=== PATIENT | male | born 1945 | race Caucasian/White ===

== ENCOUNTER → 2019-11-20 | Outpatient (CLI) | payer MEDICARE | END | disposition home or self-care (01) | LOC: LABWHC1 11:16 | PROVIDERS: ATTEND Urology | DX: C61 Malignant neoplasm of prostate (principal) | CPT/HCPCS: 36415; 84153 ==

== ENCOUNTER 2020-06-11 08:57 | Inpatient (IN) | payer MEDICARE ==
[2020-06-11] MEDS ORDERED: DILTIAZEM DRIP BOLUS FROM BAG 1 MG SOLN IV ONE (09:14)
[2020-06-11] MEDS ORDERED: SODIUM CHLORIDE 0.9% 500 ML 500 ML IV STA (09:14)
[2020-06-11] MEDS ORDERED: DILTIAZEM 125 MG in SODIUM CHLORIDE 0.9% 100 ML IV SCH (09:15)
[2020-06-11 09:21] LABS: Glucose,Whole Blood 112 mg/dL (75-99)
--- NOTE | 2020-06-11 09:37 | ED ---
General Adult HPI - General Source: patient, EMS, RN notes reviewed Mode of arrival: EMS Limitations: no limitations <Lauro Cabezas - Last Filed: 06/11/20 11:52> <Trena Trores - Last Filed: 06/12/20 23:03> - General Chief complaint: Syncope Stated complaint: syncope Time Seen by Provider: 06/11/20 09:01 - History of Present Illness Initial comments: This is a 75-year-old male presents emergency Department with chief complaint of a syncopal episode. Patient is brought in by [facility]. Patient states th at he started feeling lightheaded or dizzy he states she's had this happen the past states that he woke up and down he has no current headache or neck pain. Patient has a chest pain palpitations no nausea vomiting. Patient states that he does take multiple medications not exactly sure why he takes his medications. He is noted on metoprolol, Lasix, abduction, meclizine. Patient offers no other significant complaints. Patient states he had lab work yesterday. (Lauro Cabezas) - Related Data Home Medications Medication Instructions Recorded Confirmed Amitriptyline HCl [Elavil] 150 mg PO HS 06/11/20 06/11/20 Atorvastatin [Lipitor] 80 mg PO HS 06/11/20 06/11/20 Digoxin [Lanoxin] 125 mcg PO DAILY 06/11/20 06/11/20 Furosemide [Lasix] 20 mg PO DAILY 06/11/20 06/11/20 Levothyroxine Sodium [Synthroid] 50 mcg PO DAILY 06/11/20 06/11/20 Losartan Potassium 100 mg PO DAILY 06/11/20 06/11/20 Meclizine [Antivert] 12.5 mg PO DAILY 06/11/20 06/11/20 Metoprolol Tartrate [Lopressor] 50 mg PO BID 06/11/20 06/11/20 Potassium Chloride ER [K-Dur 10] 10 meq PO DAILY 06/11/20 06/11/20 Previous Rx's Medication Instructions Recorded Apixaban [Eliquis] 5 mg PO BID #60 tab 06/12/20 Allergies Allergy/AdvReac Type Severity Reaction Status Date / Time No Known Allergies Allergy Verified 06/11/20 11:41 Review of Systems ROS Other: All systems not noted in ROS Statement are negative. <Lauro Cabezas - Last Filed: 06/11/20 11:52> ROS Other: All systems not noted in ROS Statement are negative. <Trena Torres Carter - Last Filed: 06/12/20 23:03> ROS Statement: Those systems with pertinent positive or pertinent negative responses have been documented in the HPI. Past Medical History Past Medical History: Atrial Fibrillation, Coronary Artery Disease (CAD), Hypertension, Thyroid Disorder Additional Past Medical History / Comment(s): vertigo History of Any Multi-Drug Resistant Organisms: None Reported Past Surgical History: Hernia Repair Additional Past Surgical History / Comment(s): Left lung removed Past Psychological History: No Psychological Hx Reported Smoking Status: Former smoker Past Alcohol Use History: None Reported Past Drug Use History: None Reported <Lauro Cabezas - Last Filed: 06/11/20 11:52> General Exam Limitations: no limitations General appearance: alert, in no apparent distress Head exam: Present: atraumatic, normocephalic, normal inspection Eye exam: Present: normal appearance, PERRL, EOMI. Absent: scleral icterus, conjunctival injection, periorbital swelling ENT exam: Present: normal oropharynx, mucous membranes moist, TM's normal bilaterally, normal external ear exam. Absent: normal exam (Swelling inferiorly to the lobe patient reports is chronic) Neck exam: Present: normal inspection, full ROM. Absent: tenderness, meningismus, lymphadenopathy Respiratory exam: Present: normal lung sounds bilaterally. Absent: respiratory distress, wheezes, rales, rhonchi, stridor Cardiovascular Exam: Present: tachycardia, irregular rhythm, normal heart sounds. Absent: normal rhythm, systolic murmur, diastolic murmur, rubs, gallop, clicks GI/Abdominal exam: Present: soft, normal bowel sounds. Absent: distended, tenderness, guarding, rebound, rigid Neurological exam: Present: alert, oriented X3, CN II-XII intact, reflexes normal, other (Finger to nose intact bilaterally). Absent: motor sensory deficit Skin exam: Present: warm, dry, intact, normal color. Absent: rash <Lauro Cabezas - Last Filed: 06/11/20 11:52> Course Vital Signs 06/11/20 06/11/20 06/11/20 08:58 09:19 10:25 Temperature 98.3 F Pulse Rate 131 H 124 H Pulse Rate [ 136 H Apical] Respiratory 18 18 Rate Blood Pressure 138/90 141/87 O2 Sat by Pulse 97 96 Oximetry 06/11/20 06/11/20 06/11/20 12:01 12:40 14:19 Temperature 98.4 F 98.3 F Pulse Rate 120 H 115 H 92 Pulse Rate [ Apical] Respiratory 18 18 18 Rate Blood Pressure 112/84 120/76 148/77 O2 Sat by Pulse 96 97 95 Oximetry Medical Decision Making - Lab Data Result diagrams: 06/11/20 09:17 06/11/20 09:17 <Lauro Cabezas - Last Filed: 06/11/20 11:52> - Lab Data Result diagrams: 06/11/20 09:17 06/11/20 09:17 <Trena Torres - Last Filed: 06/12/20 23:03> - Medical Decision Making Patient presented for syncopal episode. Patient be in A. fib RVR patient is unsure about his history though is on digoxin, metoprolol most likely has underlying A. fib. EKG shows A. fib RVR. Patient will be admitted for rate control. Patient will be admitted with cardiology consult. Patient did have CT of the brain and C-spine secondary syncopal fall no acute abnormality. Patient's d-dimer was elevated to the chest is negative for PE. Patient's had prior surgical changes. (Lauro Cabezas) I was available for consultation in the emergency department. The history and physical exam were done by the midlevel provider. I was consulted for this patients care. I reviewed the case with the midlevel provider and based on their presentation of the patient, I agree with the assessment, medical decision making and plan of care as documented. Chart was dictated using [employer] dictation software. Attempts were made to correct any dictation errors however some typographical errors may persist. Patient was seen during a national state of emergency due to the Covid-19 pandemic. (Trena Torres) - Lab Data Lab Results 06/11/20 06/11/20 06/11/20 Range/Units 09:14 09:17 09:17 WBC 13.5 H (3.8-10.6) k/uL RBC 5.15 (4.30-5.90) m/uL Hgb 14.6 (13.0-17.5) gm/dL Hct 46.8 (39.0-53.0) % MCV 91.0 (80.0-100.0) fL MCH 28.4 (25.0-35.0) pg MCHC 31.2 (31.0-37.0) g/dL RDW 14.4 (11.5-15.5) % Plt Count 101 L (150-450) k/uL MPV 10.7 Neutrophils % 61 % Lymphocytes % 16 % Monocytes % 19 % Eosinophils % 1 % Basophils % 0 % Neutrophils # 8.2 H (1.3-7.7) k/uL Lymphocytes # 2.2 (1.0-4.8) k/uL Monocytes # 2.5 H (0-1.0) k/uL Eosinophils # 0.1 (0-0.7) k/uL Basophils # 0.1 (0-0.2) k/uL PT 10.4 (9.0-12.0) sec INR 1.0 (<1.2) APTT 23.3 (22.0-30.0) sec D-Dimer 1.64 H (<0.60) mg/L FEU Sodium (137-145) mmol/L Potassium (3.5-5.1) mmol/L Chloride (98-107) mmol/L Carbon Dioxide (22-30) mmol/L Anion Gap mmol/L BUN (9-20) mg/dL Creatinine (0.66-1.25) mg/dL Est GFR (CKD-EPI)AfAm (>60 ml/min/1.73 sqM) Est GFR (CKD-EPI)NonAf (>60 ml/min/1.73 sqM) Glucose (74-99) mg/dL POC Glucose (mg/dL) 112 H (75-99) mg/dL POC Glu Development Intern ID Peacock, Anu Calcium (8.4-10.2) mg/dL Magnesium (1.6-2.3) mg/dL Total Bilirubin (0.2-1.3) mg/dL AST (17-59) U/L ALT (4-49) U/L Alkaline Phosphatase (38-126) U/L Troponin I (0.000-0.034) ng/mL Total Protein (6.3-8.2) g/dL Albumin (3.5-5.0) g/dL TSH (0.465-4.680) mIU/L Free T4 (0.78-2.19) ng/dL Urine Color Urine Appearance (Clear) Urine pH (5.0-8.0) Ur Specific [place] (1.001-1.035) Urine Protein (Negative) Urine Glucose (UA) (Negative) Urine Ketones (Negative) Urine Blood (Negative) Urine Nitrite (Negative) Urine Bilirubin (Negative) Urine Urobilinogen (<2.0) mg/dL Ur Leukocyte Esterase (Negative) Digoxin ng/mL 06/11/20 06/11/20 06/11/20 Range/Units 09:17 09:17 09:17 WBC (3.8-10.6) k/uL RBC (4.30-5.90) m/uL Hgb (13.0-17.5) gm/dL Hct (39.0-53.0) % MCV (80.0-100.0) fL MCH (25.0-35.0) pg MCHC (31.0-37.0) g/dL RDW (11.5-15.5) % Plt Count (150-450) k/uL MPV Neutrophils % % Lymphocytes % % Monocytes % % Eosinophils % % Basophils % % Neutrophils # (1.3-7.7) k/uL Lymphocytes # (1.0-4.8) k/uL Monocytes # (0-1.0) k/uL Eosinophils # (0-0.7) k/uL Basophils # (0-0.2) k/uL PT (9.0-12.0) sec INR (<1.2) APTT (22.0-30.0) sec D-Dimer (<0.60) mg/L FEU Sodium 139 (137-145) mmol/L Potassium 4.6 (3.5-5.1) mmol/L Chloride 107 (98-107) mmol/L Carbon Dioxide 24 (22-30) mmol/L Anion Gap 8 mmol/L BUN 21 H (9-20) mg/dL Creatinine 0.97 (0.66-1.25) mg/dL Est GFR (CKD-EPI)AfAm 88 (>60 ml/min/1.73 sqM) Est GFR (CKD-EPI)NonAf 76 (>60 ml/min/1.73 sqM) Glucose 123 H (74-99) mg/dL POC Glucose (mg/dL) (75-99) mg/dL POC Glu Development Intern ID Calcium 8.4 (8.4-10.2) mg/dL Magnesium 1.6 (1.6-2.3) mg/dL Total Bilirubin 0.9 (0.2-1.3) mg/dL AST 32 (17-59) U/L ALT 24 (4-49) U/L Alkaline Phosphatase 103 (38-126) U/L Troponin I 0.019 (0.000-0.034) ng/mL Total Protein 7.2 (6.3-8.2) g/dL Albumin 4.2 (3.5-5.0) g/dL TSH 7.330 H (0.465-4.680) mIU/L Free T4 1.02 (0.78-2.19) ng/dL Urine Color Urine Appearance (Clear) Urine pH (5.0-8.0) Ur Specific [place] (1.001-1.035) Urine Protein (Negative) Urine Glucose (UA) (Negative) Urine Ketones (Negative) Urine Blood (Negative) Urine Nitrite (Negative) Urine Bilirubin (Negative) Urine Urobilinogen (<2.0) mg/dL Ur Leukocyte Esterase (Negative) Digoxin 0.6 ng/mL 06/11/20 Range/Units 10:37 WBC (3.8-10.6) k/uL RBC (4.30-5.90) m/uL Hgb (13.0-17.5) gm/dL Hct (39.0-53.0) % MCV (80.0-100.0) fL MCH (25.0-35.0) pg MCHC (31.0-37.0) g/dL RDW (11.5-15.5) % Plt Count (150-450) k/uL MPV Neutrophils % % Lymphocytes % % Monocytes % % Eosinophils % % Basophils % % Neutrophils # (1.3-7.7) k/uL Lymphocytes # (1.0-4.8) k/uL Monocytes # (0-1.0) k/uL Eosinophils # (0-0.7) k/uL Basophils # (0-0.2) k/uL PT (9.0-12.0) sec INR (<1.2) APTT (22.0-30.0) sec D-Dimer (<0.60) mg/L FEU Sodium (137-145) mmol/L Potassium (3.5-5.1) mmol/L Chloride (98-107) mmol/L Carbon Dioxide (22-30) mmol/L Anion Gap mmol/L BUN (9-20) mg/dL Creatinine (0.66-1.25) mg/dL Est GFR (CKD-EPI)AfAm (>60 ml/min/1.73 sqM) Est GFR (CKD-EPI)NonAf (>60 ml/min/1.73 sqM) Glucose (74-99) mg/dL POC Glucose (mg/dL) (75-99) mg/dL POC Glu Development Intern ID Calcium (8.4-10.2) mg/dL Magnesium (1.6-2.3) mg/dL Total Bilirubin (0.2-1.3) mg/dL AST (17-59) U/L ALT (4-49) U/L Alkaline Phosphatase (38-126) U/L Troponin I (0.000-0.034) ng/mL Total Protein (6.3-8.2) g/dL Albumin (3.5-5.0) g/dL TSH (0.465-4.680) mIU/L Free T4 (0.78-2.19) ng/dL Urine Color Light Yellow Urine Appearance Clear (Clear) Urine pH 6.5 (5.0-8.0) Ur Specific [place] 1.023 (1.001-1.035) Urine Protein Negative (Negative) Urine Glucose (UA) Negative (Negative) Urine Ketones Negative (Negative) Urine Blood Negative (Negative) Urine Nitrite Negative (Negative) Urine Bilirubin Negative (Negative) Urine Urobilinogen <2.0 (<2.0) mg/dL Ur Leukocyte Esterase Negative (Negative) Digoxin ng/mL Critical Care Time Critical Care Time: Yes Total Critical Care Time: 35 <Lauro Cabezas - Last Filed: 06/11/20 11:52> Critical Care Time: 35 minutes of critical care time were used to initiate evaluated the patient, ordering labs EKG chest x-ray and CT patient found to be in A. fib RVR patient was started on Cardizem given 2 boluses of 10 mg. Patient will be admitted for A. fib RVR was given his dose obstruction as a subtherapeutic. Patient did have multiple imaging which was negative for acute abnormality. (Lauro Cabezas) Disposition <Lauro Cabezas - Last Filed: 06/11/20 11:52> <Trena Torres - Last Filed: 06/12/20 23:03> Clinical Impression: Syncope, Atrial fibrillation with RVR Disposition: ADMITTED IP TO THIS HOSP Condition: Fair
[2020-06-11 09:40] LABS: Albumin 4.2 g/dL (3.5-5.0); Calcium 8.4 mg/dL (8.4-10.2); Total Bilirubin 0.9 mg/dL (0.2-1.3); Total Protein 7.2 g/dL (6.3-8.2)
[2020-06-11 09:42] LABS: Digoxin 0.6 ng/mL; Magnesium 1.6 mg/dL (1.6-2.3); Potassium 4.6 mmol/L (3.5-5.1)
[2020-06-11 09:49] LABS: Basophils # (A) 0.1 k/uL (0-0.2); Basophils % (A) 0 %; Eosinophils # (A) 0.1 k/uL (0-0.7); Eosinophils % (A) 1 %; HCT 46.8 % (39.0-53.0); HGB 14.6 gm/dL (13.0-17.5); Lymphocytes # (A) 2.2 k/uL (1.0-4.8); Lymphocytes % (A) 16 %; MCH 28.4 pg (25.0-35.0); MCHC 31.2 g/dL (31.0-37.0); Mean Platelet Volume 10.7; Monocytes # (A) 2.5 k/uL (0-1.0); Monocytes % (A) 19 %; Neutrophils # (A) 8.2 k/uL (1.3-7.7); Neutrophils % (A) 61 %; Partial Thromboplastin Time 23.3 sec (22.0-30.0); Platelet Count 101 k/uL (150-450); Prothrombin Time 10.4 sec (9.0-12.0); RBC 5.15 m/uL (4.30-5.90); RDW 14.4 % (11.5-15.5); WBC 13.5 k/uL (3.8-10.6)
--- NOTE | 2020-06-11 10:20 | XR ---
EXAMINATION TYPE: XR chest 2V DATE OF EXAM: 06/11/2020 COMPARISON: 09/21/2013 INDICATION: Pneumonectomy TECHNIQUE: Frontal and lateral views of the chest are obtained. FINDINGS: Heart and mediastinum are shifted into the left thorax. Surgical clips are at the left hilar region. There is opacification to the left hemithorax. Hyperinflation of the right lung is present. No suspic ious infiltrate.. 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 IMPRESSION: 1. Post left pneumonectomy changes.
--- NOTE | 2020-06-11 10:22 | CT ---
EXAMINATION TYPE: CT brain tdine wo con DATE OF EXAM: 06/11/2020 COMPARISON: 03/30/2013 HISTORY: Syncope and fall CT DLP: 1264 mGycm Automated exposure control for dose reduction was used. TECHNIQUE: CT scan of the head and cervical spine are performed without contrast. FINDINGS: Mild generalized degenerative change. Faint low-attenuation the white matter is nonspecif ic but most typical remote microvascular ischemia. Calvarium intact. Basal ganglia calcification seen . Intracranial atherosclerotic changes noted. There is increased soft tissue attenuation within the e xternal auditory canal. Truncation of the mastoid air cells on the left noted correlate for previous surgery versus congenital finding. Odontoid intact. Multilevel hypertrophic spurring and degenerative disc disease noted. Multilevel fac et arthropathy with multilevel neural foraminal encroachment. Suspect multilevel canal stenosis. Multilevel facet arthropathy. There is a left apical attenuation which likely represents the aorta an d postpneumonectomy changes. 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 IMPRESSION: 1. There is no acute fracture or dislocation evident in the cervical spine. Severe multilevel degener ative disc disease and hypertrophic spurring with multilevel foraminal encroachment and canal stenosi s suspected. 2. Degenerative change with the no acute hemorrhage or mass effect. 3. Suspected post pneumonectomy changes on the left with aberrant right subclavian artery. 4. There appears to be increased soft tissue attenuation involving the left external auditory canal e xtending to the middle ear correlate with physical exam.
--- NOTE | 2020-06-11 10:36 | CT ---
EXAMINATION TYPE: CT chest angio for PE DATE OF EXAM: 06/11/2020 COMPARISON: 09/02/2013 HISTORY: 75-year-old male Syncope, elevated d-dimer TECHNIQUE: Contiguous axial scanning of the chest performed with IV Contrast, patient injected with 1 00, wasted 22 ml mL of Isovue 370. Coronal/sagittal MIP reconstructions performed. CT DLP: 461.7 mGycm Automated exposure control for dose reduction was used. FINDINGS: Heart normal size without pericardial effusion. No reflux of contrast into the hepatic veins. This se ems to be some left atrial dilatation and large caliber to the main right pulmonary artery at 2.8 cm. The aorta shows aberrant right subclavian artery which takes a retroesophageal course. Ectatic upper descending thoracic aorta at 3.3 cm with scattered mild to moderate atherosclerotic kane cifications. Satisfactory opacification of the pulmonary arterial system. Breathing motion scattered in the upper and lower lungs. No visualized pulmonary embolus. No consolidation or pleural effusion on the right. Redemonstrated chronic postpneumonectomy changes on the left with chronic pleural effusion and pleura l thickening on the left, unchanged from 2014. Moderate-sized hiatal hernia. Questionable thickening here. Bones: Bridging anterior endplate spondylosis throughout. There seems to be some interbody ankylosis and kyphotic deformity at the thoracolumbar junction. IMPRESSION: 1. SOME BREATHING MOTION ARTIFACT. NO DEFINITE PULMONARY EMBOLUS. 2. SIMILAR CHANGES OF LEFT PNEUMONECTOMY WITH CORRESPONDING VOLUME LOSS AND CHRONIC PLEURAL FLUID ON THE LEFT. 3. CORRELATE FOR ELEVATED LEFT HEART PRESSURES GIVEN SOME LEFT ATRIAL DILATATION AND POSSIBLE PULMONA RY ARTERIAL HYPERTENSION. 4. INCIDENTAL ABERRANT RIGHT SUBCLAVIAN ARTERY. 5. MODERATE SIZED HIATAL HERNIA. SOME QUESTIONABLE THICKENING HERE MAY RELATE TO REDUNDANT STOMACH WA LL. CORRELATE WITH PATIENT'S SYMPTOMS TO DETERMINE THE NEED FOR DIRECT VISUALIZATION.
[2020-06-11 10:47] LABS: Appearance,Urine Clear (Clear); Bilirubin,Urine Negative (Negative); Blood,Urine Negative (Negative); Color,Urine Light Yellow; Glucose,Urine (UA) Negative (Negative); Ketones,Urine Negative (Negative); Leukocyte Esterase,Urine Negative (Negative); Nitrite,Urine Negative (Negative); PH, Urine 6.5 (5.0-8.0); Protein,Urine Negative (Negative); Specific Gravity,Urine 1.023 (1.001-1.035); Urobilinogen,Urine <2.0 mg/dL (<2.0)
[2020-06-11] MEDS ORDERED: NALOXONE 0.4 MG/ML 1 ML VIAL IV PRN (11:55)
[2020-06-11] MEDS ORDERED: DIGOXIN 125 MCG TAB PO SCH (12:00)
[2020-06-11] MEDS: ACETAMINOPHEN TAB 325 MG TAB PO PRN (12:12)
--- NOTE | 2020-06-11 13:16 | XR ---
EXAMINATION TYPE: XR shoulder complete RT DATE OF EXAM: 06/11/2020 COMPARISON: NONE HISTORY: Pain TECHNIQUE: Shoulder examined in 3 views FINDINGS: The humeral head articulates with the glenoid. There may be some deformity of the anterior humeral he ad which could be related to prior dislocation. There is thinning of the glenohumeral junction compat ible osteoarthritis. There is narrowing of the acromiohumeral space could indicate underlying chronic rotator cuff tear. The acromio-clavicular junction is normal. No acute fractures or dislocations are evident. A follow up study can be performed 7-10 days from acute trauma for continued pain. IMPRESSION: 1. No acute osseous abnormality. 2. Chronic changes including osteoarthritis and possible chronic rotator cuff tear.
--- NOTE | 2020-06-11 14:16 | P.HPIM ---
History of Present Illness H&P Date: 06/11/20 Chief Complaint: Syncope This is a 75-year-old male patient of Dr. Oglesby with past medical history of non-small cell lung cancer diagnosed in 2009 status post lobectomy, remote history of tobacco use, remote history of alcohol abuse, alcoholic peripheral neuropathy, hypertension, coronary artery disease, paroxysmal atrial fibrillation, hypothyroidism. Patient was just seen in the office yesterday and did not have any new symptoms at the time. Patient was sent this morning was standing to take his medications and felt some lightheadedness and an end up passing out. Patient thinks that he was out for about 5 minutes. His neighbor in the apartment below him heard the fall and EMS was contacted. Patient believes he hit his head and his right shoulder. Patient was then brought into [facility] emergency center for evaluation. Patient was found to be afebrile, heart rate 131, blood pressure 138/90, pulse ox 97%. Patient was treated for atrial fibrillation started on Cardizem drip. WBC 13.5, hemoglobin 14.6, platelet count 101. D-dimer 1.64. Blood sugar 112. Electrolytes normal. BUN 21 creatinine 0.97. Liver function tests normal. Troponin 0.019. Digoxin 0.6. Urinalysis negative. CT chest angiogram negative for definite chronic pleural fluid on the left. Correlate for elevated left heart pressures given left atrial dilatation and possible pulmonary artery hypertension. Incidental aberrant right subclavian artery. Moderate size hiatal hernia pulmonary embolism. CAT scan of the brain and cervical spine revealed no acute fracture dislocation the cervical spine. Severe multilevel degenerative disc disease and hypertrophic spurring with multilevel foraminal encroachment and canal stenosis suspected. Degenerative change with no acute hemorrhage or mass effect. Suspected post pneumonectomy changes on the left with aberrant right subclavian artery. Increased soft tissue attenuation involving the left external auditory canal. Chest x-ray revealed left pneumonectomy changes. EKG appears to be a supraventricular tachycardia. Patient to be admitted to the hospital and cardiology consult. Right shoulder x-rays, echocardiogram and carotid US ordered. Review of Systems Constitutional: Denies anorexia, Denies chills, Denies daytime sleepiness, Denies fatigue, Denies fever, Denies lethargy, Denies malaise, Denies poor appetite, Denies weakness, Denies weight loss Eyes: denies blurred vision, denies pain Ears, nose, mouth and throat: Reports vertigo, Denies dysphagia, Denies headache, Denies nasal congestion, Denies nasal discharge, Denies sore throat Cardiovascular: Reports lightheadedness, Reports syncope, Denies decreased exercise tolerance, Denies dyspnea on exertion, Denies edema, Denies leg edema, Denies palpitations, Denies rapid heart beat, Denies shortness of breath Respiratory: Denies cough, Denies cough with sputum, Denies dyspnea, Denies exc essive sputum, Denies hemoptysis, Denies home oxygen, Denies respiratory infections, Denies wheezing Gastrointestinal: Denies abdominal pain, Denies belching, Denies bloating, Denies BRBPR, Denies coffee ground emesis, Denies diarrhea, Denies hematemesis, Denies hematochezia, Denies loss of appetite, Denies nausea, Denies vomiting Genitourinary: Denies dysuria, Denies urinary retention Musculoskeletal: Denies frequent falls, Denies gait dysfunction, Denies muscle weakness, Denies myalgias Musculoskeletal: right: shoulder pain Integumentary: Denies pruritus, Denies rash, Denies wounds Neurological: Reports syncope, Reports vertigo, Denies aphasia, Denies change in mentation, Denies change in speech, Denies confusion, Denies gait dysfunction, Denies numbness, Denies weakness Psychiatric: Denies anxiety, Denies depression Endocrine: Denies fatigue, Denies weight change Past Medical History Past Medical History: Coronary Artery Disease (CAD), Hypertension, Thyroid Disorder Additional Past Medical History / Comment(s): vertigo History of Any Multi-Drug Resistant Organisms: None Reported Past Surgical History: Hernia Repair Additional Past Surgical History / Comment(s): Left lung removed Past Psychological History: No Psychological Hx Reported Smoking Status: Former smoker Past Alcohol Use History: None Reported Additional Past Alcohol Use History / Comment(s): Patient was a smoker one pack per day for 17 years and quit in 2008. He also has history of alcohol abuse with drinking 7 beers per day and quit 17 years ago. Past Drug Use History: None Reported - Past Family History Father Additional Family Medical History / Comment(s): Father at age 71 from a myocardial infarction. Mother Additional Family Medical History / Comment(s): Mother at age 92 from old age. Brother(s) Additional Family Medical History / Comment(s): Patient has 3 brothers alive with no major medical problems. One brother is dying from stomach cancer. Sister(s) Additional Family Medical History / Comment(s): Patient has one sister and she is alive. History of hypertension and hyperlipidemia. Medications and Allergies Home Medications Medication Instructions Recorded Confirmed Type Amitriptyline HCl [Elavil] 150 mg PO HS 06/11/20 06/11/20 History Atorvastatin [Lipitor] 80 mg PO HS 06/11/20 06/11/20 History Digoxin [Lanoxin] 125 mcg PO DAILY 06/11/20 06/11/20 History Furosemide [Lasix] 20 mg PO DAILY 06/11/20 06/11/20 History Levothyroxine Sodium [Synthroid] 50 mcg PO DAILY 06/11/20 06/11/20 History Losartan Potassium 100 mg PO DAILY 06/11/20 06/11/20 History Meclizine [Antivert] 12.5 mg PO DAILY 06/11/20 06/11/20 History Metoprolol Tartrate [Lopressor] 50 mg PO BID 06/11/20 06/11/20 History Potassium Chloride ER [K-Dur 10] 10 meq PO DAILY 06/11/20 06/11/20 History Apixaban [Eliquis] 5 mg PO BID #60 tab 06/12/20 Rx Allergies Allergy/AdvReac Type Severity Reaction Status Date / Time No Known Allergies Allergy Verified 06/11/20 11:41 Physical Exam Vitals: Vital Signs Temp Pulse Pulse Resp BP Pulse Ox 06/11/20 12:40 98.4 F 115 H 18 120/76 97 06/11/20 12:01 120 H 18 112/84 96 06/11/20 10:25 124 H 18 141/87 96 06/11/20 09:19 136 H 06/11/20 08:58 98.3 F 131 H 18 138/90 97 Intake and Output 06/10/20 06/11/20 06/11/20 22:59 06:59 14:59 Intake Total 7.083 Balance 7.083 Intake: Intake, IV Titration 7.083 Amount Diltiazem 125 mg In 7.083 Sodium Chloride 0.9% 100 ml @ 5 MG/HR 5 mls/hr IV .Q24H [facility] Rx#:[id number] Other: Weight 73.482 kg Physical Examination Gen: This is a 75-year-old male. He is resting on the ER stretcher and appears to be comfortable and in no acute distress. HEENT: Head is atraumatic, normocephalic. Pupils equal, round. Sclerae is anicteric. NECK: Supple. No JVD. No lymphadenopathy. No thyromegaly. LUNGS: Clear to auscultation. No wheezes or rhonchi. No intercostal retractions. HEART: Regular rate and rhythm. No murmur. ABDOMEN: Soft. Bowel sounds are present. No masses. No tenderness. EXTREMITIES: No pedal edema. No calf tenderness. Dorsalis pedis +2 bilaterally. NEUROLOGICAL: Patient is awake, alert and oriented x3. Cranial nerves 2 through 12 are grossly intact. Results CBC & Chem 7: 06/11/20 09:17 06/11/20 09:17 Labs: Abnormal Lab Results - Last 24 Hours (Table) 06/11/20 06/11/20 06/11/20 Range/Units 09:14 09:17 09:17 WBC 13.5 H (3.8-10.6) k/uL Plt Count 101 L (150-450) k/uL Neutrophils # 8.2 H (1.3-7.7) k/uL Monocytes # 2.5 H (0-1.0) k/uL D-Dimer 1.64 H (<0.60) mg/L FEU BUN (9-20) mg/dL Glucose (74-99) mg/dL POC Glucose (mg/dL) 112 H (75-99) mg/dL 06/11/20 Range/Units 09:17 WBC (3.8-10.6) k/uL Plt Count (150-450) k/uL Neutrophils # (1.3-7.7) k/uL Monocytes # (0-1.0) k/uL D-Dimer (<0.60) mg/L FEU BUN 21 H (9-20) mg/dL Glucose 123 H (74-99) mg/dL POC Glucose (mg/dL) (75-99) mg/dL Thrombosis Risk Factor Assmnt - DVT/VTE Prophylaxis DVT/VTE Prophylaxis: Pharmacologic Prophylaxis ordered Assessment and Plan Assessment: 1. Syncopal episode of unclear etiology. Carotid ultrasound, echocardiogram, cardiology consult, cardiac monitoring. 2. Tachycardia that appears to be SVT, history of paroxysmal atrial fibrillation. Consult with cardiology. Patient is currently on Cardizem drip. Continue digoxin 125 g daily, Lopressor 50 mg twice daily. Nexium 3. Hypertension. Continue losartan 100 mg daily, Lopressor. 4. History of non-small cell lung cancer diagnosed in 2009 status post lo bectomy, stable. 5. Remote history of tobacco use and alcohol abuse. 6. Alcohol induced peripheral neuropathy. Continue Elavil 150 mg at bedtime. 7. Hypothyroidism. Continue levothyroxine 50 g daily. TSH 7.140. 8. Elevated d-dimer. Pulmonary embolism ruled out. 9. History of coronary artery disease, stable. No complaints of chest pain. 10. GI prophylaxis. Protonix. 11. DVT prophylaxis. Heparin subcu. CODE STATUS: Full code Patient will be admitted to the hospital for a minimum of 2 night stay. Discharge plan: Home in the next 24-48 hours Impression and plan of care have been directed as dictated by the signing physician. Jada Burr nurse practitioner acting as scribe for signing physician.
[2020-06-11] MEDS ORDERED: METOPROLOL TARTRATE 25 MG TAB PO STA (14:52)
--- NOTE | 2020-06-11 15:19 | US ---
EXAMINATION TYPE: US carotid duplex BILAT DATE OF EXAM: 06/11/2020 COMPARISON: NONE CLINICAL HISTORY: syncope. Patient states he fell today. Patient takes meds for HTN. EXAM MEASUREMENTS: RIGHT: Peak Systolic Velocity (PSV) cm/sec ----- Right CCA: 176.6 ----- Right ICA: 106.4 ----- Right ECA: 194.8 ICA/CCA ratio: 0.6 RIGHT: End Diastole cm/sec ----- Right CCA: 20.9 ----- Right ICA: 14.4 ----- Right ECA: 10.9 LEFT: Peak Systolic Velocity (PSV) cm/sec ----- Left CCA: 85.3 ----- Left ICA: 140.8 ----- Left ECA: 125.2 ICA/CCA ratio: 1.7 LEFT: End Diastole cm/sec ----- Left CCA: 8.9 ----- Left ICA: 9.8 ----- Left ECA: 0.0 VERTEBRALS (direction of flow): Right Vertebral: Antegrade Left Vertebral: Antegrade Rhythm: Arrhythmia Bilateral wall thickening. Plaque seen in bilateral bulbs. No significant stenosis. Elevated right CCA, left bulb and bilateral ECA velocities. IMPRESSION: Atheromatous plaquing present bilaterally. 2. Moderate Significant flow-limiting stenosis is estimated between 50 and 69% on the left internal c arotid artery Criteria for Assigning % of Stenosis / Diameter reduction (Estimation based on the indirect measurements of the internal carotid artery velocities (ICA PSV). 1. Normal (no stenosis)=ICA PSV < 125 cm/s: ratio < 2.0: ICA EDV<40 cm/s. 2. Less than 50% stenosis=ICA PSV < 125 cm/s: ratio < 2.0: ICA EDV<40 cm/s. 3. 50 to 69% stenosis=ICA PSV of 125 to 230 cm/s: ration 2.0 ? 4.0: ICA EDV 40-100 cm/s. 4. Greater than 70% stenosis to near occlusion= ICA PSV > 230 cm/s: ratio > 4.0: ICA EDV > 100 cm/s. 5. Near occlusion= ICA PSV velocities may be low or undetectable: variable ratio and ICA EDV. 6. Total occlusion=unable to detect flow.
--- NOTE | 2020-06-11 17:38 | ECHOF ---
Referral Reason:LVF MEASUREMENTS -------- HEIGHT: 162.6 cm WEIGHT: 73.5 kg BP: RVIDd: 3.2 cm (< 3.3) IVSd: 2.4 cm (0.6 - 1.1) LVIDd: 3.3 cm (3.9 - 5.3) LVPWd: 1.9 cm (0.6 - 1.1) IVSs: 2.5 cm LVIDs: 2.9 cm LVPWs: 1.7 cm LA Diam: 4.2 cm (2.7 - 3.8) Ao Diam: 3.3 cm (2.0 - 3.7) AV Cusp: 1.6 cm (1.5 - 2.6) LA Diam: 4.6 cm (2.7 - 3.8) MV EXCURSION: 18.351 mm (> 18.000) MV EF SLOPE: 61 mm/s (70 - 150) AV maxP.23 mmHg AV meanP.11 mmHg FINDINGS -------- Sinus rhythm. This was a techncally difficult study with suboptimal views, , Lumason utilized for enhancement of im ages. There is severe concentric left ventricular hypertrophy. Overall left ventricular systolic function is low-normal with, an EF between 50 - 55 %. Wai with Lvot PG 19.80mmHg, mean gradient 7.82mmHg. The right ventricle is normal in size. The left atrium is mildly dilated. The right atrial size is normal. The aortic root size is normal. There is no pericardial effusion. CONCLUSIONS -------- 1. This was a techncally difficult study with suboptimal views, , Lumason utilized for enhancement of images. 2. There is severe concentric left ventricular hypertrophy. 3. Overall left ventricular systolic function is low-normal with, an EF between 50 - 55 %. 4. Wai with Lvot PG 19.80mmHg, mean gradient 7.82mmHg. 5. The right ventricle is normal in size. 6. The left atrium is mildly dilated. 7. The right atrial size is normal. 8. The aortic root size is normal. 9. There is no pericardial effusion. CARD CHECKER: Allie Pang RDCS
[2020-06-11] MEDS: ATORVASTATIN 80 MG TAB PO SCH (20:00)
[2020-06-11] MEDS: AMITRIPTYLINE HCL 50 MG TAB PO SCH (20:36)
[2020-06-11 20:45] LABS: T4, Free (Free Thyroxine) 1.02 ng/dL (0.78-2.19)
[2020-06-11] MEDS ORDERED: METOPROLOL TARTRATE 25 MG TAB PO SCH (21:00)
[2020-06-11] MEDS ORDERED: METOPROLOL TARTRATE 50 MG TAB PO SCH ×2 (21:00)
[2020-06-12] MEDS: LEVOTHYROXINE 50 MCG TAB PO SCH (06:13)
[2020-06-12] MEDS: amLODIPine 5 MG TAB PO SCH (09:32)
[2020-06-12] MEDS: POTASSIUM CHLORIDE ER 10 MEQ TAB.ER.PRT PO SCH (09:32)
[2020-06-12] MEDS: FUROSEMIDE 20 MG TAB PO SCH (09:32)
[2020-06-12] MEDS: LOSARTAN 50 MG TAB PO SCH (09:32)
[2020-06-12] MEDS: MECLIZINE 12.5 MG TAB PO SCH (10:17)
--- NOTE | 2020-06-12 11:46 | CONS ---
CONSULTATION CHIEF COMPLAINT: Syncope. Cuauhtemoc is a 75-year-old gentleman with history of hypothyroidism, hypertension, paroxysmal atrial fibrillation, who presented to the hospital having had an episode of syncope at home. The patient states that he stood up from a sitting position, felt dizzy, had blurred vision and then subsequently suddenly passed out. There is no bladder or bowel incontinence. No injury. No focal neurological deficits. The patient states that he has had dizziness in the past, but no real syncope. The patient has had an episode of atrial fibrillation several years ago. On his initial presentation to the hospital, his EKG showed atrial fibrillation with poorly controlled ventricular rate. Subsequently, he converted back to sinus rhythm and had sinus bradycardia. His heart rates were low in the 40s and 50s and has a very prolonged first-degree AV block and had pauses that were around 2 seconds. The patient did not have any evidence of high-grade AV block nor did he have significant pauses or have further episodes of syncope in the hospital. He also has orthostatic changes. His syncope could be due to bradycardia related to the atrial fibrillation and the prolonged first-degree AV block or could be due to his orthostatic changes. I am going to stop the digoxin that he is on, stop the metoprolol. Continue the losartan and add amlodipine because of poorly controlled blood pressures. I am going to add Eliquis for anticoagulation and midodrine because of the orthostatic hypotension changes. The patient had an echocardiogram that shows concentric left ventricular hypertrophy with normal LV function. He did not have any evidence of coronary artery disease. We will ambulate him and see how he does. If he behaves like a tachy-arabella syndrome then he will need and would benefit from permanent pacemaker. The patient is reluctant to have a pacemaker at this time. PAST MEDICAL HISTORY: Significant for hypertension, hypothyroidism. MEDICATIONS: Medications include Lopressor 50 b.i.d., K-Dur, Antivert, losartan, Synthroid, Lasix 20 daily, digoxin, Lipitor, Elavil. ALLERGIES: No known drug allergies. FAMILY HISTORY: Negative for premature coronary artery disease. SOCIAL HISTORY: Negative for current smoking, EtOH abuse, or drug abuse. REVIEW OF SYSTEMS: HEENT is unremarkable. CARDIAC: As described above. RESPIRATORY: As described above. GI: Negative. GENITOURINARY: Negative. ALLERGY/IMMUNOLOGY: Negative. SKIN: Negative. MUSCULOSKELETAL: Significant for arthritis. PSYCHOSOCIAL: Negative. ENDOCRINE: Negative. HEMATOLOGIC: Negative. DERM: Negative. CONSTITUTIONAL: Negative. ONCOLOGICAL: Negative. 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 The patient also has severe hearing impairment. PHYSICAL EXAMINATION: Heart rate is 70 beats per minute. Blood pressure is 190/78 with orthostatic changes, O2 saturation is 98%. There is no jugular venous distention. Carotid upstroke is diminished. There is no bruit. Chest exam reveals good air entry bilaterally. Heart exam reveals first and second heart sounds. Systolic murmur at the apex. Abdomen is soft. Exam of extremities did not reveal any edema. Peripheral pulses are felt. LABS: Labs showed that the D-dimer is 1.6. Hemoglobin is 14.6. Troponin is negative. He had a CT scan of the chest that showed moderate-size hiatal hernia. There is no evidence of pulmonary embolism. An echocardiogram showed concentric left ventricular hypertrophy with normal LV function. A carotid duplex study showed a 50% to 60% stenosis involving the left carotid artery. ASSESSMENT: 1. Syncope. 2. Paroxysmal atrial fibrillation. 3. Orthostatic hypotension. PLAN: I will hold the beta blockers and digoxin at this time. His syncope could be due to bradycardia as he converts from atrial fibrillation to sinus rhythm or could be due to orthostatic hypotension. We will treat both see how he does. Hopefully home tomorrow with continued outpatient workup. MMCHANELLL / EZRAN: [id number] /
[2020-06-12] MEDS: MIDODRINE 5 MG TAB PO SCH ×2 (13:13→20:25)
[2020-06-12] MEDS ORDERED: MAGNESIUM HYDROXIDE 2,400 MG/10 ML CUP PO PRN (15:04)
--- NOTE | 2020-06-12 15:18 | P.PN ---
Subjective Progress Note Date: 06/12/20 This is a 75-year-old male patient of Dr. Oglesby with past medical history of non-small cell lung cancer diagnosed in 2009 status post lobectomy, remote history of tobacco use, remote history of alcohol abuse, alcoholic peripheral neuropathy, hypertension, coronary artery disease, history of SVT/ atrial tachycardia, hypothyroidism. Patient was just seen in the office yesterday and did not have any new symptoms at the time. Patient was sent this morning was standing to take his medications and felt some lightheadedness and an end up passing out. Patient thinks that he was out for about 5 minutes. His neighbor in the apartment below him heard the fall and EMS was contacted. Patient believes he hit his head and his right shoulder. Patient was then brought into [facility] emergency center for evaluation. Patient was found to be afebrile, heart rate 131, blood pressure 138/90, pulse ox 97%. Patient was treated for atrial fibrillation started on Cardizem drip. WBC 13.5, hemoglobin 14.6, platelet count 101. D-dimer 1.64. Blood sugar 112. Electrolytes normal. BUN 21 creatinine 0.97. Liver function tests normal. Troponin 0.019. Digoxin 0.6. Urinalysis negative. CT chest angiogram negative for definite chronic pleural fluid on the left. Correlate for elevated left heart pressures given left atrial dilatation and possible pulmonary artery hypertension. Incidental aberrant right subclavian artery. Moderate size hiatal hernia pulmonary embolism. CAT scan of the brain and cervical spine revealed no acute fracture dislocation the cervical spine. Severe multilevel degenerative disc disease and hypertrophic spurring with multilevel foraminal encroachment and canal stenosis suspected. Degenerative change with no acute hemorrhage or mass effect. Suspected post pneumonectomy changes on the left with aberrant right subclavian artery. Increased soft tissue attenuation involving the left external auditory canal. Chest x-ray revealed left pneumonectomy changes. EKG tachycardia. Patient to be admitted to the hospital and cardiology consult. Right shoulder x-rays, echocardiogram and carotid US ordered. 06/12: Carotid ultrasound revealed moderate 50-69% left internal carotid artery stenosis. Right shoulder x-ray showed no acute osseous abnormality. Chronic changes with osteoarthritis and possible chronic rotator cuff tear. Echocardiogram has been completed but report is not able to be open to be reviewed. Patient has been seen by cardiology. His heart rate has been in the low 40s and 50s with first-degree AV block with pauses up to 2 seconds. Orthostatic vital signs were positive. Cardiology has evaluated and started on eliquis for A. fib and patient is being monitored for tachybradycardia syndrome. Midodrine was started for orthostatic hypotension. Lopressor and digoxin discontinued. Patient denies any lightheadedness or dizziness. He is complaining of constipation for which Senokot and oak of Magnesia added. Antic ipate monitoring overnight and possible discharge tomorrow. Objective - Vital Signs Vital signs: Vital Signs Temp 97.9 F 06/12/20 08:28 Pulse 81 06/12/20 09:09 Resp 16 06/12/20 08:28 BP 192/93 06/12/20 09:09 Pulse Ox 98 06/12/20 08:28 Intake & Output 06/11/20 06/12/20 06/12/20 18:59 06:59 18:59 Intake Total 7.083 Balance 7.083 Weight 73.482 kg Intake: Intake, IV Titration 7.083 Amount Diltiazem 125 mg In 7.083 Sodium Chloride 0.9% 100 ml @ 5 MG/HR 5 mls/hr IV .Q24H [facility] Rx#:[id number] Other: # Voids 2 - Exam Review of Systems Constitutional: Denies anorexia, Denies chills, Denies daytime sleepiness, Denies fatigue, Denies fever, Denies lethargy, Denies malaise, Denies poor appetite, Denies weakness, Denies weight loss Eyes: denies blurred vision, denies pain Ears, nose, mouth and throat: Reports vertigo, Denies dysphagia, Denies headache, Denies nasal congestion, Denies nasal discharge, Denies sore throat Cardiovascular: Reports lightheadedness, Reports syncope, Denies decreased exercise tolerance, Denies dyspnea on exertion, Denies edema, Denies leg edema, Denies palpitations, Denies rapid heart beat, Denies shortness of breath Respiratory: Denies cough, Denies cough with sputum, Denies dyspnea, Denies excessive sputum, Denies hemoptysis, Denies home oxygen, Denies respiratory infections, Denies wheezing Gastrointestinal: Denies abdominal pain, Denies belching, Denies bloating, Denies BRBPR, Denies coffee ground emesis, Denies diarrhea, Denies hematemesis, Denies hematochezia, Denies loss of appetite, Denies nausea, Denies vomiting Genitourinary: Denies dysuria, Denies urinary retention Musculoskeletal: Denies frequent falls, Denies gait dysfunction, Denies muscle weakness, Denies myalgias Musculoskeletal: right: shoulder pain Integumentary: Denies pruritus, Denies rash, Denies wounds Neurological: Reports syncope, Reports vertigo, Denies aphasia, Denies change in mentation, Denies change in speech, Denies confusion, Denies gait dysfunction, Denies numbness, Denies weakness Psychiatric: Denies anxiety, Denies depression Endocrine: Denies fatigue, Denies weight change Physical Examination Gen: This is a 75-year-old male. He is resting on the edge of the bed and appears to be comfortable and in no acute distress. HEENT: Head is atraumatic, normocephalic. Pupils equal, round. Sclerae is anicteric. NECK: Supple. No JVD. No lymphadenopathy. No thyromegaly. LUNGS: Clear to auscultation. No wheezes or rhonchi. No intercostal retractions. HEART: Regular rate and rhythm. No murmur. ABDOMEN: Soft. Bowel sounds are present. No masses. No tenderness. EXTREMITIES: No pedal edema. No calf tenderness. Dorsalis pedis +2 bilaterally. NEUROLOGICAL: Patient is awake, alert and oriented x3. Cranial nerves 2 through 12 are grossly intact. - Labs CBC & Chem 7: 06/11/20 09:17 06/11/20 09:17 Labs: Abnormal Lab Results - Last 24 Hours (Table) 06/11/20 Range/Units 09:17 TSH 7.330 H (0.465-4.680) mIU/L Assessment and Plan Assessment: 1. Syncopal episode possibly related to orthostatic hypotension, tachybradycardia syndrome. Carotid ultrasound as above, echocardiogram, cardi ology consult, cardiac monitoring. Patient started on midodrine 2.5 mg oral 3 times daily. 2. Tachycardia that appears to be SVT, cardiology has diagnosed with A. fib and started on eliquis. Consult with cardiology appreciated. Digoxin 125 g daily, Lopressor 50 mg twice daily are both discontinued due to bradycardia. 3. Hypertension. Continue losartan 100 mg daily. 4. History of non-small cell lung cancer diagnosed in 2009 status post lobectomy, stable. 5. Remote history of tobacco use and alcohol abuse. 6. Alcohol induced peripheral neuropathy. Continue Elavil 150 mg at bedtime. 7. Hypothyroidism. Continue levothyroxine 50 g daily. TSH 7.140. 8. Elevated d-dimer. Pulmonary embolism ruled out. 9. History of coronary artery disease, stable. No complaints of chest pain. 10. GI prophylaxis. Protonix. 11. DVT prophylaxis. Heparin subcu. CODE STATUS: Full code Discharge plan: Home in the next 24-48 hours Impression and plan of care have been directed as dictated by the signing physician. Jada Burr nurse practitioner acting as scribe for signing tere cano.
[2020-06-12] MEDS: SENNOSIDES-DOCUSATE SODIUM 1 EACH TAB PO SCH (16:58)
[2020-06-12] MEDS: APIXABAN 5 MG TAB PO SCH (20:31)
[2020-06-12] MEDS: AMITRIPTYLINE HCL 50 MG TAB PO SCH (20:32)
[2020-06-12] MEDS: ATORVASTATIN 80 MG TAB PO SCH (20:32)
[2020-06-13] MEDS: LEVOTHYROXINE 50 MCG TAB PO SCH (06:44)
[2020-06-13] MEDS: MIDODRINE 5 MG TAB PO SCH ×3 (06:48→18:31)
[2020-06-13] MEDS: amLODIPine 5 MG TAB PO SCH (09:41)
[2020-06-13] MEDS: LOSARTAN 50 MG TAB PO SCH (09:41)
[2020-06-13] MEDS: MECLIZINE 12.5 MG TAB PO SCH (09:41)
[2020-06-13] MEDS: SENNOSIDES-DOCUSATE SODIUM 1 EACH TAB PO SCH (09:41)
[2020-06-13] MEDS: FUROSEMIDE 20 MG TAB PO SCH (09:41)
[2020-06-13] MEDS: APIXABAN 5 MG TAB PO SCH ×2 (09:42→20:42)
[2020-06-13] MEDS: POTASSIUM CHLORIDE ER 10 MEQ TAB.ER.PRT PO SCH (09:42)
--- NOTE | 2020-06-13 11:02 | P.PN ---
Subjective Progress Note Date: 06/13/20 HISTORY OF PRESENT ILLNESS: Patient examined this morning at the bedside. He is eating breakfast. He denies chest pain or pressure. Denies shortness of breath. Patient did have an episode of pre-syncope yesterday walking back from the bathroom. Repeat orthostatics performed today remain positive. Blood pressure supine 154/79. Blood pressure sitting 116/69. Blood pressure standing 76/50. Patient's heart rate 100-120 this morning. EKG completed overnight revealing atrial fibrillation. Echocardiogram completed revealed ejection fraction 50-55%. Patient was seen by Dr. Bojorquez in 2013 and per his office note the patient did have a history of atrial fibrillation at that time but was not treated with anticoagulation. PHYSICAL EXAM: VITAL SIGNS: Reviewed. GENERAL: Well-developed in no acute distress. NECK: Supple. No JVD or thyromegaly LUNGS: Respirations even and unlabored. Lungs essentially clear to auscultation bilaterally. HEART: Tachycardic. Irregular rate and rhythm. S1 and S2 heard. EXTREMITIES: Normal range of motion. No clubbing or cyanosis. Peripheral pulses intact. No lower extremity edema ASSESSMENT: Syncope Paroxysmal atrial fibrillation, on anticoagulation with Eliquis Orthostatic hypotension PLAN: Continue telemetry monitoring Discontinue Norvasc Increase Midodrine to 5 mg 3 times a day Add Toprol XL 25mg daily Recommend monitoring patient for another 24 hours Further recommendations pending patient course Nurse practitioner note has been reviewed by physician. Signing provider agrees with the documented findings, assessment, and plan of care. Objective - Vital Signs Vital signs: Vital Signs Temp 97.6 F 06/13/20 07:38 Pulse 130 H 06/13/20 09:09 Resp 14 06/13/20 07:38 BP 118/72 06/13/20 07:53 Pulse Ox 98 06/13/20 07:38 Intake & Output 06/12/20 06/13/20 06/13/20 18:59 06:59 18:59 Intake Total 0 Balance 0 Intake: Oral 0 Other: Voiding Method Toilet # Voids 1 1 - Labs CBC & Chem 7: 06/11/20 09:17 06/11/20 09:17
[2020-06-13] MEDS: ACETAMINOPHEN TAB 325 MG TAB PO PRN (11:35)
[2020-06-13] MEDS: METOPROLOL SUCCINATE (ER) 25 MG TAB.ER.24H PO SCH (11:35)
--- NOTE | 2020-06-13 14:43 | P.PN ---
Subjective Progress Note Date: 06/13/20 This is a 75-year-old male patient of Dr. Oglesby with past medical history of non-small cell lung cancer diagnosed in 2009 status post lobectomy, remote history of tobacco use, remote history of alcohol abuse, alcoholic peripheral neuropathy, hypertension, coronary artery disease, history of SVT/ atrial tachycardia, hypothyroidism. Patient was just seen in the office yesterday and did not have any new symptoms at the time. Patient was sent this morning was standing to take his medications and felt some lightheadedness and an end up passing out. Patient thinks that he was out for about 5 minutes. His neighbor in the apartment below him heard the fall and EMS was contacted. Patient believes he hit his head and his right shoulder. Patient was then brought into emergency center for evaluation. Patient was found to be afebrile, heart rate 131, blood pressure 138/90, pulse ox 97%. Patient was treated for atrial fibrillation started on Cardizem drip. WBC 13.5, hemoglobin 14.6, platelet count 101. D-dimer 1.64. Blood sugar 112. Electrolytes normal. BUN 21 creatinine 0.97. Liver function tests normal. Troponin 0.019. Digoxin 0.6. Urinalysis negative. CT chest angiogram negative for definite chronic pleural fluid on the left. Correlate for elevated left heart pressures given left atrial dilatation and possible pulmonary artery hypertension. Incidental aberrant right subclavian artery. Moderate size hiatal hernia pulmonary embolism. CAT scan of the brain and cervical spine revealed no acute fracture dislocation the cervical spine. Severe multilevel degenerative disc disease and hypertrophic spurring with multilevel foraminal encroachment and canal stenosis suspected. Degenerative change with no acute hemorrhage or mass effect. Suspected post pneumonectomy changes on the left with aberrant right subclavian artery. Increased soft tissue attenuation involving the left external auditory canal. Chest x-ray revealed left pneumonectomy changes. EKG tachycardia. Patient to be admitted to the hospital and cardiology consult. Right shoulder x-rays, echocardiogram and carotid US ordered. 06/12: Carotid ultrasound revealed moderate 50-69% left internal carotid artery stenosis. Right shoulder x-ray showed no acute osseous abnormality. Chronic changes with osteoarthritis and possible chronic rotator cuff tear. Echocardiogram has been completed but report is not able to be open to be reviewed. Patient has been seen by cardiology. His heart rate has been in the low 40s and 50s with first-degree AV block with pauses up to 2 seconds. Orthostatic vital signs were positive. Cardiology has evaluated and started on eliquis for A. fib and patient is being monitored for tachybradycardia syndrome. Midodrine was started for orthostatic hypotension. Lopressor and digoxin discontinued. Patient denies any lightheadedness or dizziness. He is complaining of constipation for which Senokot and oak of Magnesia added. Antic ipate monitoring overnight and possible discharge tomorrow. 06/13: Patient had an EKG done approximately 1 AM that revealed all morning atrial fibrillation and he has been in atrial fibrillation. Heart rate has been running up to 130 bpm. Orthostatics were significantly positive with systolic supine of 154 and standing 76. Cardiology has made the following changes today by increasing midodrine 5 mg 3 times daily, added Toprol-XL 25 mg daily. Amlodipine and Lasix were discontinued. Echocardiogram reveals EF of 50-55% with severe concentric left ventricular hypertrophy. Plan is to monitor patient overnight, discharge home most likely tomorrow. Objective - Vital Signs Vital signs: Vital Signs Temp 97.6 F 06/13/20 07:38 Pulse 130 H 06/13/20 09:09 Resp 14 06/13/20 07:38 BP 118/72 06/13/20 07:53 Pulse Ox 98 06/13/20 07:38 Intake & Output 06/12/20 06/13/20 06/13/20 18:59 06:59 18:59 Intake Total 0 Balance 0 Intake: Oral 0 Other: Voiding Method Toilet # Voids 1 1 - Exam Review of Systems Constitutional: Denies anorexia, Denies chills, Denies daytime sleepiness, Denies fatigue, Denies fever, Denies lethargy, Denies malaise, Denies poor appetite, Denies weakness, Denies weight loss Eyes: denies blurred vision, denies pain Ears, nose, mouth and throat: Reports vertigo, Denies dysphagia, Denies headache, Denies nasal congestion, Denies nasal discharge, Denies sore throat Cardiovascular: Denies lightheadedness, Reports syncope, Denies decreased exercise tolerance, Denies dyspnea on exertion, Denies edema, Denies leg edema, Denies palpitations, Denies rapid heart beat, Denies shortness of breath Respiratory: Denies cough, Denies cough with sputum, Denies dyspnea, Denies excessive sputum, Denies hemoptysis, Denies home oxygen, Denies respiratory infections, Denies wheezing Gastrointestinal: Denies abdominal pain, Denies belching, Denies bloating, Denies BRBPR, Denies coffee ground emesis, Denies diarrhea, Denies hematemesis, Denies hematochezia, Denies loss of appetite, Denies nausea, Denies vomiting Genitourinary: Denies dysuria, Denies urinary retention Musculoskeletal: Denies frequent falls, Denies gait dysfunction, Denies muscle weakness, Denies myalgias Musculoskeletal: right: shoulder pain Integumentary: Denies pruritus, Denies rash, Denies wounds Neurological: Reports syncope, Reports vertigo, Denies aphasia, Denies change in mentation, Denies change in speech, Denies confusion, Denies gait dysfunction, Denies numbness, Denies weakness Psychiatric: Denies anxiety, Denies depression Endocrine: Denies fatigue, Denies weight change Physical Examination Gen: This is a 75-year-old male. He is resting on the edge of the bed and appears to be comfortable and in no acute distress. HEENT: Head is atraumatic, normocephalic. Pupils equal, round. Sclerae is anicteric. NECK: Supple. No JVD. No lymphadenopathy. No thyromegaly. LUNGS: Clear to auscultation. No wheezes or rhonchi. No intercostal retractions. HEART: Irregular rate and rhythm. No murmur. ABDOMEN: Soft. Bowel sounds are present. No masses. No tenderness. EXTREMITIES: No pedal edema. No calf tenderness. Dorsalis pedis +2 bilaterally. NEUROLOGICAL: Patient is awake, alert and oriented x3. Cranial nerves 2 through 12 are grossly intact. - Labs CBC & Chem 7: 06/11/20 09:17 06/11/20 09:17 Assessment and Plan Assessment: 1. Syncopal episode possibly related to orthostatic hypotension, tachybradycardia syndrome. Carotid ultrasound as above, echocardiogram as above, cardiology consult, cardiac monitoring. Patient started on midodrine and increase to 5 mg oral 3 times daily. 2. A. fib with RVR, paroxysmal atrial fibrillation. Consult with cardiology appreciated. Digoxin 125 g daily, Lopressor 50 mg twice daily are both discontinued due to bradycardia. Patient started on Toprol-XL 25 mg daily and eliquis 5 mg twice daily. 3. Hypertension. Continue losartan 100 mg daily. 4. History of non-small cell lung cancer diagnosed in 2009 status post lobectomy, stable. 5. Remote history of tobacco use and alcohol abuse. 6. Alcohol induced peripheral neuropathy. Continue Elavil 150 mg at bedtime. 7. Hypothyroidism. Continue levothyroxine 50 g daily. TSH 7.140. 8. Elevated d-dimer. Pulmonary embolism ruled out. 9. History of coronary artery disease, stable. No complaints of chest pain. 10. GI prophylaxis. Protonix. 11. DVT prophylaxis. Heparin subcu. CODE STATUS: Full code Discharge plan: Home in the next 24 hours Impression and plan of care have been directed as dictated by the signing physician. Jada Burr nurse practitioner acting as scribe for signing physician.
[2020-06-13 15:13] VITALS: RESP 16
[2020-06-13] MEDS: AMITRIPTYLINE HCL 50 MG TAB PO SCH (20:42)
[2020-06-13] MEDS: ATORVASTATIN 80 MG TAB PO SCH (20:42)
[2020-06-14] MEDS: ACETAMINOPHEN TAB 325 MG TAB PO PRN (00:29)
[2020-06-14 03:58] LABS: HCT 41.6 % (39.0-53.0); HGB 13.9 gm/dL (13.0-17.5); MCH 29.9 pg (25.0-35.0); MCHC 33.5 g/dL (31.0-37.0); MCV 89.3 fL (80.0-100.0); Mean Platelet Volume 9.9; Platelet Count 105 k/uL (150-450); RBC 4.65 m/uL (4.30-5.90); RDW 14.3 % (11.5-15.5); WBC 13.9 k/uL (3.8-10.6)
[2020-06-14 04:12] LABS: Albumin 3.6 g/dL (3.5-5.0); Calcium 8.6 mg/dL (8.4-10.2); Potassium 4.5 mmol/L (3.5-5.1); Total Bilirubin 0.8 mg/dL (0.2-1.3); Total Protein 6.2 g/dL (6.3-8.2)
[2020-06-14] MEDS: LEVOTHYROXINE 50 MCG TAB PO SCH (06:36)
[2020-06-14] MEDS: MIDODRINE 5 MG TAB PO SCH (06:36)
[2020-06-14 08:07] VITALS: BP 119/66; PULSE 96; TEMP 98.1
[2020-06-14] MEDS: MECLIZINE 12.5 MG TAB PO SCH (08:40)
[2020-06-14] MEDS: SENNOSIDES-DOCUSATE SODIUM 1 EACH TAB PO SCH (08:40)
[2020-06-14] MEDS: POTASSIUM CHLORIDE ER 10 MEQ TAB.ER.PRT PO SCH (08:40)
[2020-06-14] MEDS: METOPROLOL SUCCINATE (ER) 25 MG TAB.ER.24H PO SCH (08:40)
[2020-06-14] MEDS: APIXABAN 5 MG TAB PO SCH (08:40)
[2020-06-14] MEDS ORDERED: LOSARTAN 50 MG TAB PO SCH (09:00)
--- NOTE | 2020-06-14 09:43 | P.PN ---
Subjective Progress Note Date: 06/14/20 HISTORY OF PRESENT ILLNESS: 06/13/2020 Patient examined this morning at the bedside. He is eating breakfast. He denies chest pain or pressure. Denies shortness of breath. Patient did have an episode of pre-syncope yesterday walking back from the bathroom. Repeat orthostatics performed today remain positive. Blood pressure supine 154/79. Blood pressure sitting 116/69. Blood pressure standing 76/50. Patient's heart rate 100-120 this morning. EKG completed overnight revealing atrial fibrillation. Echocardiogram completed revealed ejection fraction 50-55%. Patient was seen by Dr. Bojorquez in 2013 and per his office note the patient did have a history of atrial fibrillation at that time but was not treated with anticoagulation. 06/14/2020 Patient examined this morning at the bedside. Patient denies chest pain or pressure. Denies shortness of breath. He denies any further episodes of feeling dizzy or lightheaded. Orthostatic blood pressures this morning remain positive but are improved from yesterday morning. PHYSICAL EXAM: VITAL SIGNS: Reviewed. GENERAL: Well-developed in no acute distress. NECK: Supple. No JVD or thyromegaly LUNGS: Respirations even and unlabored. Lungs essentially clear to auscultation bilaterally. HEART: Regular rate and rhythm. S1 and S2 heard. EXTREMITIES: Normal range of motion. No clubbing or cyanosis. Peripheral pulses intact. No lower extremity edema ASSESSMENT: Syncope Paroxysmal atrial fibrillation, on anticoagulation with Eliquis Orthostatic hypotension PLAN: Continue telemetry monitoring Decrease Cozaar to 50 mg daily Patient may be discharged home today from a cardiac standpoint. He is to follow up outpatient. Nurse practitioner note has been reviewed by physician. Signing provider agrees with the documented findings, assessment, and plan of care. Objective - Vital Signs Vital signs: Vital Signs Temp 98.1 F 06/14/20 08:06 Pulse 96 06/14/20 08:06 Resp 16 06/14/20 08:06 BP 119/66 06/14/20 08:06 Pulse Ox 96 06/14/20 08:06 Intake & Output 06/13/20 06/14/20 06/14/20 18:59 06:59 18:59 Output Total 700 Balance -700 Output: Urine 700 Other: Voiding Method Toilet Toilet Toilet # Voids 1 1 - Labs CBC & Chem 7: 06/14/20 03:20 06/14/20 03:20 Labs: Abnormal Lab Results - Last 24 Hours (Table) 06/14/20 06/14/20 Range/Units 03:20 03:20 WBC 13.9 H (3.8-10.6) k/uL Plt Count 105 L (150-450) k/uL BUN 26 H (9-20) mg/dL Glucose 103 H (74-99) mg/dL Total Protein 6.2 L (6.3-8.2) g/dL
--- NOTE | 2020-06-14 11:27 | P.DS ---
Providers Date of admission: 06/11/20 13:06 Expected date of discharge: 06/14/20 Attending physician: Nat Oglesby Consults: 06/11/20 11:56 Consult Physician Urgent Consulting Provider: Nate Barroso Consult Reason/Comments: afib Do you want consulting provider notified?: Yes Primary care physician: Nat Oglesby [facility] Course: This is a 75-year-old male patient of Dr. Oglesby with past medical history of non-small cell lung cancer diagnosed in 2009 status post lobectomy, remote history of tobacco use, remote history of alcohol abuse, alcoholic peripheral neuropathy, hypertension, coronary artery disease, history of SVT/atrial tachycardia, hypothyroidism. Patient was just seen in the office yesterday and did not have any new symptoms at the time. Patient was sent this morning was standing to take his medications and felt some lightheadedness and an end up passing out. Patient thinks that he was out for about 5 minutes. His neighbor in the apartment below him heard the fall and EMS was contacted. Patient believes he hit his head and his right shoulder. Patient was then brought into [facility] emergency center for evaluation. Patient was found to be afebrile, heart rate 131, blood pressure 138/90, pulse ox 97%. Patient was treated for atrial fibrillation started on Cardizem drip. WBC 13.5, hemoglobin 14.6, platelet count 101. D-dimer 1.64. Blood sugar 112. Electrolytes normal. BUN 21 creatinine 0.97. Liver function tests normal. Troponin 0.019. Digoxin 0.6. Urinalysis negative. CT chest angiogram negative for definite chronic pleural fluid on the left. Correlate for elevated left heart pressures given left atrial dilatation and possible pulmonary artery hypertension. Incidental aberrant right subclavian artery. Moderate size hiatal hernia pulmonary embolism. CAT scan of the brain and cervical spine revealed no acute fracture dislocation the cervical spine. Severe multilevel degenerative disc disease and hypertrophic spurring with multilevel foraminal encroachment and canal stenosis suspected. Degenerative change with no acute hemorrhage or mass effect. Suspected post pneumonectomy changes on the left with aberrant right subclavian artery. Increased soft tissue attenuation involving the left external auditory canal. Chest x-ray revealed left pneumonectomy changes. EKG tachycardia. Patient to be admitted to the hospital and cardiology consult. Right shoulder x-rays, echocardiogram and carotid US ordered. 06/12: Carotid ultrasound revealed moderate 50-69% left internal carotid artery stenosis. Right shoulder x-ray showed no acute osseous abnormality. Chronic changes with osteoarthritis and possible chronic rotator cuff tear. Echocardiogram has been completed but report is not able to be open to be reviewed. Patient has been seen by cardiology. His heart rate has been in the low 40s and 50s with first-degree AV block with pauses up to 2 seconds. Orthostatic vital signs were positive. Cardiology has evaluated and started on eliquis for A. fib and patient is being monitored for tachybradycardia syndrome. Midodrine was started for orthostatic hypotension. Lopressor and digoxin discontinued. Patient denies any lightheadedness or dizziness. He is complaining of constipation for which Senrayot and gino of Magnesia added. Anticipate monitoring overnight and possible discharge tomorrow. 06/13: Patient had an EKG done approximately 1 AM that revealed all morning atrial fibrillation and he has been in atrial fibrillation. Heart rate has been running up to 130 bpm. Orthostatics were significantly positive with systolic supine of 154 and standing 76. Cardiology has made the following changes today by increasing midodrine 5 mg 3 times daily, added Toprol-XL 25 mg daily. Amlodipine and Lasix were discontinued. Echocardiogram reveals EF of 50-55% with severe concentric left ventricular hypertrophy. Plan is to monitor patient overnight, discharge home most likely tomorrow. 06/14: Patient denies any new complaints and is anxious to be discharged home. He denies having any chest pain, lightheadedness or dizziness. He has been afebrile, heart rate 78, blood pressure 129/71, pulse ox 98% on room air. Orthostatic changes are less significant today. Blood pressure 129/71 supine and 97/60 standing. Cardiology has decreased losartan 50 mg daily. He has been cleared for discharge home and patient will be discharged home today in stable condition. Discharge Diagnoses: 1. Syncopal episode possibly related to orthostatic hypotension, tachybradycardia syndrome. 2. A. fib with RVR, paroxysmal atrial fibrillation. 3. Hypertension. 4. History of non-small cell lung cancer diagnosed in 2009 status post lobectomy, stable. 5. Remote history of tobacco use and alcohol abuse. 6. Alcohol induced peripheral neuropathy. 7. Hypothyroidism. 8. Elevated d-dimer. Pulmonary embolism ruled out. 9. History of coronary artery disease, stable. Discharge plan: Home Impression and plan of care have been directed as dictated by the signing physician. Jada Burr nurse practitioner acting as scribe for signing physician. Patient Condition at Discharge: Good Plan - Discharge Summary Discharge Rx Participant: No New Discharge Prescriptions: New Apixaban [Eliquis] 5 mg PO BID #60 tab Losartan [Cozaar] 50 mg PO DAILY #30 tab Midodrine [ProAmatine] 5 mg PO AC-TID #90 tab Metoprolol Succinate (ER) [Toprol XL] 25 mg PO DAILY #30 tab.er.24h Continue Atorvastatin [Lipitor] 80 mg PO HS Potassium Chloride ER [K-Dur 10] 10 meq PO DAILY Meclizine [Antivert] 12.5 mg PO DAILY Levothyroxine Sodium [Synthroid] 50 mcg PO DAILY Furosemide [Lasix] 20 mg PO DAILY Amitriptyline HCl [Elavil] 150 mg PO HS Discontinued Metoprolol Tartrate [Lopressor] 50 mg PO BID Losartan Potassium 100 mg PO DAILY Digoxin [Lanoxin] 125 mcg PO DAILY Discharge Medication List Amitriptyline HCl [Elavil] 150 mg PO HS 06/11/20 [History] Atorvastatin [Lipitor] 80 mg PO HS 06/11/20 [History] Furosemide [Lasix] 20 mg PO DAILY 06/11/20 [History] Levothyroxine Sodium [Synthroid] 50 mcg PO DAILY 06/11/20 [History] Meclizine [Antivert] 12.5 mg PO DAILY 06/11/20 [History] Potassium Chloride ER [K-Dur 10] 10 meq PO DAILY 06/11/20 [History] Apixaban [Eliquis] 5 mg PO BID #60 tab 06/12/20 [Rx] Losartan [Cozaar] 50 mg PO DAILY #30 tab 06/14/20 [Rx] Metoprolol Succinate (ER) [Toprol XL] 25 mg PO DAILY #30 tab.er.24h 06/14/20 [Rx] Midodrine [ProAmatine] 5 mg PO AC-TID #90 tab 06/14/20 [Rx] Follow up Appointment(s)/Referral(s): Nat Oglesby MD [Primary Care Provider] - 1-2 days Sae Pinon MD [STAFF PHYSICIAN] - 06/19/20 (please make appt for patient) Patient Instructions/Handouts: A-fib (Atrial Fibrillation) (DC), Syncope (DC) Activity/Diet/Wound Care/Special Instructions: pt has a co-pay for eliquist of $142.00, i called the pt and he stated that he c an afford that cost, pt to worm picker the med from [facility] at discharge.
[2020-07-16] MEDS ORDERED: ceFAZolin 1 GM in SODIUM CHLORIDE 0.9% 250 ML IRRIGATION PRN (10:15)
[2020-07-16] MEDS ORDERED: SODIUM CHLORIDE 0.9% 1,000 ML IV SCH ×2 (10:15)
== END 2020-06-14 12:33 | disposition home or self-care (01) | DRG 312 ==
LOC: EC 08:57 → 1SOBS 11:51 → OBSVTOIN 13:06 → 1SOBS 13:54
PROVIDERS: ADMIT Internal Medicine; ATTEND Internal Medicine
DX: I95.1 Orthostatic hypotension (principal); I47.1 Supraventricular tachycardia; I49.5 Sick sinus syndrome; G62.1 Alcoholic polyneuropathy; I11.9 Hypertensive heart disease without heart failure; E03.9 Hypothyroidism, unspecified; I48.0 Paroxysmal atrial fibrillation; K44.9 Diaphragmatic hernia without obstruction or gangrene; M50.30 Other cervical disc degeneration, unspecified cervical region; M48.02 Spinal stenosis, cervical region; M19.011 Primary osteoarthritis, right shoulder; I44.0 Atrioventricular block, first degree; I65.22 Occlusion and stenosis of left carotid artery; H53.8 Other visual disturbances; F10.11 Alcohol abuse, in remission; K59.00 Constipation, unspecified; I25.10 Atherosclerotic heart disease of native coronary artery without angina pectoris; Z79.890 Hormone replacement therapy; Z79.899 Other long term (current) drug therapy; Z87.891 Personal history of nicotine dependence; Z87.19 Personal history of other diseases of the digestive system; Z90.2 Acquired absence of lung [part of]; Z98.890 Other specified postprocedural states; Z82.49 Family history of ischemic heart disease and other diseases of the circulatory system; Z80.0 Family history of malignant neoplasm of digestive organs; Z83.49 Family history of other endocrine, nutritional and metabolic diseases; Z85.118 Personal history of other malignant neoplasm of bronchus and lung
CPT/HCPCS: 36415; 70450; 71046; 71275; 72125; 80053; 80061; 80162; 81003; 83735; 84153; 84439; 84443; 84484; 85025; 85027; 85379; 85610; 85730; 93005; 93306; 93880; 94760; 96365; 99291

== ENCOUNTER 2020-07-16 11:32 | Day surgery (SDC) | payer MEDICARE ==
[~2020-07-16 11:32] MED LIST: ceFAZolin 1 GM in SODIUM CHLORIDE 0.9% 250 ML IRRIGATION PRN
[2020-07-16] MEDS: SODIUM CHLORIDE 0.9% 1,000 ML IV SCH ×2 (12:14→17:41)
[2020-07-16 12:31] LABS: Basophils # (A) 0.2 k/uL (0-0.2); Basophils % (A) 1 %; Eosinophils # (A) 0.1 k/uL (0-0.7); Eosinophils % (A) 1 %; HCT 44.4 % (39.0-53.0); HGB 14.1 gm/dL (13.0-17.5); Lymphocytes # (A) 3.2 k/uL (1.0-4.8); Lymphocytes % (A) 19 %; MCH 28.4 pg (25.0-35.0); MCHC 31.8 g/dL (31.0-37.0); MCV 89.5 fL (80.0-100.0); Mean Platelet Volume 9.4; Monocytes # (A) 2.9 k/uL (0-1.0); Monocytes % (A) 17 %; Neutrophils % (A) 60 %; RBC 4.96 m/uL (4.30-5.90); RDW 14.8 % (11.5-15.5); WBC 16.8 k/uL (3.8-10.6)
[2020-07-16 12:52] LABS: Platelet Count 198 k/uL (150-450)
[2020-07-16 13:09] LABS: INR 1.2 (<1.2); Prothrombin Time 12.2 sec (9.0-12.0)
[2020-07-16] MEDS ORDERED: fentaNYL (PF) 50 MCG/ML 2 ML AMP ONE (13:54)
[2020-07-16] MEDS ORDERED: LIDOCAINE 1% INJ 10MG/ML (20 ML MDV) ONE ×2 (13:54)
[2020-07-16] MEDS ORDERED: IOPAMIDOL-250 50ML BTL IV ONE (14:05)
[2020-07-16] MEDS ORDERED: MIDAZOLAM 2 MG/2 ML VIAL IV ONE (14:16)
[2020-07-16] MEDS: fentaNYL (PF) 50 MCG/ML 2 ML AMP IV ONE ×2 (14:16→15:17)
[2020-07-16] MEDS ORDERED: LIDOCAINE 1% INJ 10MG/ML (20 ML MDV) SQ ONE ×2 (14:28→15:19)
[2020-07-16] MEDS ORDERED: ACETAMINOPHEN TAB 325 MG TAB PO PRN (16:29)
[2020-07-16] MEDS ORDERED: HYDROcodone/APAP 5-325MG 1 EACH TAB PO PRN (16:29)
[2020-07-16] MEDS ORDERED: ACETAMINOPHEN IV (For NPO) 1,000 MG in EMPTY BAG 1 BAG IVPB ONE (17:00)
--- NOTE | 2020-07-16 17:05 | P.PCN ---
Preoperative Diagnosis: Left upper extremity venogram 15 mL of IV dye injected in the left arm line patent subclavian and axillary venous system Plan Proceed with a biventricular pacemaker implantation
[2020-07-16] MEDS: MIDODRINE 5 MG TAB PO SCH (17:43)
--- NOTE | 2020-07-16 17:45 | CE ---
CARDIAC ELECTROPHYSIOLOGY REPORT Mr. Boone is a 75-year-old male patient who has syncope with sick sinus syndrome, paroxysmal atrial fibrillation and significant AV node disease, and at baseline his DC interval is greater than 300 milliseconds. A pacemaker was recommended by Dr. Pinon after he performed an event monitor which showed long pauses and paroxysmal atrial fibrillation (tachy-arabella syndrome). The patient was brought to the EP lab in a fasting state. Written informed consent was obtained prior to the procedure. A biventricular pacemaker was recommended on account of significant AV node disease which resulted in virtually 100% RV pacing with standard dual-chamber pacing. The left pectoral area was prepped and draped as per protocol. Lidocaine 1% was used for local anesthesia. A 4 cm incision was made parallel to the deltopectoral groove, about 1.5 cm medial to it. The incision was carried down to the level of the pectoralis muscle. A subfascial pocket was made. Hemostasis was assured. The left axillary vein was accessed at 3 separate points. Axillary vein access was difficult, but we were able to obtain 3 axillary vein accesses, and a guidewire was then placed in the central circulation. Placing the guidewire beyond the subclavian vein and passing it into the innominate vein was extremely difficult and challenging; and despite using an angioplasty wire, given the tortuosity of the veins, it took a long time to get 3 wires from the subclavian vein into the innominate vein and then down into the right atrium. However, in the end we were successful in placing the wires down into the IVC. The first lead placed was an RV lead. This was model #4074, 58 cm in length, Pacer lead, model #[id number]. This was positioned in the RV apex. Pacing threshold was 0.4 V at 0.5 milliseconds, pacing impedance of 997 ohms. R-waves 30 mV. Ten-volt test was negative. The next lead was a His bundle lead for physiologic septal pacing, model #3830, 69 cm length, and serial #[id number]. Mapping of the His bundle was performed and we were able to screw in the lead in a position where nonselective capture followed by selective capture was noted. Selective capture was noted at 2.9 V at 1 millisecond with complete loss of capture at 1.1 V at 1 millisecond. Following that, the right atrial lead was placed. Again this was a fairly challenging lead placement. The first Pacer lead was placed in the right atrial appendage. However, later we switched this to a screw-in lead, [employer] model #5076, 52 cm length, and serial #[id number]. This was screwed in the right atrial appendage. P- waves were 2.4 millivolts, pacing impedance 584 ohms, pacing threshold 0.5 V at 0.5 milliseconds. Ten-volt test was negative. The patient has had lung surgery resulting in a shift in the midline and the cardiac structures leftwards. This resulted in difficulty in lead placement because of the anatomical variation. However, all leads were successfully placed, secured to the pectoralis muscle and then connected to the generator (Adina CRTP model #W1TR02, serial #[id number]). The lead and the generator were then placed in the subfascial pocket and the wound was closed in 3 layers and dressed per protocol. RESULT: Successful biventricular pacemaker implantation for a gentleman with syncope and sick sinus syndrome with long pauses, significant AV node disease with anticipated RV pacing percentage of greater than 40% and paroxysmal atrial fibrillation. The device was then programmed to DDDR mode, 60 to 130 beats per minute, with physiologic septal pacing. PLAN: Metoprolol 50 mg p.o. daily to start. Continue Coumadin. Continue all other medications. Follow up with Dr. Pinon in a week. MMCHANELLL / EZRAN: [id number] /
[2020-07-16] MEDS ORDERED: WARFARIN 7.5 MG TAB PO ONE (18:00)
--- NOTE | 2020-07-16 20:46 | XR ---
EXAMINATION TYPE: XR chest 1V portable DATE OF EXAM: 07/16/2020 COMPARISON: 06/11/2020. HISTORY: Status post pacemaker. History of left pneumonectomy. TECHNIQUE: Single frontal view of the chest is obtained. FINDINGS: There is interval placement of left triple lead pacemaker. No pneumothorax. Stable prior l eft pneumonectomy. The right lung is clear. No pleural effusion. The cardiac mediastinal silhouette is stable. The osseous structures are intact. IMPRESSION: Status post left pacemaker without acute abnormality.
[2020-07-16] MEDS ORDERED: ATORVASTATIN 80 MG TAB PO SCH (21:00)
[2020-07-16] MEDS ORDERED: AMITRIPTYLINE HCL 50 MG TAB PO SCH (21:00)
[2020-07-17] MEDS ORDERED: LEVOTHYROXINE 50 MCG TAB PO SCH (06:30)
[2020-07-17] MEDS: MIDODRINE 5 MG TAB PO SCH ×2 (07:43→12:52)
[2020-07-17] MEDS: SODIUM CHLORIDE 0.9% 1,000 ML IV SCH ×2 (07:44)
[2020-07-17 07:49] VITALS: BP 153/74; PULSE 71; RESP 17; TEMP 97.5
[2020-07-17 08:57] LABS: INR 1.66 (0.90-1.11); Prothrombin Time 17.5 sec (9.9-11.9)
[2020-07-17] MEDS ORDERED: METOPROLOL SUCCINATE (ER) 50 MG TAB.ER.24H PO SCH (09:00)
[2020-07-17] MEDS ORDERED: FUROSEMIDE 20 MG TAB PO SCH (09:00)
[2020-07-17] MEDS ORDERED: POTASSIUM CHLORIDE ER 10 MEQ TAB.ER.PRT PO SCH (09:00)
[2020-07-17] MEDS ORDERED: LOSARTAN 50 MG TAB PO SCH (09:00)
[2020-07-17] MEDS ORDERED: WARFARIN 5 MG TAB PO SCH (09:00)
[2020-07-17] MEDS ORDERED: WARFARIN 7.5 MG TAB PO ONE (18:00)
== END 2020-07-17 14:05 | disposition home or self-care (01) ==
LOC: CATHEP 11:32 → 6NMEDSUR 16:18 → CATHEP 07-17 14:05
PROVIDERS: ATTEND Internal Medicine Clinical Cardiac Electrophysiology
DX: I48.0 Paroxysmal atrial fibrillation (principal); I49.5 Sick sinus syndrome; I10 Essential (primary) hypertension; E78.2 Mixed hyperlipidemia; E11.9 Type 2 diabetes mellitus without complications; F17.210 Nicotine dependence, cigarettes, uncomplicated; I86.8 Varicose veins of other specified sites; R94.39 Abnormal result of other cardiovascular function study; Z79.84 Long term (current) use of oral hypoglycemic drugs; Z79.82 Long term (current) use of aspirin; Z79.899 Other long term (current) drug therapy; Z88.6 Allergy status to analgesic agent; Z88.0 Allergy status to penicillin; Z88.8 Allergy status to other drugs, medicaments and biological substances; Z88.1 Allergy status to other antibiotic agents
CPT/HCPCS: 33225; 33208; 85025; 85610 ×2; 71045; C1769 ×3; C1892; C1898 ×2; C2621; J2250; J0690 ×2; J2001; J3010; J0131; Q9966

== ENCOUNTER 2020-12-23 09:59 | Inpatient (IN) | payer MEDICARE ==
--- NOTE | 2020-12-23 10:21 | ED ---
General Adult HPI - General Chief complaint: Shortness of Breath Stated complaint: SOB Time Seen by Provider: 12/23/20 10:11 Source: patient, family, RN notes reviewed Mode of arrival: wheelchair Limitations: no limitations - History of Present Illness Initial comments: Patient is a pleasant 75 year old male presenting to the emergency Department with complaints of dyspnea. Onset of symptoms was around a week ago. Symptoms do worsen with exertion. No significant cough. No chest pain. Patient does have a history of previous lung cancer with lung resection. No leg pain or leg swelling. Patient also complains of right inguinal discomfort. - Related Data Home Medications Medication Instructions Recorded Confirmed Amitriptyline HCl [Elavil] 50 mg PO HS 06/11/20 12/23/20 Atorvastatin [Lipitor] 80 mg PO HS 06/11/20 12/23/20 Furosemide [Lasix] 20 mg PO DAILY PRN 06/11/20 12/23/20 Levothyroxine Sodium [Synthroid] 50 mcg PO DAILY 06/11/20 12/23/20 Meclizine [Antivert] 12.5 mg PO DAILY 06/11/20 12/23/20 Potassium Chloride ER [K-Dur 10] 10 meq PO DAILY PRN 06/11/20 12/23/20 Warfarin [Coumadin] 5 mg PO SUTH@2100 07/16/20 12/23/20 Hydrocortisone Cream 1 applic TOPICAL BID PRN 12/23/20 12/23/20 [Hydrocortisone 2.5% Cream] Magnesium Oxide 400 mg PO DAILY@1300 12/23/20 12/23/20 Metoprolol Succinate (ER) [Toprol 100 mg PO DAILY 12/23/20 12/23/20 Xl] Warfarin [Coumadin] 2.5 mg PO MOTUWEFRSA@2100 12/23/20 12/23/20 Previous Rx's Medication Instructions Recorded Losartan [Cozaar] 50 mg PO DAILY #30 tab 06/14/20 Allergies Allergy/AdvReac Type Severity Reaction Status Date / Time No Known Allergies Allergy Verified 12/23/20 10:09 Review of Systems ROS Statement: Those systems with pertinent positive or pertinent negative responses have been documented in the HPI. ROS Other: All systems not noted in ROS Statement are negative. Constitutional: Denies: fever Eyes: Denies: eye pain ENT: Denies: ear pain Respiratory: Reports: dyspnea. Denies: cough Cardiovascular: Denies: chest pain Endocrine: Denies: fatigue Gastrointestinal: Denies: abdominal pain Genitourinary: Denies: dysuria Musculoskeletal: Denies: back pain Skin: Denies: rash Neurological: Denies: weakness Past Medical History Past Medical History: Coronary Artery Disease (CAD), Hypertension, Thyroid Disorder Additional Past Medical History / Comment(s): vertigo History of Any Multi-Drug Resistant Organisms: None Reported Past Surgical History: Hernia Repair, Pacemaker Additional Past Surgical History / Comment(s): Left lung removed Past Anesthesia/Blood Transfusion Reactions: No Reported Reaction Past Psychological History: No Psychological Hx Reported Smoking Status: Never smoker Past Alcohol Use History: None Reported Past Drug Use History: None Reported - Past Family History Father Additional Family Medical History / Comment(s): Father at age 71 from a myocardial infarction. Mother Additional Family Medical History / Comment(s): Mother at age 92 from old age. Brother(s) Additional Family Medical History / Comment(s): Patient has 3 brothers alive with no major medical problems. One brother is dying from stomach cancer. Sister(s) Additional Family Medical History / Comment(s): Patient has one sister and she is alive. History of hypertension and hyperlipidemia. General Exam Limitations: no limitations General appearance: alert, in no apparent distress Head exam: Present: normocephalic Eye exam: Present: normal appearance Neck exam: Present: normal inspection Respiratory exam: Present: decreased breath sounds (More so on the left) Cardiovascular Exam: Present: tachycardia GI/Abdominal exam: Present: soft, hernia (Reducible right inguinal hernia that is the area of the patient's discomfort). Absent: tenderness Extremities exam: Present: normal inspection. Absent: pedal edema, calf tenderness Neurological exam: Present: alert Psychiatric exam: Present: normal affect, normal mood Skin exam: Present: normal color Course Vital Signs 12/23/20 12/23/20 12/23/20 10:06 10:26 12:24 Temperature 98.2 F Pulse Rate 128 H 112 H Respiratory 18 18 Rate Blood Pressure 91/60 136/72 O2 Sat by Pulse 91 L 88 L 98 Oximetry - Reevaluation(s) Reevaluation #1: 12/23/20 12:29 A she needs criteria for severe sepsis diagnosed at 1220. Blood culture and lactic acid and IV antibiotics will be ordered. EKG Findings - EKG Comments: EKG Findings:: Sinus tachycardia 122. TN 160. QRS 100. QT 316. QTC 450. Right axis. Septal Q waves. Paced rhythm. ST depression leads 3 and aVF. Medical Decision Making - Medical Decision Making Patient reevaluated and updated. Case discussed with Dr. Oglesby who will admit his patient with pulmonary consult. - Lab Data Result diagrams: 12/23/20 10:38 12/23/20 10:38 Lab Results 12/23/20 12/23/20 12/23/20 Range/Units 10:15 10:38 10:38 WBC 21.2 H (3.8-10.6) k/uL RBC 4.16 L (4.30-5.90) m/uL Hgb 11.2 L (13.0-17.5) gm/dL Hct 33.5 L (39.0-53.0) % MCV 80.6 (80.0-100.0) fL MCH 27.0 (25.0-35.0) pg MCHC 33.5 (31.0-37.0) g/dL RDW 17.8 H (11.5-15.5) % Plt Count 229 (150-450) k/uL MPV 9.3 Neutrophils % (Manual) 79 % Lymphocytes % (Manual) 6 % Monocytes % (Manual) 16 % Neutrophils # (Manual) 16.75 H (1.3-7.7) k/uL Lymphocytes # (Manual) 1.27 (1.0-4.8) k/uL Monocytes # (Manual) 3.39 H (0-1.0) k/uL Nucleated RBCs 0 (0-0) /100 WBC Manual Slide Review Performed Anisocytosis Slight Microcytosis Slight PT 58.1 H (9.0-12.0) sec INR 6.0 H* (<1.2) APTT 48.9 H (22.0-30.0) sec D-Dimer 0.80 H (<0.60) mg/L FEU Sodium (137-145) mmol/L Potassium (3.5-5.1) mmol/L Chloride (98-107) mmol/L Carbon Dioxide (22-30) mmol/L Anion Gap mmol/L BUN (9-20) mg/dL Creatinine (0.66-1.25) mg/dL Est GFR (CKD-EPI)AfAm (>60 ml/min/1.73 sqM) Est GFR (CKD-EPI)NonAf (>60 ml/min/1.73 sqM) Glucose (74-99) mg/dL Plasma Lactic Acid Robert (0.7-2.0) mmol/L Calcium (8.4-10.2) mg/dL Total Bilirubin (0.2-1.3) mg/dL AST (17-59) U/L ALT (4-49) U/L Alkaline Phosphatase (38-126) U/L Troponin I (0.000-0.034) ng/mL NT-Pro-B Natriuret Pep pg/mL Total Protein (6.3-8.2) g/dL Albumin (3.5-5.0) g/dL Coronavirus (PCR) Not Detected (Not Detectd) 12/23/20 12/23/20 12/23/20 Range/Units 10:38 10:38 10:38 WBC (3.8-10.6) k/uL RBC (4.30-5.90) m/uL Hgb (13.0-17.5) gm/dL Hct (39.0-53.0) % MCV (80.0-100.0) fL MCH (25.0-35.0) pg MCHC (31.0-37.0) g/dL RDW (11.5-15.5) % Plt Count (150-450) k/uL MPV Neutrophils % (Manual) % Lymphocytes % (Manual) % Monocytes % (Manual) % Neutrophils # (Manual) (1.3-7.7) k/uL Lymphocytes # (Manual) (1.0-4.8) k/uL Monocytes # (Manual) (0-1.0) k/uL Nucleated RBCs (0-0) /100 WBC Manual Slide Review Anisocytosis Microcytosis PT (9.0-12.0) sec INR (<1.2) APTT (22.0-30.0) sec D-Dimer (<0.60) mg/L FEU Sodium 140 (137-145) mmol/L Potassium 4.6 (3.5-5.1) mmol/L Chloride 105 (98-107) mmol/L Carbon Dioxide 25 (22-30) mmol/L Anion Gap 10 mmol/L BUN 36 H (9-20) mg/dL Creatinine 1.25 (0.66-1.25) mg/dL Est GFR (CKD-EPI)AfAm 65 (>60 ml/min/1.73 sqM) Est GFR (CKD-EPI)NonAf 56 (>60 ml/min/1.73 sqM) Glucose 136 H (74-99) mg/dL Plasma Lactic Acid Robert 3.3 H* (0.7-2.0) mmol/L Calcium 8.6 (8.4-10.2) mg/dL Total Bilirubin 2.9 H (0.2-1.3) mg/dL AST 37 (17-59) U/L ALT 18 (4-49) U/L Alkaline Phosphatase 108 (38-126) U/L Troponin I 0.016 (0.000-0.034) ng/mL NT-Pro-B Natriuret Pep pg/mL Total Protein 6.3 (6.3-8.2) g/dL Albumin 3.8 (3.5-5.0) g/dL Coronavirus (PCR) (Not Detectd) 12/23/20 Range/Units 10:38 WBC (3.8-10.6) k/uL RBC (4.30-5.90) m/uL Hgb (13.0-17.5) gm/dL Hct (39.0-53.0) % MCV (80.0-100.0) fL MCH (25.0-35.0) pg MCHC (31.0-37.0) g/dL RDW (11.5-15.5) % Plt Count (150-450) k/uL MPV Neutrophils % (Manual) % Lymphocytes % (Manual) % Monocytes % (Manual) % Neutrophils # (Manual) (1.3-7.7) k/uL Lymphocytes # (Manual) (1.0-4.8) k/uL Monocytes # (Manual) (0-1.0) k/uL Nucleated RBCs (0-0) /100 WBC Manual Slide Review Anisocytosis Microcytosis PT (9.0-12.0) sec INR (<1.2) APTT (22.0-30.0) sec D-Dimer (<0.60) mg/L FEU Sodium (137-145) mmol/L Potassium (3.5-5.1) mmol/L Chloride (98-107) mmol/L Carbon Dioxide (22-30) mmol/L Anion Gap mmol/L BUN (9-20) mg/dL Creatinine (0.66-1.25) mg/dL Est GFR (CKD-EPI)AfAm (>60 ml/min/1.73 sqM) Est GFR (CKD-EPI)NonAf (>60 ml/min/1.73 sqM) Glucose (74-99) mg/dL Plasma Lactic Acid Robert (0.7-2.0) mmol/L Calcium (8.4-10.2) mg/dL Total Bilirubin (0.2-1.3) mg/dL AST (17-59) U/L ALT (4-49) U/L Alkaline Phosphatase (38-126) U/L Troponin I (0.000-0.034) ng/mL NT-Pro-B Natriuret Pep 1780 pg/mL Total Protein (6.3-8.2) g/dL Albumin (3.5-5.0) g/dL Coronavirus (PCR) (Not Detectd) - Radiology Data Radiology results: image reviewed (Chest x-ray shows previous left lung re section. Fluffy infiltrates on the right.) Critical Care Time Critical Care Time: Yes Total Critical Care Time: 33 Disposition Clinical Impression: Pneumonia, Severe sepsis Disposition: ADMITTED IP TO THIS [facility] Condition: Serious Is patient prescribed a controlled substance at d/c from ED?: No Referrals: Nat Oglesby MD [Primary Care Provider] - 1-2 days Decision Time: 12:30
[2020-12-23 10:51] LABS: Anisocytosis Slight; HCT 33.5 % (39.0-53.0); HGB 11.2 gm/dL (13.0-17.5); MCHC 33.5 g/dL (31.0-37.0); MCV 80.6 fL (80.0-100.0); Mean Platelet Volume 9.3; Microcytosis Slight; Platelet Count 229 k/uL (150-450); RBC 4.16 m/uL (4.30-5.90); RDW 17.8 % (11.5-15.5); WBC 21.2 k/uL (3.8-10.6)
[2020-12-23 11:03] LABS: Partial Thromboplastin Time 48.9 sec (22.0-30.0)
[2020-12-23 11:15] LABS: Albumin 3.8 g/dL (3.5-5.0); Calcium 8.6 mg/dL (8.4-10.2); Potassium 4.6 mmol/L (3.5-5.1); Total Bilirubin 2.9 mg/dL (0.2-1.3); Total Protein 6.3 g/dL (6.3-8.2)
[2020-12-23 11:24] LABS: Lymphocytes # (M) 1.27 k/uL (1.0-4.8); Monocytes # (M) 3.39 k/uL (0-1.0); Neutrophils # (M) 16.75 k/uL (1.3-7.7); Neutrophils % (M) 79 %; Nucleated Red Blood Cells 0 /100 WBC (0-0); Total Cells Counted 200
--- NOTE | 2020-12-23 11:26 | XR ---
EXAMINATION TYPE: XR chest 2V DATE OF EXAM: 12/23/2020 COMPARISON: 07/16/2020 HISTORY: Difficulty breathing TECHNIQUE: Frontal and lateral views of the chest are obtained. FINDINGS: There is new right-sided patchy airspace disease. Again seen is complete opacification of the left he mithorax status post pacer placement. IMPRESSION: There is new right-sided patchy airspace disease. Again seen is complete opacification of the left he mithorax status post pacer placement.
[2020-12-23 11:35] LABS: Prothrombin Time 58.1 sec (9.0-12.0)
[2020-12-23] MEDS ORDERED: PNEUMONIA PROTOCOL UTILIZED 1 EACH MISC PO PRN (12:30)
[2020-12-23] MEDS ORDERED: AZITHROMYCIN 500 MG in SODIUM CHLORIDE 0.9% 250 ML IVPB STA (12:30)
[2020-12-23] MEDS ORDERED: IPRATROPIUM-ALBUTEROL 3 ML NEB INHALATION PRN (12:30)
[2020-12-23] MEDS ORDERED: PIPERACILLIN-TAZOBACTAM 3.375 GM in SODIUM CHLORIDE 0.9% 100 ML IVPB STA (12:30)
[2020-12-23] MEDS: SODIUM CHLORIDE 0.9% 1,000 ML IV SCH ×2 (13:10→21:47)
--- NOTE | 2020-12-23 13:36 | P.CNPUL ---
History of Present Illness Consult date: 12/23/20 Requesting physician: Dwight Delgado Reason for consult: dyspnea, cough, hypoxemia, pneumonia Chief complaint: Cough, fever, shortness of breath History of present illness: This is a 75-year-old white male patient of Dr. Oglesby with past medical history of COPD, former smoker, non-small cell lung cancer diagnosed in 2008, status post left pneumonectomy, remote history of alcohol abuse, and alcoholic peripheral neuropathy, hypertension, CAD, paroxysmal A. fib and hypothyroidism. His left pneumonectomy was performed by Dr. Ho. He does not follow with a medical front desk specialist. Patient also recently had a permanent biventricular pacemaker inserted in July 2020 presenting with syncope and sick sinus syndrome, and this was done by Dr. Terry Costello. Patient had been sick at home for 3 or 4 days with worsening dyspnea, cough, and phlegm production. No chest pain, no hemoptysis, no leg pain or leg swelling, he did complain of fever, sister is at the bedside and the patient is hard of hearing and some of the history was provided by his sister. She stated that patient had been sick for close to one week. Chest x-ray in emergency department showed new right-sided patchy airspace disease, and complete opacification of left hemithorax status post left pneumonectomy. Patient is afebrile on presentation, his pulse ox is 88% on room air, patient is tachycardic, short of breath, his lab work showed a white blood cell count of 21.2, hemoglobin of 11.2, INR is 6.0, patient is on Coumadin for history of paroxysmal atrial fibrillation, his d-dimer was 0.80, electrolytes were within normal limits, B1 is 36 creatinine is 1.25, plasma lactic acid was 3.3, proBNP was 1780, troponin was 0.016, COVID-19 PCR test was negative. Patient was satting 98% on 2 L, is awake and alert, oriented 3, there is to be in no acute distress, KG showed sinus tachycardia with a rate of 122 BPM, patient was started on IV hydration with 0.9 normal saline infusing at 130 ML per hour, Zosyn and azithromycin were started for antibiotic coverage, patient was given a breathing treatment. Review of Systems All systems: negative Constitutional: Denies chills, Denies fever Eyes: denies blurred vision, denies pain Ears, nose, mouth and throat: Denies headache, Denies sore throat Cardiovascular: Denies chest pain, Denies shortness of breath Respiratory: Reports cough with sputum, Reports dyspnea, Reports respiratory infections, Denies cough Gastrointestinal: Denies abdominal pain, Denies diarrhea, Denies nausea, Denies vomiting Musculoskeletal: Denies myalgias Integumentary: Denies pruritus, Denies rash Neurological: Denies numbness, Denies weakness Psychiatric: Denies anxiety, Denies depression Endocrine: Denies fatigue, Denies weight change Past Medical History Past Medical History: Coronary Artery Disease (CAD), Hypertension, Thyroid Disorder Additional Past Medical History / Comment(s): vertigo History of Any Multi-Drug Resistant Organisms: None Reported Past Surgical History: Hernia Repair, Pacemaker Additional Past Surgical History / Comment(s): Left lung removed Past Anesthesia/Blood Transfusion Reactions: No Reported Reaction Past Psychological History: No Psychological Hx Reported Smoking Status: Never smoker Past Alcohol Use History: None Reported Past Drug Use History: None Reported - Past Family History Father Additional Family Medical History / Comment(s): Father at age 71 from a myocardial infarction. Mother Additional Family Medical History / Comment(s): Mother at age 92 from old age. Brother(s) Additional Family Medical History / Comment(s): Patient has 3 brothers alive with no major medical problems. One brother is dying from stomach cancer. Sister(s) Additional Family Medical History / Comment(s): Patient has one sister and she is alive. History of hypertension and hyperlipidemia. Medications and Allergies Home Medications Medication Instructions Recorded Confirmed Type Amitriptyline HCl [Elavil] 50 mg PO HS 06/11/20 12/23/20 History Atorvastatin [Lipitor] 80 mg PO HS 06/11/20 12/23/20 History Furosemide [Lasix] 20 mg PO DAILY PRN 06/11/20 12/23/20 History Levothyroxine Sodium [Synthroid] 50 mcg PO DAILY 06/11/20 12/23/20 History Meclizine [Antivert] 12.5 mg PO DAILY 06/11/20 12/23/20 History Potassium Chloride ER [K-Dur 10] 10 meq PO DAILY PRN 06/11/20 12/23/20 History Losartan [Cozaar] 50 mg PO DAILY #30 tab 06/14/20 12/23/20 Rx Warfarin [Coumadin] 5 mg PO SUTH@2100 07/16/20 12/23/20 History Hydrocortisone Cream 1 applic TOPICAL BID PRN 12/23/20 12/23/20 History [Hydrocortisone 2.5% Cream] Magnesium Oxide 400 mg PO DAILY@1300 12/23/20 12/23/20 History Metoprolol Succinate (ER) [Toprol 100 mg PO DAILY 12/23/20 12/23/20 History Xl] Warfarin [Coumadin] 2.5 mg PO MOTUWEFRSA@2100 12/23/20 12/23/20 History Allergies Allergy/AdvReac Type Severity Reaction Status Date / Time No Known Allergies Allergy Verified 12/23/20 10:09 Physical Exam Vitals: Vital Signs Temp Pulse Resp BP Pulse Ox 12/23/20 12:24 112 H 18 136/72 98 12/23/20 10:26 88 L 12/23/20 10:06 98.2 F 128 H 18 91/60 91 L Intake and Output 12/22/20 12/23/20 12/23/20 22:59 06:59 14:59 Other: Weight 69.853 kg GENERAL EXAM: Alert, very hard of hearing, 75-year-old white male, resting comfortably on a stretcher in the emergency department, on 2 L of oxygen pulse ox of 98% comfortable in no apparent distress. HEAD: Normocephalic/atraumatic. EYES: Normal reaction of pupils, equal size. Conjunctiva pink, sclera white. NOSE: Clear with pink turbinates. THROAT: No erythema or exudates. NECK: No masses, no JVD, no thyroid enlargement, no adenopathy. CHEST: No chest wall deformity. Symmetrical expansion. LUNGS: Equal air entry with bibasilar crackles CVS: Regular rate and rhythm, normal S1 and S2, no gallops, no murmurs, no rubs ABDOMEN: Soft, nontender. No hepatosplenomegaly, normal bowel sounds, no guarding or rigidity. EXTREMITIES: No clubbing, no edema, no cyanosis, 2+ pulses and upper and lower extremities. MUSCULOSKELETAL: Muscle strength and tone normal. SPINE: No scoliosis or deformity SKIN: No rashes CENTRAL NERVOUS SYSTEM: Alert and oriented -3. No focal deficits, tone is normal in all 4 extremities. PSYCHIATRIC: Alert and oriented -3. Appropriate affect. Intact judgment and insight. Results - Laboratory Findings CBC and BMP: 12/23/20 10:38 12/23/20 10:38 PT/INR, D-dimer PT 58.1 sec (9.0-12.0) H 12/23/20 10:38 INR 6.0 (<1.2) H* 12/23/20 10:38 D-Dimer 0.80 mg/L FEU (<0.60) H 12/23/20 10:38 Abnormal lab findings: Abnormal Labs 12/23/20 12/23/20 12/23/20 10:38 10:38 10:38 WBC 21.2 H RBC 4.16 L Hgb 11.2 L Hct 33.5 L RDW 17.8 H Neutrophils # (Manual) 16.75 H Monocytes # (Manual) 3.39 H PT 58.1 H INR 6.0 H* APTT 48.9 H D-Dimer 0.80 H BUN 36 H Glucose 136 H Plasma Lactic Acid Robert Total Bilirubin 2.9 H 12/23/20 10:38 WBC RBC Hgb Hct RDW Neutrophils # (Manual) Monocytes # (Manual) PT INR APTT D-Dimer BUN Glucose Plasma Lactic Acid Roebrt 3.3 H* Total Bilirubin - Diagnostic Findings Chest x-ray: report reviewed, image reviewed CT scan - chest: report reviewed, image reviewed Assessment and Plan Plan: Assessment: #1. Acute hypoxic respiratory failure related to acute community acquired pneumonia with sepsis, COVID-19 PCR was negative #2. Lactic acidosis related to sepsis secondary to pneumonia #3. History of left pneumonectomy related to history of non-small cell lung cancer in 2008 #4. History of COPD #5. History of sick sinus syndrome with syncopal episodes, status post permanent by the pacemaker implantation in July 2020 #6. Paroxysmal A. fib on Coumadin, currently in paced mechanism #7. Supratherapeutic INR of 6.0 #8. Ex-smoker, in remission since 2010 #9. History of EtOH with alcoholic peripheral neuropathy, in remission #10. Hypertension #11. Coronary artery disease #12. Hypothyroidism Plan: Continue antibiotics with Zosyn only Stop azithromycin Continue breathing treatments Continue IV hydration Send blood cultures and sputum culture Continue close monitoring I performed a history & physical examination of the patient and discussed their management with my nurse practitioner, Marycarmen Lucero. I reviewed the nurse practitioner's note and agree with the documented findings and plan of care. Lung sounds are positive for diffuse wheezes throughout the lung boone. The findings and the impression was discussed with the patient. I attest to the documentation by the nurse practitioner. Time with Patient: Greater than 30
--- NOTE | 2020-12-23 13:45 | CT ---
CT CHEST FOR PULMONARY EMBOLISM. EXAMINATION TYPE: CT angio chest DATE OF EXAM: 12/23/2020 INDICATION: Elevated d-dimer, difficulty breathing CT DLP: 472 mGycm, Automated exposure control for dose reduction was used. CONTRAST: Patient injected with 80 mL of Isovue 370. COMPARISON: 09/02/2013 TECHNIQUE: CT of the chest is performed on a spiral scan at 2 mm thick sections. Study is performed with intravenous contrast timed for evaluation for pulmonary embolism. This will limit additional po rtions of the evaluation. 3-D MIP images reconstructed by the technologist are reviewed on the compu ter in the coronal and sagittal planes. FINDINGS: No persistent filling defects are evident to suggest an acute pulmonary embolism. Contrast is greater in the aortic system than in the pulmonary arteries. This will limit pulmonary embolism evaluation. No dissection is evident. No mediastinal or hilar adenopathy enlarged by CT criteria is evident. The ascending aorta diameter at the level of the main pulmonary artery is 3.5 cm. The main pulmonary artery diameter at the bifur cation is 2.9 cm. Small hydropneumothorax is present from the resected left lung. Mediastinum is shifted to the left. G roundglass opacities are through the right lung. Correlate for pulmonary edema. Atypical pneumonia co uld be considered. Limited CT section through the upper abdomen are unremarkable. IMPRESSIONS: 1. Ground glass opacities of the right lung. Pulmonary edema and atypical pneumonia should be conside red.
[2020-12-23] MEDS: PANTOPRAZOLE 40 MG/10 ML VIAL IVP SCH (14:50)
[2020-12-23] MEDS: ATORVASTATIN 80 MG TAB PO SCH (23:31)
[2020-12-23] MEDS: AMITRIPTYLINE HCL 50 MG TAB PO SCH (23:31)
[2020-12-23] MEDS: PIPERACILLIN-TAZOBACTAM 3.375 GM in SODIUM CHLORIDE 0.9% 100 ML IVPB SCH (23:31)
[2020-12-24] MEDS: ACETAMINOPHEN TAB 325 MG TAB PO PRN ×2 (04:48→13:17)
[2020-12-24] MEDS: LEVOTHYROXINE 50 MCG TAB PO SCH (05:54)
[2020-12-24] MEDS: SODIUM CHLORIDE 0.9% 1,000 ML IV SCH ×2 (06:32→11:54)
[2020-12-24] MEDS: PIPERACILLIN-TAZOBACTAM 3.375 GM in SODIUM CHLORIDE 0.9% 100 ML IVPB SCH ×2 (08:19→16:26)
[2020-12-24] MEDS: PANTOPRAZOLE 40 MG/10 ML VIAL IVP SCH (08:19)
--- NOTE | 2020-12-24 08:48 | XR ---
EXAMINATION TYPE: XR chest 2V DATE OF EXAM: 12/24/2020 COMPARISON: 12/23/2020 HISTORY: Pneumonia TECHNIQUE: Frontal and lateral views of the chest are obtained. FINDINGS: Again seen is extensive airspace disease of the right lung and complete opacification of the left hem ithorax with shift of the cardiac silhouette into the left hemithorax. IMPRESSION: No significant change since the prior.
[2020-12-24] MEDS ORDERED: AZITHROMYCIN 500 MG in SODIUM CHLORIDE 0.9% 250 ML IVPB SCH (09:00)
--- NOTE | 2020-12-24 10:08 | P.PN ---
Subjective Progress Note Date: 12/24/20 Principal diagnosis: Pneumonia, lung cancer. This is a 75-year-old white male patient of Dr. Oglesby with past medical history of COPD, former smoker, non-small cell lung cancer diagnosed in 2008, status post left pneumonectomy, remote history of alcohol abuse, and alcoholic perip heral neuropathy, hypertension, CAD, paroxysmal A. fib and hypothyroidism. His left pneumonectomy was performed by Dr. Ho. He does not follow with a peer specialist. Patient also recently had a permanent biventricular pacemaker inserted in July 2020 presenting with syncope and sick sinus syndrome, and this was done by Dr. Terry Costello. Patient had been sick at home for 3 or 4 days with worsening dyspnea, cough, and phlegm production. No chest pain, no hemoptysis, no leg pain or leg swelling, he did complain of fever, sister is at the bedside and the patient is hard of hearing and some of the history was provided by his sister. She stated that patient had been sick for close to one week. Chest x-ray in emergency department showed new right-sided patchy airspace disease, and complete opacification of left hemithorax status post left pneumonectomy. Patient is afebrile on presentation, his pulse ox is 88% on room air, patient is tachycardic, short of breath, his lab work showed a white blood cell count of 21.2, hemoglobin of 11.2, INR is 6.0, patient is on Coumadin for history of paroxysmal atrial fibrillation, his d-dimer was 0.80, electrolytes were within normal limits, B1 is 36 creatinine is 1.25, plasma lactic acid was 3.3, proBNP was 1780, troponin was 0.016, COVID-19 PCR test was negative. Patient was satting 98% on 2 L, is awake and alert, oriented 3, there is to be in no acute distress, KG showed sinus tachycardia with a rate of 122 BPM, patient was started on IV hydration with 0.9 normal saline infusing at 130 ML per hour, Zosyn and azithromycin were started for antibiotic coverage, patient was given a breathing treatment. Progress note dated 12/24/2020. This is a 75-year-old male who was admitted with a diagnosis of acute hypoxemic respiratory failure secondary to community-acquired pneumonia involving the right lung. The patient has a prior history of left pneumonectomy for non-small cell lung cancer in 2008. He currently does not smoke. He is feeling better. He is less short of breath. He's currently on oxygen therapy at 3 L. In addition, he has a history of hypothyroidism, CAD, hypertension, alcohol abuse with alcoholic peripheral neuropathy, paroxysmal atrial fibrillation, sick sinus syndrome, status post pacemaker implantation, and of course COPD. No new labs today. Chest x-ray from today continues to show extensive airspace disease in the right lung. The left lung is opacified secondary to previous left pneum onectomy. Objective - Vital Signs Vital signs: Vital Signs Temp 97.7 F 12/24/20 08:16 Pulse 107 H 12/24/20 08:16 Resp 18 12/24/20 08:16 BP 114/71 12/24/20 08:16 Pulse Ox 97 12/24/20 08:16 Intake & Output 12/23/20 12/24/20 12/24/20 18:59 06:59 18:59 Weight 69.853 kg Other: # Voids 1 - Exam No acute distress, oriented 3. Currently on nasal O2 at 3 L. HEENT examination is grossly unremarkable. Neck supple. Full range of motion. No adenopathy thyromegaly or neck vein distention. Cardiovascular examination reveals regular rhythm rate. S1-S2 normal. No S3 or S4. No discernible murmur noted. Heart sounds are distant. Heart rate is 97 bpm. Lungs reveal severely diminished breath sounds on the left. Right-sided breast sounds show evidence of diffuse rhonchi, and a few scattered crackles. There are no wheezes. Abdomen soft bowel sounds are heard. No masses or tenderness. Extremities are intact. No cyanosis clubbing or edema. Skin is without rash or lesion. Neurologic examination is brief but nonfocal. - Labs CBC & Chem 7: 12/23/20 10:38 12/23/20 10:38 Labs: Abnormal Lab Results - Last 24 Hours (Table) 12/23/20 12/23/20 12/23/20 Range/Units 10:38 10:38 10:38 WBC 21.2 H (3.8-10.6) k/uL RBC 4.16 L (4.30-5.90) m/uL Hgb 11.2 L (13.0-17.5) gm/dL Hct 33.5 L (39.0-53.0) % RDW 17.8 H (11.5-15.5) % Neutrophils # (Manual) 16.75 H (1.3-7.7) k/uL Monocytes # (Manual) 3.39 H (0-1.0) k/uL PT 58.1 H (9.0-12.0) sec INR 6.0 H* (<1.2) APTT 48.9 H (22.0-30.0) sec D-Dimer 0.80 H (<0.60) mg/L FEU BUN 36 H (9-20) mg/dL Glucose 136 H (74-99) mg/dL Plasma Lactic Acid Robert (0.7-2.0) mmol/L Total Bilirubin 2.9 H (0.2-1.3) mg/dL 12/23/20 Range/Units 10:38 WBC (3.8-10.6) k/uL RBC (4.30-5.90) m/uL Hgb (13.0-17.5) gm/dL Hct (39.0-53.0) % RDW (11.5-15.5) % Neutrophils # (Manual) (1.3-7.7) k/uL Monocytes # (Manual) (0-1.0) k/uL PT (9.0-12.0) sec INR (<1.2) APTT (22.0-30.0) sec D-Dimer (<0.60) mg/L FEU BUN (9-20) mg/dL Glucose (74-99) mg/dL Plasma Lactic Acid Robert 3.3 H* (0.7-2.0) mmol/L Total Bilirubin (0.2-1.3) mg/dL Assessment and Plan Assessment: #1. Acute hypoxic respiratory failure related to acute community acquired pneumonia with sepsis, COVID-19 PCR was negative. #2. Lactic acidosis related to sepsis secondary to pneumonia. #3. History of left pneumonectomy related to history of non-small cell lung cancer in 2008. #4. History of COPD. #5. History of sick sinus syndrome with syncopal episodes, status post permanent by the pacemaker implantation in July 2020. #6. Paroxysmal A. fib on Coumadin, currently in paced mechanism. #7. Supratherapeutic INR of 6.0. #8. Ex-smoker, in remission since 2010. #9. History of EtOH with alcoholic peripheral neuropathy, in remission. #10. Hypertension. #11. Coronary artery disease. #12. Hypothyroidism. Plan: Plan dated 12/24/2020. The patient remains on Zosyn. This Zithromax was discontinued. He currently is on breathing treatments. We will continue to follow make recommendations where appropriate. Clinically he feels a bit better today than he did yesterday. Chest x-ray though, is unchanged. Prognosis is guarded.
[2020-12-24] MEDS: LOSARTAN 50 MG TAB PO SCH (10:25)
[2020-12-24] MEDS: MECLIZINE 12.5 MG TAB PO SCH (10:25)
[2020-12-24] MEDS: METOPROLOL SUCCINATE (ER) 100 MG TAB.ER.24H PO SCH (10:26)
[2020-12-24] MEDS: MAGNESIUM OXIDE 400 MG TAB PO SCH (11:58)
[2020-12-24] MEDS ORDERED: PNEUMOCOCCAL VACC-PNEUMOVAX 23 25 MCG/0.5 ML VIAL IM ONE (13:35)
[2020-12-24 13:38] LABS: Prothrombin Time 64.8 sec (9.0-12.0)
[2020-12-24 13:40] LABS: Anisocytosis Slight; HCT 30.1 % (39.0-53.0); Hypochromasia Moderate; MCH 27.2 pg (25.0-35.0); MCHC 31.3 g/dL (31.0-37.0); Mean Platelet Volume 9.1; Platelet Count 251 k/uL (150-450); RBC 3.47 m/uL (4.30-5.90); RDW 18.6 % (11.5-15.5); WBC 37.1 k/uL (3.8-10.6)
[2020-12-24 13:43] LABS: HGB 9.4 gm/dL (13.0-17.5); MCV 86.8 fL (80.0-100.0)
[2020-12-24 13:53] LABS: INR 6.7 (<1.2)
[2020-12-24 14:09] LABS: ALT 16 U/L (4-49); AST 37 U/L (17-59); African American GFR (CKD) 89 (>60 ml/min/1.73 sqM); Albumin 3.2 g/dL (3.5-5.0); Albumin/Globulin Ratio 1.2; Alkaline Phosphatase 92 U/L (38-126); Anion Gap 8 mmol/L; Blood Urea Nitrogen 34 mg/dL (9-20); Calcium 7.9 mg/dL (8.4-10.2); Carbon Dioxide 24 mmol/L (22-30); Chloride 106 mmol/L (98-107); Globulin 2.6 g/dL; Glucose 159 mg/dL (74-99); Non-African American GFR(CKD) 77 (>60 ml/min/1.73 sqM); Potassium 4.5 mmol/L (3.5-5.1); Sodium 138 mmol/L (137-145); Total Bilirubin 2.9 mg/dL (0.2-1.3); Total Protein 5.8 g/dL (6.3-8.2)
[2020-12-24] MEDS: ATORVASTATIN 80 MG TAB PO SCH (21:18)
[2020-12-24] MEDS: AMITRIPTYLINE HCL 50 MG TAB PO SCH (21:18)
[2020-12-25] MEDS: PIPERACILLIN-TAZOBACTAM 3.375 GM in SODIUM CHLORIDE 0.9% 100 ML IVPB SCH ×4 (00:35→23:45)
[2020-12-25 05:09] LABS: Glucose,Whole Blood 133 mg/dL (75-99)
[2020-12-25] MEDS: LEVOTHYROXINE 50 MCG TAB PO SCH (05:45)
[2020-12-25] MEDS ORDERED: PNEUMOCOCCAL VACC-PNEUMOVAX 23 25 MCG/0.5 ML VIAL IM ONE (06:47)
[2020-12-25] MEDS: ACETAMINOPHEN TAB 325 MG TAB PO PRN (07:11)
[2020-12-25] MEDS ORDERED: PANTOPRAZOLE 40 MG TABLET PO SCH (07:30)
[2020-12-25] MEDS ORDERED: PHYTONADIONE ORAL 5 MG/5 ML ORAL.SYRG PO STA (09:12)
[2020-12-25] MEDS: LOSARTAN 50 MG TAB PO SCH (09:13)
[2020-12-25] MEDS: MECLIZINE 12.5 MG TAB PO SCH (09:33)
[2020-12-25] MEDS: METOPROLOL SUCCINATE (ER) 100 MG TAB.ER.24H PO SCH (09:33)
[2020-12-25 09:51] LABS: HCT 26.3 % (39.6-50.0); HGB 7.8 g/dL (13.0-17.0); MCH 26.4 pg (27.0-32.0); MCHC 29.7 g/dL (32.0-37.0); MCV 89.2 fL (80.0-97.0); Mean Platelet Volume 12.2 fL (9.5-12.2); Platelet Count 265 X 10*3/uL (140-440); RBC 2.95 X 10*6/uL (4.40-5.60); RDW 19.8 % (11.5-14.5); WBC 36.71 X 10*3/uL (4.50-10.00)
[2020-12-25 10:00] LABS: Glucose,Whole Blood 161 mg/dL (75-99)
[2020-12-25 10:36] LABS: Anisocytosis Slight; HCT 22.6 % (39.0-53.0); Hypochromasia Slight; MCH 27.7 pg (25.0-35.0); MCHC 32.1 g/dL (31.0-37.0); MCV 86.3 fL (80.0-100.0); Mean Platelet Volume 9.6; Platelet Count 238 k/uL (150-450); RBC 2.62 m/uL (4.30-5.90); WBC 36.9 k/uL (3.8-10.6)
[2020-12-25] MEDS ORDERED: SODIUM CHLORIDE 0.9% 1,000 ML IV ONE (10:51)
[2020-12-25 10:54] LABS: Prothrombin Time 47.9 sec (9.0-12.0)
[2020-12-25 11:06] LABS: Albumin 2.6 g/dL (3.5-5.0); Calcium 7.7 mg/dL (8.4-10.2); Potassium 3.8 mmol/L (3.5-5.1); Total Bilirubin 3.1 mg/dL (0.2-1.3); Total Protein 4.9 g/dL (6.3-8.2)
--- NOTE | 2020-12-25 11:17 | P.PN ---
Subjective Progress Note Date: 12/25/20 Principal diagnosis: Pneumonia, lung cancer. This is a 75-year-old white male patient of Dr. Oglesby with past medical history of COPD, former smoker, non-small cell lung cancer diagnosed in 2008, status post left pneumonectomy, remote history of alcohol abuse, and alcoholic perip heral neuropathy, hypertension, CAD, paroxysmal A. fib and hypothyroidism. His left pneumonectomy was performed by Dr. Ho. He does not follow with a event specialist. Patient also recently had a permanent biventricular pacemaker inserted in July 2020 presenting with syncope and sick sinus syndrome, and this was done by Dr. Terry Costello. Patient had been sick at home for 3 or 4 days with worsening dyspnea, cough, and phlegm production. No chest pain, no hemoptysis, no leg pain or leg swelling, he did complain of fever, sister is at the bedside and the patient is hard of hearing and some of the history was provided by his sister. She stated that patient had been sick for close to one week. Chest x-ray in emergency department showed new right-sided patchy airspace disease, and complete opacification of left hemithorax status post left pneumonectomy. Patient is afebrile on presentation, his pulse ox is 88% on room air, patient is tachycardic, short of breath, his lab work showed a white blood cell count of 21.2, hemoglobin of 11.2, INR is 6.0, patient is on Coumadin for history of paroxysmal atrial fibrillation, his d-dimer was 0.80, electrolytes were within normal limits, B1 is 36 creatinine is 1.25, plasma lactic acid was 3.3, proBNP was 1780, troponin was 0.016, COVID-19 PCR test was negative. Patient was satting 98% on 2 L, is awake and alert, oriented 3, there is to be in no acute distress, KG showed sinus tachycardia with a rate of 122 BPM, patient was started on IV hydration with 0.9 normal saline infusing at 130 ML per hour, Zosyn and azithromycin were started for antibiotic coverage, patient was given a breathing treatment. Progress note dated 12/24/2020. This is a 75-year-old male who was admitted with a diagnosis of acute hypoxemic respiratory failure secondary to community-acquired pneumonia involving the right lung. The patient has a prior history of left pneumonectomy for non-small cell lung cancer in 2008. He currently does not smoke. He is feeling better. He is less short of breath. He's currently on oxygen therapy at 3 L. In addition, he has a history of hypothyroidism, CAD, hypertension, alcohol abuse with alcoholic peripheral neuropathy, paroxysmal atrial fibrillation, sick sinus syndrome, status post pacemaker implantation, and of course COPD. No new labs today. Chest x-ray from today continues to show extensive airspace disease in the right lung. The left lung is opacified secondary to previous left pneum onectomy. Progress note dated 12/25/2020. This is a 75-year-old male, that was seen in room 462 today. He was admitted with a diagnosis of acute hypoxemic respiratory failure secondary to community- acquired pneumonia involving the right lung. The patient has a previous history of left pneumonectomy done by Dr. Ho, for non-small cell lung cancer. This was done in 2008. Currently does not smoke. Although yesterday was feeling better from the pulmonary standpoint, apparently last night, he became very weak. He also became more short of breath and required more oxygen. Apparently he had a syncopal episode or an episode of low blood pressure. He also had 2 bowel movements which were black, and there were concerns that the patient was deteriorating, with a GI bleed. The primary service asked whether or not we could transfer the patient to the intensive care unit. We agreed to. The patient does have a history of hypothyroidism, CAD, hypertension, alcohol abuse, with alcoholic peripheral neuropathy, paroxysmal atrial relation, sick sinus syndrome, status post pacemaker insertion, and COPD. Today's labs include a PTT of 47.9 and an INR of 5.0. His hemoglobin is down to 7.8 from 9.4. White count is 36.71. Hematocrit 26.3, platelet count 265,000. Sodium potassium chl oride CO2 all normal. Anion gap normal. BUN 35, with a creatinine 1.12. Objective - Vital Signs Vital signs: Vital Signs Temp 98.9 F 12/25/20 06:53 Pulse 102 H 12/25/20 06:53 Resp 19 12/25/20 06:53 BP 107/63 12/25/20 06:53 Pulse Ox 95 12/25/20 06:53 Intake & Output 12/24/20 12/25/20 12/25/20 18:59 06:59 18:59 Other: Voiding Method Urinal # Bowel Movements 1 - Exam No acute distress, oriented 3. Currently on nasal O2 at 2 L. Saturations are 95%. HEENT examination is grossly unremarkable. Neck supple. Full range of motion. No adenopathy thyromegaly or neck vein distention. Cardiovascular examination reveals regular rhythm rate. S1-S2 normal. No S3 or S4. No discernible murmur noted. Heart sounds are distant. Heart rate is 102 bpm. Lungs reveal severely diminished breath sounds on the left. Right-sided breast sounds show evidence of diffuse rhonchi, and a few scattered crackles. There are no wheezes. Abdomen soft bowel sounds are heard. No masses or tenderness. Extremities are intact. No cyanosis clubbing or edema. Skin is without rash or lesion. Skin is a bit pale. Neurologic examination is brief but nonfocal. - Labs CBC & Chem 7: 12/25/20 05:54 12/25/20 10:17 Labs: Abnormal Lab Results - Last 24 Hours (Table) 12/24/20 12/24/20 12/24/20 Range/Units 08:59 13:13 13:13 WBC 37.1 H (3.8-10.6) k/uL RBC 3.47 L (4.30-5.90) m/uL Hgb 9.4 L D (13.0-17.5) gm/dL Hct 30.1 L (39.0-53.0) % MCH (27.0-32.0) pg MCHC (32.0-37.0) g/dL RDW 18.6 H (11.5-15.5) % PT 64.8 H (9.0-12.0) sec INR 6.7 H* (<1.2) BUN (9-20) mg/dL Glucose (74-99) mg/dL POC Glucose (mg/dL) (75-99) mg/dL Plasma Lactic Acid Robert (0.7-2.0) mmol/L Calcium (8.4-10.2) mg/dL Total Bilirubin (0.2-1.3) mg/dL Total Protein (6.3-8.2) g/dL Albumin (3.5-5.0) g/dL Procalcitonin 0.13 H (0.02-0.09) ng/mL 12/24/20 12/25/20 12/25/20 Range/Units 13:13 05:08 05:54 WBC 36.71 H (3.8-10.6) k/uL RBC 2.95 L (4.30-5.90) m/uL Hgb 7.8 L (13.0-17.5) gm/dL Hct 26.3 L (39.0-53.0) % MCH 26.4 L (27.0-32.0) pg MCHC 29.7 L (32.0-37.0) g/dL RDW 19.8 H (11.5-15.5) % PT (9.0-12.0) sec INR (<1.2) BUN 34 H (9-20) mg/dL Glucose 159 H (74-99) mg/dL POC Glucose (mg/dL) 133 H (75-99) mg/dL Plasma Lactic Acid Robert (0.7-2.0) mmol/L Calcium 7.9 L (8.4-10.2) mg/dL Total Bilirubin 2.9 H (0.2-1.3) mg/dL Total Protein 5.8 L (6.3-8.2) g/dL Albumin 3.2 L (3.5-5.0) g/dL Procalcitonin (0.02-0.09) ng/mL 12/25/20 12/25/20 12/25/20 Range/Units 09:58 10:17 10:17 WBC (3.8-10.6) k/uL RBC (4.30-5.90) m/uL Hgb (13.0-17.5) gm/dL Hct (39.0-53.0) % MCH (27.0-32.0) pg MCHC (32.0-37.0) g/dL RDW (11.5-15.5) % PT 47.9 H (9.0-12.0) sec INR 5.0 H (<1.2) BUN 35 H (9-20) mg/dL Glucose 143 H (74-99) mg/dL POC Glucose (mg/dL) 161 H (75-99) mg/dL Plasma Lactic Acid Robert (0.7-2.0) mmol/L Calcium 7.7 L (8.4-10.2) mg/dL Total Bilirubin 3.1 H (0.2-1.3) mg/dL Total Protein 4.9 L (6.3-8.2) g/dL Albumin 2.6 L (3.5-5.0) g/dL Procalcitonin (0.02-0.09) ng/mL 12/25/20 Range/Units 10:17 WBC (3.8-10.6) k/uL RBC (4.30-5.90) m/uL Hgb (13.0-17.5) gm/dL Hct (39.0-53.0) % MCH (27.0-32.0) pg MCHC (32.0-37.0) g/dL RDW (11.5-15.5) % PT (9.0-12.0) sec INR (<1.2) BUN (9-20) mg/dL Glucose (74-99) mg/dL POC Glucose (mg/dL) (75-99) mg/dL Plasma Lactic Acid Robert 2.3 H* (0.7-2.0) mmol/L Calcium (8.4-10.2) mg/dL Total Bilirubin (0.2-1.3) mg/dL Total Protein (6.3-8.2) g/dL Albumin (3.5-5.0) g/dL Procalcitonin (0.02-0.09) ng/mL Microbiology - Last 24 Hours (Table) 12/23/20 12:30 Blood Culture - Preliminary Blood No Growth after 24 hours 12/23/20 12:15 Blood Culture - Preliminary Blood No Growth after 24 hours Assessment and Plan Assessment: #1. Acute hypoxic respiratory failure related to acute community acquired pneumonia with sepsis, COVID-19 PCR was negative. #2. Lactic acidosis related to sepsis secondary to pneumonia. #3. History of left pneumonectomy related to history of non-small cell lung cancer in 2008. #4. History of COPD. #5. History of sick sinus syndrome with syncopal episodes, status post permanent by the pacemaker implantation in July 2020. #6. Paroxysmal A. fib on Coumadin, currently in paced mechanism. #7. Supratherapeutic INR of 6.0. #8. Ex-smoker, in remission since 2010. #9. History of EtOH with alcoholic peripheral neuropathy, in remission. #10. Hypertension. #11. Coronary artery disease. #12. Hypothyroidism. #13. Gastrointestinal bleed with resultant anemia. Plan: Plan dated 12/24/2020. The patient remains on Zosyn. This Zithromax was discontinued. He currently is on breathing treatments. We will continue to follow make recommendations where appropriate. Clinically he feels a bit better today than he did yesterday. Chest x-ray though, is unchanged. Prognosis is guarded. Plan dated 12/25/2020. The patient's morning blood work was reviewed. Hemoglobin dropped to 7.8. The patient will be transferred to the intensive care unit for closer monitoring. The patient is currently on antibiotic for right-sided pneumonia. Additional recommendations and suggestions are forthcoming. Prognosis is guarded. We will continue to follow make recommendations where appropriate. Time with Patient: Less than 30
[2020-12-25 11:20] LABS: HGB 7.3 gm/dL (13.0-17.5)
[2020-12-25 11:32] LABS: Band Neutrophils % 9 %; Lymphocytes # (M) 1.48 k/uL (1.0-4.8); Neutrophils % (M) 87 %; Nucleated Red Blood Cells 0 /100 WBC (0-0); Total Cells Counted 100
[2020-12-25 11:33] LABS: Poikilocytosis (M) Present; Polychromasia Present
[2020-12-25 12:43] LABS: INR 5.68 (0.90-1.11); Prothrombin Time 55.3 sec (9.9-11.9)
[2020-12-25 13:09] LABS: African American GFR (CKD) 75.2 (60.0-200.0); Albumin 3.1 g/dL (3.80-4.90); Albumin/Globulin Ratio 1.41 (1.60-3.17); Anion Gap 13.1 mmol/L (4.00-12.00); BUN/Creat Ratio 32.73 Ratio (12.00-20.00); Calcium 7.8 mg/dL (8.7-10.3); Carbon Dioxide 21.9 mmol/L (21.6-31.8); Globulin 2.2 g/dL (1.6-3.3); Non-African American GFR(CKD) 64.9 (60.0-200.0); Potassium 4.1 mmol/L (3.5-5.5); Total Bilirubin 3.5 mg/dL (0.3-1.2); Total Protein 5.3 g/dL (6.2-8.2)
[2020-12-25] MEDS: MAGNESIUM OXIDE 400 MG TAB PO SCH (13:22)
[2020-12-25] MEDS: DILTIAZEM 125 MG in SODIUM CHLORIDE 0.9% 100 ML IV SCH (18:30)
[2020-12-25 19:04] LABS: Anisocytosis Slight; HCT 27.6 % (39.0-53.0); Hypochromasia Slight; MCH 28.4 pg (25.0-35.0); MCHC 32.3 g/dL (31.0-37.0); MCV 87.8 fL (80.0-100.0); Mean Platelet Volume 9.7; Platelet Count 217 k/uL (150-450); RBC 3.14 m/uL (4.30-5.90); RDW 18.5 % (11.5-15.5); WBC 39.1 k/uL (3.8-10.6)
[2020-12-25 19:08] LABS: HGB 8.9 gm/dL (13.0-17.5)
[2020-12-25] MEDS: AMITRIPTYLINE HCL 50 MG TAB PO SCH (21:20)
[2020-12-25] MEDS: PANTOPRAZOLE 40 MG/10 ML VIAL IVP SCH (21:20)
[2020-12-25] MEDS: ATORVASTATIN 80 MG TAB PO SCH (21:20)
[2020-12-25 22:58] LABS: Anisocytosis Slight; HCT 27.6 % (39.0-53.0); HGB 9.1 gm/dL (13.0-17.5); Hypochromasia Slight; MCH 29.2 pg (25.0-35.0); MCHC 33.2 g/dL (31.0-37.0); MCV 87.8 fL (80.0-100.0); Mean Platelet Volume 9.9; Platelet Count 234 k/uL (150-450); Poikilocytosis Slight; RBC 3.14 m/uL (4.30-5.90); RDW 18.6 % (11.5-15.5); WBC 38.9 k/uL (3.8-10.6)
[2020-12-25 23:47] LABS: INR 1.6 (<1.2); Prothrombin Time 15.7 sec (9.0-12.0)
[2020-12-26] MEDS: ACETAMINOPHEN TAB 325 MG TAB PO PRN ×3 (05:05→20:24)
[2020-12-26 05:17] LABS: Anisocytosis Slight; Basophils # (A) 0.1 k/uL (0-0.2); Basophils % (A) 0 %; Eosinophils # (A) 0.1 k/uL (0-0.7); Eosinophils % (A) 0 %; HCT 27.5 % (39.0-53.0); HGB 8.4 gm/dL (13.0-17.5); Hypochromasia Moderate; Lymphocytes # (A) 1.9 k/uL (1.0-4.8); Lymphocytes % (A) 4 %; MCH 27.6 pg (25.0-35.0); MCHC 30.5 g/dL (31.0-37.0); MCV 90.3 fL (80.0-100.0); Mean Platelet Volume 9.4; Monocytes # (A) 5.5 k/uL (0-1.0); Monocytes % (A) 12 %; Neutrophils # (A) 36.1 k/uL (1.3-7.7); Neutrophils % (A) 82 %; Platelet Count 285 k/uL (150-450); Poikilocytosis Slight; RBC 3.05 m/uL (4.30-5.90); RDW 19.2 % (11.5-15.5); WBC 44.1 k/uL (3.8-10.6)
[2020-12-26 05:21] LABS: INR 1.2 (<1.2); Prothrombin Time 12.4 sec (9.0-12.0)
[2020-12-26 05:24] LABS: African American GFR (CKD) >90 (>60 ml/min/1.73 sqM); Anion Gap 9 mmol/L; Blood Urea Nitrogen 24 mg/dL (9-20); Carbon Dioxide 22 mmol/L (22-30); Chloride 110 mmol/L (98-107); Glucose 109 mg/dL (74-99); Non-African American GFR(CKD) 79 (>60 ml/min/1.73 sqM); Potassium 4.1 mmol/L (3.5-5.1); Sodium 141 mmol/L (137-145)
[2020-12-26 05:25] LABS: Calcium 7.4 mg/dL (8.4-10.2)
[2020-12-26] MEDS: LEVOTHYROXINE 50 MCG TAB PO SCH (06:43)
[2020-12-26] MEDS: PANTOPRAZOLE 40 MG/10 ML VIAL IVP SCH ×2 (09:02→20:24)
[2020-12-26] MEDS: PIPERACILLIN-TAZOBACTAM 3.375 GM in SODIUM CHLORIDE 0.9% 100 ML IVPB SCH ×3 (09:02→23:51)
[2020-12-26] MEDS: METOPROLOL SUCCINATE (ER) 100 MG TAB.ER.24H PO SCH (09:03)
[2020-12-26] MEDS: MECLIZINE 12.5 MG TAB PO SCH (09:04)
--- NOTE | 2020-12-26 10:09 | P.PN ---
Subjective Progress Note Date: 12/26/20 Principal diagnosis: Pneumonia, lung cancer. This is a 75-year-old white male patient of Dr. Oglesby with past medical history of COPD, former smoker, non-small cell lung cancer diagnosed in 2008, status post left pneumonectomy, remote history of alcohol abuse, and alcoholic perip heral neuropathy, hypertension, CAD, paroxysmal A. fib and hypothyroidism. His left pneumonectomy was performed by Dr. Ho. 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 Patient also recently had a permanent biventricular pacemaker inserted in July 2020 presenting with syncope and sick sinus syndrome, and this was done by Dr. Terry Costello. Patient had been sick at home for 3 or 4 days with worsening dyspnea, cough, and phlegm production. No chest pain, no hemoptysis, no leg pain or leg swelling, he did complain of fever, sister is at the bedside and the patient is hard of hearing and some of the history was provided by his sister. She stated that patient had been sick for close to one week. Chest x-ray in emergency department showed new right-sided patchy airspace disease, and complete opacification of left hemithorax status post left pneumonectomy. Patient is afebrile on presentation, his pulse ox is 88% on room air, patient is tachycardic, short of breath, his lab work showed a white blood cell count of 21.2, hemoglobin of 11.2, INR is 6.0, patient is on Coumadin for history of paroxysmal atrial fibrillation, his d-dimer was 0.80, electrolytes were within normal limits, B1 is 36 creatinine is 1.25, plasma lactic acid was 3.3, proBNP was 1780, troponin was 0.016, COVID-19 PCR test was negative. Patient was satting 98% on 2 L, is awake and alert, oriented 3, there is to be in no acute distress, KG showed sinus tachycardia with a rate of 122 BPM, patient was started on IV hydration with 0.9 normal saline infusing at 130 ML per hour, Zosyn and azithromycin were started for antibiotic coverage, patient was given a breathing treatment. Progress note dated 12/24/2020. This is a 75-year-old male who was admitted with a diagnosis of acute hypoxemic respiratory failure secondary to community-acquired pneumonia involving the right lung. The patient has a prior history of left pneumonectomy for non-small cell lung cancer in 2008. He currently does not smoke. He is feeling better. He is less short of breath. He's currently on oxygen therapy at 3 L. In addition, he has a history of hypothyroidism, CAD, hypertension, alcohol abuse with alcoholic peripheral neuropathy, paroxysmal atrial fibrillation, sick sinus syndrome, status post pacemaker implantation, and of course COPD. No new labs today. Chest x-ray from today continues to show extensive airspace disease in the right lung. The left lung is opacified secondary to previous left pneum onectomy. Progress note dated 12/25/2020. This is a 75-year-old male, that was seen in room 462 today. He was admitted with a diagnosis of acute hypoxemic respiratory failure secondary to community- acquired pneumonia involving the right lung. The patient has a previous history of left pneumonectomy done by Dr. Ho, for non-small cell lung cancer. This was done in 2008. Currently does not smoke. Although yesterday was feeling better from the pulmonary standpoint, apparently last night, he became very weak. He also became more short of breath and required more oxygen. Apparently he had a syncopal episode or an episode of low blood pressure. He also had 2 bowel movements which were black, and there were concerns that the patient was deteriorating, with a GI bleed. The primary service asked whether or not we could transfer the patient to the intensive care unit. We agreed to. The patient does have a history of hypothyroidism, CAD, hypertension, alcohol abuse, with alcoholic peripheral neuropathy, paroxysmal atrial relation, sick sinus syndrome, status post pacemaker insertion, and COPD. Today's labs include a PTT of 47.9 and an INR of 5.0. His hemoglobin is down to 7.8 from 9.4. White count is 36.71. Hematocrit 26.3, platelet count 265,000. Sodium potassium chl oride CO2 all normal. Anion gap normal. BUN 35, with a creatinine 1.12. Progress note dated 12/26/2020. 75-year-old male seen today in the ICU, room 261. He was transferred there yesterday. The patient developed a GI bleed. More recently, he developed atrial fibrillation with RVR. The patient is currently on a Cardizem drip at 5 mg an hour, saline at 50 mL an hour, and oxygen at 4 L by nasal cannula. The patient did receive 1 unit of packed red blood cells. Today's hemoglobin was 8.4. He clinically is feeling much better and actually looks much better. White count 44.1, hemoglobin 8.4, hematocrit 27.5, platelet count 285,000. ET 12.4, INR 1.2. Sodium 141, potassium 4.1, chlorides 110, CO2 22, anion gap 9, BUN 24, with a creatinine 0.94. Chest x-ray from the , reveals an opacified left hemithorax consistent with previous left pneumonectomy, and patchy infiltrates in the right lung consistent with pneumonia. Objective - Vital Signs Vital signs: Vital Signs Temp 97.6 F 12/26/20 08:00 Pulse 81 12/26/20 09:00 Resp 20 12/26/20 09:00 BP 102/47 12/26/20 09:00 Pulse Ox 98 12/26/20 09:00 Intake & Output 12/25/20 12/26/20 12/26/20 18:59 06:59 18:59 Intake Total 310 550 50 Output Total 400 400 0 Balance -90 150 50 Weight 74.6 kg Intake: IV 550 50 Sodium Chloride 0.9% 1, 550 50 000 ml @ 999 mls/hr IV . Q1H1M ONE Rx#:[id number] Blood Product 310 Rc As-1 Unit 310 [id number] Output: Urine 400 400 0 Other: Voiding Method Urinal Urinal # Voids 1 1 # Bowel Movements 1 - Exam No acute distress, oriented 3. Currently on nasal O2 at 4 L. Saturations are 98%. HEENT examination is grossly unremarkable. Neck supple. Full range of motion. No adenopathy thyromegaly or neck vein distention. Cardiovascular examination reveals regular rhythm rate. S1-S2 normal. No S3 or S4. No discernible murmur noted. Heart sounds are distant. Heart rate is 81 bpm. Lungs reveal severely diminished breath sounds on the left. Right-sided breast sounds show evidence of diffuse rhonchi, and a few scattered crackles. There are no wheezes. Abdomen soft bowel sounds are heard. No masses or tenderness. Extremities are intact. No cyanosis clubbing or edema. Skin is without rash or lesion. Skin is a bit pale. Neurologic examination is brief but nonfocal. - Labs CBC & Chem 7: 12/26/20 04:50 12/26/20 04:50 Labs: Abnormal Lab Results - Last 24 Hours (Table) 12/25/20 12/25/20 12/25/20 Range/Units 05:54 05:54 10:17 WBC 36.9 H (3.8-10.6) k/uL RBC 2.62 L (4.30-5.90) m/uL Hgb 7.3 L D (13.0-17.5) gm/dL Hct 22.6 L (39.0-53.0) % MCHC (31.0-37.0) g/dL RDW 19.0 H (11.5-15.5) % Neutrophils # (1.3-7.7) k/uL Neutrophils # (Manual) 35.40 H (1.3-7.7) k/uL Monocytes # (0-1.0) k/uL PT 55.3 H* (9.9-11.9) sec INR 5.68 H* (0.90-1.11) Chloride (98-107) mmol/L Anion Gap 13.10 H (4.00-12.00) mmol/L BUN 36.0 H (9.0-27.0) mg/dL BUN/Creatinine Ratio 32.73 H (12.00-20.00) Ratio Glucose 155 H (70-110) mg/dL Plasma Lactic Acid Robert (0.7-2.0) mmol/L Calcium 7.8 L (8.7-10.3) mg/dL Total Bilirubin 3.5 H (0.3-1.2) mg/dL AST 38 H (14-35) U/L Total Protein 5.3 L (6.2-8.2) g/dL Albumin 3.10 L (3.80-4.90) g/dL Albumin/Globulin Ratio 1.41 L (1.60-3.17) g/dL Crossmatch 12/25/20 12/25/20 12/25/20 Range/Units 10:17 10:17 10:17 WBC (3.8-10.6) k/uL RBC (4.30-5.90) m/uL Hgb (13.0-17.5) gm/dL Hct (39.0-53.0) % MCHC (31.0-37.0) g/dL RDW (11.5-15.5) % Neutrophils # (1.3-7.7) k/uL Neutrophils # (Manual) (1.3-7.7) k/uL Monocytes # (0-1.0) k/uL PT 47.9 H (9.9-11.9) sec INR 5.0 H (0.90-1.11) Chloride (98-107) mmol/L Anion Gap (4.00-12.00) mmol/L BUN 35 H (9.0-27.0) mg/dL BUN/Creatinine Ratio (12.00-20.00) Ratio Glucose 143 H (70-110) mg/dL Plasma Lactic Acid Robert 2.3 H* (0.7-2.0) mmol/L Calcium 7.7 L (8.7-10.3) mg/dL Total Bilirubin 3.1 H (0.3-1.2) mg/dL AST (14-35) U/L Total Protein 4.9 L (6.2-8.2) g/dL Albumin 2.6 L (3.80-4.90) g/dL Albumin/Globulin Ratio (1.60-3.17) g/dL Crossmatch 12/25/20 12/25/20 12/25/20 Range/Units 10:17 18:47 22:28 WBC 39.1 H 38.9 H (3.8-10.6) k/uL RBC 3.14 L 3.14 L (4.30-5.90) m/uL Hgb 8.9 L D 9.1 L (13.0-17.5) gm/dL Hct 27.6 L 27.6 L (39.0-53.0) % MCHC (31.0-37.0) g/dL RDW 18.5 H 18.6 H (11.5-15.5) % Neutrophils # (1.3-7.7) k/uL Neutrophils # (Manual) (1.3-7.7) k/uL Monocytes # (0-1.0) k/uL PT (9.9-11.9) sec INR (0.90-1.11) Chloride (98-107) mmol/L Anion Gap (4.00-12.00) mmol/L BUN (9.0-27.0) mg/dL BUN/Creatinine Ratio (12.00-20.00) Ratio Glucose (70-110) mg/dL Plasma Lactic Acid Robert (0.7-2.0) mmol/L Calcium (8.7-10.3) mg/dL Total Bilirubin (0.3-1.2) mg/dL AST (14-35) U/L Total Protein (6.2-8.2) g/dL Albumin (3.80-4.90) g/dL Albumin/Globulin Ratio (1.60-3.17) g/dL Crossmatch See Detail 12/25/20 12/26/20 12/26/20 Range/Units 22:28 04:50 04:50 WBC 44.1 H (3.8-10.6) k/uL RBC 3.05 L (4.30-5.90) m/uL Hgb 8.4 L (13.0-17.5) gm/dL Hct 27.5 L (39.0-53.0) % MCHC 30.5 L (31.0-37.0) g/dL RDW 19.2 H (11.5-15.5) % Neutrophils # 36.1 H (1.3-7.7) k/uL Neutrophils # (Manual) (1.3-7.7) k/uL Monocytes # 5.5 H (0-1.0) k/uL PT 15.7 H 12.4 H (9.9-11.9) sec INR 1.6 H 1.2 H (0.90-1.11) Chloride (98-107) mmol/L Anion Gap (4.00-12.00) mmol/L BUN (9.0-27.0) mg/dL BUN/Creatinine Ratio (12.00-20.00) Ratio Glucose (70-110) mg/dL Plasma Lactic Acid Robert (0.7-2.0) mmol/L Calcium (8.7-10.3) mg/dL Total Bilirubin (0.3-1.2) mg/dL AST (14-35) U/L Total Protein (6.2-8.2) g/dL Albumin (3.80-4.90) g/dL Albumin/Globulin Ratio (1.60-3.17) g/dL Crossmatch 12/26/20 Range/Units 04:50 WBC (3.8-10.6) k/uL RBC (4.30-5.90) m/uL Hgb (13.0-17.5) gm/dL Hct (39.0-53.0) % MCHC (31.0-37.0) g/dL RDW (11.5-15.5) % Neutrophils # (1.3-7.7) k/uL Neutrophils # (Manual) (1.3-7.7) k/uL Monocytes # (0-1.0) k/uL PT (9.9-11.9) sec INR (0.90-1.11) Chloride 110 H (98-107) mmol/L Anion Gap (4.00-12.00) mmol/L BUN 24 H (9.0-27.0) mg/dL BUN/Creatinine Ratio (12.00-20.00) Ratio Glucose 109 H (70-110) mg/dL Plasma Lactic Acid Robert (0.7-2.0) mmol/L Calcium 7.4 L (8.7-10.3) mg/dL Total Bilirubin (0.3-1.2) mg/dL AST (14-35) U/L Total Protein (6.2-8.2) g/dL Albumin (3.80-4.90) g/dL Albumin/Globulin Ratio (1.60-3.17) g/dL Crossmatch Microbiology - Last 24 Hours (Table) 12/23/20 12:30 Blood Culture - Preliminary Blood No Growth after 48 hours 12/23/20 12:15 Blood Culture - Preliminary Blood No Growth after 48 hours Assessment and Plan Assessment: #1. Acute hypoxic respiratory failure related to acute community acquired pneumonia with sepsis, COVID-19 PCR was negative. #2. Lactic acidosis related to sepsis secondary to pneumonia. #3. History of left pneumonectomy related to history of non-small cell lung cancer in 2008. #4. History of COPD. #5. History of sick sinus syndrome with syncopal episodes, status post permanent by the pacemaker implantation in July 2020. #6. Paroxysmal A. fib on Coumadin, currently in paced mechanism. #7. Supratherapeutic INR of 6.0. #8. Ex-smoker, in remission since 2010. #9. History of EtOH with alcoholic peripheral neuropathy, in remission. #10. Hypertension. #11. Coronary artery disease. #12. Hypothyroidism. #13. Gastrointestinal bleed with resultant anemia. Plan: Plan dated 12/24/2020. The patient remains on Zosyn. This Zithromax was discontinued. He currently is on breathing treatments. We will continue to follow make recommendations where appropriate. Clinically he feels a bit better today than he did yesterday. Chest x-ray though, is unchanged. Prognosis is guarded. Plan dated 12/25/2020. The patient's morning blood work was reviewed. Hemoglobin dropped to 7.8. The patient will be transferred to the intensive care unit for closer monitoring. The patient is currently on antibiotic for right-sided pneumonia. Additional recommendations and suggestions are forthcoming. Prognosis is guarded. We will continue to follow make recommendations where appropriate. Plan dated 12/26/2020. The patient did develop rapid ventricular response from his chronic atrial fibrillation. He's currently on a Cardizem drip at 5 mg an hour. In addition, the patient received 1 unit of packed red blood cells for his GI bleed. His current hemoglobin is 8.4. Clinically he looks much more stable. He is also getting saline at 50 mL an hour, 4 L. Saturations are excellent. The patient could probably move out of the intensive care unit in the next 24 hours or so. Blood cultures are currently negative. His pro-calcitonin level was relatively low at 0.13. Time with Patient: Less than 30
--- NOTE | 2020-12-26 12:00 | ECHOF ---
Referral Reason:afib MEASUREMENTS -------- HEIGHT: 177.8 cm WEIGHT: 74.4 kg BP: 102/46 RVIDd: 3.2 cm (< 3.3) IVSd: 1.6 cm (0.6 - 1.1) LVIDd: 3.4 cm (3.9 - 5.3) LVPWd: 1.6 cm (0.6 - 1.1) IVSs: 1.9 cm LVIDs: 2.0 cm LVPWs: 2.0 cm LAESV Index (A-L): 47.21 ml/m Ao Diam: 3.4 cm (2.0 - 3.7) AV Cusp: 1.7 cm (1.5 - 2.6) AV maxP.63 mmHg AV meanP.10 mmHg RAP: 5.00 mmHg RVSP: 39.19 mmHg FINDINGS -------- Atrial fibrillation. This was a technically difficult study with suboptimal views. The left ventricular size is normal. There is severe concentric left ventricular hypertrophy. Ove rall left ventricular systolic function is normal with, an EF between 55 - 60 %. LVOT Obstruction The right ventricle is normal in size. LA is moderately dilated 34-39 ml/m2 The right atrium was not well visualized. 5.0mg of Lumason was utilized for enhancement of images Interatrial and interventricular septum intact. There is mild aortic valve sclerosis. There is no evidence of aortic regurgitation. There is no e vidence of aortic stenosis. [id number] mitral regurgitation is present. Mild tricuspid regurgitation present. There is mild to moderate pulmonary hypertension. The right ventricular systolic pressure, as measured by Doppler, is 39.19mmHg. There is no pulmonic regurgitation present. The aortic root size is normal. IVC Not well visulized. There is no pericardial effusion. CONCLUSIONS -------- 1. The left ventricular size is normal. 2. There is severe concentric left ventricular hypertrophy. 3. Overall left ventricular systolic function is normal with, an EF between 55 - 60 %. 4. LA is moderately dilated 34-39 ml/m2 5. There is mild aortic valve sclerosis. 6. [id number] mitral regurgitation is present. 7. Mild tricuspid regurgitation present. 8. There is mild to moderate pulmonary hypertension. 9. The right ventricular systolic pressure, as measured by Doppler, is 39.19mmHg. [employer] SUPERVISOR: Deysi Prieto RDCS
[2020-12-26] MEDS ORDERED: LIDOCAINE 1% INJ 10MG/ML (20 ML MDV) ONE (12:34)
[2020-12-26] MEDS ORDERED: PROPOFOL 10 MG/ML 20 ML VIAL IV ONE (12:34)
[2020-12-26] MEDS ORDERED: IV FLUID CONTINUATION 1,000 ML IV ONE (12:37)
--- NOTE | 2020-12-26 12:46 | CONS ---
CONSULTATION Mr. Boone is a 75-year-old male who presented to the hospital with symptoms of dyspnea and was diagnosed with pneumonia. He was noted to have GI bleeding yesterday and a syncopal episode when he went to the bathroom. He was transferred to the ICU. He has a known history of left pneumonectomy related non-small cell CA in 2008. He has history of a paroxysmal fibrillation with permanent pacemaker implantation. He has been anticoagulated in the past but he had coagulopathy on presentation. He is awake, alert. He is not quite sure about his event. His pacemaker was placed in July of this year because of sick sinus syndrome and paroxysmal atrial fibrillation. He received biventricular pacing. His echocardiogram in June of this year revealed an ejection fraction of 50-55%. I do not have documentation of obstructive coronary artery disease and the patient denies any history of myocardial infarction or congestive heart failure. He denies any chest pain. He denies any dizziness. He does not remember the event of yesterday. He denies any peripheral edema. No PND. No orthopnea. MEDICATION: His medications at home included Coumadin, Lipitor 80 mg daily, metoprolol succinate 100 mg daily, Antivert, losartan 50 mg daily, levothyroxine 0.05 mg daily and Lasix on a p.r.n. basis. REVIEW OF SYSTEMS: RESPIRATORY SYSTEM: He had dyspnea on exertion. He has cough. He had a prior history pneumonectomy. GI SYSTEM: He had dark stools, workup in progress. SYSTEM: No dysuria or hematuria. NERVOUS SYSTEM: No stroke or seizure. PHYSICAL EXAMINATION: A 75-year-old male, alert, not quite sure of what happened yesterday. His blood pressure is running in the 100s with a heart rate in the 80s. HEAD: Normocephalic. EYES: Sclerae anicteric. NECK: With bruit on the right side. LUNGS: With decreased breath sounds in the bases. No wheezes and a few rhonchi. HEART: Irregular, irregular. S1, S2. No S3. No rub with a systolic murmur. ABDOMEN: Soft, nontender. Positive bowel sounds. No organomegaly. EXTREMITIES: No edema. LAB DATA: Revealed on presentation hemoglobin of 11.2, went down to 7.3. His INR on presentation was 6. His BUN and creatinine 36, 1.25. NT proBNP on admission was 1780. His procalcitonin was 0.13. His troponin of 0.16. His hemoglobin this morning is 8.4[place] [address]. His INR is 1.2. BUN and creatinine 24 and 0.94. Potassium 4.1. IMPRESSION: 1. Respiratory difficulty with pneumonia. 2. Gastrointestinal bleeding. 3. Atrial fibrillation, anticoagulation is on hold. 4. History of permanent pacemaker implantation. 5. Syncope, could be related to orthostatic hypotension. RECOMMENDATION: I will cut down the dose of his losartan at this time because of his blood pressure. I will repeat his echocardiogram with Doppler. The patient is scheduled to undergo further GI workup in relation to his GI bleeding, to further assess his status and guide his treatment. Depending on his progress, further recommendation will be made. Thank you for this consult. We will follow with you. SYED / CHAPIS: [id number] /
--- NOTE | 2020-12-26 13:28 | P.CONS ---
History of Present Illness - Reason for Consult Consult date: 12/26/20 GI bleed, melena Requesting physician: Nat Oglesby - Chief Complaint Shortness of breath - History of Present Illness 75-year-old with a history of coronary artery disease, hypertension, hypothyroidism, alcohol abuse, atrial fibrillation, sick sinus syndrome status post pacemaker insertion and COPD who presented to the hospital with shortness of breath. Patient was diagnosed with pneumonia for which she has been receiving antibiotic therapy both transfer to the ICU after having dark colored bowel movements. INR was supratherapeutic on presentation. He does report frequent use of Aleve therapy at home for treatment of headaches, proximal and 4 times per week. He denies any history of peptic ulcer disease. He denies any prior EGD. He has relieved he has a remote history of colonoscopy in the past but is unclear about the details. He denies any abdominal pain. He was noted to have multiple black tarry bowel movements with acute fall in his hemoglobin down to 7.8 from 9.4 previously. No further signs or symptoms of bleeding. Currently on PPI therapy. Review of Systems REVIEW OF SYSTEMS: CONSTITUTIONAL: Denies any fevers, chills, weight change but he does report fatigue. CARDIOVASCULAR: Denies any chest pain, palpitations high or low blood pressures, but he does have a known history of atrial fibrillation with RVR present on Hospital. RESPIRATORY: Denies any hemoptysis but he is had some shortness of breath and a cough. GENITOURINARY: No dysuria or hematuria. MUSCULOSKELETAL: No focal weakness reported. SKIN: Denies any new rashes or lesions, jaundice or pallor. PSYCHIATRIC: Denies any depression or anxiety, history of alcohol abuse. NEUROLOGY: Denies headache, denies any new focal deficits. EARS/NOSE/THROAT: No recent hearing change, congestion, nasal discharge or sore throat. EYES: No pain in eyes, discharge or change in vision. GASTROINTESTINAL: As per HPI. Past Medical History Past Medical History: Coronary Artery Disease (CAD), Hypertension, Thyroid Disorder Additional Past Medical History / Comment(s): vertigo History of Any Multi-Drug Resistant Organisms: None Reported Past Surgical History: Hernia Repair, Pacemaker Additional Past Surgical History / Comment(s): Left lung removed Past Anesthesia/Blood Transfusion Reactions: No Reported Reaction Type of Cardiac Device: Unknown Device Placement Date:: June, Past Psychological History: No Psychological Hx Reported Smoking Status: Never smoker Past Alcohol Use History: None Reported Past Drug Use History: None Reported - Past Family History Father Additional Family Medical History / Comment(s): Father at age 71 from a myocardial infarction. Mother Additional Family Medical History / Comment(s): Mother at age 92 from old age. Brother(s) Additional Family Medical History / Comment(s): Patient has 3 brothers alive with no major medical problems. One brother is dying from stomach cancer. Sister(s) Additional Family Medical History / Comment(s): Patient has one sister and she is alive. History of hypertension and hyperlipidemia. Medications and Allergies Home Medications Medication Instructions Recorded Confirmed Type Amitriptyline HCl [Elavil] 50 mg PO HS 06/11/20 12/23/20 History Atorvastatin [Lipitor] 80 mg PO HS 06/11/20 12/23/20 History Furosemide [Lasix] 20 mg PO DAILY PRN 06/11/20 12/23/20 History Levothyroxine Sodium [Synthroid] 50 mcg PO DAILY 06/11/20 12/23/20 History Meclizine [Antivert] 12.5 mg PO DAILY 06/11/20 12/23/20 History Potassium Chloride ER [K-Dur 10] 10 meq PO DAILY PRN 06/11/20 12/23/20 History Losartan [Cozaar] 50 mg PO DAILY #30 tab 06/14/20 12/23/20 Rx Warfarin [Coumadin] 5 mg PO SUTH@2100 07/16/20 12/23/20 History Hydrocortisone Cream 1 applic TOPICAL BID PRN 12/23/20 12/23/20 History [Hydrocortisone 2.5% Cream] Magnesium Oxide 400 mg PO DAILY@1300 12/23/20 12/23/20 History Metoprolol Succinate (ER) [Toprol 100 mg PO DAILY 12/23/20 12/23/20 History Xl] Warfarin [Coumadin] 2.5 mg PO MOTUWEFRSA@2100 12/23/20 12/23/20 History Allergies Allergy/AdvReac Type Severity Reaction Status Date / Time No Known Allergies Allergy Verified 12/23/20 10:09 Physical Exam Vitals: Vital Signs Temp Pulse Resp BP Pulse Ox 12/26/20 10:00 80 20 104/46 95 12/26/20 09:00 81 20 102/47 98 12/26/20 08:00 97.6 F 75 22 105/47 96 12/26/20 07:00 80 23 99/66 98 12/26/20 06:00 87 21 102/46 97 12/26/20 05:00 99 25 H 102/54 95 12/26/20 04:00 97.7 F 87 25 H 100/49 94 L 12/26/20 03:00 91 24 102/48 93 L 12/26/20 02:00 87 28 H 103/50 92 L 12/26/20 01:00 89 26 H 106/49 90 L 12/26/20 00:02 97.8 F 87 27 H 100/50 91 L 12/26/20 00:00 90 29 H 96/55 91 L 12/25/20 23:00 94 27 H 111/51 92 L 12/25/20 22:00 93 20 101/58 91 L 12/25/20 21:00 117 H 30 H 113/53 12/25/20 20:00 97.8 F 116 H 26 H 117/50 85 L 12/25/20 19:00 98 29 H 125/62 12/25/20 18:00 144 H 31 H 129/68 94 L 12/25/20 17:19 97.7 F 144 H 20 120/67 96 12/25/20 17:00 142 H 21 115/62 93 L 12/25/20 16:00 98.1 F 141 H 9 L 129/62 90 L 12/25/20 15:03 98.1 F 140 H 20 129/62 12/25/20 15:00 96 23 124/57 91 L 12/25/20 14:33 97.4 F L 91 15 124/57 90 L 12/25/20 14:23 97.9 F 86 12 129/55 91 L 12/25/20 14:00 79 21 113/46 94 L Intake and Output 12/25/20 12/26/20 12/26/20 22:59 06:59 14:59 Intake Total 460 400 250 Output Total 600 200 0 Balance -140 200 250 Intake: IV 150 400 250 Sodium Chloride 0.9% 1, 150 400 250 000 ml @ 999 mls/hr IV . Q1H1M ONE Rx#:[id number] Blood Product 310 Rc As-1 Unit 310 [id number] Output: Urine 600 200 0 Other: Voiding Method Urinal Urinal Urinal # Voids 1 # Bowel Movements 1 1 Weight 74.6 kg On physical examination, patient appears comfortable in no apparent distress. HEAD: Normocephalic, atraumatic. EYES: No scleral icterus. No conjunctival injection. MOUTH: No lesions, tongue midline. NECK: Trachea midline, no gross abnormalities. CHEST: Decreased air entry in all lung boone. HEART: S1-S2 appreciated. ABDOMEN: Soft, obese, nontender to palpation. Bowel sounds are positive. No organomegaly. No guarding or rigidity. EXTREMITIES: Bilateral pedal edema. SKIN: No rashes, no jaundice. NEUROLOGIC: Alert and oriented. No focal deficits. Results CBC & Chem 7: 12/26/20 04:50 12/26/20 04:50 Labs: Abnormal Lab Results - Last 24 Hours (Table) 12/25/20 12/25/20 12/25/20 Range/Units 05:54 10:17 18:47 WBC 39.1 H (3.8-10.6) k/uL RBC 3.14 L (4.30-5.90) m/uL Hgb 8.9 L D (13.0-17.5) gm/dL Hct 27.6 L (39.0-53.0) % MCHC (31.0-37.0) g/dL RDW 18.5 H (11.5-15.5) % Neutrophils # (1.3-7.7) k/uL Monocytes # (0-1.0) k/uL PT (9.0-12.0) sec INR (<1.2) Chloride (98-107) mmol/L Anion Gap 13.10 H (4.00-12.00) mmol/L BUN 36.0 H (9.0-27.0) mg/dL BUN/Creatinine Ratio 32.73 H (12.00-20.00) Ratio Glucose 155 H (70-110) mg/dL Calcium 7.8 L (8.7-10.3) mg/dL Total Bilirubin 3.5 H (0.3-1.2) mg/dL AST 38 H (14-35) U/L Total Protein 5.3 L (6.2-8.2) g/dL Albumin 3.10 L (3.80-4.90) g/dL Albumin/Globulin Ratio 1.41 L (1.60-3.17) g/dL Crossmatch See Detail 12/25/20 12/25/20 12/26/20 Range/Units 22:28 22:28 04:50 WBC 38.9 H 44.1 H (3.8-10.6) k/uL RBC 3.14 L 3.05 L (4.30-5.90) m/uL Hgb 9.1 L 8.4 L (13.0-17.5) gm/dL Hct 27.6 L 27.5 L (39.0-53.0) % MCHC 30.5 L (31.0-37.0) g/dL RDW 18.6 H 19.2 H (11.5-15.5) % Neutrophils # 36.1 H (1.3-7.7) k/uL Monocytes # 5.5 H (0-1.0) k/uL PT 15.7 H (9.0-12.0) sec INR 1.6 H (<1.2) Chloride (98-107) mmol/L Anion Gap (4.00-12.00) mmol/L BUN (9.0-27.0) mg/dL BUN/Creatinine Ratio (12.00-20.00) Ratio Glucose (70-110) mg/dL Calcium (8.7-10.3) mg/dL Total Bilirubin (0.3-1.2) mg/dL AST (14-35) U/L Total Protein (6.2-8.2) g/dL Albumin (3.80-4.90) g/dL Albumin/Globulin Ratio (1.60-3.17) g/dL Crossmatch 12/26/20 12/26/20 Range/Units 04:50 04:50 WBC (3.8-10.6) k/uL RBC (4.30-5.90) m/uL Hgb (13.0-17.5) gm/dL Hct (39.0-53.0) % MCHC (31.0-37.0) g/dL RDW (11.5-15.5) % Neutrophils # (1.3-7.7) k/uL Monocytes # (0-1.0) k/uL PT 12.4 H (9.0-12.0) sec INR 1.2 H (<1.2) Chloride 110 H (98-107) mmol/L Anion Gap (4.00-12.00) mmol/L BUN 24 H (9.0-27.0) mg/dL BUN/Creatinine Ratio (12.00-20.00) Ratio Glucose 109 H (70-110) mg/dL Calcium 7.4 L (8.7-10.3) mg/dL Total Bilirubin (0.3-1.2) mg/dL AST (14-35) U/L Total Protein (6.2-8.2) g/dL Albumin (3.80-4.90) g/dL Albumin/Globulin Ratio (1.60-3.17) g/dL Crossmatch Microbiology - Last 24 Hours (Table) 12/23/20 12:30 Blood Culture - Preliminary Blood No Growth after 48 hours 12/23/20 12:15 Blood Culture - Preliminary Blood No Growth after [address] scan - chest: report reviewed (Computed tomography scan of the chest re viewed.) Assessment and Plan (1) Melena Narrative/Plan: 75 with a medical history significant for COPD, atrial fibrillation, alcohol abuse, hypothyroidism who presented with shortness of breath and is being treated for pneumonia. Patient had supratherapeutic INR presentation. Multiple melanotic bowel movements and acute fall in hemoglobin. Suspicion was for upper GI bleed and patient has been scheduled for EGD. Unclear etiology, may be related to gastritis, esophagitis, peptic ulcer disease, AVM or other etiology. Current Visit: Yes Status: Acute Code(s): K92.1 - MELENA SNOMED Code(s): 6375764 (2) Anemia associated with acute blood loss Current Visit: Yes Status: Acute Code(s): D62 - ACUTE POSTHEMORRHAGIC ANEMIA SNOMED Code(s): 102132673 (3) Pneumonia Current Visit: Yes Status: Acute Code(s): J18.9 - PNEUMONIA, UNSPECIFIED ORGANISM SNOMED Code(s): 610976818 (4) Atrial fibrillation with RVR Current Visit: No Status: Acute Code(s): I48.91 - UNSPECIFIED ATRIAL FIBRILLATION SNOMED Code(s): 417257150453917 Plan: Supportive care Nothing by mouth Continue Protonix therapy twice daily Continue monitor hemoglobin and hematocrit and transfuse as needed Hold any anticoagulation therapy at this time Avoid NSAID use with the patient reported frequent Aleve use in the outpatient setting Plan for EGD for further evaluation with all of the risks, benefits and possible complications explained to the patient length with all of his questions answered to his satisfaction Thank you for allowing us to participate in the care of the patient
--- NOTE | 2020-12-26 13:33 | P.PCN ---
Date of Procedure: 12/26/20 Description of Procedure: BRIEF HISTORY: 75-year-old with a history of coronary artery disease, hypertension, hypothyroidism, alcohol abuse, atrial fibrillation, sick sinus syndrome status post pacemaker insertion and COPD who presented to the hospital with shortness of breath. Patient was diagnosed with pneumonia for which she has been receiving antibiotic therapy both transfer to the ICU after having dark colored bowel movements. INR was supratherapeutic on presentation. He does report frequent use of Aleve therapy at home for treatment of headaches, proximal and 4 times per week. He denies any history of peptic ulcer disease. He denies any prior EGD. He has relieved he has a remote history of colonoscopy in the past but is unclear about the details. He denies any abdominal pain. He was noted to have multiple black tarry bowel movements with acute fall in his hemoglobin down to 7.8 from 9.4 previously. No further signs or symptoms of bleeding. Currently on PPI therapy. PROCEDURE PERFORMED: Esophagogastroduodenoscopy with biopsy. PREOPERATIVE DIAGNOSIS: Melena, anemia of acute blood loss. ESTIMATED BLOOD LOSS: Minimal. IV sedation per anesthesia. PROCEDURE: After informed consent was obtained, the patient was brought into the endoscopy unit. IV sedation was administered by Anesthesia under continuous monitoring. Initially the Olympus GIF-190 video endoscope was inserted into the mouth. Esophagus intubated without any difficulty. It was gradually advanced into the stomach and duodenum and carefully examined. The bulb and the second part of the duodenum appeared normal, except for some mild scattered erythema suggestive of mild duodenitis with biopsies taken. The scope at this time was withdrawn to the stomach, adequately insufflated with air, and upon careful examination, mucosa of the antrum, body, cardia and the fundus appeared normal, except for some mild scattered erythema with superficial erosions in the antrum and body suggestive of moderate gastritis with biopsies taken. The scope was then withdrawn into the esophagus. The GE junction was located at 36 cm from the incisors, with a 4 cm hiatal hernia noted. The esophagus appeared normal. There were no erosions or ulcerations seen and the patient tolerated the procedure well. IMPRESSION: 1. Moderate gastritis. 2. Mild duodenitis. 3. Moderate size hiatal hernia. 4. Biopsies of the duodenum, antrum and body. RECOMMENDATIONS: The findings of this examination were discussed with the patient and his sister. Okay to resume diet. Okay to resume medications. Continue to hold anticoagulation therapy until hemoglobin stabilizes. Continue Protonix twice daily. Avoid NSAID use. No plan for further endoscopic evaluation at this time, the patient has further fall in hemoglobin or symptoms we'll reevaluate at that time.
[2020-12-26] MEDS: LOSARTAN 25 MG TAB PO SCH (15:55)
[2020-12-26] MEDS: MAGNESIUM OXIDE 400 MG TAB PO SCH (16:17)
[2020-12-26] MEDS: DILTIAZEM 125 MG in SODIUM CHLORIDE 0.9% 100 ML IV SCH (18:55)
[2020-12-26] MEDS: ATORVASTATIN 80 MG TAB PO SCH (20:24)
[2020-12-26] MEDS: AMITRIPTYLINE HCL 50 MG TAB PO SCH (20:24)
[2020-12-27 05:47] LABS: African American GFR (CKD) >90 (>60 ml/min/1.73 sqM); Anion Gap 10 mmol/L; Blood Urea Nitrogen 27 mg/dL (9-20); Carbon Dioxide 20 mmol/L (22-30); Chloride 108 mmol/L (98-107); Glucose 112 mg/dL (74-99); Non-African American GFR(CKD) 86 (>60 ml/min/1.73 sqM); Potassium 3.8 mmol/L (3.5-5.1); Sodium 138 mmol/L (137-145)
[2020-12-27 06:01] LABS: Anisocytosis Slight; Basophils # (A) 0.1 k/uL (0-0.2); Basophils % (A) 0 %; Eosinophils # (A) 0.2 k/uL (0-0.7); Eosinophils % (A) 1 %; HCT 25.2 % (39.0-53.0); Hypochromasia Marked; Lymphocytes # (A) 1.7 k/uL (1.0-4.8); Lymphocytes % (A) 5 %; MCHC 31.6 g/dL (31.0-37.0); MCV 91.7 fL (80.0-100.0); Mean Platelet Volume 9.8; Monocytes # (A) 4.1 k/uL (0-1.0); Monocytes % (A) 13 %; Neutrophils % (A) 79 %; Platelet Count 278 k/uL (150-450); RBC 2.75 m/uL (4.30-5.90); RDW 19.2 % (11.5-15.5); WBC 31.5 k/uL (3.8-10.6)
[2020-12-27] MEDS: LEVOTHYROXINE 50 MCG TAB PO SCH ×2 (06:09→06:10)
[2020-12-27 07:20] LABS: Polychromasia Present
[2020-12-27 07:21] LABS: Poikilocytosis (M) Present
[2020-12-27] MEDS ORDERED: Potassium Replacement Protocol 1 EACH MISC MISCELLANE PRN (07:27)
[2020-12-27] MEDS ORDERED: POTASSIUM CHLORIDE ER 20 MEQ TAB.ER PO SCH (08:00)
--- NOTE | 2020-12-27 08:49 | PN ---
PROGRESS NOTE Mr. Boone is a 75-year-old male who presented with dyspnea and pneumonia, had an episode of GI bleeding and subsequent syncopal episode. He had a history of pneumonectomy and non-small cell CA, history of paroxysmal fibrillation, permanent pacemaker implantation. He is feeling well this morning. He denies any chest pain. His breathing is stable. He denies any dizziness or palpitation. He denies any nausea. He underwent endoscopy yesterday by Dr. Esquivel. He was found to have moderate gastritis, mild duodenitis with moderate-sized hiatal hernia. He continues to be at this time on Lipitor 80 mg daily, insulin, IV Cardizem, losartan 25 mg daily, metoprolol succinate 100 mg daily. PHYSICAL EXAMINATION: Blood pressure 119/50 with heart rate in the 90s. Lungs no wheezes with decreased air exchange. Heart S1, S2. No S3. No rub with a systolic murmur. Abdomen: Soft nontender. Extremities: No edema. LAB DATA: BUN and creatinine of 27 and 0.83, potassium 3.8. INR is 1.2. He had an echocardiogram performed yesterday revealed ejection fraction 55-60 percent. 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 IMPRESSION: 1. Gastrointestinal bleeding, stable. 2. Atrial fibrillation, anticoagulation on hold for now. 3. Status post permanent pacemaker implantation. 4. Syncope probable orthostatic hypertension. 5. Dyspnea. 6. History of a lobectomy and possible pneumonia. RECOMMENDATIONS: From the cardiac standpoint, we will continue on the present therapy. I will stop his IV Cardizem. Follow his heart rate and depending on the trend, further adjustment will be made. MMODL / IJN: [id number] /
[2020-12-27] MEDS: PIPERACILLIN-TAZOBACTAM 3.375 GM in SODIUM CHLORIDE 0.9% 100 ML IVPB SCH ×3 (09:07→23:16)
[2020-12-27] MEDS: METOPROLOL SUCCINATE (ER) 100 MG TAB.ER.24H PO SCH (09:08)
[2020-12-27] MEDS: LOSARTAN 25 MG TAB PO SCH (09:08)
[2020-12-27] MEDS: MECLIZINE 12.5 MG TAB PO SCH (09:08)
[2020-12-27] MEDS: PANTOPRAZOLE 40 MG/10 ML VIAL IVP SCH ×2 (09:08→21:08)
--- NOTE | 2020-12-27 09:08 | XR ---
EXAMINATION TYPE: XR chest 1V portable DATE OF EXAM: 12/27/2020 COMPARISON: 12/24/2020 HISTORY: Dyspnea TECHNIQUE: Single frontal view of the chest is obtained. FINDINGS: Opacification of the left hemithorax with shift of the cardiomediastinal silhouette to the left appea rs similar to the prior examination. Slight improved aeration of the right lung. Pacer is unchanged. IMPRESSION: Slight improved aeration of the right lung. Otherwise, no significant change since the prior exam.
--- NOTE | 2020-12-27 10:32 | P.PN ---
Subjective Progress Note Date: 12/27/20 Principal diagnosis: History of lung cancer, pneumonia, GI bleeding This is a 75-year-old white male patient of Dr. Oglesby with past medical history of COPD, former smoker, non-small cell lung cancer diagnosed in 2008, status post left pneumonectomy, remote history of alcohol abuse, and alcoholic peripheral neuropathy, hypertension, CAD, paroxysmal A. fib and hypothyroidism. His left pneumonectomy was performed by Dr. Ho. 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 Patient also recently had a permanent biventricular pacemaker inserted in July 2020 presenting with syncope and sick sinus syndrome, and this was done by Dr. Terry Costello. Patient had been sick at home for 3 or 4 days with worsening dyspnea, cough, and phlegm production. No chest pain, no hemoptysis, no leg pain or leg swelling, he did complain of fever, sister is at the bedside and the patient is hard of hearing and some of the history was provided by his sister. She stated that patient had been sick for close to one week. Chest x-ray in emergency department showed new right-sided patchy airspace disease, and complete opacification of left hemithorax status post left pneumonectomy. Patient is afebrile on presentation, his pulse ox is 88% on room air, patient is tachycardic, short of breath, his lab work showed a white blood cell count of 21.2, hemoglobin of 11.2, INR is 6.0, patient is on Coumadin for history of paroxysmal atrial fibrillation, his d-dimer was 0.80, electrolytes were within normal limits, B1 is 36 creatinine is 1.25, plasma lactic acid was 3.3, proBNP was 1780, troponin was 0.016, COVID-19 PCR test was negative. Patient was satting 98% on 2 L, is awake and alert, oriented 3, there is to be in no acute distress, KG showed sinus tachycardia with a rate of 122 BPM, patient was started on IV hydration with 0.9 normal saline infusing at 130 ML per hour, Zosyn and azithromycin were started for antibiotic coverage, patient was given a breathing treatment. Progress note dated 12/24/2020. This is a 75-year-old male who was admitted with a diagnosis of acute hypoxemic respiratory failure secondary to community-acquired pneumonia involving the right lung. The patient has a prior history of left pneumonectomy for non-small cell lung cancer in 2008. He currently does not smoke. He is feeling better. He is less short of breath. He's currently on oxygen therapy at 3 L. In addition, he has a history of hypothyroidism, CAD, hypertension, alcohol abuse with alcoholic peripheral neuropathy, paroxysmal atrial fibrillation, sick sinus syndrome, status post pacemaker implantation, and of course COPD. No new labs today. Chest x-ray from today continues to show extensive airspace disease in the right lung. The left lung is opacified secondary to previous left pneumonectomy. Progress note dated 12/25/2020. This is a 75-year-old male, that was seen in room 462 today. He was admitted with a diagnosis of acute hypoxemic respiratory failure secondary to community- acquired pneumonia involving the right lung. The patient has a previous history of left pneumonectomy done by Dr. Ho, for non-small cell lung cancer. This was done in 2008. Currently does not smoke. Although yesterday was feeling better from the pulmonary standpoint, apparently last night, he became very weak. He also became more short of breath and required more oxygen. Apparently he had a syncopal episode or an episode of low blood pressure. He also had 2 bowel movements which were black, and there were concerns that the patient was deteriorating, with a GI bleed. The primary service asked whether or not we could transfer the patient to the intensive care unit. We agreed to. The patient does have a history of hypothyroidism, CAD, hypertension, alcohol abuse, with alcoholic peripheral neuropathy, paroxysmal atrial relation, sick sinus syndrome, status post pacemaker insertion, and COPD. Today's labs include a PTT of 47.9 and an INR of 5.0. His hemoglobin is down to 7.8 from 9.4. White count is 36.71. Hematocrit 26.3, platelet count 265,000. Sodium potassium chloride CO2 all normal. Anion gap normal. BUN 35, with a creatinine 1.12. Progress note dated 12/26/2020. 75-year-old male seen today in the ICU, room 261. He was transferred there yesterday. The patient developed a GI bleed. More recently, he developed atrial fibrillation with RVR. The patient is currently on a Cardizem drip at 5 mg an hour, saline at 50 mL an hour, and oxygen at 4 L by nasal cannula. The patient did receive 1 unit of packed red blood cells. Today's hemoglobin was 8.4. He clinically is feeling much better and actually looks much better. White count 44.1, hemoglobin 8.4, hematocrit 27.5, platelet count 285,000. ET 12.4, INR 1.2. Sodium 141, potassium 4.1, chlorides 110, CO2 22, anion gap 9, BUN 24, with a creatinine 0.94. Chest x-ray from the , reveals an opacified left hemithorax consistent with previous left pneumonectomy, and patchy infiltrates in the right lung consistent with pneumonia. On 12/28/2019 with patient seen in follow-up in the intensive care unit, he is awake and alert, resting comfortably in bed, currently on 4 L of oxygen with a pulse ox of 96%, he is breathing comfortably, he appears to be in no acute dist ress, he is answering questions appropriately, he is oriented 3. He is on 0.9 normal seen at 20 ML per hour, Cardizem drip is currently is at 5 mg per hour, he is currently in the paced rhythm with underlying atrial fibrillation and the rate is currently controlled at 85-96 BPM. Blood pressure is stable, cardiology is following, his anticoagulation is currently on hold in view of his recent GI bleeding, overnight he had 2 black bowel movements per the nursing staff, abdomen is soft, no complaints of abdominal pain, no nausea or vomiting, today's hemoglobin is 8.0. Patient did receive 1 unit of packed red blood cells this admission, his last INR was yesterday of 1.2. Coumadin is on hold. She remains on Protonix 40 mg twice daily, he remains on Zosyn for possibility of pneumonia, on today's labs his white count is improving, he has had no fever or chills overnight, his breathing overall has improved, no complaints of chest discomfort. Objective - Vital Signs Vital signs: Vital Signs Temp 97.8 F 12/27/20 04:00 Pulse 93 12/27/20 07:00 Resp 16 12/27/20 07:00 BP 119/49 12/27/20 07:00 Pulse Ox 96 12/27/20 07:00 Intake & Output 12/26/20 12/27/20 12/27/20 18:59 06:59 18:59 Intake Total 1642.083 545 Output Total 200 200 Balance 1442.083 345 Weight 75.6 kg Intake: IV 800 545 .9nS 320 Piperacillin-Tazobactam 3 225 .375 gm In Sodium Chloride 0.9% 100 ml @ 25 mls/hr IVPB Q8HR [facility] Rx# :[id number] Sodium Chloride 0.9% 1, 250 000 ml @ 999 mls/hr IV . Q1H1M ONE Rx#:[id number] Intake, IV Titration 122.083 Amount Diltiazem 125 mg In 122.083 Sodium Chloride 0.9% 100 ml @ 5 MG/HR 5 mls/hr IV .Q24H [facility] Rx#:[id number] Oral 720 Output: Urine 200 200 Other: Voiding Method Urinal Urinal # Voids 2 # Bowel Movements 1 1 - Exam GENERAL EXAM: Alert, very pleasant, hard of hearing, 75-year-old white male, on 4 L of oxygen, with pulse ox of 96% comfortable in no apparent distress. HEAD: Normocephalic/atraumatic. EYES: Normal reaction of pupils, equal size. Conjunctiva pink, sclera white. NOSE: Clear with pink turbinates. THROAT: No erythema or exudates. NECK: No masses, no JVD, no thyroid enlargement, no adenopathy. CHEST: No chest wall deformity. Symmetrical expansion. LUNGS: Equal air entry with no crackles, wheeze, rhonchi or dullness. CVS: Irregular rate and rhythm, normal S1 and S2, no gallops, no murmurs, no rubs ABDOMEN: Soft, nontender. No hepatosplenomegaly, normal bowel sounds, no guarding or rigidity. EXTREMITIES: No clubbing, no edema, no cyanosis, 2+ pulses and upper and lower extremities. MUSCULOSKELETAL: Muscle strength and tone normal. SPINE: No scoliosis or deformity SKIN: No rashes CENTRAL NERVOUS SYSTEM: Alert and oriented -3. No focal deficits, tone is normal in all 4 extremities. PSYCHIATRIC: Alert and oriented -3. Appropriate affect. Intact judgment and insight. - Labs CBC & Chem 7: 12/27/20 04:37 12/27/20 04:37 Labs: Abnormal Lab Results - Last 24 Hours (Table) 12/27/20 12/27/20 Range/Units 04:37 04:37 WBC 31.5 H (3.8-10.6) k/uL RBC 2.75 L (4.30-5.90) m/uL Hgb 8.0 L (13.0-17.5) gm/dL Hct 25.2 L (39.0-53.0) % RDW 19.2 H (11.5-15.5) % Neutrophils # 25.0 H (1.3-7.7) k/uL Monocytes # 4.1 H (0-1.0) k/uL Chloride 108 H (98-107) mmol/L Carbon Dioxide 20 L (22-30) mmol/L BUN 27 H (9-20) mg/dL Glucose 112 H (74-99) mg/dL Calcium 7.0 L (8.4-10.2) mg/dL Microbiology - Last 24 Hours (Table) 12/23/20 12:30 Blood Culture - Preliminary Blood No Growth after 72 hours 12/23/20 12:15 Blood Culture - Preliminary Blood No Growth after 72 hours Assessment and Plan Plan: Assessment: #1. Acute GI blood loss anemia, requiring transfusion with 1 unit of packed red blood cells, status post EGD on 12/26/2020 showing moderate gastritis, and mild duodenitis, moderate-sized hiatal hernia #2. Acute hypoxic respiratory failure related to acute community acquired pneumonia with sepsis, COVID-19 PCR was negative #3. Lactic acidosis related to sepsis secondary to pneumonia, improved #4. History of left pneumonectomy related to history of non-small cell lung cancer in 2008 #5. History of COPD #6. History of sick sinus syndrome with syncopal episodes, status post permanent by the pacemaker implantation in July 2020 #7. Paroxysmal A. fib on Coumadin, currently in paced mechanism #8. Supratherapeutic INR of 6.0, currently down to 1.2, Coumadin is on hold #9. Ex-smoker, in remission since 2010 #10. History of EtOH with alcoholic peripheral neuropathy, in remission #11. Hypertension #12. Coronary artery disease #13. Hypothyroidism Plan: Hemodynamically patient is stable Today's labs have been noted Vital signs are stable Not requiring any vasopressors Continue current antibiotics Continue Protonix Monitor for any recurrence of GI bleeding Coumadin remains on hold Stable for transfer out of intensive care unit to 3 . [facility] bed I performed a history & physical examination of the patient and discussed their management with my nurse practitioner, Marycarmen Lucero. I reviewed the nurse practitioner's note and agree with the documented findings and plan of care. Lung sounds are positive for diffuse wheezes throughout the lung boone. The findings and the impression was discussed with the patient. I attest to the documentation by the nurse practitioner. Time with Patient: Less than 30
[2020-12-27] MEDS: MAGNESIUM OXIDE 400 MG TAB PO SCH (12:48)
--- NOTE | 2020-12-27 14:30 | P.HPIM ---
History of Present Illness H&P Date: 12/23/20 HISTORY OF PRESENT ILLNESS: This is a 75-year-old male patient of mine with past medical history of non-small cell lung cancer diagnosed in 2009 status post lobectomy, remote history of tobacco use, remote history of alcohol abuse, alcoholic peripheral neuropathy, hypertension, coronary artery disease, paroxysmal atrial fibrillation, hypothyroidism. Patient was last seen in the office on 09/12 and no medication changes were made at that time. The patient developed shortness of breath that had been going on for about one week and worsening with exertion. No significant cough. Patient presented to [facility] emergency center he was found to be afebrile but heart rate was 112-128, blood pressure 91/60 was repeated 136/72, pulse 88% on room air. EKG was sinus tachycardia. WBC 21.2, hemoglobin 11.2, platelet count 229. Platelets were no rmal. BUN 36 and creatinine 1.25. Blood sugar 136. INR 6.0. Coronavirus not detected. Lactic acid 3.3 troponin negative. Liver function tests were normal, bilirubin 2.9. ProBNP 1780. Chest x-ray shows right-sided patchy airspace disease. Complete opacification of the left hemithorax status post pacer placement. CT angiogram of the chest reveals groundglass opacities in the right lung. Pulmonary edema and atypical pneumonia should be considered. Patient admitted to the [facility] floor consult requested with pulmonary medicine REVIEW OF SYSTEMS: Constitutional: No documented fever, no chills, no night sweats. No weight change. No weakness, fatigue or lethargy. No daytime sleepiness. EENT: No headache. No blurred vision or double vision, no loss of vision. No loss of Hearing, no ringing in the ears, no dizziness. No nasal drainage or congestion. No epistaxis. No sore throat. Lungs: Reports shortness of breath, reports cough, reports sputum production. Reports wheezing. Reports dyspnea with activity. Cardiovascular: No chest pain, no lower extremity edema. No palpitations. No paroxysmal nocturnal dyspnea. No orthopnea. No lightheadedness or dizziness. No syncopal episodes. Abdominal: Reports abdominal pain. No nausea, vomiting. No diarrhea. No constipation. No bloody or tarry stools reports loss of appetite. Genitourinary: No dysuria, increased frequency, urgency. No urinary retention. Musculoskeletal: No myalgias. No muscle weakness, no gait dysfunction, no frequent falls. No back pain. No neck pain. Integumentary: No wounds, no lesions. No rash or pruritus. No unusual bruising. No change in hair or nails. Neurologic: No aphasia. No facial droop. No change in mentation. No head injury. No headache. No paralysis. No paresthesia. Psychiatric: No depression. No anxiety. No mood swings. Endocrine: No abnormal blood sugars. No weight change. PAST MEDICAL HISTORY: Hypertension Hyperlipidemia Supraventricular tachycardia Malignant neoplasm of the prostate Neoplasm of the left bronchus Paroxysmal atrial fibrillation on Coumadin Alcoholic peripheral neuropathy Sick sinus syndrome Hypothyroidism PAST SURGICAL HISTORY: Left and right groin hernia repair Lung left resection in 2008 Permanent pacemaker 07/28 SOCIAL HISTORY: Patient has history of smoking and quit 5-10 years ago. No current alcohol use, illicit drug use, marijuana use. Patient does have history of alcohol abuse in the past. FAMILY HISTORY: Father at age 71 from a myocardial infarction. Mother at age 92 from old age. Patient has 3 brothers and 2 brothers are living with no major medical problems, one brother from stomach cancer. Patient has one sister living with history of hypertension hyperlipidemia. PHYSICAL EXAMINATION: General: This is a 75-year-old male resting on the ER stretcher and appears to be comfortable and in no acute distress HEENT: Head is atraumatic, normocephalic, pupils were equal round reactive to light and recommendation, extraocular muscle movement were intact, sclera nonicteric, conjunctivae were pale, mucous membranes of the mouth are somewhat dry. Neck: Supple, no JVP, normal carotid upstroke bilaterally, no lymphadenopathy. Chest: Decreased breath sounds at the bases, few rhonchi, no wheezes, no chest wall tenderness, no intercostal retractions. Heart: First heart sound is normal, second heart sounds normal Abdomen: Soft, nontender, nondistended, positive bowel sounds. Extremities: There is no edema no calf tenderness DP +2 bilaterally. Neurologic examination: Patient is awake alert and oriented 3, cranial nerves II-12 appear grossly intact, muscle power were 5 out of 5 in upper extremities and 5 out of 5 in bilateral lower extremities, deep tendon reflexes normal bilaterally. ASSESSMENT AND PLAN: 1. Acute hypoxic respiratory failure secondary to pneumonia and sepsis, possible gram-negative pneumonia. Consult with pulmonary medicine, continue Zosyn and azithromycin, nebulizer treatments every 4 hours and as needed, blood cultures and sputum culture in progress. 2. Lactic acidosis secondary to sepsis. Continue IV fluids. 3. History of non-small cell lung cancer in 2008 status post left pneu monectomy. 4. Hypercoagulopathy secondary to sepsis and Coumadin use. Coumadin on hold. 5. Hypertension. Continue losartan 50 mg daily, Toprol-XL 100 mg daily 6. Hyperlipidemia. Continue atrial his statin 80 mg at bedtime. 7. Supraventricular tachycardia secondary to sepsis. Treat underlying cause. 8. Paroxysmal atrial fibrillation on chronic Coumadin. Hold Coumadin. Continue 9. History of sick sinus syndrome status post pacemaker implantation, stable. 10. Alcoholic peripheral neuropathy. Continue amitriptyline 50 mg at bedtime 11. Hypothyroidism. Continue levothyroxine 50 g daily. 12. GI prophylaxis. Protonix 40 mg daily. 12. DVT prophylaxis. Hold Coumadin due to hypercoagulopathy. CODE STATUS: Full code Patient admitted to the hospital for a minimum of 2 nights day. Past Medical History Past Medical History: Coronary Artery Disease (CAD), Hypertension, Thyroid Disorder Additional Past Medical History / Comment(s): vertigo History of Any Multi-Drug Resistant Organisms: None Reported Past Surgical History: Hernia Repair, Pacemaker Additional Past Surgical History / Comment(s): Left lung removed Past Anesthesia/Blood Transfusion Reactions: No Reported Reaction Past Psychological History: No Psychological Hx Reported Smoking Status: Never smoker Past Alcohol Use History: None Reported Past Drug Use History: None Reported - Past Family History Father Additional Family Medical History / Comment(s): Father at age 71 from a myocardial infarction. Mother Additional Family Medical History / Comment(s): Mother at age 92 from old age. Brother(s) Additional Family Medical History / Comment(s): Patient has 3 brothers alive with no major medical problems. One brother is dying from stomach cancer. Sister(s) Additional Family Medical History / Comment(s): Patient has one sister and she is alive. History of hypertension and hyperlipidemia. Medications and Allergies Home Medications Medication Instructions Recorded Confirmed Type Amitriptyline HCl [Elavil] 50 mg PO HS 06/11/20 12/23/20 History Atorvastatin [Lipitor] 80 mg PO HS 06/11/20 12/23/20 History Furosemide [Lasix] 20 mg PO DAILY PRN 06/11/20 12/23/20 History Levothyroxine Sodium [Synthroid] 50 mcg PO DAILY 06/11/20 12/23/20 History Meclizine [Antivert] 12.5 mg PO DAILY 06/11/20 12/23/20 History Potassium Chloride ER [K-Dur 10] 10 meq PO DAILY PRN 06/11/20 12/23/20 History Losartan [Cozaar] 50 mg PO DAILY #30 tab 06/14/20 12/23/20 Rx Warfarin [Coumadin] 5 mg PO SUTH@2100 07/16/20 12/23/20 History Hydrocortisone Cream 1 applic TOPICAL BID PRN 12/23/20 12/23/20 History [Hydrocortisone 2.5% Cream] Magnesium Oxide 400 mg PO DAILY@1300 12/23/20 12/23/20 History Metoprolol Succinate (ER) [Toprol 100 mg PO DAILY 12/23/20 12/23/20 History Xl] Warfarin [Coumadin] 2.5 mg PO MOTUWEFRSA@2100 12/23/20 12/23/20 History Allergies Allergy/AdvReac Type Severity Reaction Status Date / Time No Known Allergies Allergy Verified 12/23/20 10:09 Physical Exam Vitals: Vital Signs Temp Pulse Resp BP Pulse Ox 12/23/20 18:54 85 18 137/57 96 12/23/20 15:09 105 H 18 12/23/20 15:01 105 H 18 98 12/23/20 14:52 98 18 126/93 97 12/23/20 12:24 112 H 18 136/72 98 12/23/20 10:26 88 L 12/23/20 10:06 98.2 F 128 H 18 91/60 91 L Intake and Output 12/23/20 12/23/20 12/23/20 06:59 14:59 22:59 Other: Weight 69.853 kg Results CBC & Chem 7: 12/27/20 04:37 12/27/20 04:37 Labs: Abnormal Lab Results - Last 24 Hours (Table) 12/23/20 12/23/20 12/23/20 Range/Units 10:38 10:38 10:38 WBC 21.2 H (3.8-10.6) k/uL RBC 4.16 L (4.30-5.90) m/uL Hgb 11.2 L (13.0-17.5) gm/dL Hct 33.5 L (39.0-53.0) % RDW 17.8 H (11.5-15.5) % Neutrophils # (Manual) 16.75 H (1.3-7.7) k/uL Monocytes # (Manual) 3.39 H (0-1.0) k/uL PT 58.1 H (9.0-12.0) sec INR 6.0 H* (<1.2) APTT 48.9 H (22.0-30.0) sec D-Dimer 0.80 H (<0.60) mg/L FEU BUN 36 H (9-20) mg/dL Glucose 136 H (74-99) mg/dL Plasma Lactic Acid Robert (0.7-2.0) mmol/L Total Bilirubin 2.9 H (0.2-1.3) mg/dL 12/23/20 Range/Units 10:38 WBC (3.8-10.6) k/uL RBC (4.30-5.90) m/uL Hgb (13.0-17.5) gm/dL Hct (39.0-53.0) % RDW (11.5-15.5) % Neutrophils # (Manual) (1.3-7.7) k/uL Monocytes # (Manual) (0-1.0) k/uL PT (9.0-12.0) sec INR (<1.2) APTT (22.0-30.0) sec D-Dimer (<0.60) mg/L FEU BUN (9-20) mg/dL Glucose (74-99) mg/dL Plasma Lactic Acid Robert 3.3 H* (0.7-2.0) mmol/L Total Bilirubin (0.2-1.3) mg/dL
--- NOTE | 2020-12-27 14:49 | PN ---
PROGRESS NOTE DATE OF SERVICE: 12/27/2020 The patient is a 75-year-old pleasant white male who is being followed for anemia. He underwent an upper endoscopy by Dr. Esquivel which revealed moderate-sized hiatal hernia with mild gastritis and duodenitis. The patient dropped his hemoglobin during this hospitalization to 7.8 g/dL. He still continues to have black tarry stools. He denies any abdominal pain. No nausea, no vomiting. Last colonoscopy was several years ago. PHYSICAL EXAMINATION: He appears comfortable. No apparent distress Vital signs are stable. Blood pressure is 112/86, pulse rate 104, and temperature 98.6. HEENT examination unremarkable. Conjunctivae pink. Sclerae anicteric. Oral cavity, no lesions. NECK: No JVD or lymph node enlargement. CHEST: Clear to auscultation. HEART: Regular rate and rhythm. ABDOMEN: Soft. Bowel sounds are positive. No organomegaly. EXTREMITIES: Some bruises noted on the upper extremities. NEUROLOGIC: Alert and oriented x3. No focal deficits. LABS: From today hemoglobin is 8 g/dL. IMPRESSION: 1. Symptomatic anemia/GI bleed status post EGD yesterday by Dr. Esquivel which revealed a moderate-sized hiatal hernia and an antral gastritis as well as duodenitis. The patient continues to have dark colored stools. Remote history of colonoscopy more than 10 years ago. Hemoglobin stable at 8 g/dL. 2. Atrial fibrillation on Coumadin which is currently on hold. INR is normal. 3. Community-acquired pneumonia on broad-spectrum antibiotics. 4. History of hypertension, hypothyroidism, and coronary artery disease. RECOMMENDATIONS: 1. Continue to monitor daily. 2. Proceed with colonoscopy on Wednesday. 3. Continue to hold Coumadin for now. 4. Monitor CBC daily. 5. Continue broad-spectrum antibiotics. 6. We will follow with you closely. MMODL / IJN: [id number] /
--- NOTE | 2020-12-27 15:22 | P.PN ---
Subjective Progress Note Date: 12/24/20 HISTORY OF PRESENT ILLNESS: This is a 75-year-old male patient of [facility] with past medical history of non-small cell lung cancer diagnosed in 2008 status post lobectomy, remote history of tobacco use, remote history of alcohol abuse, alcoholic peripheral neuropathy, hypertension, coronary artery disease, paroxysmal atrial fibrillation, hypothyroidism. Patient was last seen in the office on 09/12 and no medication changes were made at that time. The patient developed shortness of breath that had been going on for about one week and worsening with exertion. No significant cough. Patient presented to [facility] emergency center he was found to be afebrile but heart rate was 112-128, blood pressure 91/60 was repeated 136/72, pulse 88% on room air. EKG was sinus tachycardia. WBC 21.2, hemoglobin 11.2, platelet count 229. Platelets were normal. BUN 36 and creatinine 1.25. Blood sugar 136. INR 6.0. Coronavirus not detected. Lactic acid 3.3 troponin negative. Liver function tests were normal, bilirubin 2.9. ProBNP 1780. Chest x-ray shows right-sided patchy airspace disease. Complete opacification of the left hemithorax status post p acer placement. CT angiogram of the chest reveals groundglass opacities in the right lung. Pulmonary edema and atypical pneumonia should be considered. Patient admitted to the [facility] floor consult requested with pulmonary medicine 12/24: Patient states that his cough and shortness of breath are improving. He is still on O2 at 2 L with pulse ox of 94-98%. His been afebrile. Heart rate 107, blood pressure 114/56. Repeat blood work reveals WBC 37.1, hemoglobin 9.4, platelet count 251. Repeat INR 6.7. Repeat chest x-ray reveals no significant change. Patient has been followed by pulmonary medicine with recommendations to continue Zosyn and nebulizer treatments. manager equity has ordered ordered rollator for the patient. REVIEW OF SYSTEMS: Constitutional: No documented fever, no chills, no night sweats. No weight change. No weakness, fatigue or lethargy. No daytime sleepiness. EENT: No headache. No blurred vision or double vision, no loss of vision. No loss of Hearing, no ringing in the ears, no dizziness. No nasal drainage or congestion. No epistaxis. No sore throat. Lungs: Reports shortness of breath, reports cough, reports sputum production. Reports wheezing. Reports dyspnea with activity. Cardiovascular: No chest pain, no lower extremity edema. No palpitations. No paroxysmal nocturnal dyspnea. No orthopnea. No lightheadedness or dizziness. No syncopal episodes. Abdominal: Reports abdominal pain. No nausea, vomiting. No diarrhea. No constipation. No bloody or tarry stools reports loss of appetite. Genitourinary: No dysuria, increased frequency, urgency. No urinary retention. Musculoskeletal: No myalgias. No muscle weakness, no gait dysfunction, no frequent falls. No back pain. No neck pain. Integumentary: No wounds, no lesions. No rash or pruritus. No unusual bruising. No change in hair or nails. Neurologic: No aphasia. No facial droop. No change in mentation. No head injury. No headache. No paralysis. No paresthesia. Psychiatric: No depression. No anxiety. No mood swings. Endocrine: No abnormal blood sugars. No weight change. PHYSICAL EXAMINATION: General: This is a 75-year-old male resting on the ER stretcher and appears to be comfortable and in no acute distress HEENT: Head is atraumatic, normocephalic, pupils were equal round reactive to light and recommendation, extraocular muscle movement were intact, sclera nonicteric, conjunctivae were pale, mucous membranes of the mouth are somewhat dry. Neck: Supple, no JVP, normal carotid upstroke bilaterally, no lymphadenopathy. Chest: Decreased breath sounds at the bases, few rhonchi, no wheezes, no chest wall tenderness, no intercostal retractions. Heart: First heart sound is normal, second heart sounds normal Abdomen: Soft, nontender, nondistended, positive bowel sounds. Extremities: There is no edema no calf tenderness DP +2 bilaterally. Neurologic examination: Patient is awake alert and oriented 3, cranial nerves II-12 appear grossly intact, muscle power were 5 out of 5 in upper extremities and 5 out of 5 in bilateral lower extremities, deep tendon reflexes normal bilaterally. ASSESSMENT AND PLAN: 1. Acute hypoxic respiratory failure secondary to pneumonia and sepsis, possible gram-negative pneumonia. Consult with pulmonary medicine, continue Zosyn and azithromycin, nebulizer treatments every 4 hours and as needed, blood cultures and sputum culture in progress. 2. Lactic acidosis secondary to sepsis. Continue IV fluids. 3. Acute anemia, possible blood loss anemia. Continued to hold cold Coumadin. Recheck hemoglobin in the morning. 4. History of non-small cell lung cancer in 2008 status post left pneumonectomy. 5. Hypercoagulopathy secondary to sepsis and Coumadin use. Coumadin on hold. 6. Hypertension. Continue losartan 50 mg daily, Toprol-XL 100 mg daily 7. Hyperlipidemia. Continue atrial his statin 80 mg at bedtime. 8. Supraventricular tachycardia secondary to sepsis. Treat underlying cause. 9. Paroxysmal atrial fibrillation on chronic Coumadin. Hold Coumadin. Continue 10. History of sick sinus syndrome status post pacemaker implantation, stable. 11. Alcoholic peripheral neuropathy. Continue amitriptyline 50 mg at bedtime 12. Hypothyroidism. Continue levothyroxine 50 g daily. 13. GI prophylaxis. Protonix 40 mg daily. 14. DVT prophylaxis. Hold Coumadin due to hypercoagulopathy. CODE STATUS: Full code Impression and plan of care have been directed as dictated by the signing physician. Jada Burr nurse practitioner acting as scribe for signing physician. Objective - Vital Signs Vital signs: Vital Signs Temp 97.7 F 12/24/20 08:16 Pulse 107 H 12/24/20 08:16 Resp 18 12/24/20 08:16 BP 114/71 12/24/20 08:16 Pulse Ox 97 12/24/20 08:16 Intake & Output 12/23/20 12/24/20 12/24/20 18:59 06:59 18:59 Weight 69.853 kg Other: # Voids 1 - Labs CBC & Chem 7: 12/27/20 04:37 12/27/20 04:37
--- NOTE | 2020-12-27 15:24 | P.PN ---
Subjective Progress Note Date: 12/25/20 HISTORY OF PRESENT ILLNESS: This is a 75-year-old male patient of mine with past medical history of non-small cell lung cancer diagnosed in 2008 status post lobectomy, remote history of tobacco use, remote history of alcohol abuse, alcoholic peripheral neuropathy, hypertension, coronary artery disease, paroxysmal atrial fibrillation, hypothyroidism. Patient was last seen in the office on 09/12 and no medication changes were made at that time. The patient developed shortness of breath that had been going on for about one week and worsening with exertion. No significant cough. Patient presented to [facility] emergency center he was found to be afebrile but heart rate was 112-128, blood pressure 91/60 was repeated 136/72, pulse 88% on room air. EKG was sinus tachycardia. WBC 21.2, hemoglobin 11.2, platelet count 229. Platelets were normal. BUN 36 and creatinine 1.25. Blood sugar 136. INR 6.0. Coronavirus not detected. Lactic acid 3.3 troponin negative. Liver function tests were normal, bilirubin 2.9. ProBNP 1780. Chest x-ray shows right-sided patchy airspace disease. Complete opacification of the left hemithorax status post pacer placement. CT angiogram of the chest reveals groundglass opacities in the right lung. Pulmonary edema and atypical pneumonia should be considered. Patient admitted to the [facility] floor consult requested with pulmonary medicine 12/24: Patient states that his cough and shortness of breath are improving. He is still on O2 at 2 L with pulse ox of 94-98%. His been afebrile. Heart rate 107, blood pressure 114/56. Repeat blood work reveals WBC 37.1, hemoglobin 9.4, platelet count 251. Repeat INR Repeat chest x-ray reveals no significant change. Patient has been followed by pulmonary medicine with recommendations to continue Zosyn and nebulizer treatments. manager personal has ordered ordered rollator for the patient. 12/25: Notified this morning that patient had a syncopal episode last night and also having black liquid stools. Vitamin K 5mg oral ordered, stat labs, transfer into the ICU. Pulmonary was updated. One unit of packed RBCs ordered. Patient states he is feeling a little tired. Protonix changed to twice daily. Patient admits to taking Aleve at home and has tenderness in the epigastric area. REVIEW OF SYSTEMS: Constitutional: No documented fever, no chills, no night sweats. No weight change. No weakness, fatigue or lethargy. No daytime sleepiness. EENT: No headache. No blurred vision or double vision, no loss of vision. No loss of Hearing, no ringing in the ears, no dizziness. No nasal drainage or congestion. No epistaxis. No sore throat. Lungs: Reports shortness of breath, reports cough, reports sputum production. Reports wheezing. Reports dyspnea with activity. Cardiovascular: No chest pain, no lower extremity edema. No palpitations. No paroxysmal nocturnal dyspnea. No orthopnea. No lightheadedness or dizziness. No syncopal episodes. Abdominal: Reports abdominal pain. No nausea, vomiting. No diarrhea. No constipation. No bloody or tarry stools reports loss of appetite. Genitourinary: No dysuria, increased frequency, urgency. No urinary retention. Musculoskeletal: No myalgias. No muscle weakness, no gait dysfunction, no frequent falls. No back pain. No neck pain. Integumentary: No wounds, no lesions. No rash or pruritus. No unusual bruising. No change in hair or nails. Neurologic: No aphasia. No facial droop. No change in mentation. No head injury. No headache. No paralysis. No paresthesia. Psychiatric: No depression. No anxiety. No mood swings. Endocrine: No abnormal blood sugars. No weight change. PHYSICAL EXAMINATION: General: This is a 75-year-old male resting on the ER stretcher and appears to be comfortable and in no acute distress HEENT: Head is atraumatic, normocephalic, pupils were equal round reactive to light and recommendation, extraocular muscle movement were intact, sclera nonicteric, conjunctivae were pale, mucous membranes of the mouth are somewhat dry. Neck: Supple, no JVP, normal carotid upstroke bilaterally, no lymphadenopathy. Chest: Decreased breath sounds at the bases, few rhonchi, no wheezes, no chest wall tenderness, no intercostal retractions. Heart: First heart sound is normal, second heart sounds normal Abdomen: Soft, epigastric tenderness, nondistended, positive bowel sounds. Extremities: There is no edema no calf tenderness DP +2 bilaterally. Neurologic examination: Patient is awake alert and oriented 3, cranial nerves II-12 appear grossly intact, muscle power were 5 out of 5 in upper extremities and 5 out of 5 in bilateral lower extremities, deep tendon reflexes normal bilaterally. ASSESSMENT AND PLAN: 1. Acute hypoxic respiratory failure secondary to pneumonia and sepsis, possible gram-negative pneumonia. Consult with pulmonary medicine, continue Zosyn and azithromycin, nebulizer treatments every 4 hours and as needed, blood cultures and sputum culture in progress. 2. Lactic acidosis secondary to sepsis. Continue IV fluids. 3. Acute anemia, acute blood loss anemia. Continued to hold cold Coumadin. Transferred to the intensive care unit. Transfuse 1 unit packed RBCs. GI consult added. 4. History of non-small cell lung cancer in 2008 status post left pneumonectomy. 5. Hypercoagulopathy secondary to sepsis and Coumadin use. Coumadin on hold. 6. Hypertension. Continue losartan 50 mg daily, Toprol-XL 100 mg daily 7. Hyperlipidemia. Continue atrial his statin 80 mg at bedtime. 8. Supraventricular tachycardia secondary to sepsis. Treat underlying cause. 9. Paroxysmal atrial fibrillation on chronic Coumadin. Hold Coumadin. Continue 10. History of sick sinus syndrome status post pacemaker implantation, stable. 11. Alcoholic peripheral neuropathy. Continue amitriptyline 50 mg at bedtime 12. Hypothyroidism. Continue levothyroxine 50 g daily. 13. GI prophylaxis. Protonix 40 mg daily. 14. DVT prophylaxis. Hold Coumadin due to hypercoagulopathy. CODE STATUS: Full code Impression and plan of care have been directed as dictated by the signing physician. Jada Burr nurse practitioner acting as scribe for signing physician. Objective - Vital Signs Vital signs: Vital Signs Temp 97.4 F L 12/25/20 14:33 Pulse 91 12/25/20 14:33 Resp 15 12/25/20 14:33 BP 124/57 12/25/20 14:33 Pulse Ox 90 L 12/25/20 14:33 Intake & Output 12/24/20 12/25/20 12/25/20 18:59 06:59 18:59 Intake Total 0 Balance 0 Intake: Blood Product 0 Rc As-1 Unit 0 [id number] Other: Voiding Method Urinal # Bowel Movements 1 - Labs CBC & Chem 7: 12/27/20 04:37 12/27/20 04:37 Labs: Abnormal Lab Results - Last 24 Hours (Table) 12/24/20 12/25/20 12/25/20 Range/Units 08:59 05:08 05:54 WBC 36.71 H (4.50-10.00) X 10*3/uL RBC 2.95 L (4.40-5.60) X 10*6/uL Hgb 7.8 L (13.0-17.0) g/dL Hct 26.3 L (39.6-50.0) % MCH 26.4 L (27.0-32.0) pg MCHC 29.7 L (32.0-37.0) g/dL RDW 19.8 H (11.5-14.5) % Neutrophils # (Manual) (1.3-7.7) k/uL PT (9.9-11.9) sec INR (0.90-1.11) Anion Gap (4.00-12.00) mmol/L BUN (9.0-27.0) mg/dL BUN/Creatinine Ratio (12.00-20.00) Ratio Glucose (70-110) mg/dL POC Glucose (mg/dL) 133 H (75-99) mg/dL Plasma Lactic Acid Robert (0.7-2.0) mmol/L Calcium (8.7-10.3) mg/dL Total Bilirubin (0.3-1.2) mg/dL AST (14-35) U/L Total Protein (6.2-8.2) g/dL Albumin (3.80-4.90) g/dL Albumin/Globulin Ratio (1.60-3.17) g/dL Procalcitonin 0.13 H (0.02-0.09) ng/mL Crossmatch 12/25/20 12/25/20 12/25/20 Range/Units 05:54 05:54 09:58 WBC (4.50-10.00) X 10*3/uL RBC (4.40-5.60) X 10*6/uL Hgb (13.0-17.0) g/dL Hct (39.6-50.0) % MCH (27.0-32.0) pg MCHC (32.0-37.0) g/dL RDW (11.5-14.5) % Neutrophils # (Manual) (1.3-7.7) k/uL PT 55.3 H* (9.9-11.9) sec INR 5.68 H* (0.90-1.11) Anion Gap 13.10 H (4.00-12.00) mmol/L BUN 36.0 H (9.0-27.0) mg/dL BUN/Creatinine Ratio 32.73 H (12.00-20.00) Ratio Glucose 155 H (70-110) mg/dL POC Glucose (mg/dL) 161 H (75-99) mg/dL Plasma Lactic Acid Robert (0.7-2.0) mmol/L Calcium 7.8 L (8.7-10.3) mg/dL Total Bilirubin 3.5 H (0.3-1.2) mg/dL AST 38 H (14-35) U/L Total Protein 5.3 L (6.2-8.2) g/dL Albumin 3.10 L (3.80-4.90) g/dL Albumin/Globulin Ratio 1.41 L (1.60-3.17) g/dL Procalcitonin (0.02-0.09) ng/mL Crossmatch 12/25/20 12/25/20 12/25/20 Range/Units 10:17 10:17 10:17 WBC 36.9 H (4.50-10.00) X 10*3/uL RBC 2.62 L (4.40-5.60) X 10*6/uL Hgb 7.3 L D (13.0-17.0) g/dL Hct 22.6 L (39.6-50.0) % MCH (27.0-32.0) pg MCHC (32.0-37.0) g/dL RDW 19.0 H (11.5-14.5) % Neutrophils # (Manual) 35.40 H (1.3-7.7) k/uL PT 47.9 H (9.9-11.9) sec INR 5.0 H (0.90-1.11) Anion Gap (4.00-12.00) mmol/L BUN 35 H (9.0-27.0) mg/dL BUN/Creatinine Ratio (12.00-20.00) Ratio Glucose 143 H (70-110) mg/dL POC Glucose (mg/dL) (75-99) mg/dL Plasma Lactic Acid Robert (0.7-2.0) mmol/L Calcium 7.7 L (8.7-10.3) mg/dL Total Bilirubin 3.1 H (0.3-1.2) mg/dL AST (14-35) U/L Total Protein 4.9 L (6.2-8.2) g/dL Albumin 2.6 L (3.80-4.90) g/dL Albumin/Globulin Ratio (1.60-3.17) g/dL Procalcitonin (0.02-0.09) ng/mL Crossmatch 12/25/20 12/25/20 Range/Units 10:17 10:17 WBC (4.50-10.00) X 10*3/uL RBC (4.40-5.60) X 10*6/uL Hgb (13.0-17.0) g/dL Hct (39.6-50.0) % MCH (27.0-32.0) pg MCHC (32.0-37.0) g/dL RDW (11.5-14.5) % Neutrophils # (Manual) (1.3-7.7) k/uL PT (9.9-11.9) sec INR (0.90-1.11) Anion Gap (4.00-12.00) mmol/L BUN (9.0-27.0) mg/dL BUN/Creatinine Ratio (12.00-20.00) Ratio Glucose (70-110) mg/dL POC Glucose (mg/dL) (75-99) mg/dL Plasma Lactic Acid Robert 2.3 H* (0.7-2.0) mmol/L Calcium (8.7-10.3) mg/dL Total Bilirubin (0.3-1.2) mg/dL AST (14-35) U/L Total Protein (6.2-8.2) g/dL Albumin (3.80-4.90) g/dL Albumin/Globulin Ratio (1.60-3.17) g/dL Procalcitonin (0.02-0.09) ng/mL Crossmatch See Detail Microbiology - Last 24 Hours (Table) 12/23/20 12:30 Blood Culture - Preliminary Blood No Growth after 24 hours 12/23/20 12:15 Blood Culture - Preliminary Blood No Growth after 24 hours
--- NOTE | 2020-12-27 15:27 | P.PN ---
Subjective Progress Note Date: 12/26/20 HISTORY OF PRESENT ILLNESS: This is a 75-year-old male patient of mine with past medical history of non-small cell lung cancer diagnosed in 2008 status post lobectomy, remote history of tobacco use, remote history of alcohol abuse, alcoholic peripheral neuropathy, hypertension, coronary artery disease, paroxysmal atrial fibrillation, hypothyroidism. Patient was last seen in the office on 09/12 and no medication changes were made at that time. The patient developed shortness of breath that had been going on for about one week and worsening with exertion. No significant cough. Patient presented to [facility] emergency center he was found to be afebrile but heart rate was 112-128, blood pressure 91/60 was repeated 136/72, pulse 88% on room air. EKG was sinus tachycardia. WBC 21.2, hemoglobin 11.2, platelet count 229. Platelets were normal. BUN 36 and creatinine 1.25. Blood sugar 136. INR 6.0. Coronavirus not detected. Lactic acid 3.3 troponin negative. Liver function tests were normal, bilirubin 2.9. ProBNP 1780. Chest x-ray shows right-sided patchy airspace disease. Complete opacification of the left hemithorax status post pacer placement. CT angiogram of the chest reveals groundglass opacities in the right lung. Pulmonary edema and atypical pneumonia should be considered. Patient admitted to the [facility] floor consult requested with pulmonary medicine 12/24: Patient states that his cough and shortness of breath are improving. He is still on O2 at 2 L with pulse ox of 94-98%. His been afebrile. Heart rate 107, blood pressure 114/56. Repeat blood work reveals WBC 37.1, hemoglobin 9.4, platelet count 251. Repeat INR Repeat chest x-ray reveals no significant change. Patient has been followed by pulmonary medicine with recommendations to continue Zosyn and nebulizer treatments. account manager sales representative has ordered ordered rollator for the patient. 12/25: Notified this morning that patient had a syncopal episode last night and also having black liquid stools. Vitamin K 5mg oral ordered, stat labs, transfer into the ICU. Pulmonary was updated. One unit of packed RBCs ordered. Patient states he is feeling a little tired. Protonix changed to twice daily. Patient admits to taking Aleve at home and has tenderness in the epigastric area. 12/26: She is seen today in the intensive care unit. He continues to have black tarry stools. He did go into atrial fibrillation with RVR and on Cardizem drip. Repeat INR today is 1.2. He is status post 1 unit of packed RBCs and hemoglobin is 8.4. GI is on consult with plan for EGD. Patient is followed by cardiology, pulmonary medicine and gastroenterology. REVIEW OF SYSTEMS: Constitutional: No documented fever, no chills, no night sweats. No weight change. No weakness, fatigue or lethargy. No daytime sleepiness. EENT: No headache. No blurred vision or double vision, no loss of vision. No loss of Hearing, no ringing in the ears, no dizziness. No nasal drainage or congestion. No epistaxis. No sore throat. Lungs: Reports shortness of breath, reports cough, reports sputum production. Reports wheezing. Reports dyspnea with activity. Cardiovascular: No chest pain, no lower extremity edema. No palpitations. No paroxysmal nocturnal dyspnea. No orthopnea. No lightheadedness or dizziness. No syncopal episodes. Abdominal: Reports abdominal pain. No nausea, vomiting. No diarrhea. No constipation. No bloody or tarry stools reports loss of appetite. Genitourinary: No dysuria, increased frequency, urgency. No urinary retention. Musculoskeletal: No myalgias. No muscle weakness, no gait dysfunction, no frequent falls. No back pain. No neck pain. Integumentary: No wounds, no lesions. No rash or pruritus. No unusual bruising. No change in hair or nails. Neurologic: No aphasia. No facial droop. No change in mentation. No head injury. No headache. No paralysis. No paresthesia. Psychiatric: No depression. No anxiety. No mood swings. Endocrine: No abnormal blood sugars. No weight change. PHYSICAL EXAMINATION: General: This is a 75-year-old male resting on the ER stretcher and appears to be comfortable and in no acute distress HEENT: Head is atraumatic, normocephalic, pupils were equal round reactive to light and recommendation, extraocular muscle movement were intact, sclera nonicteric, conjunctivae were pale, mucous membranes of the mouth are somewhat dry. Neck: Supple, no JVP, normal carotid upstroke bilaterally, no lymphadenopathy. Chest: Decreased breath sounds at the bases, few rhonchi, no wheezes, no chest wall tenderness, no intercostal retractions. Heart: First heart sound is normal, second heart sounds normal Abdomen: Soft, epigastric tenderness, nondistended, positive bowel sounds. Extremities: There is no edema no calf tenderness DP +2 bilaterally. Neurologic examination: Patient is awake alert and oriented 3, cranial nerves II-12 appear grossly intact, muscle power were 5 out of 5 in upper extremities and 5 out of 5 in bilateral lower extremities, deep tendon reflexes normal bilaterally. ASSESSMENT AND PLAN: 1. Acute hypoxic respiratory failure secondary to pneumonia and sepsis, possible gram-negative pneumonia. Consult with pulmonary medicine, continue Zosyn and azithromycin, nebulizer treatments every 4 hours and as needed, blood cultures and sputum culture in progress. 2. Lactic acidosis secondary to sepsis. Continue IV fluids. 3. Acute anemia, acute blood loss anemia. Continued to hold cold Coumadin. Transferred to the intensive care unit. Transfuse 1 unit packed RBCs. GI consult added. 4. History of non-small cell lung cancer in 2008 status post left pneumonectomy. 5. Hypercoagulopathy secondary to sepsis and Coumadin use. Coumadin on hold. 6. Hypertension. Continue losartan 50 mg daily, Toprol-XL 100 mg daily 7. Hyperlipidemia. Continue atrial his statin 80 mg at bedtime. 8. Supraventricular tachycardia secondary to sepsis. Treat underlying cause. 9. Paroxysmal atrial fibrillation on chronic Coumadin with episode of RVR. Hold Coumadin. Patient required Cardizem drip, cardiology consult appreciated. Continue Toprol-XL 10. History of sick sinus syndrome status post pacemaker implantation, stable. 11. Alcoholic peripheral neuropathy. Continue amitriptyline 50 mg at bedtime 12. Hypothyroidism. Continue levothyroxine 50 g daily. 13. GI prophylaxis. Protonix 40 mg daily. 14. DVT prophylaxis. Hold Coumadin due to hypercoagulopathy. CODE STATUS: Full code Impression and plan of care have been directed as dictated by the signing ph ysician. Jada Burr nurse practitioner acting as scribe for signing physician. Objective - Vital Signs Vital signs: Vital Signs Temp 97.6 F 12/26/20 08:00 Pulse 80 12/26/20 10:00 Resp 20 12/26/20 10:00 BP 104/46 12/26/20 10:00 Pulse Ox 95 12/26/20 10:00 Intake & Output 12/25/20 12/26/20 12/26/20 18:59 06:59 18:59 Intake Total 310 550 800 Output Total 400 400 0 Balance -90 150 800 Weight 74.6 kg Intake: IV 550 800 Sodium Chloride 0.9% 1, 550 250 000 ml @ 999 mls/hr IV . Q1H1M ONE Rx#:[id number] Blood Product 310 Rc As-1 Unit 310 [id number] Output: Urine 400 400 0 Other: Voiding Method Urinal Urinal Urinal # Voids 1 1 # Bowel Movements 1 - Labs CBC & Chem 7: 12/27/20 04:37 12/27/20 04:37 Labs: Abnormal Lab Results - Last 24 Hours (Table) 12/25/20 12/25/20 12/25/20 Range/Units 10:17 18:47 22:28 WBC 39.1 H 38.9 H (3.8-10.6) k/uL RBC 3.14 L 3.14 L (4.30-5.90) m/uL Hgb 8.9 L D 9.1 L (13.0-17.5) gm/dL Hct 27.6 L 27.6 L (39.0-53.0) % MCHC (31.0-37.0) g/dL RDW 18.5 H 18.6 H (11.5-15.5) % Neutrophils # (1.3-7.7) k/uL Monocytes # (0-1.0) k/uL PT (9.0-12.0) sec INR (<1.2) Chloride (98-107) mmol/L BUN (9-20) mg/dL Glucose (74-99) mg/dL Calcium (8.4-10.2) mg/dL Crossmatch See Detail 12/25/20 12/26/20 12/26/20 Range/Units 22:28 04:50 04:50 WBC 44.1 H (3.8-10.6) k/uL RBC 3.05 L (4.30-5.90) m/uL Hgb 8.4 L (13.0-17.5) gm/dL Hct 27.5 L (39.0-53.0) % MCHC 30.5 L (31.0-37.0) g/dL RDW 19.2 H (11.5-15.5) % Neutrophils # 36.1 H (1.3-7.7) k/uL Monocytes # 5.5 H (0-1.0) k/uL PT 15.7 H 12.4 H (9.0-12.0) sec INR 1.6 H 1.2 H (<1.2) Chloride (98-107) mmol/L BUN (9-20) mg/dL Glucose (74-99) mg/dL Calcium (8.4-10.2) mg/dL Crossmatch 12/26/20 Range/Units 04:50 WBC (3.8-10.6) k/uL RBC (4.30-5.90) m/uL Hgb (13.0-17.5) gm/dL Hct (39.0-53.0) % MCHC (31.0-37.0) g/dL RDW (11.5-15.5) % Neutrophils # (1.3-7.7) k/uL Monocytes # (0-1.0) k/uL PT (9.0-12.0) sec INR (<1.2) Chloride 110 H (98-107) mmol/L BUN 24 H (9-20) mg/dL Glucose 109 H (74-99) mg/dL Calcium 7.4 L (8.4-10.2) mg/dL Crossmatch Microbiology - Last 24 Hours (Table) 12/23/20 12:30 Blood Culture - Preliminary Blood No Growth after 48 hours 12/23/20 12:15 Blood Culture - Preliminary Blood No Growth after 48 hours
--- NOTE | 2020-12-27 15:31 | P.PN ---
Subjective Progress Note Date: 12/27/20 HISTORY OF PRESENT ILLNESS: This is a 75-year-old male patient of mine with past medical history of non-small cell lung cancer diagnosed in 2008 status post lobectomy, remote history of tobacco use, remote history of alcohol abuse, alcoholic peripheral neuropathy, hypertension, coronary artery disease, paroxysmal atrial fibrillation, hypothyroidism. Patient was last seen in the office on 09/12 and no medication changes were made at that time. The patient developed shortness of breath that had been going on for about one week and worsening with exertion. No significant cough. Patient presented to [facility] emergency center he was found to be afebrile but heart rate was 112-128, blood pressure 91/60 was repeated 136/72, pulse 88% on room air. EKG was sinus tachycardia. WBC 21.2, hemoglobin 11.2, platelet count 229. Platelets were normal. BUN 36 and creatinine 1.25. Blood sugar 136. INR 6.0. Coronavirus not detected. Lactic acid 3.3 troponin negative. Liver function tests were normal, bilirubin 2.9. ProBNP 1780. Chest x-ray shows right-sided patchy airspace disease. Complete opacification of the left hemithorax status post pacer placement. CT angiogram of the chest reveals groundglass opacities in the right lung. Pulmonary edema and atypical pneumonia should be considered. Patient admitted to the [facility] floor consult requested with pulmonary medicine 12/24: Patient states that his cough and shortness of breath are improving. He is still on O2 at 2 L with pulse ox of 94-98%. His been afebrile. Heart rate 107, blood pressure 114/56. Repeat blood work reveals WBC 37.1, hemoglobin 9.4, platelet count 251. Repeat INR Repeat chest x-ray reveals no significant change. Patient has been followed by pulmonary medicine with recommendations to continue Zosyn and nebulizer treatments. manager inventory control has ordered ordered rollator for the patient. 12/25: Notified this morning that patient had a syncopal episode last night and also having black liquid stools. Vitamin K 5mg oral ordered, stat labs, transfer into the ICU. Pulmonary was updated. One unit of packed RBCs ordered. Patient states he is feeling a little tired. Protonix changed to twice daily. Patient admits to taking Aleve at home and has tenderness in the epigastric area. 12/26: Patient is seen today in the intensive care unit. He continues to have black tarry stools. He did go into atrial fibrillation with RVR and on Cardizem drip. Repeat INR today is 1.2. He is status post 1 unit of packed RBCs and hemoglobin is 8.4. GI is on consult with plan for EGD. Patient is followed by cardiology, pulmonary medicine and gastroenterology. 12/27: Patient remains in the intensive care unit. He is on a Cardizem drip and heart rate is 105. Patient denies having any dizziness. He did have bowel movement this morning that was black. He does have tenderness in upper quadrants. He underwent EGD yesterday which revealed moderate gastritis, mild one night as, moderate size hiatal hernia, biopsies of the duodenum, antrum and body were obtained. Patient was cleared by GI to resume diet but continue to hold anticoagulation until hemoglobin stabilized. Patient is continued on Protonix twice daily. Patient has been advised to avoid all nonsteroidal anti- inflammatory use including Aleve. Dr. Jean Marie Pinon will schedule patient for colono scopy on Wednesday Repeat hemoglobin is 8, WBC 31.5, platelet count 278. BUN 27 creatinine 0.83. Repeat chest x-ray reveals slight improvement of aeration of the right lung. The patient is also continued to be followed by cardiology and IV Cardizem to be discontinued today. Coumadin remains on hold. REVIEW OF SYSTEMS: Constitutional: No documented fever, no chills, no night sweats. No weight change. Reports weakness, reports fatigue or lethargy. No daytime sleepiness. EENT: No headache. No blurred vision or double vision, no loss of vision. No loss of Hearing, no ringing in the ears, no dizziness. No nasal drainage or congestion. No epistaxis. No sore throat. Lungs: Reports shortness of breath, reports cough, reports sputum production. Reports wheezing. Reports dyspnea with activity. Cardiovascular: No chest pain, no lower extremity edema. No palpitations. No paroxysmal nocturnal dyspnea. No orthopnea. No lightheadedness or dizziness. No syncopal episodes. Abdominal: Reports abdominal pain. No nausea, vomiting. Reported diarrhea. No constipation. Reported bloody or tarry stools reports loss of appetite. Genitourinary: No dysuria, increased frequency, urgency. No urinary retention. Musculoskeletal: No myalgias. No muscle weakness, no gait dysfunction, no frequent falls. No back pain. No neck pain. Integumentary: No wounds, no lesions. No rash or pruritus. No unusual bruising. No change in hair or nails. Neurologic: No aphasia. No facial droop. No change in mentation. No head injury. No headache. No paralysis. No paresthesia. Psychiatric: No depression. No anxiety. No mood swings. Endocrine: No abnormal blood sugars. No weight change. PHYSICAL EXAMINATION: General: This is a 75-year-old male resting on the ER stretcher and appears to be comfortable and in no acute distress HEENT: Head is atraumatic, normocephalic, pupils were equal round reactive to light and recommendation, extraocular muscle movement were intact, sclera nonicteric, conjunctivae were pale, mucous membranes of the mouth are somewhat dry. Neck: Supple, no JVP, normal carotid upstroke bilaterally, no lymphadenopathy. Chest: Decreased breath sounds at the bases, few rhonchi, no wheezes, no chest wall tenderness, no intercostal retractions. Heart: First heart sound is normal, second heart sounds normal Abdomen: Soft, epigastric tenderness, nondistended, positive bowel sounds. Extremities: There is no edema no calf tenderness DP +2 bilaterally. Neurologic examination: Patient is awake alert and oriented 3, cranial nerves II-12 appear grossly intact, muscle power were 5 out of 5 in upper extremities and 5 out of 5 in bilateral lower extremities, deep tendon reflexes normal bilaterally. ASSESSMENT AND PLAN: 1. Acute hypoxic respiratory failure secondary to pneumonia and sepsis, possible gram-negative pneumonia. Consult with pulmonary medicine, continue Zosyn and azithromycin, nebulizer treatments every 4 hours and as needed, blood cultures and sputum culture in progress. 2. Lactic acidosis secondary to sepsis. Continue IV fluids. 3. Acute anemia, acute blood loss anemia secondary to gastritis due to Coumadin and Aleve use. Continued to hold cold Coumadin. Transferred to the intensive care unit. Transfuse 1 unit packed RBCs. GI consult appreciated. Patient is scheduled for colonoscopy on Wednesday 4. History of non-small cell lung cancer in 2008 status post left pneumonectomy. 5. Hypercoagulopathy secondary to sepsis and Coumadin use. Coumadin on hold. 6. Hypertension. Continue losartan 50 mg daily, Toprol-XL 100 mg daily 7. Hyperlipidemia. Continue atrial his statin 80 mg at bedtime. 8. Supraventricular tachycardia secondary to sepsis. Treat underlying cause. 9. Paroxysmal atrial fibrillation on chronic Coumadin with episode of RVR. Hold Coumadin. Patient required Cardizem drip will be discontinued today, cardiology consult appreciated. Continue Toprol-XL 10. History of sick sinus syndrome status post pacemaker implantation, stable. 11. Alcoholic peripheral neuropathy. Continue amitriptyline 50 mg at bedtime 12. Hypothyroidism. Continue levothyroxine 50 g daily. 13. GI prophylaxis. Protonix 40 mg daily. 14. DVT prophylaxis. Hold Coumadin due to hypercoagulopathy. CODE STATUS: Full code Impression and plan of care have been directed as dictated by the signing physician. Jada Burr nurse practitioner acting as scribe for signing physician. Objective - Vital Signs Vital signs: Vital Signs Temp 97.8 F 12/27/20 04:00 Pulse 93 12/27/20 07:00 Resp 16 12/27/20 07:00 BP 119/49 12/27/20 07:00 Pulse Ox 96 12/27/20 07:00 Intake & Output 12/26/20 12/27/20 12/27/20 18:59 06:59 18:59 Intake Total 1642.083 545 Output Total 200 200 Balance 1442.083 345 Weight 75.6 kg Intake: IV 800 545 .9nS 320 Piperacillin-Tazobactam 3 225 .375 gm In Sodium Chloride 0.9% 100 ml @ 25 mls/hr IVPB Q8HR [facility] Rx# :[id number] Sodium Chloride 0.9% 1, 250 000 ml @ 999 mls/hr IV . Q1H1M ONE Rx#:[id number] Intake, IV Titration 122.083 Amount Diltiazem 125 mg In 122.083 Sodium Chloride 0.9% 100 ml @ 5 MG/HR 5 mls/hr IV .Q24H [facility] Rx#:[id number] Oral 720 Output: Urine 200 200 Other: Voiding Method Urinal Urinal # Voids 2 # Bowel Movements 1 1 - Labs CBC & Chem 7: 12/27/20 04:37 12/27/20 04:37 Labs: Abnormal Lab Results - Last 24 Hours (Table) 12/27/20 12/27/20 Range/Units 04:37 04:37 WBC 31.5 H (3.8-10.6) k/uL RBC 2.75 L (4.30-5.90) m/uL Hgb 8.0 L (13.0-17.5) gm/dL Hct 25.2 L (39.0-53.0) % RDW 19.2 H (11.5-15.5) % Neutrophils # 25.0 H (1.3-7.7) k/uL Monocytes # 4.1 H (0-1.0) k/uL Chloride 108 H (98-107) mmol/L Carbon Dioxide 20 L (22-30) mmol/L BUN 27 H (9-20) mg/dL Glucose 112 H (74-99) mg/dL Calcium 7.0 L (8.4-10.2) mg/dL Microbiology - Last 24 Hours (Table) 12/23/20 12:30 Blood Culture - Preliminary Blood No Growth after 72 hours 12/23/20 12:15 Blood Culture - Preliminary Blood No Growth after 72 hours
[2020-12-27] MEDS: AMITRIPTYLINE HCL 50 MG TAB PO SCH (21:08)
[2020-12-27] MEDS: ACETAMINOPHEN TAB 325 MG TAB PO PRN (21:08)
[2020-12-27] MEDS: ATORVASTATIN 80 MG TAB PO SCH (21:08)
[2020-12-28] MEDS: LEVOTHYROXINE 50 MCG TAB PO SCH (06:13)
[2020-12-28 06:21] LABS: Anisocytosis Slight; HGB 8.1 gm/dL (13.0-17.5); Hypochromasia Moderate; MCH 29.3 pg (25.0-35.0); MCHC 32.4 g/dL (31.0-37.0); MCV 90.4 fL (80.0-100.0); Mean Platelet Volume 9.7; Platelet Count 222 k/uL (150-450); Poikilocytosis Slight; RBC 2.76 m/uL (4.30-5.90); RDW 19.7 % (11.5-15.5); WBC 21.1 k/uL (3.8-10.6)
[2020-12-28 06:46] LABS: African American GFR (CKD) >90 (>60 ml/min/1.73 sqM); Anion Gap 5 mmol/L; Blood Urea Nitrogen 21 mg/dL (9-20); Calcium 6.8 mg/dL (8.4-10.2); Carbon Dioxide 26 mmol/L (22-30); Chloride 107 mmol/L (98-107); Glucose 107 mg/dL (74-99); Non-African American GFR(CKD) >90 (>60 ml/min/1.73 sqM); Potassium 3.8 mmol/L (3.5-5.1); Sodium 138 mmol/L (137-145)
[2020-12-28] MEDS: PANTOPRAZOLE 40 MG/10 ML VIAL IVP SCH ×2 (09:15→20:02)
[2020-12-28] MEDS: MECLIZINE 12.5 MG TAB PO SCH (09:16)
[2020-12-28] MEDS: LOSARTAN 25 MG TAB PO SCH (09:16)
[2020-12-28] MEDS: PIPERACILLIN-TAZOBACTAM 3.375 GM in SODIUM CHLORIDE 0.9% 100 ML IVPB SCH ×3 (09:16→23:12)
[2020-12-28] MEDS: METOPROLOL SUCCINATE (ER) 100 MG TAB.ER.24H PO SCH (09:16)
[2020-12-28 10:55] VITALS: BMI 23.8
--- NOTE | 2020-12-28 12:12 | P.PN ---
Subjective Progress Note Date: 12/28/20 HISTORY OF PRESENT ILLNESS: This is a 75-year-old male patient of mine with past medical history of non-small cell lung cancer diagnosed in 2008 status post lobectomy, remote history of tobacco use, remote history of alcohol abuse, alcoholic peripheral neuropathy, hypertension, coronary artery disease, paroxysmal atrial fibrillation, hypothyroidism. Patient was last seen in the office on 09/12 and no medication changes were made at that time. The patient developed shortness of breath that had been going on for about one week and worsening with exertion. No significant cough. Patient presented to [facility] emergency center he was found to be afebrile but heart rate was 112-128, blood pressure 91/60 was repeated 136/72, pulse 88% on room air. EKG was sinus tachycardia. WBC 21.2, hemoglobin 11.2, platelet count 229. Platelets were normal. BUN 36 and creatinine 1.25. Blood sugar 136. INR 6.0. Coronavirus not detected. Lactic acid 3.3 troponin negative. Liver function tests were normal, bilirubin 2.9. ProBNP 1780. Chest x-ray shows right-sided patchy airspace disease. Complete opacification of the left hemithorax status post p acer placement. CT angiogram of the chest reveals groundglass opacities in the right lung. Pulmonary edema and atypical pneumonia should be considered. Patient admitted to the [facility] floor consult requested with pulmonary medicine 12/24: Patient states that his cough and shortness of breath are improving. He is still on O2 at 2 L with pulse ox of 94-98%. His been afebrile. Heart rate 107, blood pressure 114/56. Repeat blood work reveals WBC 37.1, hemoglobin 9.4, platelet count 251. Repeat INR Repeat chest x-ray reveals no significant change. Patient has been followed by pulmonary medicine with recommendations to continue Zosyn and nebulizer treatments. senior account manager has ordered ordered rollator for the patient. 12/25: Notified this morning that patient had a syncopal episode last night and also having black liquid stools. Vitamin K 5mg oral ordered, stat labs, transfer into the ICU. Pulmonary was updated. One unit of packed RBCs ordered. Patient states he is feeling a little tired. Protonix changed to twice daily. Patient admits to taking Aleve at home and has tenderness in the epigastric area. 12/26: Patient is seen today in the intensive care unit. He continues to have black tarry stools. He did go into atrial fibrillation with RVR and on Cardizem drip. Repeat INR today is 1.2. He is status post 1 unit of packed RBCs and hemoglobin is 8.4. GI is on consult with plan for EGD. Patient is followed by cardiology, pulmonary medicine and gastroenterology. 12/27: Patient remains in the intensive care unit. He is on a Cardizem drip and heart rate is 105. Patient denies having any dizziness. He did have bowel movement this morning that was black. He does have tenderness in upper quadrants. He underwent EGD yesterday which revealed moderate gastritis, mild one night as, moderate size hiatal hernia, biopsies of the duodenum, antrum and body were obtained. Patient was cleared by GI to resume diet but continue to hold anticoagulation until hemoglobin stabilized. Patient is continued on Protonix twice daily. Patient has been advised to avoid all nonsteroidal anti- inflammatory use including Aleve. Dr. Jean Marie Pinon will schedule patient for colonos copy on Wednesday Repeat hemoglobin is 8, WBC 31.5, platelet count 278. BUN 27 creatinine 0.83. Repeat chest x-ray reveals slight improvement of aeration of the right lung. The patient is also continued to be followed by cardiology and IV Cardizem to be discontinued today. Coumadin remains on hold. 12/28: Patient is sitting up in bed in no apparent distress, he appears to be extremely weak today, he denies any chest pain, shortness breath, he continues to be generally weak, is scheduled to go for colonoscopy tomorrow morning, he will start the prep this afternoon, I spoke with the patient to talk to physical therapy about going to [facility] for physical therapy and rehabilitation after his discharge from the hospital, he continues to be off blood thinner for now, REVIEW OF SYSTEMS: Constitutional: No documented fever, no chills, no night sweats. positive for weight loss. Reports weakness, reports fatigue no lethargy. No daytime sleepiness. HEENT: No headache. No blurred vision or double vision, no loss of vision. Hard of Hearing, no ringing in the ears, no dizziness. No nasal drainage or congestion. No epistaxis. No sore throat. Lungs: Reports shortness of breath, reports cough, reports sputum production. Reports wheezing. Reports dyspnea with activity. Cardiovascular: No chest pain, no lower extremity edema. positive for palpitations. No paroxysmal nocturnal dyspnea. No orthopnea. No lightheadedness or dizziness. had syncope due to GI bleed 2 days ago. Abdominal: Reports abdominal pain. No nausea, vomiting. Reported diarrhea. No constipation. Reported bloody or tarry stools reports loss of appetite. Genitourinary: No dysuria, increased frequency, urgency. No urinary retention. Musculoskeletal: No myalgias. positive for muscle weakness, positive for gait dysfunction, frequent falls. positive for back pain and neck pain. Integumentary: No wounds, no lesions multiple bruises, positive for nail changes Neurologic: No aphasia. No facial droop. No change in mentation. No head injury. No headache. No paralysis. No paresthesia. Psychiatric: positive for depression and anxiety. Endocrine: positive for weight loss. PHYSICAL EXAMINATION: General: This is a 75-year-old male resting in bed with mild distress appears with flat affect and appears depressed. HEENT: Head is atraumatic, normocephalic, pupils were equal round reactive to light and recommendation, extraocular muscle movement were intact, sclera nonicteric, conjunctivae were pale, mucous membranes of the mouth are somewhat d ry. Neck: Supple, no JVP, normal carotid upstroke bilaterally, no lymphadenopathy. Chest: Decreased breath sounds at the bases, few rhonchi, no wheezes, no chest wall tenderness, no intercostal retractions. Heart: First heart sound is normal, second heart sounds normal irregularlt irregular, there is PPM in the left upper precordium there is ZOYA 2/6 located at the left sternal border. Abdomen: Soft, epigastric tenderness, there is left lower quadrant tenderness as well along with minimal guarding, positive bowel sounds Extremities: There is trace edema, no calf tenderness, positive for Hallux valgus bilaterally with significant deformities in both feet, DP +1 bilaterally Neurologic examination: Patient is awake alert and oriented 3, cranial nerves II-12 appear grossly intact, muscle power were 4 out of 5 in upper extremities and 3 out of 5 in bilateral lower extremities, deep tendon reflexes normal bilaterally. ASSESSMENT AND PLAN: 1. Acute hypoxic respiratory failure secondary to pneumonia and sepsis, possible gram-negative pneumonia. Continue Zosyn 3.375 g IV piggyback every 8 hours, continue Zithromax 250 mg orally once every day, continue nebulized treatment, continue oxygen support, sputum cultures still pending. 2. Lactic acidosis secondary to sepsis. Post IV fluid resuscitation has resolved. 3. Acute blood loss anemia, acute blood loss anemia secondary to gastritis due to Coumadin and Aleve use. Continued to hold cold Coumadin. Transfused 1 unit packed RBCs. GI consult appreciated. Patient is scheduled for colonoscopy on Wednesday 4. History of non-small cell lung cancer in 2008 status post left pneumonectomy. 5. Hypercoagulopathy secondary to sepsis and Coumadin use. Coumadin on hold. 6. Hypertension and hypertensive cardiovascular disease. Continue losartan 50 mg daily, Toprol-XL 100 mg daily 7. Hyperlipidemia. Continue atorvastatin 80 mg at bedtime. 8. Supraventricular tachycardia secondary to sepsis. Treat underlying cause. 9. Paroxysmal atrial fibrillation on chronic Coumadin with episode of RVR. Hold Coumadin, continue Toprol-XL 100 mg orally once every day, monitor the patient blood pressure very closely. 10. History of sick sinus syndrome status post pacemaker implantation, stable. 11. Alcoholic peripheral neuropathy. Continue amitriptyline 50 mg at bedtime 12. Hypothyroidism. Continue levothyroxine 50 g daily. 13. GI prophylaxis. Protonix 40 mg daily. 14. DVT prophylaxis. Hold Coumadin due to hypercoagulopathy. 15. Medical debility. Physical therapy evaluation for possible subacute rehabilitation. 16. Patient is full code. Objective - Vital Signs Vital signs: Vital Signs Temp 98 F 12/28/20 08:00 Pulse 98 12/28/20 08:00 Resp 20 12/28/20 08:00 BP 136/75 12/28/20 08:00 Pulse Ox 96 12/28/20 08:00 Intake & Output 12/27/20 12/28/20 12/28/20 18:59 06:59 18:59 Intake Total 640 240 360 Output Total 0 Balance 640 240 360 Weight 75.2 kg Intake: IV 160 .9nS 60 Piperacillin-Tazobactam 3 100 .375 gm In Sodium Chloride 0.9% 100 ml @ 25 mls/hr IVPB Q8HR [facility] Rx# :[id number] Oral 480 240 360 Output: Urine 0 Other: Voiding Method Urinal Urinal # Voids 1 # Bowel Movements 1 1 - Labs CBC & Chem 7: 12/28/20 05:36 12/28/20 05:36 Labs: Abnormal Lab Results - Last 24 Hours (Table) 12/28/20 12/28/20 Range/Units 05:36 05:36 WBC 21.1 H (3.8-10.6) k/uL RBC 2.76 L (4.30-5.90) m/uL Hgb 8.1 L (13.0-17.5) gm/dL Hct 25.0 L (39.0-53.0) % RDW 19.7 H (11.5-15.5) % BUN 21 H (9-20) mg/dL Glucose 107 H (74-99) mg/dL Calcium 6.8 L (8.4-10.2) mg/dL Microbiology - Last 24 Hours (Table) 12/23/20 12:30 Blood Culture - Preliminary Blood No Growth after 96 hours 12/23/20 12:15 Blood Culture - Preliminary Blood No Growth after 96 hours
--- NOTE | 2020-12-28 12:13 | P.PN ---
Subjective Progress Note Date: 12/28/20 Principal diagnosis: History of lung cancer, pneumonia, GI bleeding This is a 75-year-old white male patient of Dr. Oglesby with past medical history of COPD, former smoker, non-small cell lung cancer diagnosed in 2008, status post left pneumonectomy, remote history of alcohol abuse, and alcoholic peripheral neuropathy, hypertension, CAD, paroxysmal A. fib and hypothyroidism. His left pneumonectomy was performed by Dr. Ho. He does not follow with a operations specialist. Patient also recently had a permanent biventricular pacemaker inserted in July 2020 presenting with syncope and sick sinus syndrome, and this was done by Dr. Terry Costello. Patient had been sick at home for 3 or 4 days with worsening dyspnea, cough, and phlegm production. No chest pain, no hemoptysis, no leg pain or leg swelling, he did complain of fever, sister is at the bedside and the patient is hard of hearing and some of the history was provided by his sister. She stated that patient had been sick for close to one week. Chest x-ray in emergency department showed new right-sided patchy airspace disease, and complete opacification of left hemithorax status post left pneumonectomy. Patient is afebrile on presentation, his pulse ox is 88% on room air, patient is tachycardic, short of breath, his lab work showed a white blood cell count of 21.2, hemoglobin of 11.2, INR is 6.0, patient is on Coumadin for history of paroxysmal atrial fibrillation, his d-dimer was 0.80, electrolytes were within normal limits, B1 is 36 creatinine is 1.25, plasma lactic acid was 3.3, proBNP was 1780, troponin was 0.016, COVID-19 PCR test was negative. Patient was satting 98% on 2 L, is awake and alert, oriented 3, there is to be in no acute distress, KG showed sinus tachycardia with a rate of 122 BPM, patient was started on IV hydration with 0.9 normal saline infusing at 130 ML per hour, Zosyn and azithromycin were started for antibiotic coverage, patient was given a breathing treatment. Progress note dated 12/24/2020. This is a 75-year-old male who was admitted with a diagnosis of acute hypoxemic respiratory failure secondary to community-acquired pneumonia involving the right lung. The patient has a prior history of left pneumonectomy for non-small cell lung cancer in 2008. He currently does not smoke. He is feeling better. He is less short of breath. He's currently on oxygen therapy at 3 L. In addition, he has a history of hypothyroidism, CAD, hypertension, alcohol abuse with alcoholic peripheral neuropathy, paroxysmal atrial fibrillation, sick sinus syndrome, status post pacemaker implantation, and of course COPD. No new labs today. Chest x-ray from today continues to show extensive airspace disease in the right lung. The left lung is opacified secondary to previous left pneumonectomy. Progress note dated 12/25/2020. This is a 75-year-old male, that was seen in room 462 today. He was admitted with a diagnosis of acute hypoxemic respiratory failure secondary to community- acquired pneumonia involving the right lung. The patient has a previous history of left pneumonectomy done by Dr. Ho, for non-small cell lung cancer. This was done in 2008. Currently does not smoke. Although yesterday was feeling better from the pulmonary standpoint, apparently last night, he became very weak. He also became more short of breath and required more oxygen. Apparently he had a syncopal episode or an episode of low blood pressure. He also had 2 bowel movements which were black, and there were concerns that the patient was deteriorating, with a GI bleed. The primary service asked whether or not we could transfer the patient to the intensive care unit. We agreed to. The patient does have a history of hypothyroidism, CAD, hypertension, alcohol abuse, with alcoholic peripheral neuropathy, paroxysmal atrial relation, sick sinus syndrome, status post pacemaker insertion, and COPD. Today's labs include a PTT of 47.9 and an INR of 5.0. His hemoglobin is down to 7.8 from 9.4. White count is 36.71. Hematocrit 26.3, platelet count 265,000. Sodium potassium chloride CO2 all normal. Anion gap normal. BUN 35, with a creatinine 1.12. Progress note dated 12/26/2020. 75-year-old male seen today in the ICU, room 261. He was transferred there yesterday. The patient developed a GI bleed. More recently, he developed atrial fibrillation with RVR. The patient is currently on a Cardizem drip at 5 mg an hour, saline at 50 mL an hour, and oxygen at 4 L by nasal cannula. The patient did receive 1 unit of packed red blood cells. Today's hemoglobin was 8.4. He clinically is feeling much better and actually looks much better. White count 44.1, hemoglobin 8.4, hematocrit 27.5, platelet count 285,000. ET 12.4, INR 1.2. Sodium 141, potassium 4.1, chlorides 110, CO2 22, anion gap 9, BUN 24, with a creatinine 0.94. Chest x-ray from the , reveals an opacified left hemithorax consistent with previous left pneumonectomy, and patchy infiltrates in the right lung consistent with pneumonia. On 12/28/2019 with patient seen in follow-up in the intensive care unit, he is awake and alert, resting comfortably in bed, currently on 4 L of oxygen with a pulse ox of 96%, he is breathing comfortably, he appears to be in no acute dist ress, he is answering questions appropriately, he is oriented 3. He is on 0.9 normal seen at 20 ML per hour, Cardizem drip is currently is at 5 mg per hour, he is currently in the paced rhythm with underlying atrial fibrillation and the rate is currently controlled at 85-96 BPM. Blood pressure is stable, cardiology is following, his anticoagulation is currently on hold in view of his recent GI bleeding, overnight he had 2 black bowel movements per the nursing staff, abdomen is soft, no complaints of abdominal pain, no nausea or vomiting, today's hemoglobin is 8.0. Patient did receive 1 unit of packed red blood cells this admission, his last INR was yesterday of 1.2. Coumadin is on hold. She remains on Protonix 40 mg twice daily, he remains on Zosyn for possibility of pneumonia, on today's labs his white count is improving, he has had no fever or chills overnight, his breathing overall has improved, no complaints of chest discomfort. On 12/28/2020 patient seen in follow-up on selective care unit, he is awake and alert, in no acute distress, he is on 3 L of oxygen, his breathing comfortably, no increased cough or congestion, today's chest x-ray shows slight improvement in aeration of the right lung. He remains on Zosyn for abiotic coverage. Blood cultures have shown no growth so far. Leukocytosis continues to improve, and his white blood cell count is 21.1 down from 31.500 yesterday's labs, hemoglobin is 8.1, electrolytes and renal profile are unremarkable, patient has had no fever or chills. Denies any abdominal discomfort, his Coumadin remains on hold, GI service is following and patient is supposed to have colonoscopy tomorrow on 12/29/2020 for evaluation of lower GI bleeding. Objective - Vital Signs Vital signs: Vital Signs Temp 98 F 12/28/20 08:00 Pulse 98 12/28/20 08:00 Resp 20 12/28/20 08:00 BP 136/75 12/28/20 08:00 Pulse Ox 96 12/28/20 08:00 Intake & Output 12/27/20 12/28/20 12/28/20 18:59 06:59 18:59 Intake Total 640 240 360 Output Total 0 Balance 640 240 360 Weight 75.2 kg 75.2 kg Intake: IV 160 .9nS 60 Piperacillin-Tazobactam 3 100 .375 gm In Sodium Chloride 0.9% 100 ml @ 25 mls/hr IVPB Q8HR [facility] Rx# :[id number] Oral 480 240 360 Output: Urine 0 Other: Voiding Method Urinal Urinal # Voids 1 # Bowel Movements 1 1 - Exam GENERAL EXAM: Alert, very pleasant, hard of hearing, 75-year-old white male, on 3 L of oxygen, with pulse ox of 96% comfortable in no apparent distress. HEAD: Normocephalic/atraumatic. EYES: Normal reaction of pupils, equal size. Conjunctiva pink, sclera white. NOSE: Clear with pink turbinates. THROAT: No erythema or exudates. NECK: No masses, no JVD, no thyroid enlargement, no adenopathy. CHEST: No chest wall deformity. Symmetrical expansion. LUNGS: Equal air entry with no crackles, wheeze, rhonchi or dullness. CVS: Irregular rate and rhythm, normal S1 and S2, no gallops, no murmurs, no rubs ABDOMEN: Soft, nontender. No hepatosplenomegaly, normal bowel sounds, no guarding or rigidity. EXTREMITIES: No clubbing, no edema, no cyanosis, 2+ pulses and upper and lower extremities. MUSCULOSKELETAL: Muscle strength and tone normal. SPINE: No scoliosis or deformity SKIN: No rashes CENTRAL NERVOUS SYSTEM: Alert and oriented -3. No focal deficits, tone is normal in all 4 extremities. PSYCHIATRIC: Alert and oriented -3. Appropriate affect. Intact judgment and insight. - Labs CBC & Chem 7: 12/28/20 05:36 12/28/20 05:36 Labs: Abnormal Lab Results - Last 24 Hours (Table) 12/28/20 12/28/20 Range/Units 05:36 05:36 WBC 21.1 H (3.8-10.6) k/uL RBC 2.76 L (4.30-5.90) m/uL Hgb 8.1 L (13.0-17.5) gm/dL Hct 25.0 L (39.0-53.0) % RDW 19.7 H (11.5-15.5) % BUN 21 H (9-20) mg/dL Glucose 107 H (74-99) mg/dL Calcium 6.8 L (8.4-10.2) mg/dL Microbiology - Last 24 Hours (Table) 12/23/20 12:30 Blood Culture - Preliminary Blood No Growth after 96 hours 12/23/20 12:15 Blood Culture - Preliminary Blood No Growth after 96 hours Assessment and Plan Plan: Assessment: #1. Acute GI blood loss anemia, requiring transfusion with 1 unit of packed red blood cells, status post EGD on 12/26/2020 showing moderate gastritis, and mild duodenitis, moderate-sized hiatal hernia. Patient is supposed to have colonoscopy tomorrow on 12/29/2020 #2. Acute hypoxic respiratory failure related to acute community acquired pneumonia with sepsis, COVID-19 PCR was negative #3. Lactic acidosis related to sepsis secondary to pneumonia, improved #4. History of left pneumonectomy related to history of non-small cell lung cancer in 2008 #5. History of COPD #6. History of sick sinus syndrome with syncopal episodes, status post permanent by the pacemaker implantation in July 2020 #7. Paroxysmal A. fib on Coumadin, currently in paced mechanism #8. Supratherapeutic INR of 6.0, currently down to 1.2, Coumadin is on hold #9. Ex-smoker, in remission since 2010 #10. History of EtOH with alcoholic peripheral neuropathy, in remission #11. Hypertension #12. Coronary artery disease #13. Hypothyroidism Plan: Continue current antibiotics Continue weaning FiO2 Breathing comfortably No fever or chills Cultures are negative Continue Protonix Monitor for any recurrence of GI bleeding Coumadin remains on hold Colonoscopy is planned for tomorrow Stable for transfer out of intensive care unit to 3 S. monitored bed I performed a history & physical examination of the patient and discussed their management with my nurse practitioner, Marycarmen Lucero. I reviewed the nurse practitioner's note and agree with the documented findings and plan of care. Lung sounds are positive for diffuse wheezes throughout the lung boone. The findings and the impression was discussed with the patient. I attest to the documentation by the nurse practitioner. Time with Patient: Less than 30
[2020-12-28] MEDS: MAGNESIUM OXIDE 400 MG TAB PO SCH (12:30)
--- NOTE | 2020-12-28 14:31 | P.PN ---
Subjective Progress Note Date: 12/28/20 This is a pleasant 75-year-old gentleman who presented with dyspnea and pneumonia. He had episode of GI bleeding and subsequent syncopal episode. He has a history of pneumonectomy and non-small cell cancer, paroxysmal atrial fibrillation, permanent pacemaker implantation. He underwent upper endoscopy [facility] Dr. Esquivel and was found to have moderate gastritis, mild duodenitis with moderate sized hiatal hernia. Anticoagulation continues to be on hold. He is scheduled to undergo colonoscopy tomorrow with Dr. Erika Wan to evaluate for lower GI bleeding. Upon examination the patient is resting fairly in bed. He complains of a headache but is otherwise feeling okay. He does complain of some dyspnea on exertion. Labs this morning were reviewed and showed hemoglobin 8.1, white blood cell count 21.1 down from 31.5, BUN 21, creatinine 0.72. He continues to be followed by pulmonary for pneumonia with sepsis. Objective - Vital Signs Vital signs: Vital Signs Temp 97.7 F 12/28/20 12:00 Pulse 105 H 12/28/20 12:00 Resp 20 12/28/20 12:00 BP 114/73 12/28/20 12:00 Pulse Ox 94 L 12/28/20 12:00 Intake & Output 12/27/20 12/28/20 12/28/20 18:59 06:59 18:59 Intake Total 640 240 360 Output Total 0 Balance 640 240 360 Weight 75.2 kg 75.2 kg Intake: IV 160 .9nS 60 Piperacillin-Tazobactam 3 100 .375 gm In Sodium Chloride 0.9% 100 ml @ 25 mls/hr IVPB Q8HR [facility] Rx# :[id number] Oral 480 240 360 Output: Urine 0 Other: Voiding Method Urinal Urinal # Voids 1 # Bowel Movements 1 1 - Exam PHYSICAL EXAMINATION: HEENT: Head is atraumatic, normocephalic. Pupils equal, round. Neck is supple. There is no elevated jugular venous pressure. HEART EXAMINATION: Heart sounds regular, S1 and S2 with a systolic murmur. CHEST EXAMINATION: Lungs are clear to auscultation. No chest wall tenderness is noted on palpation or with deep breathing. ABDOMEN: Soft, nontender. Bowel sounds are heard. No organomegaly noted. EXTREMITIES: 2+ peripheral pulses with no evidence of peripheral edema and no calf tenderness noted. NEUROLOGIC patient is awake, alert and oriented x3. . - Labs CBC & Chem 7: 12/28/20 05:36 12/28/20 05:36 Labs: Abnormal Lab Results - Last 24 Hours (Table) 12/28/20 12/28/20 Range/Units 05:36 05:36 WBC 21.1 H (3.8-10.6) k/uL RBC 2.76 L (4.30-5.90) m/uL Hgb 8.1 L (13.0-17.5) gm/dL Hct 25.0 L (39.0-53.0) % RDW 19.7 H (11.5-15.5) % BUN 21 H (9-20) mg/dL Glucose 107 H (74-99) mg/dL Calcium 6.8 L (8.4-10.2) mg/dL Microbiology - Last 24 Hours (Table) 12/23/20 12:30 Blood Culture - Preliminary Blood No Growth after 96 hours 12/23/20 12:15 Blood Culture - Preliminary Blood No Growth after 96 hours Assessment and Plan Assessment: #1 GI bleed, awaiting further workup with colonoscopy to be done tomorrow #2 atrial fibrillation, anticoagulation on hold for now #3 status post permanent pacemaker implantation #4 syncope, probable orthostatic hypotension #5 acute respiratory failure secondary to community-acquired pneumonia with se psis #6 history of lobectomy due to lung cancer Plan: From cardiac standpoint medications were reviewed and we will continue the same. Continue to follow closely with GI for recommendations regarding anticoagulation. We will continue to follow the patient and provide further recommendations accordingly. ST[employer]ING [employer]IST note has been reviewed, I agree with a documented findings and plan of care. Patient was seen and examined.
[2020-12-28] MEDS ORDERED: PEG 3350-NA SULF,BICARB,CL/KCL 4,000 ML BOTTLE PO ONE (15:00)
[2020-12-28] MEDS: AMITRIPTYLINE HCL 50 MG TAB PO SCH (20:02)
[2020-12-28] MEDS: ATORVASTATIN 80 MG TAB PO SCH (20:02)
[2020-12-29] MEDS: LEVOTHYROXINE 50 MCG TAB PO SCH (05:31)
[2020-12-29] MEDS ORDERED: PHENYLEPHRINE-0.9% NACL SYG 1,000 MCG/10 ML SYRINGE ONE (07:00)
[2020-12-29] MEDS ORDERED: PROPOFOL 10 MG/ML 20 ML VIAL IV ONE (07:00)
[2020-12-29] MEDS ORDERED: IV FLUID CONTINUATION 1,000 ML IV ONE (07:01)
--- NOTE | 2020-12-29 07:23 | P.PCN ---
Date of Procedure: 12/29/20 Procedure(s) Performed: BRIEF HISTORY: Patient is a 75-year-old pleasant white male scheduled for an upper endoscopy as a part of evaluation of anemia and black tarry stools. He had an upper endoscopy done by Dr. Greenwood 2 days ago that showed moderate gastritis, esophagitis and hiatal hernia. Xarelto has been on hold for the last 3 days. PROCEDURE PERFORMED: Colonoscopy with biopsy. PREOPERATIVE DIAGNOSIS: Anemia and GI bleed. IV sedation per Anesthesia. PROCEDURE: After informed consent was obtained, the patient, was brought into the endoscopy unit. IV sedation was administered by Anesthesia under continuous monitoring. Digital rectal examination was normal. Initially the Olympus CF-160 flexible video colonoscope was then inserted in the rectum, gradually advanced into the cecum without any difficulty. Careful examination was performed as the scope was gradually being withdrawn. Ileocecal valve and the appendiceal orifice were visualized and appeared normal. Prep was excellent. Mucosa of the cecum, ascending colon appeared normal. The transverse colon there was a 5 mm flat shawn yp removed by cold biopsy. In the descending colon there was another 3 mm polyp that was removed by cold biopsy. Scattered left sided diverticulosis seen. Rest of the, transverse colon, descending colon, sigmoid colon, and rectum appeared normal. Retroflexion was performed in the rectum and no lesions were seen. The patient tolerated the procedure well. IMPRESSION: 5 mm transverse colon polyp status post removal by cold biopsy 3 mm descending colon polyp status post biopsy . Scattered sigmoid diverticulosis Small internal hemorrhoids RECOMMENDATIONS: Findings of this examination were discussed with the patient as well as his family. He was advised to follow with the biopsy results. At this time anticoagulation can be resumed. Diet will be advanced as tolerated..
[2020-12-29 08:11] LABS: ALT 18 U/L (4-49); AST 36 U/L (17-59); African American GFR (CKD) >90 (>60 ml/min/1.73 sqM); Albumin 2.3 g/dL (3.5-5.0); Alkaline Phosphatase 142 U/L (38-126); Anion Gap 7 mmol/L; Blood Urea Nitrogen 17 mg/dL (9-20); Calcium 6.5 mg/dL (8.4-10.2); Carbon Dioxide 24 mmol/L (22-30); Chloride 110 mmol/L (98-107); Glucose 98 mg/dL (74-99); Non-African American GFR(CKD) 86 (>60 ml/min/1.73 sqM); Sodium 141 mmol/L (137-145); Total Bilirubin 2.2 mg/dL (0.2-1.3); Total Protein 4.6 g/dL (6.3-8.2)
[2020-12-29 08:17] LABS: Anisocytosis Moderate; Basophils % (A) 0 %; Eosinophils # (A) 0.1 k/uL (0-0.7); Eosinophils % (A) 1 %; HCT 23.5 % (39.0-53.0); HGB 7.5 gm/dL (13.0-17.5); Hypochromasia Moderate; Lymphocytes # (A) 1.3 k/uL (1.0-4.8); Lymphocytes % (A) 8 %; MCH 28.6 pg (25.0-35.0); MCHC 32.1 g/dL (31.0-37.0); MCV 89.2 fL (80.0-100.0); Mean Platelet Volume 9.1; Monocytes # (A) 2.1 k/uL (0-1.0); Monocytes % (A) 12 %; Neutrophils # (A) 13.8 k/uL (1.3-7.7); Neutrophils % (A) 78 %; Platelet Count 229 k/uL (150-450); Poikilocytosis Slight; RBC 2.64 m/uL (4.30-5.90); RDW 20.2 % (11.5-15.5); WBC 17.6 k/uL (3.8-10.6)
[2020-12-29 08:31] LABS: Potassium 3.5 mmol/L (3.5-5.1)
[2020-12-29] MEDS: PANTOPRAZOLE 40 MG/10 ML VIAL IVP SCH ×2 (09:10→20:55)
[2020-12-29] MEDS: METOPROLOL SUCCINATE (ER) 100 MG TAB.ER.24H PO SCH (09:10)
[2020-12-29] MEDS: MECLIZINE 12.5 MG TAB PO SCH (09:11)
[2020-12-29] MEDS: PIPERACILLIN-TAZOBACTAM 3.375 GM in SODIUM CHLORIDE 0.9% 100 ML IVPB SCH ×3 (09:11→23:56)
[2020-12-29] MEDS: LOSARTAN 25 MG TAB PO SCH (09:11)
[2020-12-29] MEDS ORDERED: FUROSEMIDE 10 MG/ML 2 ML VIAL IV ONE (11:09)
[2020-12-29] MEDS ORDERED: POTASSIUM CHLORIDE ER 20 MEQ TAB.ER PO STA (11:30)
--- NOTE | 2020-12-29 11:32 | P.PN ---
Subjective Progress Note Date: 12/29/20 HISTORY OF PRESENT ILLNESS: This is a 75-year-old male patient of mine with past medical history of non-small cell lung cancer diagnosed in 2008 status post lobectomy, remote history of tobacco use, remote history of alcohol abuse, alcoholic peripheral neuropathy, hypertension, coronary artery disease, paroxysmal atrial fibrillation, hypothyroidism. Patient was last seen in the office on 09/12 and no medication changes were made at that time. The patient developed shortness of breath that had been going on for about one week and worsening with exertion. No significant cough. Patient presented to [facility] emergency center he was found to be afebrile but heart rate was 112-128, blood pressure 91/60 was repeated 136/72, pulse 88% on room air. EKG was sinus tachycardia. WBC 21.2, hemoglobin 11.2, platelet count 229. Platelets were normal. BUN 36 and creatinine 1.25. Blood sugar 136. INR 6.0. Coronavirus not detected. Lactic acid 3.3 troponin negative. Liver function tests were normal, bilirubin 2.9. ProBNP 1780. Chest x-ray shows right-sided patchy airspace disease. Complete opacification of the left hemithorax status post p acer placement. CT angiogram of the chest reveals groundglass opacities in the right lung. Pulmonary edema and atypical pneumonia should be considered. Patient admitted to the [facility] floor consult requested with pulmonary medicine 12/24: Patient states that his cough and shortness of breath are improving. He is still on O2 at 2 L with pulse ox of 94-98%. His been afebrile. Heart rate 107, blood pressure 114/56. Repeat blood work reveals WBC 37.1, hemoglobin 9.4, platelet count 251. Repeat INR Repeat chest x-ray reveals no significant change. Patient has been followed by pulmonary medicine with recommendations to continue Zosyn and nebulizer treatments. manager government has ordered ordered rollator for the patient. 12/25: Notified this morning that patient had a syncopal episode last night and also having black liquid stools. Vitamin K 5mg oral ordered, stat labs, transfer into the ICU. Pulmonary was updated. One unit of packed RBCs ordered. Patient states he is feeling a little tired. Protonix changed to twice daily. Patient admits to taking Aleve at home and has tenderness in the epigastric area. 12/26: Patient is seen today in the intensive care unit. He continues to have black tarry stools. He did go into atrial fibrillation with RVR and on Cardizem drip. Repeat INR today is 1.2. He is status post 1 unit of packed RBCs and hemoglobin is 8.4. GI is on consult with plan for EGD. Patient is followed by cardiology, pulmonary medicine and gastroenterology. 12/27: Patient remains in the intensive care unit. He is on a Cardizem drip and heart rate is 105. Patient denies having any dizziness. He did have bowel movement this morning that was black. He does have tenderness in upper quadrants. He underwent EGD yesterday which revealed moderate gastritis, mild one night as, moderate size hiatal hernia, biopsies of the duodenum, antrum and body were obtained. Patient was cleared by GI to resume diet but continue to hold anticoagulation until hemoglobin stabilized. Patient is continued on Protonix twice daily. Patient has been advised to avoid all nonsteroidal anti- inflammatory use including Aleve. Dr. Jean Marie Pinon will schedule patient for colonos copy on Wednesday Repeat hemoglobin is 8, WBC 31.5, platelet count 278. BUN 27 creatinine 0.83. Repeat chest x-ray reveals slight improvement of aeration of the right lung. The patient is also continued to be followed by cardiology and IV Cardizem to be discontinued today. Coumadin remains on hold. 12/28: Patient is sitting up in bed in no apparent distress, he appears to be extremely weak today, he denies any chest pain, shortness breath, he continues to be generally weak, is scheduled to go for colonoscopy tomorrow morning, he will start the prep this afternoon, I spoke with the patient to talk to physical therapy about going to [facility] for physical therapy and rehabilitation after his discharge from the hospital, he continues to be off blood thinner for now. 12/29: Patient underwent colonoscopy earlier today by Dr. Wan that showed 2 polyps with the results of the biopsy, scattered diverticulosis and internal hemorrhoids, patient was advised to advance his diet, continue with current treatment plan, continue with physical therapy evaluation, the plan is to transfer the patient to [facility] hopefully tomorrow morning, patient will be given Lasix 20 mg IV push 1, decrease amitriptyline to 25 mg at the time. REVIEW OF SYSTEMS: Constitutional: No documented fever, no chills, no night sweats. positive for weight loss. Reports weakness, reports fatigue no lethargy. No daytime sleepiness. HEENT: No headache. No blurred vision or double vision, no loss of vision. Hard of Hearing, no ringing in the ears, no dizziness. No nasal drainage or congestion. No epistaxis. No sore throat. Lungs: Reports shortness of breath, reports cough, reports sputum production. Reports wheezing. Reports dyspnea with activity. Cardiovascular: No chest pain, no lower extremity edema. positive for palpitations. No paroxysmal nocturnal dyspnea. No orthopnea. No lightheadedness or dizziness. had syncope due to GI bleed 2 days ago. Abdominal: Reports abdominal pain. No nausea, vomiting. Reported diarrhea. No constipation. Reported bloody or tarry stools reports loss of appetite. Genitourinary: No dysuria, increased frequency, urgency. No urinary retention. Musculoskeletal: No myalgias. positive for muscle weakness, positive for gait dysfunction, frequent falls. positive for back pain and neck pain. Integumentary: No wounds, no lesions multiple bruises, positive for nail changes Neurologic: No aphasia. No facial droop. No change in mentation. No head injury. No headache. No paralysis. No paresthesia. Psychiatric: positive for depression and anxiety. Endocrine: positive for weight loss. PHYSICAL EXAMINATION: General: This is a 75-year-old male resting in bed with mild distress appears with flat affect and appears depressed. HEENT: Head is atraumatic, normocephalic, pupils were equal round reactive to light and recommendation, extraocular muscle movement were intact, sclera nonicteric, conjunctivae were pale, mucous membranes of the mouth are somewhat dry. Neck: Supple, no JVP, normal carotid upstroke bilaterally, no lymphadenopathy. Chest: Decreased breath sounds at the bases, few rhonchi, no wheezes, no chest wall tenderness, no intercostal retractions. Heart: First heart sound is normal, second heart sounds normal irregularlt irregular, there is PPM in the left upper precordium there is ZOYA 2/6 located at the left sternal border. Abdomen: Soft, epigastric tenderness, there is left lower quadrant tenderness as well along with minimal guarding, positive bowel sounds Extremities: There is trace edema, no calf tenderness, positive for Hallux valgus bilaterally with significant deformities in both feet, DP +1 bilaterally Neurologic examination: Patient is awake alert and oriented 3, cranial nerves II-12 appear grossly intact, muscle power were 4 out of 5 in upper extremities and 3 out of 5 in bilateral lower extremities, deep tendon reflexes normal bilaterally. ASSESSMENT AND PLAN: 1. Acute hypoxic respiratory failure secondary to pneumonia and sepsis, possible gram-negative pneumonia. Continue Zosyn 3.375 g IV piggyback every 8 hours, continue Zithromax 250 mg orally once every day, continue nebulized treatment, continue oxygen support. 2. Lactic acidosis secondary to sepsis. Post IV fluid resuscitation has resolved. 3. Acute blood loss anemia, acute blood loss anemia secondary to gastritis due to Coumadin and Aleve use. Continued to hold cold Coumadin. Transfused 1 unit packed RBCs. Patient had a colonoscopy that showed 2 polyps in the transverse and descending colon along with sigmoid diverticulosis and internal hemorrhoids. Patient will be given iron infusion 125 mg IV piggyback 1. 4. History of non-small cell lung cancer in 2008 status post left pneumonectomy. 5. Hypercoagulopathy secondary to sepsis and Coumadin use. Coumadin on hold. 6. Hypertension and hypertensive cardiovascular disease. Continue losartan 50 mg daily, Toprol-XL 100 mg daily 7. Hyperlipidemia. Continue atorvastatin 80 mg at bedtime. 8. Supraventricular tachycardia secondary to sepsis. Treat underlying cause. 9. Paroxysmal atrial fibrillation on chronic Coumadin with episode of RVR. Hold Coumadin, continue Toprol-XL 100 mg orally once every day, monitor the patient blood pressure very closely. 10. History of sick sinus syndrome status post pacemaker implantation, stable. 11. Alcoholic peripheral neuropathy. Continue amitriptyline 50 mg at bedtime 12. Hypothyroidism. Continue levothyroxine 50 g daily. 13. GI prophylaxis. Protonix 40 mg daily. 14. DVT prophylaxis. Hold Coumadin due to hypercoagulopathy. 15. Medical debility. Physical therapy evaluation for possible subacute rehabilitation. 16. Fluid overload. Patient will be given Lasix 20 mg IV push 1, repeat chest x-ray tomorrow morning. 17. Patient is full code. Objective - Vital Signs Vital signs: Vital Signs Temp 98.6 F 12/29/20 08:00 Pulse 107 H 12/29/20 08:00 Resp 18 12/29/20 08:00 BP 118/64 12/29/20 08:00 Pulse Ox 95 12/29/20 08:00 Intake & Output 12/28/20 12/29/20 12/29/20 18:59 06:59 18:59 Intake Total 860 2500 200 Balance 860 2500 200 Weight 75.2 kg 76.3 kg Intake: IV 200 Intake, IV Titration 100 Amount Piperacillin-Tazobactam 3 100 .375 gm In Sodium Chloride 0.9% 100 ml @ 25 mls/hr IVPB Q8HR [facility] Rx# :[id number] Oral 760 2500 Other: Voiding Method Urinal # Voids 1 # Bowel Movements 1 - Labs CBC & Chem 7: 12/29/20 07:37 12/29/20 07:37 Labs: Abnormal Lab Results - Last 24 Hours (Table) 12/29/20 12/29/20 Range/Units 07:37 07:37 WBC 17.6 H (3.8-10.6) k/uL RBC 2.64 L (4.30-5.90) m/uL Hgb 7.5 L (13.0-17.5) gm/dL Hct 23.5 L (39.0-53.0) % RDW 20.2 H (11.5-15.5) % Neutrophils # 13.8 H (1.3-7.7) k/uL Monocytes # 2.1 H (0-1.0) k/uL Chloride 110 H (98-107) mmol/L Calcium 6.5 L (8.4-10.2) mg/dL Total Bilirubin 2.2 H (0.2-1.3) mg/dL Alkaline Phosphatase 142 H (38-126) U/L Total Protein 4.6 L (6.3-8.2) g/dL Albumin 2.3 L (3.5-5.0) g/dL Microbiology - Last 24 Hours (Table) 12/23/20 12:30 Blood Culture - Preliminary Blood No Growth after 120 hours 12/23/20 12:15 Blood Culture - Preliminary Blood No Growth after 120 hours
[2020-12-29] MEDS ORDERED: SODIUM FERRIC GLUCONAT-SUCROSE 125 MG in SODIUM CHLORIDE 0.9% 100 ML IVPB ONE (12:00)
--- NOTE | 2020-12-29 12:04 | P.PN ---
Subjective Progress Note Date: 12/29/20 Principal diagnosis: History of lung cancer, pneumonia, GI bleeding This is a 75-year-old white male patient of Dr. Oglesby with past medical history of COPD, former smoker, non-small cell lung cancer diagnosed in 2008, status post left pneumonectomy, remote history of alcohol abuse, and alcoholic peripheral neuropathy, hypertension, CAD, paroxysmal A. fib and hypothyroidism. His left pneumonectomy was performed by Dr. Ho. 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 Patient also recently had a permanent biventricular pacemaker inserted in July 2020 presenting with syncope and sick sinus syndrome, and this was done by Dr. Terry Costello. Patient had been sick at home for 3 or 4 days with worsening dyspnea, cough, and phlegm production. No chest pain, no hemoptysis, no leg pain or leg swelling, he did complain of fever, sister is at the bedside and the patient is hard of hearing and some of the history was provided by his sister. She stated that patient had been sick for close to one week. Chest x-ray in emergency department showed new right-sided patchy airspace disease, and complete opacification of left hemithorax status post left pneumonectomy. Patient is afebrile on presentation, his pulse ox is 88% on room air, patient is tachycardic, short of breath, his lab work showed a white blood cell count of 21.2, hemoglobin of 11.2, INR is 6.0, patient is on Coumadin for history of paroxysmal atrial fibrillation, his d-dimer was 0.80, electrolytes were within normal limits, B1 is 36 creatinine is 1.25, plasma lactic acid was 3.3, proBNP was 1780, troponin was 0.016, COVID-19 PCR test was negative. Patient was satting 98% on 2 L, is awake and alert, oriented 3, there is to be in no acute distress, KG showed sinus tachycardia with a rate of 122 BPM, patient was started on IV hydration with 0.9 normal saline infusing at 130 ML per hour, Zosyn and azithromycin were started for antibiotic coverage, patient was given a breathing treatment. Progress note dated 12/24/2020. This is a 75-year-old male who was admitted with a diagnosis of acute hypoxemic respiratory failure secondary to community-acquired pneumonia involving the right lung. The patient has a prior history of left pneumonectomy for non-small cell lung cancer in 2008. He currently does not smoke. He is feeling better. He is less short of breath. He's currently on oxygen therapy at 3 L. In addition, he has a history of hypothyroidism, CAD, hypertension, alcohol abuse with alcoholic peripheral neuropathy, paroxysmal atrial fibrillation, sick sinus syndrome, status post pacemaker implantation, and of course COPD. No new labs today. Chest x-ray from today continues to show extensive airspace disease in the right lung. The left lung is opacified secondary to previous left pneumonectomy. Progress note dated 12/25/2020. This is a 75-year-old male, that was seen in room 462 today. He was admitted with a diagnosis of acute hypoxemic respiratory failure secondary to community- acquired pneumonia involving the right lung. The patient has a previous history of left pneumonectomy done by Dr. Ho, for non-small cell lung cancer. This was done in 2008. Currently does not smoke. Although yesterday was feeling better from the pulmonary standpoint, apparently last night, he became very weak. He also became more short of breath and required more oxygen. Apparently he had a syncopal episode or an episode of low blood pressure. He also had 2 bowel movements which were black, and there were concerns that the patient was deteriorating, with a GI bleed. The primary service asked whether or not we could transfer the patient to the intensive care unit. We agreed to. The patient does have a history of hypothyroidism, CAD, hypertension, alcohol abuse, with alcoholic peripheral neuropathy, paroxysmal atrial relation, sick sinus syndrome, status post pacemaker insertion, and COPD. Today's labs include a PTT of 47.9 and an INR of 5.0. His hemoglobin is down to 7.8 from 9.4. White count is 36.71. Hematocrit 26.3, platelet count 265,000. Sodium potassium chloride CO2 all normal. Anion gap normal. BUN 35, with a creatinine 1.12. Progress note dated 12/26/2020. 75-year-old male seen today in the ICU, room 261. He was transferred there yesterday. The patient developed a GI bleed. More recently, he developed atrial fibrillation with RVR. The patient is currently on a Cardizem drip at 5 mg an hour, saline at 50 mL an hour, and oxygen at 4 L by nasal cannula. The patient did receive 1 unit of packed red blood cells. Today's hemoglobin was 8.4. He clinically is feeling much better and actually looks much better. White count 44.1, hemoglobin 8.4, hematocrit 27.5, platelet count 285,000. ET 12.4, INR 1.2. Sodium 141, potassium 4.1, chlorides 110, CO2 22, anion gap 9, BUN 24, with a creatinine 0.94. Chest x-ray from the , reveals an opacified left hemithorax consistent with previous left pneumonectomy, and patchy infiltrates in the right lung consistent with pneumonia. On 12/28/2019 with patient seen in follow-up in the intensive care unit, he is awake and alert, resting comfortably in bed, currently on 4 L of oxygen with a pulse ox of 96%, he is breathing comfortably, he appears to be in no acute dist ress, he is answering questions appropriately, he is oriented 3. He is on 0.9 normal seen at 20 ML per hour, Cardizem drip is currently is at 5 mg per hour, he is currently in the paced rhythm with underlying atrial fibrillation and the rate is currently controlled at 85-96 BPM. Blood pressure is stable, cardiology is following, his anticoagulation is currently on hold in view of his recent GI bleeding, overnight he had 2 black bowel movements per the nursing staff, abdomen is soft, no complaints of abdominal pain, no nausea or vomiting, today's hemoglobin is 8.0. Patient did receive 1 unit of packed red blood cells this admission, his last INR was yesterday of 1.2. Coumadin is on hold. She remains on Protonix 40 mg twice daily, he remains on Zosyn for possibility of pneumonia, on today's labs his white count is improving, he has had no fever or chills overnight, his breathing overall has improved, no complaints of chest discomfort. On 12/28/2020 patient seen in follow-up on selective care unit, he is awake and alert, in no acute distress, he is on 3 L of oxygen, his breathing comfortably, no increased cough or congestion, today's chest x-ray shows slight improvement in aeration of the right lung. He remains on Zosyn for abiotic coverage. Blood cultures have shown no growth so far. Leukocytosis continues to improve, and his white blood cell count is 21.1 down from 31.500 yesterday's labs, hemoglobin is 8.1, electrolytes and renal profile are unremarkable, patient has had no fever or chills. Denies any abdominal discomfort, his Coumadin remains on hold, GI service is following and patient is supposed to have colonoscopy tomorrow on 12/29/2020 for evaluation of lower GI bleeding. On 12/29/2000 patient seen in follow-up on selective care unit. Doing well, is currently on 2 L of oxygen pulse ox is 95%, breathing easier, yesterday's chest x-ray was showing slight improvement in aeration of the right lung. He remains on Zosyn for antibiotics. 7 no fever or chills, hemodynamically has been stable, immobile globin today 7.5, his white blood cell count is improving. Coumadin remains on hold, he had a colonoscopy today with biopsies. 5 monitor transverse colon polyp was removed, there was scattered sigmoid diverticulosis, and small internal hemorrhoids. Objective - Vital Signs Vital signs: Vital Signs Temp 98.6 F 12/29/20 08:00 Pulse 107 H 12/29/20 08:00 Resp 18 12/29/20 08:00 BP 118/64 12/29/20 08:00 Pulse Ox 95 12/29/20 08:00 Intake & Output 12/28/20 12/29/20 12/29/20 18:59 06:59 18:59 Intake Total 860 2500 200 Balance 860 2500 200 Weight 75.2 kg 76.3 kg Intake: IV 200 Intake, IV Titration 100 Amount Piperacillin-Tazobactam 3 100 .375 gm In Sodium Chloride 0.9% 100 ml @ 25 mls/hr IVPB Q8HR [facility] Rx# :[id number] Oral 760 2500 Other: Voiding Method Urinal # Voids 1 # Bowel Movements 1 - Exam GENERAL EXAM: Alert, very pleasant, hard of hearing, 75-year-old white male, on 3 L of oxygen, with pulse ox of 96% comfortable in no apparent distress. HEAD: Normocephalic/atraumatic. EYES: Normal reaction of pupils, equal size. Conjunctiva pink, sclera white. NOSE: Clear with pink turbinates. THROAT: No erythema or exudates. NECK: No masses, no JVD, no thyroid enlargement, no adenopathy. CHEST: No chest wall deformity. Symmetrical expansion. LUNGS: Equal air entry with no crackles, wheeze, rhonchi or dullness. CVS: Irregular rate and rhythm, normal S1 and S2, no gallops, no murmurs, no rubs ABDOMEN: Soft, nontender. No hepatosplenomegaly, normal bowel sounds, no guarding or rigidity. EXTREMITIES: No clubbing, no edema, no cyanosis, 2+ pulses and upper and lower extremities. MUSCULOSKELETAL: Muscle strength and tone normal. SPINE: No scoliosis or deformity SKIN: No rashes CENTRAL NERVOUS SYSTEM: Alert and oriented -3. No focal deficits, tone is normal in all 4 extremities. PSYCHIATRIC: Alert and oriented -3. Appropriate affect. Intact judgment and insight. - Labs CBC & Chem 7: 12/29/20 07:37 12/29/20 07:37 Labs: Abnormal Lab Results - Last 24 Hours (Table) 12/29/20 12/29/20 Range/Units 07:37 07:37 WBC 17.6 H (3.8-10.6) k/uL RBC 2.64 L (4.30-5.90) m/uL Hgb 7.5 L (13.0-17.5) gm/dL Hct 23.5 L (39.0-53.0) % RDW 20.2 H (11.5-15.5) % Neutrophils # 13.8 H (1.3-7.7) k/uL Monocytes # 2.1 H (0-1.0) k/uL Chloride 110 H (98-107) mmol/L Calcium 6.5 L (8.4-10.2) mg/dL Total Bilirubin 2.2 H (0.2-1.3) mg/dL Alkaline Phosphatase 142 H (38-126) U/L Total Protein 4.6 L (6.3-8.2) g/dL Albumin 2.3 L (3.5-5.0) g/dL Microbiology - Last 24 Hours (Table) 12/23/20 12:30 Blood Culture - Preliminary Blood No Growth after 120 hours 12/23/20 12:15 Blood Culture - Preliminary Blood No Growth after 120 hours Assessment and Plan Plan: Assessment: #1. Acute GI blood loss anemia, requiring transfusion with 1 unit of packed red blood cells, status post EGD on 12/26/2020 showing moderate gastritis, and mild duodenitis, moderate-sized hiatal hernia. Patient had a colonoscopy today, please refer to the report #2. Acute hypoxic respiratory failure related to acute community acquired pneumonia with sepsis, COVID-19 PCR was negative #3. Lactic acidosis related to sepsis secondary to pneumonia, improved #4. History of left pneumonectomy related to history of non-small cell lung cancer in 2008 #5. History of COPD #6. History of sick sinus syndrome with syncopal episodes, status post permanent by the pacemaker implantation in July 2020 #7. Paroxysmal A. fib on Coumadin, currently in paced mechanism #8. Supratherapeutic INR of 6.0, currently down to 1.2, Coumadin is on hold #9. Ex-smoker, in remission since 2010 #10. History of EtOH with alcoholic peripheral neuropathy, in remission #11. Hypertension #12. Coronary artery disease #13. Hypothyroidism Plan: Breathing comfortably No fever or chills Cultures are negative Continue Protonix Monitor for any recurrence of GI bleeding Coumadin remains on hold Colonoscopy results have been noted Follow-up chest x-ray improved calcitonin I performed a history & physical examination of the patient and discussed their management with my nurse practitioner, Marycarmen Lucero. I reviewed the nurse practitioner's note and agree with the documented findings and plan of care. Lung sounds are positive for diffuse wheezes throughout the lung boone. The findings and the impression was discussed with the patient. I attest to the documentation by the nurse practitioner. Time with Patient: Less than 30
[2020-12-29] MEDS: MAGNESIUM OXIDE 400 MG TAB PO SCH (12:20)
--- NOTE | 2020-12-29 15:49 | P.PN ---
Subjective Progress Note Date: 12/29/20 This is a pleasant 75-year-old gentleman who presented with dyspnea and pneumonia. He had episode of GI bleeding and subsequent syncopal episode. He was on warfarin at home and was also taking Aleve for pain. He has a history of pneumonectomy and non-small cell cancer, paroxysmal atrial fibrillation, pe rmanent pacemaker implantation. He underwent upper endoscopy with Dr. Esquivel and was found to have moderate gastritis, mild duodenitis with moderate sized hiatal hernia. Anticoagulation continues to be on hold. He is scheduled to undergo colonoscopy tomorrow with Dr. Erika Wan to evaluate for lower GI bleeding. Upon examination the patient is resting fairly in bed. He complains of a headache but is otherwise feeling okay. He does complain of some dyspnea on exertion. Labs this morning were reviewed and showed hemoglobin 8.1, white blood cell count 21.1 down from 31.5, BUN 21, creatinine 0.72. He continues to be followed by pulmonary for pneumonia with sepsis. 12/29/2020 Underwent colonoscopy this morning by Dr. Erika Wan which showed a 5 mm transverse colon polyp and a 3 mm descending colon polyp which both were biopsied, scattered sigmoid diverticulitis and small internal hemorrhoids. She recommended that anticoagulation could be resumed at this time. On examination patient is sitting up in a chair does not appear to be in any acute distress. He is overall feeling well. Objective - Vital Signs Vital signs: Vital Signs Temp 97.3 F L 12/29/20 12:00 Pulse 101 H 12/29/20 12:00 Resp 22 12/29/20 12:00 BP 126/60 12/29/20 12:00 Pulse Ox 96 12/29/20 12:00 Intake & Output 12/28/20 12/29/20 12/29/20 18:59 06:59 18:59 Intake Total 860 2500 440 Balance 860 2500 440 Weight 75.2 kg 76.3 kg Intake: IV 200 Intake, IV Titration 100 Amount Piperacillin-Tazobactam 3 100 .375 gm In Sodium Chloride 0.9% 100 ml @ 25 mls/hr IVPB Q8HR [facility] Rx# :[id number] Oral 760 2500 240 Other: Voiding Method Urinal # Voids 1 1 # Bowel Movements 1 1 - Exam PHYSICAL EXAMINATION: HEENT: Head is atraumatic, normocephalic. Pupils equal, round. Neck is supple. There is no elevated jugular venous pressure. HEART EXAMINATION: Heart sounds regular, S1 and S2 with a systolic murmur. CHEST EXAMINATION: Lungs are clear to auscultation. No chest wall tenderness is noted on palpation or with deep breathing. ABDOMEN: Soft, nontender. Bowel sounds are heard. No organomegaly noted. EXTREMITIES: 2+ peripheral pulses with no evidence of peripheral edema and no calf tenderness noted. NEUROLOGIC patient is awake, alert and oriented x3. . - Labs CBC & Chem 7: 12/29/20 07:37 12/29/20 07:37 Labs: Abnormal Lab Results - Last 24 Hours (Table) 12/29/20 12/29/20 Range/Units 07:37 07:37 WBC 17.6 H (3.8-10.6) k/uL RBC 2.64 L (4.30-5.90) m/uL Hgb 7.5 L (13.0-17.5) gm/dL Hct 23.5 L (39.0-53.0) % RDW 20.2 H (11.5-15.5) % Neutrophils # 13.8 H (1.3-7.7) k/uL Monocytes # 2.1 H (0-1.0) k/uL Chloride 110 H (98-107) mmol/L Calcium 6.5 L (8.4-10.2) mg/dL Total Bilirubin 2.2 H (0.2-1.3) mg/dL Alkaline Phosphatase 142 H (38-126) U/L Total Protein 4.6 L (6.3-8.2) g/dL Albumin 2.3 L (3.5-5.0) g/dL Microbiology - Last 24 Hours (Table) 12/23/20 12:30 Blood Culture - Final Blood No Growth after 144 hours 12/23/20 12:15 Blood Culture - Final Blood No Growth after 144 hours Assessment and Plan Assessment: #1 GI bleed, resolved #2 atrial fibrillation, anticoagulation has been on hold #3 status post permanent pacemaker implantation #4 syncope, probable orthostatic hypotension #5 acute respiratory failure secondary to community-acquired pneumonia with sepsis #6 history of lobectomy due to lung cancer Plan: From cardiac standpoint and has been discontinued. We will start the patient on Eliquis and check his coverage tomorrow. We will continue to follow the patient and provide further recommendations accordingly. PET CARETAKER note has been reviewed, I agree with a documented findings and plan of care. Patient was seen and examined.
[2020-12-29] MEDS: APIXABAN 5 MG TAB PO SCH (20:08)
[2020-12-29] MEDS: ATORVASTATIN 80 MG TAB PO SCH (20:55)
[2020-12-29] MEDS ORDERED: AMITRIPTYLINE HCL 25 MG TAB PO SCH (21:00)
[2020-12-30] MEDS: LEVOTHYROXINE 50 MCG TAB PO SCH (06:31)
--- NOTE | 2020-12-30 07:17 | XR ---
EXAMINATION TYPE: XR chest 1V portable DATE OF EXAM: 12/30/2020 Comparison: 12/27/2020 Clinical History: 75-year-old male pneumonia Findings: Left anterior chest wall pacemaker generator with right atrial and 2 right ventricular leads. Patient is status post left pneumonectomy with complete white out of the left hemithorax and leftward cardia c mediastinal shift. Patchy interstitial opacity remains at the right base. No pleural effusion on th e right. Impression: 1. Stable post left pneumonectomy changes. 2. Right basilar patchy infiltrate is relatively similar.
--- NOTE | 2020-12-30 07:42 | P.DS ---
Providers Date of admission: 12/23/20 12:30 Expected date of discharge: 12/30/20 Attending physician: Nat Oglesby Consults: 12/23/20 12:30 Consult Physician Routine Consulting Provider: Efrain Grijalva Consult Reason/Comments: dyspnea Do you want consulting provider notified?: Yes 12/25/20 09:18 Consult Physician Routine Consulting Provider: Efrain Grijalva Consult Reason/Comments: icu, GIB,syncope Do you want consulting provider notified?: Yes 12/25/20 14:53 Consult Physician Routine Consulting Provider: Luigi Esquivel Consult Reason/Comments: acute GIB, hypercoagulopathy Do you want consulting provider notified?: Yes 12/25/20 17:53 Consult Physician Routine Consulting Provider: Markus Bojorquez Consult Reason/Comments: afib rvr/ sinus tach Do you want consulting provider notified?: Yes Primary care physician: Nat Oglesby [facility] Course: HISTORY OF PRESENT ILLNESS: This is a 75-year-old male patient of [facility] with past medical history of non-small cell lung cancer diagnosed in 2008 status post lobectomy, remote history of tobacco use, remote history of alcohol abuse, alcoholic peripheral neuropathy, hypertension, coronary artery disease, paroxysmal atrial fibrillation, hypothyroidism. Patient was last seen in the office on 09/12 and no medication changes were made at that time. The patient developed shortness of breath that had been going on for about one week and worsening with exertion. No significant cough. Patient presented to [facility] emergency center he was found to be afebrile but heart rate was 112-128, blood pressure 91/60 was repeated 136/72, pulse 88% on room air. EKG was sinus tachycardia. WBC 21.2, hemoglobin 11.2, platelet count 229. Platelets were normal. BUN 36 and creatinine 1.25. Blood sugar 136. INR 6.0. Coronavirus not detected. Lactic acid 3.3 troponin negative. Liver function tests were normal, bilirubin 2.9. ProBNP 1780. Chest x-ray shows right-sided patchy airspace disease. Complete opacification of the left hemithorax status post pacer placement. CT angiogram of the chest reveals groundglass opacities in the right lung. Pulmonary edema and atypical pneumonia should be considered. Patient admitted to the [facility] floor consult requested with pulmonary medicine 12/24: Patient states that his cough and shortness of breath are improving. He is still on O2 at 2 L with pulse ox of 94-98%. His been afebrile. Heart rate 107, blood pressure 114/56. Repeat blood work reveals WBC 37.1, hemoglobin 9.4, platelet count 251. Repeat INR 6.7. Repeat chest x-ray reveals no significant change. Patient has been followed by pulmonary medicine with recommendations to continue Zosyn and nebulizer treatments. manager category has ordered ordered roll ator for the patient. 12/25: Notified this morning that patient had a syncopal episode last night and also having black liquid stools. Vitamin K 5mg oral ordered, stat labs, transfer into the ICU. Pulmonary was updated. One unit of packed RBCs ordered. Patient states he is feeling a little tired. Protonix changed to twice daily. Patient admits to taking Aleve at home and has tenderness in the epigastric area. 12/26: Patient is seen today in the intensive care unit. He continues to have black tarry stools. He did go into atrial fibrillation with RVR and on Cardizem drip. Repeat INR today is 1.2. He is status post 1 unit of packed RBCs and hemoglobin is 8.4. GI is on consult with plan for EGD. Patient is followed by cardiology, pulmonary medicine and gastroenterology. 12/27: Patient remains in the intensive care unit. He is on a Cardizem drip and heart rate is 105. Patient denies having any dizziness. He did have bowel movement this morning that was black. He does have tenderness in upper quadrants. He underwent EGD yesterday which revealed moderate gastritis, mild one night as, moderate size hiatal hernia, biopsies of the duodenum, antrum and body were obtained. Patient was cleared by GI to resume diet but continue to hold anticoagulation until hemoglobin stabilized. Patient is continued on Protonix twice daily. Patient has been advised to avoid all nonsteroidal anti- inflammatory use including Aleve. Dr. Jean Marie Pinon will schedule patient for colonoscopy on Wednesday Repeat hemoglobin is 8, WBC 31.5, platelet count 278. BUN 27 creatinine 0.83. Repeat chest x-ray reveals slight improvement of aeration of the right lung. The patient is also continued to be followed by cardiology and IV Cardizem to be discontinued today. Coumadin remains on hold. 12/28: Patient is sitting up in bed in no apparent distress, he appears to be extremely weak today, he denies any chest pain, shortness breath, he continues to be generally weak, is scheduled to go for colonoscopy tomorrow morning, he will start the prep this afternoon, I spoke with the patient to talk to physical therapy about going to [facility] for physical therapy and rehabilitation after his discharge from the hospital, he continues to be off blood thinner for now. 12/29: Patient underwent colonoscopy earlier today by Dr. Pinon that showed 2 polyps with the results of the biopsy, scattered diverticulosis and internal hemorrhoids, patient was advised to advance his diet, continue with current treatment plan, continue with physical therapy evaluation, the plan is to transfer the patient to [facility] hopefully tomorrow morning, patient will be given Lasix 20 mg IV push 1, decrease amitriptyline to 25 mg at the time. 12/30: Patient is seen today on the cardiac stepdown unit. He has been afebrile, heart rate 98, blood pressure 109/46, pulse ox 92% on 2 L nasal cannula. Patient has been started on eliquis 5 mg twice daily and he is status post 1 dose of Ferrlecit infusion completed yesterday. Repeat blood work reveals hemoglobin of 8.9, WBC 21.9 electrolytes and renal function were normal. Total bilirubin 2.5, AST 37, ALT 19, alkaline phosphatase 167. Pro-calcitonin 0.18. The patient states that his breathing is better. He has had a bowel movement this morning. He is ready for discharge and discharge plan is for rehab. One additional dose of Lasix 20 mg IV will be given prior to discharge. Patient will be discharged to [facility] for subacute rehab once arrangements are completed. ASSESSMENT AND PLAN: 1. Acute hypoxic respiratory failure secondary to pneumonia and sepsis, possible gram-negative pneumonia. 2. Lactic acidosis secondary to sepsis. 3. Acute blood loss anemia secondary to acute GI bleed from gastritis due to Coumadin and Aleve use. 4. History of non-small cell lung cancer in 2008 status post left pneumonectomy. 5. Hypercoagulopathy secondary to sepsis and Coumadin use. 6. Hypertension and hypertensive cardiovascular disease. 7. Hyperlipidemia. 8. Supraventricular tachycardia secondary to sepsis. 9. Paroxysmal atrial fibrillation on chronic Coumadin with episode of RVR. 10. History of sick sinus syndrome status post pacemaker implantation, stable. 11. Alcoholic peripheral neuropathy. 12. Hypothyroidism. 13. Medical debility. 14. Fluid overload. DISCHARGE PLAN [facility] Impression and plan of care have been directed as dictated by the signing physician. Jada Burr nurse practitioner acting as scribe for signing physician. Patient Condition at Discharge: Good Plan - Discharge Summary Discharge Rx Participant: Yes New Discharge Prescriptions: New Ipratropium-Albuterol Nebulize [Duoneb 0.5 mg-3 mg/3 ml Soln] 3 ml INHALATION RT-Q4H PRN ml PRN Reason: shortness of breath Pantoprazole Sodium [Protonix] 40 mg PO AC-BID #60 tablet.dr Acetaminophen Tab [Tylenol] 650 mg PO Q6HR PRN tab PRN Reason: Fever And/ Or Pain Azithromycin [Zithromax] 250 mg PO DAILY #5 tab Apixaban [Eliquis] 5 mg PO BID #60 tab Continue Atorvastatin [Lipitor] 80 mg PO HS Potassium Chloride ER [K-Dur 10] 10 meq PO DAILY PRN PRN Reason: Edema Meclizine [Antivert] 12.5 mg PO DAILY Levothyroxine Sodium [Synthroid] 50 mcg PO DAILY Magnesium Oxide 400 mg PO DAILY@1300 Metoprolol Succinate (ER) [Toprol XL] 100 mg PO DAILY Hydrocortisone Cream [Hydrocortisone 2.5% Cream] 1 applic TOPICAL BID PRN PRN Reason: Rash Changed Losartan [Cozaar] 25 mg PO DAILY #30 tab Amitriptyline HCl [Elavil] 25 mg PO HS #0 Furosemide [Lasix] 20 mg PO DAILY #0 Discontinued Warfarin [Coumadin] 5 mg PO SUTH@2100 Warfarin [Coumadin] 2.5 mg PO MOTUWEFRSA@2100 Discharge Medication List Atorvastatin [Lipitor] 80 mg PO HS 06/11/20 [History] Levothyroxine Sodium [Synthroid] 50 mcg PO DAILY 06/11/20 [History] Meclizine [Antivert] 12.5 mg PO DAILY 06/11/20 [History] Potassium Chloride ER [K-Dur 10] 10 meq PO DAILY PRN 06/11/20 [History] Hydrocortisone Cream [Hydrocortisone 2.5% Cream] 1 applic TOPICAL BID PRN 12/23/20 [History] Magnesium Oxide 400 mg PO DAILY@1300 12/23/20 [History] Metoprolol Succinate (ER) [Toprol XL] 100 mg PO DAILY 12/23/20 [History] Acetaminophen Tab [Tylenol] 650 mg PO Q6HR PRN tab 12/30/20 [Rx] Amitriptyline HCl [Elavil] 25 mg PO HS #0 12/30/20 [Rx] Apixaban [Eliquis] 5 mg PO BID #60 tab 12/30/20 [Rx] Azithromycin [Zithromax] 250 mg PO DAILY #5 tab 12/30/20 [Rx] Furosemide [Lasix] 20 mg PO DAILY #0 12/30/20 [Rx] Ipratropium-Albuterol Nebulize [Duoneb 0.5 mg-3 mg/3 ml Soln] 3 ml INHALATION RT-Q4H PRN ml 12/30/20 [Rx] Losartan [Cozaar] 25 mg PO DAILY #30 tab 12/30/20 [Rx] Pantoprazole Sodium [Protonix] 40 mg PO AC-BID #60 tablet. 12/30/20 [Rx] Follow up Appointment(s)/Referral(s): Nat Oglesby MD [Primary Care Provider] - 1 Week (at [facility] ) Discharge Disposition: TRANSFER TO SNF/ECF
[2020-12-30] MEDS ORDERED: FUROSEMIDE 10 MG/ML 2 ML VIAL IV ONE (08:00)
[2020-12-30] MEDS: METOPROLOL SUCCINATE (ER) 100 MG TAB.ER.24H PO SCH (08:26)
[2020-12-30] MEDS: APIXABAN 5 MG TAB PO SCH (08:26)
[2020-12-30] MEDS: LOSARTAN 25 MG TAB PO SCH (08:26)
[2020-12-30] MEDS: PANTOPRAZOLE 40 MG/10 ML VIAL IVP SCH (08:26)
[2020-12-30] MEDS: MECLIZINE 12.5 MG TAB PO SCH (08:27)
[2020-12-30] MEDS: MAGNESIUM OXIDE 400 MG TAB PO SCH (08:27)
[2020-12-30 08:35] LABS: Anisocytosis Moderate; Basophils # (A) 0.1 k/uL (0-0.2); Basophils % (A) 0 %; Eosinophils # (A) 0.2 k/uL (0-0.7); Eosinophils % (A) 1 %; HCT 28.5 % (39.0-53.0); HGB 8.9 gm/dL (13.0-17.5); Hypochromasia Moderate; Lymphocytes # (A) 1.7 k/uL (1.0-4.8); Lymphocytes % (A) 8 %; MCH 28.9 pg (25.0-35.0); MCHC 31.4 g/dL (31.0-37.0); MCV 91.9 fL (80.0-100.0); Macrocytosis Slight; Mean Platelet Volume 9.6; Monocytes # (A) 2.6 k/uL (0-1.0); Monocytes % (A) 12 %; Neutrophils % (A) 78 %; Platelet Count 263 k/uL (150-450); Poikilocytosis Slight; RDW 20.4 % (11.5-15.5); WBC 21.9 k/uL (3.8-10.6)
[2020-12-30] MEDS ORDERED: AZITHROMYCIN 250 MG TAB PO SCH (09:00)
[2020-12-30 09:01] LABS: ALT 19 U/L (4-49); AST 37 U/L (17-59); African American GFR (CKD) >90 (>60 ml/min/1.73 sqM); Alkaline Phosphatase 167 U/L (38-126); Anion Gap 5 mmol/L; Blood Urea Nitrogen 16 mg/dL (9-20); Calcium 6.7 mg/dL (8.4-10.2); Carbon Dioxide 30 mmol/L (22-30); Chloride 106 mmol/L (98-107); Glucose 104 mg/dL (74-99); Non-African American GFR(CKD) 88 (>60 ml/min/1.73 sqM); Potassium 3.8 mmol/L (3.5-5.1); Sodium 141 mmol/L (137-145); Total Bilirubin 2.5 mg/dL (0.2-1.3); Total Protein 5.6 g/dL (6.3-8.2)
[2020-12-30] MEDS: ACETAMINOPHEN TAB 325 MG TAB PO PRN (10:17)
--- NOTE | 2020-12-30 10:41 | P.PN ---
Subjective Progress Note Date: 12/30/20 This is a 75-year-old white male patient of Dr. Oglesby with past medical history of COPD, former smoker, non-small cell lung cancer diagnosed in 2008, status post left pneumonectomy, remote history of alcohol abuse, and alcoholic peripheral neuropathy, hypertension, CAD, paroxysmal A. fib and hypothyroidism. His left pneumonectomy was performed by Dr. Ho. He does not follow with a medical program specialist. Patient also recently had a permanent biventricular pacemaker inserted in July 2020 presenting with syncope and sick sinus syndrome, and this was done by Dr. Terry Costello. Patient had been sick at home for 3 or 4 days with worsening dyspnea, cough, and phlegm production. No chest pain, no hemoptysis, no leg pain or leg swelling, he did complain of fever, sister is at the bedside and the patient is hard of hearing and some of the history was provided by his sister. She stated that patient had been sick for close to one week. Chest x-ray in emergency department showed new right-sided patchy airspace disease, and complete opacification of left hemithorax status post left pneumonectomy. Patient is afebrile on presentation, his pulse ox is 88% on room air, patient is tachycardic, short of breath, his lab work showed a white blood cell count of 21.2, hemoglobin of 11.2, INR is 6.0, patient is on Coumadin for history of paroxysmal atrial fibrillation, his d-dimer was 0.80, e lectrolytes were within normal limits, B1 is 36 creatinine is 1.25, plasma lactic acid was 3.3, proBNP was 1780, troponin was 0.016, COVID-19 PCR test was negative. Patient was satting 98% on 2 L, is awake and alert, oriented 3, there is to be in no acute distress, KG showed sinus tachycardia with a rate of 122 BPM, patient was started on IV hydration with 0.9 normal saline infusing at 130 ML per hour, Zosyn and azithromycin were started for antibiotic coverage, patient was given a breathing treatment. Progress note dated 12/24/2020. This is a 75-year-old male who was admitted with a diagnosis of acute hypoxemic respiratory failure secondary to community-acquired pneumonia involving the right lung. The patient has a prior history of left pneumonectomy for non-small cell lung cancer in 2008. He currently does not smoke. He is feeling better. He is less short of breath. He's currently on oxygen therapy at 3 L. In addition, he has a history of hypothyroidism, CAD, hypertension, alcohol abuse with alcoholic peripheral neuropathy, paroxysmal atrial fibrillation, sick sinus syndrome, status post pacemaker implantation, and of course COPD. No new labs today. Chest x-ray from today continues to show extensive airspace disease in the right lung. The left lung is opacified secondary to previous left pneumonectomy. Progress note dated 12/25/2020. This is a 75-year-old male, that was seen in room 462 today. He was admitted with a diagnosis of acute hypoxemic respiratory failure secondary to community- acquired pneumonia involving the right lung. The patient has a previous history of left pneumonectomy done by Dr. Ho, for non-small cell lung cancer. This was done in 2008. Currently does not smoke. Although yesterday was feeling better from the pulmonary standpoint, apparently last night, he became very weak. He also became more short of breath and required more oxygen. Apparently he had a syncopal episode or an episode of low blood pressure. He also had 2 bowel movements which were black, and there were concerns that the patient was deteriorating, with a GI bleed. The primary service asked whether or not we could transfer the patient to the intensive care unit. We agreed to. The patient does have a history of hypothyroidism, CAD, hypertension, alcohol abuse, with alcoholic peripheral neuropathy, paroxysmal atrial relation, sick sinus syndrome, status post pacemaker insertion, and COPD. Today's labs include a PTT of 47.9 and an INR of 5.0. His hemoglobin is down to 7.8 from 9.4. White count is 36.71. Hematocrit 26.3, platelet count 265,000. Sodium potassium chloride CO2 all normal. Anion gap normal. BUN 35, with a creatinine 1.12. Progress note dated 12/26/2020. 75-year-old male seen today in the ICU, room 261. He was transferred there yesterday. The patient developed a GI bleed. More recently, he developed atrial fibrillation with RVR. The patient is currently on a Cardizem drip at 5 mg an hour, saline at 50 mL an hour, and oxygen at 4 L by nasal cannula. The patient did receive 1 unit of packed red blood cells. Today's hemoglobin was 8.4. He clinically is feeling much better and actually looks much better. White count 44.1, hemoglobin 8.4, hematocrit 27.5, platelet count 285,000. ET 12.4, INR 1.2. Sodium 141, potassium 4.1, chlorides 110, CO2 22, anion gap 9, BUN 24, with a creatinine 0.94. Chest x-ray from the , reveals an opacified left hemithorax consistent with previous left pneumonectomy, and patchy infiltrates in the right lung consistent with pneumonia. On 12/28/2019 with patient seen in follow-up in the intensive care unit, he is awake and alert, resting comfortably in bed, currently on 4 L of oxygen with a pulse ox of 96%, he is breathing comfortably, he appears to be in no acute distress, he is answering questions appropriately, he is oriented 3. He is on 0.9 normal seen at 20 ML per hour, Cardizem drip is currently is at 5 mg per hour, he is currently in the paced rhythm with underlying atrial fibrillation and the rate is currently controlled at 85-96 BPM. Blood pressure is stable, cardiology is following, his anticoagulation is currently on hold in view of his recent GI bleeding, overnight he had 2 black bowel movements per the nursing staff, abdomen is soft, no complaints of abdominal pain, no nausea or vomiting, today's hemoglobin is 8.0. Patient did receive 1 unit of packed red blood cells this admission, his last INR was yesterday of 1.2. Coumadin is on hold. She remains on Protonix 40 mg twice daily, he remains on Zosyn for possibility of pneumonia, on today's labs his white count is improving, he has had no fever or chills overnight, his breathing overall has improved, no complaints of chest discomfort. On 12/28/2020 patient seen in follow-up on selective care unit, he is awake and alert, in no acute distress, he is on 3 L of oxygen, his breathing comfortably, no increased cough or congestion, today's chest x-ray shows slight improvement i n aeration of the right lung. He remains on Zosyn for abiotic coverage. Blood cultures have shown no growth so far. Leukocytosis continues to improve, and his white blood cell count is 21.1 down from 31.500 yesterday's labs, hemoglobin is 8.1, electrolytes and renal profile are unremarkable, patient has had no fever or chills. Denies any abdominal discomfort, his Coumadin remains on hold, GI service is following and patient is supposed to have colonoscopy tomorrow on 12/29/2020 for evaluation of lower GI bleeding. On 12/29/2000 patient seen in follow-up on selective care unit. Doing well, is currently on 2 L of oxygen pulse ox is 95%, breathing easier, yesterday's chest x-ray was showing slight improvement in aeration of the right lung. He remains on Zosyn for antibiotics. no fever or chills, hemodynamically has been stable, immobile globin today 7.5, his white blood cell count is improving. Coumadin remains on hold, he had a colonoscopy today with biopsies. 5 monitor transverse colon polyp was removed, there was scattered sigmoid diverticulosis, and small internal hemorrhoids. On today's evaluation of 12/30/2020, the patient is being seen for a follow-up. As mentioned earlier, the patient is a post pneumonectomy who came in with respiratory distress and pneumonia and the patient was treated with IV Zosyn. Chest x-ray was showing improvement in the right lung pulmonary infiltrate. A repeat chest x-ray was done this morning of 12/30/2020 and a chest x-ray shows complete investigation of the left lung and there is some limited infiltration of the right lung base. Clinically is doing well. No hemoptysis. No pleurisy. The chest x-ray obviously has shown significant improvement in the right lung consolidation. In terms of his hemoglobin, the patient has a hemoglobin of 8.9. White cell count is at 21.9 which is improved considerably over the past 3 day s. Electrolytes are normal, renal function is normal, pro-calcitonin was at 0.13 Objective - Vital Signs Vital signs: Vital Signs Temp 97.8 F 12/30/20 08:00 Pulse 98 12/30/20 08:00 Resp 18 12/30/20 08:00 BP 129/69 12/30/20 08:00 Pulse Ox 92 L 12/30/20 08:00 Intake & Output 12/29/20 12/30/20 12/30/20 18:59 06:59 18:59 Intake Total 620 200 180 Output Total 250 1425 400 Balance 370 -1225 -220 Weight 77.2 kg Intake: IV 200 100 Piperacillin-Tazobactam 3 100 .375 gm In Sodium Chloride 0.9% 100 ml @ 25 mls/hr IVPB Q8HR [facility] Rx# :[id number] Intake, IV Titration 100 Amount Sodium Ferric Gluconat- 100 Sucrose 125 mg In Sodium Chloride 0.9% 100 ml @ 100 mls/hr IVPB ONCE ONE Rx#:[id number] Oral 420 180 Output: Urine 250 1425 400 Other: Voiding Method Urinal Urinal # Voids 1 # Bowel Movements 1 - Exam GENERAL EXAM: Alert, very pleasant, hard of hearing, 75-year-old white male, on 2 L of oxygen, with pulse ox of 96% comfortable in no apparent distress. HEAD: Normocephalic/atraumatic. EYES: Normal reaction of pupils, equal size. Conjunctiva pink, sclera white. NOSE: Clear with pink turbinates. THROAT: No erythema or exudates. NECK: No masses, no JVD, no thyroid enlargement, no adenopathy. CHEST: No chest wall deformity. Symmetrical expansion. LUNGS: Equal air entry with no crackles, wheeze, rhonchi or dullness. CVS: Irregular rate and rhythm, normal S1 and S2, no gallops, no murmurs, no rubs ABDOMEN: Soft, nontender. No hepatosplenomegaly, normal bowel sounds, no guarding or rigidity. EXTREMITIES: No clubbing, no edema, no cyanosis, 2+ pulses and upper and lower extremities. MUSCULOSKELETAL: Muscle strength and tone normal. SPINE: No scoliosis or deformity SKIN: No rashes CENTRAL NERVOUS SYSTEM: Alert and oriented -3. No focal deficits, tone is normal in all 4 extremities. PSYCHIATRIC: Alert and oriented -3. Appropriate affect. Intact judgment and insight. - Labs CBC & Chem 7: 12/30/20 07:26 12/30/20 07:26 Labs: Abnormal Lab Results - Last 24 Hours (Table) 12/29/20 12/30/20 12/30/20 Range/Units 07:37 07: 07: WBC 21.9 H (3.8-10.6) k/uL RBC 3.10 L (4.30-5.90) m/uL Hgb 8.9 L (13.0-17.5) gm/dL Hct 28.5 L (39.0-53.0) % RDW 20.4 H (11.5-15.5) % Neutrophils # 17.0 H (1.3-7.7) k/uL Monocytes # 2.6 H (0-1.0) k/uL Glucose 104 H (74-99) mg/dL Calcium 6.7 L (8.4-10.2) mg/dL Total Bilirubin 2.5 H (0.2-1.3) mg/dL Alkaline Phosphatase 167 H (38-126) U/L Total Protein 5.6 L (6.3-8.2) g/dL Albumin 3.0 L (3.5-5.0) g/dL Procalcitonin 0.18 H (0.02-0.09) ng/mL Microbiology - Last 24 Hours (Table) 12/23/20 12:30 Blood Culture - Final Blood No Growth after 144 hours 12/23/20 12:15 Blood Culture - Final Blood No Growth after 144 hours Assessment and Plan Plan: #1. Acute GI blood loss anemia, requiring transfusion with 1 unit of packed red blood cells, status post EGD on 12/26/2020 showing moderate gastritis, and mild duodenitis, moderate-sized hiatal hernia. Patient had a colonoscopy today, please refer to the report #2. Acute hypoxic respiratory failure related to acute community acquired pn [place] with sepsis, COVID-19 PCR was negative, and the repeat chest x-ray showed improvement in the right lung consolidation. Chest x-ray findings are improved and the patient is currently a still on IV Zosyn #3. Lactic acidosis related to sepsis secondary to pneumonia, improved #4. History of left pneumonectomy related to history of non-small cell lung cancer in 2008 #5. History of COPD #6. History of sick sinus syndrome with syncopal episodes, status post permanent by the pacemaker implantation in July 2020 #7. Paroxysmal A. fib on Coumadin, currently in paced mechanism #8. Supratherapeutic INR of 6.0, currently down to 1.2, Coumadin is of and the cultures of been essentially negative and he was switched to Eliquis #9. Ex-smoker, in remission since 2010 #10. History of EtOH with alcoholic peripheral neuropathy, in remission #11. Hypertension #12. Coronary artery disease #13. Hypothyroidism Plan: Breathing comfortably No fever or chills Clinically improving. The patient can be potentially discharged home on Zithromax to complete his treatment course. He is currently on 2 L about 2 by nasal cannula. No signs of any GI bleed. White cell count is improving. The pro-calcitonin is minimally elevated and the patient's anticoagulation is switched to Eliquis.Will need oxygen reevaluation to assess his home oxygen needs. The patient is likely going to rehabilitation and [facility] on the amoret
[2020-12-30 11:51] VITALS: BP 131/69; PULSE 83; RESP 16; TEMP 97.9
--- NOTE | 2020-12-30 12:22 | P.PN ---
Subjective This is a pleasant 75 showed male who presented to the hospital with pneumonia and shortness of breath. He had an episode of GI bleeding and subsequent syncope. He was on warfarin at home. He has a history of pneumonectomy secondary to non-small cell cancer, paroxysmal atrial fibrillation and permanent pacemaker implantation. He follows in the office with Dr. Pinon. He is seen and examined sitting up in no acute distress. He has no symptoms of chest discomfort, shortness of breath or dizziness. He underwent a colonoscopy revealing a 5 mm transverse colon polyp and a 3 mm descending colon polyp which both were biopsied. He also had scattered sigmoid diverticulitis and small internal hemorrhoids. Anticoagulation was resumed last evening. Blood pressure 131/69 heart rate 83 afebrile maintaining oxygen saturation on room air. Laboratory data reviewed, WBC 21.9, hemoglobin 8.9, platelets 263, sodium 141, potassium 3.8, creatinine 0.77. GENERAL: Well-appearing, well-nourished and in no acute distress. NECK: Supple without JVD or thyromegaly. LUNGS: Breath sounds clear to auscultation bilaterally. Respiration equal and unlabored. No wheezes, rales or rhonchi. HEART: Regular rate and rhythm with systolic ejection murmur at the base, no rubs or gallops. S1 and S2 heard. EXTREMITIES: Normal range of motion, 1-2+ bilateral lower extremity pitting edema. No clubbing or cyanosis. Peripheral pulses intact. ASSESSMENT GI bleed, resolved Paroxysmal atrial fibrillation on long-term anticoagulation Syncope, probable orthostatic hypotension Pneumonia with sepsis Permanent pacemaker implantation Hypertension Dyslipidemia PLAN Change his oral Lasix to daily rather than when necessary. Continue Eliquis for thromboembolic protection. Follow-up with Dr. Pinon upon discharge. Stable for discharge from a cardiac perspective. Nurse Practitioner note has been reviewed, I agree with a documented findings and plan of care. Patient was seen and examined. Objective - Vital Signs Vital signs: Vital Signs Temp 97.9 F 12/30/20 11:48 Pulse 83 12/30/20 11:48 Resp 16 12/30/20 11:48 BP 131/69 12/30/20 11:48 Pulse Ox 95 12/30/20 11:48 Intake & Output 12/29/20 12/30/20 12/30/20 18:59 06:59 18:59 Intake Total 620 200 360 Output Total 250 1425 400 Balance 370 -1225 -40 Weight 77.2 kg Intake: IV 200 100 Piperacillin-Tazobactam 3 100 .375 gm In Sodium Chloride 0.9% 100 ml @ 25 mls/hr IVPB Q8HR [facility] Rx# :[id number] Intake, IV Titration 100 Amount Sodium Ferric Gluconat- 100 Sucrose 125 mg In Sodium Chloride 0.9% 100 ml @ 100 mls/hr IVPB ONCE ONE Rx#:[id number] Oral 420 360 Output: Urine 250 1425 400 Other: Voiding Method Urinal Urinal # Voids 1 # Bowel Movements 1 - Labs CBC & Chem 7: 12/30/20 07:26 07 07:26 Labs: Abnormal Lab Results - Last 24 Hours (Table) 12/29/20 12/30/20 12/30/20 Range/Units 07:37 07:26 07:26 WBC 21.9 H (3.8-10.6) k/uL RBC 3.10 L (4.30-5.90) m/uL Hgb 8.9 L (13.0-17.5) gm/dL Hct 28.5 L (39.0-53.0) % RDW 20.4 H (11.5-15.5) % Neutrophils # 17.0 H (1.3-7.7) k/uL Monocytes # 2.6 H (0-1.0) k/uL Glucose 104 H (74-99) mg/dL Calcium 6.7 L (8.4-10.2) mg/dL Total Bilirubin 2.5 H (0.2-1.3) mg/dL Alkaline Phosphatase 167 H (38-126) U/L Total Protein 5.6 L (6.3-8.2) g/dL Albumin 3.0 L (3.5-5.0) g/dL Procalcitonin 0.18 H (0.02-0.09) ng/mL Microbiology - Last 24 Hours (Table) 12/23/20 12:30 Blood Culture - Final Blood No Growth after 144 hours 12/23/20 12:15 Blood Culture - Final Blood No Growth after 144 hours
--- NOTE | 2020-12-30 16:44 | P.PN ---
Subjective Progress Note Date: 12/30/20 Principal diagnosis: Pneumonia, anemia patient was seen and examined sitting up at the bedside. He denied any rectal bleeding or blood in the stool. He denies any abdominal pain, nausea, or vomiting. He is status post EGD and colonoscopy with no active bleeding noted. Hemoglobin is stable. Objective - Vital Signs Vital signs: Vital Signs Temp 97.8 F 12/30/20 08:00 Pulse 98 12/30/20 08:00 Resp 18 12/30/20 08:00 BP 129/69 12/30/20 08:00 Pulse Ox 92 L 12/30/20 08:00 Intake & Output 12/29/20 12/30/20 12/30/20 18:59 06:59 18:59 Intake Total 620 200 180 Output Total 250 1425 200 Balance 370 -1225 -20 Weight 77.2 kg Intake: IV 200 100 Piperacillin-Tazobactam 3 100 .375 gm In Sodium Chloride 0.9% 100 ml @ 25 mls/hr IVPB Q8HR [facility] Rx# :[id number] Intake, IV Titration 100 Amount Sodium Ferric Gluconat- 100 Sucrose 125 mg In Sodium Chloride 0.9% 100 ml @ 100 mls/hr IVPB ONCE ONE Rx#:[id number] Oral 420 180 Output: Urine 250 1425 200 Other: Voiding Method Urinal Urinal # Voids 1 # Bowel Movements 1 - Exam General appearance: The patient is alert, oriented, appears in no acute distress. HET: Head is normocephalic and atraumatic. Conjunctiva pink. Sclera anicteric. Neck: Supple without lymphadenopathy. Abdomen: Soft, nontender, nondistended with bowel sounds. No guarding or rigidity. Extremities: Normal skin color and turgor. No pedal edema Skin: No rashes, no jaundice Neurological: No focal deficits. Alert and oriented 3. - Labs CBC & Chem 7: 12/30/20 07:26 12/30/20 07:26 Labs: Abnormal Lab Results - Last 24 Hours (Table) 12/29/20 12/30/20 12/30/20 Range/Units 07:37 07: 07:26 WBC 21.9 H (3.8-10.6) k/uL RBC 3.10 L (4.30-5.90) m/uL Hgb 8.9 L (13.0-17.5) gm/dL Hct 28.5 L (39.0-53.0) % RDW 20.4 H (11.5-15.5) % Neutrophils # 17.0 H (1.3-7.7) k/uL Monocytes # 2.6 H (0-1.0) k/uL Glucose 104 H (74-99) mg/dL Calcium 6.7 L (8.4-10.2) mg/dL Total Bilirubin 2.5 H (0.2-1.3) mg/dL Alkaline Phosphatase 167 H (38-126) U/L Total Protein 5.6 L (6.3-8.2) g/dL Albumin 3.0 L (3.5-5.0) g/dL Procalcitonin 0.18 H (0.02-0.09) ng/mL Microbiology - Last 24 Hours (Table) 12/23/20 12:30 Blood Culture - Final Blood No Growth after 144 hours 12/23/20 12:15 Blood Culture - Final Blood No Growth after 144 hours Assessment and Plan (1) Melena Narrative/Plan: 75-year-old male with a past medical history significant for COPD, atrial fibrillation, alcohol abuse, hypothyroidism who presented with shortness of breath is being treated for pneumonia. Patient had supratherapeutic INR on presentation. He had multiple mild headache bowel movements and acute fall in hemoglobin. Suspicion was for upper GI bleed and patient underwent EGD. Unclear etiology may be related to gastritis, esophagitis peptic ulcer disease AVM or other etiology. However there was no active bleeding seen on his EGD and he had findings of gastritis, duodenitis, and a small hiatal hernia. Yesterday he underwent a colonoscopy which was significant for polyps, sigmoid diverticulosis, and small internal hemorrhoids with no active bleeding noted. Status: Acute Code(s): K92.1 - MELENA SNOMED Code(s): 0091656 (2) Anemia associated with acute blood loss Status: Acute Code(s): D62 - ACUTE POSTHEMORRHAGIC ANEMIA SNOMED Code(s): 076104018 (3) Pneumonia Status: Acute Code(s): J18.9 - PNEUMONIA, UNSPECIFIED ORGANISM SNOMED Code(s): 641197713 Plan: 1. Diet as tolerated 2. patient may resume anticoagulation 3. Patient underwent EGD and colonoscopy with no active bleeding Thank you for this consultation, we will sign off at this time. Dr. Jean Marie Pinon I agree with the dictator's note, documented as a scribe by Muriel Duggan.
== END 2020-12-30 15:35 | DRG 871 ==
LOC: EC 09:59 → 4SSUR 12:30 → 2SICU 12-25 10:02 → 3SCARD 12-27 12:14
PROVIDERS: ADMIT Internal Medicine; ATTEND Internal Medicine
PROC: 0DB78ZX Excision of Stomach, Pylorus, Via Natural or Artificial Opening Endoscopic, Diagnostic (ICD-10-PCS; 2020-12-26)
PROC: 0DB68ZX Excision of Stomach, Via Natural or Artificial Opening Endoscopic, Diagnostic (ICD-10-PCS; 2020-12-26)
PROC: 0DB98ZX Excision of Duodenum, Via Natural or Artificial Opening Endoscopic, Diagnostic (ICD-10-PCS; principal; 2020-12-26 08:55)
PROC: 0DBM8ZX Excision of Descending Colon, Via Natural or Artificial Opening Endoscopic, Diagnostic (ICD-10-PCS; 2020-12-29)
PROC: 0DBL8ZX Excision of Transverse Colon, Via Natural or Artificial Opening Endoscopic, Diagnostic (ICD-10-PCS; 2020-12-29)
DX: A41.9 Sepsis, unspecified organism (principal); K29.71 Gastritis, unspecified, with bleeding; J96.01 Acute respiratory failure with hypoxia; J15.6 Pneumonia due to other Gram-negative bacteria; I47.1 Supraventricular tachycardia; E87.2 Acidosis; J44.0 Chronic obstructive pulmonary disease with (acute) lower respiratory infection; D68.9 Coagulation defect, unspecified; D62 Acute posthemorrhagic anemia; K57.32 Diverticulitis of large intestine without perforation or abscess without bleeding; R65.20 Severe sepsis without septic shock; Z85.118 Personal history of other malignant neoplasm of bronchus and lung; Z90.2 Acquired absence of lung [part of]; Z20.822 Contact with and (suspected) exposure to COVID-19; Z79.890 Hormone replacement therapy; Z79.01 Long term (current) use of anticoagulants; G62.1 Alcoholic polyneuropathy; I48.0 Paroxysmal atrial fibrillation; E03.9 Hypothyroidism, unspecified; E78.5 Hyperlipidemia, unspecified; Z85.46 Personal history of malignant neoplasm of prostate; I49.5 Sick sinus syndrome; Z80.0 Family history of malignant neoplasm of digestive organs; Z82.49 Family history of ischemic heart disease and other diseases of the circulatory system; Z95.0 Presence of cardiac pacemaker; I25.10 Atherosclerotic heart disease of native coronary artery without angina pectoris; I95.1 Orthostatic hypotension; K29.80 Duodenitis without bleeding; K44.9 Diaphragmatic hernia without obstruction or gangrene; K64.8 Other hemorrhoids; I11.9 Hypertensive heart disease without heart failure; E87.70 Fluid overload, unspecified; F17.201 Nicotine dependence, unspecified, in remission; H91.90 Unspecified hearing loss, unspecified ear; K63.5 Polyp of colon; T45.515A Adverse effect of anticoagulants, initial encounter; Z79.899 Other long term (current) drug therapy
CPT/HCPCS: 36415; 43239; 45380; 71045; 71046; 71275; 80048; 80053; 83605; 83880; 84145; 84484; 85025; 85027; 85379; 85610; 85730; 86850; 86900; 86901; 86920; 87040; 87635; 88305; 90732; 93005; 93306; 94640; 94760; 99291

== ENCOUNTER 2021-10-19 22:19 | Inpatient (IN) | payer MEDICARE ==
[2021-10-19] MEDS ORDERED: SODIUM CHLORIDE 0.9% 500 ML 500 ML IV STA (22:33)
--- NOTE | 2021-10-19 22:52 | ED ---
Chest Pain HPI - General Stated Complaint: Fall Time Seen by Provider: 10/19/21 22:28 Source: patient, RN notes reviewed - History of Present Illness Initial Comments: This is a pleasant 76-year-old male with a history of coronary artery disease, hypertension, thyroid disorder. Patient has a pacemaker. Patient states that he blacked out at home and fell. Patient sustained a minor abrasion to his left shoulder. He is denying any significant pain. Patient denied any preceding symptomology. Denied any headache. Denied any chest pain. Denies any shortness of breath or abdominal pain. Patient states that he remembers getting up from his bed. Patient denying any other symptoms. Patient states He knows he was on the ground. Unknown down time. Sustained injuries to both his right elbow and left forearm. No headache, no fever or chills, no changes in vision or hearing, no sore throat or difficulty with speech, no neck pain, no chest pain or shortness of breath, no abdominal pain, no nausea or vomiting, no changes in urination or bowel movements, no numbness or tingling, no extremity pain, no skin rashes or lesions. - Related Data Home Medications Medication Instructions Recorded Confirmed Atorvastatin [Lipitor] 80 mg PO HS 06/11/20 12/23/20 Levothyroxine Sodium [Synthroid] 50 mcg PO DAILY 06/11/20 12/23/20 Meclizine [Antivert] 12.5 mg PO DAILY 06/11/20 12/23/20 Potassium Chloride ER [K-Dur 10] 10 meq PO DAILY PRN 06/11/20 12/23/20 Hydrocortisone Cream 1 applic TOPICAL BID PRN 12/23/20 12/23/20 [Hydrocortisone 2.5% Cream] Magnesium Oxide 400 mg PO DAILY@1300 12/23/20 12/23/20 Metoprolol Succinate (ER) [Toprol 100 mg PO DAILY 12/23/20 12/23/20 XL] Previous Rx's Medication Instructions Recorded Acetaminophen Tab [Tylenol] 650 mg PO Q6HR PRN tab 12/30/20 Amitriptyline HCl [Elavil] 25 mg PO HS #0 12/30/20 Apixaban [Eliquis] 5 mg PO BID #60 tab 12/30/20 Azithromycin [Zithromax] 250 mg PO DAILY #5 tab 07/26/21 Furosemide [Lasix] 20 mg PO DAILY #0 12/30/20 Ipratropium-Albuterol Nebulize 3 ml INHALATION RT-Q4H PRN ml 12/30/20 [Duoneb 0.5 mg-3 mg/3 ml Soln] Losartan [Cozaar] 25 mg PO DAILY #30 tab 12/30/20 Pantoprazole Sodium [Protonix] 40 mg PO AC-BID #60 tablet. 12/30/20 Allergies Allergy/AdvReac Type Severity Reaction Status Date / Time No Known Allergies Allergy Verified 12/23/20 10:09 Review of Systems ROS Statement: Those systems with pertinent positive or pertinent negative responses have been documented in the HPI. ROS Other: All systems not noted in ROS Statement are negative. EKG Findings - EKG Comments: EKG Findings:: 2256 shows a paced rhythm with a rate of 80, normal intervals otherwise. No evidence of acute ST or T-wave changes. When compared to the pr evious EKG. Rhythm is now paced. Past Medical History Past Medical History: Coronary Artery Disease (CAD), Hypertension, Thyroid Disorder Additional Past Medical History / Comment(s): vertigo History of Any Multi-Drug Resistant Organisms: None Reported Past Surgical History: Hernia Repair, Pacemaker Additional Past Surgical History / Comment(s): Left lung removed Past Anesthesia/Blood Transfusion Reactions: No Reported Reaction Type of Cardiac Device: Unknown Device Placement Date:: June, Past Psychological History: No Psychological Hx Reported Smoking Status: Never smoker Past Alcohol Use History: None Reported Past Drug Use History: None Reported - Past Family History Father Additional Family Medical History / Comment(s): Father at age 71 from a myocardial infarction. Mother Additional Family Medical History / Comment(s): Mother at age 92 from old age. Brother(s) Additional Family Medical History / Comment(s): Patient has 3 brothers alive with no major medical problems. One brother is dying from stomach cancer. Sister(s) Additional Family Medical History / Comment(s): Patient has one sister and she is alive. History of hypertension and hyperlipidemia. General Exam General appearance: alert, in no apparent distress Head exam: Present: atraumatic, normocephalic, normal inspection Eye exam: Present: normal appearance, PERRL, EOMI. Absent: scleral icterus, conjunctival injection, periorbital swelling ENT exam: Present: normal exam, normal oropharynx, mucous membranes dry, mucous membranes moist, TM's normal bilaterally, normal external ear exam Neck exam: Present: normal inspection, full ROM. Absent: tenderness, meningismus, lymphadenopathy Respiratory exam: Present: normal lung sounds bilaterally. Absent: respiratory distress, wheezes, rales, rhonchi, stridor Cardiovascular Exam: Present: regular rate, normal rhythm, normal heart sounds. Absent: systolic murmur, diastolic murmur, rubs, gallop, clicks GI/Abdominal exam: Present: soft, normal bowel sounds. Absent: distended, tenderness, guarding, rebound, rigid Extremities exam: Present: full ROM, normal capillary refill, other (Small skin tears to the right posterior elbow and left forearm.). Absent: normal inspection (Superficial abrasion noted to the right shoulder without evidence of bony point tenderness. Full range of motion.), tenderness, pedal edema, joint swelling, calf tenderness Back exam: Present: normal inspection Neurological exam: Present: alert, oriented X3, CN II-XII intact Psychiatric exam: Present: normal affect, normal mood Skin exam: Present: warm, dry, intact, normal color. Absent: rash Course Vital Signs 10/19/21 10/20/21 22:19 01:02 Temperature 97.9 F Pulse Rate 89 Respiratory 18 Rate Blood Pressure 137/69 Blood Pressure 139/65 [Sitting] Blood Pressure 124/60 [Standing] Blood Pressure 133/72 [Supine] O2 Sat by Pulse 98 Oximetry - Reevaluation(s) Reevaluation #1: 10/20/21 00:39 Medical record is reviewed Patient remains neurologically intact. Chest x-ray was clear of any acute pathology. CT head neck was clear. Cervical collar was cleared. Patient is informed of results and questions answered Patient in no distress Reevaluation #2: 10/20/21 02:13 Patient remains neurologically intact. - Consultations Consultation #1: [place] discussed with the patient's primary care physician, Dr. Oglesby with some submission of the patient. Procedures - Procedures Initial comment: Vitalized tissue debrided from the skin tear on the left forearm. Sterile forceps and scissors use. Air debridement 2 x 2 centimeters. Chest Pain MDM - [facility] [place] syncopal score is 3 for possible cardiogenic syncope. The case was discussed in detail with ED attending physician. Presentation, findings, treatment plan discussed in detail. Patient will be admitted for syncope, unknown cause, possible cardiogenic. Urinalysis is pending. Patient hemodynamically stable. Neurologically intact. Discussed with patient's primary care physician. Patient admitted, cardiology consultation placed. Disposition Clinical Impression: Syncope, cardiogenic, Abrasion of right shoulder, Skin tear Narrative: Skin tear, right elbow/left forearm Disposition: ADMITTED IP TO THIS HOSP Condition: Stable Referrals: Nat Oglesby MD [Primary Care Provider] - 1-2 days Time of Disposition: 00:41
[2021-10-19 23:34] LABS: Albumin 4.3 g/dL (3.5-5.0); Calcium 7.9 mg/dL (8.4-10.2); INR 1.1 (<1.2); Magnesium 1.7 mg/dL (1.6-2.3); Partial Thromboplastin Time 26.1 sec (22.0-30.0); Potassium 4.7 mmol/L (3.5-5.1); Prothrombin Time 11.7 sec (9.0-12.0); Total Bilirubin 1.2 mg/dL (0.2-1.3); Total Protein 7.1 g/dL (6.3-8.2)
[2021-10-19 23:39] LABS: Basophils # (A) 0.2 k/uL (0-0.2); Basophils % (A) 1 %; Eosinophils # (A) 0.1 k/uL (0-0.7); Eosinophils % (A) 1 %; HCT 46.6 % (39.0-53.0); HGB 14.2 gm/dL (13.0-17.5); Lymphocytes # (A) 1.5 k/uL (1.0-4.8); Lymphocytes % (A) 8 %; MCH 26.4 pg (25.0-35.0); MCHC 30.5 g/dL (31.0-37.0); MCV 86.3 fL (80.0-100.0); Monocytes # (A) 4.2 k/uL (0-1.0); Neutrophils % (A) 65 %; Platelet Count 129 k/uL (150-450); RDW 14.1 % (11.5-15.5); WBC 18.3 k/uL (3.8-10.6)
[2021-10-19 23:41] LABS: Monocytes % (A) 23 %
--- NOTE | 2021-10-19 23:59 | CT ---
EXAMINATION TYPE: CT brain cspine wo con DATE OF EXAM: 10/19/2021 COMPARISON: 06/11/2020 HISTORY: fall CT DLP: 1457.1 mGycm Automated exposure control for dose reduction was used. Images of the brain and cervical spine obtained without contrast. There is cerebral cortical atrophy. There is no mass effect or midline shift. No sign of intracranial hemorrhage. Calvarium is intact. There is previous surgery at the left mastoid sinus. Calvarium is i ntact. The cervical vertebra have normal alignment. There is some mild disc space narrowing and spur formati on from C3 to C7. No compression fracture. There is multilevel cervical hypertrophic facet arthropath y. IMPRESSION: Cerebral atrophy. No acute intracranial abnormality. Cervical spondylotic changes. No fracture. Brain and cervical spine not changed significantly compared to the exam.
--- NOTE | 2021-10-20 00:03 | XR ---
EXAMINATION TYPE: XR chest 1V portable DATE OF EXAM: 10/19/2021 COMPARISON: 12/30/2020 HISTORY: Syncope TECHNIQUE: Single view FINDINGS: Heart is shifted to the left side. There are clips are probably from left pneumonectomy. Ri ght lung is clear. No heart failure seen. There is left axillary pacemaker. There are chest leads. IMPRESSION: Left-sided pneumonectomy. There is clearing of the mild pneumonia in the right lung tran red to old exam. No heart failure.
[2021-10-20] MEDS ORDERED: NALOXONE 0.4 MG/ML 1 ML VIAL IV PRN (02:09)
[2021-10-20] MEDS ORDERED: PROCHLORPERAZINE 5 MG TAB PO PRN (02:09)
[2021-10-20] MEDS ORDERED: IPRATROPIUM-ALBUTEROL 3 ML NEB INHALATION PRN (02:13)
[2021-10-20] MEDS ORDERED: SODIUM CHLORIDE 0.9% 1,000 ML IV SCH ×2 (02:15→13:15)
[2021-10-20 02:16] LABS: Appearance,Urine Clear (Clear); Bilirubin,Urine Negative (Negative); Blood,Urine Negative (Negative); Color,Urine Yellow; Glucose,Urine (UA) Negative (Negative); Ketones,Urine Negative (Negative); Leukocyte Esterase,Urine Negative (Negative); Nitrite,Urine Negative (Negative); Protein,Urine Negative (Negative); Specific Gravity,Urine 1.014 (1.001-1.035); Urobilinogen,Urine <2.0 mg/dL (<2.0)
[2021-10-20] MEDS: ACETAMINOPHEN TAB 325 MG TAB PO PRN ×2 (06:11→13:56)
--- NOTE | 2021-10-20 10:27 | P.CRDCN ---
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 He follows in the office with Dr. Pinon. We have been asked to see in consultation for syncope. Patient is seen and examined in the emergency department, he presents to the emergency department after syncopal episode at home. He states that he was getting out of bed overnight to walk to the bathroom and he states he "blacked out" and fell to the ground. He remembers waking up on the floor. This happened overnight. He does not remember having any symptoms of chest pain, shortness of breath, lightheadedness, pal pitations, dizziness, nausea, abdominal pain, weakness, incontinence, headache. He presented to the ER for further evaluation. He does have minor abrasions to his bilateral arms. He denies any recent changes to his medications, denies any orthopnea or PND. No known history of coronary artery disease, stroke, or diabetes. DIAGNOSTICS EKG reveals atrial sensed and V paced rhythm, heart rate 89 Most recent echocardiogram 12/2020 revealed EF 5560 percent, LA is mildly dilated, mild to moderate mitral regurgitation, mild tricuspid regurgitation, mild to moderate pulmonary hypertension with RVSP of 39 mmHg Most recent stress test Lexiscan in the office 2013 was negative for reversible ischemia Head CT revealed no acute intracranial abnormality, cervical spondylitic changes, no fracture Chest xray left sided pneumonectomy, there is clearing of mild pneumonia in the right lung compared to old exam Laboratory reviewed, WBC 18.3, hemoglobin 14.2, platelets 129, sodium 139, potassium 4.7, BUN 28, serum creatinine 1.24, troponin negative, proBNP 454, UA negative Current home medications include amitriptyline 50 mg daily, Eliquis 5 mg twice a day, atorvastatin 80 mg nightly, Lasix 20 mg when necessary, losartan 50 mg daily, Synthroid, magnesium oxide, metoprolol succinate 100 mg daily REVIEW OF SYSTEMS At the time of my exam: CONSTITUTIONAL: Denies fever or chills. CARDIOVASCULAR: Denies chest pain, shortness of breath, orthopnea, PND or palpitations. RESPIRATORY: Denies cough. GASTROINTESTINAL: Denies abdominal pain, diarrhea, constipation, nausea or vomiting. MUSCULOSKELETAL: Denies myalgias. NEUROLOGIC: Denies numbness, tingling, headache or weakness. ENDOCRINE: Denies fatigue, weight change, polydipsia or polyurina. GENITOURINARY: Denies burning, hematuria or urgency with micturation. HEMATOLOGIC: Denies history of anemia or bleeding. PHYSICAL EXAMINATION Blood pressure 140/63, heart rate 93, afebrile, saturation 97% on room air CONSTITUTIONAL: No apparent distress. HEENT: Head is normocephalic. Pupils are equal, round. Sclerae anicteric. Mucous membranes of the mouth are moist. No JVD. No carotid bruit. CHEST EXAMINATION: Lungs are clear to auscultation. No chest wall tenderness is noted on palpation or with deep breathing. HEART EXAMINATION: Regular rate and rhythm. S1, S2 heard. Systolic ejection murmur at apex, no gallops or rub. ABDOMEN: Soft, nontender. Positive bowel sounds. EXTREMITIES: 2+ peripheral pulses, no lower extremity edema and no calf tenderness. SKIN: Warm, dry NEUROLOGIC EXAMINATION: Patient is awake, alert and oriented x3. ASSESSMENT Syncope, rule out cardiac etiology History of tachy-arabella syndrome and syncope status post pacemaker implantation in 07/2020 Paroxysmal atrial fibrillation on Eliquis History of hypertension Dyslipidemia Former tobacco use Former alcohol use Non-small cell lung cancer in 2008 status post left pneumonectomy History of hypothyroidism PLAN Trend troponins Obtain 2D echocardiogram and doppler study to assess cardiac structure and function. Interrogated patient's pacemaker Monitor on cardiac telemetry Orthostatics Continue home cardiac medications statin, losartan, metoprolol succinate Continue anticoagulation with Eliquis Further recommendations based on clinical course Thank you kindly for this consultation. Nurse practitioner note has been reviewed by physician. Signing provider agrees with the documented findings, assessment, and plan of care. Past Medical History Past Medical History: Coronary Artery Disease (CAD), Hypertension, Thyroid Disorder Additional Past Medical History / Comment(s): vertigo History of Any Multi-Drug Resistant Organisms: None Reported Past Surgical History: Hernia Repair, Pacemaker Additional Past Surgical History / Comment(s): Left lung removed Past Anesthesia/Blood Transfusion Reactions: No Reported Reaction Type of Cardiac Device: Unknown Device Placement Date:: June, Past Psychological History: No Psychological Hx Reported Smoking Status: Never smoker Past Alcohol Use History: None Reported Past Drug Use History: None Reported - Past Family History Father Additional Family Medical History / Comment(s): Father at age 71 from a myocardial infarction. Mother Additional Family Medical History / Comment(s): Mother at age 92 from old age. Brother(s) Additional Family Medical History / Comment(s): Patient has 3 brothers alive with no major medical problems. One brother is dying from stomach cancer. Sister(s) Additional Family Medical History / Comment(s): Patient has one sister and she is alive. History of hypertension and hyperlipidemia. Medications and Allergies Home Medications Medication Instructions Recorded Confirmed Type Atorvastatin [Lipitor] 80 mg PO HS 06/11/20 10/20/21 History Potassium Chloride ER [K-Dur 10] 10 meq PO DAILY 06/11/20 10/20/21 History Magnesium Oxide 400 mg PO DAILY PRN 12/23/20 10/20/21 History Metoprolol Succinate (ER) [Toprol 100 mg PO DAILY 12/23/20 10/20/21 History XL] Apixaban [Eliquis] 5 mg PO BID #60 tab 12/30/20 10/20/21 Rx Amitriptyline HCl [Elavil] 50 mg PO HS 10/20/21 10/20/21 History Ferrous Sulfate [Feosol] 325 mg PO BID 10/20/21 10/20/21 History Furosemide [Lasix] 20 mg PO DAILY PRN 10/20/21 10/20/21 History Levothyroxine Sodium [Synthroid] 75 mcg PO DAILY 10/20/21 10/20/21 History Losartan [Cozaar] 50 mg PO DAILY 10/20/21 10/20/21 History Mupirocin 2% Oint [Bactroban 2% 1 applic TOPICAL BID 10/20/21 10/20/21 History Oint] Allergies Allergy/AdvReac Type Severity Reaction Status Date / Time No Known Allergies Allergy Verified 10/20/21 07:58 Physical Exam Vitals: Vital Signs Temp Pulse Resp BP BP BP BP 10/20/21 06:39 72 16 140/63 10/20/21 05:00 75 18 138/67 10/20/21 03:03 79 18 136/78 10/20/21 02:03 84 18 139/74 10/20/21 01:02 139/65 124/60 133/72 10/20/21 00:03 78 16 140/73 10/19/21 22:19 97.9 F 89 18 137/69 Pulse Ox 10/20/21 06:39 97 10/20/21 05:00 96 10/20/21 03:03 98 10/20/21 02:03 98 10/20/21 01:02 10/20/21 00:03 97 10/19/21 22:19 98 Intake and Output 10/19/21 10/20/21 10/20/21 22:59 06:59 14:59 Other: Weight 80.739 kg Results 10/19/21 23:12 10/19/21 23:12 Cardiac Enzymes 10/19/21 10/19/21 Range/Units 23:12 23:12 AST 34 (17-59) U/L Troponin I <0.012 (0.000-0.034) ng/mL Coagulation 10/19/21 Range/Units 23:12 PT 11.7 (9.0-12.0) sec APTT 26.1 (22.0-30.0) sec CBC 10/19/21 Range/Units 23:12 WBC 18.3 H (3.8-10.6) k/uL RBC 5.40 (4.30-5.90) m/uL Hgb 14.2 (13.0-17.5) gm/dL Hct 46.6 (39.0-53.0) % Plt Count 129 L (150-450) k/uL Comprehensive Metabolic Panel 10/19/21 Range/Units 23:12 Sodium 139 (137-145) mmol/L Potassium 4.7 (3.5-5.1) mmol/L Chloride 103 (98-107) mmol/L Carbon Dioxide 27 (22-30) mmol/L BUN 28 H (9-20) mg/dL Creatinine 1.24 (0.66-1.25) mg/dL Glucose 118 H (74-99) mg/dL Calcium 7.9 L (8.4-10.2) mg/dL AST 34 (17-59) U/L ALT 29 (4-49) U/L Alkaline Phosphatase 112 (38-126) U/L Total Protein 7.1 (6.3-8.2) g/dL Albumin 4.3 (3.5-5.0) g/dL Current Medications Generic Name Dose Route Start Last Admin Trade Name Freq PRN Reason Stop Dose Admin Acetaminophen 650 mg 10/20/21 02:09 10/20/21 06:11 Acetaminophen Tab 325 Mg Tab PO 650 mg Q6HR PRN Administration Mild Pain or Fever > 100.5 Albuterol/Ipratropium 3 ml 10/20/21 02:13 Ipratropium-Albuterol 3 Ml Neb INHALATION RT-QID PRN Shortness Of Breath Or Wheezing Sodium Chloride 1,000 mls @ 75 mls/hr 10/20/21 02:15 10/20/21 06:12 Saline 0.9% IV 75 mls/hr .[id number] GAGANDEEP Administration Naloxone HCl 0.2 mg 10/20/21 02:09 Naloxone 0.4 Mg/Ml 1 Ml Vial IV Q2M PRN Opioid Reversal Prochlorperazine Maleate 5 mg 10/20/21 02:09 Prochlorperazine 5 Mg Tab PO Q8HR PRN Nausea And Vomiting Intake and Output 10/19/21 10/20/21 10/20/21 22:59 06:59 14:59 Other: Weight 80.739 kg 10/19/21 23:12 10/19/21 23:12
--- NOTE | 2021-10-20 12:03 | CA ---
Transthoracic Echo Report Name: Cuauhtemoc Boone Age: 76 Gender: M : 1945 Exam Date: 10/20/2021 11:26 Exam Location: [facility] Ht (in): 71 Wt (lb): 178 Ordering Physician: Rhiannon Oakley Attending/Referring Phys: Buffing Wheel Presser Ene Gibbs RDCS Procedure CPT: Indications: Syncope Cardiac Hx: Technical Quality: Very technically difficult study Contrast 1: Lumason Total Dose (mL): 2 Contrast 2: Total Dose (mL): MEASUREMENTS (Male / Female) Normal Values DOPPLER AV Peak Velocity 114.6 cm/s AV Peak Gradient 5.3 mmHg MV Area PHT 3.5 cm??? MR Peak Velocity 96.5 cm/s MR Peak Gradient 3.7 mmHg Mitral E Point Velocity 69.2 cm/s Mitral A Point Velocity 89.0 cm/s Mitral E to A Ratio 0.8 MV Deceleration Time 215.4 ms FINDINGS Left Ventricle Unable to visualize heart with Lumason. Unable to determine EF. Right Ventricle Right ventricle not well visualized. Right Atrium Right atrium not well visualized. Left Atrium Left atrium not well visualized. Mitral Valve Mitral valve not well visualized. Aortic Valve Aortic valve not well visualized. Tricuspid Valve Tricuspid valve not well visualized. Pulmonic Valve Pulmonic valve not well visualized. Pericardium No pericardial effusion. Aorta Aortic root and proximal ascending aorta not well visualized. CONCLUSIONS Technically extremely difficult study for interpretation Is very hard to assess the ejection fraction Previewed by: Dr. Nate Barroso MD (Electronically Signed) Final Date: 20 Oct 2021 12:02
[2021-10-20] MEDS ORDERED: MAGNESIUM OXIDE 400 MG TAB PO PRN (13:00)
[2021-10-20] MEDS: METOPROLOL SUCCINATE (ER) 100 MG TAB.ER.24H PO SCH (13:56)
[2021-10-20] MEDS: APIXABAN 5 MG TAB PO SCH ×2 (13:56→21:57)
[2021-10-20] MEDS: LOSARTAN 50 MG TAB PO SCH (13:56)
--- NOTE | 2021-10-20 14:06 | P.HPIM ---
History of Present Illness H&P Date: 10/20/21 HISTORY OF PRESENT ILLNESS: This is a 76-year-old male patient of mine with past medical history of non-small cell lung cancer diagnosed in 2009 status post lobectomy, remote history of tobacco use, remote history of alcohol abuse, alcoholic peripheral neuropathy, hypertension, coronary artery disease, paroxysmal atrial fibrillation, hypothyroidism. Patient states that he was getting out of bed to go to the bathroom and he blacked out following the floor. He complains of right hip pain and noted to have multiple skin tears specially on the elbows. Patient denies having any chest pain, shortness of breath, lightheadedness or dizziness. He is seen today in the emergency center waiting for a bed on the [facility] floor, sister is at bedside. Patient was found to be afebrile, heart rate 89, blood pressure 137/69, pulse ox 90% on room air. Orthostatic vital signs negative. EKG is atrial sensed V paced rhythm. WBC 18.3, hemoglobin 14.2, platelet count 129. Electrolytes normal. BUN 20 creatinine 1.24. Blood sugar 118. Calcium 7.9. Magnesium 1.7. Liver function tests normal. Troponin negative 2 draws. ProBNP 545. Urinalysis negative for infection. Chest x-ray reveals left sided pneumonectomy. Clearing of mild pneumonia in the right lung compared to old exam. No heart failure. CAT scan of the brain and cervical spine revealed cerebral atrophy. No acute intracranial abnormality. Cervical spondylotic changes. No fracture. Brain and cervical spine did not change significantly compared to previous exam. Echocardiogram was a difficult study and hard to assess ejection fraction. Valves were not well visualized. Patient has been seen by cardiology with recommendations to trend troponins, obtain echocardiogram, interrogate pacemaker continue cardiac monitoring and orthostatics, continue home medications including eliquis. REVIEW OF SYSTEMS: Constitutional: No documented fever, no chills, no night sweats. No weight change. No weakness, fatigue or lethargy. No daytime sleepiness. EENT: No headache. No blurred vision or double vision, no loss of vision. No loss of Hearing, no ringing in the ears, no dizziness. No nasal drainage or congestion. No epistaxis. No sore throat. Lungs: No shortness of breath, no cough, no sputum production. no wheezing. Cardiovascular: No chest pain, no lower extremity edema. No palpitations. No paroxysmal nocturnal dyspnea. No orthopnea. No lightheadedness or dizziness. Reports syncopal episodes. Abdominal: Reports abdominal pain. No nausea, vomiting. No diarrhea. No constipation. No bloody or tarry stools reports loss of appetite. Genitourinary: No dysuria, increased frequency, urgency. No urinary retention. Musculoskeletal: No myalgias. No muscle weakness, no gait dysfunction, no frequent falls. No back pain. No neck pain. Integumentary: No wounds, no lesions. No rash or pruritus. No unusual bruising. No change in hair or nails. Neurologic: No aphasia. No facial droop. No change in mentation. No head injury. No headache. No paralysis. No paresthesia. Psychiatric: No depression. No anxiety. No mood swings. Endocrine: No abnormal blood sugars. No weight change. PAST MEDICAL HISTORY: Hypertension Hyperlipidemia Supraventricular tachycardia Malignant neoplasm of the prostate Neoplasm of the left bronchus Paroxysmal atrial fibrillation on Coumadin Alcoholic peripheral neuropathy Sick sinus syndrome Hypothyroidism PAST SURGICAL HISTORY: Left and right groin hernia repair Lung left resection in 2008 Permanent pacemaker 07/28 SOCIAL HISTORY: Patient has history of smoking and quit 5-10 years ago. No current alcohol use, illicit drug use, marijuana use. Patient does have history of alcohol abuse in the past. FAMILY HISTORY: Father at age 71 from a myocardial infarction. Mother at age 92 from old age. Patient has 3 brothers and 2 brothers are living with no major medical problems, one brother from stomach cancer. Patient has one sister living with history of hypertension hyperlipidemia. PHYSICAL EXAMINATION: General: This is a 76-year-old male resting on the ER stretcher and appears to be comfortable and in no acute distress. Patient's sister is at be dside. HEENT: Head is atraumatic, normocephalic, pupils were equal round reactive to light and recommendation, extraocular muscle movement were intact, sclera nonicteric, conjunctivae were pale, mucous membranes of the mouth are somewhat dry. Neck: Supple, no JVP, normal carotid upstroke bilaterally, no lymphadenopathy. Chest: Decreased breath sounds at the bases, no wheezes, no chest wall tendern ess, no intercostal retractions. Heart: First heart sound is normal, second heart sounds normal, systolic ejection murmur at the apex. Abdomen: Soft, nontender, nondistended, positive bowel sounds. Extremities: There is no edema no calf tenderness DP +2 bilaterally. Neurologic examination: Patient is awake alert and oriented 3, cranial nerves II-12 appear grossly intact, muscle power were 5 out of 5 in upper extremities and 5 out of 5 in bilateral lower extremities, deep tendon reflexes normal bilaterally. ASSESSMENT AND PLAN: 1. Acute syncopal episode. Cardiology consult appreciated. Echocardiogram as above. Patient had pacemaker interrogated, continue cardiac monitoring, orthostatics. Carotid ultrasound ordered. 2. Right hip pain and multiple skin tears following fall. CAT scan of the right hip ordered, local wound care to skin tears. 3. Leukocytosis of unclear etiology, noted to be chronic. 4. History of non-small cell lung cancer in 2008 status post left pneumonectomy. 5. Hypertension. Continue losartan 50 mg daily, Toprol-XL 100 mg daily 6. Thrombocytopenia. Recheck CBC tomorrow. 7. Paroxysmal atrial fibrillation. Continue eliquis and Toprol XL. 8. History of sick sinus syndrome status post pacemaker implantation, stable. 9. Alcoholic peripheral neuropathy. Continue amitriptyline 50 mg at bedtime 10. Hypothyroidism. Continue levothyroxine 50 g daily. 11. GI prophylaxis. Protonix 40 mg daily. 12. DVT prophylaxis. Eliquis. CODE STATUS: Full code Patient admitted to the hospital for a minimum of 2 nights day. DISCHARGE PLAN Mosst likely return home. Consult with PT and OT. Impression and plan of care have been directed as dictated by the signing physician. Jada Burr nurse practitioner acting as scribe for signing physician. Past Medical History Past Medical History: Coronary Artery Disease (CAD), Hypertension, Thyroid Disorder Additional Past Medical History / Comment(s): vertigo Last Myocardial Infarction Date:: 2013 History of Any Multi-Drug Resistant Organisms: None Reported Past Surgical History: Hernia Repair, Pacemaker Additional Past Surgical History / Comment(s): Left lung removed Past Anesthesia/Blood Transfusion Reactions: No Reported Reaction Type of Cardiac Device: Unknown Device Placement Date:: June, Past Psychological History: No Psychological Hx Reported Smoking Status: Never smoker Past Alcohol Use History: None Reported Past Drug Use History: None Reported - Past Family History Father Family Medical History: Memory Impairment Additional Family Medical History / Comment(s): Father at age 71 from a myocardial infarction. Mother Family Medical History: No Reported History Additional Family Medical History / Comment(s): Mother at age 92 from old age. Brother(s) Additional Family Medical History / Comment(s): Patient has 3 brothers alive with no major medical problems. One brother is dying from stomach cancer. Sister(s) Additional Family Medical History / Comment(s): Patient has one sister and she is alive. History of hypertension and hyperlipidemia. Medications and Allergies Home Medications Medication Instructions Recorded Confirmed Type Atorvastatin [Lipitor] 80 mg PO HS 06/11/20 10/20/21 History Potassium Chloride ER [K-Dur 10] 10 meq PO DAILY 06/11/20 10/20/21 History Magnesium Oxide 400 mg PO DAILY PRN 12/23/20 10/20/21 History Metoprolol Succinate (ER) [Toprol 100 mg PO DAILY 12/23/20 10/20/21 History XL] Apixaban [Eliquis] 5 mg PO BID #60 tab 12/30/20 10/20/21 Rx Amitriptyline HCl [Elavil] 50 mg PO HS 10/20/21 10/20/21 History Ferrous Sulfate [Feosol] 325 mg PO BID 10/20/21 10/20/21 History Furosemide [Lasix] 20 mg PO DAILY PRN 10/20/21 10/20/21 History Levothyroxine Sodium [Synthroid] 75 mcg PO DAILY 10/20/21 10/20/21 History Losartan [Cozaar] 50 mg PO DAILY 10/20/21 10/20/21 History Mupirocin 2% Oint [Bactroban 2% 1 applic TOPICAL BID 10/20/21 10/20/21 History Oint] Allergies Allergy/AdvReac Type Severity Reaction Status Date / Time No Known Allergies Allergy Verified 10/20/21 07:58 Physical Exam Vitals: Vital Signs Temp Pulse Resp BP BP BP BP 10/20/21 07:47 93 16 140/63 10/20/21 06:39 72 16 140/63 10/20/21 05:00 75 18 138/67 10/20/21 03:03 79 18 136/78 10/20/21 02:03 84 18 139/74 10/20/21 01:02 139/65 124/60 133/72 10/20/21 00:03 78 16 140/73 10/19/21 22:19 97.9 F 89 18 137/69 Pulse Ox 10/20/21 07:47 97 10/20/21 06:39 97 10/20/21 05:00 96 10/20/21 03:03 98 10/20/21 02:03 98 10/20/21 01:02 10/20/21 00:03 97 10/19/21 22:19 98 Intake and Output 10/19/21 10/20/21 10/20/21 22:59 06:59 14:59 Other: Weight 80.739 kg 80.739 kg Results CBC & Chem 7: 10/19/21 23:12 10/19/21 23:12 Labs: Abnormal Lab Results - Last 24 Hours (Table) 10/19/21 10/19/21 Range/Units 23:12 23:12 WBC 18.3 H (3.8-10.6) k/uL MCHC 30.5 L (31.0-37.0) g/dL Plt Count 129 L (150-450) k/uL Neutrophils # 12.0 H (1.3-7.7) k/uL Monocytes # 4.2 H (0-1.0) k/uL BUN 28 H (9-20) mg/dL Glucose 118 H (74-99) mg/dL Calcium 7.9 L (8.4-10.2) mg/dL Thrombosis Risk Factor Assmnt - Choose All That Apply Any of the Below Risk Factors Present?: Yes Each Factor Represents 1 point: Abnormal pulmonary function (COPD), Swollen legs (current) Other Risk Factors: Yes Each Risk Factor Represents 2 Points: Malignancy Each Risk Factor Represents 3 Points: Age 75 years or older Other congenital or acquired thrombophilia - If yes, enter type in comment: No Thrombosis Risk Factor Assessment Total Risk Factor Score: 7 Thrombosis Risk Factor Assessment Level: High Risk
--- NOTE | 2021-10-20 15:58 | CT ---
EXAMINATION TYPE: CT hip RT wo con DATE OF EXAM: 10/20/2021 COMPARISON: None HISTORY: 76 year-old male fall, right hip pain TECHNIQUE: Contiguous axial scanning of the right hip without IV contrast. Coronal and sagittal recon structions performed. CT DLP: 559 mGycm Automated exposure control for dose reduction was used. FINDINGS: Extensive subcutaneous soft tissue hemorrhage along the lateral aspect of the right hip. There is foc al hematoma measuring at least 8.0 x 2.5 x 7.3 cm but extending up outside the field of view. It has mild mass effect onto the underlying gluteal musculature. Also in the subcutaneous adipose layer is extensive surrounding bruising and strandy hemorrhage exten ding down the upper thigh. Mild degenerative change at the right hip. Some enthesopathy at the hamstrings origin. No acute fract ure is seen Possible elongated fat density lesion along the lateral aspect of the hip and proximal thigh musculat ure, overlying the superficial muscular fascia measuring 12.2 cm long and 4.0 x 3.2 cm in cross-secti on. No significant internal soft tissue is seen. Generalized osteopenia. IMPRESSION: 1. LARGE HEMATOMA MEASURING AT LEAST 8.0 CM WITHIN THE SUBCUTANEOUS ADIPOSE LAYER LATERAL TO THE RIGH T HIP. MORE EXTENSIVE SURROUNDING SUBCUTANEOUS HEMORRHAGE AND BRUISING EXTENDING DOWN TO THE UPPER TH IGH LEVEL. 2. UNDERLYING MILD RIGHT HIP OA. NO ACUTE OSSEOUS ABNORMALITY SEEN. 3. POSSIBLE ELONGATED FAT DENSITY LESION, LIKELY LIPOMA, MEASURING 12.2 X 4.0 CM ALONG THE SUPERFICIA L FASCIA ANTEROLATERAL PROXIMAL RIGHT THIGH. GIVEN SIZE AND PATIENT DEMOGRAPHICS, RECOMMEND 6 MONTH F OLLOW-UP CT TO ENSURE STABILITY. SUBSEQUENTLY, HELICAL FOLLOW-UP WILL BE RECOMMENDED.
[2021-10-20] MEDS: TORSEMIDE 20 MG TAB PO SCH (17:50)
--- NOTE | 2021-10-20 17:54 | US ---
EXAMINATION TYPE: US carotid duplex BILAT DATE OF EXAM: 10/20/2021 COMPARISON: NONE CLINICAL HISTORY: syncope. EXAM MEASUREMENTS: RIGHT: Peak Systolic Velocity (PSV) cm/sec ----- Right CCA: 154 ----- Right ICA: 194 ----- Right ECA: 174 ICA/CCA ratio: 1.26 RIGHT: End Diastole cm/sec ----- Right CCA: 21.3 ----- Right ICA: 18.2 ----- Right ECA: 6.3 LEFT: Peak Systolic Velocity (PSV) cm/sec ----- Left CCA: 111 ----- Left ICA: 116 ----- Left ECA: 167 ICA/CCA ratio: 1.05 LEFT: End Diastole cm/sec ----- Left CCA: 15.4 ----- Left ICA: 21.2 ----- Left ECA: 10.8 VERTEBRALS (direction of flow): Right Vertebral: Antegrade Left Vertebral: Antegrade Rhythm: Normal Mild plaque bilateral bifurcations. Increased velocities right ICA and ECA IMPRESSION: 1. 50-69% stenosis of the right carotid bifurcation by peak systolic velocity. 2. Less than 50% stenosis of the left carotid bifurcation. Criteria for Assigning % of Stenosis / Diameter reduction (Estimation based on the indirect measurements of the internal carotid artery velocities (ICA PSV). 1. Normal (no stenosis)=ICA PSV < 125 cm/s: ratio < 2.0: ICA EDV<40 cm/s. 2. Less than 50% stenosis=ICA PSV < 125 cm/s: ratio < 2.0: ICA EDV<40 cm/s. 3. 50 to 69% stenosis=ICA PSV of 125 to 230 cm/s: ration 2.0 ? 4.0: ICA EDV 40-100 cm/s. 4. Greater than 70% stenosis to near occlusion= ICA PSV > 230 cm/s: ratio > 4.0: ICA EDV > 100 cm/s. 5. Near occlusion= ICA PSV velocities may be low or undetectable: variable ratio and ICA EDV. 6. Total occlusion=unable to detect flow.
[2021-10-20] MEDS ORDERED: AMITRIPTYLINE HCL 50 MG TAB PO SCH (21:00)
[2021-10-20] MEDS: ATORVASTATIN 80 MG TAB PO SCH (21:57)
[2021-10-20] MEDS: FERROUS SULFATE 325 MG TAB PO SCH (21:57)
[2021-10-21] MEDS: LEVOTHYROXINE 75 MCG TAB PO SCH (05:39)
[2021-10-21 09:26] LABS: Basophils # (A) 0.04 X 10*3/uL (0.00-0.10); Basophils % (A) 0.2 %; Eosinophils # (A) 0.11 X 10*3/uL (0.04-0.35); Eosinophils % (A) 0.5 %; HCT 30.9 % (39.6-50.0); HGB 9.7 g/dL (13.0-17.0); Immature Grans, Automated 1.6 %; Lymphocytes # (A) 1.69 X 10*3/uL (0.90-5.00); Lymphocytes % (A) 8.3 %; MCH 26.9 pg (27.0-32.0); MCHC 31.4 g/dL (32.0-37.0); MCV 85.8 fL (80.0-97.0); Mean Platelet Volume 12.5 fL (9.5-12.2); Monocytes # (A) 4.87 X 10*3/uL (0.20-1.00); Monocytes % (A) 23.8 %; NRBC Per 100 WBC 0 /100 WBCS (0.0-0.0); Neutrophils # (A) 13.44 X 10*3/uL (1.80-7.70); Neutrophils % (A) 65.6 %; Platelet Count 125 X 10*3/uL (140-440); RDW 14.7 % (11.5-14.5); WBC 20.47 X 10*3/uL (4.50-10.00)
[2021-10-21 09:36] LABS: African American GFR (CKD) 55.8 (60.0-200.0); Albumin 3.3 g/dL (3.8-4.9); Albumin/Globulin Ratio 1.74 (1.60-3.17); Anion Gap 9.8 mmol/L (10.00-18.00); BUN/Creat Ratio 22.21 Ratio (12.00-20.00); Blood Urea Nitrogen 31.1 mg/dL (9.0-27.0); Carbon Dioxide 24.2 mmol/L (20.0-27.5); Globulin 1.9 g/dL (1.6-3.3); Magnesium 2.1 mg/dL (1.5-2.4); Non-African American GFR(CKD) 48.1 (60.0-200.0); Potassium 4.5 mmol/L (3.5-5.5); Total Bilirubin 1.1 mg/dL (0.30-1.20); Total Protein 5.2 g/dL (6.2-8.2)
--- NOTE | 2021-10-21 09:58 | P.PN ---
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 He follows in the office with Dr. Pinon. We have been asked to see in consultation for syncope. Patient is seen and examined in the emergency department, he presents to the emergency department after sync opal episode at home. He states that he was getting out of bed overnight to walk to the bathroom and he states he "blacked out" and fell to the ground. He remembers waking up on the floor. This happened overnight. He does not remember having any symptoms of chest pain, shortness of breath, lightheadedness, palpitations, dizziness, nausea, abdominal pain, weakness, incontinence, headache. He presented to the ER for further evaluation. He does have minor abrasions to his bilateral arms. He denies any recent changes to his medications, denies any orthopnea or PND. No known history of coronary artery disease, stroke, or diabetes. DIAGNOSTICS EKG reveals atrial sensed and V paced rhythm, heart rate 89 Most recent echocardiogram 12/2020 revealed EF 5560 percent, LA is mildly dilated, mild to moderate mitral regurgitation, mild tricuspid regurgitation, mild to moderate pulmonary hypertension with RVSP of 39 mmHg Most recent stress test Lexiscan in the office 2013 was negative for reversible ischemia Head CT revealed no acute intracranial abnormality, cervical spondylitic changes, no fracture 10/21/2021 Patient seen and examined at bedside, no distress. He denies any lightheadedness, dizziness, palpitations. Device has been interrogated with no acute findings, device function normally. Repeat echocardiogram was difficult study, unable to assess ejection fraction. Orthostatics negative. Telemetry reviewed overnight patient with heart rates in the 70s80s, atrial sensed and ventricular paced, and AV paced noted. Carotid Dopplers revealed 5069% stenosis of the right carotid bifurcation by peak systolic velocity, less than 50% stenosis of the left carotid bifurcation. Troponin negative x 2. PHYSICAL EXAMINATION Vitals reviewed CONSTITUTIONAL: No apparent distress. HEENT: Neck Supple. No JVD. No carotid bruit. CHEST EXAMINATION: Lungs are clear to auscultation. No chest wall tenderness is noted on palpation or with deep breathing. HEART EXAMINATION: Regular rate and rhythm. S1, S2 heard. Systolic ejection murmur at apex, no gallops or rub. ABDOMEN: Soft, nontender. Positive bowel sounds. EXTREMITIES: 2+ peripheral pulses, no lower extremity edema and no calf tenderness. SKIN: Warm, dry NEUROLOGIC EXAMINATION: Patient is awake, alert and oriented x3. ASSESSMENT Syncope, unclear etiology at this time History of tachy-arabella syndrome and syncope status post pacemaker implantation in 07/2020 Paroxysmal atrial fibrillation on Eliquis History of hypertension Dyslipidemia Former tobacco use Former alcohol use Non-small cell lung cancer in 2008 status post left pneumonectomy History of hypothyroidism PLAN Troponins negative, Patients pacemaker interrogated, device working normally no acute findings. No acute findings on telemetry as well over the past 24 hours. HR have remained in the 70s-90s. Continue home cardiac medications statin, losartan, metoprolol succinate Continue anticoagulation with Eliquis From a cardiology perspective, no further inpatient testing at this time. Recommend close follow up with Dr. Pinon outpatient. Please call with any further questions or concerns. Nurse practitioner note has been reviewed by physician. Signing provider agrees with the documented findings, assessment, and plan of care. Objective - Vital Signs Vital signs: Vital Signs Temp 97.4 F L 10/21/21 07:00 Pulse 86 10/21/21 07:00 Resp 18 10/21/21 07:00 BP 98/67 10/21/21 07:00 Pulse Ox 99 10/21/21 07:00 Intake & Output 10/20/21 10/21/21 10/21/21 18:59 06:59 18:59 Intake Total 118 118 Balance 118 118 Weight 83.1 kg Intake: Oral 118 118 Other: # Voids 1 - Labs CBC & Chem 7: 10/21/21 06:12 10/21/21 06:12 Labs: Abnormal Lab Results - Last 24 Hours (Table) 10/21/21 10/21/21 Range/Units 06:12 06:12 WBC 20.47 H (4.50-10.00) X 10*3/uL RBC 3.60 L (4.40-5.60) X 10*6/uL Hgb 9.7 L (13.0-17.0) g/dL Hct 30.9 L (39.6-50.0) % MCH 26.9 L (27.0-32.0) pg MCHC 31.4 L (32.0-37.0) g/dL RDW 14.7 H (11.5-14.5) % Plt Count 125 L (140-440) X 10*3/uL MPV 12.5 H (9.5-12.2) fL Immature Gran # 0.32 H (0.00-0.04) X 10*3/uL Neutrophils # 13.44 H (1.80-7.70) X 10*3/uL Monocytes # 4.87 H (0.20-1.00) X 10*3/uL Anion Gap 9.80 L (10.00-18.00) mmol/L BUN 31.1 H (9.0-27.0) mg/dL Est GFR (CKD-EPI)AfAm 55.8 L (60.0-200.0) Est GFR (CKD-EPI)NonAf 48.1 L (60.0-200.0) BUN/Creatinine Ratio 22.21 H (12.00-20.00) Ratio Calcium 7.0 L (8.7-10.3) mg/dL Total Protein 5.2 L (6.2-8.2) g/dL Albumin 3.3 L (3.8-4.9) g/dL
[2021-10-21] MEDS: ACETAMINOPHEN TAB 325 MG TAB PO PRN ×2 (10:36→21:36)
[2021-10-21] MEDS: APIXABAN 5 MG TAB PO SCH (10:47)
[2021-10-21] MEDS: POTASSIUM CHLORIDE ER 10 MEQ TAB.ER.PRT PO SCH (10:47)
[2021-10-21] MEDS: FERROUS SULFATE 325 MG TAB PO SCH ×2 (10:47→21:35)
[2021-10-21] MEDS: TORSEMIDE 20 MG TAB PO SCH (10:48)
--- NOTE | 2021-10-21 14:58 | P.CNOR ---
History of Present Illness - HPI Consult date: 10/21/21 History of present illness: This is a 76-year-old male who is admitted after a syncopal episode. Orthopedics is consulted due to right hip hematoma. Patient states that he was getting out of bed when he passed out. Patient is seen and evaluated at bedside today. Patient states that he has some mild right hip pain and quite a bit of b ruising. Patient states that he has been using an ice pack over the right hip. Patient states that he has chronic swelling of both legs. Patient states that he is on Eliquis. Patient's past medical history significant for non-small cell lung cancer status post lobectomy, hypertension, coronary artery disease, atrial fibrillation, hypothyroidism, history of alcohol abuse, alcoholic peripheral n europathy and history of tobacco use. Patient denies any fever/chills, numbness, weakness, tingling, abdominal pain, shortness of breath or chest pain. Review of Systems See HPI. Past Medical History Past Medical History: Coronary Artery Disease (CAD), Hypertension, Thyroid Disorder Additional Past Medical History / Comment(s): vertigo Last Myocardial Infarction Date:: 2013 History of Any Multi-Drug Resistant Organisms: None Reported Past Surgical History: Hernia Repair, Pacemaker Additional Past Surgical History / Comment(s): Left lung removed Past Anesthesia/Blood Transfusion Reactions: No Reported Reaction Type of Cardiac Device: Unknown Device Placement Date:: June, Past Psychological History: No Psychological Hx Reported Smoking Status: Never smoker Past Alcohol Use History: None Reported Past Drug Use History: None Reported - Past Family History Father Family Medical History: Memory Impairment Additional Family Medical History / Comment(s): Father at age 71 from a myocardial infarction. Mother Family Medical History: No Reported History Additional Family Medical History / Comment(s): Mother at age 92 from old age. Brother(s) Additional Family Medical History / Comment(s): Patient has 3 brothers alive with no major medical problems. One brother is dying from stomach cancer. Sister(s) Additional Family Medical History / Comment(s): Patient has one sister and she is alive. History of hypertension and hyperlipidemia. Medications and Allergies Home Medications Medication Instructions Recorded Confirmed Type Atorvastatin [Lipitor] 80 mg PO HS 06/11/20 10/20/21 History Potassium Chloride ER [K-Dur 10] 10 meq PO DAILY 06/11/20 10/20/21 History Magnesium Oxide 400 mg PO DAILY PRN 12/23/20 10/20/21 History Metoprolol Succinate (ER) [Toprol 100 mg PO DAILY 12/23/20 10/20/21 History XL] Apixaban [Eliquis] 5 mg PO BID #60 tab 12/30/20 10/20/21 Rx Amitriptyline HCl [Elavil] 50 mg PO HS 10/20/21 10/20/21 History Ferrous Sulfate [Feosol] 325 mg PO BID 10/20/21 10/20/21 History Furosemide [Lasix] 20 mg PO DAILY PRN 10/20/21 10/20/21 History Levothyroxine Sodium [Synthroid] 75 mcg PO DAILY 10/20/21 10/20/21 History Losartan [Cozaar] 50 mg PO DAILY 10/20/21 10/20/21 History Mupirocin 2% Oint [Bactroban 2% 1 applic TOPICAL BID 10/20/21 10/20/21 History Oint] Allergies Allergy/AdvReac Type Severity Reaction Status Date / Time No Known Allergies Allergy Verified 10/20/21 07:58 Physical Examination On exam patient is sitting up in a chair comfortably in no acute distress. Patient is alert and oriented 3. There is a hematoma over the lateral aspect of the right thigh. Skin is intact. Compartments are soft. Patient is able to actively flex the right thigh without any pain or difficulty. There is no pain with range of motion of the right hip. Sensation intact. Calf is soft and nontender to palpation. Neurovascular status and circulatory status are intact. Results A CT of the right hip dated 10/20/2021 shows: 1. LARGE HEMATOMA MEASURING AT LEAST 8.0 CM WITHIN THE SUBCUTANEOUS ADIPOSE LAYER LATERAL TO THE RIGHT HIP. MORE EXTENSIVE SURROUNDING SUBCUTANEOUS HEMORRHAGE AND BRUISING EXTENDING DOWN TO THE UPPER THIGH LEVEL. 2. UNDERLYING MILD RIGHT HIP OA. NO ACUTE OSSEOUS ABNORMALITY SEEN. 3. POSSIBLE ELONGATED FAT DENSITY LESION, LIKELY LIPOMA, MEASURING 12.2 X 4.0 CM ALONG THE SUPERFICIAL FASCIA ANTEROLATERAL PROXIMAL RIGHT THIGH. GIVEN SIZE AND PATIENT DEMOGRAPHICS, RECOMMEND 6 MONTH FOLLOW-UP CT TO ENSURE STABILITY. SUBSEQUENTLY, HELICAL FOLLOW-UP WILL BE RECOMMENDED. - Labs Labs: Abnormal Lab Results - Last 24 Hours (Table) 10/21/21 10/21/21 Range/Units 06:12 06:12 WBC 20.47 H (4.50-10.00) X 10*3/uL RBC 3.60 L (4.40-5.60) X 10*6/uL Hgb 9.7 L (13.0-17.0) g/dL Hct 30.9 L (39.6-50.0) % MCH 26.9 L (27.0-32.0) pg MCHC 31.4 L (32.0-37.0) g/dL RDW 14.7 H (11.5-14.5) % Plt Count 125 L (140-440) X 10*3/uL MPV 12.5 H (9.5-12.2) fL Immature Gran # 0.32 H (0.00-0.04) X 10*3/uL Neutrophils # 13.44 H (1.80-7.70) X 10*3/uL Monocytes # 4.87 H (0.20-1.00) X 10*3/uL Anion Gap 9.80 L (10.00-18.00) mmol/L BUN 31.1 H (9.0-27.0) mg/dL Est GFR (CKD-EPI)AfAm 55.8 L (60.0-200.0) Est GFR (CKD-EPI)NonAf 48.1 L (60.0-200.0) BUN/Creatinine Ratio 22.21 H (12.00-20.00) Ratio Calcium 7.0 L (8.7-10.3) mg/dL Total Protein 5.2 L (6.2-8.2) g/dL Albumin 3.3 L (3.8-4.9) g/dL H & H 10/19/21 10/21/21 Range/Units 23:12 06:12 Hgb 14.2 9.7 L (13.0-17.5) gm/dL Hct 46.6 30.9 L (39.0-53.0) % Coagulation 10/19/21 Range/Units 23:12 INR 1.1 (<1.2) Result Diagrams: 10/21/21 06:12 10/21/21 06:12 Assessment and Plan Assessment: Fall Right hip hematoma Plan: 1. Recommend warm compresses to the right thigh. 2. Patient may be weightbearing as tolerated to the right lower extremity. 3. No surgical intervention planned. Patient may follow up as an outpatient on an as-needed basis.
--- NOTE | 2021-10-21 15:05 | P.PN ---
Subjective Progress Note Date: 10/21/21 HISTORY OF PRESENT ILLNESS: This is a 76-year-old male patient of [facility] with past medical history of non-small cell lung cancer diagnosed in 2009 status post lobectomy, remote history of tobacco use, remote history of alcohol abuse, alcoholic peripheral neuropathy, hypertension, coronary artery disease, paroxysmal atrial fibrillation, hypothyroidism. Patient states that he was getting out of bed to go to the bathroom and he blacked out following the floor. He complains of right hip pain and noted to have multiple skin tears specially on the elbows. Patient denies having any chest pain, shortness of breath, lightheadedness or dizziness. He is seen today in the emergency center waiting for a bed on the [facility] floor, sister is at bedside. Patient was found to be afebrile, heart rate 89, blood pressure 137/69, pulse ox 90% on room air. Orthostatic vital signs negative. EKG is atrial sensed V paced rhythm. WBC 18.3, hemoglobin 14.2, platelet count 129. Electrolytes normal. BUN 20 creatinine 1.24. Blood sugar 118. Calcium 7.9. Magnesium 1.7. Liver function tests normal. Troponin negative 2 draws. ProBNP 545. Urinalysis negative for infection. Chest x-ray reveals left sided pneumonectomy. Clearing of mild pneumonia in the right lung compared to old exam. No heart failure. CAT scan of the brain and cervical spine revealed cerebral atrophy. No acute intracranial abnormality. Cervical spondylotic changes. No fracture. Brain and cervical spine did not change significantly compared to previous exam. Echocardiogram was a difficult study and hard to assess ejection fraction. Valves were not well visualized. Patient has been seen by cardiology with recommendations to trend troponins, obtain echocardiogram, interrogate pacemaker continue cardiac monitoring and orthostatics, continue home medications including eliquis. 10/21: Patient has been seen by cardiology and his pacemaker was interrogated with no acute findings. Patient was cleared for discharge by cardiology with plan to follow-up with Dr. Zach Pinon as an outpatient. Repeat blood work reveals worsening leukocytosis of 20.4, drop in hemoglobin from 14.2-9.7, platelet count 125. Electrolytes normal, BUN 31 and creatinine 1.4. Glucose 96. Liver function tests normal. Carotid ultrasound reveals 50-69% stenosis of the right carotid bifurcation. Less than 50% stenosis of the left carotid bifurcation. Right hip CAT scan without contrast revealed large hematoma measuring at least 8 cm within the subcutaneous adipose layer lateral to the right hip. More extensive surrounding subcutaneous hemorrhage and bruising extending down to the upper thigh level. Underlying mild right hip OA. No acute osseous abnormality. Possible elongated density lesion likely lipoma 12.2 x 4.0 cm anterior lateral proximal right thigh. Recommend 6 month follow-up. Eliquis will be placed on hold due to hematoma and bleeding. Patient also having bleeding from skin tears on his elbows. Ice to be applied to the right hip and [facility], Dr. Vincent. Note that PT and OT have recommended subacute rehab. Social work has been updated with plan for discharge to subacute rehab. Patient is requesting [facility]. REVIEW OF SYSTEMS: Constitutional: No documented fever, no chills, no night sweats. No weight change. No weakness, fatigue or lethargy. No daytime sleepiness. EENT: No headache. No blurred vision or double vision, no loss of vision. No loss of Hearing, no ringing in the ears, no dizziness. No nasal drainage or co ngestion. No epistaxis. No sore throat. Lungs: No shortness of breath, no cough, no sputum production. no wheezing. Cardiovascular: No chest pain, no lower extremity edema. No palpitations. No p aroxysmal nocturnal dyspnea. No orthopnea. No lightheadedness or dizziness. Reports syncopal episodes. Abdominal: Reports abdominal pain. No nausea, vomiting. No diarrhea. No constipation. No bloody or tarry stools reports loss of appetite. Genitourinary: No dysuria, increased frequency, urgency. No urinary retention. Musculoskeletal: No myalgias. No muscle weakness, no gait dysfunction, no frequent falls. No back pain. No neck pain. Integumentary: Positive skin tears to bilateral elbows wounds, no lesions. No rash or pruritus. Large hematoma to the right hip. No change in hair or nails. Neurologic: No aphasia. No facial droop. No change in mentation. No head injury. No headache. No paralysis. No paresthesia. Psychiatric: No depression. No anxiety. No mood swings. Endocrine: No abnormal blood sugars. No weight change. PHYSICAL EXAMINATION: General: This is a 76-year-old male resting in recliner appears to be comfortable and in no acute distress. Patient's sister is at bedside. HEENT: Head is atraumatic, normocephalic, pupils were equal round reactive to light and recommendation, extraocular muscle movement were intact, sclera nonicteric, conjunctivae were pale, mucous membranes of the mouth are somewhat dry. Neck: Supple, no JVP, normal carotid upstroke bilaterally, no lymphadenopathy. Chest: Decreased breath sounds at the bases, no wheezes, no chest wall tenderness, no intercostal retractions. Heart: First heart sound is normal, second heart sounds normal, systolic ejection murmur at the apex. Abdomen: Soft, nontender, nondistended, positive bowel sounds. Extremities: There is no edema no calf tenderness DP +2 bilaterally. Large hematoma to the right hip. Neurologic examination: Patient is awake alert and oriented 3, cranial nerves II-12 appear grossly intact, muscle power were 5 out of 5 in upper extremities and 5 out of 5 in bilateral lower extremities. ASSESSMENT AND PLAN: 1. Acute syncopal episode. Cardiology consult appreciated. Cardiology has signed off and cleared for discharge. Echocardiogram as above. Patient had pacemaker interrogated, continue cardiac monitoring, orthostatics. Carotid ultrasound as above. 2. Right hip pain secondary to large hematoma and surrounding subcutaneous hemorrhage and bruising. Consult with orthopedics, ice, continue PT and OT, h old eliquis. 3. Multiple skin tears following fall. Continue local wound care to skin tears. 3. Leukocytosis noted to be chronic with exacerbation secondary to large hematoma. 4. Acute blood loss anemia with drop in hemoglobin by 5 g secondary to large hematoma. Continue to monitor hemoglobin closely, hold eliquis. 5. Carotid artery stenosis with 50-69% on the right, less than 50% on the left. Consult with vascular surgery. 6. History of non-small cell lung cancer in 2009 status post left pneumonectomy. 7. Hypertension. Continue losartan 50 mg daily, Toprol-XL 100 mg daily 8. Thrombocytopenia. Recheck CBC tomorrow. 9. Paroxysmal atrial fibrillation. Continue Toprol XL. Hold eliquis. 10. History of sick sinus syndrome status post pacemaker implantation, stable. 11. Alcoholic peripheral neuropathy. Continue amitriptyline 50 mg at bedtime 12. Hypothyroidism. Continue levothyroxine 50 g daily. 13. GI prophylaxis. Protonix 40 mg daily. 14. DVT prophylaxis. SCDs and DUNCAN hose. CODE STATUS: Full code DISCHARGE PLAN Subacute rehab, patient is requesting [facility], PT and OT consults noted, social work has been updated. Impression and plan of care have been directed as dictated by the signing physician. Jada Burr nurse practitioner acting as scribe for signing physician. Objective - Vital Signs Vital signs: Vital Signs Temp 97.4 F L 10/21/21 07:00 Pulse 86 10/21/21 07:00 Resp 18 10/21/21 07:00 BP 98/67 10/21/21 07:00 Pulse Ox 99 10/21/21 07:00 Intake & Output 10/20/21 10/21/21 10/21/21 18:59 06:59 18:59 Intake Total 118 118 Balance 118 118 Weight 83.1 kg Intake: Oral 118 118 Other: # Voids 1 - Labs CBC & Chem 7: 10/21/21 06:12 10/21/21 06:12 Labs: Abnormal Lab Results - Last 24 Hours (Table) 10/21/21 10/21/21 Range/Units 06:12 06:12 WBC 20.47 H (4.50-10.00) X 10*3/uL RBC 3.60 L (4.40-5.60) X 10*6/uL Hgb 9.7 L (13.0-17.0) g/dL Hct 30.9 L (39.6-50.0) % MCH 26.9 L (27.0-32.0) pg MCHC 31.4 L (32.0-37.0) g/dL RDW 14.7 H (11.5-14.5) % Plt Count 125 L (140-440) X 10*3/uL MPV 12.5 H (9.5-12.2) fL Immature Gran # 0.32 H (0.00-0.04) X 10*3/uL Neutrophils # 13.44 H (1.80-7.70) X 10*3/uL Monocytes # 4.87 H (0.20-1.00) X 10*3/uL Anion Gap 9.80 L (10.00-18.00) mmol/L BUN 31.1 H (9.0-27.0) mg/dL Est GFR (CKD-EPI)AfAm 55.8 L (60.0-200.0) Est GFR (CKD-EPI)NonAf 48.1 L (60.0-200.0) BUN/Creatinine Ratio 22.21 H (12.00-20.00) Ratio Calcium 7.0 L (8.7-10.3) mg/dL Total Protein 5.2 L (6.2-8.2) g/dL Albumin 3.3 L (3.8-4.9) g/dL
[2021-10-21] MEDS: LOSARTAN 50 MG TAB PO SCH (15:37)
[2021-10-21] MEDS: METOPROLOL SUCCINATE (ER) 100 MG TAB.ER.24H PO SCH (15:37)
[2021-10-21 15:39] LABS: HCT 31.1 % (39.0-53.0); HGB 9.9 gm/dL (13.0-17.5); Hypochromasia Slight; MCH 27.6 pg (25.0-35.0); MCHC 31.9 g/dL (31.0-37.0); MCV 86.4 fL (80.0-100.0); Platelet Count 153 k/uL (150-450); RDW 14.8 % (11.5-15.5); WBC 24.1 k/uL (3.8-10.6)
[2021-10-21 15:40] LABS: Mean Platelet Volume 10.6
[2021-10-21] MEDS: ATORVASTATIN 80 MG TAB PO SCH (21:36)
[2021-10-21 23:28] LABS: HCT 29.2 % (39.0-53.0); HGB 8.9 gm/dL (13.0-17.5); MCH 26.5 pg (25.0-35.0); MCHC 30.6 g/dL (31.0-37.0); MCV 86.4 fL (80.0-100.0); Platelet Count 117 k/uL (150-450); RBC 3.38 m/uL (4.30-5.90); RDW 14.4 % (11.5-15.5); WBC 20.8 k/uL (3.8-10.6)
[2021-10-22] MEDS: LEVOTHYROXINE 75 MCG TAB PO SCH (05:34)
[2021-10-22] MEDS: METOPROLOL SUCCINATE (ER) 100 MG TAB.ER.24H PO SCH (07:52)
[2021-10-22] MEDS: FERROUS SULFATE 325 MG TAB PO SCH (07:52)
[2021-10-22] MEDS: LOSARTAN 50 MG TAB PO SCH (07:52)
[2021-10-22] MEDS: POTASSIUM CHLORIDE ER 10 MEQ TAB.ER.PRT PO SCH (07:52)
[2021-10-22] MEDS: ACETAMINOPHEN TAB 325 MG TAB PO PRN (07:52)
[2021-10-22] MEDS: TORSEMIDE 20 MG TAB PO SCH (07:53)
--- NOTE | 2021-10-22 08:45 | P.DS ---
Providers Date of admission: 10/21/21 14:58 Expected date of discharge: 10/22/21 Attending physician: Nat Oglesby Consults: 10/20/21 02:09 Consult Physician Urgent Consulting Provider: Markus Bojorquez Consult Reason/Comments: Syncope Do you want consulting provider notified?: Yes, Notify in am 10/21/21 13:11 Consult Physician Routine Consulting Provider: Lauro Vincent Consult Reason/Comments: hematome right hip Do you want consulting provider notified?: Yes 10/21/21 15:02 Consult Physician Routine Consulting Provider: Abiodun Lundberg Consult Reason/Comments: carotid stenosis Do you want consulting provider notified?: Already Contacted Primary care physician: Nat Oglesby [facility] Course: HISTORY OF PRESENT ILLNESS: This is a 76-year-old male patient of [facility] with past medical history of non-small cell lung cancer diagnosed in 2008 status post lobectomy, remote history of tobacco use, remote history of alcohol abuse, alcoholic peripheral neuropathy, hypertension, coronary artery disease, paroxysmal atrial fibrillation, hypothyroidism. Patient states that he was getting out of bed to go to the bathroom and he blacked out following the floor. He complains of right hip pain and noted to have multiple skin tears specially on the elbows. Patient denies having any chest pain, shortness of breath, lightheadedness or dizziness. He is seen today in the emergency center waiting for a bed on the [facility] floor, sister is at bedside. Patient was found to be afebrile, heart rate 89, blood pressure 137/69, pulse ox 90% on room air. Orthostatic vital signs negative. EKG is atrial sensed V paced rhythm. WBC 18.3, hemoglobin 14.2, platelet count 129. Electrolytes normal. BUN 20 creatinine 1.24. Blood sugar 118. Calcium 7.9. Magnesium 1.7. Liver function tests normal. Troponin negative 2 draws. ProBNP 545. Urinalysis negative for infection. Chest x-ray reveals left sided pneumonectomy. Clearing of mild pneumonia in the right lung compared to old exam. No heart failure. CAT scan of the brain and cervical spine revealed cerebral atrophy. No acute intracranial abnormality. Cervical spondylotic changes. No fracture. Brain and cervical spine did not change significantly compared to previous exam. Echocardiogram was a difficult study and hard to assess ejection fraction. Valves were not well visualized. Patient has been seen by cardiology with recommendations to trend troponins, obtain echocardiogram, interrogate pacemaker continue cardiac monitoring and orthostatics, continue home medications including eliquis. 10/21: Patient has been seen by cardiology and his pacemaker was interrogated with no acute findings. Patient was cleared for discharge by cardiology with plan to follow-up with Dr. Zach Pinon as an outpatient. Repeat blood work reveals worsening leukocytosis of 20.4, drop in hemoglobin from 14.2-9.7, platelet count 125. Electrolytes normal, BUN 31 and creatinine 1.4. Glucose 96. Liver function tests normal. Carotid ultrasound reveals 50-69% stenosis of the right carotid bifurcation. Less than 50% stenosis of the left carotid bifurcation. Right hip CAT scan without contrast revealed large hematoma measuring at least 8 cm within the subcutaneous adipose layer lateral to the right hip. More extensive surrounding subcutaneous hemorrhage and bruising extending down to the upper thigh level. Underlying mild right hip OA. No acute osseous abnormality. Possible elongated density lesion likely lipoma 12.2 x 4.0 cm anterior lateral proximal right thigh. Recommend 6 month follow-up. Eliquis will be placed on hold due to hematoma and bleeding. Patient also having bleeding from skin tears on his elbows. Ice to be applied to the right hip and consult with [facility], Dr. Vincent. Note that PT and OT have recommended subacute rehab. Social work has been updated with plan for discharge to subacute rehab. Patient is requesting [facility]. 10/22: Patient has been seen by vascular surgery and plan is for outpatient follow-up. Patient is also been seen by orthopedicswith recommendations for outpatient follow-up as needed. We will plan to hold eliquis for 1 week. Patient has been afebrile, heart rate 108, blood pressure 122/66, pulse ox 95% on room air. Hemoglobin last evening was 8.9 and this morning 8.9. BUN 32 and creatinine 1.2. Patient's first choice for rehab was [facility] which is out of network for his insurance. We are currently waiting for insurance authorization for subacute rehab at [facility]. Patient will be discharged once arrangements are completed. DISCHARGE DIAGNOSES: 1. Acute syncopal episode. 2. Right hip pain secondary to large hematoma and surrounding subcutaneous hemorrhage and bruising. 3. Multiple skin tears following fall. 3. Leukocytosis noted to be chronic with exacerbation secondary to large hematoma. 4. Acute blood loss anemia with drop in hemoglobin by 5 g secondary to large hematoma. 5. Carotid artery stenosis with 50-69% on the right, less than 50% on the left. 6. History of non-small cell lung cancer in 2009 status post left pneumonectomy. 7. Hypertension. 8. Thrombocytopenia. 9. Paroxysmal atrial fibrillation. 10. History of sick sinus syndrome status post pacemaker implantation, stable. 11. Alcoholic peripheral neuropathy. 12. Hypothyroidism. DISCHARGE PLAN [facility] Greater than 35 minutes was utilized and coordinating patient's discharge. Impression and plan of care have been directed as dictated by the signing physician. Jada Burr nurse practitioner acting as scribe for signing physician. Patient Condition at Discharge: Stable Plan - Discharge Summary Discharge Rx Participant: No New Discharge Prescriptions: New Torsemide [Demadex] 20 mg PO DAILY #30 tab Continue Atorvastatin [Lipitor] 80 mg PO HS Potassium Chloride ER [K-Dur 10] 10 meq PO DAILY Magnesium Oxide 400 mg PO DAILY PRN PRN Reason: Muscle Spasm Levothyroxine Sodium [Synthroid] 75 mcg PO DAILY Metoprolol Succinate (ER) [Toprol XL] 100 mg PO DAILY Ferrous Sulfate [Iron (65 MG Elemental)] 325 mg PO BID Losartan [Cozaar] 50 mg PO DAILY Apixaban [Eliquis] 5 mg PO BID #60 tab Discontinued Amitriptyline HCl [Elavil] 50 mg PO HS Mupirocin 2% Oint [Bactroban 2% Oint] 1 applic TOPICAL BID Furosemide [Lasix] 20 mg PO DAILY PRN PRN Reason: swelling Discharge Medication List Atorvastatin [Lipitor] 80 mg PO HS 06/11/20 [History] Potassium Chloride ER [K-Dur 10] 10 meq PO DAILY 06/11/20 [History] Magnesium Oxide 400 mg PO DAILY PRN 12/23/20 [History] Metoprolol Succinate (ER) [Toprol XL] 100 mg PO DAILY 12/23/20 [History] Ferrous Sulfate [Iron (65 MG Elemental)] 325 mg PO BID 10/20/21 [History] Levothyroxine Sodium [Synthroid] 75 mcg PO DAILY 10/20/21 [History] Losartan [Cozaar] 50 mg PO DAILY 10/20/21 [History] Apixaban [Eliquis] 5 mg PO BID #60 tab 10/22/21 [Rx] Torsemide [Demadex] 20 mg PO DAILY #30 tab 10/22/21 [Rx] Follow up Appointment(s)/Referral(s): Sae Pinon MD [STAFF PHYSICIAN] - 1 Week Nat Oglesby MD [Primary Care Provider] - 1 Week (AT [facility]) Abiodun Lundberg DO [STAFF PHYSICIAN] - 1 Week Discharge Disposition: TRANSFER TO SNF/ECF
[2021-10-22 09:06] LABS: HGB 8.9 g/dL (13.0-17.0); MCH 27.1 pg (27.0-32.0); MCHC 31.8 g/dL (32.0-37.0); MCV 85.4 fL (80.0-97.0); Mean Platelet Volume 12.7 fL (9.5-12.2); NRBC Per 100 WBC 0 /100 WBCS (0.0-0.0); Platelet Count 122 X 10*3/uL (140-440); RBC 3.28 X 10*6/uL (4.40-5.60); WBC 22.82 X 10*3/uL (4.50-10.00)
[2021-10-22 10:16] LABS: African American GFR (CKD) 67.2 (60.0-200.0); Albumin 3.2 g/dL (3.8-4.9); Albumin/Globulin Ratio 1.68 (1.60-3.17); Anion Gap 9.7 mmol/L (10.00-18.00); BUN/Creat Ratio 27.33 Ratio (12.00-20.00); Blood Urea Nitrogen 32.8 mg/dL (9.0-27.0); Carbon Dioxide 23.3 mmol/L (20.0-27.5); Globulin 1.9 g/dL (1.6-3.3); Potassium 4.3 mmol/L (3.5-5.5); Total Bilirubin 1.1 mg/dL (0.30-1.20); Total Protein 5.1 g/dL (6.2-8.2)
[2021-10-22 14:28] VITALS: BP 106/59; PULSE 66; RESP 16; TEMP 98
--- NOTE | 2021-10-22 15:06 | P.GSCN ---
History of Present Illness Consult date: 10/22/21 Reason for Consult: Carotid stenosis Requesting physician: Nat Oglesby History of present illness: This is a 76-year-old male who presented to the emergency department 3 days ago for syncopal episode. He has a past medical history including coronary artery disease, atrial fibrillation, dyslipidemia, former tobacco use and former alcohol abuse, non-small cell lung cancer status post left pneumonectomy, hypertension and thyroid disorder. As part of his work upon admission he had a CT of the brain and spine that showed cerebral atrophy. No acute intracranial abnormality. Cervical spondylitic changes. With no fracture. Brain and cervical spine not changed significantly compared to prior exam. Further part o f his workup for syncope they did a carotid duplex which reported 50-69% stenosis on the right carotid bifurcation by peak systolic velocity without any significant stenosis of the left carotid bifurcations. Vascular surgery was consulted for the above. Patient states he has no prior history of carotid disease. He has had an episode where he blacked out and fell. He was worked up by cardiology for syncope with unclear etiology. He does have a history of pacemaker implantation and proximal atrial fibrillation on Eliquis. Patient had pacemaker interrogation reported that device is working normal with no acute findings. Patient will have outpatient follow-up with Dr. Pinon. Patient was also noted to have a hematoma on the right hip with pain for which orthopedics was consulted. He currently denies any shortness of breath, chest pain, weakness, abdominal pain, nausea, vomiting fevers or chills. Review of Systems A 14 point review systems was completed all pertinent positives and negatives as stated in the HPI. Past Medical History Past Medical History: Coronary Artery Disease (CAD), Hypertension, Thyroid Disorder Additional Past Medical History / Comment(s): vertigo Last Myocardial Infarction Date:: 2013 History of Any Multi-Drug Resistant Organisms: None Reported Past Surgical History: Hernia Repair, Pacemaker Additional Past Surgical History / Comment(s): Left lung removed Past Anesthesia/Blood Transfusion Reactions: No Reported Reaction Type of Cardiac Device: Unknown Device Placement Date:: June, Past Psychological History: No Psychological Hx Reported Smoking Status: Never smoker Past Alcohol Use History: None Reported Past Drug Use History: None Reported - Past Family History Father Family Medical History: Memory Impairment Additional Family Medical History / Comment(s): Father at age 71 from a myocardial infarction. Mother Family Medical History: No Reported History Additional Family Medical History / Comment(s): Mother at age 92 from old age. Brother(s) Additional Family Medical History / Comment(s): Patient has 3 brothers alive with no major medical problems. One brother is dying from stomach cancer. Sister(s) Additional Family Medical History / Comment(s): Patient has one sister and she is alive. History of hypertension and hyperlipidemia. Medications and Allergies Home Medications Medication Instructions Recorded Confirmed Type Atorvastatin [Lipitor] 80 mg PO HS 06/11/20 10/20/21 History Potassium Chloride ER [K-Dur 10] 10 meq PO DAILY 06/11/20 10/20/21 History Magnesium Oxide 400 mg PO DAILY PRN 12/23/20 10/20/21 History Metoprolol Succinate (ER) [Toprol 100 mg PO DAILY 12/23/20 10/20/21 History XL] Ferrous Sulfate [Iron (65 MG 325 mg PO BID 10/20/21 10/20/21 History Elemental)] Levothyroxine Sodium [Synthroid] 75 mcg PO DAILY 10/20/21 10/20/21 History Losartan [Cozaar] 50 mg PO DAILY 10/20/21 10/20/21 History Apixaban [Eliquis] 5 mg PO BID #60 tab 10/22/21 10/20/21 Rx Torsemide [Demadex] 20 mg PO DAILY #30 tab 10/22/21 Rx Allergies Allergy/AdvReac Type Severity Reaction Status Date / Time No Known Allergies Allergy Verified 10/20/21 07:58 Surgical - Exam Vital Signs Temp Pulse Resp BP Pulse Ox 97.9 F 89 18 137/69 98 10/19/21 22:19 10/19/21 22:19 10/19/21 22:19 10/19/21 22:19 10/19/21 22:19 General appearance: The patient is alert, oriented, appears in no acute distress. HET: Head is normocephalic and atraumatic. Pupils are equal and reactive. Neck: Supple without lymphadenopathy. Trachea midline. No audible carotid bruit. Heart: S1 S2. Regular rate and rhythm. Lungs: Clear to auscultation bilaterally. Abdomen: Soft, nontender, nondistended. Extremities: Normal skin color and turgor. No cyanosis, rash, ulceration, clubbing, or edema. Radial and pedal pulses are 2/4 bilaterally. Neurological: No focal deficits. Strength and sensation are grossly intact. Results - Labs 10/22/21 06:39 10/22/21 06:39 Abnormal Lab Results - Last 24 Hours (Table) 10/21/21 10/21/21 10/21/21 Range/Units 06:12 06:12 15:13 WBC 20.47 H 24.1 H (4.50-10.00) X 10*3/uL RBC 3.60 L 3.60 L (4.40-5.60) X 10*6/uL Hgb 9.7 L 9.9 L D (13.0-17.0) g/dL Hct 30.9 L 31.1 L (39.6-50.0) % MCH 26.9 L (27.0-32.0) pg MCHC 31.4 L (32.0-37.0) g/dL RDW 14.7 H (11.5-14.5) % Plt Count 125 L (140-440) X 10*3/uL MPV 12.5 H (9.5-12.2) fL Immature Gran # 0.32 H (0.00-0.04) X 10*3/uL Neutrophils # 13.44 H (1.80-7.70) X 10*3/uL Monocytes # 4.87 H (0.20-1.00) X 10*3/uL Anion Gap 9.80 L (10.00-18.00) mmol/L BUN 31.1 H (9.0-27.0) mg/dL Est GFR (CKD-EPI)AfAm 55.8 L (60.0-200.0) Est GFR (CKD-EPI)NonAf 48.1 L (60.0-200.0) BUN/Creatinine Ratio 22.21 H (12.00-20.00) Ratio Calcium 7.0 L (8.7-10.3) mg/dL Total Protein 5.2 L (6.2-8.2) g/dL Albumin 3.3 L (3.8-4.9) g/dL 10/21/21 10/22/21 Range/Units 23:09 06:39 WBC 20.8 H 22.82 H (4.50-10.00) X 10*3/uL RBC 3.38 L 3.28 L (4.40-5.60) X 10*6/uL Hgb 8.9 L 8.9 L (13.0-17.0) g/dL Hct 29.2 L 28.0 L (39.6-50.0) % MCH (27.0-32.0) pg MCHC 30.6 L 31.8 L (32.0-37.0) g/dL RDW 15.0 H (11.5-14.5) % Plt Count 117 L 122 L (140-440) X 10*3/uL MPV 12.7 H (9.5-12.2) fL Immature Gran # (0.00-0.04) X 10*3/uL Neutrophils # (1.80-7.70) X 10*3/uL Monocytes # (0.20-1.00) X 10*3/uL Anion Gap (10.00-18.00) mmol/L BUN (9.0-27.0) mg/dL Est GFR (CKD-EPI)AfAm (60.0-200.0) Est GFR (CKD-EPI)NonAf (60.0-200.0) BUN/Creatinine Ratio (12.00-20.00) Ratio Calcium (8.7-10.3) mg/dL Total Protein (6.2-8.2) g/dL Albumin (3.8-4.9) g/dL Diabetes panel 10/21/21 Range/Units 06:12 Sodium 140 (135-145) mmol/L Potassium 4.5 (3.5-5.5) mmol/L Chloride 106 (96-109) mmol/L Carbon Dioxide 24.2 (20.0-27.5) mmol/L BUN 31.1 H (9.0-27.0) mg/dL Creatinine 1.4 (0.6-1.5) mg/dL Glucose 96 (70-110) mg/dL Calcium 7.0 L (8.7-10.3) mg/dL AST 16 (14-35) U/L ALT 24 (10-49) U/L Alkaline Phosphatase 70 (41-126) U/L Total Protein 5.2 L (6.2-8.2) g/dL Albumin 3.3 L (3.8-4.9) g/dL Calcium panel 10/21/21 Range/Units 06:12 Calcium 7.0 L (8.7-10.3) mg/dL Albumin 3.3 L (3.8-4.9) g/dL Pituitary panel 10/21/21 Range/Units 06:12 Sodium 140 (135-145) mmol/L Potassium 4.5 (3.5-5.5) mmol/L Chloride 106 (96-109) mmol/L Carbon Dioxide 24.2 (20.0-27.5) mmol/L BUN 31.1 H (9.0-27.0) mg/dL Creatinine 1.4 (0.6-1.5) mg/dL Glucose 96 (70-110) mg/dL Calcium 7.0 L (8.7-10.3) mg/dL Adrenal panel 10/21/21 Range/Units 06:12 Sodium 140 (135-145) mmol/L Potassium 4.5 (3.5-5.5) mmol/L Chloride 106 (96-109) mmol/L Carbon Dioxide 24.2 (20.0-27.5) mmol/L BUN 31.1 H (9.0-27.0) mg/dL Creatinine 1.4 (0.6-1.5) mg/dL Glucose 96 (70-110) mg/dL Calcium 7.0 L (8.7-10.3) mg/dL Total Bilirubin 1.10 (0.30-1.20) mg/dL AST 16 (14-35) U/L ALT 24 (10-49) U/L Alkaline Phosphatase 70 (41-126) U/L Total Protein 5.2 L (6.2-8.2) g/dL Albumin 3.3 L (3.8-4.9) g/dL - Imaging Comments: CT of the brain and spine that showed cerebral atrophy. No acute intracranial abnormality. Cervical spondylitic changes. With no fracture. Brain and cervical spine not changed significantly compared to prior exam. Carotid duplex right ICA PSV 194, ICA/CCA ratio 1.26. Left ICA PSV 116, ICA/CCA ratio 1.05 impression 50-69% stenosis of the right carotid bifurcation by peak systolic velocity. Less than 50% stenosis of the left carotid bifurcation. Assessment and Plan Assessment: 1. Asymptomatic right ICA stenosis, 50-69% stenosis of right carotid bifurcation per carotid duplex 2. Syncope and fall 3. History of proximal atrial fibrillation 4. History coronary artery disease 5. Hypertension hyperlipidemia 6. Former smoker 7. Former alcohol abuse Plan: 1. Continue Lipitor 80 mg daily 2. Continue with further recommendations/workup from cardiology 3. No indications for any vascular surgical intervention at this time. Recommend outpatient surveillance. Thank you for this consultation, patient is cleared by vascular surgery once otherwise medically cleared The above dictated assessment and findings were discussed with Dr. Rojas. The impression and plan of care have been directed as dictated.
== END 2021-10-22 15:11 | DRG 312 ==
LOC: EC 22:19 → 6NMEDSUR 10-20 04:52 → OBSVTOIN 10-21 14:58
PROVIDERS: ADMIT Internal Medicine; ATTEND Internal Medicine
PROC: 4B02XSZ Measurement of Cardiac Pacemaker, External Approach (ICD-10-PCS; principal; 2021-10-21)
PROC: 0JD Subcutaneous Tissue and Fascia, Extraction (ICD-10-PCS; 2021-10-21)
DX: R55 Syncope and collapse (principal); D62 Acute posthemorrhagic anemia; I47.1 Supraventricular tachycardia; D69.6 Thrombocytopenia, unspecified; E03.9 Hypothyroidism, unspecified; E78.5 Hyperlipidemia, unspecified; G31.89 Other specified degenerative diseases of nervous system; M47.812 Spondylosis without myelopathy or radiculopathy, cervical region; S40.211A Abrasion of right shoulder, initial encounter; M16.11 Unilateral primary osteoarthritis, right hip; S51.011A Laceration without foreign body of right elbow, initial encounter; S51.012A Laceration without foreign body of left elbow, initial encounter; S51.812A Laceration without foreign body of left forearm, initial encounter; G62.1 Alcoholic polyneuropathy; I10 Essential (primary) hypertension; I08.1 Rheumatic disorders of both mitral and tricuspid valves; S70.01XA Contusion of right hip, initial encounter; I49.5 Sick sinus syndrome; I25.10 Atherosclerotic heart disease of native coronary artery without angina pectoris; I25.2 Old myocardial infarction; I27.20 Pulmonary hypertension, unspecified; I48.0 Paroxysmal atrial fibrillation; I65.21 Occlusion and stenosis of right carotid artery; Y92.009 Unspecified place in unspecified non-institutional (private) residence as the place of occurrence of the external cause; Z79.01 Long term (current) use of anticoagulants; Z79.890 Hormone replacement therapy; Z79.899 Other long term (current) drug therapy; Z80.0 Family history of malignant neoplasm of digestive organs; Z82.49 Family history of ischemic heart disease and other diseases of the circulatory system; Z85.118 Personal history of other malignant neoplasm of bronchus and lung; Z85.46 Personal history of malignant neoplasm of prostate; Z87.891 Personal history of nicotine dependence; Z95.0 Presence of cardiac pacemaker; Z87.19 Personal history of other diseases of the digestive system; W19.XXXA Unspecified fall, initial encounter
CPT/HCPCS: 36415; 70450; 71045; 72125; 80053; 81003; 83735; 83880; 84484; 85025; 85027; 85610; 85730; 93005; 93306; 93880; 96360; 96361; 99285

== ENCOUNTER 2022-06-03 10:35 | Emergency (ER) | payer MEDICARE ==
[2022-06-03 13:16] LABS: INR 1.1 (<1.2); Partial Thromboplastin Time 27.1 sec (22.0-30.0); Prothrombin Time 11.5 sec (9.0-12.0)
[2022-06-03 13:30] LABS: Albumin 4.3 g/dL (3.5-5.0); Calcium 8.5 mg/dL (8.4-10.2); Potassium 4.3 mmol/L (3.5-5.1); Total Bilirubin 1.4 mg/dL (0.2-1.3)
[2022-06-03 13:37] LABS: HCT 40.5 % (39.0-53.0); HGB 13.5 gm/dL (13.0-17.5); MCHC 33.4 g/dL (31.0-37.0); MCV 83.8 fL (80.0-100.0); Mean Platelet Volume 9.9; Platelet Count 195 k/uL (150-450); RBC 4.82 m/uL (4.30-5.90); RDW 14.6 % (11.5-15.5); WBC 18.4 k/uL (3.8-10.6)
[2022-06-03] MEDS ORDERED: OXYMETAZOLINE 0.05% NASL SPRAY 1 SPRAY BOTTLE NASAL STA (14:00)
[2022-06-03 14:02] VITALS: RESP 18
--- NOTE | 2022-06-03 14:03 | ED ---
General Adult HPI - General Chief complaint: ENT Stated complaint: nosebleed Time Seen by Provider: 06/03/22 13:55 Source: patient, RN notes reviewed, old records reviewed Mode of arrival: ambulatory Limitations: no limitations - History of Present Illness Initial comments: This is a 77-year-old male who was sent in by his doctor's office. Patient stat es he started having nosebleed this morning and he couldn't get it to stop; his doctor he also is complaining of significant swelling to his legs the last 3 weeks and so they told him to go to the emergency department. Patient states the swelling is been ongoing for 3 weeks she's been on a water pill 3 days week but it is not helping much. Patient denies any chest pain palpitations or difficulty breathing. Patient denies any recent fever chills or cough. Patient denies any nausea vomiting diarrhea. Patient denies any new medications besides Lasix. Patient denies any pain in the legs just significant swelling that goes all the up to his knees. The nosebleed was on the left naris and it is stopped prior to this interview. - Related Data Home Medications Medication Instructions Recorded Confirmed Atorvastatin [Lipitor] 80 mg PO HS 06/11/20 10/20/21 Potassium Chloride ER [K-Dur 10] 10 meq PO DAILY 06/11/20 10/20/21 Magnesium Oxide 400 mg PO DAILY PRN 12/23/20 10/20/21 Metoprolol Succinate (ER) [Toprol 100 mg PO DAILY 12/23/20 10/20/21 XL] Ferrous Sulfate [Iron (65 MG 325 mg PO BID 10/20/21 10/20/21 Elemental)] Levothyroxine Sodium [Synthroid] 75 mcg PO DAILY 10/20/21 10/20/21 Losartan [Cozaar] 50 mg PO DAILY 10/20/21 10/20/21 Previous Rx's Medication Instructions Recorded Apixaban [Eliquis] 5 mg PO BID #60 tab 10/22/21 Torsemide [Demadex] 20 mg PO DAILY #30 tab 10/22/21 Allergies Allergy/AdvReac Type Severity Reaction Status Date / Time No Known Allergies Allergy Verified 10/20/21 07:58 Review of Systems ROS Statement: Those systems with pertinent positive or pertinent negative responses have been documented in the HPI. ROS Other: All systems not noted in ROS Statement are negative. Past Medical History Past Medical History: Coronary Artery Disease (CAD), Hypertension, Thyroid Disorder Additional Past Medical History / Comment(s): vertigo Last Myocardial Infarction Date:: 2013 History of Any Multi-Drug Resistant Organisms: None Reported Past Surgical History: Hernia Repair, Pacemaker Additional Past Surgical History / Comment(s): Left lung removed Past Anesthesia/Blood Transfusion Reactions: No Reported Reaction Type of Cardiac Device: Unknown Device Placement Date:: June, Past Psychological History: No Psychological Hx Reported Smoking Status: Never smoker Past Alcohol Use History: None Reported Past Drug Use History: None Reported - Past Family History Father Family Medical History: Memory Impairment Additional Family Medical History / Comment(s): Father at age 71 from a myocardial infarction. Mother Family Medical History: No Reported History Additional Family Medical History / Comment(s): Mother at age 92 from old age. Brother(s) Additional Family Medical History / Comment(s): Patient has 3 brothers alive with no major medical problems. One brother is dying from stomach cancer. Sister(s) Additional Family Medical History / Comment(s): Patient has one sister and she is alive. History of hypertension and hyperlipidemia. General Exam - General Exam Comments Initial Comments: GENERAL: Patient is well-developed and well-nourished. Patient is nontoxic and well- hydrated and is in no acute distress. ENT: Neck is soft and supple. No significant lymphadenopathy is noted. Oropharynx is clear. Moist mucous membranes. Neck has full range of motion without eliciting any pain. EYES: The sclera were anicteric and conjunctiva were pink and moist. Extraocular movements were intact and pupils were equal round and reactive to light. Eyelids were unremarkable. PULMONARY: Patient has completely diminished breath sounds on the left bilaterally. No audible rales rhonchi or wheezing was noted. CARDIOVASCULAR: There is a regular rate and rhythm without any murmurs gallops or rubs. ABDOMEN: Soft and nontender with normal bowel sounds. SKIN: Skin is clear with no lesions or rashes and otherwise unremarkable. NEUROLOGIC: Patient is alert and oriented x3. Cranial nerves II through XII are grossly intact. Motor and sensory are also intact. Normal speech, volume and content. Symmetrical smile. MUSCULOSKELETAL: Normal extremities with adequate strength and full range of motion. 2+ edema bilaterally LYMPHATICS: No significant lymphadenopathy is noted PSYCHIATRIC: Normal psychiatric evaluation. Limitations: no limitations Course Vital Signs 06/03/22 06/03/22 06/03/22 10:52 13:59 15:51 Temperature 97 F L 98 F Pulse Rate 69 70 74 Respiratory 16 18 18 Rate Blood Pressure 139/87 153/71 146/77 O2 Sat by Pulse 96 96 96 Oximetry Medical Decision Making - Medical Decision Making Patient was given Afrin spray in the emergency department for future bleeds. Patient had no further bleeding while in the emergency department. Was pt. sent in by a medical professional or institution? @ -Primary medical care doctor Did you speak to anyone other than the patient for history? @ -Sister Did you review nursing and triage notes? @ -Agree with the triage notes Were old charts reviewed? @ -I looked up previous x-rays to compare to this x-ray of his chest Differential Diagnosis? @ -. Pedal edema, DVT, cellulitis, EKG interpreted by me (3pts min.)? @ -EKG was interpreted by myself shows an electronically paced rhythm at 60 bpm VA interval 193 119 QT Interval 370 QTC Is 384. Patient's EKG Shows No ST Segment Elevation or Depression. X-rays interpreted by me (1pt min.)? @ -Yes chest x-ray showed complete opacification of left lung patient had a pneumonectomy years ago. CT interpreted by me (1pt min.)? @ -No U/S interpreted by me (1pt. min.)? @ -No What testing was considered but not performed? (CT, X-rays, U/S, labs)? Why? @ -Ultrasound however was noted to because I did not believe to be a DVT was bilaterally has no calf tenderness. What meds were considered but not given? Why? @ -None Did you discuss the management of the patient with other professionals? @ -None Did you reconcile home meds? @ -No Was smoking cessation discussed for >3mins.? @ -No Was critical care preformed (if so, how long)? @ -No Were there social determinants of health that impacted care today? How? (Homelessness, low income, unemployed, alcoholism, drug addiction, transportation, low edu. Level, literacy, decrease access to med. care, halfway, rehab)? @ -Deafness patient is extremely hard of hearing and very difficult for him to hear instructions I called his sister and spoke with her and gave her the instructions verbally and I'm asked the nurse to write them also and ensures that he has gotten the instructions. Was there de-escalation of care discussed even if they declined? (Discuss DNR or withdrawal of care, Hospice)? @ -No What co-morbidities impacted this encounter? (DM, HTN, Smoking, COPD, CAD, Cancer, CVA, Hep., AIDS, mental health diagnosis, sleep apnea, morbid obesity)? @ -Congestive heart failure history contributed to his pedal edema Was patient admitted / discharged? @ -Discharged. Patient was given Lasix while in the emergency department given instructions to take Lasix for 5 days in a row. Patient's epistaxis was controlled while in the emergency department he was sent home with Afrin and nose clamp Undiagnosed new problem with uncertain prognosis? @ -None Drug Therapy requiring intensive monitoring for toxicity (Heparin, Nitro, I nsulin, Cardizem)? @ -None Were any procedures done? @ -None. Diagnosis/symptom? @ -Pedal edema Acute, or Chronic, or Acute on Chronic? @ -Acute on chronic Uncomplicated (without systemic symptoms) or Complicated (systemic symptoms)? @ -Uncomplicated Side effects of treatment? @ -None Exacerbation, Progression, or Severe Exacerbation] @ -Exacerbation Poses a threat to life or bodily function? @ -No Diagnosis/symptom? @ -Epistaxis Acute, or Chronic, or Acute on Chronic? @ -Acute Uncomplicated (without systemic symptoms) or Complicated (systemic symptoms)? @ -Uncomplicated Side effects of treatment? @ -[none] Exacerbation, Progression, or Severe Exacerbation] @ -[no] Poses a threat to life or bodily function? @ -[no] - Lab Data Result diagrams: 06/03/22 12:52 06/03/22 12:52 Lab Results 06/03/22 06/03/22 06/03/22 Range/Units 12:52 12:52 12:52 WBC 18.4 H (3.8-10.6) k/uL RBC 4.82 (4.30-5.90) m/uL Hgb 13.5 (13.0-17.5) gm/dL Hct 40.5 (39.0-53.0) % MCV 83.8 (80.0-100.0) fL MCH 28.0 (25.0-35.0) pg MCHC 33.4 (31.0-37.0) g/dL RDW 14.6 (11.5-15.5) % Plt Count 195 (150-450) k/uL MPV 9.9 Neutrophils % (Manual) 65 % Lymphocytes % (Manual) 13 % Monocytes % (Manual) 22 % Basophils % (Manual) 1 % Neutrophils # (Manual) 11.96 H (1.3-7.7) k/uL Lymphocytes # (Manual) 2.39 (1.0-4.8) k/uL Monocytes # (Manual) 4.05 H (0-1.0) k/uL Basophils # (Manual) 0.18 (0-0.2) k/uL Nucleated RBCs 0 (0-0) /100 WBC Manual Slide Review Performed PT 11.5 (9.0-12.0) sec INR 1.1 (<1.2) APTT 27.1 (22.0-30.0) sec Sodium 140 (137-145) mmol/L Potassium 4.3 (3.5-5.1) mmol/L Chloride 106 (98-107) mmol/L Carbon Dioxide 27 (22-30) mmol/L Anion Gap 7 mmol/L BUN 25 H (9-20) mg/dL Creatinine 1.14 (0.66-1.25) mg/dL Est GFR (CKD-EPI)AfAm 71 (>60 ml/min/1.73 sqM) Est GFR (CKD-EPI)NonAf 62 (>60 ml/min/1.73 sqM) Glucose 103 H (74-99) mg/dL Calcium 8.5 (8.4-10.2) mg/dL Total Bilirubin 1.4 H (0.2-1.3) mg/dL AST 24 (17-59) U/L ALT 20 (4-49) U/L Alkaline Phosphatase 74 (38-126) U/L NT-Pro-B Natriuret Pep pg/mL Total Protein 7.0 (6.3-8.2) g/dL Albumin 4.3 (3.5-5.0) g/dL 06/03/22 Range/Units 12:52 WBC (3.8-10.6) k/uL RBC (4.30-5.90) m/uL Hgb (13.0-17.5) gm/dL Hct (39.0-53.0) % MCV (80.0-100.0) fL MCH (25.0-35.0) pg MCHC (31.0-37.0) g/dL RDW (11.5-15.5) % Plt Count (150-450) k/uL MPV Neutrophils % (Manual) % Lymphocytes % (Manual) % Monocytes % (Manual) % Basophils % (Manual) % Neutrophils # (Manual) (1.3-7.7) k/uL Lymphocytes # (Manual) (1.0-4.8) k/uL Monocytes # (Manual) (0-1.0) k/uL Basophils # (Manual) (0-0.2) k/uL Nucleated RBCs (0-0) /100 WBC Manual Slide Review PT (9.0-12.0) sec INR (<1.2) APTT (22.0-30.0) sec Sodium (137-145) mmol/L Potassium (3.5-5.1) mmol/L Chloride (98-107) mmol/L Carbon Dioxide (22-30) mmol/L Anion Gap mmol/L BUN (9-20) mg/dL Creatinine (0.66-1.25) mg/dL Est GFR (CKD-EPI)AfAm (>60 ml/min/1.73 sqM) Est GFR (CKD-EPI)NonAf (>60 ml/min/1.73 sqM) Glucose (74-99) mg/dL Calcium (8.4-10.2) mg/dL Total Bilirubin (0.2-1.3) mg/dL AST (17-59) U/L ALT (4-49) U/L Alkaline Phosphatase (38-126) U/L NT-Pro-B Natriuret Pep 1200 pg/mL Total Protein (6.3-8.2) g/dL Albumin (3.5-5.0) g/dL Disposition Clinical Impression: Epistaxis, Pedal edema Disposition: HOME SELF-CARE Condition: Good Instructions (If sedation given, give patient instructions): Leg Edema (ED) Additional Instructions: Patient should take Lasix every day for 5 days straight and then go back to 3 days a week and then follow up with Dr. Oglesby. Patient has epistaxis patient blow all the clots out of his nose spray Afrin in the nose and then clamped the nose for 20 minutes she should do this twice and continues to bleed and it continues after that, the emergency department. Is patient prescribed a controlled substance at d/c from ED?: No Referrals: Nat Oglesby MD [Primary Care Provider] - 1-2 days Time of Disposition: 15:50
[2022-06-03 14:23] LABS: Nucleated Red Blood Cells 0 /100 WBC (0-0)
[2022-06-03 14:25] LABS: Basophils # (M) 0.18 k/uL (0-0.2); Lymphocytes # (M) 2.39 k/uL (1.0-4.8); Monocytes # (M) 4.05 k/uL (0-1.0); Neutrophils # (M) 11.96 k/uL (1.3-7.7); Neutrophils % (M) 65 %; Total Cells Counted 200
--- NOTE | 2022-06-03 14:36 | XR ---
EXAMINATION TYPE: XR chest 2V DATE OF EXAM: 06/03/2022 2:29 PM COMPARISON: Chest radiographs from 10/19/2021 TECHNIQUE: XR chest 2V Frontal and lateral views of the chest. CLINICAL INDICATION:Male, 77 years old with history of Difficulty breathing ; FINDINGS: Lungs/Pleura: There left upper lobe surgical changes with clips present. The left lung is completely opacified. Is no evidence of pleural effusion, focal consolidation, or pneumothorax. Pulmonary vascularity: Unremarkable. Heart/mediastinum: Cardiomediastinal silhouette is unremarkable. Similar leftward shift of the media stinum. Three lead cardiac conduction device overlying the left hemithorax with lead tips projecting over the right ventricle, right atrium and coronary sinus. Musculoskeletal: No acute osseous pathology. IMPRESSION: Complete left lung opacification which could represent large pleural effusion and/or atelectasis give n leftward shift of the mediastinum.
[2022-06-03] MEDS ORDERED: FUROSEMIDE 10 MG/ML 4 ML VIAL IV STA (15:26)
[2022-06-03] MEDS ORDERED: FUROSEMIDE 40 MG TAB PO STA (15:40)
[2022-06-03 15:57] VITALS: BP 146/77; PULSE 74; TEMP 98
== END 2022-06-03 16:04 | disposition home or self-care (01) ==
LOC: EC 10:35
DX: R04.0 Epistaxis (principal); R60.9 Edema, unspecified; I11.9 Hypertensive heart disease without heart failure; I25.10 Atherosclerotic heart disease of native coronary artery without angina pectoris; I25.2 Old myocardial infarction; E07.9 Disorder of thyroid, unspecified; Z79.890 Hormone replacement therapy; Z79.899 Other long term (current) drug therapy
CPT/HCPCS: 36415; 71046; 80053; 83880; 85025; 85610; 85730; 93005; 99284

== ENCOUNTER 2022-08-21 11:33 | Inpatient (IN) | payer MEDICARE ==
--- NOTE | 2022-08-21 12:34 | XR ---
EXAMINATION TYPE: XR tibia fibula LT DATE OF EXAM: 08/21/2022 COMPARISON: NONE HISTORY: Pain TECHNIQUE: Two views are submitted. FINDINGS: The osseous structures are intact. The joint spaces are preserved. Diffuse soft tissue edema partic ularly noted along the lateral malleolus. Hypertrophic arthropathy of the patellofemoral joint and mild arthropathy of the medial compartment o f the knee joint. Vascular calcifications noted. Soft tissue calcification in the region of the Achil les insertion into the calcaneus. Occasionally be associated with tendinopathy. IMPRESSION: 1. No acute osseous abnormality. Soft tissue tissue edema and arthropathy.
--- NOTE | 2022-08-21 12:34 | XR ---
EXAMINATION TYPE: XR Hip LT and AP Pelvis DATE OF EXAM: 08/21/2022 12:27 PM INDICATION: Patient age:Male; 77 years old; Reason for study: Trauma; [facility]. COMPARISON: None. TECHNIQUE: The left hip was examined in the frontal and lateral projections and a AP pelvis. FINDINGS: No evidence of any acute osseous pathology, joint dislocation, or soft tissue swelling. Mil d bilateral medial joint space narrowing with acetabular sclerosis and marginal steatosis. Stable lef t proximal femur bone island. Pelvic phlebolith. Multilevel degenerative changes visualized spine. IMPRESSION: 1. No acute osseous pathology. 2. Mild osteoarthritic changes of both hips.
--- NOTE | 2022-08-21 14:34 | ED ---
General Adult HPI - General Chief complaint: Extremity Injury, Lower Stated complaint: lt hip injury Time Seen by Provider: 08/21/22 11:45 Source: patient, EMS, RN notes reviewed, old records reviewed Mode of arrival: EMS Limitations: no limitations - History of Present Illness Initial comments: This a 77-year-old male who presents emergency Department complaining of left hip pain and left lower leg pain. Patient states he fell 10 days ago and since then his left hip is been hurting him but he is able to ambulate. Patient states he is on eliquis for atrial fibrillation. Patient went to see Dr. Oglesby today in the office and he had him transferred to the hospital by EMS. Patient has no subsequent falls - Related Data Home Medications Medication Instructions Recorded Confirmed Atorvastatin [Lipitor] 80 mg PO HS 06/11/20 08/21/22 Magnesium Oxide 400 mg PO DAILY PRN 12/23/20 08/21/22 Metoprolol Succinate (ER) [Toprol 100 mg PO DAILY 12/23/20 08/21/22 XL] Losartan [Cozaar] 50 mg PO DAILY 10/20/21 08/21/22 Bumetanide [Bumex] 1 mg PO BID 08/21/22 08/21/22 Empagliflozin [Jardiance] 10 mg PO DAILY 08/21/22 08/21/22 Ipratropium-Albuterol Nebulize 3 ml INHALATION RT-QID PRN 08/21/22 08/21/22 [Duoneb 0.5 mg-3 mg/3 ml Soln] Levothyroxine Sodium [Synthroid] 88 mcg PO DAILY 08/21/22 08/21/22 traZODone HCL [Desyrel] 100 mg PO HS 08/21/22 08/21/22 Previous Rx's Medication Instructions Recorded Apixaban [Eliquis] 5 mg PO BID #60 tab 10/22/21 Allergies Allergy/AdvReac Type Severity Reaction Status Date / Time No Known Allergies Allergy Verified 08/21/22 13:33 Review of Systems ROS Statement: Those systems with pertinent positive or pertinent negative responses have been documented in the HPI. ROS Other: All systems not noted in ROS Statement are negative. Past Medical History Past Medical History: Coronary Artery Disease (CAD), Hypertension, Thyroid Disorder Additional Past Medical History / Comment(s): vertigo Last Myocardial Infarction Date:: 2013 History of Any Multi-Drug Resistant Organisms: None Reported Past Surgical History: Hernia Repair, Pacemaker Additional Past Surgical History / Comment(s): Left lung removed Past Anesthesia/Blood Transfusion Reactions: No Reported Reaction Type of Cardiac Device: Unknown Device Placement Date:: June, Past Psychological History: No Psychological Hx Reported Smoking Status: Never smoker Past Alcohol Use History: None Reported Past Drug Use History: None Reported - Past Family History Father Family Medical History: Memory Impairment Additional Family Medical History / Comment(s): Father at age 71 from a myocardial infarction. Mother Family Medical History: No Reported History Additional Family Medical History / Comment(s): Mother at age 92 from old age. Brother(s) Additional Family Medical History / Comment(s): Patient has 3 brothers alive with no major medical problems. One brother is dying from stomach cancer. Sister(s) Additional Family Medical History / Comment(s): Patient has one sister and she is alive. History of hypertension and hyperlipidemia. General Exam - General Exam Comments Initial Comments: GENERAL: Patient is well-developed and well-nourished. Patient is nontoxic and well- hydrated and is in mild distress. ENT: Neck is soft and supple. No significant lymphadenopathy is noted. Oropharynx is clear. Moist mucous membranes. Neck has full range of motion without eliciting any pain. EYES: The sclera were anicteric and conjunctiva were pink and moist. Extraocular movements were intact and pupils were equal round and reactive to light. Eyelids were unremarkable. PULMONARY: Unlabored respirations. Good breath sounds bilaterally. No audible rales rhonchi or wheezing was noted. CARDIOVASCULAR: There is a regular rate and rhythm without any murmurs gallops or rubs. ABDOMEN: Soft and nontender with normal bowel sounds. SKIN: Skin is clear with no lesions or rashes and otherwise unremarkable. NEUROLOGIC: Patient is alert and oriented x3. Cranial nerves II through XII are grossly intact. Motor and sensory are also intact. Normal speech, volume and content. Symmetrical smile. MUSCULOSKELETAL: Patient has full range of motion of left hip however he has some tenderness to the hip laterally. Patient also has a large hematoma on the anterior lateral aspect of the lower leg right over the fibula. Patient has tenderness in that area as well LYMPHATICS: No significant lymphadenopathy is noted PSYCHIATRIC: Normal psychiatric evaluation. Limitations: no limitations Course Vital Signs 03/17/23 03/17/23 11:37 11:49 Temperature 97.6 F Pulse Rate 91 Respiratory 20 Rate Blood Pressure 143/65 O2 Sat by Pulse 98 Oximetry Medical Decision Making - Medical Decision Making Was pt. sent in by a medical professional or institution (, [facility], LINEN ROOM HOUSEPERSON, urgent care, hospital, or group home...) When possible be specific @ -Dr. Oglesby sent the patient to the emergency department Did you speak to anyone other than the patient for history (EMS, parent, family, police, friend...)? What history was obtained from this source @ -Sister gave quite a bit of a history Did you review nursing and triage notes (agree or disagree)? Why? @ -I reviewed and agree with nursing and triage notes Were old charts reviewed (outside hosp., previous admission, EMS record, old EKG, old radiological studies, urgent care reports/EKG's, group home records)? Report findings @ -No Differential Diagnosis (chest pain, altered mental status, abdominal pain women, abdominal pain men, vaginal bleeding, weakness, fever, dyspnea, syncope, headache, dizziness, GI bleed, back pain, seizure, CVA, palpatations, mental health, musculoskeletal)? @ -Differential Musculoskeletal Muscular strain, contusion, ligament sprain, fracture, arthritis, septic arthritis, bursitis, cellulitis, muscle spasm, nerve compression, DVT, arterial occlusion, herpes zoster, electrolyte abnormality, tumor.... This is not meant to be in all inclusive list EKG interpreted by me (3pts min.). @ -As above X-rays interpreted by me (1pt min.). @ -X-ray of the left hip and x-ray of the tibia-fibula was interpreted by myself in showed no acute abnormality. CT interpreted by me (1pt min.). @ -CT of the hip showed no acute fracture U/S interpreted by me (1pt. min.). @ -None done What testing was considered but not performed or refused? (CT, X-rays, U/S, labs)? Why? @ -None What meds were considered but not given or refused? Why? @ -None Did you discuss the management of the patient with other professionals (professionals i.e. , [facility], [employer] ROOM HOUSEPERSON, lab, RT, psych nurse, transition social worker, director investor relations, teacher, veterinary medical officer, case consultant)? Give summary @ -Spoke with Dr. Oglesby he agreed to admit the patient admitted the patient I consult the dorsal as he requested Was smoking cessation discussed for >3mins.? @ -No Was critical care preformed (if so, how long)? @ -No Were there social determinants of health that impacted care today? How? (Homelessness, low income, unemployed, alcoholism, drug addiction, transportation, low edu. Level, literacy, decrease access to med. care, skilled nursing, rehab)? @ -No Was there de-escalation of care discussed even if they declined (Discuss DNR or withdrawal of care, Hospice)? DNR status @ -No What co-morbidities impacted this encounter? (DM, HTN, Smoking, COPD, CAD, Cancer, CVA, ARF, Chemo, Hep., AIDS, mental health diagnosis, sleep apnea, mo rbid obesity)? @ -None Was patient admitted / discharged? Hospital course, mention meds given and route, prescriptions, significant lab abnormalities, going to OR and other pertinent info. @ -Patient was able to ambulate however Dr. Oglesby was concerned about a large hematoma and the edema in the patient's thigh on the CAT scan and wanted or so to evaluate the patient. Undiagnosed new problem with uncertain prognosis? @ -No Drug Therapy requiring intensive monitoring for toxicity (Heparin, Nitro, Insulin, Cardizem)? @ -No Were any procedures done? @ -No Diagnosis/symptom? @ -Hematoma leg Acute, or Chronic, or Acute on Chronic? @ -Acute Uncomplicated (without systemic symptoms) or Complicated (systemic symptoms)? @ -Uncomplicated Side effects of treatment? @ -No Exacerbation, Progression, or Severe Exacerbation? @ -No Poses a threat to life or bodily function? How? (Chest pain, [place], [place], pneumonia, PE, COPD, DKA, ARF, appy, cholecystitis, CVA, Diverticulitis, Homicidal, Suicidal, threat to staff... and all critical care pts) @ -No Diagnosis/symptom? @ -Hematoma thigh Acute, or Chronic, or Acute on Chronic? @ -Acute Uncomplicated (without systemic symptoms) or Complicated (systemic symptoms)? @ -default Side effects of treatment? @ -none Exacerbation, Progression, or Severe Exacerbation] @ -no Poses a threat to life or bodily function? @ -no Disposition Clinical Impression: Hematoma of leg, Hematoma of thigh Disposition: ADMITTED IP TO THIS HOSP Referrals: Nat Oglesby MD [Primary Care Provider] - 1-2 days Time of Disposition: 15:04
[2022-08-21] MEDS ORDERED: MORPHINE SULFATE 2 MG/ML SYRINGE IM STA (14:45)
--- NOTE | 2022-08-21 14:50 | CT ---
EXAMINATION TYPE: CT hip LT wo con DATE OF EXAM: 08/21/2022 COMPARISON: None HISTORY: trauma CT DLP: 486.1 mGycm Automated exposure control for dose reduction was used. FINDINGS: There is no hip fracture or dislocation. The visualized left hemipelvis is intact. There is no diastasis of the pubic symphysis and left SI joint. The quadriceps musculature appears prominent and heterogeneous consistent with edema or possibly intr amuscular hemorrhage. No discrete fluid collection or masses seen. IMPRESSION: 1. No fracture or dislocation. 2. Evidence of trauma to the quadriceps muscles of the left hip as described above. IMPRESSION:
[2022-08-21] MEDS ORDERED: SODIUM CHLORIDE 0.9% 1,000 ML IV ONE (15:04)
[2022-08-21] MEDS ORDERED: MORPHINE SULFATE 2 MG/ML SYRINGE IVP STA (15:16)
[2022-08-21 15:58] LABS: HCT 33.6 % (39.0-53.0); HGB 10.3 gm/dL (13.0-17.5); Hypochromasia Moderate; MCH 21.9 pg (25.0-35.0); MCHC 30.6 g/dL (31.0-37.0); Mean Platelet Volume 8.5; Microcytosis Moderate; Platelet Count 214 k/uL (150-450); WBC 20.3 k/uL (3.8-10.6)
[2022-08-21 16:12] LABS: Albumin 3.9 g/dL (3.5-5.0); Calcium 7.8 mg/dL (8.4-10.2); Potassium 4.1 mmol/L (3.5-5.1); Total Bilirubin 1.8 mg/dL (0.2-1.3); Total Protein 6.5 g/dL (6.3-8.2)
[2022-08-21 16:22] LABS: MCV 71.5 fL (80.0-100.0)
[2022-08-21 16:50] LABS: Lymphocytes # (M) 1.83 k/uL (1.0-4.8); Monocytes # (M) 2.84 k/uL (0-1.0); Neutrophils # (M) 15.63 k/uL (1.3-7.7); Neutrophils % (M) 77 %; Nucleated Red Blood Cells 0 /100 WBC (0-0); Total Cells Counted 100
[2022-08-21] MEDS ORDERED: MAGNESIUM OXIDE 400 MG TAB PO PRN (17:57)
[2022-08-21] MEDS ORDERED: IPRATROPIUM-ALBUTEROL 3 ML NEB INHALATION PRN (17:57)
[2022-08-21] MEDS ORDERED: ALBUTEROL NEBULIZED 2.5 MG/3 ML INHALATION PRN (18:15)
[2022-08-21] MEDS ORDERED: IPRATROPIUM 0.5 MG/2.5 ML NEBU INHALATION PRN (18:15)
[2022-08-21] MEDS: HYDROmorphone 0.5 MG/0.5 ML SYRINGE IVP PRN (18:17)
--- NOTE | 2022-08-21 18:29 | P.CNOR ---
History of Present Illness - [facility] Consult date: 08/21/22 Consult reason: other (Left lower extremity hematoma) History of present illness: Patient is a 77-year-old male who was initially evaluated in his primary care office earlier today with regards to left lower extremity pain and swelling. Apparently the patient had a fall about 10 days ago landing on the left side. After being evaluated in office by his primary care doctor who recommended he report to the emergency room for further evaluation. After being evaluated in the emergency room, imaging and lab tests were done. The edges demonstrated no obvious fractures or dislocations. Report of the computed tomography scan demonstrated hematoma changes in the left upper thigh. Physical exam demonstrated the obvious hematoma of the left lower extremity. Patient's lab work came back with significant leukocytosis with other mild abnormalities. Patient has been admitted under internal medicine, our orth opedic team was also consulted. Patient was evaluated by myself today in the emergency room, he is very hard of hearing. Patient seems very irritated and frustrated with regards to the left lower extremity at this time. He states most of the pain is in the lower leg where the swelling is just below the knee, he is also complaining of pain in the anterior lateral thigh. He denies any pain of the right lower extremity, he denies any pain in the bilateral upper extremities. He denies hitting his head during the fall about 10 days ago. Patient does take a blood thinner for atrial fibrillation. Patient has no other orthopedic complaints at this time. Currently patient complains of no chest pain, shortness of breath, nausea or vomiting, lower extremity paresthesias, upper extremity paresthesias. Review of Systems Constitutional: Reports as per [facility] Past Medical History Past Medical History: Coronary Artery Disease (CAD), Hypertension, Thyroid Disorder Additional Past Medical History / Comment(s): vertigo Last Myocardial Infarction Date:: 2013 History of Any Multi-Drug Resistant Organisms: None Reported Past Surgical History: Hernia Repair, Pacemaker Additional Past Surgical History / Comment(s): Left lung removed Past Anesthesia/Blood Transfusion Reactions: No Reported Reaction Type of Cardiac Device: Unknown Device Placement Date:: June, Past Psychological History: No Psychological Hx Reported Smoking Status: Never smoker Past Alcohol Use History: None Reported Past Drug Use History: None Reported - Past Family History Father Family Medical History: Memory Impairment Additional Family Medical History / Comment(s): Father at age 71 from a myocardial infarction. Mother Family Medical History: No Reported History Additional Family Medical History / Comment(s): Mother at age 92 from old age. Brother(s) Additional Family Medical History / Comment(s): Patient has 3 brothers alive with no major medical problems. One brother is dying from stomach cancer. Sister(s) Additional Family Medical History / Comment(s): Patient has one sister and she is alive. History of hypertension and hyperlipidemia. Medications and Allergies Home Medications Medication Instructions Recorded Confirmed Type Atorvastatin [Lipitor] 80 mg PO HS 06/11/20 08/21/22 History Magnesium Oxide 400 mg PO DAILY PRN 12/23/20 08/21/22 History Metoprolol Succinate (ER) [Toprol 100 mg PO DAILY 12/23/20 08/21/22 History XL] Losartan [Cozaar] 50 mg PO DAILY 10/20/21 08/21/22 History Apixaban [Eliquis] 5 mg PO BID #60 tab 10/22/21 08/21/22 Rx Bumetanide [Bumex] 1 mg PO BID 08/21/22 08/21/22 History Empagliflozin [Jardiance] 10 mg PO DAILY 08/21/22 08/21/22 History Ipratropium-Albuterol Nebulize 3 ml INHALATION RT-QID PRN 08/21/22 08/21/22 History [Duoneb 0.5 mg-3 mg/3 ml Soln] Levothyroxine Sodium [Synthroid] 88 mcg PO DAILY 08/21/22 08/21/22 History traZODone HCL [Desyrel] 100 mg PO HS 08/21/22 08/21/22 History Allergies Allergy/AdvReac Type Severity Reaction Status Date / Time No Known Allergies Allergy Verified 08/21/22 13:33 Physical Examination Left lower extremity: There is mild ecchymosis and swelling present over the anterior lateral aspect of the upper thigh, there is no acute skin changes, this to include open lesions, ecchymosis or erythema There is an obvious hematoma present to the anterior lateral aspect of the lower leg just distal to the knee. I would say it measures about 3" x 3". There is erythematous and ecchymosis noted on the borders, the skin is very taut in this region. There is no active drainage visualized. There is erythema and generalized edema in the distal extremity when compared to the contralateral side No symptoms continue tenderness with palpation appreciated around the knee, foot or ankle. He is tender with palpation to the anterior lateral thigh. Logroll maneuver reproduces no groin pain, he has negative straight leg raise. Knee extension and flexion are intact, plantar flexion, dorsiflexion, EHL, FHL are intact Calf is soft, no tenderness with palpation Dorsalis pedis pulses 2+ Results - Labs Labs: Abnormal Lab Results - Last 24 Hours (Table) 08/21/22 08/21/22 Range/Units 15:30 15:30 WBC 20.3 H (3.8-10.6) k/uL Hgb 10.3 L (13.0-17.5) gm/dL Hct 33.6 L (39.0-53.0) % MCV 71.5 L D (80.0-100.0) fL MCH 21.9 L (25.0-35.0) pg MCHC 30.6 L (31.0-37.0) g/dL Neutrophils # (Manual) 15.63 H (1.3-7.7) k/uL Monocytes # (Manual) 2.84 H (0-1.0) k/uL BUN 39 H (9-20) mg/dL Creatinine 1.42 H (0.66-1.25) mg/dL Calcium 7.8 L (8.4-10.2) mg/dL Total Bilirubin 1.8 H (0.2-1.3) mg/dL H & H 08/21/22 Range/Units 15:30 Hgb 10.3 L (13.0-17.5) gm/dL Hct 33.6 L (39.0-53.0) % Result Diagrams: 08/21/22 15:30 08/21/22 15:30 - Diagnostic results Hip x-ray: report reviewed, image reviewed (Pelvis and left hip x-rays were reviewed. Mild osteoarthritic changes noted in the bilateral hips. No acute fractures or dislocations) Knee x-ray: report reviewed, image reviewed (Images reviewed of the tibia/fibula on the left lower extremity, mild osteophytic changes noted in the right knee. No acute fractures or dislocations are appreciated.) Assessment and Plan Assessment: Left anterior/lateral thigh hematoma Left anterior/lateral lower leg hematoma Status post recent fall Left lower extremity cellulitis Leukocytosis Other medical comorbidities Plan: I was able to discuss the case, this including both physical exam findings and imaging studies and my attending Dr. Schultz. We are recommending surgery at this time, more specifically an incision and drainage with irrigation and debridement of the hematoma involving the left lower extremity. Risk and benefits of the procedure were discussed with the patient at bedside today, this to include but not exclusive blood loss, neurovascular injury, infection, development of blood clots, and adequate healing of tissues, possible need for further surgery. Patient is a good understanding and would like to proceed. Surgery will be scheduled for 08/22/2022 Nothing by mouth after midnight Pain control, Tylenol versus low-dose narcotics DVT prophylaxis, plan to resume oral anticoagulant after surgery Medical recommendations Further recommendations to follow Time with Patient: Less than 30
[2022-08-21] MEDS: BUMETANIDE 1 MG TAB PO SCH (20:07)
[2022-08-21] MEDS: ATORVASTATIN 80 MG TAB PO SCH (20:28)
[2022-08-21] MEDS: METOPROLOL SUCCINATE (ER) 100 MG TAB.ER.24H PO SCH (20:28)
[2022-08-21] MEDS: traZODone HCL 100 MG TAB PO SCH (20:28)
[2022-08-22] MEDS: HYDROmorphone 0.5 MG/0.5 ML SYRINGE IVP PRN ×3 (01:06→20:03)
[2022-08-22] MEDS: LEVOTHYROXINE 88 MCG TAB PO SCH (05:30)
[2022-08-22 07:57] LABS: Partial Thromboplastin Time 24.7 sec (22.0-30.0); Prothrombin Time 10.7 sec (9.0-12.0)
[2022-08-22] MEDS: DAPAGLIFLOZIN PROPANEDIOL 5 MG TABLET PO SCH (09:40)
[2022-08-22] MEDS: METOPROLOL SUCCINATE (ER) 100 MG TAB.ER.24H PO SCH (09:40)
[2022-08-22] MEDS: BUMETANIDE 1 MG TAB PO SCH ×2 (09:40→20:04)
[2022-08-22] MEDS: LOSARTAN 50 MG TAB PO SCH (09:40)
[2022-08-22 11:05] LABS: Glucose,Whole Blood 232 mg/dL (70-110)
[2022-08-22] MEDS ORDERED: ONDANSETRON 4 MG/2 ML VIAL IVP ONE (11:08)
[2022-08-22] MEDS ORDERED: INSULIN ASPART (NovoLOG) 100 UNIT/ML VIAL SQ ONE (11:08)
[2022-08-22 12:06] LABS: African American GFR (CKD) 74.1 (60.0-200.0); Albumin 3.6 g/dL (3.8-4.9); Albumin/Globulin Ratio 1.71 (1.60-3.17); Anion Gap 8.2 mmol/L (10.00-18.00); BUN/Creat Ratio 24.82 Ratio (12.00-20.00); Blood Urea Nitrogen 27.3 mg/dL (9.0-27.0); Calcium 7.5 mg/dL (8.7-10.3); Carbon Dioxide 26.8 mmol/L (20.0-27.5); Globulin 2.1 g/dL (1.6-3.3); Potassium 4.1 mmol/L (3.5-5.5); Total Bilirubin 1.5 mg/dL (0.30-1.20); Total Protein 5.7 g/dL (6.2-8.2)
--- NOTE | 2022-08-22 12:13 | P.HPIM ---
History of Present Illness H&P Date: 08/22/22 HISTORY OF PRESENT ILLNESS: This is a 77-year-old male patient of mine with past medical history of non-small cell lung cancer diagnosed in 2009 status post lobectomy, remote history of tobacco use, remote history of alcohol abuse, alcoholic peripheral neuropathy, hypertension, coronary artery disease, paroxysmal atrial fibrillation, hypothyroidism, patient was getting out of his urologist office after a biopsy done with Dr. Avery last Wednesday and on his way down using his walker he fell down and he landed on his left lower extremity, patient got helped into the car and he went home and he did not have any contact with any physician he did not call my office he was supposed, seen in the office however he did not show up, patient sister brought him into the office yesterday with intractable pain and left hip as well as left lower extremity he did appear to have a significant swelling of the left hip area as well as significant hematoma to the left doherty, patient was not able to be ready within the left lower extremity EMS was called and the patient was transported to the emergency department at [facility] initial x-rays did not show evidence of acute fracture only soft tissue swelling he ended up going for a computed tomography scan of the hip that did show evidence of hematoma of the quadriceps muscles with soft tissue edema along with significant hematoma the left lower extremity without evidence of any fracture admitted show evidence of bilateral hip past arthritis, patient was started on IV pain management in the form of Dilaudid 0.5 mg 1 mg IV push every 3 hours as needed for pain control, orthopedic consultation was obtained for possible I&D of the hematoma the left lower extremity. REVIEW OF SYSTEMS: Constitutional: No documented fever, no chills, no night sweats. No weight change. No weakness, fatigue or lethargy. No daytime sleepiness. HEENT: No headache. No blurred vision or double vision, no loss of vision. very hard of Hearing, no ringing in the ears, no dizziness. No nasal drainage or congestion. No epistaxis. No sore throat. Lungs: No shortness of breath, no cough, no sputum production. no wheezing. Cardiovascular: No chest pain, positive for lower extremity edema. No palpitations. No paroxysmal nocturnal dyspnea. No orthopnea. No lightheadedness or dizziness. Reports syncopal episodes. Abdominal: Reports no abdominal pain. No nausea, vomiting. No diarrhea. No constipation. No bloody or tarry stools reports loss of appetite. Genitourinary: No dysuria, increased frequency, urgency. No urinary retention. Musculoskeletal: positive for myalgias. positive for right muscle weakness, positive for gait dysfunction, positive for frequent falls, positive for back pain and neck pain along with left hip and leg pain Integumentary: No wounds, no lesions. No rash or pruritus. positive for hematoma to the left leg with significant bruising Neurologic: No aphasia. No facial droop. No change in mentation. No head injury. No headache. No paralysis. No paresthesia. Psychiatric: positive for depression, positive for anxiety. No mood swings. Endocrine: No abnormal blood sugars. No weight change. PAST MEDICAL HISTORY: Hypertension Hyperlipidemia Supraventricular tachycardia Malignant neoplasm of the prostate Neoplasm of the left bronchus Paroxysmal atrial fibrillation on Coumadin Alcoholic peripheral neuropathy Sick sinus syndrome Hypothyroidism PAST SURGICAL HISTORY: Left and right groin hernia repair Lung left resection in 2008 Permanent pacemaker 07/28 SOCIAL HISTORY: Patient has history of smoking and quit 5-10 years ago. No current alcohol use, illicit drug use, marijuana use. Patient does have history of alcohol abuse in the past. FAMILY HISTORY: Father at age 71 from a myocardial infarction. Mother at age 92 from old age. Patient has 3 brothers and 2 brothers are living with no major medical problems, one brother from stomach cancer. Patient has one sister living with history of hypertension hyperlipidemia. PHYSICAL EXAMINATION: General: This is a 77-year-old male resting in bed in minima distress HEENT: Head is atraumatic, normocephalic, pupils were equal round reactive to light and recommendation, extraocular muscle movement were intact, sclera nonicteric, conjunctivae were pale, mucous membranes of the mouth are somewhat dry. Neck: Supple, no JVP, normal carotid upstroke bilaterally, no lymphadenopathy. Chest: Decreased breath sounds at the bases, no wheezes, no chest wall tenderness, no intercostal retractions. Heart: First heart sound is normal, second heart sounds normal, systolic ejection murmur 2/6 located at the left sternal border. Abdomen: Soft, nontender, nondistended, positive bowel sounds. Extremities: There is +2 edema no calf tenderness DP +1 bilaterally, there is edema to the left hip and significant tenderness and hematoma to the left leg with significant tenderness Neurologic examination: Patient is awake alert and oriented 3, cranial nerves II-12 appear grossly intact, muscle power were 4 out of 5 in upper extremities and 2 out of 5 in bilateral lower extremities, deep tendon reflexes normal bilaterally. ASSESSMENT AND PLAN: 1. Left lower extremity hematoma with significant contusion and quadriceps muscle hematoma. Rest, start the patient on Dilaudid 1 mg IV push every 3 hours as needed for pain control, orthopedic consultation appreciated for possible I&D of the left lower extremity hematoma per he 2. Left hip pain With significant soft tissue edema. Reviewed computed to mography scan of the hip as well as x-rays, showed evidence of mild ostial arthritis without evidence of acute fracture. Continue pain management, physical therapy ventilation. 3. Leukocytosis with microcytosis and from cytopenia rule out myeloproliferative disorder/myelodysplasia. Check iron, TIBC, ferritin, B12, folic acid, reticulocyte count, LDH, haptoglobin, free light chain protein in th e serum and urine [place] and Lambda , serum protein electrophoresis, hematology consultation. 4. History of non-small cell lung cancer in 2008 status post left pneumonectomy. 5. Hypertension and hypertensive cardiovascular disease . Continue losartan 50 mg daily, Toprol-XL 100 mg daily 6. Chronic diastolic heart failure. we will continue with Farxiga 10 mg po daily, Bumex 1 mg po bid and Metoprolol 100 mg po daily. 7. Paroxysmal atrial fibrillation. we will hold off Eliquis and we will continue with Metoprolol ER 100 mg po daily. 8. History of sick sinus syndrome status post pacemaker implantation, stable. 9. Alcoholic peripheral neuropathy. stable. 10. Hypothyroidism. Continue levothyroxine 88 g daily. 11. GI prophylaxis. Protonix 40 mg daily. 12. DVT prophylaxis. we will hold off Eliquis dueo hematoma and possible I&D 13. Admitted to inpatient. Estimate a length of stay 2 midnights. 14. Patient is full code. Patient admitted to the hospital for a minimum of 2 nights day. Past Medical History Past Medical History: Coronary Artery Disease (CAD), Hypertension, Thyroid Disorder Additional Past Medical History / Comment(s): vertigo Last Myocardial Infarction Date:: 2013 History of Any Multi-Drug Resistant Organisms: None Reported Past Surgical History: Hernia Repair, Pacemaker Additional Past Surgical History / Comment(s): Left lung removed Past Anesthesia/Blood Transfusion Reactions: No Reported Reaction Type of Cardiac Device: Unknown Device Placement Date:: June, Past Psychological History: No Psychological Hx Reported Additional Psychological History / Comment(s): Pt resides alone in an apartment. He is independent. Smoking Status: Never smoker Past Alcohol Use History: None Reported Additional Past Alcohol Use History / Comment(s): Pt started smoking in 8 and quit in 2008. Pt was a heavy drinker/quit in 2008 Past Drug Use History: None Reported - Past Family History Father Family Medical History: Memory Impairment Additional Family Medical History / Comment(s): Father at age 71 from a myocardial infarction. Mother Family Medical History: No Reported History Additional Family Medical History / Comment(s): Mother at age 92 from old age. Brother(s) Additional Family Medical History / Comment(s): Patient has 3 brothers alive with no major medical problems. One brother is dying from stomach cancer. Sister(s) Additional Family Medical History / Comment(s): Patient has one sister and she is alive. History of hypertension and hyperlipidemia. Medications and Allergies Home Medications Medication Instructions Recorded Confirmed Type Atorvastatin [Lipitor] 80 mg PO HS 06/11/20 08/21/22 History Magnesium Oxide 400 mg PO DAILY PRN 12/23/20 08/21/22 History Metoprolol Succinate (ER) [Toprol 100 mg PO DAILY 12/23/20 08/21/22 History XL] Losartan [Cozaar] 50 mg PO DAILY 10/20/21 08/21/22 History Apixaban [Eliquis] 5 mg PO BID #60 tab 10/22/21 08/21/22 Rx Bumetanide [Bumex] 1 mg PO BID 08/21/22 08/21/22 History Empagliflozin [Jardiance] 10 mg PO DAILY 08/21/22 08/21/22 History Ipratropium-Albuterol Nebulize 3 ml INHALATION RT-QID PRN 08/21/22 08/21/22 History [Duoneb 0.5 mg-3 mg/3 ml Soln] Levothyroxine Sodium [Synthroid] 88 mcg PO DAILY 08/21/22 08/21/22 History traZODone HCL [Desyrel] 100 mg PO HS 08/21/22 08/21/22 History Allergies Allergy/AdvReac Type Severity Reaction Status Date / Time No Known Allergies Allergy Verified 08/21/22 13:33 Physical Exam Vitals: Vital Signs Temp Pulse Pulse Resp BP BP BP 08/22/22 11:05 66 18 129/67 08/22/22 07:00 97.7 F 66 16 130/72 08/22/22 00:41 98.1 F 67 19 109/54 08/21/22 20:09 98.5 F 71 17 118/60 08/21/22 20:00 18 08/21/22 18:18 66 18 123/75 08/21/22 15:28 98.7 F 75 136/77 Pulse Ox 08/22/22 11:05 96 08/22/22 07:00 99 08/22/22 00:41 97 08/21/22 20:09 96 08/21/22 20:00 08/21/22 18:18 97 08/21/22 15:28 97 Intake and Output 08/21/22 08/22/22 08/22/22 22:59 06:59 14:59 Intake Total 250 Output Total 425 Balance 250 -425 Intake: Oral 250 Output: Urine 425 Other: Voiding Method Urinal Weight 69.4 kg Results CBC & Chem 7: 08/21/22 15:30 08/22/22 07:08 Labs: Abnormal Lab Results - Last 24 Hours (Table) 08/21/22 08/21/22 08/22/22 Range/Units 15:30 15:30 11:03 WBC 20.3 H (3.8-10.6) k/uL Hgb 10.3 L (13.0-17.5) gm/dL Hct 33.6 L (39.0-53.0) % MCV 71.5 L D (80.0-100.0) fL MCH 21.9 L (25.0-35.0) pg MCHC 30.6 L (31.0-37.0) g/dL Neutrophils # (Manual) 15.63 H (1.3-7.7) k/uL Monocytes # (Manual) 2.84 H (0-1.0) k/uL BUN 39 H (9-20) mg/dL Creatinine 1.42 H (0.66-1.25) mg/dL POC Glucose (mg/dL) 232 H (70-110) mg/dL Calcium 7.8 L (8.4-10.2) mg/dL Total Bilirubin 1.8 H (0.2-1.3) mg/dL
[2022-08-22] MEDS ORDERED: LACTATED RINGERS 1,000 ML IV ONE (12:26)
[2022-08-22] MEDS ORDERED: fentaNYL (PF) 50 MCG/ML 2 ML AMP ONE (12:26)
[2022-08-22] MEDS ORDERED: PROPOFOL 10 MG/ML 20 ML VIAL IV ONE (12:26)
[2022-08-22] MEDS ORDERED: PEGFILGRASTIM 6 MG/0.6 ML SYRINGE (ONPRO) SQ ONE (12:26)
[2022-08-22] MEDS ORDERED: SUCCINYLCHOLINE CHLORIDE 200 MG/10 ML VIAL IV ONE (12:26)
[2022-08-22] MEDS ORDERED: SODIUM CHLORIDE 0.9% 100 ML with ceFAZolin 2,000 MG IV ONE ×2 (12:35)
[2022-08-22] MEDS ORDERED: ceFAZolin 1,000 MG in SODIUM CHLORIDE 0.9% 1,000 ML IRRIGATION ONE (12:39)
[2022-08-22 12:51] LABS: Acanthocytes 2+; Basophils # (M) 0.23 X 10*3/uL (0.00-0.10); Eosinophils # (M) 0 X 10*3/uL (0.04-0.35); HCT 29.6 % (39.6-50.0); HGB 8.5 g/dL (13.0-17.0); MCHC 28.7 g/dL (32.0-37.0); MCV 73.1 fL (80.0-97.0); Mean Platelet Volume 12.1 fL (9.5-12.2); Microcytosis (M) 2+; Monocytes # (M) 3.72 X 10*3/uL (0.20-1.00); NRBC Per 100 WBC 0 /100 WBCS (0.0-0.0); Neutrophils # (M) 18.61 X 10*3/uL (2.00-8.90); Neutrophils % (M) 80 %; Platelet Count 231 X 10*3/uL (140-440); RBC 4.05 X 10*6/uL (4.40-5.60); RDW 16.1 % (11.5-14.5); WBC 23.26 X 10*3/uL (4.50-10.00)
--- NOTE | 2022-08-22 12:54 | P.OP ---
Date of Procedure: 08/22/22 Preoperative Diagnosis: Left anterior lateral leg hematoma Postoperative Diagnosis: Left anterior lateral leg hematoma measuring approximately 10 cm x 6 cm and raised approximately 3 cm Procedure(s) Performed: Incision with evacuation hematoma left leg Anesthesia: ANASTASIA Surgeon: Derrek Schultz Stock Crane Operator #1: Delmar Tavera Estimated Blood Loss (ml): 5 Pathology: none sent Condition: stable Disposition: PACU Indications for Procedure: 77-year-old gentleman who was seen with a large hematoma involving the anterolateral aspect of the left leg. We discussed incision with evacuation of this large hematoma. Patient was agreeable and consent was obtained. Operative Findings: See description of procedure Description of Procedure: Patient was taken to the operative suite. He received preoperative IV antibiotics. He underwent a general anesthetic by the department of anesthesia. The left leg was prepped and draped in the normal sterile orthopedic fashion. The hematoma measured approximately 10 cm in length, 6 cm in width was raised approximately 3 cm. I made a central incision over the hematoma measuring approximately 6 cm sharply through skin. 1. Treated subcu soft tissues are not ed a large hematoma. This hematoma was matured was evacuated without difficulty. The wound was irrigated copiously with antibiotic irrigant solution. I explored the wound. The fascia was intact. There was no evidence for any necrotic tissue. The subcu soft tissues were repaired down to the fascia utilizing 2-0 Vicryl in simple interrupted suture fashion. The skin was approximated with 3-0 nylon suture. Sterile dressings were applied followed by a compressive Rosales bandage. The patient was now awakened, transferred to a bed and recovery in stable condition. Philip ACEVEDO assisted in all aspects this procedure.
[2022-08-22 13:18] LABS: Glucose,Whole Blood 102 mg/dL (70-110)
[2022-08-22] MEDS ORDERED: HYDROmorphone 0.5 MG/0.5 ML SYRINGE IVP ONE (13:20)
[2022-08-22] MEDS: ATORVASTATIN 80 MG TAB PO SCH (20:03)
[2022-08-22] MEDS: traZODone HCL 100 MG TAB PO SCH (20:04)
[2022-08-23] MEDS ORDERED: SODIUM CHLORIDE 0.9% 2,000 ML IV ONE (01:29)
[2022-08-23] MEDS ORDERED: NOREPINEPHRIN 4 MG-0.9% NS PMX 4 MG/250 ML ML IV ONE (02:10)
[2022-08-23 02:22] LABS: Glucose,Whole Blood 103 mg/dL (70-110)
[2022-08-23] MEDS ORDERED: NALOXONE 0.4 MG/ML 1 ML VIAL IV PRN (02:28)
[2022-08-23] MEDS: ACETAMINOPHEN TAB 500 MG TAB PO PRN ×3 (02:57→16:55)
[2022-08-23 03:02] LABS: Hypochromasia Marked; MCH 22.4 pg (25.0-35.0); MCHC 29.8 g/dL (31.0-37.0); MCV 75.1 fL (80.0-100.0); Mean Platelet Volume 10.2; Microcytosis Slight; Platelet Count 142 k/uL (150-450); RBC 3.06 m/uL (4.30-5.90); RDW 15.1 % (11.5-15.5); WBC 48.6 k/uL (3.8-10.6)
[2022-08-23 03:02] LABS: Potassium 4.2 mmol/L (3.5-5.1)
[2022-08-23 03:03] LABS: African American GFR (CKD) 56 (>60 ml/min/1.73 sqM); Anion Gap 14 mmol/L; Blood Urea Nitrogen 26 mg/dL (9-20); Calcium 6.5 mg/dL (8.4-10.2); Carbon Dioxide 15 mmol/L (22-30); Chloride 108 mmol/L (98-107); Glucose 91 mg/dL (74-99); Magnesium 1.5 mg/dL (1.6-2.3); Non-African American GFR(CKD) 49 (>60 ml/min/1.73 sqM); Sodium 137 mmol/L (137-145)
[2022-08-23 03:11] LABS: HGB 6.8 gm/dL (13.0-17.5)
[2022-08-23 04:08] LABS: Band Neutrophils % 7 %; Lymphocytes # (M) 1.46 k/uL (1.0-4.8); Monocytes # (M) 8.26 k/uL (0-1.0); Neutrophils % (M) 73 %; Nucleated Red Blood Cells 0 /100 WBC (0-0); Total Cells Counted 100
[2022-08-23 04:09] LABS: RBC Fragments Present
[2022-08-23 04:10] LABS: Anisocytosis (M) Present; Poikilocytosis (M) Present
[2022-08-23] MEDS: NOREPINEPHRINE 4 MG in SODIUM CHLORIDE 0.9% 250 ML IV SCH ×3 (06:20→21:23)
[2022-08-23] MEDS: LEVOTHYROXINE 88 MCG TAB PO SCH (07:06)
[2022-08-23] MEDS: LOSARTAN 50 MG TAB PO SCH (08:41)
[2022-08-23] MEDS: METOPROLOL SUCCINATE (ER) 100 MG TAB.ER.24H PO SCH (08:41)
--- NOTE | 2022-08-23 09:40 | P.CONS ---
History of Present Illness - Reason for Consult Consult date: 08/22/22 possible MDS Requesting physician: Nat Oglesby - Chief Complaint hip pain, fall - History of Present Illness Patient is a 77-year-old male patient with past medical history of a- fib on eliquis, non-small cell lung cancer diagnosed in 2008 status post lobectomy and prostate cancer. He has had f/u in the past with Dr. Prieto but was lost to f/u in 2013. We consulted to r/o possible MDS r/t leukocytosis and cytopenia. He follows with Dr. Whipple for hx of prostate cancer. Per pt he only receives monitoring but no active treatment, sister who is DPOA states he did not want any treatment for the prostate cancer. He had a prostate biopsy with Dr. Whipple approx 10 days where patient has a fall landing on his LLE. Pt was sent to the ER by his PCP due to persisting LLE pain and left pain. X-ray and CT scan obtained of LLE and left hip revealed no acute fracture. Pt was seen by orthopedic surgery and is s/p evacuation of LLE hematoma. Upon visit today patient is c/o of LLE pain. He is lethargic and is falling asleep during visit, but is arousable to verbal stimuli and is answering questions appropriately. He denies any recent illness, cough, chest pain, SOB, abdominal pain, n/v/d, and fever and chills. 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 He was found to have PSA of 4.[address] Oglesby, refered to Urology, but pt declined at that time. Last CT chest in our office was 08/2013, showed MARIO. Pt was subsequently lost to f/u in 2013 Review of Systems 10 point ROS is negative except as stated in the HPI Past Medical History Past Medical History: Coronary Artery Disease (CAD), Hypertension, Thyroid Disorder Additional Past Medical History / Comment(s): vertigo Last Myocardial Infarction Date:: 2013 History of Any Multi-Drug Resistant Organisms: None Reported Past Surgical History: Hernia Repair, Pacemaker Additional Past Surgical History / Comment(s): Left lung removed Past Anesthesia/Blood Transfusion Reactions: No Reported Reaction Type of Cardiac Device: Unknown Device Placement Date:: June, Past Psychological History: No Psychological Hx Reported Additional Psychological History / Comment(s): Pt resides alone in an apartment. He is independent. Smoking Status: Never smoker Past Alcohol Use History: None Reported Additional Past Alcohol Use History / Comment(s): Pt started smoking in 8 and quit in 2008. Pt was a heavy drinker/quit in 2008 Past Drug Use History: None Reported - Past Family History Father Family Medical History: Memory Impairment Additional Family Medical History / Comment(s): Father at age 71 from a myocardial infarction. Mother Family Medical History: No Reported History Additional Family Medical History / Comment(s): Mother at age 92 from old age. Brother(s) Additional Family Medical History / Comment(s): Patient has 3 brothers alive with no major medical problems. One brother is dying from stomach cancer. Sister(s) Additional Family Medical History / Comment(s): Patient has one sister and she is alive. History of hypertension and hyperlipidemia. Medications and Allergies Home Medications Medication Instructions Recorded Confirmed Type Atorvastatin [Lipitor] 80 mg PO HS 06/11/20 08/21/22 History Magnesium Oxide 400 mg PO DAILY PRN 12/23/20 08/21/22 History Metoprolol Succinate (ER) [Toprol 100 mg PO DAILY 12/23/20 08/21/22 History XL] Losartan [Cozaar] 50 mg PO DAILY 10/20/21 08/21/22 History Apixaban [Eliquis] 5 mg PO BID #60 tab 10/22/21 08/21/22 Rx Bumetanide [Bumex] 1 mg PO BID 08/21/22 08/21/22 History Empagliflozin [Jardiance] 10 mg PO DAILY 08/21/22 08/21/22 History Ipratropium-Albuterol Nebulize 3 ml INHALATION RT-QID PRN 08/21/22 08/21/22 History [Duoneb 0.5 mg-3 mg/3 ml Soln] Levothyroxine Sodium [Synthroid] 88 mcg PO DAILY 08/21/22 08/21/22 History traZODone HCL [Desyrel] 100 mg PO HS 08/21/22 08/21/22 History Allergies Allergy/AdvReac Type Severity Reaction Status Date / Time No Known Allergies Allergy Verified 08/21/22 13:33 Physical Exam Vitals: Vital Signs Temp Pulse Pulse Resp BP BP BP 08/22/22 13:05 61 16 97/47 08/22/22 11:05 66 18 129/67 08/22/22 07:00 97.7 F 66 16 130/72 08/22/22 00:41 98.1 F 67 19 109/54 08/21/22 20:09 98.5 F 71 17 118/60 08/21/22 20:00 18 08/21/22 18:18 66 18 123/75 08/21/22 15:28 98.7 F 75 136/77 Pulse Ox 08/22/22 13:05 92 L 08/22/22 11:05 96 08/22/22 07:00 99 08/22/22 00:41 97 08/21/22 20:09 96 08/21/22 20:00 08/21/22 18:18 97 08/21/22 15:28 97 Intake and Output 08/21/22 08/22/22 08/22/22 22:59 06:59 14:59 Intake Total 250 201 Output Total 425 5 Balance 250 -425 196 Intake: IV 201 Oral 250 Output: Urine 425 Estimated Blood Loss 5 Other: Voiding Method Urinal Weight 69.4 kg - Constitutional General appearance: average body habitus, no acute distress - EENT Eyes: anicteric sclerae, EOMI ENT: hearing grossly normal - Respiratory Respiratory: bilateral: CTA - Cardiovascular Rhythm: regular Heart sounds: normal: S1, S2 Abnormal Heart Sounds: no systolic murmur, no diastolic murmur, no rub, no S3 Gallop, no S4 Gallop, no click, no other - Gastrointestinal General gastrointestinal: soft, no tenderness - Integumentary Integumentary: pale - Neurologic grossly intact, lethargic - Musculoskeletal LLE hematoma, on left lower lateral aspect, bandage in place - Psychiatric Psychiatric: A&O x's 3 Results CBC & Chem 7: 08/23/22 01:53 08/23/22 01:46 Labs: Abnormal Lab Results - Last 24 Hours (Table) 08/21/22 08/21/22 08/22/22 Range/Units 15:30 15:30 07:08 WBC 20.3 H 23.26 H (3.8-10.6) k/uL RBC 4.05 L (4.40-5.60) X 10*6/uL Hgb 10.3 L 8.5 L (13.0-17.5) gm/dL Hct 33.6 L 29.6 L (39.0-53.0) % MCV 71.5 L D 73.1 L (80.0-100.0) fL MCH 21.9 L 21.0 L (25.0-35.0) pg MCHC 30.6 L 28.7 L (31.0-37.0) g/dL RDW 16.1 H (11.5-14.5) % Neutrophils # (Manual) 15.63 H 18.61 H (1.3-7.7) k/uL Lymphocytes # (Manual) 0.70 L (0.90-5.00) X 10*3/uL Monocytes # (Manual) 2.84 H 3.72 H (0-1.0) k/uL Eosinophils # (Manual) 0 L (0.04-0.35) X 10*3/uL Basophils # (Manual) 0.23 H (0.00-0.10) X 10*3/uL Anion Gap (10.00-18.00) mmol/L BUN 39 H (9-20) mg/dL Creatinine 1.42 H (0.66-1.25) mg/dL BUN/Creatinine Ratio (12.00-20.00) Ratio POC Glucose (mg/dL) (70-110) mg/dL Calcium 7.8 L (8.4-10.2) mg/dL Total Bilirubin 1.8 H (0.2-1.3) mg/dL Total Protein (6.2-8.2) g/dL Albumin (3.8-4.9) g/dL 08/22/22 08/22/22 Range/Units 07:08 11:03 WBC (3.8-10.6) k/uL RBC (4.40-5.60) X 10*6/uL Hgb (13.0-17.5) gm/dL Hct (39.0-53.0) % MCV (80.0-100.0) fL MCH (25.0-35.0) pg MCHC (31.0-37.0) g/dL RDW (11.5-14.5) % Neutrophils # (Manual) (1.3-7.7) k/uL Lymphocytes # (Manual) (0.90-5.00) X 10*3/uL Monocytes # (Manual) (0-1.0) k/uL Eosinophils # (Manual) (0.04-0.35) X 10*3/uL Basophils # (Manual) (0.00-0.10) X 10*3/uL Anion Gap 8.20 L (10.00-18.00) mmol/L BUN 27.3 H (9-20) mg/dL Creatinine (0.66-1.25) mg/dL BUN/Creatinine Ratio 24.82 H (12.00-20.00) Ratio POC Glucose (mg/dL) 232 H (70-110) mg/dL Calcium 7.5 L (8.4-10.2) mg/dL Total Bilirubin 1.50 H (0.2-1.3) mg/dL Total Protein 5.7 L (6.2-8.2) g/dL Albumin 3.6 L (3.8-4.9) g/dL Comments: reviewed CT scan of hip, xray of tib/fib/hip Assessment and Plan (1) Leukocytosis Current Visit: Yes Status: Acute Priority: High Code(s): D72.829 - EL EVATED WHITE BLOOD CELL COUNT, UNSPECIFIED SNOMED Code(s): 277905621 (2) Anemia Current Visit: Yes Status: Acute Priority: High Code(s): D64.9 - ANEMIA, UNSPECIFIED SNOMED Code(s): 025757123 Plan: Anemia: -Hemoglobin 8.5, hematocrit 29.6. Plts 231,000 -Anemia workup ordered -Anemia likely related to LLE hematoma and recent evacuation. Will continue to monitor counts. CBC daily -Please transfuse for hemoglobin less than 7 or if symptomatic Leukoctyosis/cytopenia: -Consulted to r/o underlying MDS. WBC 23.26, ANC 18.6, lymphocytes 0.70, and eosinophils 0.0 -Monoclonal gammopathy workup started by IM. Serum immunofixation added. Work up pending -Blood counts again likely reactive related to acute inflammatory process and blood loss from hematoma. -Further workup will be pursued, as warranted by pending labs
[2022-08-23] MEDS: PIPERACILLIN-TAZOBACTAM 3.375 GM in SODIUM CHLORIDE 0.9% 100 ML IVPB SCH ×3 (10:05→23:28)
[2022-08-23] MEDS: DAPAGLIFLOZIN PROPANEDIOL 5 MG TABLET PO SCH (10:06)
--- NOTE | 2022-08-23 10:26 | P.CRDCN ---
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 He follows in the office with Dr. Pinon. Patient had a fall approximately 10 days ago and fell on his left side. Since that time he has had increased swelling of his left lower extremity. He presented to the hospital with swelling and pain in his left lower extremity. Patient was found to have significant hematoma and therefore had surgery with washout of the left doherty. He still does have some swelling of the left thigh. After procedure he was extremely hypotensive blood pressures recorded in the 50s to 60s systolic and admits to feeling confused and chest pain and short of breath. Hemoglobin decreased to 6.9 and he was given 2 units packed red blood cells. He additionally has been placed on norepinephrine with improvement in blood pressure and improvement in symptoms. He denies any history of CAD. He denies any further chest pain. He is atrial paced on telemetry. REVIEW OF SYSTEMS At the time of my exam: CONSTITUTIONAL: Denies fever or chills. CARDIOVASCULAR: +chest pain, +shortness of breath, no orthopnea, PND or palpitations. RESPIRATORY: Denies cough. GASTROINTESTINAL: Denies abdominal pain, diarrhea, constipation, nausea or vomiting. MUSCULOSKELETAL: Denies myalgias. NEUROLOGIC: Denies numbness, tingling, headache or weakness. ENDOCRINE: Denies fatigue, weight change, polydipsia or polyurina. GENITOURINARY: Denies burning, hematuria or urgency with micturation. HEMATOLOGIC: Denies history of anemia or bleeding. PHYSICAL EXAMINATION Vitals reviewed CONSTITUTIONAL: No apparent distress. HEENT: Head is normocephalic. Pupils are equal, round. Sclerae anicteric. Mucous membranes of the mouth are moist. No JVD. No carotid bruit. CHEST EXAMINATION: Lungs are clear to auscultation. No chest wall tenderness is noted on palpation or with deep breathing. HEART EXAMINATION: Regular rate and rhythm. S1, S2 heard. Systolic ejection murmur at apex, no gallops or rub. ABDOMEN: Soft, nontender. Positive bowel sounds. EXTREMITIES: 2+ peripheral pulses, no lower extremity edema and no calf tenderness. SKIN: Warm, dry NEUROLOGIC EXAMINATION: Patient is awake, alert and oriented x3. ASSESSMENT Chest pain during hypotensive episode appears related to severe hypotension SBP 50-60's Hypotension postoperatively, possible acute blood loss anemia, medication effect with pain meds given versus other Left doherty hematoma status post evacuation. 08/22 History of tachy-arabella syndrome and syncope status post pacemaker implantation in 07/2020 Paroxysmal atrial fibrillation on Eliquis currently normal sinus rhythm History of hypertension Dyslipidemia Former tobacco use Former alcohol use Non-small cell lung cancer in 2008 status post left pneumonectomy History of hypothyroidism Acute blood loss anemia PLAN Obtain repeat troponin for completeness sake. Chest pain mainly appears related to severe hypotensive episode and possible blood loss anemia. Patient has received 2 units packed red blood cells with some improvement in blood pressure. Continue to hold antihypertensive medications. Check 2-D echo. Continue to hold anticoagulation at this time. Continue supportive care. Further recommendations to follow. Past Medical History Past Medical History: Coronary Artery Disease (CAD), Hypertension, Thyroid Disorder Additional Past Medical History / Comment(s): vertigo Last Myocardial Infarction Date:: 2013 History of Any Multi-Drug Resistant Organisms: None Reported Past Surgical History: Hernia Repair, Pacemaker Additional Past Surgical History / Comment(s): Left lung removed Past Anesthesia/Blood Transfusion Reactions: No Reported Reaction Type of Cardiac Device: Unknown Device Placement Date:: June, Past Psychological History: No Psychological Hx Reported Additional Psychological History / Comment(s): Pt resides alone in an apartment. He is independent. Smoking Status: Never smoker Past Alcohol Use History: None Reported Additional Past Alcohol Use History / Comment(s): Pt started smoking in 1959 and quit in 2008. Pt was a heavy drinker/quit in 2008 Past Drug Use History: None Reported - Past Family History Father Family Medical History: Memory Impairment Additional Family Medical History / Comment(s): Father at age 71 from a myocardial infarction. Mother Family Medical History: No Reported History Additional Family Medical History / Comment(s): Mother at age 92 from old age. Brother(s) Additional Family Medical History / Comment(s): Patient has 3 brothers alive with no major medical problems. One brother is dying from stomach cancer. Sister(s) Additional Family Medical History / Comment(s): Patient has one sister and she is alive. History of hypertension and hyperlipidemia. Medications and Allergies Home Medications Medication Instructions Recorded Confirmed Type Atorvastatin [Lipitor] 80 mg PO HS 06/11/20 08/21/22 History Magnesium Oxide 400 mg PO DAILY PRN 12/23/20 08/21/22 History Metoprolol Succinate (ER) [Toprol 100 mg PO DAILY 12/23/20 08/21/22 History XL] Losartan [Cozaar] 50 mg PO DAILY 10/20/21 08/21/22 History Apixaban [Eliquis] 5 mg PO BID #60 tab 10/22/21 08/21/22 Rx Bumetanide [Bumex] 1 mg PO BID 08/21/22 08/21/22 History Empagliflozin [Jardiance] 10 mg PO DAILY 08/21/22 08/21/22 History Ipratropium-Albuterol Nebulize 3 ml INHALATION RT-QID PRN 08/21/22 08/21/22 History [Duoneb 0.5 mg-3 mg/3 ml Soln] Levothyroxine Sodium [Synthroid] 88 mcg PO DAILY 08/21/22 08/21/22 History traZODone HCL [Desyrel] 100 mg PO HS 08/21/22 08/21/22 History Allergies Allergy/AdvReac Type Severity Reaction Status Date / Time No Known Allergies Allergy Verified 08/21/22 13:33 Physical Exam Vitals: Vital Signs Temp Pulse Pulse Resp BP BP BP 08/23/22 10:00 98 F 60 17 86/53 08/23/22 09:50 60 18 86/53 08/23/22 09:40 61 19 83/44 08/23/22 09:30 59 L 16 86/47 08/23/22 09:20 65 18 86/47 08/23/22 09:10 67 17 83/51 08/23/22 09:00 60 17 90/45 08/23/22 08:50 19 08/23/22 08:40 68 24 117/50 08/23/22 08:30 73 18 105/47 08/23/22 08:20 97.9 F 72 20 105/47 08/23/22 08:10 70 20 102/54 08/23/22 08:00 98 F 75 22 08/23/22 07:50 98.1 F 68 20 93/47 08/23/22 07:40 59 L 11 L 08/23/22 07:30 59 L 18 92/46 08/23/22 07:14 99.6 F 62 17 92/46 08/23/22 07:00 63 15 92/43 08/23/22 06:50 59 L 13 92/43 08/23/22 06:40 62 18 91/42 08/23/22 06:30 60 17 92/44 08/23/22 06:20 11 L 92/44 08/23/22 06:10 60 15 107/86 08/23/22 06:00 66 26 H 87/42 08/23/22 05:50 67 16 87/42 08/23/22 05:43 98.4 F 60 12 87/43 08/23/22 05:40 61 14 87/43 08/23/22 05:30 60 21 90/41 08/23/22 05:23 98.0 F 60 19 90/41 08/23/22 05:20 60 13 90/41 08/23/22 05:14 98.1 F 61 17 74/34 08/23/22 05:10 62 16 74/34 08/23/22 05:00 59 L 13 94/45 08/23/22 04:50 61 13 94/45 08/23/22 04:40 60 10 L 71/34 08/23/22 04:30 60 10 L 79/39 08/23/22 04:20 60 11 L 79/39 08/23/22 04:10 60 15 86/36 08/23/22 04:00 61 15 93/38 08/23/22 03:50 83 12 93/38 08/23/22 03:40 74 17 98/47 08/23/22 03:30 80 15 82/66 08/23/22 03:20 81 13 82/66 08/23/22 03:10 86 15 85/39 08/23/22 03:00 64 13 75/35 08/23/22 02:50 81 19 75/35 08/23/22 02:40 63 14 76/37 08/23/22 02:30 71 13 85/46 08/23/22 02:20 82 16 08/23/22 02:19 84 17 08/23/22 01:55 64 16 71/32 08/23/22 01:45 63 16 70/33 08/23/22 01:30 63 16 63/42 08/23/22 01:20 62 16 51/35 08/23/22 01:10 62 16 52/30 08/23/22 01:00 97.8 F 60 16 50/20 08/22/22 20:00 99 16 08/22/22 19:16 98.3 F 93 16 99/63 08/22/22 16:57 99 115/71 08/22/22 15:57 88 119/54 08/22/22 15:26 62 113/61 08/22/22 14:58 70 128/51 08/22/22 14:44 61 124/52 08/22/22 14:28 65 122/56 08/22/22 14:21 97.6 F 72 16 127/70 08/22/22 14:13 60 116/51 08/22/22 13:50 60 16 113/55 08/22/22 13:35 60 16 119/55 08/22/22 13:20 60 16 101/56 08/22/22 13:05 61 16 97/47 08/22/22 11:05 66 18 129/67 Pulse Ox 08/23/22 10:00 95 08/23/22 09:50 95 08/23/22 09:40 95 08/23/22 09:30 96 08/23/22 09:20 94 L 08/23/22 09:10 97 08/23/22 09:00 96 08/23/22 08:50 94 L 08/23/22 08:40 95 08/23/22 08:30 94 L 08/23/22 08:20 94 L 08/23/22 08:10 93 L 08/23/22 08:00 94 L 08/23/22 07:50 93 L 08/23/22 07:40 94 L 08/23/22 07:30 97 08/23/22 07:14 97 08/23/22 07:00 98 08/23/22 06:50 97 08/23/22 06:40 97 08/23/22 06:30 97 08/23/22 06:20 98 08/23/22 06:10 97 08/23/22 06:00 97 08/23/22 05:50 98 08/23/22 05:43 98 08/23/22 05:40 98 08/23/22 05:30 97 08/23/22 05:23 97 08/23/22 05:20 97 08/23/22 05:14 08/23/22 05:10 98 08/23/22 05:00 98 08/23/22 04:50 98 08/23/22 04:40 98 08/23/22 04:30 99 08/23/22 04:20 99 08/23/22 04:10 99 08/23/22 04:00 98 08/23/22 03:50 98 08/23/22 03:40 08/23/22 03:30 97 08/23/22 03:20 95 08/23/22 03:10 08/23/22 03:00 08/23/22 02:50 08/23/22 02:40 08/23/22 02:30 08/23/22 02:20 08/23/22 02:19 08/23/22 01:55 96 08/23/22 01:45 96 08/23/22 01:30 96 08/23/22 01:20 96 08/23/22 01:10 95 08/23/22 01:00 96 08/22/22 20:00 08/22/22 19:16 91 L 08/22/22 16:57 94 L 08/22/22 15:57 93 L 08/22/22 15:26 08/22/22 14:58 08/22/22 14:44 99 08/22/22 14:28 100 08/22/22 14:21 98 08/22/22 14:13 100 08/22/22 13:50 94 L 08/22/22 13:35 94 L 08/22/22 13:20 96 08/22/22 13:05 92 L 08/22/22 11:05 96 Intake and Output 08/22/22 08/23/22 08/23/22 22:59 06:59 14:59 Intake Total 678 44 3908.419 Output Total 500 Balance -425 91 9803.419 Intake: IV 80 60 IV Fluid 80 60 Intake, IV Titration 50 321.419 Amount Norepinephrine 4 mg In 146.419 Sodium Chloride 0.9% 250 ml @ 0.03 MCG/KG/MIN 7. 932 mls/hr IV .Q24H [facility] Rx#:[id number] Piperacillin-Tazobactam 3 100 .375 gm In Sodium Chloride 0.9% 100 ml @ 25 mls/hr IVPB Q8HR [facility] Rx# :[id number] Sodium Chloride 0.9% 1, 75 000 ml @ 75 mls/hr IV . [id number] ONE Rx#:[id number] ceFAZolin 2 gm In Sodium 50 Chloride 0.9% 50 ml @ 100 mls/hr IVPB Q8H [facility] Rx#: [id number] Oral 250 240 Blood Product 0 620 Rc As-1 Unit 0 310 [id number] Rc As-1 Unit 310 [id number] Other 50 Rc As-1 Unit 50 [id number] Output: Urine 500 Other: Voiding Method Urinal Urinal # Voids 0 0 Results 08/23/22 01:53 08/23/22 01:46 Cardiac Enzymes 08/22/22 08/23/22 Range/Units 07:08 01:46 AST 21 (14-35) U/L Troponin I 0.013 (0.000-0.034) ng/mL CBC 08/22/22 08/23/22 Range/Units 07:08 01:53 WBC 23.26 H 48.6 H (4.50-10.00) X 10*3/uL RBC 4.05 L 3.06 L (4.40-5.60) X 10*6/uL Hgb 8.5 L 6.8 L* D (13.0-17.0) g/dL Hct 29.6 L 23.0 L (39.6-50.0) % Plt Count 231 142 L (140-440) X 10*3/uL Comprehensive Metabolic Panel 08/22/22 08/23/22 Range/Units 07:08 01:46 Sodium 137 137 (135-145) mmol/L Potassium 4.1 4.2 (3.5-5.5) mmol/L Chloride 102 108 H (96-109) mmol/L Carbon Dioxide 26.8 15 L (20.0-27.5) mmol/L BUN 27.3 H 26 H (9.0-27.0) mg/dL Creatinine 1.1 1.38 H (0.6-1.5) mg/dL Glucose 99 91 (70-110) mg/dL Calcium 7.5 L 6.5 L (8.7-10.3) mg/dL AST 21 (14-35) U/L ALT 17 (10-49) U/L Alkaline Phosphatase 75 (41-126) U/L Total Protein 5.7 L (6.2-8.2) g/dL Albumin 3.6 L (3.8-4.9) g/dL Current Medications Generic Name Dose Route Start Last Admin Trade Name Freq PRN Reason Stop Dose Admin Acetaminophen 500 mg 08/22/22 19:09 08/23/22 02:57 Acetaminophen Tab 500 Mg Tab PO 500 mg Q6HR PRN Administration Fever and/ or Pain Albuterol Sulfate 2.5 mg 08/21/22 18:15 Albuterol Nebulized 2.5 Mg/3 Ml INHALATION RT-QID PRN Shortness Of Breath Or Wheezing Atorvastatin Calcium 80 mg 08/21/22 21:00 08/22/22 20:03 Atorvastatin 80 Mg Tab PO 80 mg HS GAGANDEEP Administration Dapagliflozin 5 mg 08/22/22 09:00 08/23/22 10:06 Dapagliflozin Propanediol 5 Mg Tablet PO 5 mg DAILY GAGANDEEP Administration Hydromorphone HCl 0.5 mg 08/21/22 17:45 08/22/22 20:03 Hydromorphone 0.5 Mg/0.5 Ml Syringe IVP 0.5 mg Q3HR PRN Administration Pain Norepinephrine Bitartrate 4 mg 254 mls @ 7.932 mls/hr 08/23/22 02:30 08/23/22 10:06 / Sodium Chloride IV 0.13 mcg/kg/min .Q24H GAGANDEEP 34.374 mls/hr Titration Protocol 0.03 MCG/KG/MIN Piperacillin Sod/Tazobactam 100 mls @ 25 mls/hr 08/23/22 09:15 08/23/22 10:05 Sod 3.375 gm/ Sodium Chloride IVPB 25 mls/hr Q8HR GAGANDEEP Administration Protocol Ipratropium [place] 0.5 mg 08/21/22 18:15 Ipratropium 0.5 Mg/2.5 Ml Nebu INHALATION RT-QID PRN Shortness Of Breath Or Wheezing Levothyroxine Sodium 88 mcg 08/22/22 06:30 08/23/22 07:06 Levothyroxine 88 Mcg Tab PO 88 mcg DAILY@0630 [facility] Administration Magnesium Oxide 400 mg 08/21/22 17:57 Magnesium Oxide 400 Mg Tab PO DAILY PRN Muscle Spasm Naloxone HCl 0.2 mg 08/23/22 02:28 Naloxone 0.4 Mg/Ml 1 Ml Vial IV Q2M PRN Opioid Reversal Trazodone HCl 100 mg 08/21/22 21:00 08/22/22 20:04 Trazodone Hcl 100 Mg Tab PO 100 mg HS GAGANDEEP Administration Intake and Output 08/22/22 08/23/22 08/23/22 22:59 06:59 14:59 Intake Total 637 62 9586.419 Output Total 500 Balance -732 85 3895.419 Intake: IV 80 60 IV Fluid 80 60 Intake, IV Titration 50 321.419 Amount Norepinephrine 4 mg In 146.419 Sodium Chloride 0.9% 250 ml @ 0.03 MCG/KG/MIN 7. 932 mls/hr IV .Q24H [facility] Rx#:[id number] Piperacillin-Tazobactam 3 100 .375 gm In Sodium Chloride 0.9% 100 ml @ 25 mls/hr IVPB Q8HR [facility] Rx# :[id number] Sodium Chloride 0.9% 1, 75 000 ml @ 75 mls/hr IV . [id number] [facility] Rx#:[id number] ceFAZolin 2 gm In Sodium 50 Chloride 0.9% 50 ml @ 100 mls/hr IVPB Q8H [facility] Rx#: [id number] Oral 250 240 Blood Product 0 620 Rc As-1 Unit 0 310 [id number] Rc As-1 Unit 310 [id number] Other 50 Rc As-1 Unit 50 [id number] Output: Urine 500 Other: Voiding Method Urinal Urinal # Voids 0 0 08/23/22 01:53 08/23/22 01:46
--- NOTE | 2022-08-23 11:03 | P.PN ---
Subjective Progress Note Date: 08/23/22 HISTORY OF PRESENT ILLNESS: This is a 77-year-old male patient of [facility] with past medical history of non-small cell lung cancer diagnosed in 2009 status post lobectomy, remote history of tobacco use, remote history of alcohol abuse, alcoholic peripheral neuropathy, hypertension, coronary artery disease, paroxysmal atrial fibrillation, hypothyroidism, patient was getting out of his urologist office after a biopsy done with Dr. Avery last Wednesday and on his way down using his walker he fell down and he landed on his left lower extremity, patient got helped into the car and he went home and he did not have any contact with any physician he did not call my office he was supposed, seen in the office however he did not show up, patient sister brought him into the office yesterday with intractable pain and left hip as well as left lower extremity he did appear to have a significant swelling of the left hip area as well as significant hematoma to the left doherty, patient was not able to be ready within the left lower extremity EMS was called and the patient was transported to the emergency department at [facility] initial x-rays did not show evidence of acute fracture only soft tissue swelling he ended up going for a computed tomography scan of the hip that did show evidence of hematoma of the quadriceps muscles with soft tissue edema along with significant hematoma the left lower extremity without evidence of any fracture admitted show evidence of bilateral hip past arthritis, patient was started on IV pain management in the form of Dilaudid 0.5 mg 1 mg IV push every 3 hours as needed for pain control, orthopedic consultation was obtained for possible I&D of the hematoma the left lower extremity. 08/23: Patient underwent an I&D of the left leg hematoma by Dr. Schultz, patient went to the floor, patient developed to have a significant hypotensive episode, his blood pressure was 60/40 patient was given 2 L of IV fluid, repeated stat CBC showed a hemoglobin of 6.2, patient was transferred her to the ICU, he was started on Levothroid, he was given 2 units of packed red blood cells, and the patient was seen today he was sitting up in bed he is denying any chest pain at this time, he developed to have a significant chest pain yes terday, his EKG showed paced rhythm, he was seen in consultation by cardiology who recommended to hold antihypertensive medication as well as to hold anticoagulation, and monitor the patient very closely, patient also has been following with pulmonary/critical care, we will continue to monitor the patient ICU, patient prognosis is guarded. Patient will require physical therapy rehabilitation. REVIEW OF SYSTEMS: Constitutional: No documented fever, no chills, no night sweats. No weight change. No weakness, fatigue or lethargy. No daytime sleepiness. HEENT: No headache. No blurred vision or double vision, no loss of vision. very hard of Hearing, no ringing in the ears, no dizziness. No nasal drainage or congestion. No epistaxis. No sore throat. Lungs: No shortness of breath, no cough, no sputum production. no wheezing. Cardiovascular: No chest pain, positive for lower extremity edema. No palpitations. No paroxysmal nocturnal dyspnea. No orthopnea. No lightheadedness or dizziness. Reports syncopal episodes. Abdominal: Reports no abdominal pain. No nausea, vomiting. No diarrhea. No constipation. No bloody or tarry stools reports loss of appetite. Genitourinary: No dysuria, increased frequency, urgency. No urinary retention. Musculoskeletal: positive for myalgias. positive for left muscle weakness, positive for gait dysfunction, positive for frequent falls, positive for back pain and neck pain along with left hip and leg pain Integumentary: No wounds, no lesions. No rash or pruritus. positive for hematoma to the left leg with significant bruising Neurologic: No aphasia. No facial droop. No change in mentation. No head injury. No headache. No paralysis. No paresthesia. Psychiatric: positive for depression, positive for anxiety. No mood swings. Endocrine: No abnormal blood sugars. No weight change. PHYSICAL EXAMINATION: General: This is a 77-year-old male resting in bed in minima distress HEENT: Head is atraumatic, normocephalic, pupils were equal round reactive to light and recommendation, extraocular muscle movement were intact, sclera nonicteric, conjunctivae were pale, mucous membranes of the mouth are somewhat dry. Neck: Supple, no JVP, normal carotid upstroke bilaterally, no lymphadenopathy. Chest: Decreased breath sounds at the bases, no wheezes, no chest wall tenderness, no intercostal retractions. Heart: First heart sound is normal, second heart sounds normal, systolic ejection murmur 2/6 located at the left sternal border, ppm Abdomen: Soft, nontender, nondistended, positive bowel sounds. Extremities: There is +2 edema no calf tenderness DP +1 bilaterally, there is edema to the left hip and significant tenderness to the left hip and dressing to the left lower extremity. Neurologic examination: Patient is awake alert and oriented 3, cranial nerves II-12 appear grossly intact, muscle power were 4 out of 5 in upper extremities and 2 out of 5 in bilateral lower extremities, deep tendon reflexes normal bilaterally. ASSESSMENT AND PLAN: 1. Postoperative day #1 status post incision and drainage of left leg hematoma. Continue current pain management, monitor the patient very closely, orthopedic is following. Physical therapy evaluation. 2. Hypovolemic shock due to acute blood loss anemia. Patient did receive 2 units of packed red blood cells, continue IV fluid, monitor the patient input and output and daily weight, monitor the patient's CBC, continue patient on Levothroid, wean as indicated keep his mean arterial pressure greater than 65 3. chest pain likely related to hypovolemic shock and acute blood loss anemia. Status post 2 units of packed cells, echogram was done, hold on taking vision, continue pressors, cardiac consultation appreciated. 4. Leukocytosis with microcytosis and from cytopenia rule out myeloproliferative disorder/myelodysplasia. Check iron, TIBC, ferritin, B12, folic acid, reticulocyte count, LDH, haptoglobin, free light chain protein in the serum and urine [place] and Lambda , serum protein electrophoresis, hematology consultation. 5. History of non-small cell lung cancer in 2008 status post left pneumonectomy. 6. Hypertension and hypertensive cardiovascular disease . Currently hypotensive discontinue losartan and metoprolol. 7. Chronic diastolic heart failure. We will continue to hold all oral medications. 8. Paroxysmal atrial fibrillation. we will hold off Eliquis 9. History of sick sinus syndrome status post pacemaker implantation, stable. 10. Alcoholic peripheral neuropathy. stable. 11. Hypothyroidism. Continue levothyroxine 88 g daily. 12. GI prophylaxis. Protonix 40 mg daily. 13. DVT prophylaxis. we will hold off Eliquis for now. 14. PT OT evaluation as well as [employer] consultation for discharge planning. Objective - Vital Signs Vital signs: Vital Signs Temp 98 F 08/23/22 10:00 Pulse 60 08/23/22 10:00 Resp 17 08/23/22 10:00 BP 86/53 08/23/22 10:00 Pulse Ox 95 08/23/22 10:00 FiO2 Intake & Output 08/22/22 08/23/22 08/23/22 18:59 06:59 18:59 Intake Total 216 350 5247.419 Output Total 455 150 Balance -54 230 1291.419 Intake: IV 401 80 60 IV Fluid 80 60 Intake, IV Titration 50 321.419 Amount Norepinephrine 4 mg In 146.419 Sodium Chloride 0.9% 250 ml @ 0.03 MCG/KG/MIN 7. 932 mls/hr IV .Q24H REPLACED BY [facility] Rx#:[id number] Piperacillin-Tazobactam 3 100 .375 gm In Sodium Chloride 0.9% 100 ml @ 25 mls/hr IVPB Q8HR REPLACED BY [facility] Rx# :[id number] Sodium Chloride 0.9% 1, 75 000 ml @ 75 mls/hr IV . [id number] [facility] Rx#:[id number] ceFAZolin 2 gm In Sodium 50 Chloride 0.9% 50 ml @ 100 mls/hr IVPB Q8H REPLACED BY [facility] Rx#: [id number] Oral 250 240 Blood Product 0 620 Rc As-1 Unit 0 310 [id number] Rc As-1 Unit 310 [id number] Other 50 Rc As-1 Unit 50 [id number] Output: Urine 450 150 Estimated Blood Loss 5 Other: Voiding Method Urinal # Voids 0 0 - Labs CBC & Chem 7: 08/23/22 01:53 08/23/22 01:46 Labs: Abnormal Lab Results - Last 24 Hours (Table) 08/22/22 08/22/22 08/22/22 Range/Units 07:08 07:08 11:03 WBC 23.26 H (4.50-10.00) X 10*3/uL RBC 4.05 L (4.40-5.60) X 10*6/uL Hgb 8.5 L (13.0-17.0) g/dL Hct 29.6 L (39.6-50.0) % MCV 73.1 L (80.0-97.0) fL MCH 21.0 L (27.0-32.0) pg MCHC 28.7 L (32.0-37.0) g/dL RDW 16.1 H (11.5-14.5) % Plt Count (150-450) k/uL Neutrophils # (Manual) 18.61 H (2.00-8.90) X 10*3/uL Lymphocytes # (Manual) 0.70 L (0.90-5.00) X 10*3/uL Monocytes # (Manual) 3.72 H (0.20-1.00) X 10*3/uL Eosinophils # (Manual) 0 L (0.04-0.35) X 10*3/uL Basophils # (Manual) 0.23 H (0.00-0.10) X 10*3/uL Chloride (98-107) mmol/L Carbon Dioxide (22-30) mmol/L Anion Gap 8.20 L (10.00-18.00) mmol/L BUN 27.3 H (9.0-27.0) mg/dL Creatinine (0.66-1.25) mg/dL BUN/Creatinine Ratio 24.82 H (12.00-20.00) Ratio POC Glucose (mg/dL) 232 H (70-110) mg/dL Calcium 7.5 L (8.7-10.3) mg/dL Magnesium (1.6-2.3) mg/dL Total Bilirubin 1.50 H (0.30-1.20) mg/dL Total Protein 5.7 L (6.2-8.2) g/dL Albumin 3.6 L (3.8-4.9) g/dL Crossmatch 08/23/22 08/23/22 08/23/22 Range/Units 01:46 01:53 03:51 WBC 48.6 H (4.50-10.00) X 10*3/uL RBC 3.06 L (4.40-5.60) X 10*6/uL Hgb 6.8 L* D (13.0-17.0) g/dL Hct 23.0 L (39.6-50.0) % MCV 75.1 L (80.0-97.0) fL MCH 22.4 L (27.0-32.0) pg MCHC 29.8 L (32.0-37.0) g/dL RDW (11.5-14.5) % Plt Count 142 L (150-450) k/uL Neutrophils # (Manual) 38.80 H (2.00-8.90) X 10*3/uL Lymphocytes # (Manual) (0.90-5.00) X 10*3/uL Monocytes # (Manual) 8.26 H (0.20-1.00) X 10*3/uL Eosinophils # (Manual) (0.04-0.35) X 10*3/uL Basophils # (Manual) (0.00-0.10) X 10*3/uL Chloride 108 H (98-107) mmol/L Carbon Dioxide 15 L (22-30) mmol/L Anion Gap (10.00-18.00) mmol/L BUN 26 H (9.0-27.0) mg/dL Creatinine 1.38 H (0.66-1.25) mg/dL BUN/Creatinine Ratio (12.00-20.00) Ratio POC Glucose (mg/dL) (70-110) mg/dL Calcium 6.5 L (8.7-10.3) mg/dL Magnesium 1.5 L (1.6-2.3) mg/dL Total Bilirubin (0.30-1.20) mg/dL Total Protein (6.2-8.2) g/dL Albumin (3.8-4.9) g/dL Crossmatch See Detail
[2022-08-23] MEDS ORDERED: Magnesium Replacement Protocol 1 EACH MISC MISCELLANE PRN (11:30)
[2022-08-23] MEDS: MAGNESIUM SULFATE-D5W PMX 1 GM in DEXTROSE/WATER 1 100ML.BAG IVPB SCH ×2 (11:38→13:05)
--- NOTE | 2022-08-23 12:18 | P.PN ---
Subjective Progress Note Date: 08/23/22 Principal diagnosis: Status post left lower extremity hematoma evacuation Patient evaluated today, he is currently in the ICU. Patient was transferred the last night after a severe hypotensive episode, he is being pulmonology group along with internal medicine. He is having minimal discomfort in the left lower extremity at this time. Objective - Vital Signs Vital signs: Vital Signs Temp 98 F 08/23/22 10:00 Pulse 60 08/23/22 11:00 Resp 18 08/23/22 11:00 BP 113/62 08/23/22 11:00 Pulse Ox 97 08/23/22 11:00 FiO2 Intake & Output 08/22/22 08/23/22 08/23/22 18:59 06:59 18:59 Intake Total 330 076 1214.438 Output Total 455 150 Balance -54 230 1429.438 Intake: IV 401 80 135 IV Fluid 80 135 Intake, IV Titration 50 384.438 Amount Norepinephrine 4 mg In 209.438 Sodium Chloride 0.9% 250 ml @ 0.03 MCG/KG/MIN 7. 932 mls/hr IV .Q24H [facility] Rx#:[id number] Piperacillin-Tazobactam 3 100 .375 gm In Sodium Chloride 0.9% 100 ml @ 25 mls/hr IVPB Q8HR [facility] Rx# :[id number] Sodium Chloride 0.9% 1, 75 000 ml @ 75 mls/hr IV . [id number] [facility] Rx#:[id number] ceFAZolin 2 gm In Sodium 50 Chloride 0.9% 50 ml @ 100 mls/hr IVPB Q8H [facility] Rx#: [id number] Oral 250 240 Blood Product 0 620 Rc As-1 Unit 0 310 [id number] Rc As-1 Unit 310 [id number] Other 50 Rc As-1 Unit 50 [id number] Output: Urine 450 150 Estimated Blood Loss 5 Other: Voiding Method Urinal # Voids 0 0 - Exam Left lower extremity: Postoperative bandages in good position and condition. Generalized swelling in the extremity is present. Logroll maneuver the extremity reproduces no pain, tenderness with palpation of the knee, foot or ankle. Plantar flexion, dorsiflexion, EHL, FHL are intact. Sensory exam light touch is intact of the extremity, dorsalis pedis pulses 2+ - Labs CBC & Chem 7: 08/23/22 01:53 08/23/22 01:46 Labs: Abnormal Lab Results - Last 24 Hours (Table) 08/22/22 08/23/22 08/23/22 Range/Units 07:08 01:46 01:53 WBC 23.26 H 48.6 H (4.50-10.00) X 10*3/uL RBC 4.05 L 3.06 L (4.40-5.60) X 10*6/uL Hgb 8.5 L 6.8 L* D (13.0-17.0) g/dL Hct 29.6 L 23.0 L (39.6-50.0) % MCV 73.1 L 75.1 L (80.0-97.0) fL MCH 21.0 L 22.4 L (27.0-32.0) pg MCHC 28.7 L 29.8 L (32.0-37.0) g/dL RDW 16.1 H (11.5-14.5) % Plt Count 142 L (150-450) k/uL Neutrophils # (Manual) 18.61 H 38.80 H (2.00-8.90) X 10*3/uL Lymphocytes # (Manual) 0.70 L (0.90-5.00) X 10*3/uL Monocytes # (Manual) 3.72 H 8.26 H (0.20-1.00) X 10*3/uL Eosinophils # (Manual) 0 L (0.04-0.35) X 10*3/uL Basophils # (Manual) 0.23 H (0.00-0.10) X 10*3/uL Chloride 108 H (98-107) mmol/L Carbon Dioxide 15 L (22-30) mmol/L BUN 26 H (9-20) mg/dL Creatinine 1.38 H (0.66-1.25) mg/dL Calcium 6.5 L (8.4-10.2) mg/dL Magnesium 1.5 L (1.6-2.3) mg/dL Crossmatch 08/23/22 Range/Units 03:51 WBC (4.50-10.00) X 10*3/uL RBC (4.40-5.60) X 10*6/uL Hgb (13.0-17.0) g/dL Hct (39.6-50.0) % MCV (80.0-97.0) fL MCH (27.0-32.0) pg MCHC (32.0-37.0) g/dL RDW (11.5-14.5) % Plt Count (150-450) k/uL Neutrophils # (Manual) (2.00-8.90) X 10*3/uL Lymphocytes # (Manual) (0.90-5.00) X 10*3/uL Monocytes # (Manual) (0.20-1.00) X 10*3/uL Eosinophils # (Manual) (0.04-0.35) X 10*3/uL Basophils # (Manual) (0.00-0.10) X 10*3/uL Chloride (98-107) mmol/L Carbon Dioxide (22-30) mmol/L BUN (9-20) mg/dL Creatinine (0.66-1.25) mg/dL Calcium (8.4-10.2) mg/dL Magnesium (1.6-2.3) mg/dL Crossmatch See Detail Assessment and Plan Assessment: Postoperative day #1 status post left lower extremity hematoma evacuation Hypotensive Anemia Other medical comorbidities Plan: Dressing and probably postop dressing in place, plan for dressing change on 08/24/2022 Orthopedically patient can weight-bear as tolerated on the left lower extremity, recommend use of walker GI and DVT prophylaxis per primary medical service Other medical sales recommendations appreciated We will continue to follow during hospital stay Time with Patient: Less than 30
[2022-08-23 12:29] LABS: ALT 20 U/L (4-49); AST 54 U/L (17-59); African American GFR (CKD) 55 (>60 ml/min/1.73 sqM); Albumin/Globulin Ratio 1.3; Alkaline Phosphatase 75 U/L (38-126); Anion Gap 9 mmol/L; Blood Urea Nitrogen 30 mg/dL (9-20); Carbon Dioxide 22 mmol/L (22-30); Chloride 104 mmol/L (98-107); Globulin 2.3 g/dL; Glucose 124 mg/dL (74-99); Non-African American GFR(CKD) 47 (>60 ml/min/1.73 sqM); Sodium 135 mmol/L (137-145); Total Bilirubin 1.9 mg/dL (0.2-1.3); Total Protein 5.3 g/dL (6.3-8.2)
[2022-08-23 12:30] LABS: Phosphorus 3.8 mg/dL (2.5-4.5); Total Bilirubin 1.9 mg/dL (0.2-1.3); Uric Acid 5.9 mg/dL (3.5-8.5)
[2022-08-23 12:41] LABS: HCT 34.1 % (39.0-53.0); Hypochromasia Marked; MCH 22.9 pg (25.0-35.0); MCHC 31.1 g/dL (31.0-37.0); MCV 73.8 fL (80.0-100.0); Mean Platelet Volume 9.1; Microcytosis Slight; Platelet Count 237 k/uL (150-450); Poikilocytosis Slight; RBC 4.62 m/uL (4.30-5.90); WBC 49.3 k/uL (3.8-10.6)
[2022-08-23 12:46] LABS: HGB 10.6 gm/dL (13.0-17.5); Reticulocyte % 3.9 % (0.5-2.0)
[2022-08-23 12:59] LABS: Amorphous Sediment,Urine Moderate /hpf; Appearance,Urine Turbid (Clear); Bacteria,Urine Few /hpf; Bilirubin,Urine Negative (Negative); Blood,Urine Large (Negative); Color,Urine Red; Glucose,Urine (UA) 4+ (Negative); Hyaline Casts,Urine 9 /lpf (0-2); Ketones,Urine 1+ (Negative); Leukocyte Esterase,Urine Trace (Negative); Nitrite,Urine Negative (Negative); PH, Urine 5.5 (5.0-8.0); Protein,Urine 1+ (Negative); RBC,Urine >182 /hpf (0-5); Specific Gravity,Urine 1.021 (1.001-1.035); Urobilinogen,Urine <2.0 mg/dL (<2.0); WBC,Urine 52 /hpf (0-5)
[2022-08-23 13:06] LABS: Calcium 6.4 mg/dL (8.4-10.2)
[2022-08-23 13:12] LABS: INR 1.1 (<1.2); Partial Thromboplastin Time 24.2 sec (22.0-30.0); Prothrombin Time 11.4 sec (9.0-12.0)
--- NOTE | 2022-08-23 13:17 | P.CNPUL ---
History of Present Illness Consult date: 08/23/22 Requesting physician: Nat Oglesby Reason for consult: other (ICU management, hypotension, acute blood loss anemia) Chief complaint: Left lower extremity swelling History of present illness: This is a 77-year-old white male with history of multiple medical problems including chronic atrial fibrillation, maintained on a course, history of non- small cell lung cancer and previous left-sided pneumonectomy, history of tachybradycardia syndrome and previous pacemaker implantation, hypertension, hyp othyroidism, patient sustained a fall about 10 days ago, landed on his left side, and sustained swelling to the left lower extremity and to the left hip area. He came into the hospital on 08/21/2022,, complaining of pain in the left lower extremity, and he was found to have significant hematoma underwent evacuation of hematoma and washout of the left doherty. Yesterday, I was notified about this patient that he was found hypotensive, low hemoglobin, patient was confused, and did not improve with 2 L of fluids, hence we transfer the patient to the ICU. In the meantime I recommended a stat CBC and if hemoglobin below 7 to transfuse the patient with 2 units of blood, and start the patient on nor epinephrine after fluid boluses. Patient was seen in the ER today, he already received 1 unit of packed RBCs, and the second unit is pending. His hemoglobin was 6.8 earlier today. Patient is receiving fluids at 0.9 normal saline 75 mL per hour. He already received 2 fluid boluses of saline. Patient is requiring norepinephrine at 0.1 mcg/kg/m. He is on 2 L nasal cannula. His left lower extremity was evaluated, no significant hematoma is noted in the left lower extremity at the surgical site, however the patient does have significant swelling in the left hip area this was evaluated by orthopedics and he had trauma to the quadriceps muscles of the left hip with possible intramuscular hem orrhage. Eliquis remains on hold. Patient received another unit of packed RBCs shortly after I evaluated him, and repeat hemoglobin was 10.6. However the patient was noted to have significant leukocytosis/leukemoid reaction with WBC count of 49.3, however this leukemoid reaction-type of picture has been noted on previous admission on this patient with elevated WBC count as high as 45,000, oncology was consulted on this patient regarding his chronic and intermittent leukocytosis/leukemoid reaction Review of Systems CONSTITUTIONAL: Negative.. CARDIOVASCULAR: Negative.. RESPIRATORY: Denies any shortness of breath cough or wheezing. GASTROINTESTINAL: Denies nausea vomiting or melena or hematemesis. Denies any abdominal pain or diarrhea. MUSCULOSKELETAL: Left hip discomfort. NEUROLOGIC: Negative.. ENDOCRINE: Negative.. GENITOURINARY: Negative.. HEMATOLOGIC: As noted in HPI, peptic patient has acute blood loss anemia and history of intermittent episodes of leukemoid reaction/leukocytosis. Psychiatric: Negative. Skin: Negative. Past Medical History Past Medical History: Coronary Artery Disease (CAD), Hypertension, Thyroid Disorder Additional Past Medical History / Comment(s): vertigo Last Myocardial Infarction Date:: 2013 History of Any Multi-Drug Resistant Organisms: None Reported Past Surgical History: Hernia Repair, Pacemaker Additional Past Surgical History / Comment(s): Left lung removed Past Anesthesia/Blood Transfusion Reactions: No Reported Reaction Type of Cardiac Device: Unknown Device Placement Date:: June, Past Psychological History: No Psychological Hx Reported Additional Psychological History / Comment(s): Pt resides alone in an apartment. He is independent. Smoking Status: Never smoker Past Alcohol Use History: None Reported Additional Past Alcohol Use History / Comment(s): Pt started smoking in 1959 and quit in 2008. Pt was a heavy drinker/quit in 2008 Past Drug Use History: None Reported - Past Family History Father Family Medical History: Memory Impairment Additional Family Medical History / Comment(s): Father at age 71 from a myocardial infarction. Mother Family Medical History: No Reported History Additional Family Medical History / Comment(s): Mother at age 92 from old age. Brother(s) Additional Family Medical History / Comment(s): Patient has 3 brothers alive with no major medical problems. One brother is dying from stomach cancer. Sister(s) Additional Family Medical History / Comment(s): Patient has one sister and she is alive. History of hypertension and hyperlipidemia. Medications and Allergies Home Medications Medication Instructions Recorded Confirmed Type Atorvastatin [Lipitor] 80 mg PO HS 06/11/20 08/21/22 History Magnesium Oxide 400 mg PO DAILY PRN 12/23/20 08/21/22 History Metoprolol Succinate (ER) [Toprol 100 mg PO DAILY 12/23/20 08/21/22 History XL] Losartan [Cozaar] 50 mg PO DAILY 10/20/21 08/21/22 History Apixaban [Eliquis] 5 mg PO BID #60 tab 10/22/21 08/21/22 Rx Bumetanide [Bumex] 1 mg PO BID 08/21/22 08/21/22 History Empagliflozin [Jardiance] 10 mg PO DAILY 08/21/22 08/21/22 History Ipratropium-Albuterol Nebulize 3 ml INHALATION RT-QID PRN 08/21/22 08/21/22 History [Duoneb 0.5 mg-3 mg/3 ml Soln] Levothyroxine Sodium [Synthroid] 88 mcg PO DAILY 08/21/22 08/21/22 History traZODone HCL [Desyrel] 100 mg PO HS 08/21/22 08/21/22 History Allergies Allergy/AdvReac Type Severity Reaction Status Date / Time No Known Allergies Allergy Verified 08/21/22 13:33 Physical Exam Vitals: Vital Signs Temp Pulse Pulse Resp BP BP BP 08/23/22 13:00 71 25 H 107/55 08/23/22 12:45 69 21 117/62 08/23/22 12:30 69 21 111/66 08/23/22 12:15 76 24 120/59 08/23/22 12:00 98 F 82 18 115/59 08/23/22 11:45 76 16 96/48 08/23/22 11:30 62 18 99/73 08/23/22 11:15 60 17 103/58 08/23/22 11:00 60 18 113/62 08/23/22 10:45 71 22 102/49 08/23/22 10:30 64 18 112/54 08/23/22 10:15 64 20 82/38 08/23/22 10:00 98 F 60 17 86/53 08/23/22 09:50 60 18 86/53 08/23/22 09:40 61 19 83/44 08/23/22 09:30 59 L 16 86/47 08/23/22 09:20 65 18 86/47 08/23/22 09:10 67 17 83/51 08/23/22 09:00 60 17 90/45 08/23/22 08:50 19 08/23/22 08:40 68 24 117/50 03/19/23 08:30 73 18 105/47 03/19/23 08:20 97.9 F 72 20 105/47 08/23/22 08:10 70 20 102/54 08/23/22 08:00 98 F 75 22 08/23/22 07:50 98.1 F 68 20 93/47 08/23/22 07:40 59 L 11 L 08/23/22 07:30 59 L 18 92/46 08/23/22 07:14 99.6 F 62 17 92/46 08/23/22 07:00 63 15 92/43 08/23/22 06:50 59 L 13 92/43 08/23/22 06:40 62 18 91/42 08/23/22 06:30 60 17 92/44 08/23/22 06:20 11 L 92/44 08/23/22 06:10 60 15 107/86 08/23/22 06:00 66 26 H 87/42 08/23/22 05:50 67 16 87/42 08/23/22 05:43 98.4 F 60 12 87/43 08/23/22 05:40 61 14 87/43 08/23/22 05:30 60 21 90/41 08/23/22 05:23 98.0 F 60 19 90/41 08/23/22 05:20 60 13 90/41 08/23/22 05:14 98.1 F 61 17 74/34 08/23/22 05:10 62 16 74/34 08/23/22 05:00 59 L 13 94/45 08/23/22 04:50 61 13 94/45 08/23/22 04:40 60 10 L 71/34 08/23/22 04:30 60 10 L 79/39 08/23/22 04:20 60 11 L 79/39 08/23/22 04:10 60 15 86/36 08/23/22 04:00 61 15 93/38 08/23/22 03:50 83 12 93/38 08/23/22 03:40 74 17 98/47 08/23/22 03:30 80 15 82/66 08/23/22 03:20 81 13 82/66 08/23/22 03:10 86 15 85/39 08/23/22 03:00 64 13 75/35 08/23/22 02:50 81 19 75/35 08/23/22 02:40 63 14 76/37 08/23/22 02:30 71 13 85/46 08/23/22 02:20 82 16 08/23/22 02:19 84 17 08/23/22 01:55 64 16 71/32 08/23/22 01:45 63 16 70/33 08/23/22 01:30 63 16 63/42 08/23/22 01:20 62 16 51/35 08/23/22 01:10 62 16 52/30 08/23/22 01:00 97.8 F 60 16 50/20 08/22/22 20:00 99 16 08/22/22 19:16 98.3 F 93 16 99/63 08/22/22 16:57 99 115/71 08/22/22 15:57 88 119/54 08/22/22 15:26 62 113/61 08/22/22 14:58 70 128/51 08/22/22 14:44 61 124/52 08/22/22 14:28 65 122/56 08/22/22 14:21 97.6 F 72 16 127/70 08/22/22 14:13 60 116/51 08/22/22 13:50 60 16 113/55 08/22/22 13:35 60 16 119/55 08/22/22 13:20 60 16 101/56 08/22/22 13:05 61 16 97/47 Pulse Ox 08/23/22 13:00 95 08/23/22 12:45 95 08/23/22 12:30 94 L 08/23/22 12:15 94 L 08/23/22 12:00 94 L 08/23/22 11:45 96 08/23/22 11:30 97 08/23/22 11:15 94 L 08/23/22 11:00 97 08/23/22 10:45 95 08/23/22 10:30 95 08/23/22 10:15 96 08/23/22 10:00 95 08/23/22 09:50 95 08/23/22 09:40 95 08/23/22 09:30 96 08/23/22 09:20 94 L 08/23/22 09:10 97 08/23/22 09:00 96 08/23/22 08:50 94 L 08/23/22 08:40 95 08/23/22 08:30 94 L 08/23/22 08:20 94 L 08/23/22 08:10 93 L 08/23/22 08:00 94 L 08/23/22 07:50 93 L 08/23/22 07:40 94 L 08/23/22 07:30 97 08/23/22 07:14 97 08/23/22 07:00 98 08/23/22 06:50 97 08/23/22 06:40 97 08/23/22 06:30 97 08/23/22 06:20 98 08/23/22 06:10 97 08/23/22 06:00 97 08/23/22 05:50 98 08/23/22 05:43 98 08/23/22 05:40 98 08/23/22 05:30 97 08/23/22 05:23 97 08/23/22 05:20 97 08/23/22 05:14 08/23/22 05:10 98 08/23/22 05:00 98 08/23/22 04:50 98 08/23/22 04:40 98 08/23/22 04:30 99 08/23/22 04:20 99 08/23/22 04:10 99 08/23/22 04:00 98 08/23/22 03:50 98 08/23/22 03:40 08/23/22 03:30 97 08/23/22 03:20 95 08/23/22 03:10 08/23/22 03:00 08/23/22 02:50 08/23/22 02:40 08/23/22 02:30 08/23/22 02:20 08/23/22 02:19 08/23/22 01:55 96 08/23/22 01:45 96 08/23/22 01:30 96 08/23/22 01:20 96 08/23/22 01:10 95 08/23/22 01:00 96 08/22/22 20:00 08/22/22 19:16 91 L 08/22/22 16:57 94 L 08/22/22 15:57 93 L 08/22/22 15:26 08/22/22 14:58 08/22/22 14:44 99 08/22/22 14:28 100 08/22/22 14:21 98 08/22/22 14:13 100 08/22/22 13:50 94 L 08/22/22 13:35 94 L 08/22/22 13:20 96 08/22/22 13:05 92 L Intake and Output 08/22/22 08/23/22 08/23/22 22:59 06:59 14:59 Intake Total 762 59 1040.168 Output Total 500 Balance -408 02 8997.168 Intake: IV 80 135 IV Fluid 80 135 Intake, IV Titration 50 416.168 Amount Norepinephrine 4 mg In 241.168 Sodium Chloride 0.9% 250 ml @ 0.03 MCG/KG/MIN 7. 932 mls/hr IV .Q24H [facility] Rx#:[id number] Piperacillin-Tazobactam 3 100 .375 gm In Sodium Chloride 0.9% 100 ml @ 25 mls/hr IVPB Q8HR [facility] Rx# :[id number] Sodium Chloride 0.9% 1, 75 000 ml @ 75 mls/hr IV . [id number] [facility] Rx#:[id number] ceFAZolin 2 gm In Sodium 50 Chloride 0.9% 50 ml @ 100 mls/hr IVPB Q8H [facility] Rx#: [id number] Oral 250 240 Blood Product 0 620 Rc As-1 Unit 0 310 [id number] Rc As-1 Unit 310 [id number] Other 50 Rc As-1 Unit 50 [id number] Output: Urine 500 Other: Voiding Method Urinal Urinal # Voids 0 0 Physical Exam: Revealed 77-year-old white male in no distress. Head: Atraumatic normocephalic. HEENT:[ PERRLA, EOMI, dry mucous membranes. Neck is supple.] [No neck masses.] [No thyromegaly.] [No JVD.] Chest: [Diminished breath sound on the left side, normal breath sounds on the right side. No rhonchi no wheezes. Cardiac Exam: Normal S1 and S2, 2/6 systolic murmur at the apex, no gallop, no rub Abdomen: [Soft, nontender, no megaly, no rebound, no guarding, normal bowel sounds.] Extremities: [No clubbing, no edema, no cyanosis. Surgical dressing noted in the left calf region, related to recent evacuation of hematoma. No evidence of swelling or hematoma recurrence. There is however significant swelling noted over the left hip area laterally.] Neurological Exam: Alert and oriented 3. [No focal neurologic deficit.] Psychiatric: Normal mood affect and normal mental status examination. Skin: No rashes. Results - Laboratory Findings CBC and BMP: 08/23/22 11:59 08/23/22 01:46 PT/INR, D-dimer PT 10.7 sec (9.0-12.0) 08/22/22 07:08 INR 1.0 (<1.2) 08/22/22 07:08 Abnormal lab findings: Abnormal Labs 08/21/22 08/21/22 08/22/22 15:30 15:30 07:08 WBC 20.3 H 23.26 H RBC 4.05 L Hgb 10.3 L 8.5 L Hct 33.6 L 29.6 L MCV 71.5 L D 73.1 L MCH 21.9 L 21.0 L MCHC 30.6 L 28.7 L RDW 16.1 H Plt Count Neutrophils # (Manual) 15.63 H 18.61 H Lymphocytes # (Manual) 0.70 L Monocytes # (Manual) 2.84 H 3.72 H Eosinophils # (Manual) 0 L Basophils # (Manual) 0.23 H Chloride Carbon Dioxide Anion Gap BUN 39 H Creatinine 1.42 H BUN/Creatinine Ratio POC Glucose (mg/dL) Calcium 7.8 L Magnesium Total Bilirubin 1.8 H Total Protein Albumin Crossmatch 08/22/22 08/22/22 08/23/22 07:08 11:03 01:46 WBC RBC Hgb Hct MCV MCH MCHC RDW Plt Count Neutrophils # (Manual) Lymphocytes # (Manual) Monocytes # (Manual) Eosinophils # (Manual) Basophils # (Manual) Chloride 108 H Carbon Dioxide 15 L Anion Gap 8.20 L BUN 27.3 H 26 H Creatinine 1.38 H BUN/Creatinine Ratio 24.82 H POC Glucose (mg/dL) 232 H Calcium 7.5 L 6.5 L Magnesium 1.5 L Total Bilirubin 1.50 H Total Protein 5.7 L Albumin 3.6 L Crossmatch 08/23/22 08/23/22 08/23/22 01:53 03:51 11:59 WBC 48.6 H 49.3 H RBC 3.06 L Hgb 6.8 L* D 10.6 L D Hct 23.0 L 34.1 L MCV 75.1 L 73.8 L MCH 22.4 L 22.9 L MCHC 29.8 L RDW 16.0 H Plt Count 142 L Neutrophils # (Manual) 38.80 H Lymphocytes # (Manual) Monocytes # (Manual) 8.26 H Eosinophils # (Manual) Basophils # (Manual) Chloride Carbon Dioxide Anion Gap BUN Creatinine BUN/Creatinine Ratio POC Glucose (mg/dL) Calcium Magnesium Total Bilirubin Total Protein Albumin Crossmatch See Detail 08/23/22 11:59 WBC RBC Hgb Hct MCV MCH MCHC RDW Plt Count Neutrophils # (Manual) Lymphocytes # (Manual) Monocytes # (Manual) Eosinophils # (Manual) Basophils # (Manual) Chloride Carbon Dioxide Anion Gap BUN Creatinine BUN/Creatinine Ratio POC Glucose (mg/dL) Calcium Magnesium Total Bilirubin 1.9 H Total Protein Albumin Crossmatch - Diagnostic Findings Chest x-ray: image reviewed (As noted in HPI, patient had previous pneumonectomy on the left side, right side is unremarkable.) Assessment and Plan Assessment: Impression: Acute blood loss anemia, I believe the 2 sources of bleeding are in the left calf region and in the left hip area, that is being addressed by orthopedics, Patient should be monitored for other sources of bleeding including abdomen, pelvis, and GI. At this point he responded well to 2 units of packed RBCs, will continue to monitor for any further blood loss or drop in hemoglobin. Hypotension secondary to blood loss anemia and hypovolemia, definitely doubt sepsis as his presentation does not seem to be a septic presentation. History of pacemaker implantation for tachybradycardia syndrome. History of hypertension History of hypothyroidism History of non-small cell lung cancer and previous left-sided pneumonectomy in 2008 Ex-smoker Left lower extremity hematoma being addressed by orthopedics, patient is status post evacuation of hematoma on 08/22/2022. Left hip trauma and intramuscular hemorrhage. Being addressed by orthopedics on the case. Recommendation: Continue to hold eliquis Transfuse and maintaining hemoglobin above 7 patient already received 2 units of packed RBCs Hold blood pressure medications since the patient is hypotensive and required norepinephrine Renal ultrasound since the patient had gross hematuria noted according to the nurses May have to consider CT of abdomen and pelvis. Check Hemoccult stools. Empiric antibiotics although I strongly doubt sepsis Hematology to evaluate for his leukemoid reaction, apparently this has been present for quite some time and they can't looking at previous admissions and previous blood work on this patient. Continue to monitor in the ICU. We will continue to follow. Time with Patient: Greater than 30
--- NOTE | 2022-08-23 13:56 | US ---
EXAMINATION TYPE: US renals and bladder DATE OF EXAM: 08/23/2022 COMPARISON: NONE CLINICAL HISTORY: 77-year-old male Hematuria. ICU patient. TECHNIQUE: Multiple sonographic images of the kidneys and bladder. FINDINGS: EXAM MEASUREMENTS: Right Kidney: 9.3 x 4.4 x 5.3 cm Left Kidney: 11.1 x 4.6 x 5.4 cm Right Kidney: Some cortical thinning is present. No hydronephrosis or masses seen. Left Kidney: Some cortical thinning is present. No hydronephrosis or masses seen. Limited due to pat ients position. Bladder: distended, anechoic Right jet seen Prominent prostate gland measuring up to 5.6 cm wide. IMPRESSION: No hydronephrosis. There may be some underlying chronic medical renal disease. Prostatomegaly of 5.6 cm wide.
[2022-08-23] MEDS ORDERED: VANCOMYCIN IV PER PHARMACY 1 EACH MISC MISCELLANE PRN (13:59)
[2022-08-23] MEDS ORDERED: VANCOMYCIN 1,250 MG in SODIUM CHLORIDE 0.9% 250 ML IVPB SCH (14:00)
[2022-08-23 14:33] LABS: Lymphocytes # (M) 0.49 k/uL (1.0-4.8); Monocytes # (M) 6.41 k/uL (0-1.0); Neutrophils % (M) 86 %; Nucleated Red Blood Cells 0 /100 WBC (0-0); Total Cells Counted 100
--- NOTE | 2022-08-23 17:01 | P.PN ---
Subjective Progress Note Date: 08/23/22 Principal diagnosis: Leukocytosis/anemia Upon visit today pt was resting comfortably in bed. Pt became hypotensive last night and was transferred to the ICU. He is currently on levophed. Hgb was 6.8 today and 2 units of PRBCs was ordered. Nurse reports she did send urine down t his morning and urine was bloody. UA positive for RBCs. Renal US has been placed. Pt denies blood in stool or melena, but pt reports he has had a BM in the last 5-7 days. Pulmonology and ID on consult. Pt was started on empiric abx, blood cultures obtained. Objective - Vital Signs Vital signs: Vital Signs Temp 98.4 F 08/23/22 16:00 Pulse 62 08/23/22 16:00 Resp 16 08/23/22 16:00 BP 106/68 08/23/22 16:00 Pulse Ox 96 08/23/22 16:00 FiO2 Intake & Output 08/22/22 08/23/22 08/23/22 18:59 06:59 18:59 Intake Total 554 249 4689.277 Output Total 455 150 400 Balance -54 230 2481.277 Intake: IV 401 80 510 IV Fluid 80 510 Intake, IV Titration 50 981.277 Amount Magnesium Sulfate-D5w Pmx 200 1 gm In Dextrose/Water 1 100ml.bag @ 100 mls/hr IVPB Q1H [facility] Rx#: [id number] Norepinephrine 4 mg In 356.277 Sodium Chloride 0.9% 250 ml @ 0.03 MCG/KG/MIN 7. 932 mls/hr IV .Q24H [facility] Rx#:[id number] Piperacillin-Tazobactam 3 100 .375 gm In Sodium Chloride 0.9% 100 ml @ 25 mls/hr IVPB Q8HR [facility] Rx# :[id number] Sodium Chloride 0.9% 1, 75 000 ml @ 75 mls/hr IV . [id number] [facility] Rx#:[id number] Vancomycin 1,250 mg In 250 Sodium Chloride 0.9% 250 ml @ 125 mls/hr IVPB Q24H [facility] Rx#:[id number] ceFAZolin 2 gm In Sodium 50 Chloride 0.9% 50 ml @ 100 mls/hr IVPB Q8H [facility] Rx#: [id number] Oral 250 720 Blood Product 0 620 Rc As-1 Unit 0 310 [id number] Rc As-1 Unit 310 [id number] Other 50 Rc As-1 Unit 50 [id number] Output: Urine 450 150 400 Estimated Blood Loss 5 Other: Voiding Method Urinal Urinal # Voids 0 0 - Constitutional General appearance: Present: average body habitus, no acute distress - EENT Eyes: Present: anicteric sclerae, EOMI ENT: Present: hard of hearing - Respiratory Respiratory: bilateral: CTA - Cardiovascular Rhythm: regular Heart sounds: normal: S1, S2 Abnormal Heart Sounds: Absent: systolic murmur, diastolic murmur, rub, S3 Gallop, S4 Gallop, click, other - Genitourinary Genitourinary Comment(s): LLE bandage in place, localized bruising and swelling to LLE - Integumentary Integumentary: Present: pale - Neurologic Neurologic Comment(s): grossly intact - Musculoskeletal Musculoskeletal: Present: generalized weakness - Psychiatric Psychiatric: Present: A&O x's 3 - Labs CBC & Chem 7: 08/23/22 11:59 08/23/22 11:59 Labs: Abnormal Lab Results - Last 24 Hours (Table) 08/23/22 08/23/22 08/23/22 Range/Units 01:46 01:53 03:51 WBC 48.6 H (3.8-10.6) k/uL RBC 3.06 L (4.30-5.90) m/uL Hgb 6.8 L* D (13.0-17.5) gm/dL Hct 23.0 L (39.0-53.0) % MCV 75.1 L (80.0-100.0) fL MCH 22.4 L (25.0-35.0) pg MCHC 29.8 L (31.0-37.0) g/dL RDW (11.5-15.5) % Plt Count 142 L (150-450) k/uL Neutrophils # (Manual) 38.80 H (1.3-7.7) k/uL Lymphocytes # (Manual) (1.0-4.8) k/uL Monocytes # (Manual) 8.26 H (0-1.0) k/uL Retic Count (0.5-2.0) % Sodium (137-145) mmol/L Chloride 108 H (98-107) mmol/L Carbon Dioxide 15 L (22-30) mmol/L BUN 26 H (9-20) mg/dL Creatinine 1.38 H (0.66-1.25) mg/dL Glucose (74-99) mg/dL Calcium 6.5 L (8.4-10.2) mg/dL Magnesium 1.5 L (1.6-2.3) mg/dL Total Bilirubin (0.2-1.3) mg/dL Troponin I (0.000-0.034) ng/mL Total Protein (6.3-8.2) g/dL Albumin (3.5-5.0) g/dL Urine Protein (Negative) Urine Glucose (UA) (Negative) Urine Ketones (Negative) Urine Blood (Negative) Ur Leukocyte Esterase (Negative) Urine RBC (0-5) /hpf Urine WBC (0-5) /hpf Urine WBC Clumps (None) /hpf Amorphous Sediment (None) /hpf Urine Bacteria (None) /hpf Hyaline Casts (0-2) /lpf Crossmatch See Detail 08/23/22 08/23/22 08/23/22 Range/Units 11:54 11:59 11:59 WBC 49.3 H (3.8-10.6) k/uL RBC (4.30-5.90) m/uL Hgb 10.6 L D (13.0-17.5) gm/dL Hct 34.1 L (39.0-53.0) % MCV 73.8 L (80.0-100.0) fL MCH 22.9 L (25.0-35.0) pg MCHC (31.0-37.0) g/dL RDW 16.0 H (11.5-15.5) % Plt Count (150-450) k/uL Neutrophils # (Manual) 42.40 H (1.3-7.7) k/uL Lymphocytes # (Manual) 0.49 L (1.0-4.8) k/uL Monocytes # (Manual) 6.41 H (0-1.0) k/uL Retic Count 3.9 H (0.5-2.0) % Sodium 135 L (137-145) mmol/L Chloride (98-107) mmol/L Carbon Dioxide (22-30) mmol/L BUN 30 H (9-20) mg/dL Creatinine 1.42 H (0.66-1.25) mg/dL Glucose 124 H (74-99) mg/dL Calcium 6.4 L* (8.4-10.2) mg/dL Magnesium (1.6-2.3) mg/dL Total Bilirubin 1.9 H (0.2-1.3) mg/dL Troponin I (0.000-0.034) ng/mL Total Protein 5.3 L (6.3-8.2) g/dL Albumin 3.0 L (3.5-5.0) g/dL Urine Protein 1+ H (Negative) Urine Glucose (UA) 4+ H (Negative) Urine Ketones 1+ H (Negative) Urine Blood Large H (Negative) Ur Leukocyte Esterase Trace H (Negative) Urine RBC >182 H (0-5) /hpf Urine WBC 52 H (0-5) /hpf Urine WBC Clumps Many H (None) /hpf Amorphous Sediment Moderate H (None) /hpf Urine Bacteria Few H (None) /hpf Hyaline Casts 9 H (0-2) /lpf Crossmatch 08/23/22 08/23/22 Range/Units 11:59 11:59 WBC (3.8-10.6) k/uL RBC (4.30-5.90) m/uL Hgb (13.0-17.5) gm/dL Hct (39.0-53.0) % MCV (80.0-100.0) fL MCH (25.0-35.0) pg MCHC (31.0-37.0) g/dL RDW (11.5-15.5) % Plt Count (150-450) k/uL Neutrophils # (Manual) (1.3-7.7) k/uL Lymphocytes # (Manual) (1.0-4.8) k/uL Monocytes # (Manual) (0-1.0) k/uL Retic Count (0.5-2.0) % Sodium (137-145) mmol/L Chloride (98-107) mmol/L Carbon Dioxide (22-30) mmol/L BUN (9-20) mg/dL Creatinine (0.66-1.25) mg/dL Glucose (74-99) mg/dL Calcium (8.4-10.2) mg/dL Magnesium (1.6-2.3) mg/dL Total Bilirubin 1.9 H (0.2-1.3) mg/dL Troponin I 0.092 H* (0.000-0.034) ng/mL Total Protein (6.3-8.2) g/dL Albumin (3.5-5.0) g/dL Urine Protein (Negative) Urine Glucose (UA) (Negative) Urine Ketones (Negative) Urine Blood (Negative) Ur Leukocyte Esterase (Negative) Urine RBC (0-5) /hpf Urine WBC (0-5) /hpf Urine WBC Clumps (None) /hpf Amorphous Sediment (None) /hpf Urine Bacteria (None) /hpf Hyaline Casts (0-2) /lpf Crossmatch Assessment and Plan (1) Leukocytosis Current Visit: Yes Status: Acute Priority: High Code(s): D72.829 - ELEVATED WHITE BLOOD CELL COUNT, UNSPECIFIED SNOMED Code(s): 644468773 (2) Anemia Current Visit: Yes Status: Acute Priority: High Code(s): D64.9 - ANEMIA, UNSPECIFIED SNOMED Code(s): 316420560 Plan: Anemia: -Hemoglobin 6.8 today, 2 units PRBCs ordered. -Anemia workup ordered. Hemolysis and DIC workup also ordered -Anemia likely related to LLE hematoma and recent evacuation. However, UA today also revealed RBCs, renal US ordered. -Will continue to monitor counts. CBC daily -Please transfuse for hemoglobin less than 7 or if symptomatic Leukoctyosis/cytopenia: -Consulted to r/o underlying MDS. WBC 23.26, ANC 18.6, lymphocytes 0.70, and eosinophils 0.0. However, leukocytosis has been noted in lab work since early 2020. WBC today was 49.3, which is substantially higher than yesterdays of 23.3. Platelets also have decreased over the last 24 hrs to 142,000. -ID following, blood cultures have been obtained. Urine sent for analysis, and pt started on empiric abx. -Elevation in counts today likely reactive related to acute inflammatory process and acute blood loss. However, due to long standing luekocytosis will further workup leukemoid reaction to r/o underlying bone marrow etiologies -Further workup will be pursued, as warranted by pending workup
[2022-08-23] MEDS: ATORVASTATIN 80 MG TAB PO SCH (20:19)
[2022-08-23] MEDS: traZODone HCL 100 MG TAB PO SCH (20:19)
[2022-08-23 20:50] LABS: % Iron Saturation 4.39 (15.00-50.00); Ferritin 86.9 ng/mL (22.0-322.0)
[2022-08-24] MEDS: ACETAMINOPHEN TAB 500 MG TAB PO PRN ×3 (02:37→17:44)
[2022-08-24] MEDS: NOREPINEPHRINE 4 MG in SODIUM CHLORIDE 0.9% 250 ML IV SCH ×2 (03:51→10:38)
[2022-08-24] MEDS: HYDROmorphone 0.5 MG/0.5 ML SYRINGE IVP PRN ×5 (05:33→22:04)
[2022-08-24] MEDS: LEVOTHYROXINE 88 MCG TAB PO SCH (06:04)
[2022-08-24 07:02] LABS: Anisocytosis Slight; Basophils # (A) 0.1 k/uL (0-0.2); Basophils % (A) 0 %; Eosinophils # (A) 0.1 k/uL (0-0.7); Eosinophils % (A) 0 %; Hypochromasia Marked; Lymphocytes # (A) 1.5 k/uL (1.0-4.8); Lymphocytes % (A) 5 %; MCH 23.2 pg (25.0-35.0); MCHC 31.1 g/dL (31.0-37.0); MCV 74.4 fL (80.0-100.0); Mean Platelet Volume 9.3; Microcytosis Slight; Monocytes # (A) 5.9 k/uL (0-1.0); Monocytes % (A) 19 %; Neutrophils # (A) 22.8 k/uL (1.3-7.7); Neutrophils % (A) 73 %; Platelet Count 232 k/uL (150-450); Poikilocytosis Slight; RDW 16.2 % (11.5-15.5); WBC 31.3 k/uL (3.8-10.6)
[2022-08-24 07:47] LABS: Magnesium 1.8 mg/dL (1.6-2.3); Potassium 3.6 mmol/L (3.5-5.1)
[2022-08-24 08:05] LABS: Calcium 5.8 mg/dL (8.4-10.2)
[2022-08-24] MEDS: PIPERACILLIN-TAZOBACTAM 3.375 GM in SODIUM CHLORIDE 0.9% 100 ML IVPB SCH ×2 (08:34→16:25)
[2022-08-24 08:43] LABS: Crenated RBC Present
[2022-08-24] MEDS: HYDROCORTISONE SUCCINATE 100 MG/2 ML VIAL IV SCH ×3 (09:43→18:40)
[2022-08-24] MEDS: VANCOMYCIN 1,250 MG in SODIUM CHLORIDE 0.9% 250 ML IVPB SCH (09:45)
[2022-08-24] MEDS: SODIUM CHLORIDE 0.9% 1,000 ML IV SCH ×2 (09:45→22:41)
--- NOTE | 2022-08-24 11:06 | P.PN ---
Subjective Progress Note Date: 08/24/22 This is a 77-year-old white male with history of multiple medical problems including chronic atrial fibrillation, maintained on a course, history of non- small cell lung cancer and previous left-sided pneumonectomy, history of tachybradycardia syndrome and previous pacemaker implantation, hypertension, hyp othyroidism, patient sustained a fall about 10 days ago, landed on his left side, and sustained swelling to the left lower extremity and to the left hip area. He came into the hospital on 08/21/2022,, complaining of pain in the left lower extremity, and he was found to have significant hematoma underwent evacuation of hematoma and washout of the left doherty. Yesterday, I was notified about this patient that he was found hypotensive, low hemoglobin, patient was confused, and did not improve with 2 L of fluids, hence we transfer the patient to the ICU. In the meantime I recommended a stat CBC and if hemoglobin below 7 to transfuse the patient with 2 units of blood, and start the patient on nor epinephrine after fluid boluses. Patient was seen in the ER today, he already received 1 unit of packed RBCs, and the second unit is pending. His hemoglobin was 6.8 earlier today. Patient is receiving fluids at 0.9 normal saline 75 mL per hour. He already received 2 fluid boluses of saline. Patient is requiring norepinephrine at 0.1 mcg/kg/m. He is on 2 L nasal cannula. His left lower extremity was evaluated, no significant hematoma is noted in the left lower extremity at the surgical site, however the patient does have significant swelling in the left hip area this was evaluated by orthopedics and he had trauma to the quadriceps muscles of the left hip with possible intramuscular hem orrhage. Eliquis remains on hold. Patient received another unit of packed RBCs shortly after I evaluated him, and repeat hemoglobin was 10.6. However the patient was noted to have significant leukocytosis/leukemoid reaction with WBC count of 49.3, however this leukemoid reaction-type of picture has been noted on previous admission on this patient with elevated WBC count as high as 45,000, oncology was consulted on this patient regarding his chronic and intermittent leukocytosis/leukemoid reaction. The patient is seen today 08/24/2022 in follow-up in the intensive care unit. He had undergone evacuation of a hematoma of his left lower extremity on 08/22/2022. He is currently sitting up in bed. Awake and alert in no acute distress. Maintaining O2 saturations in the 90s on room air. He is still requiring norepinephrine at 9 mcg/m. He has normal saline at 75 ML's per hour. White count 31.3. Hemoglobin 10.0. Platelets 232. Sodium 138. Potassium 3.6. Bicarb 20. BUN 28. Creatinine 1.23. Glucose 103. TSH 0.769. Cortisol level XXII. Urinalysis large amount of blood high WBCs and few bacteria. Culture pending. He remains on vancomycin and Zosyn. He will be initiated on Solu- Cortef 50 mg IV every 6 hours. Objective - Vital Signs Vital signs: Vital Signs Temp 97.4 F L 08/24/22 08:00 Pulse 63 08/24/22 10:00 Resp 18 08/24/22 10:00 BP 95/44 08/24/22 10:00 Pulse Ox 93 L 08/24/22 10:00 FiO2 Intake & Output 08/23/22 08/24/22 08/24/22 18:59 06:59 18:59 Intake Total 3334.348 9422.770 8751.619 Output Total 550 1075 Balance 2784.348 582.491 4725.619 Weight 76.8 kg Intake: IV 660 900 150 IV Fluid 660 900 150 Intake, IV Titration 1164.348 435.990 683.619 Amount Magnesium Sulfate-D5w Pmx 200 1 gm In Dextrose/Water 1 100ml.bag @ 100 mls/hr IVPB Q1H [facility] Rx#: [id number] Norepinephrine 4 mg In 439.348 435.990 133.619 Sodium Chloride 0.9% 250 ml @ 0.03 MCG/KG/MIN 7. 932 mls/hr IV .Q24H [facility] Rx#:[id number] Piperacillin-Tazobactam 3 200 100 .375 gm In Sodium Chloride 0.9% 100 ml @ 25 mls/hr IVPB Q8HR [facility] Rx# :[id number] Sodium Chloride 0.9% 1, 200 000 ml @ 100 mls/hr IV . Q10H [facility] Rx#:[id number] Sodium Chloride 0.9% 1, 75 000 ml @ 75 mls/hr IV . [id number] Rx#:[id number] Vancomycin 1,250 mg In 250 Sodium Chloride 0.9% 250 ml @ 125 mls/hr IVPB Q16H [facility] Rx#:[id number] Vancomycin 1,250 mg In 250 Sodium Chloride 0.9% 250 ml @ 125 mls/hr IVPB Q24H [facility] Rx#:[id number] Oral 840 240 Blood Product 620 Rc As-1 Unit 310 [id number] Rc As-1 Unit 310 [id number] Other 50 Rc As-1 Unit 50 [id number] Output: Urine 550 1075 Other: Voiding Method Urinal Urinal # Voids 0 - Exam Physical Exam: Revealed 77-year-old male, on 3 L nasal cannula, in no acute distress. Head: Atraumatic normocephalic. HEENT: PERRLA, EOMI, dry mucous membranes. Neck is supple. No neck masses. No thyromegaly. No JVD. Chest: Diminished breath sound on the left side, normal breath sounds on the right side. No rhonchi no wheezes. Cardiac Exam: Normal S1 and S2, 2/6 systolic murmur at the apex, no gallop, no rub Abdomen: Soft, nontender, no megaly, no rebound, no guarding, normal bowel sounds. Extremities: No clubbing, no edema, no cyanosis. Surgical dressing noted in the left calf region, related to recent evacuation of hematoma. No evidence of swelling or hematoma recurrence. There is however significant swelling noted over the left hip area laterally. Neurological Exam: Alert and oriented 3. No focal neurologic deficit. Psychiatric: Normal mood affect and normal mental status examination. Skin: No rashes. - Labs CBC & Chem 7: 08/24/22 06:04 08/24/22 06:04 Labs: Abnormal Lab Results - Last 24 Hours (Table) 08/22/22 08/23/22 08/23/22 Range/Units 07:08 11:54 11:59 WBC 49.3 H (3.8-10.6) k/uL Hgb 10.6 L D (13.0-17.5) gm/dL Hct 34.1 L (39.0-53.0) % MCV 73.8 L (80.0-100.0) fL MCH 22.9 L (25.0-35.0) pg RDW 16.0 H (11.5-15.5) % Neutrophils # (1.3-7.7) k/uL Neutrophils # (Manual) 42.40 H (1.3-7.7) k/uL Lymphocytes # (Manual) 0.49 L (1.0-4.8) k/uL Monocytes # (0-1.0) k/uL Monocytes # (Manual) 6.41 H (0-1.0) k/uL Retic Count 3.9 H (0.5-2.0) % Haptoglobin (31.2-198.0) mg/dL Sodium (137-145) mmol/L Chloride (98-107) mmol/L Carbon Dioxide (22-30) mmol/L BUN (9-20) mg/dL Creatinine (0.66-1.25) mg/dL Glucose (74-99) mg/dL Calcium (8.4-10.2) mg/dL Iron 15 L (65-175) ug/dL % Saturation 4.39 L (15.00-50.00) Total Bilirubin (0.2-1.3) mg/dL Lactate Dehydrogenase 420 H (120-246) U/L Troponin I (0.000-0.034) ng/mL Total Protein (6.3-8.2) g/dL Albumin (3.5-5.0) g/dL Vitamin B12 1857.0 H (200.0-944.0) pg/mL Urine Protein 1+ H (Negative) Urine Glucose (UA) 4+ H (Negative) Urine Ketones 1+ H (Negative) Urine Blood Large H (Negative) Ur Leukocyte Esterase Trace H (Negative) Urine RBC >182 H (0-5) /hpf Urine WBC 52 H (0-5) /hpf Urine WBC Clumps Many H (None) /hpf Amorphous Sediment Moderate H (None) /hpf Urine Bacteria Few H (None) /hpf Hyaline Casts 9 H (0-2) /lpf 08/23/22 08/23/22 08/23/22 Range/Units 11:59 11:59 11:59 WBC (3.8-10.6) k/uL Hgb (13.0-17.5) gm/dL Hct (39.0-53.0) % MCV (80.0-100.0) fL MCH (25.0-35.0) pg RDW (11.5-15.5) % Neutrophils # (1.3-7.7) k/uL Neutrophils # (Manual) (1.3-7.7) k/uL Lymphocytes # (Manual) (1.0-4.8) k/uL Monocytes # (0-1.0) k/uL Monocytes # (Manual) (0-1.0) k/uL Retic Count (0.5-2.0) % Haptoglobin 243.0 H (31.2-198.0) mg/dL Sodium 135 L (137-145) mmol/L Chloride (98-107) mmol/L Carbon Dioxide (22-30) mmol/L BUN 30 H (9-20) mg/dL Creatinine 1.42 H (0.66-1.25) mg/dL Glucose 124 H (74-99) mg/dL Calcium 6.4 L* (8.4-10.2) mg/dL Iron (65-175) ug/dL % Saturation (15.00-50.00) Total Bilirubin 1.9 H 1.9 H (0.2-1.3) mg/dL Lactate Dehydrogenase (120-246) U/L Troponin I (0.000-0.034) ng/mL Total Protein 5.3 L (6.3-8.2) g/dL Albumin 3.0 L (3.5-5.0) g/dL Vitamin B12 (200.0-944.0) pg/mL Urine Protein (Negative) Urine Glucose (UA) (Negative) Urine Ketones (Negative) Urine Blood (Negative) Ur Leukocyte Esterase (Negative) Urine RBC (0-5) /hpf Urine WBC (0-5) /hpf Urine WBC Clumps (None) /hpf Amorphous Sediment (None) /hpf Urine Bacteria (None) /hpf Hyaline Casts (0-2) /lpf 08/23/22 08/24/22 08/24/22 Range/Units 11:59 06:04 06:04 WBC 31.3 H (3.8-10.6) k/uL Hgb 10.0 L (13.0-17.5) gm/dL Hct 32.0 L (39.0-53.0) % MCV 74.4 L (80.0-100.0) fL MCH 23.2 L (25.0-35.0) pg RDW 16.2 H (11.5-15.5) % Neutrophils # 22.8 H (1.3-7.7) k/uL Neutrophils # (Manual) (1.3-7.7) k/uL Lymphocytes # (Manual) (1.0-4.8) k/uL Monocytes # 5.9 H (0-1.0) k/uL Monocytes # (Manual) (0-1.0) k/uL Retic Count (0.5-2.0) % Haptoglobin (31.2-198.0) mg/dL Sodium (137-145) mmol/L Chloride 111 H (98-107) mmol/L Carbon Dioxide 20 L (22-30) mmol/L BUN 28 H (9-20) mg/dL Creatinine (0.66-1.25) mg/dL Glucose 103 H (74-99) mg/dL Calcium 5.8 L* (8.4-10.2) mg/dL Iron (65-175) ug/dL % Saturation (15.00-50.00) Total Bilirubin (0.2-1.3) mg/dL Lactate Dehydrogenase (120-246) U/L Troponin I 0.092 H* (0.000-0.034) ng/mL Total Protein (6.3-8.2) g/dL Albumin (3.5-5.0) g/dL Vitamin B12 (200.0-944.0) pg/mL Urine Protein (Negative) Urine Glucose (UA) (Negative) Urine Ketones (Negative) Urine Blood (Negative) Ur Leukocyte Esterase (Negative) Urine RBC (0-5) /hpf Urine WBC (0-5) /hpf Urine WBC Clumps (None) /hpf Amorphous Sediment (None) /hpf Urine Bacteria (None) /hpf Hyaline Casts (0-2) /lpf Microbiology - Last 24 Hours (Table) 08/23/22 11:54 Urine Culture - Preliminary Urine,Voided Assessment and Plan Assessment: Acute blood loss anemia, suspect the 2 sources of bleeding are in the left calf region and in the left hip area, that is being addressed by orthopedics Left lower extremity hematoma being addressed by orthopedics, patient is status post evacuation of hematoma on 08/22/2022. Left hip trauma and intramuscular hemorrhage. Being addressed by orthopedics on the case. Patient should be monitored for other sources of bleeding including abdomen, pelvis, and GI. At this point he responded well to 2 units of packed RBCs, will continue to monitor for any further blood loss or drop in hemoglobin. Hypotension secondary to blood loss anemia and hypovolemia, definitely doubt sepsis as his presentation does not seem to be a septic presentation. History of pacemaker implantation for tachybradycardia syndrome. History of hypertension History of hypothyroidism History of non-small cell lung cancer and previous left-sided pneumonectomy in 2008 Ex-smoker Plan: The patient was seen and evaluated Labs and medications reviewed Add Solu-Cortef 50 mg IV every 6 hours Titrate down the norepinephrine as tolerated Check a pro-calcitonin Currently on vancomycin and Zosyn We'll continue to follow I have personally seen and examined the patient, performed the documentation and the assessment and plan as written. Number of minutes spent on the visit: 10.
--- NOTE | 2022-08-24 13:21 | P.PN ---
Subjective Progress Note Date: 08/24/22 Principal diagnosis: Status post left lower extremity hematoma evacuation Patient evaluated today, he is currently in the ICU. He is having minimal discomfort in the left lower extremity at this time. Objective - Vital Signs Vital signs: Vital Signs Temp 97.8 F 08/24/22 12:00 Pulse 81 08/24/22 13:00 Resp 16 08/24/22 13:00 BP 152/68 08/24/22 13:00 Pulse Ox 97 08/24/22 13:00 FiO2 Intake & Output 08/23/22 08/24/22 08/24/22 18:59 06:59 18:59 Intake Total 3334.348 9445.432 8987.604 Output Total 550 1075 Balance 2784.348 549.022 3156.604 Weight 76.8 kg Intake: IV 660 900 150 IV Fluid 660 900 150 Intake, IV Titration 1164.348 435.990 850.604 Amount Magnesium Sulfate-D5w Pmx 200 1 gm In Dextrose/Water 1 100ml.bag @ 100 mls/hr IVPB Q1H [facility] Rx#: [id number] Norepinephrine 4 mg In 439.348 435.990 200.604 Sodium Chloride 0.9% 250 ml @ 0.03 MCG/KG/MIN 7. 932 mls/hr IV .Q24H [facility] Rx#:[id number] Piperacillin-Tazobactam 3 200 100 .375 gm In Sodium Chloride 0.9% 100 ml @ 25 mls/hr IVPB Q8HR [facility] Rx# :[id number] Sodium Chloride 0.9% 1, 300 000 ml @ 100 mls/hr IV . Q10H [facility] Rx#:[id number] Sodium Chloride 0.9% 1, 75 000 ml @ 75 mls/hr IV . [id number] ONE Rx#:[id number] Vancomycin 1,250 mg In 250 Sodium Chloride 0.9% 250 ml @ 125 mls/hr IVPB Q16H [facility] Rx#:[id number] Vancomycin 1,250 mg In 250 Sodium Chloride 0.9% 250 ml @ 125 mls/hr IVPB Q24H [facility] Rx#:[id number] Oral 840 240 Blood Product 620 Rc As-1 Unit 310 [id number] Rc As-1 Unit 310 [id number] Other 50 Rc As-1 Unit 50 [id number] Output: Urine 550 1075 Other: Voiding Method Urinal Urinal # Voids 0 - Exam Left lower extremity: Dressing changed at bedside, sutures are all in good position, no active drainage. Generalized swelling in the extremity is present. Logroll maneuver the extremity reproduces no pain, tenderness with palpation of the knee, foot or ankle. Plantar flexion, dorsiflexion, EHL, FHL are intact. Sensory exam light touch is intact of the extremity, dorsalis pedis pulses 2+ - Labs CBC & Chem 7: 08/24/22 06:04 08/24/22 06:04 Labs: Abnormal Lab Results - Last 24 Hours (Table) 08/22/22 08/23/22 08/23/22 Range/Units 07:08 11:59 11:59 WBC (3.8-10.6) k/uL Hgb (13.0-17.5) gm/dL Hct (39.0-53.0) % MCV (80.0-100.0) fL MCH (25.0-35.0) pg RDW (11.5-15.5) % Neutrophils # (1.3-7.7) k/uL Neutrophils # (Manual) 42.40 H (1.3-7.7) k/uL Lymphocytes # (Manual) 0.49 L (1.0-4.8) k/uL Monocytes # (0-1.0) k/uL Monocytes # (Manual) 6.41 H (0-1.0) k/uL Retic Count 3.9 H (0.5-2.0) % Haptoglobin 243.0 H (31.2-198.0) mg/dL Chloride (98-107) mmol/L Carbon Dioxide (22-30) mmol/L BUN (9-20) mg/dL Glucose (74-99) mg/dL Calcium (8.4-10.2) mg/dL Iron 15 L (65-175) ug/dL % Saturation 4.39 L (15.00-50.00) Lactate Dehydrogenase 420 H (120-246) U/L Vitamin B12 1857.0 H (200.0-944.0) pg/mL 08/24/22 08/24/22 Range/Units 06:04 06:04 WBC 31.3 H (3.8-10.6) k/uL Hgb 10.0 L (13.0-17.5) gm/dL Hct 32.0 L (39.0-53.0) % MCV 74.4 L (80.0-100.0) fL MCH 23.2 L (25.0-35.0) pg RDW 16.2 H (11.5-15.5) % Neutrophils # 22.8 H (1.3-7.7) k/uL Neutrophils # (Manual) (1.3-7.7) k/uL Lymphocytes # (Manual) (1.0-4.8) k/uL Monocytes # 5.9 H (0-1.0) k/uL Monocytes # (Manual) (0-1.0) k/uL Retic Count (0.5-2.0) % Haptoglobin (31.2-198.0) mg/dL Chloride 111 H (98-107) mmol/L Carbon Dioxide 20 L (22-30) mmol/L BUN 28 H (9-20) mg/dL Glucose 103 H (74-99) mg/dL Calcium 5.8 L* (8.4-10.2) mg/dL Iron (65-175) ug/dL % Saturation (15.00-50.00) Lactate Dehydrogenase (120-246) U/L Vitamin B12 (200.0-944.0) pg/mL Microbiology - Last 24 Hours (Table) 08/23/22 11:54 Urine Culture - Final Urine,Voided Assessment and Plan Assessment: Postoperative day #2 status post left lower extremity hematoma evacuation Hypotensive Anemia Other medical comorbidities Plan: Monitor dressing, ice and elevate the extremity Orthopedically patient can weight-bear as tolerated on the left lower extremity, recommend use of walker GI and DVT prophylaxis per primary medical service Other biomedical photographer recommendations appreciated We will continue to follow during hospital stay Time with Patient: Less than 30
--- NOTE | 2022-08-24 13:45 | CA ---
Transthoracic Echo Report Name: Cuauhtemoc Boone Age: 77 Gender: M : 1945 Exam Date: 08/24/2022 10:39 Exam Location: [place] [facility] Ht (in): 70 Wt (lb): 169 Ordering Physician: Jl Uriarte MD ([id number]) Attending/Referring Phys: Template Checker Analia Sanchez RDCS Procedure CPT: Indications: LV function Cardiac Hx: Technical Quality: Fair Contrast 1: Total Dose (mL): Contrast 2: Total Dose (mL): MEASUREMENTS (Male / Female) Normal Values FINDINGS Left Ventricle Left ventricular ejection fraction is estimated at 55- 60 %. Right Ventricle Right Atrium Left Atrium Mitral Valve Moderate mitral annular calcification. Mild mitral regurgitation. Aortic Valve Tricuspid Valve Pulmonic Valve Pericardium Aorta CONCLUSIONS 1. Normal ventricle systolic function 2. Mild mitral regurgitation 3. Limited study Previewed by: Dr. Markus Bojorquez MD (Electronically Signed) Final Date: 24 August 2022 13:44
--- NOTE | 2022-08-24 14:24 | P.PN ---
Subjective Progress Note Date: 08/24/22 HISTORY OF PRESENT ILLNESS: This is a 77-year-old male patient of [facility] with past medical history of non-small cell lung cancer diagnosed in 2009 status post lobectomy, remote history of tobacco use, remote history of alcohol abuse, alcoholic peripheral neuropathy, hypertension, coronary artery disease, paroxysmal atrial fibrillation, hypothyroidism, patient was getting out of his urologist office after a biopsy done with Dr. Avery last Wednesday and on his way down using his walker he fell down and he landed on his left lower extremity, patient got helped into the car and he went home and he did not have any contact with any physician he did not call my office he was supposed, seen in the office however he did not show up, patient sister brought him into the office yesterday with intractable pain and left hip as well as left lower extremity he did appear to have a significant swelling of the left hip area as well as significant hematoma to the left doherty, patient was not able to be ready within the left lower extremity EMS was called and the patient was transported to the emergency department at [facility] initial x-rays did not show evidence of acute fracture only soft tissue swelling he ended up going for a computed tomography scan of the hip that did show evidence of hematoma of the quadriceps muscles with soft tissue edema along with significant hematoma the left lower extremity without evidence of any fracture admitted show evidence of bilateral hip past arthritis, patient was started on IV pain management in the form of Dilaudid 0.5 mg 1 mg IV push every 3 hours as needed for pain control, orthopedic consultation was obtained for possible I&D of the hematoma the left lower extremity. 08/23: Patient underwent an I&D of the left leg hematoma by Dr. Schultz, patient went to the floor, patient developed to have a significant hypotensive episode, his blood pressure was 60/40 patient was given 2 L of IV fluid, repeated stat CBC showed a hemoglobin of 6.2, patient was transferred her to the ICU, he was started on Levothroid, he was given 2 units of packed red blood cells, and the patient was seen today he was sitting up in bed he is denying any chest pain at this time, he developed to have a significant chest pain yes terday, his EKG showed paced rhythm, he was seen in consultation by cardiology who recommended to hold antihypertensive medication as well as to hold anticoagulation, and monitor the patient very closely, patient also has been following with pulmonary/critical care, we will continue to monitor the patient ICU, patient prognosis is guarded. Patient will require physical therapy rehabilitation. 08/24: Patient remains in the intensive care unit. He is postop day #2 following I&D of the left leg hematoma. Hemoglobin is 10, WBC 31.3. Potassium 3.6, BUN 28 creatinine 1.23. Sodium 138. Calcium 5.8. Magnesium 1.8. Urine culture is in progress. He is status post total of 2 units of packed RBCs.. He is maintained on IV antibiotics in the form of Zosyn and vancomycin. Renal ultrasound revealed no hydronephrosis. Underlying chronic medical renal disease. Prostatomegaly of 5.6 cm.. REVIEW OF SYSTEMS: Constitutional: No documented fever, no chills, no night sweats. No weight change. No weakness, fatigue or lethargy. No daytime sleepiness. HEENT: No headache. No blurred vision or double vision, no loss of vision. very hard of Hearing, no ringing in the ears, no dizziness. No nasal drainage or congestion. No epistaxis. No sore throat. Lungs: No shortness of breath, no cough, no sputum production. no wheezing. Cardiovascular: No chest pain, positive for lower extremity edema. No palpitations. No paroxysmal nocturnal dyspnea. No orthopnea. No lightheadedness or dizziness. Reports syncopal episodes. Abdominal: Reports no abdominal pain. No nausea, vomiting. No diarrhea. No constipation. No bloody or tarry stools reports loss of appetite. Genitourinary: No dysuria, increased frequency, urgency. No urinary retention. Musculoskeletal: positive for myalgias. positive for left muscle weakness, positive for gait dysfunction, positive for frequent falls, positive for back pain and neck pain along with left hip and leg pain Integumentary: Surgical wound left leg, no lesions. No rash or pruritus. positive for hematoma to the left leg with significant bruising Neurologic: No aphasia. No facial droop. No change in mentation. No head injury. No headache. No paralysis. No paresthesia. Psychiatric: positive for depression, positive for anxiety. No mood swings. Endocrine: No abnormal blood sugars. No weight change. PHYSICAL EXAMINATION: General: This is a 77-year-old male resting in bed in minima distress HEENT: Head is atraumatic, normocephalic, pupils were equal round reactive to light and recommendation, extraocular muscle movement were intact, sclera nonicteric, conjunctivae were pale, mucous membranes of the mouth are somewhat dry. Neck: Supple, no JVP, normal carotid upstroke bilaterally, no lymphadenopathy. Chest: Decreased breath sounds at the bases, no wheezes, no chest wall tenderness, no intercostal retractions. Heart: First heart sound is normal, second heart sounds normal, systolic ejection murmur 2/6 located at the left sternal border, ppm Abdomen: Soft, nontender, nondistended, positive bowel sounds. Extremities: There is +2 edema no calf tenderness DP +1 bilaterally, there is edema to the left hip and significant tenderness to the left hip and dressing to the left lower extremity. Neurologic examination: Patient is awake alert and oriented 3, cranial nerves II-12 appear grossly intact, muscle power were 4 out of 5 in upper extremities and 2 out of 5 in bilateral lower extremities, deep tendon reflexes normal bilaterally. ASSESSMENT AND PLAN: 1. Postoperative day #2 status post incision and drainage of left leg hematoma. Continue current pain management, monitor the patient very closely, orthopedic is following. Physical therapy evaluation. 2. Hypovolemic shock due to acute blood loss anemia. Patient did receive 2 units of packed red blood cells, continue IV fluid, monitor the patient input and output and daily weight, monitor the patient's CBC, continue patient on Levophed, wean as indicated keep his mean arterial pressure greater than 65 3. chest pain likely related to hypovolemic shock and acute blood loss anemia. Status post 2 units of packed cells, echogram was done, hold on taking vision, continue pressors, cardiac consultation appreciated. 4. Leukocytosis with microcytosis and from cytopenia rule out myeloproliferative disorder/myelodysplasia. Check iron, TIBC, ferritin, B12, folic acid, reticulocyte count, LDH, haptoglobin, free light chain protein in the serum and urine [place] and Lambda , serum protein electrophoresis, hematology consultation. 5. History of non-small cell lung cancer in 2009 status post left pneumonectomy. 6. Hypertension and hypertensive cardiovascular disease . Currently hypotensive discontinue losartan and metoprolol. 7. Chronic diastolic heart failure. We will continue to hold all oral medications. 8. Paroxysmal atrial fibrillation. we will hold off Eliquis 9. History of sick sinus syndrome status post pacemaker implantation, stable. 10. Alcoholic peripheral neuropathy. stable. 11. Hypothyroidism. Continue levothyroxine 88 g daily. 12. GI prophylaxis. Protonix 40 mg daily. 13. DVT prophylaxis. we will hold off Eliquis for now. 14. PT OT evaluation as well as social services aide consultation for discharge planning. Impression and plan of care have been directed as dictated by the signing physician. Jada Burr nurse practitioner acting as scribe for signing physician. Objective - Vital Signs Vital signs: Vital Signs Temp 97.4 F L 08/24/22 08:00 Pulse 63 08/24/22 10:00 Resp 18 08/24/22 10:00 BP 95/44 08/24/22 10:00 Pulse Ox 93 L 08/24/22 10:00 FiO2 Intake & Output 08/23/22 08/24/22 08/24/22 18:59 06:59 18:59 Intake Total 3334.348 2959.964 6975.325 Output Total 550 1075 Balance 2784.348 899.002 8963.325 Weight 76.8 kg Intake: IV 660 900 150 IV Fluid 660 900 150 Intake, IV Titration 1164.348 435.990 629.325 Amount Magnesium Sulfate-D5w Pmx 200 1 gm In Dextrose/Water 1 100ml.bag @ 100 mls/hr IVPB Q1H [facility] Rx#: [id number] Norepinephrine 4 mg In 439.348 435.990 79.325 Sodium Chloride 0.9% 250 ml @ 0.03 MCG/KG/MIN 7. 932 mls/hr IV .Q24H [facility] Rx#:[id number] Piperacillin-Tazobactam 3 200 100 .375 gm In Sodium Chloride 0.9% 100 ml @ 25 mls/hr IVPB Q8HR [facility] Rx# :[id number] Sodium Chloride 0.9% 1, 200 000 ml @ 100 mls/hr IV . Q10H [facility] Rx#:[id number] Sodium Chloride 0.9% 1, 75 000 ml @ 75 mls/hr IV . [id number] [facility] Rx#:[id number] Vancomycin 1,250 mg In 250 Sodium Chloride 0.9% 250 ml @ 125 mls/hr IVPB Q16H [facility] Rx#:[id number] Vancomycin 1,250 mg In 250 Sodium Chloride 0.9% 250 ml @ 125 mls/hr IVPB Q24H [facility] Rx#:[id number] Oral 840 240 Blood Product 620 Rc As-1 Unit 310 [id number] Rc As-1 Unit 310 [id number] Other 50 Rc As-1 Unit 50 [id number] Output: Urine 550 1075 Other: Voiding Method Urinal Urinal # Voids 0 - Labs CBC & Chem 7: 08/24/22 06:04 08/24/22 06:04 Labs: Abnormal Lab Results - Last 24 Hours (Table) 08/22/22 08/23/22 08/23/22 Range/Units 07:08 11:54 11:59 WBC 49.3 H (3.8-10.6) k/uL Hgb 10.6 L D (13.0-17.5) gm/dL Hct 34.1 L (39.0-53.0) % MCV 73.8 L (80.0-100.0) fL MCH 22.9 L (25.0-35.0) pg RDW 16.0 H (11.5-15.5) % Neutrophils # (1.3-7.7) k/uL Neutrophils # (Manual) 42.40 H (1.3-7.7) k/uL Lymphocytes # (Manual) 0.49 L (1.0-4.8) k/uL Monocytes # (0-1.0) k/uL Monocytes # (Manual) 6.41 H (0-1.0) k/uL Retic Count 3.9 H (0.5-2.0) % Haptoglobin (31.2-198.0) mg/dL Sodium (137-145) mmol/L Chloride (98-107) mmol/L Carbon Dioxide (22-30) mmol/L BUN (9-20) mg/dL Creatinine (0.66-1.25) mg/dL Glucose (74-99) mg/dL Calcium (8.4-10.2) mg/dL Iron 15 L (65-175) ug/dL % Saturation 4.39 L (15.00-50.00) Total Bilirubin (0.2-1.3) mg/dL Lactate Dehydrogenase 420 H (120-246) U/L Troponin I (0.000-0.034) ng/mL Total Protein (6.3-8.2) g/dL Albumin (3.5-5.0) g/dL Vitamin B12 1857.0 H (200.0-944.0) pg/mL Urine Protein 1+ H (Negative) Urine Glucose (UA) 4+ H (Negative) Urine Ketones 1+ H (Negative) Urine Blood Large H (Negative) Ur Leukocyte Esterase Trace H (Negative) Urine RBC >182 H (0-5) /hpf Urine WBC 52 H (0-5) /hpf Urine WBC Clumps Many H (None) /hpf Amorphous Sediment Moderate H (None) /hpf Urine Bacteria Few H (None) /hpf Hyaline Casts 9 H (0-2) /lpf 08/23/22 08/23/22 08/23/22 Range/Units 11:59 11:59 11:59 WBC (3.8-10.6) k/uL Hgb (13.0-17.5) gm/dL Hct (39.0-53.0) % MCV (80.0-100.0) fL MCH (25.0-35.0) pg RDW (11.5-15.5) % Neutrophils # (1.3-7.7) k/uL Neutrophils # (Manual) (1.3-7.7) k/uL Lymphocytes # (Manual) (1.0-4.8) k/uL Monocytes # (0-1.0) k/uL Monocytes # (Manual) (0-1.0) k/uL Retic Count (0.5-2.0) % Haptoglobin 243.0 H (31.2-198.0) mg/dL Sodium 135 L (137-145) mmol/L Chloride (98-107) mmol/L Carbon Dioxide (22-30) mmol/L BUN 30 H (9-20) mg/dL Creatinine 1.42 H (0.66-1.25) mg/dL Glucose 124 H (74-99) mg/dL Calcium 6.4 L* (8.4-10.2) mg/dL Iron (65-175) ug/dL % Saturation (15.00-50.00) Total Bilirubin 1.9 H 1.9 H (0.2-1.3) mg/dL Lactate Dehydrogenase (120-246) U/L Troponin I (0.000-0.034) ng/mL Total Protein 5.3 L (6.3-8.2) g/dL Albumin 3.0 L (3.5-5.0) g/dL Vitamin B12 (200.0-944.0) pg/mL Urine Protein (Negative) Urine Glucose (UA) (Negative) Urine Ketones (Negative) Urine Blood (Negative) Ur Leukocyte Esterase (Negative) Urine RBC (0-5) /hpf Urine WBC (0-5) /hpf Urine WBC Clumps (None) /hpf Amorphous Sediment (None) /hpf Urine Bacteria (None) /hpf Hyaline Casts (0-2) /lpf 08/23/22 08/24/22 08/24/22 Range/Units 11:59 06:04 06:04 WBC 31.3 H (3.8-10.6) k/uL Hgb 10.0 L (13.0-17.5) gm/dL Hct 32.0 L (39.0-53.0) % MCV 74.4 L (80.0-100.0) fL MCH 23.2 L (25.0-35.0) pg RDW 16.2 H (11.5-15.5) % Neutrophils # 22.8 H (1.3-7.7) k/uL Neutrophils # (Manual) (1.3-7.7) k/uL Lymphocytes # (Manual) (1.0-4.8) k/uL Monocytes # 5.9 H (0-1.0) k/uL Monocytes # (Manual) (0-1.0) k/uL Retic Count (0.5-2.0) % Haptoglobin (31.2-198.0) mg/dL Sodium (137-145) mmol/L Chloride 111 H (98-107) mmol/L Carbon Dioxide 20 L (22-30) mmol/L BUN 28 H (9-20) mg/dL Creatinine (0.66-1.25) mg/dL Glucose 103 H (74-99) mg/dL Calcium 5.8 L* (8.4-10.2) mg/dL Iron (65-175) ug/dL % Saturation (15.00-50.00) Total Bilirubin (0.2-1.3) mg/dL Lactate Dehydrogenase (120-246) U/L Troponin I 0.092 H* (0.000-0.034) ng/mL Total Protein (6.3-8.2) g/dL Albumin (3.5-5.0) g/dL Vitamin B12 (200.0-944.0) pg/mL Urine Protein (Negative) Urine Glucose (UA) (Negative) Urine Ketones (Negative) Urine Blood (Negative) Ur Leukocyte Esterase (Negative) Urine RBC (0-5) /hpf Urine WBC (0-5) /hpf Urine WBC Clumps (None) /hpf Amorphous Sediment (None) /hpf Urine Bacteria (None) /hpf Hyaline Casts (0-2) /lpf Microbiology - Last 24 Hours (Table) 08/23/22 11:54 Urine Culture - Preliminary Urine,Voided
--- NOTE | 2022-08-24 15:47 | PN ---
PROGRESS NOTE SUBJECTIVE: Mr. Boone had evacuation of the hematoma of his leg. He still is quite hypotensive requiring high doses of Levophed. He is reasonably more comfortable, however. Troponin is elevated, but this could be due to his episode of hypotension that he had following the evacuation of the hematoma. Vitals are stable on a high dose of Levophed, which is being weaned. The patient is in atrial fibrillation. Rate control is fairly decent. Eliquis is being held given his active bleeding. Plan is to continue to cautiously administer IV fluid and continue the weaning efforts. OBJECTIVE: VITAL SIGNS: Stable on Levophed. HEART: S1 and S2 heard normally with ejection systolic murmur at the left lower sternal border. LUNGS: Reveal bilateral decent air entry. ABDOMEN: Soft. EXTREMITIES: Lower extremities reveal diminished pulses. CENTRAL NERVOUS SYSTEM: Grossly, no focal deficits. IMPRESSION: 1. History of atrial fibrillation with underlying pacemaker for tachy-arabella. 2. Left leg hematoma evacuation, status post hypotension. 3. Hypotension secondary to blood loss. Blood pressure seems to be better now. We will continue Levophed support. 4. History of [id number] cancer in 2008, followed by pneumonectomy. 5. Hypertension. RECOMMENDATIONS: We will continue IV fluids and continue working with weaning of Levophed. Prognosis remains guarded. MMODL / IJN: [id number] /
[2022-08-24 16:09] LABS: Protein, Total 4.7 g/dL (6.2-8.2)
--- NOTE | 2022-08-24 22:01 | P.CONS ---
History of Present Illness - Reason for Consult Consult date: 08/24/22 sepsis Requesting physician: Nat Oglesby - Chief Complaint Weakness increasing swelling to the left leg x days - History of Present Illness Patient is a 77-year male with multiple comorbidities including non- small cell lung cancer s/p lobectomy hypertension coronary disease paroxysmal atrial fibrillation patient recently did have a prostate biopsy done at his ologist office on the way out of the office the patient did fell down and landed on his left lower extremity patient subsequently did well at home and on a follow-up visit with the primary care physician patient was noticed to have a significant hematoma and pain to the left lower extremity for the patient was sent to the ER on arrival to the ER the patient did have a x-rays which did show soft tissue swelling but no fracture he did have a CT of the left hip and lower extremity did show significant hematoma of the quadricep muscle and hematoma left lower extremity patient subsequently was evaluated by orthopedics and the patient is status post surgical drainage of hematoma to the left lower extremity yesterday patient was noticed to have significant hypotension also noted his hemoglobin was down to 6.2 for the patient was transferred to the ICU he is status post 2 units of packed RBC also noted to have elevated white count patient was empirically started on vancomycin and Zosyn infectious disease consulted for further management of antibiotic therapy at the time of evaluation the patient is afebrile patient is currently breathing comfortably on 2 L nasal cannula still requiring low-dose pressor support patient white count which was 49.3 yesterday is down to 31.3 today he did have elevated BUN and creatinine has been normal troponin was mildly elevated urine did shows mostly hematuria along some pyuria blood and urine cultures currently pending, patient currently denies having any chest pain complaining of some shortness of breath occasional cough but no sputum production no nausea no vomiting no abdominal pain no diarrhea pain to left lower extremity is mostly dull aching 3-4 out of 10 head no radiation had no drainage of the dressing has been noticed Review of Systems Positive point has been mentioned in the HPI rest of the systems are negative Past Medical History Past Medical History: Coronary Artery Disease (CAD), Hypertension, Thyroid Disorder Additional Past Medical History / Comment(s): vertigo Last Myocardial Infarction Date:: 2013 History of Any Multi-Drug Resistant Organisms: None Reported Past Surgical History: Hernia Repair, Pacemaker Additional Past Surgical History / Comment(s): Left lung removed Past Anesthesia/Blood Transfusion Reactions: No Reported Reaction Type of Cardiac Device: Unknown Device Placement Date:: June, Past Psychological History: No Psychological Hx Reported Additional Psychological History / Comment(s): Pt resides alone in an apartment. He is independent. Smoking Status: Never smoker Past Alcohol Use History: None Reported Additional Past Alcohol Use History / Comment(s): Pt started smoking in 1959 and quit in 2008. Pt was a heavy drinker/quit in 2008 Past Drug Use History: None Reported - Past Family History Father Family Medical History: Memory Impairment Additional Family Medical History / Comment(s): Father at age 71 from a myocardial infarction. Mother Family Medical History: No Reported History Additional Family Medical History / Comment(s): Mother at age 92 from old age. Brother(s) Additional Family Medical History / Comment(s): Patient has 3 brothers alive with no major medical problems. One brother is dying from stomach cancer. Sister(s) Additional Family Medical History / Comment(s): Patient has one sister and she is alive. History of hypertension and hyperlipidemia. Medications and Allergies Home Medications Medication Instructions Recorded Confirmed Type Atorvastatin [Lipitor] 80 mg PO HS 06/11/20 08/21/22 History Magnesium Oxide 400 mg PO DAILY PRN 12/23/20 08/21/22 History Apixaban [Eliquis] 5 mg PO BID #60 tab 10/22/21 08/21/22 Rx Empagliflozin [Jardiance] 10 mg PO DAILY 08/21/22 08/21/22 History Ipratropium-Albuterol Nebulize 3 ml INHALATION RT-QID PRN 08/21/22 08/21/22 History [Duoneb 0.5 mg-3 mg/3 ml Soln] Levothyroxine Sodium [Synthroid] 88 mcg PO DAILY 08/21/22 08/21/22 History traZODone HCL [Desyrel] 100 mg PO HS 08/21/22 08/21/22 History Bumetanide [BUMEX] 1 mg PO DAILY #0 08/26/22 08/21/22 Rx Losartan [Cozaar] 25 mg PO HS #30 tab 08/26/22 Rx Metoprolol Tartrate [Lopressor] 25 mg PO BID #60 tab 08/26/22 Rx cefUROXime axetiL [Ceftin] 500 mg PO BID 7 Days #14 tab 08/26/22 Rx Allergies Allergy/AdvReac Type Severity Reaction Status Date / Time No Known Allergies Allergy Verified 08/21/22 13:33 Physical Exam Vitals: Vital Signs Temp Pulse Resp BP Pulse Ox 08/24/22 11:00 60 14 97/47 93 L 08/24/22 10:45 60 20 92/45 93 L 08/24/22 10:30 59 L 18 94/49 93 L 08/24/22 10:15 60 16 91/48 93 L 08/24/22 10:00 63 18 95/44 93 L 08/24/22 09:45 64 18 91/42 91 L 08/24/22 09:30 60 16 116/52 91 L 08/24/22 09:15 61 14 110/61 90 L 08/24/22 09:00 65 16 113/60 92 L 08/24/22 08:45 66 18 116/50 92 L 08/24/22 08:30 65 20 110/46 92 L 08/24/22 08:15 61 17 110/49 93 L 08/24/22 08:00 97.4 F L 65 16 104/51 93 L 08/24/22 07:45 68 18 117/52 92 L 08/24/22 07:30 65 16 103/55 92 L 08/24/22 07:00 87 23 114/55 91 L 08/24/22 06:45 70 19 106/47 93 L 08/24/22 06:30 59 L 14 108/48 08/24/22 06:15 61 22 125/66 95 08/24/22 06:00 63 11 L 121/51 94 L 08/24/22 05:45 62 14 118/56 08/24/22 05:30 75 18 117/52 95 08/24/22 05:15 60 17 107/47 95 08/24/22 05:00 61 15 113/47 95 08/24/22 04:45 59 L 15 110/47 96 08/24/22 04:30 60 16 107/47 95 08/24/22 04:15 60 16 119/63 94 L 08/24/22 04:00 97.8 F 62 16 103/45 94 L 08/24/22 03:45 75 15 110/46 94 L 08/24/22 03:30 60 18 115/46 95 08/24/22 03:15 60 14 113/49 94 L 08/24/22 03:00 59 L 13 116/49 90 L 08/24/22 02:45 63 15 96/49 94 L 08/24/22 02:30 75 20 107/47 91 L 08/24/22 02:15 59 L 14 131/50 94 L 08/24/22 02:00 59 L 17 106/46 95 08/24/22 01:45 59 L 14 115/46 95 08/24/22 01:30 59 L 17 114/46 96 08/24/22 01:15 60 15 113/52 96 08/24/22 01:00 60 12 126/69 95 08/24/22 00:45 81 21 102/44 96 08/24/22 00:30 60 14 109/48 96 08/24/22 00:15 59 L 13 115/48 97 08/24/22 00:03 60 15 115/48 96 08/24/22 00:00 98.1 F 61 17 113/46 96 08/23/22 23:45 61 16 117/55 94 L 08/23/22 23:30 58 L 14 84/42 08/23/22 23:15 59 L 14 87/41 92 L 08/23/22 23:00 59 L 14 93/41 91 L 08/23/22 22:45 60 15 127/79 08/23/22 22:30 86 20 105/43 93 L 08/23/22 22:15 59 L 19 101/43 93 L 08/23/22 22:00 58 L 14 92/40 95 08/23/22 21:45 59 L 15 97/44 96 08/23/22 21:30 60 14 78/40 96 08/23/22 21:15 59 L 13 82/41 91 L 08/23/22 21:00 59 L 12 83/43 08/23/22 20:45 59 L 24 100/44 08/23/22 20:30 64 18 99/44 08/23/22 20:15 61 18 101/52 92 L 08/23/22 20:00 98.6 F 76 12 91/50 90 L 08/23/22 19:45 61 18 99/49 92 L 08/23/22 19:30 67 22 90/31 93 L 08/23/22 19:15 64 17 88/44 92 L 08/23/22 19:00 62 20 92/44 91 L 08/23/22 18:45 63 24 92/48 91 L 08/23/22 18:30 66 19 93/51 94 L 08/23/22 18:15 60 13 93/44 08/23/22 18:00 61 16 93/46 92 L 08/23/22 17:45 61 18 98/43 93 L 08/23/22 17:30 63 17 110/48 93 L 08/23/22 17:15 63 20 81/47 93 L 08/23/22 17:00 65 18 101/59 90 L 08/23/22 16:45 61 18 122/62 93 L 08/23/22 16:30 72 24 101/48 91 L 08/23/22 16:15 61 17 108/51 93 L 08/23/22 16:00 98.4 F 62 16 106/68 96 08/23/22 15:45 63 18 97/43 95 08/23/22 15:30 60 18 112/51 96 08/23/22 15:15 64 14 92/41 95 08/23/22 15:00 60 18 101/46 95 08/23/22 14:45 73 18 90/48 94 L 08/23/22 14:30 66 17 88/51 95 08/23/22 14:15 58 L 19 85/43 95 08/23/22 14:00 60 20 84/41 95 08/23/22 13:45 61 20 82/39 95 08/23/22 13:30 61 17 84/49 94 L 08/23/22 13:15 75 21 98/65 94 L 08/23/22 13:00 71 25 H 107/55 95 08/23/22 12:45 69 21 117/62 95 08/23/22 12:30 69 21 111/66 94 L 08/23/22 12:15 76 24 120/59 94 L 08/23/22 12:00 98 F 82 18 115/59 94 L 08/23/22 11:45 76 16 96/48 96 Intake and Output 08/23/22 08/24/22 08/24/22 22:59 06:59 14:59 Intake Total 1457.509 866.939 0977.619 Output Total 150 1075 Balance 1307.509 -028.819 7807.619 Intake: IV 600 600 150 IV Fluid 600 600 150 Intake, IV Titration 497.509 334.778 783.619 Amount Norepinephrine 4 mg In 272.509 334.778 133.619 Sodium Chloride 0.9% 250 ml @ 0.03 MCG/KG/MIN 7. 932 mls/hr IV .Q24H [facility] Rx#:[id number] Piperacillin-Tazobactam 3 100 100 .375 gm In Sodium Chloride 0.9% 100 ml @ 25 mls/hr IVPB Q8HR [facility] Rx# :[id number] Sodium Chloride 0.9% 1, 300 000 ml @ 100 mls/hr IV . Q10H [facility] Rx#:[id number] Vancomycin 1,250 mg In 250 Sodium Chloride 0.9% 250 ml @ 125 mls/hr IVPB Q16H [facility] Rx#:[id number] Vancomycin 1,250 mg In 125 Sodium Chloride 0.9% 250 ml @ 125 mls/hr IVPB Q24H [facility] Rx#:[id number] Oral 360 240 Output: Urine 150 1075 Other: Voiding Method Urinal Urinal Weight 76.8 kg GENERAL DESCRIPTION: Elderly male lying in bed, no distress. No tachypnea or accessory muscle of respiration use. HEENT: Shows Pallor , no scleral icterus. Oral mucous membrane is dry. No pharyngeal erythema or thrush NECK: Trachea central, no thyromegaly. LUNGS: Unlabored breathing. Decreased breath sounds at bases No wheeze or crackle. HEART: S1, S2, regular rate and rhythm. No loud murmur ABDOMEN: Soft, no tenderness , guarding or rigidity, no organomegaly EXTREMITIES: Left leg wound is currently dressed no drainage from the dressing SKIN: No rash, no masses palpable. NEUROLOGICAL: The patient is awake, alert, oriented x3, mood and affect normal. Results CBC & Chem 7: 08/28/22 07:49 08/28/22 07:49 Labs: Abnormal Lab Results - Last 24 Hours (Table) 08/22/22 08/23/22 08/23/22 Range/Units 07:08 11:54 11:59 WBC 49.3 H (3.8-10.6) k/uL Hgb 10.6 L D (13.0-17.5) gm/dL Hct 34.1 L (39.0-53.0) % MCV 73.8 L (80.0-100.0) fL MCH 22.9 L (25.0-35.0) pg RDW 16.0 H (11.5-15.5) % Neutrophils # (1.3-7.7) k/uL Neutrophils # (Manual) 42.40 H (1.3-7.7) k/uL Lymphocytes # (Manual) 0.49 L (1.0-4.8) k/uL Monocytes # (0-1.0) k/uL Monocytes # (Manual) 6.41 H (0-1.0) k/uL Retic Count 3.9 H (0.5-2.0) % Haptoglobin (31.2-198.0) mg/dL Sodium (137-145) mmol/L Chloride (98-107) mmol/L Carbon Dioxide (22-30) mmol/L BUN (9-20) mg/dL Creatinine (0.66-1.25) mg/dL Glucose (74-99) mg/dL Calcium (8.4-10.2) mg/dL Iron 15 L (65-175) ug/dL % Saturation 4.39 L (15.00-50.00) Total Bilirubin (0.2-1.3) mg/dL Lactate Dehydrogenase 420 H (120-246) U/L Troponin I (0.000-0.034) ng/mL Total Protein (6.3-8.2) g/dL Albumin (3.5-5.0) g/dL Vitamin B12 1857.0 H (200.0-944.0) pg/mL Urine Protein 1+ H (Negative) Urine Glucose (UA) 4+ H (Negative) Urine Ketones 1+ H (Negative) Urine Blood Large H (Negative) Ur Leukocyte Esterase Trace H (Negative) Urine RBC >182 H (0-5) /hpf Urine WBC 52 H (0-5) /hpf Urine WBC Clumps Many H (None) /hpf Amorphous Sediment Moderate H (None) /hpf Urine Bacteria Few H (None) /hpf Hyaline Casts 9 H (0-2) /lpf 08/23/22 08/23/22 08/23/22 Range/Units 11:59 11:59 11:59 WBC (3.8-10.6) k/uL Hgb (13.0-17.5) gm/dL Hct (39.0-53.0) % MCV (80.0-100.0) fL MCH (25.0-35.0) pg RDW (11.5-15.5) % Neutrophils # (1.3-7.7) k/uL Neutrophils # (Manual) (1.3-7.7) k/uL Lymphocytes # (Manual) (1.0-4.8) k/uL Monocytes # (0-1.0) k/uL Monocytes # (Manual) (0-1.0) k/uL Retic Count (0.5-2.0) % Haptoglobin 243.0 H (31.2-198.0) mg/dL Sodium 135 L (137-145) mmol/L Chloride (98-107) mmol/L Carbon Dioxide (22-30) mmol/L BUN 30 H (9-20) mg/dL Creatinine 1.42 H (0.66-1.25) mg/dL Glucose 124 H (74-99) mg/dL Calcium 6.4 L* (8.4-10.2) mg/dL Iron (65-175) ug/dL % Saturation (15.00-50.00) Total Bilirubin 1.9 H 1.9 H (0.2-1.3) mg/dL Lactate Dehydrogenase (120-246) U/L Troponin I (0.000-0.034) ng/mL Total Protein 5.3 L (6.3-8.2) g/dL Albumin 3.0 L (3.5-5.0) g/dL Vitamin B12 (200.0-944.0) pg/mL Urine Protein (Negative) Urine Glucose (UA) (Negative) Urine Ketones (Negative) Urine Blood (Negative) Ur Leukocyte Esterase (Negative) Urine RBC (0-5) /hpf Urine WBC (0-5) /hpf Urine WBC Clumps (None) /hpf Amorphous Sediment (None) /hpf Urine Bacteria (None) /hpf Hyaline Casts (0-2) /lpf 08/23/22 08/24/22 08/24/22 Range/Units 11:59 06:04 06:04 WBC 31.3 H (3.8-10.6) k/uL Hgb 10.0 L (13.0-17.5) gm/dL Hct 32.0 L (39.0-53.0) % MCV 74.4 L (80.0-100.0) fL MCH 23.2 L (25.0-35.0) pg RDW 16.2 H (11.5-15.5) % Neutrophils # 22.8 H (1.3-7.7) k/uL Neutrophils # (Manual) (1.3-7.7) k/uL Lymphocytes # (Manual) (1.0-4.8) k/uL Monocytes # 5.9 H (0-1.0) k/uL Monocytes # (Manual) (0-1.0) k/uL Retic Count (0.5-2.0) % Haptoglobin (31.2-198.0) mg/dL Sodium (137-145) mmol/L Chloride 111 H (98-107) mmol/L Carbon Dioxide 20 L (22-30) mmol/L BUN 28 H (9-20) mg/dL Creatinine (0.66-1.25) mg/dL Glucose 103 H (74-99) mg/dL Calcium 5.8 L* (8.4-10.2) mg/dL Iron (65-175) ug/dL % Saturation (15.00-50.00) Total Bilirubin (0.2-1.3) mg/dL Lactate Dehydrogenase (120-246) U/L Troponin I 0.092 H* (0.000-0.034) ng/mL Total Protein (6.3-8.2) g/dL Albumin (3.5-5.0) g/dL Vitamin B12 (200.0-944.0) pg/mL Urine Protein (Negative) Urine Glucose (UA) (Negative) Urine Ketones (Negative) Urine Blood (Negative) Ur Leukocyte Esterase (Negative) Urine RBC (0-5) /hpf Urine WBC (0-5) /hpf Urine WBC Clumps (None) /hpf Amorphous Sediment (None) /hpf Urine Bacteria (None) /hpf Hyaline Casts (0-2) /lpf Microbiology - Last 24 Hours (Table) 03/19/23 11:54 Urine Culture - Preliminary Urine,Voided Assessment and Plan (1) Leg wound, left Status: Acute Code(s): S81.802A - UNSPECIFIED OPEN WOUND, LEFT LOWER LEG, INITIAL ENCOUNTER SNOMED Code(s): 322550577 (2) Leukocytosis Status: Acute Priority: High Code(s): D72.829 - ELEVATED WHITE BLOOD CELL COUNT, UNSPECIFIED SNOMED Code(s): 026225023 Plan: 1patient with SIRS in this patient who did have a significant hypotension requiring pressor support also noticed to have elevated white count patient who was recently did have a fall with significant hematoma to the left leg s/p evacuation patient did not have any fever during this hospital stay and no ev idence of any purulence to the left lower extremity or any cellulitis Per Ortho note, underlying infection less likely but not entirely excluded. 2we will continue patient on vancomycin however we will switch the Zosyn to cefepime to decrease risk of nephrotoxicity while waiting for the culture to finalize. We will follow on clinical condition and cultures to further adjust medication if needed Thank you for this consultation we will follow the patient along with you Time with Patient: Greater than 30
[2022-08-24] MEDS: traZODone HCL 100 MG TAB PO SCH (22:05)
[2022-08-24] MEDS: ATORVASTATIN 80 MG TAB PO SCH (22:05)
[2022-08-25] MEDS: CEFEPIME 2 GM in SODIUM CHLORIDE 0.9% 100 ML IVPB SCH ×4 (00:21→23:35)
[2022-08-25] MEDS: HYDROCORTISONE SUCCINATE 100 MG/2 ML VIAL IV SCH ×5 (00:22→23:35)
[2022-08-25] MEDS: VANCOMYCIN 1,250 MG in SODIUM CHLORIDE 0.9% 250 ML IVPB SCH ×2 (00:22→18:09)
[2022-08-25] MEDS: HYDROmorphone 0.5 MG/0.5 ML SYRINGE IVP PRN ×5 (03:42→19:45)
[2022-08-25] MEDS: SODIUM CHLORIDE 0.9% 1,000 ML IV SCH ×2 (05:56→16:18)
[2022-08-25] MEDS: LEVOTHYROXINE 88 MCG TAB PO SCH (06:33)
[2022-08-25 08:41] LABS: Calcium 5.7 mg/dL (8.4-10.2)
[2022-08-25 09:00] LABS: Anisocytosis Slight; Basophils # (A) 0.1 k/uL (0-0.2); Basophils % (A) 0 %; Eosinophils % (A) 0 %; HCT 34.8 % (39.0-53.0); HGB 10.5 gm/dL (13.0-17.5); Hypochromasia Marked; Lymphocytes # (A) 0.7 k/uL (1.0-4.8); Lymphocytes % (A) 3 %; MCH 23.2 pg (25.0-35.0); MCHC 30.2 g/dL (31.0-37.0); MCV 76.7 fL (80.0-100.0); Mean Platelet Volume 9.9; Microcytosis Slight; Monocytes # (A) 0.8 k/uL (0-1.0); Monocytes % (A) 4 %; Neutrophils # (A) 18.7 k/uL (1.3-7.7); Neutrophils % (A) 91 %; Platelet Count 169 k/uL (150-450); Poikilocytosis Slight; RBC 4.53 m/uL (4.30-5.90); RDW 16.3 % (11.5-15.5); WBC 20.6 k/uL (3.8-10.6)
[2022-08-25] MEDS ORDERED: CALCIUM GLUCONATE IN NACL 1 GM in SALINE 1 100ML.BAG IVPB ONE (09:30)
--- NOTE | 2022-08-25 09:39 | PN ---
PROGRESS NOTE SUBJECTIVE: Mr. Boone had evacuation of a hematoma of his left leg area. He is doing better. He is off Levophed. Blood pressure is in the 120s, decent urine output. I am recommending we add metoprolol tartrate 25 mg b.i.d., Jardiance 10 mg daily, losartan 25 mg at bedtime. OBJECTIVE: VITAL SIGNS: Stable. HEART: S1, S2 with irregular rhythm. Short systolic murmur. LUNGS: Revealed decent air entry. ABDOMEN: Soft. EXTREMITIES: Lower extremities reveal diminished pulses. CENTRAL NERVOUS SYSTEM: Normal. MMODL / IJN: [id number] /
[2022-08-25] MEDS: DAPAGLIFLOZIN PROPANEDIOL 5 MG TABLET PO SCH (09:59)
[2022-08-25] MEDS: METOPROLOL TARTRATE 25 MG TAB PO SCH ×2 (09:59→20:31)
[2022-08-25] MEDS: ACETAMINOPHEN TAB 500 MG TAB PO PRN ×2 (10:57→21:51)
--- NOTE | 2022-08-25 12:01 | P.PN ---
Subjective Progress Note Date: 08/25/22 This is a 77-year-old white male with history of multiple medical problems including chronic atrial fibrillation, maintained on a course, history of non- small cell lung cancer and previous left-sided pneumonectomy, history of tachybradycardia syndrome and previous pacemaker implantation, hypertension, hyp othyroidism, patient sustained a fall about 10 days ago, landed on his left side, and sustained swelling to the left lower extremity and to the left hip area. He came into the hospital on 08/21/2022,, complaining of pain in the left lower extremity, and he was found to have significant hematoma underwent evacuation of hematoma and washout of the left doherty. Yesterday, I was notified about this patient that he was found hypotensive, low hemoglobin, patient was confused, and did not improve with 2 L of fluids, hence we transfer the patient to the ICU. In the meantime I recommended a stat CBC and if hemoglobin below 7 to transfuse the patient with 2 units of blood, and start the patient on nor epinephrine after fluid boluses. Patient was seen in the ER today, he already received 1 unit of packed RBCs, and the second unit is pending. His hemoglobin was 6.8 earlier today. Patient is receiving fluids at 0.9 normal saline 75 mL per hour. He already received 2 fluid boluses of saline. Patient is requiring norepinephrine at 0.1 mcg/kg/m. He is on 2 L nasal cannula. His left lower extremity was evaluated, no significant hematoma is noted in the left lower extremity at the surgical site, however the patient does have significant swelling in the left hip area this was evaluated by orthopedics and he had trauma to the quadriceps muscles of the left hip with possible intramuscular hem orrhage. Eliquis remains on hold. Patient received another unit of packed RBCs shortly after I evaluated him, and repeat hemoglobin was 10.6. However the patient was noted to have significant leukocytosis/leukemoid reaction with WBC count of 49.3, however this leukemoid reaction-type of picture has been noted on previous admission on this patient with elevated WBC count as high as 45,000, oncology was consulted on this patient regarding his chronic and intermittent leukocytosis/leukemoid reaction. The patient is seen today 08/24/2022 in follow-up in the intensive care unit. He had undergone evacuation of a hematoma of his left lower extremity on 08/22/2022. He is currently sitting up in bed. Awake and alert in no acute distress. Maintaining O2 saturations in the 90s on room air. He is still requiring norepinephrine at 9 mcg/m. He has normal saline at 75 ML's per hour. White count 31.3. Hemoglobin 10.0. Platelets 232. Sodium 138. Potassium 3.6. Bicarb 20. BUN 28. Creatinine 1.23. Glucose 103. TSH 0.769. Cortisol level XXII. Urinalysis large amount of blood high WBCs and few bacteria. Culture pending. He remains on vancomycin and Zosyn. He will be initiated on Solu- Cortef 50 mg IV every 6 hours. The patient is seen today 08/25/2022 in follow-up in the intensive care unit. He is currently resting comfortably in bed. Awake and alert in no acute distress. He is maintaining good O2 saturations in the 90s on 2 L/m per nasal cannula. His norepinephrine has been off since early this morning. Blood pressure stable. Continued on Solu-Cortef. Receiving normal saline at 100 mL per hour. Remains on antibiotics in the form of vancomycin and cefepime. Blood cultures reveal no growth. Urine culture reveals no growth. White count 20.6. Hemoglobin 10.5. Platelet count 169. Sodium 137. Potassium 4.0. Bicarb 22. BUN 19. Creatinine 1.00. Glucose 122. Calcium 5.7. Objective - Vital Signs Vital signs: Vital Signs Temp 98.3 F 08/25/22 08:00 Pulse 70 08/25/22 11:00 Resp 22 08/25/22 11:15 BP 136/78 08/25/22 11:15 Pulse Ox 93 L 08/25/22 11:15 FiO2 Intake & Output 08/24/22 08/25/22 08/25/22 18:59 06:59 18:59 Intake Total 2565.997 2820.114 585 Output Total 550 470 Balance 2015.997 2350.114 585 Weight 82.8 kg Intake: IV 150 1560 585 0.9 @ KVO 110 10 Cefepime 2 gm In Sodium 100 75 Chloride 0.9% 100 ml @ 25 mls/hr IVPB Q8HR [facility] Rx# :[id number] IV Fluid 150 Sodium Chloride 0.9% 1, 1100 500 000 ml @ 100 mls/hr IV . Q10H [facility] Rx#:[id number] Vancomycin 1,250 mg In 250 Sodium Chloride 0.9% 250 ml @ 125 mls/hr IVPB Q16H [facility] Rx#:[id number] Intake, IV Titration 1695.997 180.114 Amount Norepinephrine 4 mg In 245.997 80.114 Sodium Chloride 0.9% 250 ml @ 0.03 MCG/KG/MIN 7. 932 mls/hr IV .Q24H [facility] Rx#:[id number] Piperacillin-Tazobactam 3 200 .375 gm In Sodium Chloride 0.9% 100 ml @ 25 mls/hr IVPB Q8HR [facility] Rx# :[id number] Sodium Chloride 0.9% 1, 1000 100 000 ml @ 100 mls/hr IV . Q10H [facility] Rx#:[id number] Vancomycin 1,250 mg In 250 Sodium Chloride 0.9% 250 ml @ 125 mls/hr IVPB Q16H [facility] Rx#:[id number] Oral 720 1080 Output: Urine 550 470 Other: Voiding Method Urinal Urinal Urinal # Voids 1 # Bowel Movements 1 - Exam Physical Exam: Revealed 77-year-old male, very hard of hearing, on 3 L nasal cannula, in no acute distress. Head: Atraumatic normocephalic. HEENT: PERRLA, EOMI, dry mucous membranes. Neck is supple. No neck masses. No thyromegaly. No JVD. Chest: Diminished breath sound on the left side, normal breath sounds on the right side. No rhonchi no wheezes. Cardiac Exam: Normal S1 and S2, 2/6 systolic murmur at the apex, no gallop, no rub Abdomen: Soft, nontender, no megaly, no rebound, no guarding, normal bowel sounds. Extremities: No clubbing, no edema, no cyanosis. Surgical dressing noted in the left calf region, related to recent evacuation of hematoma. No evidence of swelling or hematoma recurrence. There is however significant swelling noted over the left hip area laterally. Neurological Exam: Alert and oriented 3. No focal neurologic deficit. Psychiatric: Normal mood affect and normal mental status examination. Skin: No rashes. - Labs CBC & Chem 7: 08/25/22 07:30 08/25/22 07:30 Labs: Abnormal Lab Results - Last 24 Hours (Table) 08/24/22 08/24/22 08/25/22 Range/Units 06:04 06:04 07:30 WBC 20.6 H (3.8-10.6) k/uL Hgb 10.5 L (13.0-17.5) gm/dL Hct 34.8 L (39.0-53.0) % MCV 76.7 L (80.0-100.0) fL MCH 23.2 L (25.0-35.0) pg MCHC 30.2 L (31.0-37.0) g/dL RDW 16.3 H (11.5-15.5) % Neutrophils # 18.7 H (1.3-7.7) k/uL Lymphocytes # 0.7 L (1.0-4.8) k/uL Chloride (98-107) mmol/L Glucose (74-99) mg/dL Calcium (8.4-10.2) mg/dL Total Protein (PEP) 4.7 L (6.2-8.2) g/dL Procalcitonin 1.17 H (0.02-0.09) ng/mL 08/25/22 Range/Units 07:30 WBC (3.8-10.6) k/uL Hgb (13.0-17.5) gm/dL Hct (39.0-53.0) % MCV (80.0-100.0) fL MCH (25.0-35.0) pg MCHC (31.0-37.0) g/dL RDW (11.5-15.5) % Neutrophils # (1.3-7.7) k/uL Lymphocytes # (1.0-4.8) k/uL Chloride 109 H (98-107) mmol/L Glucose 122 H (74-99) mg/dL Calcium 5.7 L* (8.4-10.2) mg/dL Total Protein (PEP) (6.2-8.2) g/dL Procalcitonin (0.02-0.09) ng/mL Microbiology - Last 24 Hours (Table) 08/23/22 12:07 Blood Culture - Preliminary Blood No Growth after 24 hours 08/23/22 11:59 Blood Culture - Preliminary Blood No Growth after 24 hours 08/23/22 11:54 Urine Culture - Final Urine,Voided Assessment and Plan Assessment: Acute blood loss anemia, suspect the 2 sources of bleeding are in the left calf region and in the left hip area Left lower extremity hematoma, status post evacuation of hematoma on 08/22/2022. Left hip trauma and intramuscular hemorrhage. Being addressed by orthopedics on the case. Anemia, status post 2 units of packed RBCs, current hemoglobin 10.5. Hypotension secondary to blood loss anemia and hypovolemia, definitely doubt sepsis as his presentation does not seem to be a septic presentation. History of pacemaker implantation for tachybradycardia syndrome. History of hypertension History of hypothyroidism History of non-small cell lung cancer and previous left-sided pneumonectomy in 2008 Ex-smoker Plan: The patient was seen and evaluated Labs and medications reviewed Able to be weaned off norepinephrine Continue Solu-Cortef 50 mg IV every 6 hours Pro calcitonin pending Currently on vancomycin and Zosyn Blood and urine cultures revealing no growth Stable for transfer to the general medical floor with telemetry We'll continue to follow I have personally seen and examined the patient, performed the documentation and the assessment and plan as written. Number of minutes spent on the visit: 10.
--- NOTE | 2022-08-25 13:00 | P.PN ---
Subjective Progress Note Date: 08/25/22 Principal diagnosis: Status post left lower extremity hematoma evacuation Patient evaluated today, he is currently in the ICU. He is having minimal discomfort in the left lower extremity at this time. Objective - Vital Signs Vital signs: Vital Signs Temp 98.3 F 08/25/22 08:00 Pulse 70 08/25/22 11:00 Resp 22 08/25/22 11:15 BP 136/78 08/25/22 11:15 Pulse Ox 93 L 08/25/22 11:15 FiO2 Intake & Output 08/24/22 08/25/22 08/25/22 18:59 06:59 18:59 Intake Total 2565.997 2820.114 710 Output Total 550 470 Balance 2015.997 2350.114 710 Weight 82.8 kg Intake: IV 150 1560 710 0.9 @ KVO 110 10 Cefepime 2 gm In Sodium 100 100 Chloride 0.9% 100 ml @ 25 mls/hr IVPB Q8HR [facility] Rx# :[id number] IV Fluid 150 Sodium Chloride 0.9% 1, 1100 600 000 ml @ 100 mls/hr IV . Q10H [facility] Rx#:[id number] Vancomycin 1,250 mg In 250 Sodium Chloride 0.9% 250 ml @ 125 mls/hr IVPB Q16H [facility] Rx#:[id number] Intake, IV Titration 1695.997 180.114 Amount Norepinephrine 4 mg In 245.997 80.114 Sodium Chloride 0.9% 250 ml @ 0.03 MCG/KG/MIN 7. 932 mls/hr IV .Q24H [facility] Rx#:[id number] Piperacillin-Tazobactam 3 200 .375 gm In Sodium Chloride 0.9% 100 ml @ 25 mls/hr IVPB Q8HR [facility] Rx# :[id number] Sodium Chloride 0.9% 1, 1000 100 000 ml @ 100 mls/hr IV . Q10H [facility] Rx#:[id number] Vancomycin 1,250 mg In 250 Sodium Chloride 0.9% 250 ml @ 125 mls/hr IVPB Q16H [facility] Rx#:[id number] Oral 720 1080 Output: Urine 550 470 Other: Voiding Method Urinal Urinal Urinal # Voids 1 # Bowel Movements 1 - Exam Left lower extremity: Postoperative dressing is a good position and condition. Generalized swelling in the extremity is present. Logroll maneuver the extremity reproduces no pain, tenderness with palpation of the knee, foot or ankle. Plantar flexion, dorsiflexion, EHL, FHL are intact. Sensory exam light touch is intact of the extremity, dorsalis pedis pulses 2+ - Labs CBC & Chem 7: 08/25/22 07:30 08/25/22 07:30 Labs: Abnormal Lab Results - Last 24 Hours (Table) 08/24/22 08/24/22 08/25/22 Range/Units 06:04 06:04 07:30 WBC 20.6 H (3.8-10.6) k/uL Hgb 10.5 L (13.0-17.5) gm/dL Hct 34.8 L (39.0-53.0) % MCV 76.7 L (80.0-100.0) fL MCH 23.2 L (25.0-35.0) pg MCHC 30.2 L (31.0-37.0) g/dL RDW 16.3 H (11.5-15.5) % Neutrophils # 18.7 H (1.3-7.7) k/uL Lymphocytes # 0.7 L (1.0-4.8) k/uL Chloride (98-107) mmol/L Glucose (74-99) mg/dL Calcium (8.4-10.2) mg/dL Total Protein (PEP) 4.7 L (6.2-8.2) g/dL Procalcitonin 1.17 H (0.02-0.09) ng/mL 08/25/22 Range/Units 07:30 WBC (3.8-10.6) k/uL Hgb (13.0-17.5) gm/dL Hct (39.0-53.0) % MCV (80.0-100.0) fL MCH (25.0-35.0) pg MCHC (31.0-37.0) g/dL RDW (11.5-15.5) % Neutrophils # (1.3-7.7) k/uL Lymphocytes # (1.0-4.8) k/uL Chloride 109 H (98-107) mmol/L Glucose 122 H (74-99) mg/dL Calcium 5.7 L* (8.4-10.2) mg/dL Total Protein (PEP) (6.2-8.2) g/dL Procalcitonin (0.02-0.09) ng/mL Microbiology - Last 24 Hours (Table) 08/23/22 12:07 Blood Culture - Preliminary Blood No Growth after 24 hours 08/23/22 11:59 Blood Culture - Preliminary Blood No Growth after 24 hours 08/23/22 11:54 Urine Culture - Final Urine,Voided Assessment and Plan Assessment: Postoperative day #3 status post left lower extremity hematoma evacuation Hypotensive Anemia Other medical comorbidities Plan: Monitor dressing, ice and elevate the extremity Orthopedically patient can weight-bear as tolerated on the left lower extremity, recommend use of walker GI and DVT prophylaxis per primary medical service Other medical terminologist recommendations appreciated Orthopedically patient is stable for discharge, please contact our service there are any further questions regarding this patient Time with Patient: Less than 30
--- NOTE | 2022-08-25 14:02 | P.PN ---
Subjective Progress Note Date: 08/25/22 HISTORY OF PRESENT ILLNESS: This is a 77-year-old male patient of [facility] with past medical history of non-small cell lung cancer diagnosed in 2009 status post lobectomy, remote history of tobacco use, remote history of alcohol abuse, alcoholic peripheral neuropathy, hypertension, coronary artery disease, paroxysmal atrial fibrillation, hypothyroidism, patient was getting out of his urologist office after a biopsy done with Dr. Avery last Wednesday and on his way down using his walker he fell down and he landed on his left lower extremity, patient got helped into the car and he went home and he did not have any contact with any physician he did not call my office he was supposed, seen in the office however he did not show up, patient sister brought him into the office yesterday with intractable pain and left hip as well as left lower extremity he did appear to have a significant swelling of the left hip area as well as significant hematoma to the left doherty, patient was not able to be ready within the left lower extremity EMS was called and the patient was transported to the emergency department at [facility] initial x-rays did not show evidence of acute fracture only soft tissue swelling he ended up going for a computed tomography scan of the hip that did show evidence of hematoma of the quadriceps muscles with soft tissue edema along with significant hematoma the left lower extremity without evidence of any fracture admitted show evidence of bilateral hip past arthritis, patient was started on IV pain management in the form of Dilaudid 0.5 mg 1 mg IV push every 3 hours as needed for pain control, orthopedic consultation was obtained for possible I&D of the hematoma the left lower extremity. 08/23: Patient underwent an I&D of the left leg hematoma by Dr. Schultz, patient went to the floor, patient developed to have a significant hypotensive episode, his blood pressure was 60/40 patient was given 2 L of IV fluid, repeated stat CBC showed a hemoglobin of 6.2, patient was transferred her to the ICU, he was started on Levothroid, he was given 2 units of packed red blood cells, and the patient was seen today he was sitting up in bed he is denying any chest pain at this time, he developed to have a significant chest pain yes terday, his EKG showed paced rhythm, he was seen in consultation by cardiology who recommended to hold antihypertensive medication as well as to hold anticoagulation, and monitor the patient very closely, patient also has been following with pulmonary/critical care, we will continue to monitor the patient ICU, patient prognosis is guarded. Patient will require physical therapy rehabilitation. 08/24: Patient remains in the intensive care unit. He is postop day #2 following I&D of the left leg hematoma. Hemoglobin is 10, WBC 31.3. Potassium 3.6, BUN 28 creatinine 1.23. Sodium 138. Calcium 5.8. Magnesium 1.8. Urine culture is in progress. He is status post total of 2 units of packed RBCs.. He is maintained on IV antibiotics in the form of Zosyn and vancomycin. Renal ultrasound revealed no hydronephrosis. Underlying chronic medical renal disease. Prostatomegaly of 5.6 cm.. 08/25: Patient remains in the intensive care unit but has been downgraded to [facility] with telemetry. He is postop day #3 for I&D of the left leg hematoma. Orthopedics has cleared him for discharge. Eliquis remains on hold and we will plan to resume this at the time of discharge. Dr. Uriarte has resume the patient on Farxiga, losartan and Lopressor. Patient is continued on IV cefepime and vancomycin managed by Dr. Avila. Repeat blood work reveals improvement in leukocytosis to 20.6. Hemoglobin is at 10.5 and platelet count 169. BUN 19 and creatinine 1. Calcium is 5.7. TSH 0.769. Cortisol level XXII. Patient is continued on IV hydrocortisone. Patient is upset that he will require subacute rehab at discharge. He states he does not want to go to [facility] in an order place for [facility]. [facility] is much more convenient for the patient's family and patient is agreeable for [facility]. REVIEW OF SYSTEMS: Constitutional: No documented fever, no chills, no night sweats. No weight change. No weakness, fatigue or lethargy. No daytime sleepiness. HEENT: No headache. No blurred vision or double vision, no loss of vision. very hard of Hearing, no ringing in the ears, no dizziness. No nasal drainage or congestion. No epistaxis. No sore throat. Lungs: No shortness of breath, no cough, no sputum production. no wheezing. Cardiovascular: No chest pain, positive for lower extremity edema. No palpitations. No paroxysmal nocturnal dyspnea. No orthopnea. No lightheadedness or dizziness. Reports syncopal episodes. Abdominal: Reports no abdominal pain. No nausea, vomiting. No diarrhea. No constipation. No bloody or tarry stools reports loss of appetite. Genitourinary: No dysuria, increased frequency, urgency. No urinary retention. Musculoskeletal: positive for myalgias. positive for left muscle weakness, positive for gait dysfunction, positive for frequent falls, positive for back pain and neck pain along with left hip and leg pain Integumentary: Surgical wound left leg, no lesions. No rash or pruritus. positive for hematoma to the left leg with significant bruising Neurologic: No aphasia. No facial droop. No change in mentation. No head injury. No headache. No paralysis. No paresthesia. Psychiatric: positive for depression, positive for anxiety. No mood swings. Endocrine: No abnormal blood sugars. No weight change. PHYSICAL EXAMINATION: General: This is a 77-year-old male resting in bed in no acute distress. Patient's is at bedside HEENT: Head is atraumatic, normocephalic, pupils were equal round reactive to light and recommendation, extraocular muscle movement were intact, sclera nonicteric, conjunctivae were pale, mucous membranes of the mouth are somewhat dry. Neck: Supple, no JVP, normal carotid upstroke bilaterally, no lymphadenopathy. Chest: Decreased breath sounds at the bases, no wheezes, no chest wall tenderness, no intercostal retractions. Heart: First heart sound is normal, second heart sounds normal, systolic ejection murmur 2/6 located at the left sternal border, ppm Abdomen: Soft, nontender, nondistended, positive bowel sounds. Extremities: There is +2 edema no calf tenderness DP +1 bilaterally, dressing to the left lower extremity. Neurologic examination: Patient is awake alert and oriented 3, cranial nerves II-12 appear grossly intact, muscle power were 4 out of 5 in upper extremities and 2 out of 5 in bilateral lower extremities, deep tendon reflexes normal bilaterally. ASSESSMENT AND PLAN: 1. Postoperative day #3 status post incision and drainage of left leg hematoma. Continue current pain management, monitor the patient very closely, orthopedic is following. Orthopedics has cleared the patient for discharge. Physical therapy evaluation. 2. Hypovolemic shock due to acute blood loss anemia. Patient did receive 2 units of packed red blood cells, continue IV fluid, monitor the patient input and output and daily weight, monitor the patient's CBC, continue patient on Levophed, wean as indicated keep his mean arterial pressure greater than 65 3. chest pain likely related to hypovolemic shock and acute blood loss anemia. Status post 2 units of packed cells, cardiac consultation appreciated. 4. Leukocytosis with microcytosis and from cytopenia rule out myeloproliferative disorder/myelodysplasia. 5. History of non-small cell lung cancer in 2008 status post left pneumonectomy. 6. Hypertension and hypertensive cardiovascular disease . Blood pressure has recovered and cardiology has resume the patient on losartan, metoprolol and Farxiga. 7. Chronic diastolic heart failure. 8. Paroxysmal atrial fibrillation. we will hold off Eliquis. We will plan to resume at the time of discharge. 9. History of sick sinus syndrome status post pacemaker implantation, stable. 10. Alcoholic peripheral neuropathy. stable. 11. Hypothyroidism. Continue levothyroxine 88 g daily. 12. GI prophylaxis. Protonix 40 mg daily. 13. DVT prophylaxis. we will hold off Eliquis for now. 14. PT OT evaluation as well as social media editor consultation for discharge planning to [facility] for subacute rehab. Impression and plan of care have been directed as dictated by the signing physician. Jada Burr nurse practitioner acting as scribe for signing physician. Objective - Vital Signs Vital signs: Vital Signs Temp 98.1 F 08/25/22 12:00 Pulse 82 08/25/22 13:00 Resp 20 08/25/22 13:00 BP 138/66 08/25/22 13:00 Pulse Ox 93 L 08/25/22 13:00 FiO2 Intake & Output 08/24/22 08/25/22 08/25/22 18:59 06:59 18:59 Intake Total 2565.997 2820.114 810 Output Total 550 470 Balance 2015.997 2350.114 810 Weight 82.8 kg Intake: IV 150 1560 810 0.9 @ KVO 110 10 Cefepime 2 gm In Sodium 100 100 Chloride 0.9% 100 ml @ 25 mls/hr IVPB Q8HR [facility] Rx# :[id number] IV Fluid 150 Sodium Chloride 0.9% 1, 1100 700 000 ml @ 100 mls/hr IV . Q10H [facility] Rx#:[id number] Vancomycin 1,250 mg In 250 Sodium Chloride 0.9% 250 ml @ 125 mls/hr IVPB Q16H [facility] Rx#:[id number] Intake, IV Titration 1695.997 180.114 Amount Norepinephrine 4 mg In 245.997 80.114 Sodium Chloride 0.9% 250 ml @ 0.03 MCG/KG/MIN 7. 932 mls/hr IV .Q24H [facility] Rx#:[id number] Piperacillin-Tazobactam 3 200 .375 gm In Sodium Chloride 0.9% 100 ml @ 25 mls/hr IVPB Q8HR [facility] Rx# :[id number] Sodium Chloride 0.9% 1, 1000 100 000 ml @ 100 mls/hr IV . Q10H [facility] Rx#:[id number] Vancomycin 1,250 mg In 250 Sodium Chloride 0.9% 250 ml @ 125 mls/hr IVPB Q16H [facility] Rx#:[id number] Oral 720 1080 Output: Urine 550 470 Other: Voiding Method Urinal Urinal Urinal # Voids 1 # Bowel Movements 1 - Labs CBC & Chem 7: 08/25/22 07:30 08/25/22 07:30 Labs: Abnormal Lab Results - Last 24 Hours (Table) 08/24/22 08/24/22 08/25/22 Range/Units 06:04 06:04 07:30 WBC 20.6 H (3.8-10.6) k/uL Hgb 10.5 L (13.0-17.5) gm/dL Hct 34.8 L (39.0-53.0) % MCV 76.7 L (80.0-100.0) fL MCH 23.2 L (25.0-35.0) pg MCHC 30.2 L (31.0-37.0) g/dL RDW 16.3 H (11.5-15.5) % Neutrophils # 18.7 H (1.3-7.7) k/uL Lymphocytes # 0.7 L (1.0-4.8) k/uL Chloride (98-107) mmol/L Glucose (74-99) mg/dL Calcium (8.4-10.2) mg/dL Total Protein (PEP) 4.7 L (6.2-8.2) g/dL Procalcitonin 1.17 H (0.02-0.09) ng/mL 08/25/22 Range/Units 07:30 WBC (3.8-10.6) k/uL Hgb (13.0-17.5) gm/dL Hct (39.0-53.0) % MCV (80.0-100.0) fL MCH (25.0-35.0) pg MCHC (31.0-37.0) g/dL RDW (11.5-15.5) % Neutrophils # (1.3-7.7) k/uL Lymphocytes # (1.0-4.8) k/uL Chloride 109 H (98-107) mmol/L Glucose 122 H (74-99) mg/dL Calcium 5.7 L* (8.4-10.2) mg/dL Total Protein (PEP) (6.2-8.2) g/dL Procalcitonin (0.02-0.09) ng/mL Microbiology - Last 24 Hours (Table) 08/23/22 12:07 Blood Culture - Preliminary Blood No Growth after 24 hours 08/23/22 11:59 Blood Culture - Preliminary Blood No Growth after 24 hours 08/23/22 11:54 Urine Culture - Final Urine,Voided
--- NOTE | 2022-08-25 19:08 | P.PN ---
Subjective Progress Note Date: 08/25/22 Principal diagnosis: SIRS and left leg hematoma Patient is a 77-year male with multiple comorbidities including non- small cell lung cancer s/p lobectomy hypertension coronary disease paroxysmal atrial fibrillation patient recently did have a prostate biopsy done at his urologist office on the way out of the office the patient did fell down and landed on his left lower extremity, subsequently admitted to the hospital with weakness hypertension left leg hematoma which has been drained admitted to ICU because of hypotension and elevated white count. On today's evaluation that is 08/25/2022, the patient denies having any fever or any chills patient is currently breathing comfortably on room air no chest pain or shortness occasional of abdominal pain. Left leg is currently controlled Objective - Vital Signs Vital signs: Vital Signs Temp 98.3 F 08/25/22 08:00 Pulse 71 08/25/22 10:15 Resp 20 08/25/22 10:15 BP 135/90 08/25/22 10:15 Pulse Ox 93 L 08/25/22 10:15 FiO2 Intake & Output 08/24/22 08/25/22 08/25/22 18:59 06:59 18:59 Intake Total 2565.997 2820.114 460 Output Total 550 470 Balance 2015.997 2350.114 460 Weight 82.8 kg Intake: IV 150 1560 460 0.9 @ KVO 110 10 Cefepime 2 gm In Sodium 100 50 Chloride 0.9% 100 ml @ 25 mls/hr IVPB Q8HR [facility] Rx# :[id number] IV Fluid 150 Sodium Chloride 0.9% 1, 1100 400 000 ml @ 100 mls/hr IV . Q10H [facility] Rx#:[id number] Vancomycin 1,250 mg In 250 Sodium Chloride 0.9% 250 ml @ 125 mls/hr IVPB Q16H [facility] Rx#:[id number] Intake, IV Titration 1695.997 180.114 Amount Norepinephrine 4 mg In 245.997 80.114 Sodium Chloride 0.9% 250 ml @ 0.03 MCG/KG/MIN 7. 932 mls/hr IV .Q24H [facility] Rx#:[id number] Piperacillin-Tazobactam 3 200 .375 gm In Sodium Chloride 0.9% 100 ml @ 25 mls/hr IVPB Q8HR [facility] Rx# :[id number] Sodium Chloride 0.9% 1, 1000 100 000 ml @ 100 mls/hr IV . Q10H [facility] Rx#:[id number] Vancomycin 1,250 mg In 250 Sodium Chloride 0.9% 250 ml @ 125 mls/hr IVPB Q16H [facility] Rx#:[id number] Oral 720 1080 Output: Urine 550 470 Other: Voiding Method Urinal Urinal Urinal # Voids 0 - Exam GENERAL DESCRIPTION: An elderly male lying in bed in no distress RESPIRATORY SYSTEM: Unlabored breathing , decreased breath sounds at bases HEART: S1 S2 regular rate and rhythm , ABDOMEN: Soft , no tenderness EXTREMITIES: Left leg is currently dressed - Labs CBC & Chem 7: 08/25/22 07:30 08/25/22 07:30 Labs: Abnormal Lab Results - Last 24 Hours (Table) 08/24/22 08/24/22 08/25/22 Range/Units 06:04 06:04 07:30 WBC 20.6 H (3.8-10.6) k/uL Hgb 10.5 L (13.0-17.5) gm/dL Hct 34.8 L (39.0-53.0) % MCV 76.7 L (80.0-100.0) fL MCH 23.2 L (25.0-35.0) pg MCHC 30.2 L (31.0-37.0) g/dL RDW 16.3 H (11.5-15.5) % Neutrophils # 18.7 H (1.3-7.7) k/uL Lymphocytes # 0.7 L (1.0-4.8) k/uL Chloride (98-107) mmol/L Glucose (74-99) mg/dL Calcium (8.4-10.2) mg/dL Total Protein (PEP) 4.7 L (6.2-8.2) g/dL Procalcitonin 1.17 H (0.02-0.09) ng/mL 08/25/22 Range/Units 07:30 WBC (3.8-10.6) k/uL Hgb (13.0-17.5) gm/dL Hct (39.0-53.0) % MCV (80.0-100.0) fL MCH (25.0-35.0) pg MCHC (31.0-37.0) g/dL RDW (11.5-15.5) % Neutrophils # (1.3-7.7) k/uL Lymphocytes # (1.0-4.8) k/uL Chloride 109 H (98-107) mmol/L Glucose 122 H (74-99) mg/dL Calcium 5.7 L* (8.4-10.2) mg/dL Total Protein (PEP) (6.2-8.2) g/dL Procalcitonin (0.02-0.09) ng/mL Microbiology - Last 24 Hours (Table) 08/23/22 12:07 Blood Culture - Preliminary Blood No Growth after 24 hours 08/23/22 11:59 Blood Culture - Preliminary Blood No Growth after 24 hours 08/23/22 11:54 Urine Culture - Final Urine,Voided Assessment and Plan (1) Leukocytosis Current Visit: Yes Status: Acute Priority: High Code(s): D72.829 - ELEVATED WHITE BLOOD CELL COUNT, UNSPECIFIED SNOMED Code(s): 591873862 Plan: 1patient with SIRS in this patient who did have a significant hypotension requiring pressor support also noticed to have elevated white count patient who was recently did have a fall with significant hematoma to the left leg s/p evacuation patient did not have any fever during this hospital stay and no evidence of any purulence to the left lower extremity or any cellulitis Per Ortho note, underlying infection less likely but not entirely excluded. 2patient seemed to have some improvement and will continue vancomycin and cefepime while waiting for the culture to finalize. Time with Patient: Less than 30
[2022-08-25] MEDS: LOSARTAN 25 MG TAB PO SCH (20:31)
[2022-08-25] MEDS: ATORVASTATIN 80 MG TAB PO SCH (20:31)
[2022-08-25] MEDS: traZODone HCL 100 MG TAB PO SCH (21:50)
[2022-08-25 23:13] LABS: Albumin 2.51 g/dL (3.80-4.90)
[2022-08-26] MEDS: SODIUM CHLORIDE 0.9% 1,000 ML IV SCH ×3 (00:16→20:34)
[2022-08-26] MEDS: HYDROmorphone 0.5 MG/0.5 ML SYRINGE IVP PRN ×4 (03:54→21:00)
[2022-08-26] MEDS: LEVOTHYROXINE 88 MCG TAB PO SCH (05:45)
[2022-08-26] MEDS: HYDROCORTISONE SUCCINATE 100 MG/2 ML VIAL IV SCH ×2 (05:45→13:09)
[2022-08-26] MEDS ORDERED: VANCOMYCIN TROUGH DUE 1 EACH MISC MISCELLANE ONE (08:00)
[2022-08-26 08:11] LABS: Methylmalonic Acid 0.24 umol/L (<0.40)
--- NOTE | 2022-08-26 09:52 | P.PN ---
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 He follows in the office with Dr. Pinon. Patient had a fall approximately 10 days ago and fell on his left side. Since that time he has had increased swelling of his left lower extremity. He presented to the hospital with swelling and pain in his left lower extremity. Patient was found to have significant hematoma and therefore had surgery with washout of the left doheryt. He still does have some swelling of the left thigh. After procedure he was extremely hypotensive blood pressures recorded in the 50s to 60s systolic and admits to feeling confused and chest pain and short of breath. Hemoglobin decreased to 6.9 and he was given 2 units packed red blood cells. He additionally has been placed on norepinephrine with improvement in blood pressure and improvement in symptoms. He denies any history of CAD. He denies any further chest pain. He is atrial paced on telemetry. 08/26 Patient is seen today on the [facility] floor. Patient's blood pressure was stabilized and he was resumed yesterday back on some of his blood pressure medications, transferred to the [facility] floor. Patient denies any chest pain or shortness of breath this morning. He has Rosales wrap dressing in place to the left lower leg at the site of the hematoma. Heart rate has been in the 50s to 70s, blood pressure 114/53, afebrile, pulse ox 97% on 2 L nasal cannula. Repeat blood work reports are pending this morning of the time of this dictation but yesterday potassium was 4, BUN 19 and creatinine 1. plan is to continue patient's current medications. Resume eliquis once cleared by attending. Echocardiogram EF 55-60%, mild mitral regurgitation, limited study. PHYSICAL EXAMINATION Vitals reviewed CONSTITUTIONAL: No apparent distress. HEENT: Head is normocephalic. Pupils are equal, round. Sclerae anicteric. Mucous membranes of the mouth are moist. No JVD. No carotid bruit. CHEST EXAMINATION: Lungs are clear to auscultation. No chest wall tenderness is noted on palpation or with deep breathing. HEART EXAMINATION: Regular rate and rhythm. S1, S2 heard. Systolic ejection murmur at apex, no gallops or rub. ABDOMEN: Soft, nontender. Positive bowel sounds. EXTREMITIES: 2+ peripheral pulses, no lower extremity edema and no calf ten derness. SKIN: Warm, dry NEUROLOGIC EXAMINATION: Patient is awake, alert and oriented x3. ASSESSMENT Chest pain during hypotensive episode appears related to severe hypotension SBP 50-60's Hypotension postoperatively, acute blood loss anemia, medication effect with pain meds given versus other Left doherty hematoma status post evacuation. 08/22 History of tachy-arabella syndrome and syncope status post pacemaker implantation in 07/2020 Paroxysmal atrial fibrillation on Eliquis currently normal sinus rhythm History of hypertension Dyslipidemia Former tobacco use Former alcohol use Non-small cell lung cancer in 2008 status post left pneumonectomy History of hypothyroidism Acute blood loss anemia PLAN Continue patient's current cardiac medications Resume eliquis once attending is in agreement The patient is cleared for discharge from cardiology and may follow-up in the office with Dr. Pinon and 1-2 weeks. Cardiology will sign off and follow on an as-needed basis. Please reconsult for any new concerns. Nurse practitioner note has been reviewed, I agree with the documented findings and plan of care. Patient was seen and examined. Objective - Vital Signs Vital signs: Vital Signs Temp 97.3 F L 08/26/22 01:19 Pulse 59 L 08/26/22 01:19 Resp 16 08/26/22 01:19 BP 114/53 08/26/22 01:19 Pulse Ox 97 08/26/22 01:19 FiO2 Intake & Output 08/25/22 08/26/22 08/26/22 18:59 06:59 18:59 Intake Total 910 1100 Output Total 200 900 Balance 710 200 Intake: IV 910 1100 0.9 @ KVO 10 Cefepime 2 gm In Sodium 100 100 Chloride 0.9% 100 ml @ 25 mls/hr IVPB Q8HR GAGANDEEP Rx# :[id number] Sodium Chloride 0.9% 1, 800 1000 000 ml @ 100 mls/hr IV . Q10H GAGANDEEP Rx#:[id number] Output: Urine 200 900 Other: Voiding Method Urinal Urinal # Voids 1 # Bowel Movements 1 - Labs CBC & Chem 7: 08/25/22 07:30 08/25/22 07:30 Labs: Abnormal Lab Results - Last 24 Hours (Table) 08/24/22 08/24/22 08/25/22 Range/Units 06:04 06:04 07:30 WBC 20.6 H (3.8-10.6) k/uL Hgb 10.5 L (13.0-17.5) gm/dL Hct 34.8 L (39.0-53.0) % MCV 76.7 L (80.0-100.0) fL MCH 23.2 L (25.0-35.0) pg MCHC 30.2 L (31.0-37.0) g/dL RDW 16.3 H (11.5-15.5) % Neutrophils # 18.7 H (1.3-7.7) k/uL Lymphocytes # 0.7 L (1.0-4.8) k/uL Chloride (98-107) mmol/L Glucose (74-99) mg/dL Calcium (8.4-10.2) mg/dL Albumin (PEP) 2.51 L (3.80-4.90) g/dL Gamma Globulins 0.50 L (0.70-1.50) g/dL Total PSA 11.1 H (<=4.0) ng/mL Procalcitonin (0.02-0.09) ng/mL 08/25/22 08/25/22 Range/Units 07:30 07:30 WBC (3.8-10.6) k/uL Hgb (13.0-17.5) gm/dL Hct (39.0-53.0) % MCV (80.0-100.0) fL MCH (25.0-35.0) pg MCHC (31.0-37.0) g/dL RDW (11.5-15.5) % Neutrophils # (1.3-7.7) k/uL Lymphocytes # (1.0-4.8) k/uL Chloride 109 H (98-107) mmol/L Glucose 122 H (74-99) mg/dL Calcium 5.7 L* (8.4-10.2) mg/dL Albumin (PEP) (3.80-4.90) g/dL Gamma Globulins (0.70-1.50) g/dL Total PSA (<=4.0) ng/mL Procalcitonin 0.66 H (0.02-0.09) ng/mL Microbiology - Last 24 Hours (Table) 08/23/22 11:59 Blood Culture - Preliminary Blood No Growth after 48 hours 08/23/22 12:07 Blood Culture - Preliminary Blood No Growth after 48 hours
[2022-08-26] MEDS: DAPAGLIFLOZIN PROPANEDIOL 5 MG TABLET PO SCH (10:28)
[2022-08-26] MEDS: METOPROLOL TARTRATE 25 MG TAB PO SCH ×2 (10:28→20:31)
--- NOTE | 2022-08-26 10:45 | CDI ---
Documentation Clarification Form Date: 08/26/2022 10:12:18 AM From: Mara Bojorquez RN, CCDS Admit Date: 08/23/2022 2:26:00 AM Patient Name: Cuauhtemoc Boone Visit Number: [id number] Discharge Date: ATTENTION: The Clinical Documentation Specialists (CDI) and [facility] Coding Staff appreciate your assistance in clarifying documentation. Please respond to the clarification below the line at the bottom and electronically sign. The CDI & [facility] Coding staff will review the response and follow-up if needed. Please note: Queries are made part of the Legal Health Record. If you have any questions, please contact the author of this message via ITS. Dr. Nat Oglesby Your patient has documentation of underlying chronic medical renal disease. Based on this information and the findings below, is there an additional diagnosis that is clinically appropriate for this patient? Patient history/risk factors: Paroxysmal atrial fibrillation, Hypertension, Hyperthyroidism Clinical Indicators: 78-year-old female present post fall with CT showing evidence of hematoma of the quadriceps muscles and soft tissue edema along with significant hematoma to the left lower extremity. He had hypovolemic shock due to acute blood loss anemia. 08/23 BUN 26 Cr 1.38 GFR 49 08/24 BUN 28 Cr 1.23 GFR 56 08/25 BUN 19 Cr 1.00 GFR 72 Treatment: Telemetry/ICU monitoring 2 units of PRBC .9NS 2,000 mls Bolus 08/24 then 100 mls hr. 08/24-08/26 Levophed drip per orders 08/23-08/25 Input and output and daily weight, Monitor blood pressure/control Is there an additional diagnosis that is clinically appropriate for this patient? [ X ] Acute Kidney Injury [ ] Acute on Chronic Renal Failure (please stage) [ ] No additional diagnosis/Not clinically significant [ ] Unable to determine [ ] Other, please specify Reference: KDIGO KEEGAN Criteria An increase in serum creatinine by greater than or equal to 0.3 mg/dL within 48 hours; An increase in serum creatinine by greater than or equal to 1.5 times baseline, which is known or presumed to have occurred within the prior 7 days; A urine volume less than 0.5 ml/kg/h for 6 hours. When the baseline is unknown the lowest creatinine during admission assumed to be baseline (Template Last Revised: July 2022) MTDD
[2022-08-26] MEDS: CEFEPIME 2 GM in SODIUM CHLORIDE 0.9% 100 ML IVPB SCH ×2 (10:49→17:33)
--- NOTE | 2022-08-26 11:02 | P.PN ---
Subjective Progress Note Date: 08/26/22 HISTORY OF PRESENT ILLNESS: This is a 77-year-old male patient of [facility] with past medical history of non-small cell lung cancer diagnosed in 2009 status post lobectomy, remote history of tobacco use, remote history of alcohol abuse, alcoholic peripheral neuropathy, hypertension, coronary artery disease, paroxysmal atrial fibrillation, hypothyroidism, patient was getting out of his urologist office after a biopsy done with Dr. Avery last Wednesday and on his way down using his walker he fell down and he landed on his left lower extremity, patient got helped into the car and he went home and he did not have any contact with any physician he did not call my office he was supposed, seen in the office however he did not show up, patient sister brought him into the office yesterday with intractable pain and left hip as well as left lower extremity he did appear to have a significant swelling of the left hip area as well as significant hematoma to the left doherty, patient was not able to be ready within the left lower extremity EMS was called and the patient was transported to the emergency department at [facility] initial x-rays did not show evidence of acute fracture only soft tissue swelling he ended up going for a computed tomography scan of the hip that did show evidence of hematoma of the quadriceps muscles with soft tissue edema along with significant hematoma the left lower extremity without evidence of any fracture admitted show evidence of bilateral hip past arthritis, patient was started on IV pain management in the form of Dilaudid 0.5 mg 1 mg IV push every 3 hours as needed for pain control, orthopedic consultation was obtained for possible I&D of the hematoma the left lower extremity. 08/23: Patient underwent an I&D of the left leg hematoma by Dr. Schultz, patient went to the floor, patient developed to have a significant hypotensive episode, his blood pressure was 60/40 patient was given 2 L of IV fluid, repeated stat CBC showed a hemoglobin of 6.2, patient was transferred her to the ICU, he was started on Levothroid, he was given 2 units of packed red blood cells, and the patient was seen today he was sitting up in bed he is denying any chest pain at this time, he developed to have a significant chest pain yes terday, his EKG showed paced rhythm, he was seen in consultation by cardiology who recommended to hold antihypertensive medication as well as to hold anticoagulation, and monitor the patient very closely, patient also has been following with pulmonary/critical care, we will continue to monitor the patient ICU, patient prognosis is guarded. Patient will require physical therapy rehabilitation. 08/24: Patient remains in the intensive care unit. He is postop day #2 following I&D of the left leg hematoma. Hemoglobin is 10, WBC 31.3. Potassium 3.6, BUN 28 creatinine 1.23. Sodium 138. Calcium 5.8. Magnesium 1.8. Urine culture is in progress. He is status post total of 2 units of packed RBCs.. He is maintained on IV antibiotics in the form of Zosyn and vancomycin. Renal ultrasound revealed no hydronephrosis. Underlying chronic medical renal disease. Prostatomegaly of 5.6 cm.. 08/25: Patient remains in the intensive care unit but has been downgraded to [facility] with telemetry. He is postop day #3 for I&D of the left leg hematoma. Orthopedics has cleared him for discharge. Eliquis remains on hold and we will plan to resume this at the time of discharge. Dr. Uriarte has resume the patient on Farxiga, losartan and Lopressor. Patient is continued on IV cefepime and vancomycin managed by Dr. Avila. Repeat blood work reveals improvement in leukocytosis to 20.6. Hemoglobin is at 10.5 and platelet count 169. BUN 19 and creatinine 1. Calcium is 5.7. TSH 0.769. Cortisol level XXII. Patient is continued on IV hydrocortisone. Patient is upset that he will require subacute rehab at discharge. He states he does not want to go to [facility] in an order place for [facility]. [facility] is much more convenient for the patient's family and patient is agreeable for [facility]. 08/26 Patient is still waiting for insurance authorization. At this time he is unable to go to [facility] as he would like to because his insurance is not accepted at [facility]. His first choice is now [facility] and second choice is [facility]. Patient remains afebrile, heart rate 77, blood pressure 134/58, pulse ox 97% on 2 L nasal cannula. Oxygen is now been removed. Repeat creatinine 1.0 2. Cardiology has signed off his vital signs are stable and plan is for patient to resume eliquis. REVIEW OF SYSTEMS: Constitutional: No documented fever, no chills, no night sweats. No weight change. No weakness, fatigue or lethargy. No daytime sleepiness. HEENT: No headache. No blurred vision or double vision, no loss of vision. very hard of Hearing, no ringing in the ears, no dizziness. No nasal drainage or congestion. No epistaxis. No sore throat. Lungs: No shortness of breath, no cough, no sputum production. no wheezing. Cardiovascular: No chest pain, positive for lower extremity edema. No palpitations. No paroxysmal nocturnal dyspnea. No orthopnea. No lightheadedness or dizziness. Reports syncopal episodes. Abdominal: Reports no abdominal pain. No nausea, vomiting. No diarrhea. No constipation. No bloody or tarry stools reports loss of appetite. Genitourinary: No dysuria, increased frequency, urgency. No urinary retention. Musculoskeletal: positive for myalgias. positive for left muscle weakness, positive for gait dysfunction, positive for frequent falls, positive for back pain and neck pain along with left hip and leg pain Integumentary: Surgical wound left leg, no lesions. No rash or pruritus. positive for hematoma to the left leg with significant bruising Neurologic: No aphasia. No facial droop. No change in mentation. No head injury. No headache. No paralysis. No paresthesia. Psychiatric: positive for depression, positive for anxiety. No mood swings. Endocrine: No abnormal blood sugars. No weight change. PHYSICAL EXAMINATION: General: This is a 77-year-old male resting in bed in no acute distress. Patient's is at bedside HEENT: Head is atraumatic, normocephalic, pupils were equal round reactive to light and recommendation, extraocular muscle movement were intact, sclera nonicteric, conjunctivae were pale, mucous membranes of the mouth are somewhat dry. Neck: Supple, no JVP, normal carotid upstroke bilaterally, no lymphadenopathy. Chest: Decreased breath sounds at the bases, no wheezes, no chest wall tenderness, no intercostal retractions. Heart: First heart sound is normal, second heart sounds normal, systolic ejection murmur 2/6 located at the left sternal border, ppm Abdomen: Soft, nontender, nondistended, positive bowel sounds. Extremities: There is +2 edema no calf tenderness DP +1 bilaterally, dressing to the left lower extremity. Neurologic examination: Patient is awake alert and oriented 3, cranial nerves II-12 appear grossly intact, muscle power were 4 out of 5 in upper extremities and 2 out of 5 in bilateral lower extremities, deep tendon reflexes normal bilaterally. ASSESSMENT AND PLAN: 1. Postoperative day #4 status post incision and drainage of left leg hematoma. Continue current pain management, monitor the patient very closely, orthopedic is following. Orthopedics has cleared the patient for discharge. Physical therapy and occupational therapy evaluation and treatment. 2. Hypovolemic shock due to acute blood loss anemia. Patient did receive 2 units of packed red blood cells. Patient is off Levophed and resumed on his blood pressure medications 3. chest pain likely related to hypovolemic shock and acute blood loss anemia. Status post 2 units of packed cells, cardiac consultation appreciated. 4. Leukocytosis with microcytosis and from cytopenia rule out myeloproliferat robina disorder/myelodysplasia. 5. History of non-small cell lung cancer in 2008 status post left p neumonectomy. 6. Hypertension and hypertensive cardiovascular disease . Blood pressure has recovered and cardiology has resume the patient on losartan, metoprolol and Farxiga. 7. Chronic diastolic heart failure. 8. Paroxysmal atrial fibrillation. we will hold off Eliquis. We will plan to resume at the time of discharge. 9. History of sick sinus syndrome status post pacemaker implantation, stable. 10. Alcoholic peripheral neuropathy. stable. 11. Hypothyroidism. Continue levothyroxine 88 g daily. 12. GI prophylaxis. Protonix 40 mg daily. 13. DVT prophylaxis. we will hold off Eliquis for now. 14. PT OT evaluation as well as social sciences department chair consultation for discharge planning to [facility] for subacute rehab. Impression and plan of care have been directed as dictated by the signing physician. Jada Burr nurse practitioner acting as scribe for signing physician. Objective - Vital Signs Vital signs: Vital Signs Temp 97.3 F L 08/26/22 01:19 Pulse 59 L 08/26/22 01:19 Resp 16 08/26/22 01:19 BP 114/53 08/26/22 01:19 Pulse Ox 97 08/26/22 01:19 FiO2 Intake & Output 08/25/22 08/26/22 08/26/22 18:59 06:59 18:59 Intake Total 910 1100 Output Total 200 900 Balance 710 200 Intake: IV 910 1100 0.9 @ KVO 10 Cefepime 2 gm In Sodium 100 100 Chloride 0.9% 100 ml @ 25 mls/hr IVPB Q8HR GAGANDEEP Rx# :[id number] Sodium Chloride 0.9% 1, 800 1000 000 ml @ 100 mls/hr IV . Q10H GAGANDEEP Rx#:[id number] Output: Urine 200 900 Other: Voiding Method Urinal Urinal # Voids 1 # Bowel Movements 1 - Labs CBC & Chem 7: 08/25/22 07:30 08/26/22 08:00 Labs: Abnormal Lab Results - Last 24 Hours (Table) 08/24/22 08/24/22 08/25/22 Range/Units 06:04 06:04 07:30 WBC 20.6 H (3.8-10.6) k/uL Hgb 10.5 L (13.0-17.5) gm/dL Hct 34.8 L (39.0-53.0) % MCV 76.7 L (80.0-100.0) fL MCH 23.2 L (25.0-35.0) pg MCHC 30.2 L (31.0-37.0) g/dL RDW 16.3 H (11.5-15.5) % Neutrophils # 18.7 H (1.3-7.7) k/uL Lymphocytes # 0.7 L (1.0-4.8) k/uL Chloride (98-107) mmol/L Glucose (74-99) mg/dL Calcium (8.4-10.2) mg/dL Albumin (PEP) 2.51 L (3.80-4.90) g/dL Gamma Globulins 0.50 L (0.70-1.50) g/dL Total PSA 11.1 H (<=4.0) ng/mL Procalcitonin (0.02-0.09) ng/mL 08/25/22 08/25/22 Range/Units 07:30 07:30 WBC (3.8-10.6) k/uL Hgb (13.0-17.5) gm/dL Hct (39.0-53.0) % MCV (80.0-100.0) fL MCH (25.0-35.0) pg MCHC (31.0-37.0) g/dL RDW (11.5-15.5) % Neutrophils # (1.3-7.7) k/uL Lymphocytes # (1.0-4.8) k/uL Chloride 109 H (98-107) mmol/L Glucose 122 H (74-99) mg/dL Calcium 5.7 L* (8.4-10.2) mg/dL Albumin (PEP) (3.80-4.90) g/dL Gamma Globulins (0.70-1.50) g/dL Total PSA (<=4.0) ng/mL Procalcitonin 0.66 H (0.02-0.09) ng/mL Microbiology - Last 24 Hours (Table) 08/23/22 11:59 Blood Culture - Preliminary Blood No Growth after 48 hours 08/23/22 12:07 Blood Culture - Preliminary Blood No Growth after 48 hours
[2022-08-26] MEDS: VANCOMYCIN 1,250 MG in SODIUM CHLORIDE 0.9% 250 ML IVPB SCH (11:26)
[2022-08-26 12:00] LABS: Free Kappa Lt Chain Qnt, Serum 3.75 mg/dL (0.33-1.94)
--- NOTE | 2022-08-26 13:40 | P.PN ---
Subjective Progress Note Date: 08/26/22 This is a 77-year-old white male with history of multiple medical problems including chronic atrial fibrillation, maintained on a course, history of non- small cell lung cancer and previous left-sided pneumonectomy, history of tachybradycardia syndrome and previous pacemaker implantation, hypertension, hyp othyroidism, patient sustained a fall about 10 days ago, landed on his left side, and sustained swelling to the left lower extremity and to the left hip area. He came into the hospital on 08/21/2022,, complaining of pain in the left lower extremity, and he was found to have significant hematoma underwent evacuation of hematoma and washout of the left doherty. Yesterday, I was notified about this patient that he was found hypotensive, low hemoglobin, patient was confused, and did not improve with 2 L of fluids, hence we transfer the patient to the ICU. In the meantime I recommended a stat CBC and if hemoglobin below 7 to transfuse the patient with 2 units of blood, and start the patient on nor epinephrine after fluid boluses. Patient was seen in the ER today, he already received 1 unit of packed RBCs, and the second unit is pending. His hemoglobin was 6.8 earlier today. Patient is receiving fluids at 0.9 normal saline 75 mL per hour. He already received 2 fluid boluses of saline. Patient is requiring norepinephrine at 0.1 mcg/kg/m. He is on 2 L nasal cannula. His left lower extremity was evaluated, no significant hematoma is noted in the left lower extremity at the surgical site, however the patient does have significant swelling in the left hip area this was evaluated by orthopedics and he had trauma to the quadriceps muscles of the left hip with possible intramuscular hem orrhage. Eliquis remains on hold. Patient received another unit of packed RBCs shortly after I evaluated him, and repeat hemoglobin was 10.6. However the patient was noted to have significant leukocytosis/leukemoid reaction with WBC count of 49.3, however this leukemoid reaction-type of picture has been noted on previous admission on this patient with elevated WBC count as high as 45,000, oncology was consulted on this patient regarding his chronic and intermittent leukocytosis/leukemoid reaction. The patient is seen today 08/24/2022 in follow-up in the intensive care unit. He had undergone evacuation of a hematoma of his left lower extremity on 08/22/2022. He is currently sitting up in bed. Awake and alert in no acute distress. Maintaining O2 saturations in the 90s on room air. He is still requiring norepinephrine at 9 mcg/m. He has normal saline at 75 ML's per hour. White count 31.3. Hemoglobin 10.0. Platelets 232. Sodium 138. Potassium 3.6. Bicarb 20. BUN 28. Creatinine 1.23. Glucose 103. TSH 0.769. Cortisol level XXII. Urinalysis large amount of blood high WBCs and few bacteria. Culture pending. He remains on vancomycin and Zosyn. He will be initiated on Solu- Cortef 50 mg IV every 6 hours. The patient is seen today 08/25/2022 in follow-up in the intensive care unit. He is currently resting comfortably in bed. Awake and alert in no acute distress. He is maintaining good O2 saturations in the 90s on 2 L/m per nasal cannula. His norepinephrine has been off since early this morning. Blood pressure stable. Continued on Solu-Cortef. Receiving normal saline at 100 mL per hour. Remains on antibiotics in the form of vancomycin and cefepime. Blood cultures reveal no growth. Urine culture reveals no growth. White count 20.6. Hemoglobin 10.5. Platelet count 169. Sodium 137. Potassium 4.0. Bicarb 22. BUN 19. Creatinine 1.00. Glucose 122. Calcium 5.7. The patient is seen today 08/26/2022 in follow-up on the regular medical floor. He is currently sitting up in a chair at the bedside. He is currently maintaining good O2 saturations in the 90s on room air. Normal saline at 100 ML's per hour. He is status post 2 units of packed red blood cells this admission. Blood cultures reveal no growth. Urine culture reveals no growth. Creatinine 1.02. GFR 70. Most recent hemoglobin 10.5. Pro-calcitonin 0.66. He remains on Solu-Cortef, antibiotics in the form of vancomycin and cefepime. Anticoagulated with Eliquis. Objective - Vital Signs Vital signs: Vital Signs Temp 97.8 F 08/26/22 07:59 Pulse 77 08/26/22 10:09 Resp 16 08/26/22 12:00 BP 134/58 08/26/22 10:09 Pulse Ox 97 08/26/22 01:19 FiO2 Intake & Output 08/25/22 08/26/22 08/26/22 18:59 06:59 18:59 Intake Total 910 1100 Output Total 200 900 Balance 710 200 Intake: IV 910 1100 0.9 @ KVO 10 Cefepime 2 gm In Sodium 100 100 Chloride 0.9% 100 ml @ 25 mls/hr IVPB Q8HR [facility] Rx# :[id number] Sodium Chloride 0.9% 1, 800 1000 000 ml @ 100 mls/hr IV . Q10H [facility] Rx#:[id number] Output: Urine 200 900 Other: Voiding Method Urinal Urinal Bedside Commode Urinal # Voids 1 # Bowel Movements 1 - Exam Physical Exam: Revealed 77-year-old male, up in a chair, very hard of hearing, on room air, in no acute distress. Head: Atraumatic normocephalic. HEENT: PERRLA, EOMI, dry mucous membranes. Neck is supple. No neck masses. No thyromegaly. No JVD. Chest: Diminished breath sound on the left side, normal breath sounds on the ri ght side. No rhonchi no wheezes. Cardiac Exam: Normal S1 and S2, 2/6 systolic murmur at the apex, no gallop, no rub Abdomen: Soft, nontender, no megaly, no rebound, no guarding, normal bowel sounds. Extremities: No clubbing, no edema, no cyanosis. Surgical dressing noted in the left calf region, related to recent evacuation of hematoma. No evidence of swelling or hematoma recurrence. There is however significant swelling noted over the left hip area laterally. Neurological Exam: Alert and oriented 3. No focal neurologic deficit. Psychiatric: Normal mood affect and normal mental status examination. Skin: No rashes. - Labs CBC & Chem 7: 08/25/22 07:30 08/26/22 08:00 Labs: Abnormal Lab Results - Last 24 Hours (Table) 08/24/22 08/25/22 Range/Units 06:04 07:30 Albumin (PEP) 2.51 L (3.80-4.90) g/dL Gamma Globulins 0.50 L (0.70-1.50) g/dL Procalcitonin 0.66 H (0.02-0.09) ng/mL Free [place] LC, Quant 3.75 H (0.33-1.94) mg/dL Microbiology - Last 24 Hours (Table) 08/23/22 11:59 Blood Culture - Preliminary Blood No Growth after 48 hours 08/23/22 12:07 Blood Culture - Preliminary Blood No Growth after 48 hours Assessment and Plan Assessment: Acute blood loss anemia, suspect the 2 sources of bleeding are in the left calf region and in the left hip area Left lower extremity hematoma, status post evacuation of hematoma on 08/22/2022. Left hip trauma and intramuscular hemorrhage. Being addressed by orthopedics on the case. Anemia, status post 2 units of packed RBCs, current hemoglobin 10.5. Hypotension secondary to blood loss anemia and hypovolemia, definitely doubt sepsis as his presentation does not seem to be a septic presentation. History of pacemaker implantation for tachybradycardia syndrome. History of hypertension History of hypothyroidism History of non-small cell lung cancer and previous left-sided pneumonectomy in 2008 Ex-smoker Plan: The patient was seen and evaluated Labs and medications reviewed Currently stable and on room air Discontinue Solu-Cortef Pro calcitonin 0.66 Antibiotics per ID service Blood and urine cultures revealing no growth We'll continue to follow I have personally seen and examined the patient, performed the documentation and the assessment and plan as written. Number of minutes spent on the visit: 10.
--- NOTE | 2022-08-26 14:12 | P.CONS ---
History of Present Illness - Reason for Consult Consult date: 08/26/22 Iron deficiency anemia, rule out GI bleed Requesting physician: Madhu Bermeo - Chief Complaint Fall, hip and leg pain - History of Present Illness This a pleasant 77-year-old male who presented to the emergency department on 08/21/2022 with complaints of left hip and leg pain after sustaining a fall at home. Patient has a history of atrial fibrillation on Eliquis, hypertension, hyperlipidemia, prostate cancer, lung cancer, alcoholic peripheral neuropathy, sick sinus syndrome and hypothyroidism. Patient had a CT of the head and x-rays of the lower extremity with no fractures or dislocation. A CT of the hip did show evidence of trauma to the quadricep muscles consistent with possible intramuscular hemorrhage. Orthopedics was consulted and patient underwent inci pasha and evacuation of hematoma the left leg measuring approximately 10 cm x 6 cm, raised 3 cm according to note. On admission patient had a hemoglobin of 10.3 with a drop to 6.8 status post hematoma evacuation. Patient was transfused with 2 units of red with repeat hemoglobin 10.6. Patient also noted to have elevated WBC as high as 49.3 during this admission, hematology was consulted for possible MDS. Iron studies were ordered and patient's blood work was consistent with iron deficiency anemia. Gastroenterology was consulted from hematology for iron deficiency anemia, possible GI bleed. Patient denies any black stool or blood in his stool. Denies any nausea or vomiting, abdominal pain, no hematemesis. Patient had workup 2 years ago and December 2020 for anemia he had EGD done by Dr. Esquivel showing moderate gastritis, mild duodenitis, and moderate hiatal hernia with no evidence of old or active GI bleed. He then underwent a colonoscopy and 12/30/[address] Pinon that was significant for colon polyps status post polypectomy, internal hemorrhoids and diverticulosis. Biopsies came back as tubular adenoma. No labs current as of today. Again no reported symptoms of GI bleed. Plan is for discharge to rehab today. Review of Systems REVIEW OF SYSTEMS: CARDIOPULMONARY: No chest pain or shortness of breath. Gastrointestinal: No abdominal pain. No nausea or vomiting. No hematemesis, coffee-ground emesis. No rectal bleeding, or melena. GENITOURINARY: No dysuria or hematuria. MUSCULOSKELETAL: Left hip and leg pain. Left hip with hematoma, left lower extremity with Rosales wrap status post hematoma evacuation. SKIN: No rashes. No jaundice. ENDOCRINE: No chills, fevers. No excessive weight gain or loss. No polydipsia or polyuria. PSYCHIATRIC: Unremarkable. NEUROLOGY: No change in mental status. Denies dizziness, headache. ENT: Vision unremarkable. CONSTITUTIONAL: No recent weight loss. No fever, chills, night sweats. Past Medical History Past Medical History: Coronary Artery Disease (CAD), Hypertension, Thyroid Disorder Additional Past Medical History / Comment(s): vertigo Last Myocardial Infarction Date:: 2013 History of Any Multi-Drug Resistant Organisms: None Reported Past Surgical History: Hernia Repair, Pacemaker Additional Past Surgical History / Comment(s): Left lung removed Past Anesthesia/Blood Transfusion Reactions: No Reported Reaction Type of Cardiac Device: Unknown Device Placement Date:: June, Past Psychological History: No Psychological Hx Reported Additional Psychological History / Comment(s): Pt resides alone in an apartment. He is independent. Smoking Status: Never smoker Past Alcohol Use History: None Reported Additional Past Alcohol Use History / Comment(s): Pt started smoking in 1958 and quit in 2008. Pt was a heavy drinker/quit in 2008 Past Drug Use History: None Reported - Past Family History Father Family Medical History: Memory Impairment Additional Family Medical History / Comment(s): Father at age 71 from a myocardial infarction. Mother Family Medical History: No Reported History Additional Family Medical History / Comment(s): Mother at age 92 from old age. Brother(s) Additional Family Medical History / Comment(s): Patient has 3 brothers alive with no major medical problems. One brother is dying from stomach cancer. Sister(s) Additional Family Medical History / Comment(s): Patient has one sister and she is alive. History of hypertension and hyperlipidemia. Medications and Allergies Home Medications Medication Instructions Recorded Confirmed Type Atorvastatin [Lipitor] 80 mg PO HS 06/11/20 08/21/22 History Magnesium Oxide 400 mg PO DAILY PRN 12/23/20 08/21/22 History Metoprolol Succinate (ER) [Toprol 100 mg PO DAILY 12/23/20 08/21/22 History XL] Losartan [Cozaar] 50 mg PO DAILY 10/20/21 08/21/22 History Apixaban [Eliquis] 5 mg PO BID #60 tab 10/22/21 08/21/22 Rx Bumetanide [Bumex] 1 mg PO BID 08/21/22 08/21/22 History Empagliflozin [Jardiance] 10 mg PO DAILY 08/21/22 08/21/22 History Ipratropium-Albuterol Nebulize 3 ml INHALATION RT-QID PRN 08/21/22 08/21/22 History [Duoneb 0.5 mg-3 mg/3 ml Soln] Levothyroxine Sodium [Synthroid] 88 mcg PO DAILY 08/21/22 08/21/22 History traZODone HCL [Desyrel] 100 mg PO HS 08/21/22 08/21/22 History Allergies Allergy/AdvReac Type Severity Reaction Status Date / Time No Known Allergies Allergy Verified 08/21/22 13:33 Physical Exam Vitals: Vital Signs Temp Pulse Pulse Pulse Resp BP BP 08/26/22 12:00 16 08/26/22 10:09 77 134/58 08/26/22 07:59 97.8 F 73 19 08/26/22 01:19 97.3 F L 59 L 16 114/53 08/25/22 21:29 73 15 148/71 08/25/22 20:00 98.3 F 71 18 145/76 08/25/22 14:00 84 18 135/62 Pulse Ox 08/26/22 12:00 08/26/22 10:09 08/26/22 07:59 08/26/22 01:19 97 08/25/22 21:29 98 08/25/22 20:00 94 L 08/25/22 14:00 91 L Intake and Output 08/25/22 08/26/22 08/26/22 22:59 06:59 14:59 Intake Total 100 1100 Output Total 200 900 Balance -100 200 Intake: IV 100 1100 Cefepime 2 gm In Sodium 100 Chloride 0.9% 100 ml @ 25 mls/hr IVPB Q8HR [facility] Rx# :[id number] Sodium Chloride 0.9% 1, 100 1000 000 ml @ 100 mls/hr IV . Q10H [facility] Rx#:[id number] Output: Urine 200 900 Other: Voiding Method Urinal Bedside Commode Urinal General appearance: The patient is alert, oriented, appears in no acute distress. HET: Head is normocephalic and atraumatic. Conjunctiva pink. Sclera anicteric. Neck: Supple without lymphadenopathy. Trachea midline. Heart: Regular. Lungs: Chest normal expansion. Abdomen: Soft, nontender, nondistended with bowel sounds. No guarding or rigidity. Skin: No rashes. No jaundice. Extremities: Left hip hematoma, left lower extremity with Rosales wrap and bruising. Neurological: No focal deficits. Alert and oriented x3. Results CBC & Chem 7: 08/25/22 07:30 08/26/22 08:00 Labs: Abnormal Lab Results - Last 24 Hours (Table) 08/24/22 08/25/22 Range/Units 06:04 07:30 Albumin (PEP) 2.51 L (3.80-4.90) g/dL Gamma Globulins 0.50 L (0.70-1.50) g/dL Procalcitonin 0.66 H (0.02-0.09) ng/mL Free [place] LC, Quant 3.75 H (0.33-1.94) mg/dL Microbiology - Last 24 Hours (Table) 08/23/22 11:59 Blood Culture - Preliminary Blood No Growth after 48 hours 08/23/22 12:07 Blood Culture - Preliminary Blood No Growth after 48 hours Assessment and Plan Assessment: 1. Fall causing Left lower extremity hematomas status post surgical evacuation 2. Acute blood loss anemia likely secondary from above 3. Iron deficiency anemia likely secondary from above, patient's had previous endoscopic workup for anemia with no evidence of GI bleed within the last 2 years 4. Atrial fibrillation on Eliquis Plan: 1. Continue symptomatic and supportive care 2. Continue iron replacement 3. May continue anticoagulation 4. Patient with no signs of GI bleed, possible etiology of iron deficiency anemia related to hematoma and hematoma evacuation. No plans on endoscopic evaluation as patient had a recent EGD colonoscopy within the last 2 years for anemia workup. 5. Discussed with patient and his sister who is at the bedside patient should have any signs of GI bleed or continued drop in hemoglobin Set him up for outpatient endoscopic evaluation. Thank you for this consultation, patient is cleared from gastroenterology for discharge. Dr. Jean Marie Pinon I agree with the dictator's note, documented as a scribe by Muriel Duggan.
--- NOTE | 2022-08-26 14:44 | P.PN ---
Subjective Progress Note Date: 08/26/22 Principal diagnosis: Leukocytosis/anemia Upon visit today pt is sitting in bedside chair. He reports feeling well today. Hgb stable, 10.5 today. Pt reports has had blood in urine and stool prior to admission, stating it occurred 1-2 times. Nurse states no reported blood in urine or stool. Pt states he does not believe he has had a colonoscopy in the past. No other reported complaints noted Objective - Vital Signs Vital signs: Vital Signs Temp 97.8 F 08/26/22 07:59 Pulse 77 08/26/22 10:09 Resp 16 08/26/22 12:00 BP 134/58 08/26/22 10:09 Pulse Ox 97 08/26/22 01:19 FiO2 Intake & Output 08/25/22 08/26/22 08/26/22 18:59 06:59 18:59 Intake Total 910 1100 Output Total 200 900 Balance 710 200 Intake: IV 910 1100 0.9 @ KVO 10 Cefepime 2 gm In Sodium 100 100 Chloride 0.9% 100 ml @ 25 mls/hr IVPB Q8HR [facility] Rx# :[id number] Sodium Chloride 0.9% 1, 800 1000 000 ml @ 100 mls/hr IV . Q10H [facility] Rx#:[id number] Output: Urine 200 900 Other: Voiding Method Urinal Urinal Bedside Commode Urinal # Voids 1 # Bowel Movements 1 - Constitutional General appearance: Present: average body habitus, no acute distress - EENT Eyes: Present: anicteric sclerae, EOMI ENT: Present: hard of hearing - Respiratory Details: breathing is even and unlabored - Cardiovascular Details: skin warm and dry - Gastrointestinal General gastrointestinal: Present: soft. Absent: tenderness - Integumentary Integumentary: Present: pale - Musculoskeletal Musculoskeletal: Present: generalized weakness - Psychiatric Psychiatric: Present: A&O x's 3, appropriate affect, intact judgment & insight - Labs CBC & Chem 7: 08/25/22 07:30 08/26/22 08:00 Labs: Abnormal Lab Results - Last 24 Hours (Table) 08/24/22 08/25/22 Range/Units 06:04 07:30 Albumin (PEP) 2.51 L (3.80-4.90) g/dL Gamma Globulins 0.50 L (0.70-1.50) g/dL Procalcitonin 0.66 H (0.02-0.09) ng/mL Free [place] LC, Quant 3.75 H (0.33-1.94) mg/dL Microbiology - Last 24 Hours (Table) 08/23/22 11:59 Blood Culture - Preliminary Blood No Growth after 48 hours 08/23/22 12:07 Blood Culture - Preliminary Blood No Growth after 48 hours Assessment and Plan (1) Leukocytosis Current Visit: Yes Status: Acute Priority: High Code(s): D72.829 - ELEVATED WHITE BLOOD CELL COUNT, UNSPECIFIED SNOMED Code(s): 981547229 (2) Anemia Current Visit: Yes Status: Acute Priority: High Code(s): D64.9 - ANEMIA, UNSPECIFIED SNOMED Code(s): 441997140 Plan: Anemia: -Hemoglobin stable, 10.5 today. Has received 2 units PRBCs during admission -Hemolysis and DIC workup negative. -Iron studies consistent with WILMER. IV iron ordered x 3 doses. Acute drop in hgb likely related to LLE hematoma and recent evacuation. However, UA revealed hematuria/RBCs. Will repeat UA. Renal US revealed no hydronephrosis. There may be some underlying chronic medical renal disease. Prostatomegaly of 5.6 cm wide. If hematuria is persisting will consider consult to urology - GI consult placed to r/o GI bleed -Will continue to monitor counts. CBC in the am -Please transfuse for hemoglobin less than 7 or if symptomatic Leukoctyosis/cytopenia: -Consulted to r/o underlying MDS. WBC 23.26, ANC 18.6, lymphocytes 0.70, and eosinophils 0.0. However, leukocytosis has been noted in lab work since early 2020. WBC was noted at 49.3 during admission, which was substantially higher than at admission. -ID following, blood cultures and urine cultures negative -Leukocytosis likely reactive related to acute inflammatory process and acute blood loss. However, due to long standing luekocytosis will further workup leukemoid reaction to r/o underlying bone marrow etiologies -MGUS workup negative. Immunofixation negative for paraproteinemia. Serum lambda/kappa LC ratio 1.56. -Will have clinic f/u in approx 3 weeks once pt recovers from acute hematoma attests: I have performed H&P and developed impression and plan care for pa tient, discussed with dictator. I agree with dictated note, documented as a scribe
[2022-08-26] MEDS: SODIUM FERRIC GLUCONAT-SUCROSE 125 MG in SODIUM CHLORIDE 0.9% 100 ML IVPB SCH (15:51)
[2022-08-26 18:00] LABS: Appearance,Urine Cloudy (Clear); Bacteria,Urine Rare /hpf; Bilirubin,Urine Negative (Negative); Blood,Urine Large (Negative); Color,Urine Yellow; Glucose,Urine (UA) 4+ (Negative); Ketones,Urine Negative (Negative); Leukocyte Esterase,Urine Negative (Negative); Mucus,Urine Rare /hpf; Nitrite,Urine Negative (Negative); Protein,Urine 1+ (Negative); RBC,Urine 47 /hpf (0-5); Specific Gravity,Urine 1.027 (1.001-1.035); Urobilinogen,Urine <2.0 mg/dL (<2.0); WBC,Urine 3 /hpf (0-5)
[2022-08-26] MEDS: LOSARTAN 25 MG TAB PO SCH (20:31)
[2022-08-26] MEDS: ATORVASTATIN 80 MG TAB PO SCH (20:31)
[2022-08-26] MEDS: APIXABAN 5 MG TAB PO SCH (20:31)
[2022-08-26] MEDS: traZODone HCL 100 MG TAB PO SCH (20:31)
--- NOTE | 2022-08-26 21:15 | P.PN ---
Subjective Progress Note Date: 08/26/22 Principal diagnosis: SIRS and left leg hematoma Patient is a 77-year male with multiple comorbidities including non- small cell lung cancer s/p lobectomy hypertension coronary disease paroxysmal atrial fibrillation patient recently did have a prostate biopsy done at his urologist office on the way out of the office the patient did fell down and landed on his left lower extremity, subsequently admitted to the hospital with weakness hypertension left leg hematoma which has been drained admitted to ICU because of hypotension and elevated white count. On today's evaluation that is 08/26/2022, the patient remains to be afebrile patient is breathing comfortably on 2 L nasal cannula, patient denies chest pain or shortness occasional of abdominal pain. Left leg pain is currently controlled Objective - Vital Signs Vital signs: Vital Signs Temp 97.8 F 08/26/22 07:59 Pulse 77 08/26/22 10:09 Resp 19 08/26/22 07:59 BP 134/58 08/26/22 10:09 Pulse Ox 97 08/26/22 01:19 FiO2 Intake & Output 08/25/22 08/26/22 08/26/22 18:59 06:59 18:59 Intake Total 910 1100 Output Total 200 900 Balance 710 200 Intake: IV 910 1100 0.9 @ KVO 10 Cefepime 2 gm In Sodium 100 100 Chloride 0.9% 100 ml @ 25 mls/hr IVPB Q8HR [facility] Rx# :[id number] Sodium Chloride 0.9% 1, 800 1000 000 ml @ 100 mls/hr IV . Q10H [facility] Rx#:[id number] Output: Urine 200 900 Other: Voiding Method Urinal Urinal Urinal # Voids 1 # Bowel Movements 1 - Exam GENERAL DESCRIPTION: An elderly male lying in bed in no distress RESPIRATORY SYSTEM: Unlabored breathing , decreased breath sounds at bases HEART: S1 S2 regular rate and rhythm , ABDOMEN: Soft , no tenderness EXTREMITIES: Left leg is currently dressed - Labs CBC & Chem 7: 08/25/22 07:30 08/26/22 08:00 Labs: Abnormal Lab Results - Last 24 Hours (Table) 08/24/22 08/24/22 08/25/22 Range/Units 06:04 06:04 07:30 Albumin (PEP) 2.51 L (3.80-4.90) g/dL Gamma Globulins 0.50 L (0.70-1.50) g/dL Total PSA 11.1 H (<=4.0) ng/mL Procalcitonin 0.66 H (0.02-0.09) ng/mL Microbiology - Last 24 Hours (Table) 08/23/22 11:59 Blood Culture - Preliminary Blood No Growth after 48 hours 08/23/22 12:07 Blood Culture - Preliminary Blood No Growth after 48 hours Assessment and Plan (1) Leukocytosis Current Visit: Yes Status: Acute Priority: High Code(s): D72.829 - ELEVATED WHITE BLOOD CELL COUNT, UNSPECIFIED SNOMED Code(s): 287511421 Plan: 1patient with SIRS in this patient who did have a significant hypotension requiring pressor support also noticed to have elevated white count patient who was recently did have a fall with significant hematoma to the left leg s/p evacuation patient did not have any fever during this hospital stay and no evidence of any purulence to the left lower extremity or any cellulitis Per Ortho note, underlying infection less likely but not entirely excluded. 2patient seemed to have some improvement and culture have been negative for any resistant pathogen so far patient will continue vancomycin and cefepime however plan to finish therapy with oral Ceftin Time with Patient: Less than 30
[2022-08-27] MEDS: CEFEPIME 2 GM in SODIUM CHLORIDE 0.9% 100 ML IVPB SCH ×4 (00:08→23:00)
[2022-08-27] MEDS: VANCOMYCIN 1,250 MG in SODIUM CHLORIDE 0.9% 250 ML IVPB SCH ×2 (00:08→17:29)
[2022-08-27] MEDS: HYDROmorphone 0.5 MG/0.5 ML SYRINGE IVP PRN ×6 (02:25→22:59)
[2022-08-27] MEDS: SODIUM CHLORIDE 0.9% 1,000 ML IV SCH ×2 (05:34→17:30)
[2022-08-27] MEDS: LEVOTHYROXINE 88 MCG TAB PO SCH (05:44)
[2022-08-27 07:00] LABS: Anisocytosis Slight; Basophils # (A) 0.1 k/uL (0-0.2); Basophils % (A) 0 %; Eosinophils # (A) 0.1 k/uL (0-0.7); Eosinophils % (A) 0 %; HCT 32.8 % (39.0-53.0); HGB 9.8 gm/dL (13.0-17.5); Hypochromasia Marked; Lymphocytes # (A) 0.8 k/uL (1.0-4.8); Lymphocytes % (A) 4 %; MCH 22.5 pg (25.0-35.0); MCHC 29.8 g/dL (31.0-37.0); MCV 75.4 fL (80.0-100.0); Mean Platelet Volume 8.5; Microcytosis Slight; Monocytes # (A) 2.4 k/uL (0-1.0); Monocytes % (A) 11 %; Neutrophils # (A) 17.1 k/uL (1.3-7.7); Neutrophils % (A) 81 %; Platelet Count 200 k/uL (150-450); Poikilocytosis Slight; RBC 4.35 m/uL (4.30-5.90); RDW 16.8 % (11.5-15.5); WBC 21.2 k/uL (3.8-10.6)
[2022-08-27] MEDS ORDERED: FUROSEMIDE 10 MG/ML 4 ML VIAL IV STA (08:11)
[2022-08-27] MEDS: SODIUM FERRIC GLUCONAT-SUCROSE 125 MG in SODIUM CHLORIDE 0.9% 100 ML IVPB SCH (08:46)
[2022-08-27] MEDS: APIXABAN 5 MG TAB PO SCH ×2 (09:11→20:38)
[2022-08-27] MEDS: METOPROLOL TARTRATE 25 MG TAB PO SCH ×2 (09:11→20:38)
[2022-08-27] MEDS: DAPAGLIFLOZIN PROPANEDIOL 5 MG TABLET PO SCH (09:33)
--- NOTE | 2022-08-27 10:52 | P.DS ---
Providers Date of admission: 08/23/22 02:26 Expected date of discharge: 08/28/22 Attending physician: Nat Oglesby Consults: 08/21/22 15:04 Consult Physician Urgent Consulting Provider: Derrek Schultz Consult Reason/Comments: Hematomas Do you want consulting provider notified?: Yes 08/22/22 12:07 Consult Physician Urgent Consulting Provider: Niall Carranza Consult Reason/Comments: Possible MPD/MDS Do you want consulting provider notified?: Yes 08/23/22 02:00 Consult Physician Urgent Consulting Provider: Terry Costello Consult Reason/Comments: chest pain Do you want consulting provider notified?: Yes, Notify in am 08/23/22 02:25 Consult Physician Urgent Consulting Provider: Nayeli Solis Consult Reason/Comments: hypotension Do you want consulting provider notified?: Already Contacted 08/23/22 13:48 Consult Physician Routine Consulting Provider: Mara Avila Consult Reason/Comments: Sepsis Do you want consulting provider notified?: Yes 08/26/22 11:47 Consult Physician Routine Consulting Provider: Erika Pinon Consult Reason/Comments: WILMER needing transfusion, r/o GI bleed Do you want consulting provider notified?: Yes Primary care physician: Nat Oglesby Hospital Course: HISTORY OF PRESENT ILLNESS: This is a 77-year-old male patient of [facility] with past medical history of non-small cell lung cancer diagnosed in 2008 status post lobectomy, remote history of tobacco use, remote history of alcohol abuse, alcoholic peripheral neuropathy, hypertension, coronary artery disease, paroxysmal atrial fibrillation, hypothyroidism, patient was getting out of his urologist office after a biopsy done with Dr. Avery last Wednesday and on his way down using his walker he fell down and he landed on his left lower extremity, patient got helped into the car and he went home and he did not have any contact with any physician he did not call my office he was supposed, seen in the office however he did not show up, patient sister brought him into the office yesterday with intractable pain and left hip as well as left lower extremity he did appear to have a significant swelling of the left hip area as well as significant hematoma to the left doherty, patient was not able to be ready within the left lower extremity EMS was called and the patient was transported to the emergency department at [facility] initial x-rays did not show evidence of acute fracture only soft tissue swelling he ended up going for a computed tomography scan of the hip that did show evidence of hematoma of the quadriceps muscles with soft tissue edema along with significant hematoma the left lower extremity without evidence of any fracture admitted show evidence of bilateral hip past arthritis, patient was started on IV pain management in the form of Dilaudid 0.5 mg 1 mg IV push every 3 hours as needed for pain control, orthopedic consultation was obtained for possible I&D of the hematoma the left lower extremity. 08/23: Patient underwent an I&D of the left leg hematoma by Dr. Schultz, patient went to the floor, patient developed to have a significant hypotensive episode, his blood pressure was 60/40 patient was given 2 L of IV fluid, repeated stat CBC showed a hemoglobin of 6.2, patient was transferred her to the ICU, he was started on Levothroid, he was given 2 units of packed red blood cells, and the patient was seen today he was sitting up in bed he is denying any chest pain at this time, he developed to have a significant chest pain yesterday, his EKG showed paced rhythm, he was seen in consultation by leo pinon who recommended to hold antihypertensive medication as well as to hold anticoagulation, and monitor the patient very closely, patient also has been following with pulmonary/critical care, we will continue to monitor the patient ICU, patient prognosis is guarded. Patient will require physical therapy rehabilitation. 08/24: Patient remains in the intensive care unit. He is postop day #2 following I&D of the left leg hematoma. Hemoglobin is 10, WBC 31.3. Potassium 3.6, BUN 28 creatinine 1.23. Sodium 138. Calcium 5.8. Magnesium 1.8. Urine culture is in progress. He is status post total of 2 units of packed RBCs.. He is maintained on IV antibiotics in the form of Zosyn and vancomycin. Renal ultrasound revealed no hydronephrosis. Underlying chronic medical renal disease. Prostatomegaly of 5.6 cm.. 08/25: Patient remains in the intensive care unit but has been downgraded to [facility] with telemetry. He is postop day #3 for I&D of the left leg hematoma. Orthopedics has cleared him for discharge. Eliquis remains on hold and we will plan to resume this at the time of discharge. Dr. Uriarte has resume the patient on Farxiga, losartan and Lopressor. Patient is continued on IV cefepime and vancomycin managed by Dr. Avila. Repeat blood work reveals improvement in leukocytosis to 20.6. Hemoglobin is at 10.5 and platelet count 169. BUN 19 and creatinine 1. Calcium is 5.7. TSH 0.769. Cortisol level XXII. Patient is continued on IV hydrocortisone. Patient is upset that he will require subacute rehab at discharge. He states he does not want to go to [facility] in an order place for [facility]. [facility] is much more convenient for the patient's family and patient is agreeable for [facility]. 08/26: Patient is still waiting for insurance authorization. At this time he is unable to go to [facility] as he would like to because his insurance is not accepted at [facility]. His first choice is now [facility] and second choice is [facility]. Patient remains afebrile, heart rate 77, blood pressure 134/58, pulse ox 97% on 2 L nasal cannula. Oxygen is now been removed. Repeat creatinine 1.02. Cardiology has signed off his vital signs are stable and plan is for patient to resume eliquis. 08/27: Yesterday, oncology added a consult for GI. Patient has been evaluated by GI, previous EGD and colonoscopy in 2020. No plan for any intervention at this time and patient can follow-up on an as-needed basis. Patient has not had any rectal bleeding, no vomiting. Oncology has ordered Ferrlecit infusion 3 and patient will be receiving second dose today. Hemoglobin today 9.8, WBC 21.2, platelet count 200. Leukocytosis and cytopenia related to acute inflammatory process and acute blood loss and plan for follow-up in 3 weeks in the office. Pulmonary medicine has discontinued Solu-Cortef. Dr. Avila has recommended an oral course of antibiotics with Ceftin for 7 days at discharge. We are waiting for insurance authorization from now. Patient is now planning to go to the [facility] for subacute rehab. Patient was started back on eliquis last evening. DISCHARGE DIAGNOSES: 1. Status post incision and drainage of left leg hematoma. 2. Hypovolemic shock due to acute blood loss anemia. 3. chest pain likely related to hypovolemic shock and acute blood loss anemia. Status post 2 units of packed cells. 4. Leukocytosis with microcytosis and from cytopenia rule out myeloproliferative disorder/myelodysplasia. 5. History of non-small cell lung cancer in 2008 status post left pneumonectomy. 6. Hypertension and hypertensive cardiovascular disease. 7. Chronic diastolic heart failure. 8. Paroxysmal atrial fibrillation. 9. History of sick sinus syndrome status post pacemaker implantation, stable. 10. Alcoholic peripheral neuropathy. stable. 11. Hypothyroidism. [facility] for subacute rehab. Greater than 35 minutes was utilized and coordinating patient's discharge. Impression and plan of care have been directed as dictated by the signing physician. Jada Burr nurse practitioner acting as scribe for signing physician. Patient Condition at Discharge: Stable Plan - Discharge Summary New Discharge Prescriptions: New Metoprolol Tartrate [Lopressor] 25 mg PO BID #60 tab cefUROXime axetiL [Ceftin] 500 mg PO BID 7 Days #14 tab Losartan [Cozaar] 25 mg PO HS #30 tab Continue Atorvastatin [Lipitor] 80 mg PO HS Magnesium Oxide 400 mg PO DAILY PRN PRN Reason: Muscle Spasm traZODone HCL [Desyrel] 100 mg PO HS Levothyroxine Sodium [Synthroid] 88 mcg PO DAILY Ipratropium-Albuterol Nebulize [Duoneb 0.5 mg-3 mg/3 ml Soln] 3 ml INHALATION RT-QID PRN PRN Reason: Shortness Of Breath Apixaban [Eliquis] 5 mg PO BID #60 tab Empagliflozin [Jardiance] 10 mg PO DAILY Changed Bumetanide [BUMEX] 1 mg PO DAILY #0 Discontinued Metoprolol Succinate (ER) [Toprol XL] 100 mg PO DAILY Losartan [Cozaar] 50 mg PO DAILY Discharge Medication List Atorvastatin [Lipitor] 80 mg PO HS 06/11/20 [History] Magnesium Oxide 400 mg PO DAILY PRN 12/23/20 [History] Apixaban [Eliquis] 5 mg PO BID #60 tab 10/22/21 [Rx] Empagliflozin [Jardiance] 10 mg PO DAILY 08/21/22 [History] Ipratropium-Albuterol Nebulize [Duoneb 0.5 mg-3 mg/3 ml Soln] 3 ml INHALATION RT-QID PRN 08/21/22 [History] Levothyroxine Sodium [Synthroid] 88 mcg PO DAILY 08/21/22 [History] traZODone HCL [Desyrel] 100 mg PO HS 08/21/22 [History] Bumetanide [BUMEX] 1 mg PO DAILY #0 08/26/22 [Rx] Losartan [Cozaar] 25 mg PO HS #30 tab 08/26/22 [Rx] Metoprolol Tartrate [Lopressor] 25 mg PO BID #60 tab 08/26/22 [Rx] cefUROXime axetiL [Ceftin] 500 mg PO BID 7 Days #14 tab 08/26/22 [Rx] Follow up Appointment(s)/Referral(s): Erika Pinon MD [STAFF PHYSICIAN] - As Needed Delmar Tavera PAC [PHYSICIAN TIER OVER] - 10 Days Sae Pinon MD [STAFF PHYSICIAN] - 2 Weeks Niall Carranza MD [STAFF PHYSICIAN] - 3 Weeks Nat Oglesby MD [Primary Care Provider] - 1 Week (after discharge from rehab) Activity/Diet/Wound Care/Special Instructions: Orthopedic discharge instructions: 1. Keep incision covered and dry while showering 2. Utilize basic bandage over incision 3. Follow-up in 10 days for removal of stitches Discharge Disposition: TRANSFER TO SNF/ECF
[2022-08-27 12:21] VITALS: RESP 16
[2022-08-27] MEDS: ACETAMINOPHEN TAB 500 MG TAB PO PRN (12:36)
--- NOTE | 2022-08-27 13:37 | P.PN ---
Subjective Progress Note Date: 08/27/22 HISTORY OF PRESENT ILLNESS: This is a 77-year-old male patient of [facility] with past medical history of non-small cell lung cancer diagnosed in 2009 status post lobectomy, remote history of tobacco use, remote history of alcohol abuse, alcoholic peripheral neuropathy, hypertension, coronary artery disease, paroxysmal atrial fibrillation, hypothyroidism, patient was getting out of his urologist office after a biopsy done with Dr. Avery last Wednesday and on his way down using his walker he fell down and he landed on his left lower extremity, patient got helped into the car and he went home and he did not have any contact with any physician he did not call my office he was supposed, seen in the office however he did not show up, patient sister brought him into the office yesterday with intractable pain and left hip as well as left lower extremity he did appear to have a significant swelling of the left hip area as well as significant hematoma to the left doherty, patient was not able to be ready within the left lower extremity EMS was called and the patient was transported to the emergency department at [facility] initial x-rays did not show evidence of acute fracture only soft tissue swelling he ended up going for a computed tomography scan of the hip that did show evidence of hematoma of the quadriceps muscles with soft tissue edema along with significant hematoma the left lower extremity without evidence of any fracture admitted show evidence of bilateral hip past arthritis, patient was started on IV pain management in the form of Dilaudid 0.5 mg 1 mg IV push every 3 hours as needed for pain control, orthopedic consultation was obtained for possible I&D of the hematoma the left lower extremity. 08/23: Patient underwent an I&D of the left leg hematoma by Dr. Schultz, patient went to the floor, patient developed to have a significant hypotensive episode, his blood pressure was 60/40 patient was given 2 L of IV fluid, repeated stat CBC showed a hemoglobin of 6.2, patient was transferred her to the ICU, he was started on Levothroid, he was given 2 units of packed red blood cells, and the patient was seen today he was sitting up in bed he is denying any chest pain at this time, he developed to have a significant chest pain yes terday, his EKG showed paced rhythm, he was seen in consultation by cardiology who recommended to hold antihypertensive medication as well as to hold anticoagulation, and monitor the patient very closely, patient also has been following with pulmonary/critical care, we will continue to monitor the patient ICU, patient prognosis is guarded. Patient will require physical therapy rehabilitation. 08/24: Patient remains in the intensive care unit. He is postop day #2 following I&D of the left leg hematoma. Hemoglobin is 10, WBC 31.3. Potassium 3.6, BUN 28 creatinine 1.23. Sodium 138. Calcium 5.8. Magnesium 1.8. Urine culture is in progress. He is status post total of 2 units of packed RBCs.. He is maintained on IV antibiotics in the form of Zosyn and vancomycin. Renal ultrasound revealed no hydronephrosis. Underlying chronic medical renal disease. Prostatomegaly of 5.6 cm.. 08/25: Patient remains in the intensive care unit but has been downgraded to [facility] with telemetry. He is postop day #3 for I&D of the left leg hematoma. Orthopedics has cleared him for discharge. Eliquis remains on hold and we will plan to resume this at the time of discharge. Dr. Uriarte has resume the patient on Farxiga, losartan and Lopressor. Patient is continued on IV cefepime and vancomycin managed by Dr. Avila. Repeat blood work reveals improvement in leukocytosis to 20.6. Hemoglobin is at 10.5 and platelet count 169. BUN 19 and creatinine 1. Calcium is 5.7. TSH 0.769. Cortisol level XXII. Patient is continued on IV hydrocortisone. Patient is upset that he will require subacute rehab at discharge. He states he does not want to go to [facility] in an order place for [facility]. [facility] is much more convenient for the patient's family and patient is agreeable for [facility]. 08/26: Patient is still waiting for insurance authorization. At this time he is unable to go to [facility] as he would like to because his insurance is not accepted at [facility]. His first choice is now [facility] and second choice is [facility]. Patient remains afebrile, heart rate 77, blood pressure 134/58, pulse ox 97% on 2 L nasal cannula. Oxygen is now been removed. Repeat creatinine 1.02. Cardiology has signed off his vital signs are stable and plan is for patient to resume eliquis. 08/27: Yesterday, oncology added a consult for GI. Patient has been evaluated by GI, previous EGD and colonoscopy in 2020. No plan for any intervention at this time and patient can follow-up on an as-needed basis. Patient has not had any rectal bleeding, no vomiting. Oncology has ordered Ferrlecit infusion 3 and patient will be receiving second dose today. Hemoglobin today 9.8, WBC 21.2, platelet count 200. Leukocytosis and cytopenia related to acute inflammatory process and acute blood loss and plan for follow-up in 3 weeks in the office. Pulmonary medicine has discontinued Solu-Cortef. Dr. Avila has recommended an oral course of antibiotics with Ceftin for 7 days at discharge. We are waiting for insurance authorization from now. Patient is now planning to go to the [facility] for subacute rehab. Patient was started back on eliquis last evening. REVIEW OF SYSTEMS: Constitutional: No documented fever, no chills, no night sweats. No weight change. No weakness, fatigue or lethargy. No daytime sleepiness. HEENT: No headache. No blurred vision or double vision, no loss of vision. very hard of Hearing, no ringing in the ears, no dizziness. No nasal drainage or congestion. No epistaxis. No sore throat. Lungs: No shortness of breath, no cough, no sputum production. no wheezing. Cardiovascular: No chest pain, positive for lower extremity edema. No palpitations. No paroxysmal nocturnal dyspnea. No orthopnea. No lightheadedn ess or dizziness. Reports syncopal episodes. Abdominal: Reports no abdominal pain. No nausea, vomiting. No diarrhea. No constipation. No bloody or tarry stools reports loss of appetite. Genitourinary: No dysuria, increased frequency, urgency. No urinary retention. Musculoskeletal: positive for myalgias. positive for left muscle weakness, positive for gait dysfunction, positive for frequent falls, positive for back pain and neck pain along with left hip and leg pain Integumentary: Surgical wound left leg, no lesions. No rash or pruritus. positive for hematoma to the left leg with significant bruising Neurologic: No aphasia. No facial droop. No change in mentation. No head injury. No headache. No paralysis. No paresthesia. Psychiatric: positive for depression, positive for anxiety. No mood swings. Endocrine: No abnormal blood sugars. No weight change. PHYSICAL EXAMINATION: General: This is a 77-year-old male resting in bed in no acute distress. Patient's is at bedside HEENT: Head is atraumatic, normocephalic, pupils were equal round reactive to light and recommendation, extraocular muscle movement were intact, sclera non icteric, conjunctivae were pale, mucous membranes of the mouth are somewhat dry. Neck: Supple, no JVP, normal carotid upstroke bilaterally, no lymphadenopathy. Chest: Decreased breath sounds at the bases, no wheezes, no chest wall tenderness, no intercostal retractions. Heart: First heart sound is normal, second heart sounds normal, systolic ejection murmur 2/6 located at the left sternal border, ppm Abdomen: Soft, nontender, nondistended, positive bowel sounds. Extremities: There is +2 edema no calf tenderness DP +1 bilaterally, dressing to the left lower extremity. Neurologic examination: Patient is awake alert and oriented 3, cranial nerves II-12 appear grossly intact, muscle power were 4 out of 5 in upper extremities and 2 out of 5 in bilateral lower extremities, deep tendon reflexes normal bilaterally. ASSESSMENT AND PLAN: 1. Postoperative day #5 status post incision and drainage of left leg hematoma. Continue current pain management, monitor the patient very closely, orthopedic is following. Orthopedics has cleared the patient for discharge. Physical therapy and occupational therapy evaluation and treatment. Patient will be on oral Ceftin at the time of discharge. He is continued on IV vancomycin and cefepime. 2. Hypovolemic shock due to acute blood loss anemia. Patient did receive 2 units of packed red blood cells. Patient is off Levophed and resumed on his blood pressure medications 3. chest pain likely related to hypovolemic shock and acute blood loss anemia. Status post 2 units of packed cells, cardiac consultation appreciated. 4. Leukocytosis with microcytosis and from cytopenia rule out myeloproliferative disorder/myelodysplasia. 5. History of non-small cell lung cancer in 2009 status post left pneumonectomy. 6. Hypertension and hypertensive cardiovascular disease . Blood pressure has recovered and cardiology has resume the patient on losartan, metoprolol and Farxiga. 7. Chronic diastolic heart failure. 8. Paroxysmal atrial fibrillation. Patient has been resumed on eliquis. 9. History of sick sinus syndrome status post pacemaker implantation, stable. 10. Alcoholic peripheral neuropathy. stable. 11. Hypothyroidism. Continue levothyroxine 88 g daily. 12. GI prophylaxis. Protonix 40 mg daily. 13. DVT prophylaxis. Resume Eliquis. 14. PT OT evaluation as well as social work professor consultation for discharge planning to [facility] for subacute rehab. Impression and plan of care have been directed as dictated by the signing physician. Jada Burr nurse practitioner acting as scribe for signing physician. Objective - Vital Signs Vital signs: Vital Signs Temp 97.6 F 08/27/22 12:00 Pulse 73 08/27/22 12:00 Resp 16 08/27/22 12:00 BP 131/68 08/27/22 12:00 Pulse Ox 93 L 08/27/22 12:00 FiO2 Intake & Output 08/26/22 08/27/22 08/27/22 18:59 06:59 18:59 Intake Total 1550 1900 290 Output Total 1170 Balance 1550 1900 -880 Intake: IV 1450 1400 Cefepime 2 gm In Sodium 200 Chloride 0.9% 100 ml @ 25 mls/hr IVPB Q8HR GAGANDEEP Rx# :[id number] Sodium Chloride 0.9% 1, 1200 1200 000 ml @ 100 mls/hr IV . Q10H GAGANDEEP Rx#:[id number] Vancomycin 1,250 mg In 250 Sodium Chloride 0.9% 250 ml @ 125 mls/hr IVPB Q16H GAGANDEEP Rx#:[id number] Intake, IV Titration 100 Amount Sodium Ferric Gluconat- 100 Sucrose 125 mg In Sodium Chloride 0.9% 100 ml @ 100 mls/hr IVPB DAILY GAGANDEEP Rx#:[id number] Oral 500 290 Output: Urine 1170 Other: Voiding Method Bedside Commode Bedside Commode Urinal Urinal Urinal # Voids 4 - Labs CBC & Chem 7: 08/27/22 06:08 08/26/22 08:00 Labs: Abnormal Lab Results - Last 24 Hours (Table) 08/26/22 08/27/22 Range/Units 16:25 06:08 WBC 21.2 H (3.8-10.6) k/uL Hgb 9.8 L (13.0-17.5) gm/dL Hct 32.8 L (39.0-53.0) % MCV 75.4 L (80.0-100.0) fL MCH 22.5 L (25.0-35.0) pg MCHC 29.8 L (31.0-37.0) g/dL RDW 16.8 H (11.5-15.5) % Neutrophils # 17.1 H (1.3-7.7) k/uL Lymphocytes # 0.8 L (1.0-4.8) k/uL Monocytes # 2.4 H (0-1.0) k/uL Urine Protein 1+ H (Negative) Urine Glucose (UA) 4+ H (Negative) Urine Blood Large H (Negative) Urine RBC 47 H (0-5) /hpf Urine Bacteria Rare H (None) /hpf Urine Mucus Rare H (None) /hpf Microbiology - Last 24 Hours (Table) 08/23/22 12:07 Blood Culture - Preliminary Blood No Growth after 72 hours 08/23/22 11:59 Blood Culture - Preliminary Blood No Growth after 72 hours
--- NOTE | 2022-08-27 13:49 | P.PN ---
Subjective Progress Note Date: 08/27/22 This is a 77-year-old white male with history of multiple medical problems including chronic atrial fibrillation, maintained on a course, history of non- small cell lung cancer and previous left-sided pneumonectomy, history of tachybradycardia syndrome and previous pacemaker implantation, hypertension, hyp othyroidism, patient sustained a fall about 10 days ago, landed on his left side, and sustained swelling to the left lower extremity and to the left hip area. He came into the hospital on 08/21/2022,, complaining of pain in the left lower extremity, and he was found to have significant hematoma underwent evacuation of hematoma and washout of the left doherty. Yesterday, I was notified about this patient that he was found hypotensive, low hemoglobin, patient was confused, and did not improve with 2 L of fluids, hence we transfer the patient to the ICU. In the meantime I recommended a stat CBC and if hemoglobin below 7 to transfuse the patient with 2 units of blood, and start the patient on nor epinephrine after fluid boluses. Patient was seen in the ER today, he already received 1 unit of packed RBCs, and the second unit is pending. His hemoglobin was 6.8 earlier today. Patient is receiving fluids at 0.9 normal saline 75 mL per hour. He already received 2 fluid boluses of saline. Patient is requiring norepinephrine at 0.1 mcg/kg/m. He is on 2 L nasal cannula. His left lower extremity was evaluated, no significant hematoma is noted in the left lower extremity at the surgical site, however the patient does have significant swelling in the left hip area this was evaluated by orthopedics and he had trauma to the quadriceps muscles of the left hip with possible intramuscular hem orrhage. Eliquis remains on hold. Patient received another unit of packed RBCs shortly after I evaluated him, and repeat hemoglobin was 10.6. However the patient was noted to have significant leukocytosis/leukemoid reaction with WBC count of 49.3, however this leukemoid reaction-type of picture has been noted on previous admission on this patient with elevated WBC count as high as 45,000, oncology was consulted on this patient regarding his chronic and intermittent leukocytosis/leukemoid reaction. The patient is seen today 08/24/2022 in follow-up in the intensive care unit. He had undergone evacuation of a hematoma of his left lower extremity on 08/22/2022. He is currently sitting up in bed. Awake and alert in no acute distress. Maintaining O2 saturations in the 90s on room air. He is still requiring norepinephrine at 9 mcg/m. He has normal saline at 75 ML's per hour. White count 31.3. Hemoglobin 10.0. Platelets 232. Sodium 138. Potassium 3.6. Bicarb 20. BUN 28. Creatinine 1.23. Glucose 103. TSH 0.769. Cortisol level XXII. Urinalysis large amount of blood high WBCs and few bacteria. Culture pending. He remains on vancomycin and Zosyn. He will be initiated on Solu- Cortef 50 mg IV every 6 hours. The patient is seen today 08/25/2022 in follow-up in the intensive care unit. He is currently resting comfortably in bed. Awake and alert in no acute distress. He is maintaining good O2 saturations in the 90s on 2 L/m per nasal cannula. His norepinephrine has been off since early this morning. Blood pressure stable. Continued on Solu-Cortef. Receiving normal saline at 100 mL per hour. Remains on antibiotics in the form of vancomycin and cefepime. Blood cultures reveal no growth. Urine culture reveals no growth. White count 20.6. Hemoglobin 10.5. Platelet count 169. Sodium 137. Potassium 4.0. Bicarb 22. BUN 19. Creatinine 1.00. Glucose 122. Calcium 5.7. The patient is seen today 08/26/2022 in follow-up on the regular medical floor. He is currently sitting up in a chair at the bedside. He is currently maintaining good O2 saturations in the 90s on room air. Normal saline at 100 ML's per hour. He is status post 2 units of packed red blood cells this admission. Blood cultures reveal no growth. Urine culture reveals no growth. Creatinine 1.02. GFR 70. Most recent hemoglobin 10.5. Pro-calcitonin 0.66. He remains on Solu-Cortef, antibiotics in the form of vancomycin and cefepime. Anticoagulated with Eliquis. The patient is seen today 08/27/2022 in follow-up on the regular medical floor. He is awake and alert in no acute distress. Currently sitting up in chair at the bedside. He denies any worsening shortness of breath, cough or congestion. Maintaining good O2 saturations in the 90s on room air. Normal saline at 50 MLS per hour. Still is some noted peripheral edema. Blood cultures revealed no growth. Urine culture reveals no growth. White count 21.2. Hemoglobin 9.8. Platelets 200. He is continued on cefepime and vancomycin. ID services are on the case. Anticoagulated with Eliquis. Objective - Vital Signs Vital signs: Vital Signs Temp 97.6 F 08/27/22 12:00 Pulse 73 08/27/22 12:00 Resp 16 08/27/22 12:00 BP 131/68 08/27/22 12:00 Pulse Ox 93 L 08/27/22 12:00 FiO2 Intake & Output 08/26/22 08/27/22 08/27/22 18:59 06:59 18:59 Intake Total 1550 1900 290 Output Total 1170 Balance 1550 1900 -880 Intake: IV 1450 1400 Cefepime 2 gm In Sodium 200 Chloride 0.9% 100 ml @ 25 mls/hr IVPB Q8HR [facility] Rx# :[id number] Sodium Chloride 0.9% 1, 1200 1200 000 ml @ 100 mls/hr IV . Q10H [facility] Rx#:[id number] Vancomycin 1,250 mg In 250 Sodium Chloride 0.9% 250 ml @ 125 mls/hr IVPB Q16H [facility] Rx#:[id number] Intake, IV Titration 100 Amount Sodium Ferric Gluconat- 100 Sucrose 125 mg In Sodium Chloride 0.9% 100 ml @ 100 mls/hr IVPB DAILY [facility] Rx#:[id number] Oral 500 290 Output: Urine 1170 Other: Voiding Method Bedside Commode Bedside Commode Urinal Urinal Urinal # Voids 4 - Exam Physical Exam: Revealed 77-year-old male, very hard of hearing, on room air, in no acute distress. Head: Atraumatic normocephalic. HEENT: PERRLA, EOMI, dry mucous membranes. Neck is supple. No neck masses. No thyromegaly. No JVD. Chest: Diminished breath sound on the left side, normal breath sounds on the right side. No rhonchi no wheezes. Cardiac Exam: Normal S1 and S2, 2/6 systolic murmur at the apex, no gallop, no rub Abdomen: Soft, nontender, no megaly, no rebound, no guarding, normal bowel soun ds. Extremities: No clubbing, no edema, no cyanosis. Surgical dressing noted in the left calf region, related to recent evacuation of hematoma. No evidence of swelling or hematoma recurrence. There is swelling noted over the left hip area laterally. Neurological Exam: Alert and oriented 3. No focal neurologic deficit. Psychiatric: Normal mood affect and normal mental status examination. Skin: No rashes. - Labs CBC & Chem 7: 08/27/22 06:08 08/26/22 08:00 Labs: Abnormal Lab Results - Last 24 Hours (Table) 08/26/22 08/27/22 Range/Units 16:25 06:08 WBC 21.2 H (3.8-10.6) k/uL Hgb 9.8 L (13.0-17.5) gm/dL Hct 32.8 L (39.0-53.0) % MCV 75.4 L (80.0-100.0) fL MCH 22.5 L (25.0-35.0) pg MCHC 29.8 L (31.0-37.0) g/dL RDW 16.8 H (11.5-15.5) % Neutrophils # 17.1 H (1.3-7.7) k/uL Lymphocytes # 0.8 L (1.0-4.8) k/uL Monocytes # 2.4 H (0-1.0) k/uL Urine Protein 1+ H (Negative) Urine Glucose (UA) 4+ H (Negative) Urine Blood Large H (Negative) Urine RBC 47 H (0-5) /hpf Urine Bacteria Rare H (None) /hpf Urine Mucus Rare H (None) /hpf Microbiology - Last 24 Hours (Table) 08/23/22 12:07 Blood Culture - Preliminary Blood No Growth after 72 hours 08/23/22 11:59 Blood Culture - Preliminary Blood No Growth after 72 hours Assessment and Plan Assessment: Acute blood loss anemia, suspect the 2 sources of bleeding are in the left calf region and in the left hip area Left lower extremity hematoma, status post evacuation of hematoma on 08/22/2022. Left hip trauma and intramuscular hemorrhage. Being addressed by orthopedics on the case. Anemia, status post 2 units of packed RBCs, current hemoglobin 9.8. Hypotension secondary to blood loss anemia and hypovolemia, definitely doubt sepsis as his presentation does not seem to be a septic presentation. History of pacemaker implantation for tachybradycardia syndrome. History of hypertension History of hypothyroidism History of non-small cell lung cancer and previous left-sided pneumonectomy in 2008 Ex-smoker Plan: The patient was seen and evaluated Labs and medications reviewed Currently stable and on room air Cleared for discharge once cleared by medicine Plan is for subacute rehabilitation an ECF I have personally seen and examined the patient, performed the documentation and the assessment and plan as written. Number of minutes spent on the visit: 10.
[2022-08-27] MEDS: LOSARTAN 25 MG TAB PO SCH (20:38)
[2022-08-27] MEDS: traZODone HCL 100 MG TAB PO SCH (20:38)
[2022-08-27] MEDS: ATORVASTATIN 80 MG TAB PO SCH (20:38)
[2022-08-28] MEDS: SODIUM CHLORIDE 0.9% 1,000 ML IV SCH (03:21)
[2022-08-28] MEDS: HYDROmorphone 0.5 MG/0.5 ML SYRINGE IVP PRN ×3 (03:48→10:29)
[2022-08-28] MEDS: ACETAMINOPHEN TAB 500 MG TAB PO PRN (05:28)
[2022-08-28] MEDS: LEVOTHYROXINE 88 MCG TAB PO SCH (05:48)
[2022-08-28] MEDS ORDERED: VANCOMYCIN TROUGH DUE 1 EACH MISC MISCELLANE ONE (08:00)
[2022-08-28] MEDS: SODIUM FERRIC GLUCONAT-SUCROSE 125 MG in SODIUM CHLORIDE 0.9% 100 ML IVPB SCH (08:31)
[2022-08-28] MEDS: DAPAGLIFLOZIN PROPANEDIOL 5 MG TABLET PO SCH (08:32)
[2022-08-28] MEDS: METOPROLOL TARTRATE 25 MG TAB PO SCH (08:32)
[2022-08-28] MEDS: APIXABAN 5 MG TAB PO SCH (08:33)
[2022-08-28 09:29] VITALS: BMI 26.2
[2022-08-28 10:04] LABS: African American GFR (CKD) 67 (>60 ml/min/1.73 sqM); Anion Gap 7 mmol/L; Blood Urea Nitrogen 17 mg/dL (9-20); Carbon Dioxide 23 mmol/L (22-30); Chloride 110 mmol/L (98-107); Glucose 101 mg/dL (74-99); Non-African American GFR(CKD) 58 (>60 ml/min/1.73 sqM); Potassium 2.8 mmol/L (3.5-5.1); Sodium 140 mmol/L (137-145)
[2022-08-28 10:09] LABS: Calcium 5.6 mg/dL (8.4-10.2)
[2022-08-28] MEDS: CEFEPIME 2 GM in SODIUM CHLORIDE 0.9% 100 ML IVPB SCH (10:27)
[2022-08-28 11:36] LABS: Anisocytosis Slight; HCT 34.5 % (39.0-53.0); HGB 10.4 gm/dL (13.0-17.5); Hypochromasia Marked; MCH 22.7 pg (25.0-35.0); MCHC 30.1 g/dL (31.0-37.0); MCV 75.4 fL (80.0-100.0); Mean Platelet Volume 10.5; Microcytosis Slight; Platelet Count 208 k/uL (150-450); Poikilocytosis Slight; RBC 4.57 m/uL (4.30-5.90); RDW 17.1 % (11.5-15.5)
[2022-08-28 12:17] VITALS: BP 146/81; PULSE 63; TEMP 97.4
--- NOTE | 2022-08-28 12:37 | P.PN ---
Subjective Progress Note Date: 08/28/22 This is a 77-year-old white male with history of multiple medical problems including chronic atrial fibrillation, maintained on a course, history of non- small cell lung cancer and previous left-sided pneumonectomy, history of tachybradycardia syndrome and previous pacemaker implantation, hypertension, hyp othyroidism, patient sustained a fall about 10 days ago, landed on his left side, and sustained swelling to the left lower extremity and to the left hip area. He came into the hospital on 08/21/2022,, complaining of pain in the left lower extremity, and he was found to have significant hematoma underwent evacuation of hematoma and washout of the left doherty. Yesterday, I was notified about this patient that he was found hypotensive, low hemoglobin, patient was confused, and did not improve with 2 L of fluids, hence we transfer the patient to the ICU. In the meantime I recommended a stat CBC and if hemoglobin below 7 to transfuse the patient with 2 units of blood, and start the patient on nor epinephrine after fluid boluses. Patient was seen in the ER today, he already received 1 unit of packed RBCs, and the second unit is pending. His hemoglobin was 6.8 earlier today. Patient is receiving fluids at 0.9 normal saline 75 mL per hour. He already received 2 fluid boluses of saline. Patient is requiring norepinephrine at 0.1 mcg/kg/m. He is on 2 L nasal cannula. His left lower extremity was evaluated, no significant hematoma is noted in the left lower extremity at the surgical site, however the patient does have significant swelling in the left hip area this was evaluated by orthopedics and he had trauma to the quadriceps muscles of the left hip with possible intramuscular hem orrhage. Eliquis remains on hold. Patient received another unit of packed RBCs shortly after I evaluated him, and repeat hemoglobin was 10.6. However the patient was noted to have significant leukocytosis/leukemoid reaction with WBC count of 49.3, however this leukemoid reaction-type of picture has been noted on previous admission on this patient with elevated WBC count as high as 45,000, oncology was consulted on this patient regarding his chronic and intermittent leukocytosis/leukemoid reaction. The patient is seen today 08/24/2022 in follow-up in the intensive care unit. He had undergone evacuation of a hematoma of his left lower extremity on 08/22/2022. He is currently sitting up in bed. Awake and alert in no acute distress. Maintaining O2 saturations in the 90s on room air. He is still requiring norepinephrine at 9 mcg/m. He has normal saline at 75 ML's per hour. White count 31.3. Hemoglobin 10.0. Platelets 232. Sodium 138. Potassium 3.6. Bicarb 20. BUN 28. Creatinine 1.23. Glucose 103. TSH 0.769. Cortisol level XXII. Urinalysis large amount of blood high WBCs and few bacteria. Culture pending. He remains on vancomycin and Zosyn. He will be initiated on Solu- Cortef 50 mg IV every 6 hours. The patient is seen today 08/25/2022 in follow-up in the intensive care unit. He is currently resting comfortably in bed. Awake and alert in no acute distress. He is maintaining good O2 saturations in the 90s on 2 L/m per nasal cannula. His norepinephrine has been off since early this morning. Blood pressure stable. Continued on Solu-Cortef. Receiving normal saline at 100 mL per hour. Remains on antibiotics in the form of vancomycin and cefepime. Blood cultures reveal no growth. Urine culture reveals no growth. White count 20.6. Hemoglobin 10.5. Platelet count 169. Sodium 137. Potassium 4.0. Bicarb 22. BUN 19. Creatinine 1.00. Glucose 122. Calcium 5.7. The patient is seen today 08/26/2022 in follow-up on the regular medical floor. He is currently sitting up in a chair at the bedside. He is currently maintaining good O2 saturations in the 90s on room air. Normal saline at 100 ML's per hour. He is status post 2 units of packed red blood cells this admission. Blood cultures reveal no growth. Urine culture reveals no growth. Creatinine 1.02. GFR 70. Most recent hemoglobin 10.5. Pro-calcitonin 0.66. He remains on Solu-Cortef, antibiotics in the form of vancomycin and cefepime. Anticoagulated with Eliquis. The patient is seen today 08/27/2022 in follow-up on the regular medical floor. He is awake and alert in no acute distress. Currently sitting up in chair at the bedside. He denies any worsening shortness of breath, cough or congestion. Maintaining good O2 saturations in the 90s on room air. Normal saline at 50 MLS per hour. Still is some noted peripheral edema. Blood cultures revealed no growth. Urine culture reveals no growth. White count 21.2. Hemoglobin 9.8. Platelets 200. He is continued on cefepime and vancomycin. ID services are on the case. Anticoagulated with Eliquis. The patient is seen today 08/28/2022 in follow-up on the regular medical floor. He is resting in bed. Awake and alert in no acute distress. Maintaining O2 saturations in the 90s on room air. He has normal saline at 20 ML's per hour. white count 23.0. Hemoglobin 10.4. Platelets 208. Sodium 140. Potassium 2.8. Bicarb 23. BUN 17. Creatinine 1.15. Urine culture revealed no growth. Blood cultures revealed no growth. He remains on vancomycin and cefepime per ID services. Anticoagulated with Eliquis. Objective - Vital Signs Vital signs: Vital Signs Temp 97.4 F L 08/28/22 11:29 Pulse 63 08/28/22 11:29 Resp 16 08/28/22 11:29 BP 146/81 08/28/22 11:29 Pulse Ox 93 L 08/28/22 11:29 FiO2 21 08/28/22 08:30 Intake & Output 08/27/22 08/28/22 08/28/22 18:59 06:59 18:59 Intake Total 290 1100 Output Total 2520 500 300 Balance -2230 600 -300 Weight 82.8 kg Intake: IV 100 Cefepime 2 gm In Sodium 100 Chloride 0.9% 100 ml @ 25 mls/hr IVPB Q8HR [facility] Rx# :[id number] Oral 290 1000 Output: Urine 2520 500 300 Other: Voiding Method Urinal Urinal Urinal # Voids 4 4 - Exam Physical Exam: Revealed a 77-year-old male, very hard of hearing, resting in bed,on room air, in no acute distress. Head: Atraumatic normocephalic. HEENT: PERRLA, EOMI, dry mucous membranes. Neck is supple. No neck masses. No thyromegaly. No JVD. Chest: Diminished breath sound on the left side, normal breath sounds on the right side. No rhonchi no wheezes. Cardiac Exam: Normal S1 and S2, 2/6 systolic murmur at the apex, no gallop, no rub Abdomen: Soft, nontender, no megaly, no rebound, no guarding, normal bowel so unds. Extremities: No clubbing, no edema, no cyanosis. Surgical dressing noted in the left calf region, related to recent evacuation of hematoma. No evidence of swelling or hematoma recurrence. There is swelling noted over the left hip area laterally. Neurological Exam: Alert and oriented 3. No focal neurologic deficit. Psychiatric: Normal mood affect and normal mental status examination. Skin: No rashes. - Labs CBC & Chem 7: 08/28/22 07:49 08/28/22 07:49 Labs: Abnormal Lab Results - Last 24 Hours (Table) 08/28/22 08/28/22 Range/Units 07:49 07:49 WBC 23.0 H (3.8-10.6) k/uL Hgb 10.4 L (13.0-17.5) gm/dL Hct 34.5 L (39.0-53.0) % MCV 75.4 L (80.0-100.0) fL MCH 22.7 L (25.0-35.0) pg MCHC 30.1 L (31.0-37.0) g/dL RDW 17.1 H (11.5-15.5) % Potassium 2.8 L (3.5-5.1) mmol/L Chloride 110 H (98-107) mmol/L Glucose 101 H (74-99) mg/dL Calcium 5.6 L* (8.4-10.2) mg/dL Microbiology - Last 24 Hours (Table) 08/23/22 11:59 Blood Culture - Preliminary Blood No Growth after 96 hours 08/23/22 12:07 Blood Culture - Preliminary Blood No Growth after 96 hours Assessment and Plan Assessment: Acute blood loss anemia, suspect the 2 sources of bleeding are in the left calf region and in the left hip area Left lower extremity hematoma, status post evacuation of hematoma on 08/22/2022. Left hip trauma and intramuscular hemorrhage. Being addressed by orthopedics on the case. Anemia, status post 2 units of packed RBCs, current hemoglobin 10.4. Hypotension secondary to blood loss anemia and hypovolemia, definitely doubt sepsis as his presentation does not seem to be a septic presentation. History of pacemaker implantation for tachybradycardia syndrome. History of hypertension History of hypothyroidism History of non-small cell lung cancer and previous left-sided pneumonectomy in 2008 Ex-smoker Plan: The patient was seen and evaluated Labs and medications reviewed Currently stable and on room air Cleared for discharge once cleared by medicine Plan is for subacute rehabilitation an ECF We will see as needed I have personally seen and examined the patient, performed the documentation and the assessment and plan as written. Number of minutes spent on the visit: 10.
[2022-08-28] MEDS ORDERED: ACETAMINOPHEN TAB 500 MG TAB PO PRN (13:02)
[2022-08-28 13:25] LABS: Band Neutrophils % 3 %; Lymphocytes # (M) 0.69 k/uL (1.0-4.8); Monocytes # (M) 3.68 k/uL (0-1.0); Neutrophils % (M) 78 %; Nucleated Red Blood Cells 0 /100 WBC (0-0); Total Cells Counted 100
[2022-08-28 13:26] LABS: Anisocytosis (M) Present; Polychromasia Present
--- NOTE | 2022-08-28 15:53 | P.PN ---
Subjective Progress Note Date: 08/27/22 Principal diagnosis: SIRS and left leg hematoma Patient is a 77-year male with multiple comorbidities including non- small cell lung cancer s/p lobectomy hypertension coronary disease paroxysmal atrial fibrillation patient recently did have a prostate biopsy done at his urologist office on the way out of the office the patient did fell down and landed on his left lower extremity, subsequently admitted to the hospital with weakness hypertension left leg hematoma which has been drained admitted to ICU because of hypotension and elevated white count. On today's evaluation that is 08/27/2022, the patient continues to be afebrile, patient is breathing comfortably on room air, patient denies chest pain or shortness of breath and denies abdominal pain. Left leg pain is currently controlled Objective - Vital Signs Vital signs: Vital Signs Temp 97.6 F 08/27/22 12:00 Pulse 73 08/27/22 12:00 Resp 16 08/27/22 12:00 BP 131/68 08/27/22 12:00 Pulse Ox 93 L 08/27/22 12:00 FiO2 Intake & Output 08/26/22 08/27/22 08/27/22 18:59 06:59 18:59 Intake Total 1550 1900 290 Output Total 1170 Balance 1550 1900 -880 Intake: IV 1450 1400 Cefepime 2 gm In Sodium 200 Chloride 0.9% 100 ml @ 25 mls/hr IVPB Q8HR [facility] Rx# :[id number] Sodium Chloride 0.9% 1, 1200 1200 000 ml @ 100 mls/hr IV . Q10H [facility] Rx#:[id number] Vancomycin 1,250 mg In 250 Sodium Chloride 0.9% 250 ml @ 125 mls/hr IVPB Q16H [facility] Rx#:[id number] Intake, IV Titration 100 Amount Sodium Ferric Gluconat- 100 Sucrose 125 mg In Sodium Chloride 0.9% 100 ml @ 100 mls/hr IVPB DAILY [facility] Rx#:[id number] Oral 500 290 Output: Urine 1170 Other: Voiding Method Bedside Commode Bedside Commode Urinal Urinal Urinal # Voids 4 - Exam GENERAL DESCRIPTION: An elderly male lying in bed in no distress RESPIRATORY SYSTEM: Unlabored breathing , decreased breath sounds at bases HEART: S1 S2 regular rate and rhythm , ABDOMEN: Soft , no tenderness EXTREMITIES: Left leg is currently dressed - Labs CBC & Chem 7: 03/24/23 07:49 08/28/22 07:49 Labs: Abnormal Lab Results - Last 24 Hours (Table) 08/26/22 08/27/22 Range/Units 16:25 06:08 WBC 21.2 H (3.8-10.6) k/uL Hgb 9.8 L (13.0-17.5) gm/dL Hct 32.8 L (39.0-53.0) % MCV 75.4 L (80.0-100.0) fL MCH 22.5 L (25.0-35.0) pg MCHC 29.8 L (31.0-37.0) g/dL RDW 16.8 H (11.5-15.5) % Neutrophils # 17.1 H (1.3-7.7) k/uL Lymphocytes # 0.8 L (1.0-4.8) k/uL Monocytes # 2.4 H (0-1.0) k/uL Urine Protein 1+ H (Negative) Urine Glucose (UA) 4+ H (Negative) Urine Blood Large H (Negative) Urine RBC 47 H (0-5) /hpf Urine Bacteria Rare H (None) /hpf Urine Mucus Rare H (None) /hpf Microbiology - Last 24 Hours (Table) 08/23/22 12:07 Blood Culture - Preliminary Blood No Growth after 72 hours 08/23/22 11:59 Blood Culture - Preliminary Blood No Growth after 72 hours Assessment and Plan (1) Leukocytosis Current Visit: Yes Status: Acute Priority: High Code(s): D72.829 - ELEVATED WHITE BLOOD CELL COUNT, UNSPECIFIED SNOMED Code(s): 197511527 Plan: 1patient with SIRS in this patient who did have a significant hypotension requiring pressor support also noticed to have elevated white count patient who was recently did have a fall with significant hematoma to the left leg s/p evacuation patient did not have any fever during this hospital stay and no evidence of any purulence to the left lower extremity or any cellulitis Per Ortho note, underlying infection less likely but not entirely excluded. 2patient has shown clinical improvement and culture have been negative for any resistant pathogen so far patient will continue vancomycin and cefepime however plan to finish therapy with oral Ceftin as discussed with the primary team [employer] Time with Patient: Less than 30
--- NOTE | 2022-08-28 15:54 | P.PN ---
Subjective Progress Note Date: 08/28/22 Principal diagnosis: SIRS and left leg hematoma Patient is a 77-year male with multiple comorbidities including non- small cell lung cancer s/p lobectomy hypertension coronary disease paroxysmal atrial fibrillation patient recently did have a prostate biopsy done at his urologist office on the way out of the office the patient did fell down and landed on his left lower extremity, subsequently admitted to the hospital with weakness hypertension left leg hematoma which has been drained admitted to ICU because of hypotension and elevated white count. On today's evaluation that is 08/28/2022, the patient remains to be afebrile, patient is breathing comfortably on room air, patient denies chest pain or shortness of breath, no nausea no vomiting no abdominal pain no diarrhea pain to the left leg is controlled Objective - Vital Signs Vital signs: Vital Signs Temp 97.4 F L 08/28/22 11:29 Pulse 63 08/28/22 11:29 Resp 16 08/28/22 11:29 BP 146/81 08/28/22 11:29 Pulse Ox 93 L 08/28/22 11:29 FiO2 21 08/28/22 08:30 Intake & Output 08/27/22 08/28/22 08/28/22 18:59 06:59 18:59 Intake Total 290 1100 Output Total 2520 500 300 Balance -2230 600 -300 Weight 82.8 kg Intake: IV 100 Cefepime 2 gm In Sodium 100 Chloride 0.9% 100 ml @ 25 mls/hr IVPB Q8HR [facility] Rx# :[id number] Oral 290 1000 Output: Urine 2520 500 300 Other: Voiding Method Urinal Urinal Urinal # Voids 4 4 - Exam GENERAL DESCRIPTION: An elderly male lying in bed in no distress RESPIRATORY SYSTEM: Unlabored breathing , decreased breath sounds at bases HEART: S1 S2 regular rate and rhythm , ABDOMEN: Soft , no tenderness EXTREMITIES: Left leg is currently dressed - Labs CBC & Chem 7: 08/28/22 07:49 08/28/22 07:49 Labs: Abnormal Lab Results - Last 24 Hours (Table) 08/28/22 08/28/22 Range/Units 07:49 07:49 WBC 23.0 H (3.8-10.6) k/uL Hgb 10.4 L (13.0-17.5) gm/dL Hct 34.5 L (39.0-53.0) % MCV 75.4 L (80.0-100.0) fL MCH 22.7 L (25.0-35.0) pg MCHC 30.1 L (31.0-37.0) g/dL RDW 17.1 H (11.5-15.5) % Potassium 2.8 L (3.5-5.1) mmol/L Chloride 110 H (98-107) mmol/L Glucose 101 H (74-99) mg/dL Calcium 5.6 L* (8.4-10.2) mg/dL Microbiology - Last 24 Hours (Table) 08/23/22 11:59 Blood Culture - Preliminary Blood No Growth after 96 hours 08/23/22 12:07 Blood Culture - Preliminary Blood No Growth after 96 hours Assessment and Plan (1) Leukocytosis Current Visit: Yes Status: Acute Priority: High Code(s): D72.829 - ELEVATED WHITE BLOOD CELL COUNT, UNSPECIFIED SNOMED Code(s): 233108139 Plan: 1patient with SIRS in this patient who did have a significant hypotension requiring pressor support also noticed to have elevated white count patient who was recently did have a fall with significant hematoma to the left leg s/p evacuation patient did not have any fever during this hospital stay and no evidence of any purulence to the left lower extremity or any cellulitis Per Ortho note, underlying infection less likely but not entirely excluded. 2patient has shown clinical improvement and culture have been negative for any resistant pathogen, we'll go ahead and discontinue vancomycin and continue cefepime recheck his inflammatory markers with a.m. lab as white count is still elevated Time with Patient: Less than 30
[2022-08-28] MEDS ORDERED: FLUCONAZOLE 100 MG TAB PO SCH (16:15)
[2022-08-28] MEDS ORDERED: VANCOMYCIN 1,250 MG in SODIUM CHLORIDE 0.9% 250 ML IVPB SCH (18:00)
--- NOTE | 2022-08-28 18:32 | P.PN ---
Subjective Progress Note Date: 08/28/22 Principal diagnosis: Leukocytosis/anemia Upon visit today pt reports feeling well today. Hgb stable, 10.4 today. No reported episodes of bleeding. No other reported complaints noted Objective - Vital Signs Vital signs: Vital Signs Temp 97.4 F L 08/28/22 11:29 Pulse 63 08/28/22 11:29 Resp 16 08/28/22 11:29 BP 146/81 08/28/22 11:29 Pulse Ox 93 L 08/28/22 11:29 FiO2 21 08/28/22 08:30 Intake & Output 08/27/22 08/28/22 08/28/22 18:59 06:59 18:59 Intake Total 290 1100 Output Total 2520 500 550 Balance -2230 600 -550 Weight 82.8 kg Intake: IV 100 Cefepime 2 gm In Sodium 100 Chloride 0.9% 100 ml @ 25 mls/hr IVPB Q8HR [facility] Rx# :[id number] Oral 290 1000 Output: Urine 2520 500 550 Other: Voiding Method Urinal Urinal Urinal # Voids 4 4 # Bowel Movements 1 - Constitutional General appearance: Present: average body habitus, no acute distress - EENT Eyes: Present: anicteric sclerae, EOMI ENT: Present: hard of hearing - Respiratory Details: breathing is even and unlabored - Cardiovascular Details: skin warm and dry - Gastrointestinal General gastrointestinal: Present: soft. Absent: tenderness - Integumentary Integumentary: Present: normal - Musculoskeletal Musculoskeletal: Present: strength equal bilaterally - Psychiatric Psychiatric: Present: A&O x's 3, appropriate affect, intact judgment & insight - Labs CBC & Chem 7: 08/28/22 07:49 08/28/22 07:49 Labs: Abnormal Lab Results - Last 24 Hours (Table) 08/28/22 08/28/22 Range/Units 07:49 07:49 WBC 23.0 H (3.8-10.6) k/uL Hgb 10.4 L (13.0-17.5) gm/dL Hct 34.5 L (39.0-53.0) % MCV 75.4 L (80.0-100.0) fL MCH 22.7 L (25.0-35.0) pg MCHC 30.1 L (31.0-37.0) g/dL RDW 17.1 H (11.5-15.5) % Neutrophils # (Manual) 18.60 H (1.3-7.7) k/uL Lymphocytes # (Manual) 0.69 L (1.0-4.8) k/uL Monocytes # (Manual) 3.68 H (0-1.0) k/uL Potassium 2.8 L (3.5-5.1) mmol/L Chloride 110 H (98-107) mmol/L Glucose 101 H (74-99) mg/dL Calcium 5.6 L* (8.4-10.2) mg/dL Microbiology - Last 24 Hours (Table) 08/23/22 12:07 Blood Culture - Preliminary Blood No Growth after 120 hours 08/23/22 11:59 Blood Culture - Preliminary Blood No Growth after 120 hours Assessment and Plan (1) Leukocytosis Status: Acute Priority: High Code(s): D72.829 - ELEVATED WHITE BLOOD CELL COUNT, UNSPECIFIED SNOMED Code(s): 208049227 (2) Anemia Status: Acute Priority: High Code(s): D64.9 - ANEMIA, UNSPECIFIED SNOMED Code(s): 247339364 Plan: Anemia: -Hemoglobin stable, 10.4 today. Has received 2 units PRBCs during admission -Hemolysis and DIC workup negative. -Iron studies consistent with WILMER. IV iron ordered x 3 doses. Acute drop in hgb likely related to LLE hematoma and recent evacuation. However, UA revealed hematuria/RBCs. Repeat UA still showed RBCs, but improved. Renal US revealed no hydronephrosis. There may be some underlying chronic medical renal disease. Prostatomegaly of 5.6 cm wide. -GI consult placed to r/o GI bleed. GI has no plan for scopes at this time. States he had EDG/colonoscopy within the last 2 yrs for anemia workup. No signs of bleeding, and believe anemia is likely r/t hematoma/evacuation -Will continue to monitor counts. -Please transfuse for hemoglobin less than 7 or if symptomatic Leukoctyosis/cytopenia: -Consulted to r/o underlying MDS. WBC 23.26, ANC 18.6, lymphocytes 0.70, and eos inophils 0.0. However, leukocytosis has been noted in lab work since early 2020. WBC was noted at 49.3 during admission, which was substantially higher than at admission. -ID following, blood cultures and urine cultures negative. Continues on cefepime, ID plans to recheck inflammatory markers -Leukocytosis likely reactive related to acute inflammatory process and acute blood loss. However, due to long standing luekocytosis will further workup leukemoid reaction to r/o underlying bone marrow etiologies -MGUS workup negative. Immunofixation negative for paraproteinemia. Serum lambda/kappa LC ratio 1.56. -Will have clinic f/u in approx 3 weeks once pt recovers from acute hematoma/evacuation attests: I have performed H&P and developed impression and plan care for patient, discussed with dictator. I agree with dictated note, documented as a scribe
[2022-08-28] MEDS ORDERED: CEFEPIME 2 GM in SODIUM CHLORIDE 0.9% 100 ML IVPB SCH (21:00)
== END 2022-08-28 17:40 | DRG 579 ==
LOC: EC 11:33 → 6NMEDSUR 15:04 → OBSVTOIN 08-23 02:26 → 2SICU 08-23 02:31 → 5NMEDONC 08-25 21:30
PROVIDERS: ADMIT Internal Medicine; ATTEND Internal Medicine
PROC: 0JCP0ZZ Extirpation of Matter from Left Lower Leg Subcutaneous Tissue and Fascia, Open Approach (ICD-10-PCS; 2022-08-22)
PROC: 30233N1 Transfusion of Nonautologous Red Blood Cells into Peripheral Vein, Percutaneous Approach (ICD-10-PCS; principal; 2022-08-23)
PROC: 3E033XZ Introduction of Vasopressor into Peripheral Vein, Percutaneous Approach (ICD-10-PCS; 2022-08-23)
DX: S80.12XA Contusion of left lower leg, initial encounter (principal); R57.1 Hypovolemic shock; N17.9 Acute kidney failure, unspecified; D62 Acute posthemorrhagic anemia; I48.20 Chronic atrial fibrillation, unspecified; I50.32 Chronic diastolic (congestive) heart failure; I95.81 Postprocedural hypotension; I49.5 Sick sinus syndrome; G62.1 Alcoholic polyneuropathy; I11.0 Hypertensive heart disease with heart failure; F10.11 Alcohol abuse, in remission; E03.9 Hypothyroidism, unspecified; I34.0 Nonrheumatic mitral (valve) insufficiency; S70.10XA Contusion of unspecified thigh, initial encounter; I25.10 Atherosclerotic heart disease of native coronary artery without angina pectoris; H91.90 Unspecified hearing loss, unspecified ear; R29.6 Repeated falls; E78.5 Hyperlipidemia, unspecified; N40.0 Benign prostatic hyperplasia without lower urinary tract symptoms; R31.0 Gross hematuria; D72.823 Leukemoid reaction; E86.1 Hypovolemia; R82.81 Pyuria; W18.30XA Fall on same level, unspecified, initial encounter; Z91.81 History of falling; Z85.46 Personal history of malignant neoplasm of prostate; Z87.19 Personal history of other diseases of the digestive system; Y92.009 Unspecified place in unspecified non-institutional (private) residence as the place of occurrence of the external cause; Z95.0 Presence of cardiac pacemaker; Z82.49 Family history of ischemic heart disease and other diseases of the circulatory system; I25.2 Old myocardial infarction; Z90.2 Acquired absence of lung [part of]; Z85.118 Personal history of other malignant neoplasm of bronchus and lung; Z80.0 Family history of malignant neoplasm of digestive organs; Z79.899 Other long term (current) drug therapy; Z79.890 Hormone replacement therapy; Z79.01 Long term (current) use of anticoagulants; Z79.84 Long term (current) use of oral hypoglycemic drugs; Z87.891 Personal history of nicotine dependence
CPT/HCPCS: 36415; 73502; 76770; 80048; 80053; 80202; 81001; 82247; 82525; 82533; 82565; 82607; 82728; 82746; 83010; 83540; 83550; 83615; 83735; 83883; 83921; 84100; 84145; 84153; 84165; 84443; 84484; 84550; 85025; 85045; 85384; 85610; 85730; 86334; 86850; 86900; 86901; 86920; 87040; 87086; 93308; 94760; 96361; 96374; 96375; 99285

== ENCOUNTER 2022-09-17 10:26 | Emergency (ER) | payer MEDICARE ==
[2022-09-17 10:36] VITALS: TEMP 98.3
[2022-09-17] MEDS ORDERED: OXYMETAZOLINE 0.05% NASL SPRAY 1 SPRAY BOTTLE NASAL STA (10:47)
[2022-09-17 11:47] LABS: Anisocytosis Moderate; HCT 30.9 % (39.0-53.0); Hypochromasia Slight; MCH 23.8 pg (25.0-35.0); MCHC 32.4 g/dL (31.0-37.0); MCV 73.6 fL (80.0-100.0); Mean Platelet Volume 9.9; Microcytosis Marked; Platelet Count 195 k/uL (150-450); RDW 21.2 % (11.5-15.5); WBC 18.4 k/uL (3.8-10.6)
[2022-09-17 12:05] LABS: INR 1.2 (<1.2); Partial Thromboplastin Time 26.7 sec (22.0-30.0); Prothrombin Time 12.5 sec (9.0-12.0)
[2022-09-17 12:13] LABS: Albumin 3.3 g/dL (3.5-5.0); Potassium 2.9 mmol/L (3.5-5.1); Total Bilirubin 3.8 mg/dL (0.2-1.3)
[2022-09-17 12:19] LABS: Calcium 5.4 mg/dL (8.4-10.2)
[2022-09-17] MEDS ORDERED: POTASSIUM CHLORIDE ER 20 MEQ TAB.ER PO STA (12:24)
[2022-09-17 12:49] LABS: Lymphocytes # (M) 0.74 k/uL (1.0-4.8); Monocytes # (M) 2.39 k/uL (0-1.0); Neutrophils # (M) 15.46 k/uL (1.3-7.7); Neutrophils % (M) 84 %; Nucleated Red Blood Cells 0 /100 WBC (0-0); Poikilocytosis (M) Present; Total Cells Counted 200
[2022-09-17] MEDS ORDERED: CALCIUM GLUCONATE IN NACL 1 GM in SALINE 1 100ML.BAG IVPB ONE (13:00)
--- NOTE | 2022-09-17 13:17 | ED ---
ENT HPI - General Chief complaint: ENT Stated complaint: Nose Bleed Time Seen by Provider: 09/17/22 10:38 Source: patient Mode of arrival: ambulatory Limitations: no limitations - History of Present Illness Initial comments: Patient is a 77-year-old male who presents to the emergency department for nosebleed. Patient has had intermittent bleeding out of his left nostril for the past 2 days. He is on Eliquis for atrial fibrillation. Patient has had n osebleeds in the past. He denies any recent falls or injury to the face. He denies weakness, lightheadedness, chest pain, shortness of breath. No fever, chills, abdominal pain, nausea, vomiting. - Related Data Home Medications Medication Instructions Recorded Confirmed Atorvastatin [Lipitor] 80 mg PO HS 06/11/20 08/21/22 Magnesium Oxide 400 mg PO DAILY PRN 12/23/20 08/21/22 Empagliflozin [Jardiance] 10 mg PO DAILY 08/21/22 08/21/22 Ipratropium-Albuterol Nebulize 3 ml INHALATION RT-QID PRN 08/21/22 08/21/22 [Duoneb 0.5 mg-3 mg/3 ml Soln] Levothyroxine Sodium [Synthroid] 88 mcg PO DAILY 08/21/22 08/21/22 traZODone HCL [Desyrel] 100 mg PO HS 08/21/22 08/21/22 Previous Rx's Medication Instructions Recorded Apixaban [Eliquis] 5 mg PO BID #60 tab 10/22/21 Bumetanide [BUMEX] 1 mg PO DAILY #0 08/26/22 Losartan [Cozaar] 25 mg PO HS #30 tab 08/26/22 Metoprolol Tartrate [Lopressor] 25 mg PO BID #60 tab 08/26/22 cefUROXime axetiL [Ceftin] 500 mg PO BID 7 Days #14 tab 08/26/22 Allergies Allergy/AdvReac Type Severity Reaction Status Date / Time No Known Allergies Allergy Verified 09/17/22 10:36 Review of Systems ROS Statement: Those systems with pertinent positive or pertinent negative responses have been documented in the HPI. ROS Other: All systems not noted in ROS Statement are negative. Past Medical History Past Medical History: Coronary Artery Disease (CAD), Hypertension, Thyroid Disorder Additional Past Medical History / Comment(s): vertigo Last Myocardial Infarction Date:: 2013 History of Any Multi-Drug Resistant Organisms: None Reported Past Surgical History: Hernia Repair, Pacemaker Additional Past Surgical History / Comment(s): Left lung removed Past Anesthesia/Blood Transfusion Reactions: No Reported Reaction Type of Cardiac Device: Unknown Device Placement Date:: June, Past Psychological History: No Psychological Hx Reported Smoking Status: Never smoker Past Alcohol Use History: None Reported Past Drug Use History: None Reported - Past Family History Father Family Medical History: Memory Impairment Additional Family Medical History / Comment(s): Father at age 71 from a myocardial infarction. Mother Family Medical History: No Reported History Additional Family Medical History / Comment(s): Mother at age 92 from old age. Brother(s) Additional Family Medical History / Comment(s): Patient has 3 brothers alive with no major medical problems. One brother is dying from stomach cancer. Sister(s) Additional Family Medical History / Comment(s): Patient has one sister and she is alive. History of hypertension and hyperlipidemia. General Exam Limitations: no limitations General appearance: alert, in no apparent distress Head exam: Present: atraumatic, normocephalic, normal inspection Eye exam: Present: normal appearance, PERRL, EOMI. Absent: scleral icterus, conjunctival injection, periorbital swelling ENT exam: Present: other (mild bleeding from left nare no evidence of injury or trauma. No evidence of bleeding from right nare) Respiratory exam: Present: normal lung sounds bilaterally. Absent: respiratory distress, wheezes, rales, rhonchi, stridor Cardiovascular Exam: Present: regular rate, normal rhythm, normal heart sounds. Absent: systolic murmur, diastolic murmur, rubs, gallop, clicks Neurological exam: Present: alert, CN II-XII intact Psychiatric exam: Present: normal affect, normal mood Skin exam: Present: warm, dry, intact, normal color. Absent: rash Course Vital Signs 09/17/22 10:32 Temperature 98.3 F Pulse Rate 87 Respiratory 18 Rate Blood Pressure 110/55 O2 Sat by Pulse 93 L Oximetry Medical Decision Making - Medical Decision Making Was pt. sent in by a medical professional or institution (, PA, SERVICE SPECIALIST, urgent care, hospital, or senior care...) When possible be specific @ -No Did you speak to anyone other than the patient for history (EMS, parent, family, police, friend...)? What history was obtained from this source @ Yes, patient's sister- who helped provide history Did you review nursing and triage notes (agree or disagree)? Why? @ -I reviewed and agree with nursing and triage notes Were old charts reviewed (outside hosp., previous admission, EMS record, old EKG, old radiological studies, urgent care reports/EKG's, senior care records)? Report findings @ -No old charts were reviewed Differential Diagnosis (chest pain, altered mental status, abdominal pain women, abdominal pain men, vaginal bleeding, weakness, fever, dyspnea, syncope, headache, dizziness, GI bleed, back pain, seizure, CVA, palpatations, mental health)? @ -epistaxis, anemia, nasal fracture, nasal dryness, tumor, coagulopathy EKG interpreted by me (3pts min.). @ -As above X-rays interpreted by me (1pt min.). @ -None done CT interpreted by me (1pt min.). @ -None done U/S interpreted by me (1pt. min.). @ -None done What testing was considered but not performed or refused? (CT, X-rays, U/S, labs)? Why? @ -None What meds were considered but not given or refused? Why? @ -None Did you discuss the management of the patient with other professionals (professionals i.e. , PA, SERVICE SPECIALIST, lab, RT, psych nurse, social sciences research scientist, learning analyst, teacher, uniform patrol police officer, piano case maker)? Give summary @ -No Was smoking cessation discussed for >3mins.? @ -No Was critical care preformed (if so, how long)? @ -No Were there social determinants of health that impacted care today? How? (Homelessness, low income, unemployed, alcoholism, drug addiction, transportation, low edu. Level, literacy, decrease access to med. care, penitentiary, rehab)? @ -No Was there de-escalation of care discussed even if they declined (Discuss DNR or withdrawal of care, Hospice)? DNR status @ -No What co-morbidities impacted this encounter? (DM, HTN, Smoking, COPD, CAD, Cancer, CVA, ARF, Chemo, Hep., AIDS, mental health diagnosis, sleep apnea, morbid obesity)? @ -None Was patient admitted / discharged? Hospital course, mention meds given and route, prescriptions, significant lab abnormalities, going to OR and other pertinent info. @ -Patient presenting for nosebleed. There is mild active bleeding from the left naris. Patient is hemodynamically stable. He is on blood thinners and with report of intermittent blood loss over the past 2 days I did obtain labor atory studies. Hemoglobin is stable at 10.0. Patient does have leukocytosis at 18.4, which is actually on the lower end of his normal white blood cell count. Platelets are within normal limits. Calcium is very low at 5.4. Patient does have long history of hypocalcemia he was discharged with a calcium at 5.6 last month. Potassium is low at 2.9. Nasal bleeding was resolved with oxymetazoline and nose clamp. Potassium and calcium replenished. I did review recent oncology note there was concern for MDS patient was supposed to follow up with oncology outpatient which he has not done yet. I spoke with Vandana Yeager who states patient has appointment with Dr. Carranza on 09/25. She is comfortable with supplementing potassium and calcium today with follow-up in the office as patient is asymptomatic and is chronically hypocalcemic. This was discussed with patient and his sister in detail. They understand follow-up is very important and strict return parameters were discussed. Patient was observed in the emergency department for 2 hours he did not have any further episodes of epistaxis he will be discharged. Undiagnosed new problem with uncertain prognosis? @ -No Drug Therapy requiring intensive monitoring for toxicity (Heparin, Nitro, Insulin, Cardizem)? @ -No Were any procedures done? @ -No Diagnosis/symptom? @ -epistaxis Acute, or Chronic, or Acute on Chronic? @ -acute Uncomplicated (without systemic symptoms) or Complicated (systemic symptoms)? @ -default Side effects of treatment? @ -No Exacerbation, Progression, or Severe Exacerbation? @ -No Poses a threat to life or bodily function? How? (Chest pain, USA, SD, pneumonia, PE, COPD, DKA, ARF, appy, cholecystitis, CVA, Diverticulitis, Homicidal, Suicidal, threat to staff... and all critical care pts) @ -Not currently Diagnosis/symptom? @ -hypocalcemia Acute, or Chronic, or Acute on Chronic? @ -acute on chronic Uncomplicated (without systemic symptoms) or Complicated (systemic symptoms)? @ -default Side effects of treatment? @ -none Exacerbation, Progression, or Severe Exacerbation @ -no Poses a threat to life or bodily function? @ -no Dr. Madera is my attending - Lab Data Result diagrams: 09/17/22 11:23 09/17/22 11:23 Lab Results 09/17/22 09/17/22 09/17/22 Range/Units 11:23 11: 11:23 WBC 18.4 H (3.8-10.6) k/uL RBC 4.20 L (4.30-5.90) m/uL Hgb 10.0 L (13.0-17.5) gm/dL Hct 30.9 L (39.0-53.0) % MCV 73.6 L (80.0-100.0) fL MCH 23.8 L (25.0-35.0) pg MCHC 32.4 (31.0-37.0) g/dL RDW 21.2 H (11.5-15.5) % Plt Count 195 (150-450) k/uL MPV 9.9 Neutrophils % (Manual) 84 % Lymphocytes % (Manual) 4 % Monocytes % (Manual) 13 % Neutrophils # (Manual) 15.46 H (1.3-7.7) k/uL Lymphocytes # (Manual) 0.74 L (1.0-4.8) k/uL Monocytes # (Manual) 2.39 H (0-1.0) k/uL Nucleated RBCs 0 (0-0) /100 WBC Manual Slide Review Performed Hypochromasia Slight Poikilocytosis (manual Present Anisocytosis Moderate Microcytosis Marked PT 12.5 H (9.0-12.0) sec INR 1.2 H (<1.2) APTT 26.7 (22.0-30.0) sec Sodium 138 (137-145) mmol/L Potassium 2.9 L (3.5-5.1) mmol/L Chloride 91 L (98-107) mmol/L Carbon Dioxide 37 H (22-30) mmol/L Anion Gap 10 mmol/L BUN 48 H (9-20) mg/dL Creatinine 1.23 (0.66-1.25) mg/dL Est GFR (CKD-EPI)AfAm 65 (>60 ml/min/1.73 sqM) Est GFR (CKD-EPI)NonAf 56 (>60 ml/min/1.73 sqM) Glucose 93 (74-99) mg/dL Calcium 5.4 L* (8.4-10.2) mg/dL Total Bilirubin 3.8 H (0.2-1.3) mg/dL AST 73 H (17-59) U/L ALT 55 H (4-49) U/L Alkaline Phosphatase 218 H (38-126) U/L Total Protein 6.0 L (6.3-8.2) g/dL Albumin 3.3 L (3.5-5.0) g/dL Disposition Clinical Impression: Nosebleed, Hypocalcemia Disposition: HOME SELF-CARE Condition: Good Instructions (If sedation given, give patient instructions): Nosebleed (ED), Hypocalcemia (ED) Additional Instructions: For the next 2 days to not blow your nose or lift anything heavy like children/babies, groceries, or perform physical activities or nut sheller such as vacuuming. To prevent further nosebleeds, keep the nose moist. There are different methods including over the counter nasal saline, coating the nose with vaseline twice a day, and using a humdifier at home. If bleed returns apply direct pressure to nasal bridge for a full 15 minutes. Follow up with primary care provider in 1-2 days as [address] as Dr. Prieto/Dr. Carranza. Return to the emergency department if you experience new, worsening, or concerning symptoms. Is patient prescribed a controlled substance at d/c from ED?: No Referrals: Nat Oglesby MD [Primary Care Provider] - 1-2 days
[2022-09-17 15:26] VITALS: BP 116/86; RESP 20
[2022-09-17 15:56] VITALS: PULSE 79
== END 2022-09-17 16:19 | disposition home or self-care (01) ==
LOC: EC 10:26
DX: R04.0 Epistaxis (principal); E83.51 Hypocalcemia; I10 Essential (primary) hypertension; I25.10 Atherosclerotic heart disease of native coronary artery without angina pectoris; I25.2 Old myocardial infarction; I48.91 Unspecified atrial fibrillation; Z79.01 Long term (current) use of anticoagulants; Z79.84 Long term (current) use of oral hypoglycemic drugs; Z79.899 Other long term (current) drug therapy
CPT/HCPCS: 36415; 80053; 85025; 85610; 85730; 99283; 96365; J0611

== ENCOUNTER 2022-09-21 13:45 | Observation (INO) | payer MEDICARE, OTHER ==
--- NOTE | 2022-09-21 14:20 | ED ---
General Adult HPI - General Chief complaint: Fall Stated complaint: Fall Time Seen by Provider: 09/21/22 13:56 Source: patient, EMS Mode of arrival: EMS - History of Present Illness Initial comments: Dictation was produced using gis.to dictation software. please excuse any g rammatical, word or spelling errors. Chief Complaint: 77-year-old male presents emergency department after fall History of Present Illness: An 77-year-old male presents to emergency department after fall. History of present illness the mid by patient hard of hearing. Patient states he does not remember falling. He states he did not feel any symptoms of falling. No associated report from EMS states the patient was reaching for something when he lost his balance and fell. Patient did remember hitting his forehead on the ground. Patient has no complaints at the bedside. No shortness of breath or chest pain. No palpitations. Patient was in our emergency department 4 days ago for nosebleed. Patient lives in assisted living Facility. The ROS documented in this emergency department record has been reviewed and confirmed by me. Those systems with pertinent positive or negative responses have been documented in the HPI. All other systems are other negative and/or no ncontributory. - Related Data Home Medications Medication Instructions Recorded Confirmed Atorvastatin [Lipitor] 80 mg PO HS 06/11/20 08/21/22 Magnesium Oxide 400 mg PO DAILY PRN 12/23/20 08/21/22 Empagliflozin [Jardiance] 10 mg PO DAILY 08/21/22 08/21/22 Ipratropium-Albuterol Nebulize 3 ml INHALATION RT-QID PRN 08/21/22 08/21/22 [Duoneb 0.5 mg-3 mg/3 ml Soln] Levothyroxine Sodium [Synthroid] 88 mcg PO DAILY 08/21/22 08/21/22 traZODone HCL [Desyrel] 100 mg PO HS 08/21/22 08/21/22 Previous Rx's Medication Instructions Recorded Apixaban [Eliquis] 5 mg PO BID #60 tab 10/22/21 Bumetanide [BUMEX] 1 mg PO DAILY #0 08/26/22 Losartan [Cozaar] 25 mg PO HS #30 tab 08/26/22 Metoprolol Tartrate [Lopressor] 25 mg PO BID #60 tab 08/26/22 cefUROXime axetiL [Ceftin] 500 mg PO BID 7 Days #14 tab 08/26/22 Allergies Allergy/AdvReac Type Severity Reaction Status Date / Time No Known Allergies Allergy Verified 09/21/22 13:55 Review of Systems ROS Statement: Those systems with pertinent positive or pertinent negative responses have been documented in the HPI. ROS Other: All systems not noted in ROS Statement are negative. Past Medical History Past Medical History: Coronary Artery Disease (CAD), Hypertension, Thyroid Disorder Additional Past Medical History / Comment(s): vertigo Last Myocardial Infarction Date:: 2013 History of Any Multi-Drug Resistant Organisms: None Reported Past Surgical History: Hernia Repair, Pacemaker Additional Past Surgical History / Comment(s): Left lung removed Past Anesthesia/Blood Transfusion Reactions: No Reported Reaction Type of Cardiac Device: Unknown Device Placement Date:: June, Past Psychological History: No Psychological Hx Reported Smoking Status: Never smoker Past Alcohol Use History: None Reported Past Drug Use History: None Reported - Past Family History Father Family Medical History: Memory Impairment Additional Family Medical History / Comment(s): Father at age 71 from a myocardial infarction. Mother Family Medical History: No Reported History Additional Family Medical History / Comment(s): Mother at age 92 from old age. Brother(s) Additional Family Medical History / Comment(s): Patient has 3 brothers alive with no major medical problems. One brother is dying from stomach cancer. Sister(s) Additional Family Medical History / Comment(s): Patient has one sister and she is alive. History of hypertension and hyperlipidemia. General Exam - General Exam Comments Initial Comments: PHYSICAL EXAM: General Impression: Alert and oriented x3, not in acute distress HEENT: Hematoma to the right forehead, extra-ocular movements intact, pupils equal and reactive to light bilaterally, mucous membranes moist. Cardiovascular: Heart regular rate and rhythm Chest: Able to complete full sentences, no retractions, no tachypnea Abdomen: abdomen soft, non-tender, non-distended, no organomegaly Musculoskeletal: Pulses present and equal in all extremities, no peripheral edema Motor: no focal deficits noted Neurological: CN II-XII grossly intact, no focal motor or sensory deficits noted Skin: Intact with no visualized rashes Psych: Normal affect and mood Course Vital Signs 09/21/22 13:51 Temperature 98.1 F Pulse Rate 83 Respiratory 20 Rate Blood Pressure 118/66 O2 Sat by Pulse 98 Oximetry EKG Findings - EKG Comments: EKG Findings:: My EKG interpretation: Ventricular rate ventricular paced rhythm,. Interval 76, QRS 114, QTc 447. No TX prolongation, no QTC prolongation, no ST or T-wave changes noted. Overall, this EKG is unremarkable Procedures - Sepsis Sepsis Focused Exam #1 Time Sepsis Criteria Met: 16:10 Sepsis Focused Exam Date: 09/21/22 Sepsis Focused Exam Time: 16:11 Sepsis Focused Exam Complete: Yes Vital Signs & RN Notes Reviewed: Yes Capillary Refill: < 2 Seconds: Fingers, Toes Peripheral Pulses: Normal: Radial (R), Radial (L), Posterior Tibialis (R), Posterior Tibialis (L), Dorsalis Pedis (R), Dorsalis Pedis (L) Skin Color: Normal for Patient Respiratory Exam: normal lung sounds Cardiovascular Exam: regular rate, normal rhythm Medical Decision Making - Medical Decision Making Was pt. sent in by a medical professional or institution (, PA, CHEMICAL PRODUCTION ENGINEER, urgent care, hospital, or group home...) When possible be specific @ -Assisted care facility Did you speak to anyone other than the patient for history (EMS, parent, family, police, friend...)? What history was obtained from this source @ -No Did you review nursing and triage notes (agree or disagree)? Why? @ -I reviewed and agree with nursing and triage notes Were old charts reviewed (outside hosp., previous admission, EMS record, old EKG, old radiological studies, urgent care reports/EKG's, group home records)? Report findings @ -No old charts were reviewed Differential Diagnosis (chest pain, altered mental status, abdominal pain women, abdominal pain men, vaginal bleeding, musculoskeletal, weakness, fever, dyspnea, syncope, headache, dizziness, GI bleed, back pain, seizure, CVA, palpatations, mental health)? @ -Differential Syncope: Valvular disease, hypertrophic cardiomyopathy, pulmonary embolism, tamponade, tachycardia, bradycardia, DC, hypovolemia, hemorrhage, dissection, anemia, intracranial hemorrhage, seizure, hypoglycemia, carbon monoxide poisoning, this is not meant to be an all-inclusive list. EKG interpreted by me (3pts min.). @ -See above X-rays interpreted by me (1pt min.). @ -Chest x-ray shows bilateral infiltrates, pelvis x-ray unremarkable. CT interpreted by me (1pt min.). @ -CAT scan of the head and C-spine shows no acute processes U/S interpreted by me (1pt. min.). @ -None done What testing was considered but not performed or refused? (CT, X-rays, U/S, labs)? Why? @ -None What meds were considered but not given or refused? Why? @ -None Did you discuss the management of the patient with other professionals (professionals i.e. , PA, CHEMICAL PRODUCTION ENGINEER, lab, RT, psych nurse, clinical social worker, orthotist or prosthetist, teacher, transportation security officer, ed case manager)? Give summary @ -Discussed with Dr. Oglesby for admission Was smoking cessation discussed for >3mins.? @ -No Was critical care preformed (if so, how long)? @ -No Were there social determinants of health that impacted care today? How? (Homelessness, low income, unemployed, alcoholism, drug addiction, transportation, low edu. Level, literacy, decrease access to med. care, half-way, rehab)? @ -No Was there de-escalation of care discussed even if they declined (Discuss DNR or withdrawal of care, Hospice)? DNR status @ -No What co-morbidities impacted this encounter? (DM, HTN, Smoking, COPD, CAD, Cancer, CVA, ARF, Chemo, Hep., AIDS, mental health diagnosis, sleep apnea, morbid obesity)? @ -None Was patient admitted / discharged? Hospital course, mention meds given and route, prescriptions, significant lab abnormalities, going to OR and other pertinent info. @ -77-year-old male presents to emergency department after syncopal episode. Patient found have atypical pneumonia. Patient also had some events noted on his pacemaker interrogation. Patient be admitted. Given antibiotics. Cardiology consulted Undiagnosed new problem with uncertain prognosis? @ -No Drug Therapy requiring intensive monitoring for toxicity (Heparin, Nitro, Insulin, Cardizem)? @ -No Were any procedures done? @ -No Diagnosis/symptom? Acute, or Chronic, or Acute on Chronic? Uncomplicated (without systemic symptoms) or Complicated (systemic symptoms)? @ -1. Acute syncope, 2. Bacterial pneumonia Side effects of treatment? @ -No Exacerbation, Progression, or Severe Exacerbation? @ -No Poses a threat to life or bodily function? How? (Chest pain, USA, DC, pneumonia, PE, COPD, DKA, ARF, appy, cholecystitis, CVA, Diverticulitis, Homicidal, Suicidal, threat to staff... and all critical care pts) @ -yes - Lab Data Result diagrams: 09/21/22 14:31 09/21/22 14:31 Lab Results 09/21/22 09/21/22 09/21/22 Range/Units 14:31 14:31 14:31 WBC 21.0 H (3.8-10.6) k/uL RBC 3.78 L (4.30-5.90) m/uL Hgb 9.1 L (13.0-17.5) gm/dL Hct 28.5 L (39.0-53.0) % MCV 75.4 L (80.0-100.0) fL MCH 24.0 L (25.0-35.0) pg MCHC 31.8 (31.0-37.0) g/dL RDW 21.8 H (11.5-15.5) % Plt Count 220 (150-450) k/uL MPV 9.7 Neutrophils % 81 % Lymphocytes % 6 % Monocytes % 12 % Eosinophils % 0 % Basophils % 0 % Neutrophils # 17.0 H (1.3-7.7) k/uL Lymphocytes # 1.2 (1.0-4.8) k/uL Monocytes # 2.5 H (0-1.0) k/uL Eosinophils # 0.0 (0-0.7) k/uL Basophils # 0.0 (0-0.2) k/uL Hypochromasia Slight Anisocytosis Moderate Microcytosis Marked PT 12.4 H (9.0-12.0) sec INR 1.2 H (<1.2) APTT 25.2 (22.0-30.0) sec Sodium 139 (137-145) mmol/L Potassium 3.6 (3.5-5.1) mmol/L Chloride 93 L (98-107) mmol/L Carbon Dioxide 36 H (22-30) mmol/L Anion Gap 10 mmol/L BUN 55 H (9-20) mg/dL Creatinine 1.82 H (0.66-1.25) mg/dL Est GFR (CKD-EPI)AfAm 40 (>60 ml/min/1.73 sqM) Est GFR (CKD-EPI)NonAf 35 (>60 ml/min/1.73 sqM) Glucose 103 H (74-99) mg/dL Calcium 5.1 L* (8.4-10.2) mg/dL Troponin I (0.000-0.034) ng/mL 09/21/22 Range/Units 14:31 WBC (3.8-10.6) k/uL RBC (4.30-5.90) m/uL Hgb (13.0-17.5) gm/dL Hct (39.0-53.0) % MCV (80.0-100.0) fL MCH (25.0-35.0) pg MCHC (31.0-37.0) g/dL RDW (11.5-15.5) % Plt Count (150-450) k/uL MPV Neutrophils % % Lymphocytes % % Monocytes % % Eosinophils % % Basophils % % Neutrophils # (1.3-7.7) k/uL Lymphocytes # (1.0-4.8) k/uL Monocytes # (0-1.0) k/uL Eosinophils # (0-0.7) k/uL Basophils # (0-0.2) k/uL Hypochromasia Anisocytosis Microcytosis PT (9.0-12.0) sec INR (<1.2) APTT (22.0-30.0) sec Sodium (137-145) mmol/L Potassium (3.5-5.1) mmol/L Chloride (98-107) mmol/L Carbon Dioxide (22-30) mmol/L Anion Gap mmol/L BUN (9-20) mg/dL Creatinine (0.66-1.25) mg/dL Est GFR (CKD-EPI)AfAm (>60 ml/min/1.73 sqM) Est GFR (CKD-EPI)NonAf (>60 ml/min/1.73 sqM) Glucose (74-99) mg/dL Calcium (8.4-10.2) mg/dL Troponin I 0.018 (0.000-0.034) ng/mL Disposition Clinical Impression: Fall, Syncope, Pneumonia Disposition: ADMITTED IP TO THIS HOSP Condition: Fair Referrals: Nat Oglesby MD [Primary Care Provider] - 1-2 days Decision Time: 16:11
[2022-09-21 14:53] LABS: Anisocytosis Moderate; Basophils % (A) 0 %; Eosinophils % (A) 0 %; HCT 28.5 % (39.0-53.0); HGB 9.1 gm/dL (13.0-17.5); Hypochromasia Slight; Lymphocytes # (A) 1.2 k/uL (1.0-4.8); Lymphocytes % (A) 6 %; MCHC 31.8 g/dL (31.0-37.0); MCV 75.4 fL (80.0-100.0); Mean Platelet Volume 9.7; Microcytosis Marked; Monocytes # (A) 2.5 k/uL (0-1.0); Monocytes % (A) 12 %; Neutrophils % (A) 81 %; Platelet Count 220 k/uL (150-450); RBC 3.78 m/uL (4.30-5.90); RDW 21.8 % (11.5-15.5)
[2022-09-21 15:01] LABS: INR 1.2 (<1.2); Partial Thromboplastin Time 25.2 sec (22.0-30.0); Prothrombin Time 12.4 sec (9.0-12.0)
[2022-09-21 15:16] LABS: Potassium 3.6 mmol/L (3.5-5.1)
[2022-09-21 15:18] LABS: Calcium 5.1 mg/dL (8.4-10.2)
--- NOTE | 2022-09-21 15:25 | CT ---
EXAMINATION TYPE: CT brain cspine wo con CT DLP: 1392 mGycm, Automated exposure control for dose reduction was used. DATE OF EXAM: 09/21/2022 3:04 PM COMPARISON: CT brain C-spine 10/19/2021. CLINICAL INDICATION:Male, 77 years old with history of fall; Fall. TECHNIQUE: Brain: Multiple axial CT images of the brain were obtained without IV contrast. Cspine: Axial CT images from the skull base to the inferior aspect of T2 we obtained without intraven ous contrast. Coronal and sagittal reformatted images were also reviewed. FINDINGS: Brain: Extra-axial spaces: No abnormal extra-axial fluid collections. Ventricular system: Within normal limits Cerebral parenchyma: Cerebral atrophy. No acute intraparenchymal hemorrhage or mass effect. The black -white junction is well differentiated. Scattered hypoattenuating areas are seen within the white mat ter. Cerebellum: Unremarkable. Mass effect: No evidence of midline shift. Intracranial vasculature: Atherosclerotic calcifications of the intracranial vessels. Soft tissues: Normal. Calvarium/osseous structures: No depressed skull fracture. Paranasal sinuses and mastoid air cells: Postsurgical changes from left mastoidectomy. Visualized orbits: Left aphakia Cervical spine: Fracture: None. Osseous structures: Multilevel degenerative disc disease changes with endplate spurring and disc oste ophyte complex's. Multilevel facet arthropathy. Vertebral alignment: Similar grade 1 anterolisthesis of C2 on C3, likely degenerative. Scoliotic curv ature redemonstrated. Spinal canal/Neural Foramina: Disc osteophyte complexes at C3-C4 and C6-C7 with at least mild spinal canal stenosis. Facet joint uncovertebral joint arthropathy scattered throughout the cervical spine w ith varying degrees of neural foraminal stenosis. Neck soft tissues: Prevertebral soft tissues are within normal limits. Stable right parotid gland sof t tissue lesion measuring up to 2.6 cm. Other: The airway is patent. Scattered patchy groundglass opacities within the right lung. Surgical c hanges of the left upper lobe with volume loss and mediastinal shift to the left. 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 Partial visualization of cardiac pacemaking leads. IMPRESSION: 1. No acute intracranial process. 2. Nonspecific white matter changes, likely secondary to chronic small vessel ischemic disease. 3. No evidence of cervical spine fracture. 4. Mild to moderate multilevel degenerative disc disease. 5. Scattered groundglass opacities within the visualized right upper lung concerning for atypical vi ral pneumonia. 6. 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
--- NOTE | 2022-09-21 15:49 | XR ---
EXAMINATION TYPE: XR pelvis AP view DATE OF EXAM: 09/21/2022 CLINICAL HISTORY: pain TECHNIQUE: Single view the pelvis is submitted. FINDINGS: No evidence for fracture, dislocation or bony lesion. Joint spaces are well-preserved. S I joints appear symmetric. IMPRESSION: 1. No acute fracture or dislocation seen. ICD 10 NO FRACTURE, INITIAL EVALUATION
--- NOTE | 2022-09-21 15:49 | XR ---
EXAMINATION TYPE: XR chest 2V DATE OF EXAM: 09/21/2022 COMPARISON: 06/03/2022 HISTORY: Shortness of breath TECHNIQUE: Frontal and lateral views of the chest are obtained. FINDINGS: Scattered senescent parenchymal changes noted. Hyperinflation compatible with COPD. Again noted is complete opacification left hemithorax. The right thorax is well aerated. Pacer device is in place. Heart size is stable. Mediastinal structures are stable and grossly unremarkable. No evidence for hilar prominence. Degenerative changes dorsal spine. IMPRESSION: 1. No evidence for acute pulmonary disease.
[2022-09-21] MEDS ORDERED: cefTRIAXone IN SWFI 1,000 MG/10 ML SYRINGE IVP STA (15:54)
[2022-09-21] MEDS ORDERED: AZITHROMYCIN 500 MG in SODIUM CHLORIDE 0.9% 250 ML IVPB STA (15:54)
[2022-09-21] MEDS ORDERED: PNEUMONIA PROTOCOL UTILIZED 1 EACH MISC PO PRN (16:04)
--- NOTE | 2022-09-22 08:26 | XR ---
EXAMINATION TYPE: XR chest 1V DATE OF EXAM: 09/22/2022 CLINICAL HISTORY: Difficulty breathing and pneumonia progress study. TECHNIQUE: Single AP portable upright view of the chest is obtained. COMPARISON: Chest x-ray from one day earlier and older studies FINDINGS: Surgical clips left suprahilar region with completely opacified left hemithorax and left-s ided volume loss with mediastinal shift and elevated left hemidiaphragm. Presumed mild cardiomegaly w ith multi lead pacemaker. Right lung remains clear. Multilevel spurring in the thoracic spine is rede monstrated. Cholecystectomy clips are noted. IMPRESSION: No significant change from one day earlier and more recent older studies. Treatment basilio es left lung with left-sided volume loss. No new right-sided pulmonary infiltrate.
[2022-09-22] MEDS: AZITHROMYCIN 500 MG TAB PO SCH (08:50)
[2022-09-22] MEDS ORDERED: IPRATROPIUM-ALBUTEROL 3 ML NEB INHALATION PRN (08:56)
[2022-09-22] MEDS ORDERED: BUMETANIDE 1 MG TAB PO SCH (09:00)
[2022-09-22] MEDS ORDERED: metOLazone 2.5 MG TAB PO SCH (09:00)
[2022-09-22] MEDS: MAGNESIUM OXIDE 400 MG TAB PO PRN (11:16)
[2022-09-22] MEDS: DAPAGLIFLOZIN PROPANEDIOL 5 MG TABLET PO SCH (11:17)
[2022-09-22] MEDS: APIXABAN 5 MG TAB PO SCH ×2 (11:17→20:25)
[2022-09-22] MEDS: LEVOTHYROXINE 88 MCG TAB PO SCH (11:17)
[2022-09-22] MEDS: METOPROLOL SUCCINATE (ER) 100 MG TAB.ER.24H PO SCH (11:20)
--- NOTE | 2022-09-22 13:26 | P.CRDCN ---
History of Present Illness Consult date: 09/22/22 Consult reason: sycope History of present illness: HISTORY OF PRESENTING ILLNESS This is a 77-year-old male patient of Dr. 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 We have been asked to evaluate the patient for syncope. Patient had a recent hospitalization in August status post incision and drainage of the left leg hematoma and also hypovolemic shock due to acute blood loss. Patient was seen at that time by cardiology for chest pain likely related to the hypovolemic shock and acute blood loss. He was transfused 2 units of packed RBCs. Patient presented to the emergency room following a fall unclear if there was loss of consciousness. Patient had no lig htheadedness or dizziness prior to the fall. No palpitations, no chest pain. EMS reported the patient was reaching for something and lost his balance and fell. He did hit his forehead on the ground but no other injuries. Patient is seen today in the emergency center. He has been resumed on his home cardiac medications. His vital signs have been stable. EKG ventricularly paced rhythm Chest x-ray: No acute pulmonary disease. Repeat Chest x-ray reveals no significant change. Left lung with left-sided volume loss. No new right-sided pulmonary infiltrate. CAT scan of the brain and cervical spine revealed no acute intracranial process. Nonspecific white matter changes likely chronic small vessel ischemic disease. No evidence of cervical spine fracture. Mild to moderate multilevel deg enerative disc disease. Scattered groundglass opacities within the visualized right upper lung concerning for atypical viral pneumonia. 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 INR 1.2. Sodium 139, potassium 3.6, BUN 55 creatinine 1.8. Calcium 5.1. Troponin 0.018 Home cardiac medications: Eliquis 5 mg twice daily, atorvastatin 80 mg at be dtime, Bumex 2 mg daily, losartan 25 mg at bedtime, metolazone 2.5 mg daily, Toprol-XL 100 mg daily, patient also on Jardiance Echocardiogram 08/24/2022 revealed normal ventricular systolic function, mild mitral regurgitation, limited study. He feels a need for care here REVIEW OF SYSTEMS At the time of my exam: CONSTITUTIONAL: Denies fever or chills. CARDIOVASCULAR: Denies chest pain, denies shortness of breath, no orthopnea, PND or palpitations. RESPIRATORY: Denies cough. GASTROINTESTINAL: Denies abdominal pain, diarrhea, constipation, nausea or vomiting. MUSCULOSKELETAL: Denies myalgias. NEUROLOGIC: Denies numbness, tingling, headache or weakness. ENDOCRINE: Denies fatigue, weight change, polydipsia or polyurina. GENITOURINARY: Denies burning, hematuria or urgency with micturation. HEMATOLOGIC: Denies history of anemia or bleeding. PHYSICAL EXAMINATION Vitals reviewed CONSTITUTIONAL: No apparent distress. HEENT: Head is normocephalic. Pupils are equal, round. Sclerae anicteric. Mucous membranes of the mouth are moist. No JVD. No carotid bruit. CHEST EXAMINATION: Lungs are clear to auscultation. No chest wall tenderness is noted on palpation or with deep breathing. HEART EXAMINATION: Regular rate and rhythm. S1, S2 heard. Systolic ejection murmur at apex, no gallops or rub. ABDOMEN: Soft, nontender. Positive bowel sounds. EXTREMITIES: 2+ peripheral pulses, no lower extremity edema and no calf tenderness. SKIN: Warm, dry NEUROLOGIC EXAMINATION: Patient is awake, alert and oriented x3. ASSESSMENT Presyncope Acute kidney injury Recent left leg hematoma status post evacuation. 08/22 History of tachy-arabella syndrome and syncope status post pacemaker implantation i n 07/2020 Paroxysmal atrial fibrillation on Eliquis currently ventricularly paced History of hypertension Dyslipidemia Former tobacco use Former alcohol use Non-small cell lung cancer in 2008 status post left pneumonectomy History of hypothyroidism PLAN Resume patient on his home cardiac medications Obtain orthostatic vital signs Continue cardiac monitoring Obtain 2-D echocardiogram Further recommendations as patient progresses Thank you for this consultation Nurse practitioner note has been reviewed, I agree with the documented findings and plan of care. Patient was seen and examined. Past Medical History Past Medical History: Coronary Artery Disease (CAD), Hypertension, Thyroid Disorder Additional Past Medical History / Comment(s): vertigo Last Myocardial Infarction Date:: 2013 History of Any Multi-Drug Resistant Organisms: None Reported Past Surgical History: Hernia Repair, Pacemaker Additional Past Surgical History / Comment(s): Left lung removed Past Anesthesia/Blood Transfusion Reactions: No Reported Reaction Type of Cardiac Device: Unknown Device Placement Date:: June, Past Psychological History: No Psychological Hx Reported Smoking Status: Never smoker Past Alcohol Use History: None Reported Past Drug Use History: None Reported - Past Family History Father Family Medical History: Memory Impairment Additional Family Medical History / Comment(s): Father at age 71 from a myocardial infarction. Mother Family Medical History: No Reported History Additional Family Medical History / Comment(s): Mother at age 92 from old age. Brother(s) Additional Family Medical History / Comment(s): Patient has 3 brothers alive with no major medical problems. One brother is dying from stomach cancer. Sister(s) Additional Family Medical History / Comment(s): Patient has one sister and she is alive. History of hypertension and hyperlipidemia. Medications and Allergies Home Medications Medication Instructions Recorded Confirmed Type Atorvastatin [Lipitor] 80 mg PO HS 06/11/20 09/21/22 History Magnesium Oxide 400 mg PO DAILY PRN 12/23/20 09/21/22 History Apixaban [Eliquis] 5 mg PO BID #60 tab 10/22/21 09/21/22 Rx Empagliflozin [Jardiance] 10 mg PO DAILY 08/21/22 09/21/22 History Ipratropium-Albuterol Nebulize 3 ml INHALATION RT-QID PRN 08/21/22 09/21/22 Hi story [Duoneb 0.5 mg-3 mg/3 ml Soln] Levothyroxine Sodium [Synthroid] 88 mcg PO DAILY 08/21/22 09/21/22 History traZODone HCL [Desyrel] 100 mg PO HS 08/21/22 09/21/22 History Losartan [Cozaar] 25 mg PO HS #30 tab 08/26/22 09/21/22 Rx Bumetanide [BUMEX] 2 mg PO DAILY 09/21/22 09/21/22 History Metoprolol Succinate (ER) [Toprol 100 mg PO DAILY 09/21/22 09/21/22 History Xl] metOLazone [Zaroxolyn] 2.5 mg PO DAILY 09/21/22 09/21/22 History Allergies Allergy/AdvReac Type Severity Reaction Status Date / Time No Known Allergies Allergy Verified 09/21/22 16:30 Physical Exam Vitals: Vital Signs Temp Pulse Resp BP Pulse Ox 09/22/22 02:00 76 17 128/88 97 09/21/22 22:00 60 18 113/60 99 09/21/22 20:33 91 20 86/72 99 09/21/22 19:00 76 20 97/54 96 09/21/22 16:20 75 18 110/45 97 09/21/22 13:51 98.1 F 83 20 118/66 98 Results 09/21/22 14:31 09/21/22 14:31 Cardiac Enzymes 09/21/22 Range/Units 14:31 Troponin I 0.018 (0.000-0.034) ng/mL Coagulation 09/21/22 Range/Units 14:31 PT 12.4 H (9.0-12.0) sec APTT 25.2 (22.0-30.0) sec CBC 09/21/22 Range/Units 14:31 WBC 21.0 H (3.8-10.6) k/uL RBC 3.78 L (4.30-5.90) m/uL Hgb 9.1 L (13.0-17.5) gm/dL Hct 28.5 L (39.0-53.0) % Plt Count 220 (150-450) k/uL Comprehensive Metabolic Panel 09/21/22 Range/Units 14:31 Sodium 139 (137-145) mmol/L Potassium 3.6 (3.5-5.1) mmol/L Chloride 93 L (98-107) mmol/L Carbon Dioxide 36 H (22-30) mmol/L BUN 55 H (9-20) mg/dL Creatinine 1.82 H (0.66-1.25) mg/dL Glucose 103 H (74-99) mg/dL Calcium 5.1 L* (8.4-10.2) mg/dL Current Medications Generic Name Dose Route Start Last Admin Trade Name Freq PRN Reason Stop Dose Admin Albuterol/Ipratropium 3 ml 09/22/22 08:56 Ipratropium-Albuterol 3 Ml Neb INHALATION RT-QID PRN Shortness Of Breath Apixaban 5 mg 09/22/22 09:00 09/22/22 11:17 Apixaban 5 Mg Tab PO 5 mg BID GAGANDEEP Administration Protocol Atorvastatin Calcium 80 mg 09/22/22 21:00 Atorvastatin 80 Mg Tab PO HS GAGANDEEP Azithromycin 500 mg 09/22/22 09:00 09/22/22 08:50 Azithromycin 500 Mg Tab PO 09/23/22 09:01 500 mg DAILY GAGANDEEP Administration Protocol Bumetanide 2 mg 09/22/22 09:00 09/22/22 11:16 Bumetanide 1 Mg Tab PO 2 mg DAILY GAGANDEEP Administration Dapagliflozin 5 mg 09/22/22 09:00 09/22/22 11:17 Dapagliflozin Propanediol 5 Mg Tablet PO 5 mg DAILY GAGANDEEP Administration Ceftriaxone Sodium 2 gm/ 50 mls @ 100 mls/hr 09/22/22 09:00 09/22/22 08:51 Sodium Chloride IVPB 09/25/22 09:29 100 mls/hr Q24HR GAGANDEEP Administration Protocol Levothyroxine Sodium 88 mcg 09/22/22 09:00 09/22/22 11:17 Levothyroxine 88 Mcg Tab PO 88 mcg 0630 GAGANDEEP Administration Losartan Potassium 25 mg 09/22/22 21:00 Losartan 25 Mg Tab PO HS GAGANDEEP Magnesium Oxide 400 mg 09/22/22 08:56 09/22/22 11:16 Magnesium Oxide 400 Mg Tab PO 400 mg DAILY PRN Administration Muscle Spasm Metolazone 2.5 mg 09/22/22 09:00 09/22/22 11:17 Metolazone 2.5 Mg Tab PO 2.5 mg DAILY GAGANDEEP Administration Metoprolol Succinate 100 mg 09/22/22 09:00 09/22/22 11:20 Metoprolol Succinate (Er) 100 Mg Tab.Er.24h PO 100 mg DAILY GAGANDEEP Administration Miscellaneous Information 1 each 09/21/22 16:04 Pneumonia Protocol Utilized 1 Each Misc PO ONCE PRN Per Protocol Trazodone HCl 100 mg 09/22/22 21:00 Trazodone Hcl 100 Mg Tab PO HS GAGANDEEP 09/21/22 14:31 09/21/22 14:31
--- NOTE | 2022-09-22 13:34 | P.CNPUL ---
History of Present Illness Consult date: 09/22/22 Reason for consult: abnormal CXR/CT History of present illness: A pleasant 77-year-old male patient came into the emergency department after he fell. He has history of recurrent falls. He is also hard of hearing. The patient has no good recollection of the events that led him to fall. He did hit his forehead on the ground. Based on that, the patient was brought into the emergency. The chest x-ray shows complete opacification of the left lung related to previous pneumonectomy. 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 No coffee no sputum production. No worsening shortness of breath. Is currently on 2 L of oxygen by nasal cannula. Is hemodynamically stable. He has a white cell count of 21 his white cell count has been chronically elevated. His hemoglobin is at 9.[address] atelet count of 220. Normal coagulation profile. Creatinine is 1.8 with a BUN of 55 and a sodium level is at 139. Troponins are 0.018. Legionella urine antigen was negative. The patient has had a CAT scan of the brain that showed no acute intracranial process. No evidence of any cervical fracture. There is mild to moderate multilevel degenerative disc disease. Limited scattered groundglass changes in the right upper lobe. Review of Systems CONSTITUTIONAL: Negative. He has impaired hearing CARDIOVASCULAR: Negative.. RESPIRATORY: Denies any shortness of breath cough or wheezing. Previous history of pneumonectomy on the left. GASTROINTESTINAL: Denies nausea vomiting or melena or hematemesis. Denies any abdominal pain or diarrhea. MUSCULOSKELETAL: History of recurrent falls. NEUROLOGIC: Negative.. ENDOCRINE: Negative.. GENITOURINARY: Negative.. HEMATOLOGIC: As noted in HPI, peptic patient has acute blood loss anemia and history of intermittent episodes of leukemoid reaction/leukocytosis. Psychiatric: Negative. Skin: Negative. Past Medical History Past Medical History: Coronary Artery Disease (CAD), Hypertension, Thyroid Disorder Additional Past Medical History / Comment(s): vertigo Last Myocardial Infarction Date:: 2013 History of Any Multi-Drug Resistant Organisms: None Reported Past Surgical History: Hernia Repair, Pacemaker Additional Past Surgical History / Comment(s): Left lung removed Past Anesthesia/Blood Transfusion Reactions: No Reported Reaction Type of Cardiac Device: Unknown Device Placement Date:: June, Past Psychological History: No Psychological Hx Reported Smoking Status: Never smoker Past Alcohol Use History: None Reported Past Drug Use History: None Reported - Past Family History Father Family Medical History: Memory Impairment Additional Family Medical History / Comment(s): Father at age 71 from a myocardial infarction. Mother Family Medical History: No Reported History Additional Family Medical History / Comment(s): Mother at age 92 from old age. Brother(s) Additional Family Medical History / Comment(s): Patient has 3 brothers alive with no major medical problems. One brother is dying from stomach cancer. Sister(s) Additional Family Medical History / Comment(s): Patient has one sister and she is alive. History of hypertension and hyperlipidemia. Medications and Allergies Home Medications Medication Instructions Recorded Confirmed Type Atorvastatin [Lipitor] 80 mg PO HS 06/11/20 09/21/22 History Magnesium Oxide 400 mg PO DAILY PRN 12/23/20 09/21/22 History Apixaban [Eliquis] 5 mg PO BID #60 tab 10/22/21 09/21/22 Rx Empagliflozin [Jardiance] 10 mg PO DAILY 08/21/22 09/21/22 History Ipratropium-Albuterol Nebulize 3 ml INHALATION RT-QID PRN 08/21/22 09/21/22 History [Duoneb 0.5 mg-3 mg/3 ml Soln] Levothyroxine Sodium [Synthroid] 88 mcg PO DAILY 08/21/22 09/21/22 History traZODone HCL [Desyrel] 100 mg PO HS 08/21/22 09/21/22 History Losartan [Cozaar] 25 mg PO HS #30 tab 08/26/22 09/21/22 Rx Bumetanide [BUMEX] 2 mg PO DAILY 09/21/22 09/21/22 History Metoprolol Succinate (ER) [Toprol 100 mg PO DAILY 09/21/22 09/21/22 History Xl] metOLazone [Zaroxolyn] 2.5 mg PO DAILY 09/21/22 09/21/22 History Allergies Allergy/AdvReac Type Severity Reaction Status Date / Time No Known Allergies Allergy Verified 09/21/22 16:30 Physical Exam Vitals: Vital Signs Temp Pulse Resp BP Pulse Ox 09/22/22 02:00 76 17 128/88 97 09/21/22 22:00 60 18 113/60 99 09/21/22 20:33 91 20 86/72 99 09/21/22 19:00 76 20 97/54 96 09/21/22 16:20 75 18 110/45 97 09/21/22 13:51 98.1 F 83 20 118/66 98 Physical Exam: Revealed 77-year-old white male in no distress. The patient is currently on 2 L of Oxymizer nasal cannula Head: Atraumatic normocephalic. HEENT:[ PERRLA, EOMI, dry mucous membranes. Neck is supple.] [No neck masses.] [No thyromegaly.] [No JVD.] Chest: [Diminished breath sound on the left side, normal breath sounds on the right side. No rhonchi no wheezes. Cardiac Exam: Normal S1 and S2, 2/6 systolic murmur at the apex, no gallop, no rub Abdomen: [Soft, nontender, no megaly, no rebound, no guarding, normal bowel sounds.] Extremities: [No clubbing, no edema, no cyanosis. Surgical dressing noted in the left calf region, related to recent evacuation of hematoma. No evidence of swelling or hematoma recurrence. There is however significant swelling noted over the left hip area laterally.] Neurological Exam: Alert and oriented 3. [No focal neurologic deficit.] Psychiatric: Normal mood affect and normal mental status examination. Skin: No rashes. Results - Laboratory Findings CBC and BMP: 09/21/22 14:31 09/21/22 14:31 ABG WBC 21.0 k/uL (3.8-10.6) H 09/21/22 14:31 RBC 3.78 m/uL (4.30-5.90) L 09/21/22 14:31 Hgb 9.1 gm/dL (13.0-17.5) L 09/21/22 14:31 Hct 28.5 % (39.0-53.0) L 09/21/22 14:31 MCV 75.4 fL (80.0-100.0) L 09/21/22 14:31 MCH 24.0 pg (25.0-35.0) L 09/21/22 14:31 MCHC 31.8 g/dL (31.0-37.0) 09/21/22 14:31 RDW 21.8 % (11.5-15.5) H 09/21/22 14:31 Plt Count 220 k/uL (150-450) 09/21/22 14:31 MPV 9.7 09/21/22 14:31 Neutrophils % 81 % 09/21/22 14:31 Lymphocytes % 6 % 09/21/22 14:31 Monocytes % 12 % 09/21/22 14:31 Eosinophils % 0 % 09/21/22 14:31 Basophils % 0 % 09/21/22 14:31 Neutrophils # 17.0 k/uL (1.3-7.7) H 09/21/22 14:31 Lymphocytes # 1.2 k/uL (1.0-4.8) 09/21/22 14:31 Monocytes # 2.5 k/uL (0-1.0) H 09/21/22 14:31 Eosinophils # 0.0 k/uL (0-0.7) 09/21/22 14:31 Basophils # 0.0 k/uL (0-0.2) 09/21/22 14:31 Hypochromasia Slight 09/21/22 14:31 Anisocytosis Moderate 09/21/22 14:31 Microcytosis Marked 09/21/22 14:31 PT 12.4 sec (9.0-12.0) H 09/21/22 14:31 INR 1.2 (<1.2) H 09/21/22 14:31 APTT 25.2 sec (22.0-30.0) 09/21/22 14:31 Sodium 139 mmol/L (137-145) 09/21/22 14:31 Potassium 3.6 mmol/L (3.5-5.1) 09/21/22 14:31 Chloride 93 mmol/L (98-107) L 09/21/22 14:31 Carbon Dioxide 36 mmol/L (22-30) H 09/21/22 14:31 Anion Gap 10 mmol/L 09/21/22 14:31 BUN 55 mg/dL (9-20) H 09/21/22 14:31 Creatinine 1.82 mg/dL (0.66-1.25) H 09/21/22 14:31 Est GFR (CKD-EPI)AfAm 40 (>60 ml/min/1.73 sqM) 09/21/22 14:31 Est GFR (CKD-EPI)NonAf 35 (>60 ml/min/1.73 sqM) 09/21/22 14:31 Glucose 103 mg/dL (74-99) H 09/21/22 14:31 Calcium 5.1 mg/dL (8.4-10.2) L* 09/21/22 14:31 Troponin I 0.018 ng/mL (0.000-0.034) 09/21/22 14:31 Legionella Source Urine 09/21/22 17:30 Urine Legionella Ag Negative (Negative) 09/21/22 17:30 PT/INR, D-dimer PT 12.4 sec (9.0-12.0) H 09/21/22 14:31 INR 1.2 (<1.2) H 09/21/22 14:31 Abnormal lab findings: Abnormal Labs 09/21/22 09/21/22 09/21/22 14:31 14:31 14:31 WBC 21.0 H RBC 3.78 L Hgb 9.1 L Hct 28.5 L MCV 75.4 L MCH 24.0 L RDW 21.8 H Neutrophils # 17.0 H Monocytes # 2.5 H PT 12.4 H INR 1.2 H Chloride 93 L Carbon Dioxide 36 H BUN 55 H Creatinine 1.82 H Glucose 103 H Calcium 5.1 L* Assessment and Plan Plan: History of recurrent falls Questionable right sided pneumonia involving the right upper lobe as CAT scan of the neck has shown some limited groundglass changes in the right upper lobe area, consider atypical pneumonia Left pneumonectomy with complete investigation of the left lung and volume loss Acute kidney injury and the creatinine is up to 1.8 History of pacemaker implantation for tachybradycardia syndrome. History of hypertension History of hypothyroidism History of non-small cell lung cancer and previous left-sided pneumonectomy in 2008 Ex-smoker Previous history of a Left lower extremity hematoma being addressed by orthopedics, patient is status post evacuation of hematoma on 08/22/2022. Left hip trauma and intramuscular hemorrhage, history of Plan Continue Rocephin and Zithromax Oxygen at 2 L a minute nasal cannula IV fluids Monitor renal function Resume all medications I would suggest reconsidering the use of Eliquis as the patient has history of recurrent falls and will be at high risk of bleeding in the future.
--- NOTE | 2022-09-22 14:33 | P.HPIM ---
History of Present Illness H&P Date: 09/22/22 HISTORY OF PRESENT ILLNESS: This is a 77-year-old male patient of mine with past medical history of non-small cell lung cancer diagnosed in 2009 status post lobectomy, remote history of tobacco use, remote history of alcohol abuse, alcoholic peripheral neuropathy, hypertension, coronary artery disease, paroxysmal atrial fibrillation on eliquis, history of tachybradycardia syndrome status post pacemaker implantation. Patient had a recent hospitalization in August for left leg hematoma status post I&D with hypovolemic shock due to acute blood loss. Patient was transfused 2 units of packed RBCs. Patient was stabilized and discharged to [facility] for subacute rehab. Patient has essentially been discharged to his home. Patient had a fall unclear if there was loss of consciousness. Patient had no lightheadedness or dizziness prior to the fall. No palpitations, no chest pain. EMS reported the patient was reaching for something and lost his balance and fell. He did hit his forehead on the ground but no other injuries. Patient is seen today in the emergency center waiting for a bed on the [facility] floor. His vital signs were found to be stable. EKG ventricularly paced rhythm. Chest x-ray: No acute pulmonary disease. Repeat Chest x-ray reveals no significant change. Left lung with left-sided volume loss. No new right-sided pulmonary infiltrate. CAT scan of the brain and cervical spine revealed no acute intracranial process. Nonspecific white matter changes likely chronic small vessel ischemic disease. No evidence of cervical spine fracture. Mild to moderate multilevel degenerative disc disease. Scattered groundglass opacities within the visualized right upper lung concerning for atypical viral pneumonia. 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 Pelvic x-ray no acute findings. WBC 21, hemoglobin 9.1, platelet count 220. INR 1.2. Sodium 139, potassium 3.6, BUN 55 creatinine 1.8. Calcium 5.1. Troponin 0.018 REVIEW OF SYSTEMS: Constitutional: No documented fever, no chills, no night sweats. No weight change. No weakness, fatigue or lethargy. No daytime sleepiness. HEENT: No headache. No blurred vision or double vision, no loss of vision. very hard of Hearing, no ringing in the ears, no dizziness. No nasal drainage or congestion. No epistaxis. No sore throat. Lungs: No shortness of breath, no cough, no sputum production. no wheezing. Cardiovascular: No chest pain, positive for lower extremity edema. No palpitations. No paroxysmal nocturnal dyspnea. No orthopnea. No lightheadedness or dizziness. Reports syncopal episode versus mechanical fall. Abdominal: Reports no abdominal pain. No nausea, vomiting. No diarrhea. No constipation. No bloody or tarry stools reports loss of appetite. Genitourinary: No dysuria, increased frequency, urgency. No urinary retention. Musculoskeletal: positive for myalgias. positive for right muscle weakness, positive for gait dysfunction, positive for frequent falls, positive for back pain and neck pain, reports pelvic discomfort Integumentary: No wounds, no lesions. No rash or pruritus. Neurologic: No aphasia. No facial droop. No change in mentation. No head injury. No headache. No paralysis. No paresthesia. Psychiatric: positive for depression, positive for anxiety. No mood swings. Endocrine: No abnormal blood sugars. No weight change. PAST MEDICAL HISTORY: Hypertension Hyperlipidemia Supraventricular tachycardia Malignant neoplasm of the prostate Neoplasm of the left bronchus Paroxysmal atrial fibrillation on Coumadin Alcoholic peripheral neuropathy Sick sinus syndrome Hypothyroidism PAST SURGICAL HISTORY: Left and right groin hernia repair Lung left resection in 2008 Permanent pacemaker 07/28 I&D left leg hematoma SOCIAL HISTORY: Patient has history of smoking and quit 5-10 years ago. No current alcohol use, illicit drug use, marijuana use. Patient does have history of alcohol abuse in the past. FAMILY HISTORY: Father at age 71 from a myocardial infarction. Mother at age 92 from old age. Patient has 3 brothers and 2 brothers are living with no major medical problems, one brother from stomach cancer. Patient has one sister living with history of hypertension hyperlipidemia. PHYSICAL EXAMINATION: General: This is a 77-year-old male resting in bed in minimal distress HEENT: Head is atraumatic, normocephalic, pupils were equal round reactive to l ight and recommendation, extraocular muscle movement were intact, sclera nonicteric, conjunctivae were pale, mucous membranes of the mouth are somewhat dry. Neck: Supple, no JVP, normal carotid upstroke bilaterally, no lymphadenopathy. Chest: Decreased breath sounds at the bases, no wheezes, no chest wall tenderness, no intercostal retractions. Heart: First heart sound is normal, second heart sounds normal, systolic ejection murmur 2/6 located at the left sternal border. Abdomen: Soft, nontender, nondistended, positive bowel sounds. Extremities: There is no edema no calf tenderness DP +1 bilaterally Neurologic examination: Patient is awake alert and oriented 3, cranial nerves II-12 appear grossly intact, muscle power were 4 out of 5 in upper extremities and 2 out of 5 in bilateral lower extremities, deep tendon reflexes normal bilaterally. ASSESSMENT AND PLAN: 1. Syncopal episode versus mechanical fall. Cardiology consult appreciated. Orthostatic vital signs, telemetry monitoring, echocardiogram is ordered. 2. Acute kidney injury. Plan to hold Bumex and metolazone for now and recheck renal function in the morning. 3. Possible pneumonia. Consult with pulmonary medicine appreciated. Patient continued on Rocephin and Zithromax. Legionella antigen was negative. 4. Recent hospitalization for left leg hematoma status post I&D, stable. 5. Leukocytosis with microcytosis and from cytopenia. Patient was recently evaluated by oncology, MGUS workup was negative and patient to have a follow-up in the office. 6. History of non-small cell lung cancer in 2008 status post left pneumonectomy. 7. Hypertension and hypertensive cardiovascular disease. Continue losartan 25 mg at bedtime, Toprol-XL 100 mg daily 8. Chronic diastolic heart failure. Hold Bumex 2 mg po daily and continue losartan and Metoprolol 100 mg po daily. 9. Paroxysmal atrial fibrillation. Continue patient on eliquis and we will continue with Metoprolol ER 100 mg po daily. 10. History of sick sinus syndrome status post pacemaker implantation, stable. 11. Alcoholic peripheral neuropathy. stable. 12. Hypothyroidism. Continue levothyroxine 88 g daily. 13. GI prophylaxis. Protonix 40 mg daily. 14. DVT prophylaxis. Continue patient on eliquis. Admitted to inpatient. Estimate a length of stay 2 midnights. Patient is full code. Impression and plan of care have been directed as dictated by the signing physician. Jada Burr nurse practitioner acting as scribe for signing physician. Past Medical History Past Medical History: Coronary Artery Disease (CAD), Hypertension, Thyroid Disorder Additional Past Medical History / Comment(s): vertigo Last Myocardial Infarction Date:: 2013 History of Any Multi-Drug Resistant Organisms: None Reported Past Surgical History: Hernia Repair, Pacemaker Additional Past Surgical History / Comment(s): Left lung removed Past Anesthesia/Blood Transfusion Reactions: No Reported Reaction Type of Cardiac Device: Unknown Device Placement Date:: June, Past Psychological History: No Psychological Hx Reported Smoking Status: Never smoker Past Alcohol Use History: None Reported Past Drug Use History: None Reported - Past Family History Father Family Medical History: Memory Impairment Additional Family Medical History / Comment(s): Father at age 71 from a myocardial infarction. Mother Family Medical History: No Reported History Additional Family Medical History / Comment(s): Mother at age 92 from old age. Brother(s) Additional Family Medical History / Comment(s): Patient has 3 brothers alive with no major medical problems. One brother is dying from stomach cancer. Sister(s) Additional Family Medical History / Comment(s): Patient has one sister and she is alive. History of hypertension and hyperlipidemia. Medications and Allergies Home Medications Medication Instructions Recorded Confirmed Type Atorvastatin [Lipitor] 80 mg PO HS 06/11/20 09/21/22 History Magnesium Oxide 400 mg PO DAILY PRN 12/23/20 09/21/22 History Apixaban [Eliquis] 5 mg PO BID #60 tab 10/22/21 09/21/22 Rx Empagliflozin [Jardiance] 10 mg PO DAILY 08/21/22 09/21/22 History Ipratropium-Albuterol Nebulize 3 ml INHALATION RT-QID PRN 08/21/22 09/21/22 History [Duoneb 0.5 mg-3 mg/3 ml Soln] Levothyroxine Sodium [Synthroid] 88 mcg PO DAILY 08/21/22 09/21/22 History traZODone HCL [Desyrel] 100 mg PO HS 08/21/22 09/21/22 History Losartan [Cozaar] 25 mg PO HS #30 tab 08/26/22 09/21/22 Rx Bumetanide [BUMEX] 2 mg PO DAILY 09/21/22 09/21/22 History Metoprolol Succinate (ER) [Toprol 100 mg PO DAILY 09/21/22 09/21/22 History Xl] metOLazone [Zaroxolyn] 2.5 mg PO DAILY 09/21/22 09/21/22 History Allergies Allergy/AdvReac Type Severity Reaction Status Date / Time No Known Allergies Allergy Verified 09/21/22 16:30 Physical Exam Vitals: Vital Signs Pulse Resp BP Pulse Ox 09/22/22 02:00 76 17 128/88 97 09/21/22 22:00 60 18 113/60 99 09/21/22 20:33 91 20 86/72 99 09/21/22 19:00 76 20 97/54 96 09/21/22 16:20 75 18 110/45 97 Results CBC & Chem 7: 09/21/22 14:31 09/21/22 14:31 Labs: Abnormal Lab Results - Last 24 Hours (Table) 09/21/22 09/21/22 09/21/22 Range/Units 14:31 14:31 14:31 WBC 21.0 H (3.8-10.6) k/uL RBC 3.78 L (4.30-5.90) m/uL Hgb 9.1 L (13.0-17.5) gm/dL Hct 28.5 L (39.0-53.0) % MCV 75.4 L (80.0-100.0) fL MCH 24.0 L (25.0-35.0) pg RDW 21.8 H (11.5-15.5) % Neutrophils # 17.0 H (1.3-7.7) k/uL Monocytes # 2.5 H (0-1.0) k/uL PT 12.4 H (9.0-12.0) sec INR 1.2 H (<1.2) Chloride 93 L (98-107) mmol/L Carbon Dioxide 36 H (22-30) mmol/L BUN 55 H (9-20) mg/dL Creatinine 1.82 H (0.66-1.25) mg/dL Glucose 103 H (74-99) mg/dL Calcium 5.1 L* (8.4-10.2) mg/dL
[2022-09-22] MEDS: ATORVASTATIN 80 MG TAB PO SCH (20:25)
[2022-09-22] MEDS: traZODone HCL 100 MG TAB PO SCH (20:26)
[2022-09-22] MEDS ORDERED: LOSARTAN 25 MG TAB PO SCH (21:00)
[2022-09-23] MEDS: MAGNESIUM OXIDE 400 MG TAB PO PRN ×2 (01:43→21:05)
[2022-09-23] MEDS: LEVOTHYROXINE 88 MCG TAB PO SCH (06:27)
[2022-09-23] MEDS: APIXABAN 5 MG TAB PO SCH ×2 (09:47→21:05)
[2022-09-23] MEDS: AZITHROMYCIN 500 MG TAB PO SCH (09:47)
[2022-09-23] MEDS: PANTOPRAZOLE 40 MG TABLET PO SCH (09:47)
[2022-09-23] MEDS: DAPAGLIFLOZIN PROPANEDIOL 5 MG TABLET PO SCH (09:52)
[2022-09-23] MEDS: METOPROLOL SUCCINATE (ER) 100 MG TAB.ER.24H PO SCH (10:28)
--- NOTE | 2022-09-23 10:31 | P.PN ---
Subjective Progress Note Date: 09/23/22 HISTORY OF PRESENTING ILLNESS This is a 77-year-old male patient of Dr. 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 We have been asked to evaluate the patient for syncope. Patient had a recent hospitalization in August status post incision and drainage of the left leg hematoma and also hypovolemic shock due to acute blood loss. Patient was seen at that time by cardiology for chest pain likely related to the hypovolemic shock and acute blood loss. He was transfused 2 units of packed RBCs. Patient presented to the emergency room following a fall unclear if there was loss of consciousness. Patient had no lightheadedness or dizziness prior to the fall. No palpitations, no chest pain. EMS reported the patient was reaching for something and lost his balance and fell. He did hit his forehead on the ground but no other injuries. Patient is seen today in the emergency center. He has been resumed on his home cardiac medications. His vital signs have been stable. EKG ventricularly paced rhythm Chest x-ray: No acute pulmonary disease. Repeat Chest x-ray reveals no significant change. Left lung with left-sided v olume loss. No new right-sided pulmonary infiltrate. CAT scan of the brain and cervical spine revealed no acute intracranial process. Nonspecific white matter changes likely chronic small vessel ischemic disease. No evidence of cervical spine fracture. Mild to moderate multilevel degenerative disc disease. Scattered groundglass opacities within the visualized right upper lung concerning for atypical viral pneumonia. 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 INR 1.2. Sodium 139, potassium 3.6, BUN 55 creatinine 1.8. Calcium 5.1. Troponin 0.018 Home cardiac medications: Eliquis 5 mg twice daily, atorvastatin 80 mg at bedtime, Bumex 2 mg daily, losartan 25 mg at bedtime, metolazone 2.5 mg daily, Toprol-XL 100 mg daily, patient also on Jardiance Echocardiogram 08/24/2022 revealed normal ventricular systolic function, mild mitral regurgitation, limited study. He feels a need for care here 09/23 Patient is seen today in follow-up. Blood pressure is on the soft side and 101/50. Orthostatic vital signs were negative. Patient denies having any symptoms today. No lightheadedness or dizziness. No chest pain or shortness of breath. Influenza A, influenza B, RSV and Covid 19 not detected. Echocardiogram is pending. PHYSICAL EXAMINATION Vitals reviewed CONSTITUTIONAL: No apparent distress. HEENT: Head is normocephalic. Pupils are equal, round. Sclerae anicteric. Mucous membranes of the mouth are moist. No JVD. No carotid bruit. CHEST EXAMINATION: Lungs are clear to auscultation. No chest wall tenderness is noted on palpation or with deep breathing. HEART EXAMINATION: Regular rate and rhythm. S1, S2 heard. Systolic ejection murmur at apex, no gallops or rub. ABDOMEN: Soft, nontender. Positive bowel sounds. EXTREMITIES: 2+ peripheral pulses, no lower extremity edema and no calf tenderness. SKIN: Warm, dry NEUROLOGIC EXAMINATION: Patient is awake, alert and oriented x3. ASSESSMENT Presyncope Acute kidney injury Recent left leg hematoma status post evacuation 08/22 History of tachy-arabella syndrome and syncope status post pacemaker implantation in 07/2020 Paroxysmal atrial fibrillation on Eliquis currently ventricularly paced History of hypertension Dyslipidemia Former tobacco use Former alcohol use Non-small cell lung cancer in 2008 status post left pneumonectomy History of hypothyroidism PLAN Resume patient on his home cardiac medications Discontinue losartan Continue cardiac monitoring Obtain 2-D echocardiogram Further recommendations as patient progresses Nurse practitioner note has been reviewed, I agree with the documented findings and plan of care. Patient was seen and examined. Objective - Vital Signs Vital signs: Vital Signs Temp 98.0 F 09/23/22 07:16 Pulse 70 09/23/22 07:16 Resp 16 09/23/22 07:16 BP 101/50 09/23/22 07:53 Pulse Ox 94 L 09/23/22 08:17 FiO2 Intake & Output 09/22/22 09/23/22 09/23/22 18:59 06:59 18:59 Intake Total 200 Balance 200 Weight 73.936 kg Intake: Oral 200 Other: # Voids 1 # Bowel Movements 1 - Labs CBC & Chem 7: 09/21/22 14:31 09/21/22 14:31
[2022-09-23 11:54] LABS: HCT 32.2 % (39.6-50.0); HGB 9.3 g/dL (13.0-17.0); MCH 23.4 pg (27.0-32.0); MCHC 28.9 g/dL (32.0-37.0); MCV 81.1 fL (80.0-97.0); Mean Platelet Volume 12.9 fL (9.5-12.2); NRBC Per 100 WBC 0 /100 WBCS (0.0-0.0); Platelet Count 217 X 10*3/uL (140-440); RBC 3.97 X 10*6/uL (4.40-5.60); RDW 25.6 % (11.5-14.5); WBC 27.54 X 10*3/uL (4.50-10.00)
[2022-09-23 11:55] LABS: Acanthocytes 2+; Anisocytosis (M) 2+
--- NOTE | 2022-09-23 11:55 | CA ---
Transthoracic Echo Report Name: Cuauhtemoc Boone Age: 77 Gender: M : 1945 Exam Date: 09/23/2022 09:45 Exam Location: [facility] Ht (in): 70 Wt (lb): 163 Ordering Physician: Sae Pinon MD ([id number]) Attending/Referring Phys: Zi JAMESON [employer] Kevin Lynch RDCS Procedure CPT: Indications: Syncope Cardiac Hx: HTN; High Cholesterol; SOB; Pacemaker Rhythm; Technical Quality: Fair Contrast 1: Total Dose (mL): Contrast 2: Total Dose (mL): MEASUREMENTS (Male / Female) Normal Values 2D ECHO LV Diastolic Diameter PLAX 2.7 cm 4.2 - 5.9 / 3.9 - 5.3 cm LV Systolic Diameter PLAX 1.8 cm LV Fractional Shortening PLAX 33.3 % IVS Diastolic Thickness 2.0 cm 0.6 - 1.0 / 0.6 - 0.9 cm IVS Systolic Thickness 1.8 cm LVPW Diastolic Thickness 1.4 cm 0.6 - 1.0 / 0.6 - 0.9 cm LVPW Systolic Thickness 1.2 cm LV Relative Wall Thickness 1.2 RV Internal Dim ED PLAX 3.7 cm LVOT Diameter 1.7 cm LA Systolic Diameter LX 4.6 cm 3.0 - 4.0 / 2.7 - 3.8 cm LV Diastolic Volume MOD BP 57.4 cm??? 67 - 155 / 56 - 104 cm??? LV Systolic Volume MOD BP 35.1 cm??? 22 - 58 / 19 - 49 cm??? LV Ejection Fraction MOD BP 38.9 % >= 55 % LV Stroke Volume MOD BP 22.3 cm??? LV Diastolic Volume MOD 4C 40.0 cm??? LV Systolic Volume MOD 4C 30.2 cm??? LV Ejection Fraction MOD 4C 24.7 % LV Stroke Volume MOD 4C 9.9 cm??? LV Diastolic Length 4C 7.1 cm LV Systolic Length 4C 5.5 cm LV Diastolic Volume MOD 2C 74.8 cm??? LV Systolic Volume MOD 2C 42.0 cm??? LV Ejection Fraction MOD 2C 43.8 % LV Stroke Volume MOD 2C 32.8 cm??? LV Diastolic Length 2C 6.3 cm LV Systolic Length 2C 5.4 cm M-MODE Aortic Root Diameter MM 3.5 cm LA Systolic Diameter MM 4.9 cm LA Ao Ratio MM 1.4 AV Cusp Separation MM 1.6 cm DOPPLER AV Peak Velocity 150.3 cm/s AV Peak Gradient 9.0 mmHg MV Peak Velocity 109.0 cm/s MV Peak Gradient 4.8 mmHg MV Mean Velocity 82.6 cm/s MV Mean Gradient 2.9 mmHg MV Velocity Time Integral 33.2 cm MV Deceleration Carver 224.1 cm/s??? MR Peak Velocity 459.5 cm/s MR Peak Gradient 84.5 mmHg MR Mean Velocity 284.3 cm/s MR Mean Gradient 40.4 mmHg MR Velocity Time Integral 111.5 cm MR Flow Rate PISA 168.7 cm???/s Mitral E Point Velocity 87.5 cm/s Mitral A Point Velocity 72.9 cm/s Mitral E to A Ratio 1.2 MV Deceleration Time 390.2 ms MV E' Velocity 4.6 cm/s Mitral E to MV E' Ratio 19.0 Pulmonary Vein Systolic Velocity 44.1 cm/s Pulmonary Vein Diastolic Velocit 55.1 cm/s Pulmonary Vein S/D Ratio 0.8 Pulmonary Vein A Velocity 30.1 cm/s Pulmonary Vein A to Mitral A Rat 0.4 TR Peak Velocity 247.5 cm/s TR Peak Gradient 24.5 mmHg Right Ventricular Systolic Press 34.5 mmHg PV Peak Velocity 99.1 cm/s PV Peak Gradient 3.9 mmHg FINDINGS Left Ventricle Left ventricular ejection fraction is estimated at 50-55 %. Grade 2 diastolic dysfunction. Probable clot attached to the basa region of the IVS. Right Ventricle Right ventricular dilatation. Catheter/pacemaker wire in the right ventricular cavity. RVSP- 34 mm Hg. Right Atrium Mild right atrial dilatation. Catheter/pacemaker wire in the right atrial cavity. Left Atrium Mild left atrial dilatation. Mitral Valve Mitral valve thickened. [id number] mitral regurgitation. Aortic Valve Trileaflet aortic valve. Focal thickening of the aortic valve cusps. Tricuspid Valve [id number] tricuspid regurgitation. Pulmonic Valve [id number] pulmonic regurgitation. Pericardium Normal pericardium. No pericardial effusion. Aorta Mild aortic dilatation at the level of the sinuses of valsalva (root). CONCLUSIONS Normal LV function Mild to moderate tricuspid regurgitation Moderate to severe mitral regurgitation Previewed by: Dr. Sae Pinon MD (Electronically Signed) Final Date: 23 September 2022 11:55
[2022-09-23 13:21] LABS: African American GFR (CKD) 50.9 (60.0-200.0); Anion Gap 22.9 mmol/L (10.00-18.00); BUN/Creat Ratio 18.6 Ratio (12.00-20.00); Blood Urea Nitrogen 27.9 mg/dL (9.0-27.0); Calcium 5.7 mg/dL (8.7-10.3); Carbon Dioxide 27.1 mmol/L (20.0-27.5); Potassium 3.2 mmol/L (3.5-5.5)
[2022-09-23 14:49] VITALS: BMI 23.3
--- NOTE | 2022-09-23 16:41 | P.PN ---
Subjective Progress Note Date: 09/23/22 Today's evaluation of 09/23/2022, the patient remains on 3 L of oxygen by nasal cannula. No major respiratory distress. No cough or sputum production. No cardiac rhythm was done and the patient is a preserved LV function. No significant valvular abnormalities. The patient presented to the hospital be cause of a presyncope. The patient also had an acute kidney injury. He has a pacemaker in place for previous tachybradycardia syndrome. His white cell count remains elevated at 27, hemoglobin stable at 9.3. BUN is at 27 and a creatinine is up to 1.5. Sodium is at 144. Calcium level is low at 5.7 and the troponins 0.01. Stool for C. diff has been negative. Objective - Vital Signs Vital signs: Vital Signs Temp 98.3 F 09/23/22 13:13 Pulse 83 09/23/22 08:45 Resp 20 09/23/22 13:13 BP 95/48 09/23/22 13:13 Pulse Ox 95 09/23/22 15:36 FiO2 Intake & Output 09/22/22 09/23/22 09/23/22 18:59 06:59 18:59 Intake Total 200 Balance 200 Weight 73.936 kg 73.936 kg Intake: Oral 200 Other: # Voids 1 # Bowel Movements 1 - Exam Physical Exam: Revealed 77-year-old white male in no distress. The patient is currently on 3 L of Oxymizer nasal cannula Head: Atraumatic normocephalic. HEENT:[ PERRLA, EOMI, dry mucous membranes. Neck is supple.] [No neck masses.] [No thyromegaly.] [No JVD.] Chest: [Diminished breath sound on the left side, normal breath sounds on the right side. No rhonchi no wheezes. Cardiac Exam: Normal S1 and S2, 2/6 systolic murmur at the apex, no gallop, no rub Abdomen: [Soft, nontender, no megaly, no rebound, no guarding, normal bowel sounds.] Extremities: [No clubbing, no edema, no cyanosis. Surgical dressing noted in the left calf region, related to recent evacuation of hematoma. No evidence of swelling or hematoma recurrence. There is however significant swelling noted over the left hip area laterally.] Neurological Exam: Alert and oriented 3. [No focal neurologic deficit.] Psychiatric: Normal mood affect and normal mental status examination. Skin: No rashes. - Labs CBC & Chem 7: 09/23/22 05:26 09/23/22 05:26 Labs: Abnormal Lab Results - Last 24 Hours (Table) 09/23/22 09/23/22 Range/Units 05:26 05:26 WBC 27.54 H (4.50-10.00) X 10*3/uL RBC 3.97 L (4.40-5.60) X 10*6/uL Hgb 9.3 L (13.0-17.0) g/dL Hct 32.2 L (39.6-50.0) % MCH 23.4 L (27.0-32.0) pg MCHC 28.9 L (32.0-37.0) g/dL RDW 25.6 H (11.5-14.5) % MPV 12.9 H (9.5-12.2) fL Potassium 3.2 L (3.5-5.5) mmol/L Chloride 94 L (96-109) mmol/L Anion Gap 22.90 H (10.00-18.00) mmol/L BUN 27.9 H (9.0-27.0) mg/dL Est GFR (CKD-EPI)AfAm 50.9 L (60.0-200.0) Est GFR (CKD-EPI)NonAf 44.0 L (60.0-200.0) Calcium 5.7 L* (8.7-10.3) mg/dL Assessment and Plan Plan: History of recurrent falls Questionable right sided pneumonia involving the right upper lobe as CAT scan of the neck has shown some limited groundglass changes in the right upper lobe area, consider atypical pneumonia. The patient remains on 3 L of oxygen by nasal cannula. Leukocytosis Left pneumonectomy with complete investigation of the left lung and volume loss Acute kidney injury and the creatinine is up to 1.8, renal function is improving. History of pacemaker implantation for tachybradycardia syndrome. History of hypertension History of hypothyroidism History of non-small cell lung cancer and previous left-sided pneumonectomy in 2008 Ex-smoker Previous history of a Left lower extremity hematoma being addressed by orthopedics, patient is status post evacuation of hematoma on 08/22/2022. Left hip trauma and intramuscular hemorrhage, history of Plan Continue Rocephin and Zithromax Obtain a noncontrast CAT scan of the chest Monitor the white cell count Oxygen at 3 L a minute nasal cannula IV fluids Monitor renal function, creatinine is improving Resume all medications I would suggest reconsidering the use of Eliquis as the patient has history of recurrent falls and will be at high risk of bleeding in the future. We'll continue to follow
--- NOTE | 2022-09-23 17:18 | CT ---
EXAMINATION TYPE: CT chest wo con CT DLP: 383.4 mGycm, Automated exposure control for dose reduction was used. DATE OF EXAM: 09/23/2022 5:05 PM COMPARISON: CT 12/23/2020 chest radiograph from one day prior. CLINICAL INDICATION:Male, 77 years old with history of Suspected pneumonia; pneumonia TECHNIQUE: Multiple axial images were obtained through the chest. Sagittal and coronal reformats were created for review. Contrast used: none. Oral contrast used: none. FINDINGS: LUNGS/ PLEURA: The left lung appears surgically absent. There is leftward deviation of the lung. Smal l pleural effusion present. There is a nodular changes in the pleural space measuring 2.3 x 2.1 cm. S cattered groundglass opacities are seen throughout the right lung which have improved from prior on .. No focal right-sided consolidation pneumothorax or pleural effusion. AIRWAY: Patent and unremarkable. HEART: The heart is mildly enlarged for size. There is cardiac conduction leads present. MEDIASTINUM: No gross evidence of adenopathy. VASCULATURE: No aortic aneurysm. Atherosclerosis of the arterial vasculature. MUSCULOSKELETAL: No acute osseous abnormalities SOFT TISSUES/LYMPH NODES: Unremarkable. LOWER NECK: No significant findings. UPPER ABDOMEN: The gallbladder is surgically absent. There is a small hiatal hernia. IMPRESSION: 1. Scattered ground glass opacities throughout the right lungs which have improved from 2020 and cou ld represent new atypical infection versus chronic scarring. Clinical correlation advised. 2. Posttreatment changes with suspected removal of the left lung. There is small fluid collection wi thin the pleural space with some irregular appearance more superiorly and posteriorly. Scattered repr esent debris within the fluid. Consider MRI and/or ultrasound.
[2022-09-23] MEDS ORDERED: POTASSIUM CHLORIDE ER 20 MEQ TAB.ER PO STA (18:39)
[2022-09-23] MEDS ORDERED: SODIUM CHLORIDE 0.9% 500 ML 500 ML IV ONE (18:40)
[2022-09-23] MEDS: traZODone HCL 100 MG TAB PO SCH (21:05)
[2022-09-23] MEDS: ATORVASTATIN 80 MG TAB PO SCH (21:05)
[2022-09-24] MEDS: APIXABAN 5 MG TAB PO SCH ×2 (08:32→20:04)
[2022-09-24] MEDS: PANTOPRAZOLE 40 MG TABLET PO SCH (08:32)
[2022-09-24] MEDS: DAPAGLIFLOZIN PROPANEDIOL 5 MG TABLET PO SCH (08:32)
[2022-09-24] MEDS: LEVOTHYROXINE 88 MCG TAB PO SCH (08:32)
[2022-09-24] MEDS: METOPROLOL SUCCINATE (ER) 100 MG TAB.ER.24H PO SCH (08:51)
[2022-09-24 11:49] LABS: Acanthocytes 2+; Basophils # (A) 0.04 X 10*3/uL (0.00-0.10); Basophils % (A) 0.2 %; Eosinophils # (A) 0.13 X 10*3/uL (0.04-0.35); Eosinophils % (A) 0.7 %; HCT 28.6 % (39.6-50.0); HGB 8.6 g/dL (13.0-17.0); Lymphocytes # (A) 1.64 X 10*3/uL (0.90-5.00); Lymphocytes % (A) 9.3 %; MCH 23.6 pg (27.0-32.0); MCHC 30.1 g/dL (32.0-37.0); MCV 78.4 fL (80.0-97.0); Mean Platelet Volume 11.7 fL (9.5-12.2); Microcytosis (M) 2+; Monocytes # (A) 4.26 X 10*3/uL (0.20-1.00); Monocytes % (A) 24.2 %; NRBC Per 100 WBC 0 /100 WBCS (0.0-0.0); Neutrophils # (A) 11.34 X 10*3/uL (1.80-7.70); Neutrophils % (A) 64.6 %; Platelet Count 216 X 10*3/uL (140-440); RBC 3.65 X 10*6/uL (4.40-5.60); RDW 25.1 % (11.5-14.5); WBC 17.59 X 10*3/uL (4.50-10.00)
--- NOTE | 2022-09-24 12:33 | P.PN ---
Subjective Progress Note Date: 09/24/22 HISTORY OF PRESENTING ILLNESS This is a 77-year-old male patient of Dr. 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 We have been asked to evaluate the patient for syncope. Patient had a recent hospitalization in August status post incision and drainage of the left leg hematoma and also hypovolemic shock due to acute blood loss. Patient was seen at that time by cardiology for chest pain likely related to the hypovolemic shock and acute blood loss. He was transfused 2 units of packed RBCs. Patient presented to the emergency room following a fall unclear if there was loss of consciousness. Patient had no lightheadedness or dizziness prior to the fall. No palpitations, no chest pain. EMS reported the patient was reaching for something and lost his balance and fell. He did hit his forehead on the ground but no other injuries. Patient is seen today in the emergency center. He has been resumed on his home cardiac medications. His vital signs have been stable. EKG ventricularly paced rhythm Chest x-ray: No acute pulmonary disease. Repeat Chest x-ray reveals no significant change. Left lung with left-sided v olume loss. No new right-sided pulmonary infiltrate. CAT scan of the brain and cervical spine revealed no acute intracranial process. Nonspecific white matter changes likely chronic small vessel ischemic disease. No evidence of cervical spine fracture. Mild to moderate multilevel degenerative disc disease. Scattered groundglass opacities within the visualized right upper lung concerning for atypical viral pneumonia. 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 INR 1.2. Sodium 139, potassium 3.6, BUN 55 creatinine 1.8. Calcium 5.1. Troponin 0.018 Home cardiac medications: Eliquis 5 mg twice daily, atorvastatin 80 mg at bedtime, Bumex 2 mg daily, losartan 25 mg at bedtime, metolazone 2.5 mg daily, Toprol-XL 100 mg daily, patient also on Jardiance Echocardiogram 08/24/2022 revealed normal ventricular systolic function, mild mitral regurgitation, limited study. He feels a need for care here 09/23 Patient is seen today in follow-up. Blood pressure is on the soft side and 101/50. Orthostatic vital signs were negative. Patient denies having any symptoms today. No lightheadedness or dizziness. No chest pain or shortness of breath. Influenza A, influenza B, RSV and Covid 19 not detected. Echocardiogram is pending. 09/24 Patient underwent CAT scan of the chest which revealed scattered groundglass opacities throughout the right lung which have improved from 2020 and could represent new atypical infection versus chronic scarring. Posttreatment changes suspected removal of the left lung. There is small fluid collection within the pleural space with some irregular appearance more superoinferiorly and posteriorly. Scattered debris within the fluid. Consider MRI. Echocardiogram reveals normal LV function. [id number] tricuspid regurgitation. Moderate to severe mitral regurgitation. Patient states his breathing status is stable today. He denies shortness of breath. He denies any diarrhea. His blood pressures have continued to be soft. He will did have a fluid bolus last evening. Orthostatic showed a change from systolic of 95 supine to a systolic of 81 with standing. WBC 16.5, hemoglobin 8.6, platelet count 216. Chemistry panel not reported. PHYSICAL EXAMINATION Vitals reviewed CONSTITUTIONAL: No apparent distress. HEENT: Head is normocephalic. Pupils are equal, round. Sclerae anicteric. Mucous membranes of the mouth are moist. No JVD. No carotid bruit. CHEST EXAMINATION: Diminished breath sounds. No chest wall tenderness is noted on palpation or with deep breathing. HEART EXAMINATION: Regular rate and rhythm. S1, S2 heard. Systolic ejection murmur at apex, no gallops or rub. ABDOMEN: Soft, nontender. Positive bowel sounds. EXTREMITIES: 2+ peripheral pulses, no lower extremity edema and no calf tenderness. SKIN: Warm, dry NEUROLOGIC EXAMINATION: Patient is awake, alert and oriented x3. ASSESSMENT Presyncope Acute kidney injury Pneumonia Recent left leg hematoma status post evacuation 08/22 History of tachy-arabella syndrome and syncope status post pacemaker implantation in 07/2020 Paroxysmal atrial fibrillation on Eliquis currently ventricularly paced History of hypertension Dyslipidemia Former tobacco use Former alcohol use Non-small cell lung cancer in 2008 status post left pneumonectomy History of hypothyroidism PLAN Resume patient on his home cardiac medications Losartan has been discontinued Start patient on midodrine 5 mg every 8 hours Further recommendations as patient progresses Nurse practitioner note has been reviewed, I agree with the documented findings and plan of care. Patient was seen and examined. Objective - Vital Signs Vital signs: Vital Signs Temp 97.6 F 09/24/22 01:07 Pulse 80 09/24/22 01:07 Resp 15 09/24/22 01:07 BP 92/48 09/24/22 01:07 Pulse Ox 96 09/24/22 01:07 FiO2 Intake & Output 09/23/22 09/24/22 09/24/22 18:59 06:59 18:59 Intake Total 240 200 Output Total 600 Balance -360 200 Weight 73.936 kg Intake: Oral 240 200 Output: Urine 600 Other: # Voids 1 # Bowel Movements 1 - Labs CBC & Chem 7: 09/24/22 06:30 09/23/22 05:26 Labs: Abnormal Lab Results - Last 24 Hours (Table) 09/23/22 09/23/22 Range/Units 05:26 05:26 WBC 27.54 H (4.50-10.00) X 10*3/uL RBC 3.97 L (4.40-5.60) X 10*6/uL Hgb 9.3 L (13.0-17.0) g/dL Hct 32.2 L (39.6-50.0) % MCH 23.4 L (27.0-32.0) pg MCHC 28.9 L (32.0-37.0) g/dL RDW 25.6 H (11.5-14.5) % MPV 12.9 H (9.5-12.2) fL Potassium 3.2 L (3.5-5.5) mmol/L Chloride 94 L (96-109) mmol/L Anion Gap 22.90 H (10.00-18.00) mmol/L BUN 27.9 H (9.0-27.0) mg/dL Est GFR (CKD-EPI)AfAm 50.9 L (60.0-200.0) Est GFR (CKD-EPI)NonAf 44.0 L (60.0-200.0) Calcium 5.7 L* (8.7-10.3) mg/dL
[2022-09-24] MEDS: MIDODRINE 5 MG TAB PO SCH ×2 (13:12→17:07)
[2022-09-24 13:54] LABS: African American GFR (CKD) 57.9 (60.0-200.0); Albumin 2.8 g/dL (3.8-4.9); Albumin/Globulin Ratio 1.35 (1.60-3.17); Anion Gap 14.4 mmol/L (10.00-18.00); BUN/Creat Ratio 20.3 Ratio (12.00-20.00); Blood Urea Nitrogen 27.4 mg/dL (9.0-27.0); Calcium 5.1 mg/dL (8.7-10.3); Carbon Dioxide 32.1 mmol/L (20.0-27.5); Globulin 2.1 g/dL (1.6-3.3); Non-African American GFR(CKD) 49.9 (60.0-200.0); Potassium 2.8 mmol/L (3.5-5.5); Total Bilirubin 1.5 mg/dL (0.30-1.20); Total Protein 4.9 g/dL (6.2-8.2)
[2022-09-24] MEDS ORDERED: POTASSIUM CHLORIDE ER 20 MEQ TAB.ER PO STA (14:38)
--- NOTE | 2022-09-24 14:42 | P.PN ---
Subjective Progress Note Date: 09/24/22 HISTORY OF PRESENT ILLNESS: This is a 77-year-old male patient of [facility] with past medical history of non-small cell lung cancer diagnosed in 2008 status post lobectomy, remote history of tobacco use, remote history of alcohol abuse, alcoholic peripheral neuropathy, hypertension, coronary artery disease, paroxysmal atrial fibrillation on eliquis, history of tachybradycardia syndrome status post pacemaker implantation. Patient had a recent hospitalization in August for left leg hematoma status post I&D with hypovolemic shock due to acute blood loss. Patient was transfused 2 units of packed RBCs. Patient was stabilized and discharged to [facility] for subacute rehab. Patient has essentially been discharged to his home. Patient had a fall unclear if there was loss of consciousness. Patient had no lightheadedness or dizziness prior to the fall. No palpitations, no chest pain. EMS reported the patient was reaching for something and lost his balance and fell. He did hit his forehead on the ground but no other injuries. Patient is seen today in the emergency center waiting for a bed on the [facility] floor. His vital signs were found to be stable. EKG ventricularly paced rhythm. Chest x-ray: No acute pulmonary disease. Repeat Chest x-ray reveals no significant change. Left lung with left-sided volume loss. No new right-sided pulmonary infiltrate. CAT scan of the brain and cervical spine revealed no acute intracranial process. Nonspecific white matter changes likely chronic small vessel ischemic disease. No evidence of cervical spine fracture. Mild to moderate multilevel degenerative disc disease. Scattered groundglass opacities within the visualized right upper lung concerning for atypical viral pneumonia. 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 Pelvic x-ray no acute findings. WBC 21, hemoglobin 9.1, platelet count 220. INR 1.2. Sodium 139, potassium 3.6, BUN 55 creatinine 1.8. Calcium 5.1. Troponin 0.018 09/23: Patient has been reevaluated by cardiology and blood pressure this morning was soft 101/50 and losartan was placed on hold. Yesterday testing was done for influenza A, influenza B, RSV, Covid 19 BACK not detected. This morning, patient denies having any lightheadedness or dizziness, no chest pain or shortness of breath. Orthostatic vital signs obtained yesterday were negative. 09/24: Patient underwent CAT scan of the chest which revealed scattered groundglass opacities throughout the right lung which have improved from 2020 and could represent new atypical infection versus chronic scarring. Posttreatment changes suspected removal of the left lung. There is small fluid collection within the pleural space with some irregular appearance more superoinferiorly and posteriorly. Scattered debris within the fluid. Consider MRI. Echocardiogram reveals normal LV function. [id number] tricuspid regurgitation. Moderate to severe mitral regurgitation. Patient states his breathing status is stable today. He denies shortness of breath. He denies any diarrhea. His blood pressures have continued to be soft. He will did have a fluid bolus last evening. Orthostatic showed a change from systolic of 95 supine to a systolic of 81 with standing. WBC 16.5, hemoglobin 8.6, platelet count 216. Sodium 140, potassium 2.8 and will be replaced, chloride 94, CO2 32, BUN 27 creatinine 1.4. Calcium 5.1. Magnesium 1.0. Total bilirubin 1.5, AST 49, ALT 51, alkaline phosphatase 130. A repeat coronavirus PCR not detected. Magnesium will also be replaced. Cardiology has started the patient on midodrine 5 mg 3 times daily Insurance authorization process to be started in anticipation of discharge on Wednesday to [facility] for subacute rehab. REVIEW OF SYSTEMS: Constitutional: No documented fever, no chills, no night sweats. No weight change. No weakness, fatigue or lethargy. No daytime sleepiness. HEENT: No headache. No blurred vision or double vision, no loss of vision. very hard of Hearing, no ringing in the ears, no dizziness. No nasal drainage or congestion. No epistaxis. No sore throat. Lungs: No shortness of breath, no cough, no sputum production. no wheezing. Cardiovascular: No chest pain, positive for lower extremity edema. No palpitations. No paroxysmal nocturnal dyspnea. No orthopnea. No lightheadedness or dizziness. Reports syncopal episode versus mechanical fall. Abdominal: Reports no abdominal pain. No nausea, vomiting. Denies diarrhea. No constipation. No bloody or tarry stools reports loss of appetite. Genitourinary: No dysuria, increased frequency, urgency. No urinary retention. Musculoskeletal: positive for myalgias. positive for right muscle weakness, positive for gait dysfunction, positive for frequent falls, positive for back pain and neck pain, reports pelvic discomfort Integumentary: No wounds, no lesions. No rash or pruritus. Neurologic: No aphasia. No facial droop. No change in mentation. No head injury. No headache. No paralysis. No paresthesia. Psychiatric: positive for depression, positive for anxiety. No mood swings. Endocrine: No abnormal blood sugars. No weight change. PHYSICAL EXAMINATION: General: This is a 77-year-old male resting in bed in minimal distress HEENT: Head is atraumatic, normocephalic, pupils were equal round reactive to light and recommendation, extraocular muscle movement were intact, sclera nonicteric, conjunctivae were pale, mucous membranes of the mouth are somewhat dry. Neck: Supple, no JVP, normal carotid upstroke bilaterally, no lymphadenopathy. Chest: Decreased breath sounds at the bases, no wheezes, no chest wall tenderness, no intercostal retractions. Heart: First heart sound is normal, second heart sounds normal, systolic ejection murmur 2/6 located at the left sternal border. Abdomen: Soft, nontender, nondistended, positive bowel sounds. Extremities: There is no edema no calf tenderness DP +1 bilaterally Neurologic examination: Patient is awake alert and oriented 3, cranial nerves II-12 appear grossly intact, muscle power were 4 out of 5 in upper extremities and 2 out of 5 in bilateral lower extremities, deep tendon reflexes normal bilaterally. ASSESSMENT AND PLAN: 1. Syncopal episode versus mechanical fall most likely due to hypotension. Cardiology consult appreciated. Patient has been started on midodrine 5 mg 3 times daily. 2. Acute kidney injury. Plan to hold Bumex and metolazone for now and recheck renal function in the morning. 3. Possible pneumonia. Consult with pulmonary medicine appreciated. Patient continued on Rocephin and Zithromax. Legionella antigen was negative. Influenza A, influenza B, RSV and Covid 19 negative. 4. Recent hospitalization for left leg hematoma status post I&D, stable. 5. Leukocytosis with microcytosis and from cytopenia. Patient was recently evaluated by oncology, MGUS workup was negative and patient to have a follow-up in the office. 6. History of non-small cell lung cancer in 2009 status post left pneumonectomy. 7. Hypertension and hypertensive cardiovascular disease. Discontinue losartan 25 mg at bedtime per cardiology and continue patient on Toprol-XL 100 mg daily 8. Chronic diastolic heart failure. Hold Bumex 2 mg po daily and Metoprolol 100 mg po daily. 9. Paroxysmal atrial fibrillation. Continue patient on eliquis and we will continue with Metoprolol ER 100 mg po daily. 10. History of sick sinus syndrome status post pacemaker implantation, stable. 11. Alcoholic peripheral neuropathy. stable. 12. Hypothyroidism. Continue levothyroxine 88 g daily. 13. GI prophylaxis. Protonix 40 mg daily. 14. DVT prophylaxis. Continue patient on eliquis. Patient is full code. Discharge planning: [facility] Impression and plan of care have been directed as dictated by the signing physician. Jada Burr nurse practitioner acting as scribe for signing physician. Objective - Vital Signs Vital signs: Vital Signs Temp 97.6 F 09/24/22 01:07 Pulse 80 09/24/22 01:07 Resp 15 09/24/22 01:07 BP 92/48 09/24/22 01:07 Pulse Ox 96 09/24/22 01:07 FiO2 Intake & Output 09/23/22 09/24/22 09/24/22 18:59 06:59 18:59 Intake Total 240 200 Output Total 600 Balance -360 200 Weight 73.936 kg Intake: Oral 240 200 Output: Urine 600 Other: # Voids 1 # Bowel Movements 1 - Labs CBC & Chem 7: 09/24/22 06:30 09/24/22 06:30 Labs: Abnormal Lab Results - Last 24 Hours (Table) 09/23/22 09/23/22 Range/Units 05:26 05:26 WBC 27.54 H (4.50-10.00) X 10*3/uL RBC 3.97 L (4.40-5.60) X 10*6/uL Hgb 9.3 L (13.0-17.0) g/dL Hct 32.2 L (39.6-50.0) % MCH 23.4 L (27.0-32.0) pg MCHC 28.9 L (32.0-37.0) g/dL RDW 25.6 H (11.5-14.5) % MPV 12.9 H (9.5-12.2) fL Potassium 3.2 L (3.5-5.5) mmol/L Chloride 94 L (96-109) mmol/L Anion Gap 22.90 H (10.00-18.00) mmol/L BUN 27.9 H (9.0-27.0) mg/dL Est GFR (CKD-EPI)AfAm 50.9 L (60.0-200.0) Est GFR (CKD-EPI)NonAf 44.0 L (60.0-200.0) Calcium 5.7 L* (8.7-10.3) mg/dL
--- NOTE | 2022-09-24 14:45 | P.PN ---
Subjective Progress Note Date: 09/23/22 HISTORY OF PRESENT ILLNESS: This is a 77-year-old male patient of [facility] with past medical history of non-small cell lung cancer diagnosed in 2008 status post lobectomy, remote history of tobacco use, remote history of alcohol abuse, alcoholic peripheral neuropathy, hypertension, coronary artery disease, paroxysmal atrial fibrillation on eliquis, history of tachybradycardia syndrome status post pacemaker implantation. Patient had a recent hospitalization in August for left leg hematoma status post I&D with hypovolemic shock due to acute blood loss. Patient was transfused 2 units of packed RBCs. Patient was stabilized and discharged to [facility] for subacute rehab. Patient has essentially been discharged to his home. Patient had a fall unclear if there was loss of consciousness. Patient had no lightheadedness or dizziness prior to the fall. No palpitations, no chest pain. EMS reported the patient was reaching for something and lost his balance and fell. He did hit his forehead on the ground but no other injuries. Patient is seen today in the emergency center waiting for a bed on the [facility] floor. His vital signs were found to be stable. EKG ventricularly paced rhythm. Chest x-ray: No acute pulmonary disease. Repeat Chest x-ray reveals no significant change. Left lung with left-sided volume loss. No new right-sided pulmonary infiltrate. CAT scan of the brain and cervical spine revealed no acute intracranial process. Nonspecific white matter changes likely chronic small vessel ischemic disease. No evidence of cervical spine fracture. Mild to moderate multilevel degenerative disc disease. Scattered groundglass opacities within the visualized right upper lung concerning for atypical viral pneumonia. 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 Pelvic x-ray no acute findings. WBC 21, hemoglobin 9.1, platelet count 220. INR 1.2. Sodium 139, potassium 3.6, BUN 55 creatinine 1.8. Calcium 5.1. Troponin 0.018 09/23 Patient has been reevaluated by cardiology and blood pressure this morning was soft 101/50 and losartan was placed on hold. Yesterday testing was done for influenza A, influenza B, RSV, Covid 19 BACK not detected. This morning, patient denies having any lightheadedness or dizziness, no chest pain or shortness of breath. Orthostatic vital signs obtained yesterday were negative. Patient is eating and drinking without difficulty. However he has had 3 bowel movements today. REVIEW OF SYSTEMS: Constitutional: No documented fever, no chills, no night sweats. No weight change. No weakness, fatigue or lethargy. No daytime sleepiness. HEENT: No headache. No blurred vision or double vision, no loss of vision. very hard of Hearing, no ringing in the ears, no dizziness. No nasal drainage or congestion. No epistaxis. No sore throat. Lungs: No shortness of breath, no cough, no sputum production. no wheezing. Cardiovascular: No chest pain, positive for lower extremity edema. No palpitat ions. No paroxysmal nocturnal dyspnea. No orthopnea. No lightheadedness or dizziness. Reports syncopal episode versus mechanical fall. Abdominal: Reports no abdominal pain. No nausea, vomiting. No diarrhea. No constipation. No bloody or tarry stools reports loss of appetite. Genitourinary: No dysuria, increased frequency, urgency. No urinary retention. Musculoskeletal: positive for myalgias. positive for right muscle weakness, positive for gait dysfunction, positive for frequent falls, positive for back pain and neck pain, reports pelvic discomfort Integumentary: No wounds, no lesions. No rash or pruritus. Neurologic: No aphasia. No facial droop. No change in mentation. No head injury. No headache. No paralysis. No paresthesia. Psychiatric: positive for depression, positive for anxiety. No mood swings. Endocrine: No abnormal blood sugars. No weight change. PHYSICAL EXAMINATION: General: This is a 77-year-old male resting in bed in minimal distress HEENT: Head is atraumatic, normocephalic, pupils were equal round reactive to light and recommendation, extraocular muscle movement were intact, sclera nonicteric, conjunctivae were pale, mucous membranes of the mouth are somewhat dry. Neck: Supple, no JVP, normal carotid upstroke bilaterally, no lymphadenopathy. Chest: Decreased breath sounds at the bases, no wheezes, no chest wall tenderness, no intercostal retractions. Heart: First heart sound is normal, second heart sounds normal, systolic ejection murmur 2/6 located at the left sternal border. Abdomen: Soft, nontender, nondistended, positive bowel sounds. Extremities: There is no edema no calf tenderness DP +1 bilaterally Neurologic examination: Patient is awake alert and oriented 3, cranial nerves II-12 appear grossly intact, muscle power were 4 out of 5 in upper extremities and 2 out of 5 in bilateral lower extremities, deep tendon reflexes normal bilaterally. ASSESSMENT AND PLAN: 1. Syncopal episode versus mechanical fall. Cardiology consult appreciated. Orthostatic vital signs, telemetry monitoring, echocardiogram. 2. Acute kidney injury. Plan to hold Bumex and metolazone for now and recheck renal function in the morning. 3. Possible pneumonia. Consult with pulmonary medicine appreciated. Patient continued on Rocephin and Zithromax. Legionella antigen was negative. Influenza A, influenza B, RSV and Covid 19 negative. 4. Recent hospitalization for left leg hematoma status post I&D, stable. 5. Leukocytosis with microcytosis and from cytopenia. Patient was recently evaluated by oncology, MGUS workup was negative and patient to have a follow-up in the office. 6. History of non-small cell lung cancer in 2008 status post left pneumonectomy. 7. Hypertension and hypertensive cardiovascular disease. Discontinue losartan 25 mg at bedtime per cardiology and continue patient on Toprol-XL 100 mg daily 8. Chronic diastolic heart failure. Hold Bumex 2 mg po daily and Metoprolol 100 mg po daily. 9. Paroxysmal atrial fibrillation. Continue patient on eliquis and we will continue with Metoprolol ER 100 mg po daily. 10. History of sick sinus syndrome status post pacemaker implantation, stable. 11. Alcoholic peripheral neuropathy. stable. 12. Hypothyroidism. Continue levothyroxine 88 g daily. 13. GI prophylaxis. Protonix 40 mg daily. 14. DVT prophylaxis. Continue patient on eliquis. Patient is full code. Impression and plan of care have been directed as dictated by the signing physician. Jada Burr nurse practitioner acting as scribe for signing physician. Objective - Vital Signs Vital signs: Vital Signs Temp 98.0 F 09/23/22 07:16 Pulse 70 09/23/22 07:16 Resp 16 09/23/22 07:16 BP 101/50 09/23/22 07:53 Pulse Ox 94 L 09/23/22 08:17 FiO2 Intake & Output 09/22/22 09/23/22 09/23/22 18:59 06:59 18:59 Intake Total 200 Balance 200 Weight 73.936 kg Intake: Oral 200 Other: # Voids 1 # Bowel Movements 1 - Labs CBC & Chem 7: 09/24/22 06:30 09/24/22 06:30
[2022-09-24] MEDS ORDERED: Magnesium Replacement Protocol 1 EACH MISC MISCELLANE PRN (14:46)
[2022-09-24] MEDS: MAGNESIUM SULFATE-D5W PMX 1 GM in DEXTROSE/WATER 1 100ML.BAG IVPB SCH ×4 (15:37→20:02)
--- NOTE | 2022-09-24 16:22 | P.PN ---
Subjective Progress Note Date: 09/24/22 Principal diagnosis: Fall, possible community-acquired pneumonia A pleasant 77-year-old male patient came into the emergency department after he fell. He has history of recurrent falls. He is also hard of hearing. The patient has no good recollection of the events that led him to fall. He did hit his forehead on the ground. Based on that, the patient was brought into the emergency. The chest x-ray shows complete opacification of the left lung related to previous pneumonectomy. 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 No coffee no sputum production. No worsening shortness of breath. Is currently on 2 L of oxygen by nasal cannula. Is hemodynamically stable. He has a white cell count of 21 his white cell count has been chronically elevated. His hemoglobin is at 9.1 with a platelet count of 220. Normal coagulation profile. Creatinine is 1.8 with a BUN of 55 and a sodium level is at 139. Troponins are 0.018. Legionella urine antigen was negative. The patient has had a CAT scan of the brain that showed no acute intracranial process. No evidence of any cervical fracture. There is mild to moderate multilevel degenerative disc disease. Limited scattered groundglass changes in the right upper lobe. Today's evaluation of 09/23/2022, the patient remains on 3 L of oxygen by nasal cannula. No major respiratory distress. No cough or sputum production. No cardiac rhythm was done and the patient is a preserved LV function. No significant valvular abnormalities. The patient presented to the hospital because of a presyncope. The patient also had an acute kidney injury. He has a pacemaker in place for previous tachybradycardia syndrome. His white cell count remains elevated at 27, hemoglobin stable at 9.3. BUN is at 27 and a creatinine is up to 1.5. Sodium is at 144. Calcium level is low at 5.7 and the troponins 0.01. Stool for C. diff has been negative. I'm seeing this patient in follow-up today 09/24/2022 on the general medical floor. Patient is currently resting in bed, 2 L nasal cannula, in no acute distress. Patient is oxygenating at 100%. Patient denies any difficulty breathing. Patient's chest CT without contrast done yesterday showed scattered groundglass opacities throughout the right lungs which were improved compared to 2020 and could represent atypical infection versus scarring. Patient also has surgical left pneumonectomy. Patient remains on a course of Rocephin. Patient's CBC from today shows an improvement in the patient's leukocytosis down to 18, hemoglobin stable at 8.6, hematocrit 28.6, platelets 216,000. Patient does have a procalcitonin level pending. Patient's BMP from today shows a sodium of 140, potassium 2.8, chloride 94, serum CO2 32, B1 27, creatinine 1.4, glucose 81. Calcium was also low. Patient's electrolytes have been replaced. LFTs are mildly elevated. Patient was negative for COVID-19, RSV, influenza. No maintenance fluids infusing. Vital signs are stable. Objective - Vital Signs Vital signs: Vital Signs Temp 97.7 F 09/24/22 13:15 Pulse 70 09/24/22 13:15 Resp 16 09/24/22 13:15 BP 95/45 09/24/22 13:15 Pulse Ox 100 09/24/22 13:15 FiO2 Intake & Output 09/23/22 09/24/22 09/24/22 18:59 06:59 18:59 Intake Total 240 200 Output Total 600 Balance -360 200 Weight 73.936 kg Intake: Oral 240 200 Output: Urine 600 Other: Voiding Method Bedside Commode Diaper # Voids 1 # Bowel Movements 1 - Exam GENERAL EXAM: Alert, 69-year-old white male, comfortable in no apparent distress. He is very hard of hearing HEAD: Normocephalic and atraumatic EYES: Normal reaction of pupils, equal size. NOSE: Clear with pink turbinates. THROAT: No erythema or exudates. NECK: No masses, no JVD. CHEST: No chest wall deformity. LUNGS: Lung sounds are mostly clear on the right side, with reduced aeration of the left. no crackles, wheeze, rhonchi or dullness. 2 L nasal cannula. No conversational dyspnea or accessory muscle use.. CVS: S1 and S2 normal with a grade 2/6 systolic ejection murmur, regular rhythm. No other extra heart sounds ABDOMEN: No hepatosplenomegaly, active bowel sounds, no guarding or rigidity. SPINE: No scoliosis or deformity SKIN: No rashes CENTRAL NERVOUS SYSTEM: No focal deficits, tone is normal in all 4 extremities. EXTREMITIES: There is bilateral 2+ pitting edema of the left lower extremity. Left lower leg incisional site is approximated and clean. No clubbing, or cyanosis. Peripheral pulses are intact. - Labs CBC & Chem 7: 09/24/22 06:30 09/24/22 06:30 Labs: Abnormal Lab Results - Last 24 Hours (Table) 09/24/22 09/24/22 Range/Units 06:30 06:30 WBC 17.59 H (4.50-10.00) X 10*3/uL RBC 3.65 L (4.40-5.60) X 10*6/uL Hgb 8.6 L (13.0-17.0) g/dL Hct 28.6 L (39.6-50.0) % MCV 78.4 L (80.0-97.0) fL MCH 23.6 L (27.0-32.0) pg MCHC 30.1 L (32.0-37.0) g/dL RDW 25.1 H (11.5-14.5) % Immature Gran # 0.18 H (0.00-0.04) X 10*3/uL Neutrophils # 11.34 H (1.80-7.70) X 10*3/uL Monocytes # 4.26 H (0.20-1.00) X 10*3/uL Potassium 2.8 L (3.5-5.5) mmol/L Chloride 94 L (96-109) mmol/L Carbon Dioxide 32.1 H (20.0-27.5) mmol/L BUN 27.4 H (9.0-27.0) mg/dL Est GFR (CKD-EPI)AfAm 57.9 L (60.0-200.0) Est GFR (CKD-EPI)NonAf 49.9 L (60.0-200.0) BUN/Creatinine Ratio 20.30 H (12.00-20.00) Ratio Calcium 5.1 L* (8.7-10.3) mg/dL Magnesium 1.0 L (1.5-2.4) mg/dL Total Bilirubin 1.50 H (0.30-1.20) mg/dL AST 49 H (14-35) U/L ALT 51 H (10-49) U/L Alkaline Phosphatase 130 H (41-126) U/L Total Protein 4.9 L (6.2-8.2) g/dL Albumin 2.8 L (3.8-4.9) g/dL Albumin/Globulin Ratio 1.35 L (1.60-3.17) g/dL Assessment and Plan Assessment: History of recurrent falls Questionable right sided pneumonia involving the right upper lobe as CAT scan of the neck has shown some limited groundglass changes in the right upper lobe area, consider atypical pneumonia. The patient remains on 3 L of oxygen by nasal cannula. Patient's chest CT without contrast done yesterday showed scattered groundglass opacities throughout the right lungs which were improved compared to 2020 and could represent atypical infection versus scaring. Leukocytosis Left pneumonectomy with complete evacuation of the left lung and volume loss Acute kidney injury and the creatinine is down to 1.4, renal function is improving. History of pacemaker implantation for tachybradycardia syndrome. History of hypertension History of hypothyroidism History of non-small cell lung cancer and previous left-sided pneumonectomy in 2008 Ex-smoker Previous history of a Left lower extremity hematoma being addressed by orthopedics, patient is status post evacuation of hematoma on 08/22/2022. Left hip trauma and intramuscular hemorrhage, history of Plan Patient's medications, labs, chest CT were reviewed Continue Rocephin and Zithromax Contrast CT of the chest was noted Procalcitonin level is pending, we will manage antibiotics accordingly continue supplemental oxygen to maintain oxygen saturation of 92% or greater. Currently on 2 L/m nasal cannula oxygen 100%, and this can be weaned down. Replace electrolytes I would suggest reconsidering the use of Eliquis as the patient has history of recurrent falls and will be at high risk of bleeding in the future. We will continue to follow I have personally seen and examined the patient, performed the documentation and the assessment and plan as written. Number of minutes spent on the visit:10 This is a joint evaluation that was done along with the nurse practitioner. The patient is post pneumonectomy on the left. The patient has scattered groundglass pulmonary infiltrates on the right. Note that the patient has an extensive pulmonary infiltration and diffuse groundglass changes on earlier CAT scan back in December 2020. Comparing the CAT scans, there is significant clinical improvement with incomplete resolution. Nevertheless, exact etiology behind his pulmonary infiltrates is not known. Consider chronic infectious etiologies. Consider postpneumonic changes. For now, because of an acute pneumonia is still a viable option as the patient significant leukocytosis and a white cell count was high as 27 and currently dropped down to 17. The pro-calcitonin level is pending for now. Covid 19 testing was negative. The vital screening was negative. We'll continue the current antibiotic coverage and the patient is on Rocephin and will continue Zithromax for now 500 mg by mouth daily. May need a bronchoscopy if subsequent chest x-ray shows persistent groundglass pulmonary changes. Patient is currently on 2 L of oxygen by nasal cannula with pulse ox of 97%. This evaluation was done in more than 20 minutes. CAT scan of the chest. Time with Patient: Less than 30
[2022-09-24] MEDS: traZODone HCL 100 MG TAB PO SCH (20:04)
[2022-09-24] MEDS: CALCIUM CARBONATE 500 MG CHEWABLE PO SCH (20:04)
[2022-09-24] MEDS: ATORVASTATIN 80 MG TAB PO SCH (20:04)
[2022-09-24] MEDS: POTASSIUM CHLORIDE ER 20 MEQ TAB.ER PO SCH (20:04)
[2022-09-25] MEDS: LEVOTHYROXINE 88 MCG TAB PO SCH (06:49)
--- NOTE | 2022-09-25 08:13 | XR ---
EXAMINATION TYPE: XR chest 1V portable DATE OF EXAM: 09/25/2022 COMPARISON: 09/22/2022 INDICATION: Pneumonia TECHNIQUE: Single frontal view of the chest is obtained. FINDINGS: The heart size is indistinct. The pulmonary vasculature is normal. No suspicious infiltrate within the right lung is evident. Previous right lower lobe infiltrate has r esolved. Lung opacification and left hilar surgical clips are unchanged. Pacemaker overlies left chest. IMPRESSION: 1. Previous right lower lobe infiltrate has resolved.
[2022-09-25] MEDS: PANTOPRAZOLE 40 MG TABLET PO SCH (09:12)
[2022-09-25] MEDS: POTASSIUM CHLORIDE ER 20 MEQ TAB.ER PO SCH ×2 (09:13→21:14)
[2022-09-25] MEDS: CALCIUM CARBONATE 500 MG CHEWABLE PO SCH ×2 (09:13→21:13)
[2022-09-25] MEDS: METOPROLOL SUCCINATE (ER) 100 MG TAB.ER.24H PO SCH (09:13)
[2022-09-25] MEDS: APIXABAN 5 MG TAB PO SCH ×2 (09:13→21:13)
[2022-09-25] MEDS: DAPAGLIFLOZIN PROPANEDIOL 5 MG TABLET PO SCH (09:13)
--- NOTE | 2022-09-25 09:37 | P.PN ---
Subjective Progress Note Date: 09/25/22 HISTORY OF PRESENTING ILLNESS This is a 77-year-old male patient of Dr. 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 We have been asked to evaluate the patient for syncope. Patient had a recent hospitalization in August status post incision and drainage of the left leg hematoma and also hypovolemic shock due to acute blood loss. Patient was seen at that time by cardiology for chest pain likely related to the hypovolemic shock and acute blood loss. He was transfused 2 units of packed RBCs. Patient presented to the emergency room following a fall unclear if there was loss of consciousness. Patient had no lightheadedness or dizziness prior to the fall. No palpitations, no chest pain. EMS reported the patient was reaching for something and lost his balance and fell. He did hit his forehead on the ground but no other injuries. Patient is seen today in the emergency center. He has been resumed on his home cardiac medications. His vital signs have been stable. EKG ventricularly paced rhythm Chest x-ray: No acute pulmonary disease. Repeat Chest x-ray reveals no significant change. Left lung with left-sided v olume loss. No new right-sided pulmonary infiltrate. CAT scan of the brain and cervical spine revealed no acute intracranial process. Nonspecific white matter changes likely chronic small vessel ischemic disease. No evidence of cervical spine fracture. Mild to moderate multilevel degenerative disc disease. Scattered groundglass opacities within the visualized right upper lung concerning for atypical viral pneumonia. 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 INR 1.2. Sodium 139, potassium 3.6, BUN 55 creatinine 1.8. Calcium 5.1. Troponin 0.018 Home cardiac medications: Eliquis 5 mg twice daily, atorvastatin 80 mg at bedtime, Bumex 2 mg daily, losartan 25 mg at bedtime, metolazone 2.5 mg daily, Toprol-XL 100 mg daily, patient also on Jardiance Echocardiogram 08/24/2022 revealed normal ventricular systolic function, mild mitral regurgitation, limited study. He feels a need for care here 09/23 Patient is seen today in follow-up. Blood pressure is on the soft side and 101/50. Orthostatic vital signs were negative. Patient denies having any symptoms today. No lightheadedness or dizziness. No chest pain or shortness of breath. Influenza A, influenza B, RSV and Covid 19 not detected. Echocardiogram is pending. 09/24 Patient underwent CAT scan of the chest which revealed scattered groundglass opacities throughout the right lung which have improved from 2020 and could represent new atypical infection versus chronic scarring. Posttreatment changes suspected removal of the left lung. There is small fluid collection within the pleural space with some irregular appearance more superoinferiorly and posteriorly. Scattered debris within the fluid. Consider MRI. Echocardiogram reveals normal LV function. [id number] tricuspid regurgitation. Moderate to severe mitral regurgitation. Patient states his breathing status is stable today. He denies shortness of breath. He denies any diarrhea. His blood pressures have continued to be soft. He will did have a fluid bolus last evening. Orthostatic showed a change from systolic of 95 supine to a systolic of 81 with standing. WBC 16.5, hemoglobin 8.6, platelet count 216. Chemistry panel not reported. 09/25 Patient is seen today sitting up and recliner. He was started on midodrine yesterday. His blood pressure has been improved and this morning at 125/67. Heart rate in the 70s and 80s, afebrile, pulse ox 97% on room air. Repeat blood work ordered for today is pending. PHYSICAL EXAMINATION Vitals reviewed CONSTITUTIONAL: No apparent distress. HEENT: Head is normocephalic. Pupils are equal, round. Sclerae anicteric. Mucous membranes of the mouth are moist. Significant hearing loss noted. CHEST EXAMINATION: Diminished breath sounds. No chest wall tenderness is noted on palpation or with deep breathing. HEART EXAMINATION: Regular rate and rhythm. S1, S2 heard. Systolic ejection murmur at apex, no gallops or rub. EXTREMITIES: 2+ peripheral pulses, no lower extremity edema and no calf tenderness. SKIN: Warm, dry NEUROLOGIC EXAMINATION: Patient is awake, alert and oriented x3. ASSESSMENT Presyncope Acute kidney injury Pneumonia Recent left leg hematoma status post evacuation 08/22 History of tachy-arabella syndrome and syncope status post pacemaker implantation in 07/2020 Paroxysmal atrial fibrillation on Eliquis currently ventricularly paced History of hypertension Dyslipidemia Former tobacco use Former alcohol use Non-small cell lung cancer in 2008 status post left pneumonectomy History of hypothyroidism PLAN Resume patient on his home cardiac medications Continue to hold losartan for now Continue patient on midodrine 5 mg scheduled at 6 AM, noon and 6 PM. Plan to continue this until blood pressure is improved. Cardiology we will sign off and follow on an as-needed basis. Please reconsult for any new concerns. Nurse practitioner note has been reviewed, I agree with the documented findings and plan of care. Patient was seen and examined. Objective - Vital Signs Vital signs: Vital Signs Temp 97.6 F 09/25/22 07:10 Pulse 86 09/25/22 07:10 Resp 16 09/25/22 07:10 BP 125/67 09/25/22 07:10 Pulse Ox 97 09/25/22 07:10 FiO2 Intake & Output 09/24/22 09/25/22 09/25/22 18:59 06:59 18:59 Intake Total 360 Output Total 1250 Balance -890 Intake: Oral 360 Output: Urine 1250 Other: Voiding Method Bedside Commode Bedside Commode Bedside Commode Diaper Diaper Diaper # Bowel Movements 1 - Labs CBC & Chem 7: 09/24/22 06:30 09/24/22 06:30 Labs: Abnormal Lab Results - Last 24 Hours (Table) 09/24/22 09/24/22 Range/Units 06:30 06:30 WBC 17.59 H (4.50-10.00) X 10*3/uL RBC 3.65 L (4.40-5.60) X 10*6/uL Hgb 8.6 L (13.0-17.0) g/dL Hct 28.6 L (39.6-50.0) % MCV 78.4 L (80.0-97.0) fL MCH 23.6 L (27.0-32.0) pg MCHC 30.1 L (32.0-37.0) g/dL RDW 25.1 H (11.5-14.5) % Immature Gran # 0.18 H (0.00-0.04) X 10*3/uL Neutrophils # 11.34 H (1.80-7.70) X 10*3/uL Monocytes # 4.26 H (0.20-1.00) X 10*3/uL Potassium 2.8 L (3.5-5.5) mmol/L Chloride 94 L (96-109) mmol/L Carbon Dioxide 32.1 H (20.0-27.5) mmol/L BUN 27.4 H (9.0-27.0) mg/dL Est GFR (CKD-EPI)AfAm 57.9 L (60.0-200.0) Est GFR (CKD-EPI)NonAf 49.9 L (60.0-200.0) BUN/Creatinine Ratio 20.30 H (12.00-20.00) Ratio Calcium 5.1 L* (8.7-10.3) mg/dL Magnesium 1.0 L (1.5-2.4) mg/dL Total Bilirubin 1.50 H (0.30-1.20) mg/dL AST 49 H (14-35) U/L ALT 51 H (10-49) U/L Alkaline Phosphatase 130 H (41-126) U/L Total Protein 4.9 L (6.2-8.2) g/dL Albumin 2.8 L (3.8-4.9) g/dL Albumin/Globulin Ratio 1.35 L (1.60-3.17) g/dL
[2022-09-25] MEDS: AZITHROMYCIN 500 MG in SODIUM CHLORIDE 0.9% 250 ML IVPB SCH (09:48)
[2022-09-25 09:51] LABS: Anisocytosis Moderate; HCT 27.6 % (39.0-53.0); HGB 8.7 gm/dL (13.0-17.5); Hypochromasia Slight; MCH 24.6 pg (25.0-35.0); MCHC 31.7 g/dL (31.0-37.0); MCV 77.6 fL (80.0-100.0); Mean Platelet Volume 9.9; Microcytosis Moderate; Platelet Count 218 k/uL (150-450); RBC 3.55 m/uL (4.30-5.90)
[2022-09-25] MEDS: MIDODRINE 5 MG TAB PO SCH ×3 (09:56→18:01)
[2022-09-25] MEDS ORDERED: Magnesium Replacement Protocol 1 EACH MISC MISCELLANE PRN (14:15)
--- NOTE | 2022-09-25 14:17 | P.PN ---
Subjective Progress Note Date: 09/25/22 HISTORY OF PRESENT ILLNESS: This is a 77-year-old male patient of [facility] with past medical history of non-small cell lung cancer diagnosed in 2008 status post lobectomy, remote history of tobacco use, remote history of alcohol abuse, alcoholic peripheral neuropathy, hypertension, coronary artery disease, paroxysmal atrial fibrillation on eliquis, history of tachybradycardia syndrome status post pacemaker implantation. Patient had a recent hospitalization in August for left leg hematoma status post I&D with hypovolemic shock due to acute blood loss. Patient was transfused 2 units of packed RBCs. Patient was stabilized and discharged to [facility] for subacute rehab. Patient has essentially been discharged to his home. Patient had a fall unclear if there was loss of consciousness. Patient had no lightheadedness or dizziness prior to the fall. No palpitations, no chest pain. EMS reported the patient was reaching for something and lost his balance and fell. He did hit his forehead on the ground but no other injuries. Patient is seen today in the emergency center waiting for a bed on the [facility] floor. His vital signs were found to be stable. EKG ventricularly paced rhythm. Chest x-ray: No acute pulmonary disease. Repeat Chest x-ray reveals no significant change. Left lung with left-sided volume loss. No new right-sided pulmonary infiltrate. CAT scan of the brain and cervical spine revealed no acute intracranial process. Nonspecific white matter changes likely chronic small vessel ischemic disease. No evidence of cervical spine fracture. Mild to moderate multilevel degenerative disc disease. Scattered groundglass opacities within the visualized right upper lung concerning for atypical viral pneumonia. 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 Pelvic x-ray no acute findings. WBC 21, hemoglobin 9.1, platelet count 220. INR 1.2. Sodium 139, potassium 3.6, BUN 55 creatinine 1.8. Calcium 5.1. Troponin 0.018 09/23: Patient has been reevaluated by cardiology and blood pressure this morning was soft 101/50 and losartan was placed on hold. Yesterday testing was done for influenza A, influenza B, RSV, Covid 19 BACK not detected. This morning, patient denies having any lightheadedness or dizziness, no chest pain or shortness of breath. Orthostatic vital signs obtained yesterday were negative. 09/24: Patient underwent CAT scan of the chest which revealed scattered groundglass opacities throughout the right lung which have improved from 2020 and could represent new atypical infection versus chronic scarring. Posttreatment changes suspected removal of the left lung. There is small fluid collection within the pleural space with some irregular appearance more superoinferiorly and posteriorly. Scattered debris within the fluid. Consider MRI. Echocardiogram reveals normal LV function. [id number] tricuspid regurgitation. Moderate to severe mitral regurgitation. Patient states his breathing status is stable today. He denies shortness of breath. He denies any diarrhea. His blood pressures have continued to be soft. He will did have a fluid bolus last evening. Orthostatic showed a change from systolic of 95 supine to a systolic of 81 with standing. WBC 16.5, hemoglobin 8.6, platelet count 216. Sodium 140, potassium 2.8 and will be replaced, chloride 94, CO2 32, BUN 27 creatinine 1.4. Calcium 5.1. Magnesium 1.0. Total bilirubin 1.5, AST 49, ALT 51, alkaline phosphatase 130. A repeat coronavirus PCR not detected. Magnesium will also be replaced. Cardiology has started the patient on midodrine 5 mg 3 times daily Insurance authorization process to be started in anticipation of discharge on Wednesday to [facility] for subacute rehab. 09/25: Patient is found sitting up in recliner. He denies any new concerns. He has been seen by cardiology with recommendations to continue midodrine until blood pressure recovers most likely due to pneumonia and patient may eventually be able to resume losartan. Patient denies having any chest pain or shortness of breath today. Chemistry report remains pending for today. WBC 15, hemoglobin 8.7. Magnesium is 1.4 and will be replaced with 2 g IV piggyback. REVIEW OF SYSTEMS: Constitutional: No documented fever, no chills, no night sweats. No weight change. No weakness, fatigue or lethargy. No daytime sleepiness. HEENT: No headache. No blurred vision or double vision, no loss of vision. very hard of Hearing, no ringing in the ears, no dizziness. No nasal drainage or congestion. No epistaxis. No sore throat. Lungs: No shortness of breath, no cough, no sputum production. no wheezing. Cardiovascular: No chest pain, positive for lower extremity edema. No palpitations. No paroxysmal nocturnal dyspnea. No orthopnea. No lightheadedness or dizziness. Reports syncopal episode versus mechanical fall. Abdominal: Reports no abdominal pain. No nausea, vomiting. Denies diarrhea. No constipation. No bloody or tarry stools reports loss of appetite. Genitourinary: No dysuria, increased frequency, urgency. No urinary retention. Musculoskeletal: positive for myalgias. positive for right muscle weakness, positive for gait dysfunction, positive for frequent falls, positive for back pain and neck pain, reports pelvic discomfort Integumentary: No wounds, no lesions. No rash or pruritus. Neurologic: No aphasia. No facial droop. No change in mentation. No head injury. No headache. No paralysis. No paresthesia. Psychiatric: positive for depression, positive for anxiety. No mood swings. Endocrine: No abnormal blood sugars. No weight change. PHYSICAL EXAMINATION: General: This is a 77-year-old male resting in bed in minimal distress HEENT: Head is atraumatic, normocephalic, pupils were equal round reactive to light and recommendation, extraocular muscle movement were intact, sclera nonicteric, conjunctivae were pale, mucous membranes of the mouth are somewhat d ry. Neck: Supple, no JVP, normal carotid upstroke bilaterally, no lymphadenopathy. Chest: Decreased breath sounds at the bases, no wheezes, no chest wall tenderness, no intercostal retractions. Heart: First heart sound is normal, second heart sounds normal, systolic ejection murmur 2/6 located at the left sternal border. Abdomen: Soft, nontender, nondistended, positive bowel sounds. Extremities: There is no edema no calf tenderness DP +1 bilaterally Neurologic examination: Patient is awake alert and oriented 3, cranial nerves II-12 appear grossly intact, muscle power were 4 out of 5 in upper extremities and 2 out of 5 in bilateral lower extremities, deep tendon reflexes normal bilaterally. ASSESSMENT AND PLAN: 1. Syncopal episode versus mechanical fall most likely due to hypotension. Cardiology consult appreciated. Patient has been started on midodrine 5 mg 3 times daily. 2. Acute kidney injury. Plan to hold Bumex and metolazone for now and recheck renal function in the morning. 3. Possible pneumonia. Consult with pulmonary medicine appreciated. Patient continued on Rocephin and Zithromax. Legionella antigen was negative. Influenza A, influenza B, RSV and Covid 19 negative. 4. Recent hospitalization for left leg hematoma status post I&D, stable. 5. Leukocytosis with microcytosis and from cytopenia. Patient was recently evaluated by oncology, MGUS workup was negative and patient to have a follow-up in the office. 6. History of non-small cell lung cancer in 2009 status post left pneumonectomy. 7. Hypertension and hypertensive cardiovascular disease. Discontinue losartan 25 mg at bedtime per cardiology and continue patient on Toprol-XL 100 mg daily 8. Chronic diastolic heart failure. Hold Bumex 2 mg po daily and Metoprolol 100 mg po daily. 9. Paroxysmal atrial fibrillation. Continue patient on eliquis and we will continue with Metoprolol ER 100 mg po daily. 10. History of sick sinus syndrome status post pacemaker implantation, stable. 11. Alcoholic peripheral neuropathy. stable. 12. Hypothyroidism. Continue levothyroxine 88 g daily. 13. Hypomagnesemia. Continue to monitor and replace as appropriate. 14. GI prophylaxis. Protonix 40 mg daily. 15. DVT prophylaxis. Continue patient on eliquis. Patient is full code. Discharge planning: [facility] Impression and plan of care have been directed as dictated by the signing physician. Jada Burr nurse practitioner acting as scribe for signing physician. Objective - Vital Signs Vital signs: Vital Signs Temp 97.6 F 09/25/22 07:10 Pulse 86 09/25/22 07:10 Resp 16 09/25/22 07:10 BP 125/67 09/25/22 07:10 Pulse Ox 97 09/25/22 07:10 FiO2 Intake & Output 09/24/22 09/25/22 09/25/22 18:59 06:59 18:59 Intake Total 360 Output Total 1250 Balance -890 Intake: Oral 360 Output: Urine 1250 Other: Voiding Method Bedside Commode Bedside Commode Bedside Commode Diaper Diaper Diaper # Bowel Movements 1 - Labs CBC & Chem 7: 09/25/22 06:55 09/24/22 06:30 Labs: Abnormal Lab Results - Last 24 Hours (Table) 09/24/22 09/24/22 Range/Units 06:30 06:30 WBC 17.59 H (4.50-10.00) X 10*3/uL RBC 3.65 L (4.40-5.60) X 10*6/uL Hgb 8.6 L (13.0-17.0) g/dL Hct 28.6 L (39.6-50.0) % MCV 78.4 L (80.0-97.0) fL MCH 23.6 L (27.0-32.0) pg MCHC 30.1 L (32.0-37.0) g/dL RDW 25.1 H (11.5-14.5) % Immature Gran # 0.18 H (0.00-0.04) X 10*3/uL Neutrophils # 11.34 H (1.80-7.70) X 10*3/uL Monocytes # 4.26 H (0.20-1.00) X 10*3/uL Potassium 2.8 L (3.5-5.5) mmol/L Chloride 94 L (96-109) mmol/L Carbon Dioxide 32.1 H (20.0-27.5) mmol/L BUN 27.4 H (9.0-27.0) mg/dL Est GFR (CKD-EPI)AfAm 57.9 L (60.0-200.0) Est GFR (CKD-EPI)NonAf 49.9 L (60.0-200.0) BUN/Creatinine Ratio 20.30 H (12.00-20.00) Ratio Calcium 5.1 L* (8.7-10.3) mg/dL Magnesium 1.0 L (1.5-2.4) mg/dL Total Bilirubin 1.50 H (0.30-1.20) mg/dL AST 49 H (14-35) U/L ALT 51 H (10-49) U/L Alkaline Phosphatase 130 H (41-126) U/L Total Protein 4.9 L (6.2-8.2) g/dL Albumin 2.8 L (3.8-4.9) g/dL Albumin/Globulin Ratio 1.35 L (1.60-3.17) g/dL
[2022-09-25] MEDS: MAGNESIUM SULFATE-D5W PMX 1 GM in DEXTROSE/WATER 1 100ML.BAG IVPB SCH ×2 (14:50→16:01)
--- NOTE | 2022-09-25 15:37 | P.PN ---
Subjective Progress Note Date: 09/25/22 A pleasant 77-year-old male patient came into the emergency department after he fell. He has history of recurrent falls. He is also hard of hearing. The patient has no good recollection of the events that led him to fall. He did hit his forehead on the ground. Based on that, the patient was brought into the emergency. The chest x-ray shows complete opacification of the left lung related to previous pneumonectomy. 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 No coffee no sputum production. No worsening shortness of breath. Is currently on 2 L of oxygen by nasal cannula. Is hemodynamically stable. He has a white cell count of 21 his white cell count has been chronically elevated. His hemoglobin is at 9.1 with a platelet count of 220. Normal coagulation profile. Creatinine is 1.8 with a BUN of 55 and a sodium level is at 139. Troponins are 0.018. Legionella urine antigen was negative. The patient has had a CAT scan of the brain that showed no acute intracranial process. No evidence of any cervical fracture. There is mild to moderate multilevel degenerative disc disease. Limited scattered groundglass changes in the right upper lobe. Today's evaluation of 09/23/2022, the patient remains on 3 L of oxygen by nasal cannula. No major respiratory distress. No cough or sputum production. No cardiac rhythm was done and the patient is a preserved LV function. No significant valvular abnormalities. The patient presented to the hospital because of a presyncope. The patient also had an acute kidney injury. He has a pacemaker in place for previous tachybradycardia syndrome. His white cell count remains elevated at 27, hemoglobin stable at 9.3. BUN is at 27 and a creatinine is up to 1.5. Sodium is at 144. Calcium level is low at 5.7 and the troponins 0.01. Stool for C. diff has been negative. I'm seeing this patient in follow-up today 09/24/2022 on the general medical floor. Patient is currently resting in bed, 2 L nasal cannula, in no acute distress. Patient is oxygenating at 100%. Patient denies any difficulty breathing. Patient's chest CT without contrast done yesterday showed scattered groundglass opacities throughout the right lungs which were improved compared to 2020 and could represent atypical infection versus scarring. Patient also has surgical left pneumonectomy. Patient remains on a course of Rocephin. Patient's CBC from today shows an improvement in the patient's leukocytosis down to 18, hemoglobin stable at 8.6, hematocrit 28.6, platelets 216,000. Patient does have a procalcitonin level pending. Patient's BMP from today shows a sodium of 140, potassium 2.8, chloride 94, serum CO2 32, B1 27, creatinine 1.4, glucose 81. Calcium was also low. Patient's electrolytes have been replaced. LFTs are mildly elevated. Patient was negative for COVID-19, RSV, influenza. No maintenance fluids infusing. Vital signs are stable. On 09/25/2022, the patient is on room air oxygen. No new complaints. His pro calcitonin level is dropping. The patient remains on Zithromax. No other complaints otherwise for now. No cough. No sputum production. Repeat chest x- ray was done today and previous history of right lower lobe pulmonary infiltrates as well as improving. His post pneumonectomy on the left. Objective - Vital Signs Vital signs: Vital Signs Temp 97.3 F L 09/25/22 11:37 Pulse 82 09/25/22 12:56 Resp 16 09/25/22 11:37 BP 105/65 09/25/22 12:56 Pulse Ox 100 09/25/22 11:37 FiO2 Intake & Output 09/24/22 09/25/22 09/25/22 18:59 06:59 18:59 Intake Total 360 Output Total 1250 Balance -890 Weight 73.936 kg Intake: Oral 360 Output: Urine 1250 Other: Voiding Method Bedside Commode Bedside Commode Bedside Commode Diaper Diaper Diaper # Bowel Movements 1 - Exam GENERAL EXAM: Alert, 69-year-old white male, comfortable in no apparent distress. He is very hard of hearing, currently on room air oxygen HEAD: Normocephalic and atraumatic EYES: Normal reaction of pupils, equal size. NOSE: Clear with pink turbinates. THROAT: No erythema or exudates. NECK: No masses, no JVD. CHEST: No chest wall deformity. LUNGS: Lung sounds are mostly clear on the right side, with reduced aeration of the left. no crackles, wheeze, rhonchi or dullness. . No conversational dyspnea or accessory muscle use.. CVS: S1 and S2 normal with a grade 2/6 systolic ejection murmur, regular rhythm. No other extra heart sounds ABDOMEN: No hepatosplenomegaly, active bowel sounds, no guarding or rigidity. SPINE: No scoliosis or deformity SKIN: No rashes CENTRAL NERVOUS SYSTEM: No focal deficits, tone is normal in all 4 extremities. EXTREMITIES: There is bilateral 2+ pitting edema of the left lower extremity. Left lower leg incisional site is approximated and clean. No clubbing, or cyanosis. Peripheral pulses are intact. - Labs CBC & Chem 7: 09/25/22 06:55 09/24/22 06:30 Labs: Abnormal Lab Results - Last 24 Hours (Table) 09/25/22 09/25/22 Range/Units 06:55 06:55 WBC 15.0 H (3.8-10.6) k/uL RBC 3.55 L (4.30-5.90) m/uL Hgb 8.7 L (13.0-17.5) gm/dL Hct 27.6 L (39.0-53.0) % MCV 77.6 L (80.0-100.0) fL MCH 24.6 L (25.0-35.0) pg RDW 22.0 H (11.5-15.5) % Magnesium 1.4 L (1.5-2.4) mg/dL Assessment and Plan Assessment: History of recurrent falls Questionable right sided pneumonia involving the right upper lobe as CAT scan of the neck has shown some limited groundglass changes in the right upper lobe area, consider atypical pneumonia. The patient remains on 3 L of oxygen by nasal cannula. Patient's chest CT without contrast done yesterday showed scattered groundglass opacities throughout the right lungs which were improved compared to 2020 and could represent atypical infection versus scaring. Leukocytosis Left pneumonectomy with complete evacuation of the left lung and volume loss Acute kidney injury and the creatinine is down to 1.4, renal function is improving. History of pacemaker implantation for tachybradycardia syndrome. History of hypertension History of hypothyroidism History of non-small cell lung cancer and previous left-sided pneumonectomy in 2008 Ex-smoker Previous history of a Left lower extremity hematoma being addressed by orthopedics, patient is status post evacuation of hematoma on 08/22/2022. Left hip trauma and intramuscular hemorrhage, history of Plan . Clinically improving Chest x-ray is also improving Pro calcitonin level is improving Currently on room air oxygen Consider discharging this patient home on Zithromax without patient follow-up. Pulmonary and critical care services will sign off
[2022-09-25 16:40] LABS: Albumin/Globulin Ratio 1.34 (1.60-3.17); BUN/Creat Ratio 19.82 Ratio (12.00-20.00); Blood Urea Nitrogen 21.6 mg/dL (9.0-27.0); Calcium 5.1 mg/dL (8.7-10.3); Carbon Dioxide 29.9 mmol/L (20.0-27.5); Globulin 2.2 g/dL (1.6-3.3); Non-African American GFR(CKD) 64.7 (60.0-200.0); Potassium 3.5 mmol/L (3.5-5.5); Total Bilirubin 0.9 mg/dL (0.30-1.20); Total Protein 5.2 g/dL (6.2-8.2)
[2022-09-25] MEDS: ATORVASTATIN 80 MG TAB PO SCH (21:13)
[2022-09-25] MEDS: traZODone HCL 100 MG TAB PO SCH (21:14)
[2022-09-26] MEDS: LEVOTHYROXINE 88 MCG TAB PO SCH (06:41)
[2022-09-26] MEDS: AZITHROMYCIN 500 MG in SODIUM CHLORIDE 0.9% 250 ML IVPB SCH (07:23)
[2022-09-26] MEDS: APIXABAN 5 MG TAB PO SCH ×2 (07:24→21:58)
[2022-09-26] MEDS: PANTOPRAZOLE 40 MG TABLET PO SCH (07:24)
[2022-09-26] MEDS: CALCIUM CARBONATE 500 MG CHEWABLE PO SCH ×2 (07:24→21:58)
[2022-09-26] MEDS: POTASSIUM CHLORIDE ER 20 MEQ TAB.ER PO SCH ×2 (07:24→21:58)
[2022-09-26] MEDS: DAPAGLIFLOZIN PROPANEDIOL 5 MG TABLET PO SCH (07:25)
[2022-09-26] MEDS: MIDODRINE 5 MG TAB PO SCH ×3 (07:27→17:11)
[2022-09-26 09:28] LABS: HCT 26.9 % (39.6-50.0); HGB 7.9 g/dL (13.0-17.0); MCH 23.6 pg (27.0-32.0); MCHC 29.4 g/dL (32.0-37.0); MCV 80.3 fL (80.0-97.0); Mean Platelet Volume 11.4 fL (9.5-12.2); NRBC Per 100 WBC 0 /100 WBCS (0.0-0.0); Platelet Count 216 X 10*3/uL (140-440); RBC 3.35 X 10*6/uL (4.40-5.60); RDW 25.1 % (11.5-14.5); WBC 17.18 X 10*3/uL (4.50-10.00)
[2022-09-26 09:47] LABS: African American GFR (CKD) 83.2 (60.0-200.0); Albumin/Globulin Ratio 1.36 (1.60-3.17); Anion Gap 9.7 mmol/L (10.00-18.00); BUN/Creat Ratio 17.8 Ratio (12.00-20.00); Blood Urea Nitrogen 17.8 mg/dL (9.0-27.0); Carbon Dioxide 30.3 mmol/L (20.0-27.5); Globulin 2.2 g/dL (1.6-3.3); Magnesium 1.6 mg/dL (1.5-2.4); Non-African American GFR(CKD) 71.8 (60.0-200.0); Potassium 4.2 mmol/L (3.5-5.5); Total Bilirubin 0.8 mg/dL (0.30-1.20); Total Protein 5.2 g/dL (6.2-8.2)
[2022-09-26] MEDS: MAGNESIUM SULFATE-D5W PMX 1 GM in DEXTROSE/WATER 1 100ML.BAG IVPB SCH ×2 (10:29→11:38)
[2022-09-26] MEDS: METOPROLOL SUCCINATE (ER) 100 MG TAB.ER.24H PO SCH (10:33)
[2022-09-26] MEDS ORDERED: CALCIUM GLUCONATE IN NACL 1 GM in SALINE 1 100ML.BAG IVPB ONE (11:00)
--- NOTE | 2022-09-26 16:47 | P.PN ---
Subjective Progress Note Date: 09/26/22 HISTORY OF PRESENTING ILLNESS This is a 77-year-old male patient of Dr. 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 We have been asked to evaluate the patient for syncope. Patient had a recent hospitalization in August status post incision and drainage of the left leg hematoma and also hypovolemic shock due to acute blood loss. Patient was seen at that time by cardiology for chest pain likely related to the hypovolemic shock and acute blood loss. He was transfused 2 units of packed RBCs. Patient presented to the emergency room following a fall unclear if there was loss of consciousness. Patient had no lightheadedness or dizziness prior to the fall. No palpitations, no chest pain. EMS reported the patient was reaching for something and lost his balance and fell. He did hit his forehead on the ground but no other injuries. Patient is seen today in the emergency center. He has been resumed on his home cardiac medications. His vital signs have been stable. EKG ventricularly paced rhythm Chest x-ray: No acute pulmonary disease. Repeat Chest x-ray reveals no significant change. Left lung with left-sided v olume loss. No new right-sided pulmonary infiltrate. CAT scan of the brain and cervical spine revealed no acute intracranial process. Nonspecific white matter changes likely chronic small vessel ischemic disease. No evidence of cervical spine fracture. Mild to moderate multilevel degenerative disc disease. Scattered groundglass opacities within the visualized right upper lung concerning for atypical viral pneumonia. 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 INR 1.2. Sodium 139, potassium 3.6, BUN 55 creatinine 1.8. Calcium 5.1. Troponin 0.018 Home cardiac medications: Eliquis 5 mg twice daily, atorvastatin 80 mg at bedtime, Bumex 2 mg daily, losartan 25 mg at bedtime, metolazone 2.5 mg daily, Toprol-XL 100 mg daily, patient also on Jardiance Echocardiogram 08/24/2022 revealed normal ventricular systolic function, mild mitral regurgitation, limited study. He feels a need for care here 09/23 Patient is seen today in follow-up. Blood pressure is on the soft side and 101/50. Orthostatic vital signs were negative. Patient denies having any symptoms today. No lightheadedness or dizziness. No chest pain or shortness of breath. Influenza A, influenza B, RSV and Covid 19 not detected. Echocardiogram is pending. 09/24 Patient underwent CAT scan of the chest which revealed scattered groundglass opacities throughout the right lung which have improved from 2020 and could represent new atypical infection versus chronic scarring. Posttreatment changes suspected removal of the left lung. There is small fluid collection within the pleural space with some irregular appearance more superoinferiorly and posteriorly. Scattered debris within the fluid. Consider MRI. Echocardiogram reveals normal LV function. [id number] tricuspid regurgitation. Moderate to severe mitral regurgitation. Patient states his breathing status is stable today. He denies shortness of breath. He denies any diarrhea. His blood pressures have continued to be soft. He will did have a fluid bolus last evening. Orthostatic showed a change from systolic of 95 supine to a systolic of 81 with standing. WBC 16.5, hemoglobin 8.6, platelet count 216. Chemistry panel not reported. 09/25 Patient is seen today sitting up and recliner. He was started on midodrine yesterday. His blood pressure has been improved and this morning at 125/67. Heart rate in the 70s and 80s, afebrile, pulse ox 97% on room air. Repeat blood work ordered for today is pending. 09/26: Patient sitting up in a chair in no apparent distress, he denies any chest pain, he denies any shortness breath, he has no coughing, we are awaiting the prior authorization for extended care facility displacement patient will likely need to go to [facility], patient appears to be stable at this time his consult is greatly low however his albumin is below as well, patient will be given calcium gluconate 1 g IV piggyback 1, we'll continue with Aureliano carbonate 500 mg orally twice every day as well monitor the patient very closely 3 PHYSICAL EXAMINATION Vitals reviewed CONSTITUTIONAL: No apparent distress. HEENT: Head is normocephalic. Pupils are equal, round. Sclerae anicteric. Mucous membranes of the mouth are moist. Significant hearing loss noted. CHEST EXAMINATION: Diminished breath sounds. No chest wall tenderness is noted on palpation or with deep breathing. HEART EXAMINATION: Regular rate and rhythm. S1, S2 heard. Systolic ejection murmur at apex, no gallops or rub. EXTREMITIES: 2+ peripheral pulses, positive for lower extremity edema and no kane f tenderness. SKIN: Warm, dry NEUROLOGIC EXAMINATION: Patient is awake, alert and oriented x3, cranial nerves III-12 grossly intact, muscle power were 4 out of 5 in upper extremities and 3 out of 5 in bilateral lower extremities. ASSESSMENT 1. Presyncope. Likely related to orthostatic hypotension, patient was taken off losartan at this time, he was started on Midodrin 5 mg orally 3 times every day, continue with bilateral knee-high DUNCAN hose, monitor the patient very closely. 2. Acute kidney injury secondary to acute tubular necrosis due to aggressive diuresis and poor oral intake of fluid. Diuretics were discontinued, and his back to baseline. 3. Community acquired Pneumonia. Continue patient on Zithromax 500 mg IV piggyback every day for the next 3 days. 4. Recent left leg hematoma status post evacuation 08/22. Stable at this time. 5. History of tachy-arabella syndrome and syncope status post pacemaker implantation in 07/2020 6. Paroxysmal atrial fibrillation. Continue metoprolol ER 100 mg once every day, continue Eliquis 5 mg orally twice every day . 7. Hypertension. Has been recently hypertensive and due to orthostatic hypotension however he is maintained on metoprolol ER 100 mg orally once every day . 8. mixed hyperlipidemia. Continue atorvastatin 80 mg orally once every day. 9. Formertobacco use with COPD. Stable at this time. 10. Former alcohol use in remission now. . 11. Non-small cell lung cancer in 2008 status [place]. 12. Hypothyroidism. Continue Synthroid 88 g orally once every day. 13. Hypokalemia. Continue current replacement. 14. Hypomagnesemia status post placement. 15. Hypocalcemia. Patient will be given additional dose of calcium gluconate 1 g IV piggyback 1. Continue patient on calcium carbonate 500 mg orally twice every day. 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 on Wednesday to [facility] - Vital Signs Vital signs: Vital Signs Temp 97.8 F 09/26/22 07:09 Pulse 81 09/26/22 07:09 Resp 18 09/26/22 07:09 BP 122/57 09/26/22 07:09 Pulse Ox 97 09/26/22 07:09 FiO2 Intake & Output 09/25/22 09/26/22 09/26/22 18:59 06:59 18:59 Intake Total 900 Balance 900 Weight 73.936 kg Intake: Oral 900 Other: Voiding Method Bedside Commode Bedside Commode Bedside Commode Diaper Diaper Diaper # Voids 3 # Bowel Movements 1 1 - Labs CBC & Chem 7: 09/26/22 06:48 09/26/22 06:48 Labs: Abnormal Lab Results - Last 24 Hours (Table) 09/25/22 09/25/22 09/25/22 Range/Units 06:55 06:55 06:55 WBC 15.0 H (3.8-10.6) k/uL RBC 3.55 L (4.30-5.90) m/uL Hgb 8.7 L (13.0-17.5) gm/dL Hct 27.6 L (39.0-53.0) % MCV 77.6 L (80.0-100.0) fL MCH 24.6 L (25.0-35.0) pg RDW 22.0 H (11.5-15.5) % Carbon Dioxide 29.9 H (20.0-27.5) mmol/L Calcium 5.1 L* (8.7-10.3) mg/dL Magnesium 1.4 L (1.5-2.4) mg/dL AST 44 H (14-35) U/L Alkaline Phosphatase 136 H (41-126) U/L Total Protein 5.2 L (6.2-8.2) g/dL Albumin 3.0 L (3.8-4.9) g/dL Albumin/Globulin Ratio 1.34 L (1.60-3.17) g/dL
[2022-09-26] MEDS: traZODone HCL 100 MG TAB PO SCH (21:58)
[2022-09-26] MEDS: ATORVASTATIN 80 MG TAB PO SCH (21:58)
[2022-09-27] MEDS: MIDODRINE 5 MG TAB PO SCH ×3 (06:33→17:36)
[2022-09-27] MEDS: LEVOTHYROXINE 88 MCG TAB PO SCH (06:33)
[2022-09-27] MEDS: METOPROLOL SUCCINATE (ER) 100 MG TAB.ER.24H PO SCH (09:43)
[2022-09-27] MEDS: DAPAGLIFLOZIN PROPANEDIOL 5 MG TABLET PO SCH (09:43)
[2022-09-27] MEDS: POTASSIUM CHLORIDE ER 20 MEQ TAB.ER PO SCH (09:43)
[2022-09-27] MEDS: CALCIUM CARBONATE 500 MG CHEWABLE PO SCH ×3 (09:43→20:56)
[2022-09-27] MEDS: APIXABAN 5 MG TAB PO SCH ×2 (09:43→20:56)
[2022-09-27] MEDS: AZITHROMYCIN 500 MG in SODIUM CHLORIDE 0.9% 250 ML IVPB SCH (09:44)
[2022-09-27] MEDS: PANTOPRAZOLE 40 MG TABLET PO SCH (09:44)
[2022-09-27] MEDS: MAGNESIUM SULFATE-D5W PMX 1 GM in DEXTROSE/WATER 1 100ML.BAG IVPB SCH ×2 (11:36→12:45)
[2022-09-27] MEDS ORDERED: CALCIUM GLUCONATE IN NACL 2 GM in SALINE 1 100ML.BAG IVPB ONE (13:30)
--- NOTE | 2022-09-27 13:30 | P.PN ---
Subjective Progress Note Date: 09/27/22 HISTORY OF PRESENTING ILLNESS This is a 77-year-old male patient of Dr. 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 We have been asked to evaluate the patient for syncope. Patient had a recent hospitalization in August status post incision and drainage of the left leg hematoma and also hypovolemic shock due to acute blood loss. Patient was seen at that time by cardiology for chest pain likely related to the hypovolemic shock and acute blood loss. He was transfused 2 units of packed RBCs. Patient presented to the emergency room following a fall unclear if there was loss of consciousness. Patient had no lightheadedness or dizziness prior to the fall. No palpitations, no chest pain. EMS reported the patient was reaching for something and lost his balance and fell. He did hit his forehead on the ground but no other injuries. Patient is seen today in the emergency center. He has been resumed on his home cardiac medications. His vital signs have been stable. EKG ventricularly paced rhythm Chest x-ray: No acute pulmonary disease. Repeat Chest x-ray reveals no significant change. Left lung with left-sided v olume loss. No new right-sided pulmonary infiltrate. CAT scan of the brain and cervical spine revealed no acute intracranial process. Nonspecific white matter changes likely chronic small vessel ischemic disease. No evidence of cervical spine fracture. Mild to moderate multilevel degenerative disc disease. Scattered groundglass opacities within the visualized right upper lung concerning for atypical viral pneumonia. 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 INR 1.2. Sodium 139, potassium 3.6, BUN 55 creatinine 1.8. Calcium 5.1. Troponin 0.018 Home cardiac medications: Eliquis 5 mg twice daily, atorvastatin 80 mg at bedtime, Bumex 2 mg daily, losartan 25 mg at bedtime, metolazone 2.5 mg daily, Toprol-XL 100 mg daily, patient also on Jardiance Echocardiogram 08/24/2022 revealed normal ventricular systolic function, mild mitral regurgitation, limited study. He feels a need for care here 09/23 Patient is seen today in follow-up. Blood pressure is on the soft side and 101/50. Orthostatic vital signs were negative. Patient denies having any symptoms today. No lightheadedness or dizziness. No chest pain or shortness of breath. Influenza A, influenza B, RSV and Covid 19 not detected. Echocardiogram is pending. 09/24 Patient underwent CAT scan of the chest which revealed scattered groundglass opacities throughout the right lung which have improved from 2020 and could represent new atypical infection versus chronic scarring. Posttreatment changes suspected removal of the left lung. There is small fluid collection within the pleural space with some irregular appearance more superoinferiorly and posteriorly. Scattered debris within the fluid. Consider MRI. Echocardiogram reveals normal LV function. [id number] tricuspid regurgitation. Moderate to severe mitral regurgitation. Patient states his breathing status is stable today. He denies shortness of breath. He denies any diarrhea. His blood pressures have continued to be soft. He will did have a fluid bolus last evening. Orthostatic showed a change from systolic of 95 supine to a systolic of 81 with standing. WBC 16.5, hemoglobin 8.6, platelet count 216. Chemistry panel not reported. 09/25 Patient is seen today sitting up and recliner. He was started on midodrine yesterday. His blood pressure has been improved and this morning at 125/67. Heart rate in the 70s and 80s, afebrile, pulse ox 97% on room air. Repeat blood work ordered for today is pending. 09/26: Patient sitting up in a chair in no apparent distress, he denies any chest pain, he denies any shortness breath, he has no coughing, we are awaiting the prior authorization for extended care facility displacement patient will likely need to go to [facility], patient appears to be stable at this time his consult is greatly low however his albumin is below as well, patient will be given calcium gluconate 1 g IV piggyback 1, we'll continue with Aureliano carbonate 500 mg orally twice every day as well monitor the patient very closely 09/27: Patient sitting up in a chair in no apparent distress, denies any chest pain, shortness breath, he appears to be stable at this time, we are awaiting transfer to [facility] for the next 24 hours. PHYSICAL EXAMINATION Vitals reviewed CONSTITUTIONAL: No apparent distress. HEENT: Head is normocephalic. Pupils are equal, round. Sclerae anicteric. Mucous membranes of the mouth are moist. Significant hearing loss noted. CHEST EXAMINATION: Diminished breath sounds. No chest wall tenderness is noted on palpation or with deep breathing. HEART EXAMINATION: Regular rate and rhythm. S1, S2 heard. Systolic ejection murmur at apex, no gallops or rub. EXTREMITIES: 2+ peripheral pulses, positive for lower extremity edema and no calf tenderness. SKIN: Warm, dry NEUROLOGIC EXAMINATION: Patient is awake, alert and oriented x3, cranial nerves III-12 grossly intact, muscle power were 4 out of 5 in upper extremities and 3 out of 5 in bilateral lower extremities. ASSESSMENT 1. Presyncope. Likely related to orthostatic hypotension, patient was taken off losartan at this time, he was started on Midodrin 5 mg orally 3 times every day, continue with bilateral knee-high DUNCAN hose, monitor the patient very closely. 2. Acute kidney injury secondary to acute tubular necrosis due to aggressive diuresis and poor oral intake of fluid. Patient will be maintained on Farxiga 10 mg po daily 3. Community acquired Pneumonia. Just finished antibiotic. 4 . Recent left leg hematoma status post evacuation 08/22. Stable at this time. 5. History of tachy-arabella syndrome and syncope status post pacemaker implantation in 07/2020 6. Paroxysmal atrial fibrillation. Continue metoprolol ER 100 mg once every day, continue Eliquis 5 mg orally twice every day . 7. Hypertension and hypertensive cardiovascular disease. Has been recently hypertensive and due to orthostatic hypotension however he is maintained on metoprolol ER 100 mg orally once every day . 8. mixed hyperlipidemia. Continue atorvastatin 80 mg orally once every day. 9. Former tobacco use with COPD. Stable at this time. 10. Former alcohol use in remission now. . 11. Non-small cell lung cancer in 2008 status post left pneumonectomy in remission now. 12. Hypothyroidism. Continue Synthroid 88 g orally once every day. 13. Hypokalemia. Resolved discontinue oral potassium. 14. Hypomagnesemia status post placement. resolved. 15. Hypocalcemia. Patient will be given additional dose of calcium gluconate 2 g IV piggyback 1 and increase calcium carbonate 500 mg orally 3 times every day. 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
[2022-09-27] MEDS ORDERED: SODIUM FERRIC GLUCONAT-SUCROSE 125 MG in SODIUM CHLORIDE 0.9% 100 ML IVPB ONE (14:00)
[2022-09-27] MEDS: traZODone HCL 100 MG TAB PO SCH (20:56)
[2022-09-27] MEDS: ATORVASTATIN 80 MG TAB PO SCH (20:56)
[2022-09-28] MEDS: LEVOTHYROXINE 88 MCG TAB PO SCH (06:30)
[2022-09-28] MEDS: MIDODRINE 5 MG TAB PO SCH ×3 (06:30→17:13)
[2022-09-28 06:47] LABS: Ionized Calcium 3.3 mg/dL (4.5-5.3)
[2022-09-28] MEDS: METOPROLOL SUCCINATE (ER) 100 MG TAB.ER.24H PO SCH (08:57)
[2022-09-28] MEDS: CALCIUM CARBONATE 500 MG CHEWABLE PO SCH ×3 (08:57→22:10)
[2022-09-28] MEDS: PANTOPRAZOLE 40 MG TABLET PO SCH (08:57)
[2022-09-28] MEDS: DAPAGLIFLOZIN PROPANEDIOL 5 MG TABLET PO SCH (08:57)
[2022-09-28] MEDS: APIXABAN 5 MG TAB PO SCH ×2 (08:57→20:11)
[2022-09-28 09:02] LABS: Basophils # (A) 0.05 X 10*3/uL (0.00-0.10); Basophils % (A) 0.3 %; Eosinophils % (A) 0.5 %; HCT 28.6 % (39.6-50.0); Immature Grans, Automated 1.1 %; Lymphocytes # (A) 1.58 X 10*3/uL (0.90-5.00); Lymphocytes % (A) 8.3 %; MCH 23.5 pg (27.0-32.0); MCV 83.9 fL (80.0-97.0); Mean Platelet Volume 11.4 fL (9.5-12.2); Monocytes # (A) 3.92 X 10*3/uL (0.20-1.00); Monocytes % (A) 20.7 %; NRBC Per 100 WBC 0 /100 WBCS (0.0-0.0); Neutrophils # (A) 13.08 X 10*3/uL (1.80-7.70); Neutrophils % (A) 69.1 %; Platelet Count 225 X 10*3/uL (140-440); RBC 3.41 X 10*6/uL (4.40-5.60); RDW 25.2 % (11.5-14.5); WBC 18.94 X 10*3/uL (4.50-10.00)
[2022-09-28 09:31] LABS: Magnesium 1.5 mg/dL (1.5-2.4); Phosphorus 2.9 mg/dL (2.4-5.1)
[2022-09-28 09:32] LABS: African American GFR (CKD) 74.1 (60.0-200.0); Albumin 3.1 g/dL (3.8-4.9); Albumin/Globulin Ratio 1.35 (1.60-3.17); Anion Gap 11.6 mmol/L (10.00-18.00); BUN/Creat Ratio 15.45 Ratio (12.00-20.00); Calcium 5.8 mg/dL (8.7-10.3); Carbon Dioxide 27.4 mmol/L (20.0-27.5); Globulin 2.3 g/dL (1.6-3.3); Potassium 5.2 mmol/L (3.5-5.5); Total Bilirubin 0.7 mg/dL (0.30-1.20); Total Protein 5.4 g/dL (6.2-8.2)
--- NOTE | 2022-09-28 12:05 | P.PN ---
Subjective Progress Note Date: 09/28/22 The patient is seen today in the 2022 in follow-up on the regular medical floor. He is awake and alert in no acute distress. Maintaining good O2 saturations in the 90s on 2 L/m per nasal cannula. White count 18.9. Hemoglobin 8.0. Platelets 225. Sodium 141. Potassium 5.2. Bicarb 27. BUN 17. Creatinine 1.1. Glucose 84. He is continued continued on DuoNeb inhalations. Anticoagulated with Eliquis. Plan is for subacute rehab at discharge. [facility] - Vital Signs Vital signs: Vital Signs Temp 97.9 F 09/28/22 07:32 Pulse 75 09/28/22 07:32 Resp 18 09/28/22 07:32 BP 148/51 09/28/22 07:32 Pulse Ox 96 09/28/22 08:03 FiO2 Intake & Output 09/27/22 09/28/22 09/28/22 18:59 06:59 18:59 Intake Total 120 Output Total 400 Balance -280 Intake: Oral 120 Output: Urine 400 Other: Voiding Method Bedside Commode Urinal Urinal Diaper Diaper Diaper # Voids 2 1 # Bowel Movements 1 1 - Exam GENERAL EXAM: Alert, pleasant 69-year-old male, comfortable in no apparent distress. He is very hard of hearing, currently on 2 L nasal cannula HEAD: Normocephalic and atraumatic EYES: Normal reaction of pupils, equal size. NOSE: Clear with pink turbinates. THROAT: No erythema or exudates. NECK: No masses, no JVD. CHEST: No chest wall deformity. LUNGS: Lung sounds are mostly clear on the right side, with reduced aeration of the left. No crackles, wheeze, rhonchi or dullness. CVS: S1 and S2 normal with a grade 2/6 systolic ejection murmur, regular rhythm. No other extra heart sounds ABDOMEN: No hepatosplenomegaly, active bowel sounds, no guarding or rigidity. SPINE: No scoliosis or deformity SKIN: No rashes CENTRAL NERVOUS SYSTEM: No focal deficits, tone is normal in all 4 extremities. EXTREMITIES: There is bilateral 2+ pitting edema of the left lower extremity. Left lower leg incisional site is approximated and clean. No clubbing, or cyanosis. Peripheral pulses are intact. - Labs CBC & Chem 7: 09/28/22 05:28 04/24/23 05:28 Labs: Abnormal Lab Results - Last 24 Hours (Table) 09/28/22 09/28/22 Range/Units 05:28 05:28 WBC 18.94 H (4.50-10.00) X 10*3/uL RBC 3.41 L (4.40-5.60) X 10*6/uL Hgb 8.0 L (13.0-17.0) g/dL Hct 28.6 L (39.6-50.0) % MCH 23.5 L (27.0-32.0) pg MCHC 28.0 L (32.0-37.0) g/dL RDW 25.2 H (11.5-14.5) % Immature Gran # 0.21 H (0.00-0.04) X 10*3/uL Neutrophils # 13.08 H (1.80-7.70) X 10*3/uL Monocytes # 3.92 H (0.20-1.00) X 10*3/uL Calcium 5.8 L* (8.7-10.3) mg/dL Ionized Calcium Kim 3.3 L* (4.5-5.3) mg/dL Alkaline Phosphatase 139 H (41-126) U/L Total Protein 5.4 L (6.2-8.2) g/dL Albumin 3.1 L (3.8-4.9) g/dL Albumin/Globulin Ratio 1.35 L (1.60-3.17) g/dL Vitamin D 25-Hydroxy 16.7 L (30.0-100.0) ng/mL Assessment and Plan Assessment: History of recurrent falls Questionable right sided pneumonia involving the right upper lobe as CAT scan of the neck has shown some limited groundglass changes in the right upper lobe area, consider atypical pneumonia. The patient remains on 3 L of oxygen by nasal cannula. Patient's chest CT without contrast done yesterday showed scattered groundglass opacities throughout the right lungs which were improved compared to 2020 and could represent atypical infection versus scaring. Leukocytosis Left pneumonectomy with complete evacuation of the left lung and volume loss Acute kidney injury and the creatinine is down to 1.4, renal function is improving. History of pacemaker implantation for tachybradycardia syndrome. History of hypertension History of hypothyroidism History of non-small cell lung cancer and previous left-sided pneumonectomy in 2008 Ex-smoker Previous history of a Left lower extremity hematoma being addressed by orthopedics, patient is status post evacuation of hematoma on 08/22/2022. Left hip trauma and intramuscular hemorrhage, history of Plan: The patient was seen and evaluated Stable from the pulmonary standpoint Plan is for subacute rehabilitation Awaiting authorization for [facility] on the dry branch I have personally seen and examined the patient, performed the documentation and the assessment and plan as written. Number of minutes spent on the visit: 10.
--- NOTE | 2022-09-28 15:16 | P.DS ---
Providers Date of admission: 09/21/22 16:04 Expected date of discharge: 09/29/22 Attending physician: Nat Oglesby Consults: 09/21/22 16:04 Consult Physician Routine Consulting Provider: James Stone Consult Reason/Comments: syncope Do you want consulting provider notified?: Yes 09/22/22 08:57 Consult Physician Routine Consulting Provider: Efrain Grijalva Consult Reason/Comments: Pneumonia Do you want consulting provider notified?: Yes Primary care physician: Nat Oglesby Hospital Course: HISTORY OF PRESENTING ILLNESS This is a 77-year-old male patient of Dr. 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 We have been asked to evaluate the patient for syncope. Patient had a recent hospitalization in August status post incision and drainage of the left leg hematoma and also hypovolemic shock due to acute blood loss. Patient was seen at that time by cardiology for chest pain likely related to the hypovolemic shock and acute blood loss. He was transfused 2 units of packed RBCs. Patient presented to the emergency room following a fall unclear if there was loss of consciousness. Patient had no lightheadedness or dizziness prior to the fall. No palpitations, no chest pain. EMS reported the patient was reaching for something and lost his balance and fell. He did hit his forehead on the ground but no other injuries. Patient is seen today in the emergency center. He has been resumed on his home cardiac medications. His vital signs have been stable. EKG ventricularly paced rhythm Chest x-ray: No acute pulmonary disease. Repeat Chest x-ray reveals no significant change. Left lung with left-sided volume loss. No new right-sided pulmonary infiltrate. CAT scan of the brain and cervical spine revealed no acute intracranial process. Nonspecific white matter changes likely chronic small vessel ischemic disease. No evidence of cervical spine fracture. Mild to moderate multilevel degenerative disc disease. Scattered groundglass opacities within the visualized right upper lung concerning for atypical viral pneumonia. 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 INR 1.2. Sodium 139, potassium 3.6, BUN 55 creatinine 1.8. Calcium 5.1. Troponin 0.018 Home cardiac medications: Eliquis 5 mg twice daily, atorvastatin 80 mg at bedtime, Bumex 2 mg daily, losartan 25 mg at bedtime, metolazone 2.5 mg daily, Toprol-XL 100 mg daily, patient also on Jardiance Echocardiogram 08/24/2022 revealed normal ventricular systolic function, mild mitral regurgitation, limited study. He feels a need for care here 09/23 Patient is seen today in follow-up. Blood pressure is on the soft side and 101/50. Orthostatic vital signs were negative. Patient denies having any symptoms today. No lightheadedness or dizziness. No chest pain or shortness of breath. Influenza A, influenza B, RSV and Covid 19 not detected. Echocardiogram is pending. 09/24 Patient underwent CAT scan of the chest which revealed scattered groundglass opacities throughout the right lung which have improved from 2020 and could represent new atypical infection versus chronic scarring. Posttreatment changes suspected removal of the left lung. There is small fluid collection within the pleural space with some irregular appearance more superoinferiorly and posteriorly. Scattered debris within the fluid. Consider MRI. Echocardiogram reveals normal LV function. [id number] tricuspid regurgitation. Moderate to severe mitral regurgitation. Patient states his breathing status is stable today. He denies shortness of breath. He denies any diarrhea. His blood pressures have continued to be soft. He will did have a fluid bolus last evening. Orthostatic showed a change from systolic of 95 supine to a systolic of 81 with standing. WBC 16.5, hemoglobin 8.6, platelet count 216. Chemistry panel not reported. 09/25 Patient is seen today sitting up and recliner. He was started on midodrine yesterday. His blood pressure has been improved and this morning at 125/67. Heart rate in the 70s and 80s, afebrile, pulse ox 97% on room air. Repeat blood work ordered for today is pending. 09/26: Patient sitting up in a chair in no apparent distress, he denies any chest pain, he denies any shortness breath, he has no coughing, we are awaiting the prior authorization for extended care facility displacement patient will likely need to go to [facility], patient appears to be stable at this time his consult is greatly low however his albumin is below as well, patient will be given calcium gluconate 1 g IV piggyback 1, we'll continue with Aureliano carbonate 500 mg orally twice every day as well monitor the patient very closely 09/27: Patient sitting up in a chair in no apparent distress, denies any chest pain, shortness breath, he appears to be stable at this time, we are awaiting transfer to [facility] for the next 24 hours. PHYSICAL EXAMINATION Vitals reviewed CONSTITUTIONAL: No apparent distress. HEENT: Head is normocephalic. Pupils are equal, round. Sclerae anicteric. Mucous membranes of the mouth are moist. Significant hearing loss noted. CHEST EXAMINATION: Diminished breath sounds. No chest wall tenderness is noted on palpation or with deep breathing. HEART EXAMINATION: Regular rate and rhythm. S1, S2 heard. Systolic ejection murmur at apex, no gallops or rub. EXTREMITIES: 2+ peripheral pulses, positive for lower extremity edema and no calf tenderness. SKIN: Warm, dry NEUROLOGIC EXAMINATION: Patient is awake, alert and oriented x3, cranial nerves III-12 grossly intact, muscle power were 4 out of 5 in upper extremities and 3 out of 5 in bilateral lower extremities. ASSESSMENT 1. Presyncope. Likely related to orthostatic hypotension, patient was taken off losartan at this time, he was started on Midodrin 5 mg orally 3 times every day, continue with bilateral knee-high DUNCAN hose, monitor the patient very closely. 2. Acute kidney injury secondary to acute tubular necrosis due to aggressive diuresis and poor oral intake of fluid. Patient will be maintained on Farxiga 10 mg po daily 3. Community acquired Pneumonia. Just finished antibiotic. 4 . Recent left leg hematoma status post evacuation 08/22. Stable at this time. 5. History of tachy-arabella syndrome and syncope status post pacemaker implantation in 07/2020 6. Paroxysmal atrial fibrillation. Continue metoprolol ER 100 mg once every da y, continue Eliquis 5 mg orally twice every day . 7. Hypertension and hypertensive cardiovascular disease. Has been recently hypertensive and due to orthostatic hypotension however he is maintained on metoprolol ER 100 mg orally once every day . 8. mixed hyperlipidemia. Continue atorvastatin 80 mg orally once every day. 9. Former tobacco use with COPD. Stable at this time. 10. Former alcohol use in remission now. . 11. Non-small cell lung cancer in 2008 status post left pneumonectomy in remission now. 12. Hypothyroidism. Continue Synthroid 88 g orally once every day. 13. Hypokalemia. Resolved discontinue oral potassium. 14. Hypomagnesemia status post placement. resolved. 15. Hypocalcemia. Patient will be given additional dose of calcium gluconate 2 g IV piggyback 1 and increase calcium carbonate 500 mg orally 3 times every day. 16. 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 on Wednesday to Patient Condition at Discharge: Fair Plan - Discharge Summary Discharge Rx Participant: Yes New Discharge Prescriptions: New Midodrine [ProAmatine] 5 mg PO 0600,1200,1800 #90 tablet Continue Atorvastatin [Lipitor] 80 mg PO HS Magnesium Oxide 400 mg PO DAILY PRN PRN Reason: Muscle Spasm traZODone HCL [Desyrel] 100 mg PO HS Levothyroxine Sodium [Synthroid] 88 mcg PO DAILY Ipratropium-Albuterol Nebulize [Duoneb 0.5 mg-3 mg/3 ml Soln] 3 ml INHALATION RT-QID PRN PRN Reason: Shortness Of Breath Bumetanide [BUMEX] 2 mg PO DAILY Apixaban [Eliquis] 5 mg PO BID #60 tab Empagliflozin [Jardiance] 10 mg PO DAILY Metoprolol Succinate (ER) [Toprol XL] 100 mg PO DAILY Discontinued metOLazone [Zaroxolyn] 2.5 mg PO DAILY Losartan [Cozaar] 25 mg PO HS #30 tab Discharge Medication List Atorvastatin [Lipitor] 80 mg PO HS 06/11/20 [History] Magnesium Oxide 400 mg PO DAILY PRN 12/23/20 [History] Apixaban [Eliquis] 5 mg PO BID #60 tab 10/22/21 [Rx] Empagliflozin [Jardiance] 10 mg PO DAILY 08/21/22 [History] Ipratropium-Albuterol Nebulize [Duoneb 0.5 mg-3 mg/3 ml Soln] 3 ml INHALATION RT-QID PRN 08/21/22 [History] Levothyroxine Sodium [Synthroid] 88 mcg PO DAILY 08/21/22 [History] traZODone HCL [Desyrel] 100 mg PO HS 08/21/22 [History] Bumetanide [BUMEX] 2 mg PO DAILY 09/21/22 [History] Metoprolol Succinate (ER) [Toprol XL] 100 mg PO DAILY 09/21/22 [History] Midodrine [ProAmatine] 5 mg PO 0600,1200,1800 #90 tablet 09/28/22 [Rx] Follow up Appointment(s)/Referral(s): Nat Oglesby MD [Primary Care Provider] - 10/06/22 2:15 pm () [facility], [NON-STAFF] - 1 Week Activity/Diet/Wound Care/Special Instructions: MEDICAID WAIVER PROGRAM: [email or web address]/assistance-programs/healthcare/seniors/maria elena jang/em-elobye-zrvlzx-program Nursing homes used to be the only choice for older or disabled persons who needed help caring for themselves. Today there are many choices that allow individuals to live independently while receiving nursing facility level of care in their home or in a community setting. One program run by [place] [employer] is the [place]. It began in 1991 as the Home and Community Based Services for the Elderly and Disabled (HCBS/ED) waiver program. We now know it as the [place], or simply, "the waiver." Through [place] [employer], eligible adults who meet income and asset criteria can receive Medicaid-covered services like those provided by nursing homes but can stay in their own home or another residential setting. The waiver became available in all [facility] March 07, 1998. Each participant can receive the basic services [place] Medicaid covers, supports coordination, and one or more of the following services in the waiver: Adult day health (adult day care) Chore services Community health worker Community living supports Community transportation Counseling Environmental accessibility adaptations Leann intermediary Goods and services Home delivered meals Nursing services Personal emergency response systems (PERS) Private duty nursing/respiratory care Respite services Specialized medical equipment and supplies Training in a variety of independent living skills Discharge/Stand Alone Forms: Adult Foster Halfway List, Assisted Living Facilities, Community Resources Discharge Disposition: HOME WITH HOME HEALTH SERVICES
[2022-09-28] MEDS: traZODone HCL 100 MG TAB PO SCH (20:11)
[2022-09-28] MEDS: ATORVASTATIN 80 MG TAB PO SCH (20:11)
[2022-09-29 02:17] VITALS: RESP 16
[2022-09-29] MEDS: LEVOTHYROXINE 88 MCG TAB PO SCH (05:52)
[2022-09-29] MEDS: MIDODRINE 5 MG TAB PO SCH ×2 (05:52→11:53)
[2022-09-29 07:56] VITALS: BP 117/54; PULSE 75; TEMP 98.1
[2022-09-29] MEDS: CALCIUM CARBONATE 500 MG CHEWABLE PO SCH (09:49)
[2022-09-29] MEDS: METOPROLOL SUCCINATE (ER) 100 MG TAB.ER.24H PO SCH (09:49)
[2022-09-29] MEDS: APIXABAN 5 MG TAB PO SCH (09:49)
[2022-09-29] MEDS: DAPAGLIFLOZIN PROPANEDIOL 5 MG TABLET PO SCH (09:49)
[2022-09-29] MEDS: PANTOPRAZOLE 40 MG TABLET PO SCH (09:49)
--- NOTE | 2022-09-29 11:40 | P.PN ---
Subjective Progress Note Date: 09/29/22 The patient is seen today in the 2022 in follow-up on the regular medical floor. He is awake and alert in no acute distress. Maintaining good O2 saturations in the 90s on 2 L/m per nasal cannula. White count 18.9. Hemoglobin 8.0. Platelets 225. Sodium 141. Potassium 5.2. Bicarb 27. BUN 17. Creatinine 1.1. Glucose 84. He is continued continued on DuoNeb inhalations. Anticoagulated with Eliquis. Plan is for subacute rehab at discharge. The patient is seen today 09/29/2022 in follow-up on the regular medical floor. He is currently resting comfortably in bed. Awake and alert in no acute distress. He is currently maintaining good O2 saturations in the mid to upper 90s on 3 L/m per nasal cannula. He is afebrile. Hemodynamically stable. He remains on DuoNeb inhalations. Anticoagulated with Eliquis. No new labs today. Plan is for discharge to home with [facility]. Objective - Vital Signs Vital signs: Vital Signs Temp 98.1 F 09/29/22 07:27 Pulse 75 09/29/22 07:27 Resp 16 09/29/22 07:27 BP 117/54 09/29/22 07:27 Pulse Ox 99 09/29/22 07:27 FiO2 Intake & Output 09/28/22 09/29/22 09/29/22 18:59 06:59 18:59 Intake Total 222 Output Total 300 200 Balance -300 22 Intake: Oral 222 Output: Urine 300 200 Other: Voiding Method Urinal Urinal Urinal Diaper Diaper Diaper # Voids 3 1 # Bowel Movements 1 1 - Exam GENERAL EXAM: Alert, 69-year-old male, in no apparent distress. He is hard of hearing, currently on 3 L nasal cannula HEAD: Normocephalic and atraumatic EYES: Normal reaction of pupils, equal size. NOSE: Clear with pink turbinates. THROAT: No erythema or exudates. NECK: No masses, no JVD. CHEST: No chest wall deformity. LUNGS: Lung sounds are mostly clear on the right side, with reduced aeration of the left. No crackles, wheeze, rhonchi or dullness. CVS: S1 and S2 normal with a grade 2/6 systolic ejection murmur, regular rhythm. No other extra heart sounds ABDOMEN: No hepatosplenomegaly, active bowel sounds, no guarding or rigidity. SPINE: No scoliosis or deformity SKIN: No rashes CENTRAL NERVOUS SYSTEM: No focal deficits, tone is normal in all 4 extremities. EXTREMITIES: There is bilateral 2+ pitting edema of the left lower extremity. Left lower leg incisional site is approximated and clean. No clubbing, or cyanosis. Peripheral pulses are intact. - Labs CBC & Chem 7: 09/28/22 05:28 09/28/22 05:28 Assessment and Plan Assessment: History of recurrent falls Questionable right sided pneumonia involving the right upper lobe as CAT scan of the neck has shown some limited groundglass changes in the right upper lobe area, consider atypical pneumonia. The patient remains on 3 L of oxygen by nasal cannula. Patient's chest CT without contrast done yesterday showed scattered groundglass opacities throughout the right lungs which were improved compared to 2020 and could represent atypical infection versus scaring. Leukocytosis Left pneumonectomy with complete opacification of the left lung and volume loss Acute kidney injury and the creatinine is down to 1.4, renal function is improving. History of pacemaker implantation for tachybradycardia syndrome. History of hypertension History of hypothyroidism History of non-small cell lung cancer and previous left-sided pneumonectomy in 2008 Ex-smoker Previous history of a Left lower extremity hematoma being addressed by orthopedics, patient is status post evacuation of hematoma on 08/22/2022. Left hip trauma and intramuscular hemorrhage, history of Plan: The patient was seen and evaluated Stable from the pulmonary standpoint Plan is now home with home care May need home oxygen, to be checked prior to discharge I have personally seen and examined the patient, performed the documentation and the assessment and plan as written. Number of minutes spent on the visit: 10.
--- NOTE | 2022-09-29 23:00 | P.PN ---
Subjective Progress Note Date: 09/28/22 HISTORY OF PRESENTING ILLNESS This is a 77-year-old male patient of Dr. 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 We have been asked to evaluate the patient for syncope. Patient had a recent hospitalization in August status post incision and drainage of the left leg hematoma and also hypovolemic shock due to acute blood loss. Patient was seen at that time by cardiology for chest pain likely related to the hypovolemic shock and acute blood loss. He was transfused 2 units of packed RBCs. Patient presented to the emergency room following a fall unclear if there was loss of consciousness. Patient had no lightheadedness or dizziness prior to the fall. No palpitations, no chest pain. EMS reported the patient was reaching for something and lost his balance and fell. He did hit his forehead on the ground but no other injuries. Patient is seen today in the emergency center. He has been resumed on his home cardiac medications. His vital signs have been stable. EKG ventricularly paced rhythm Chest x-ray: No acute pulmonary disease. Repeat Chest x-ray reveals no significant change. Left lung with left-sided v olume loss. No new right-sided pulmonary infiltrate. CAT scan of the brain and cervical spine revealed no acute intracranial process. Nonspecific white matter changes likely chronic small vessel ischemic disease. No evidence of cervical spine fracture. Mild to moderate multilevel degenerative disc disease. Scattered groundglass opacities within the visualized right upper lung concerning for atypical viral pneumonia. 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 INR 1.2. Sodium 139, potassium 3.6, BUN 55 creatinine 1.8. Calcium 5.1. Troponin 0.018 Home cardiac medications: Eliquis 5 mg twice daily, atorvastatin 80 mg at bedtime, Bumex 2 mg daily, losartan 25 mg at bedtime, metolazone 2.5 mg daily, Toprol-XL 100 mg daily, patient also on Jardiance Echocardiogram 08/24/2022 revealed normal ventricular systolic function, mild mitral regurgitation, limited study. He feels a need for care here 09/23 Patient is seen today in follow-up. Blood pressure is on the soft side and 101/50. Orthostatic vital signs were negative. Patient denies having any symptoms today. No lightheadedness or dizziness. No chest pain or shortness of breath. Influenza A, influenza B, RSV and Covid 19 not detected. Echocardiogram is pending. 09/24 Patient underwent CAT scan of the chest which revealed scattered groundglass opacities throughout the right lung which have improved from 2020 and could represent new atypical infection versus chronic scarring. Posttreatment changes suspected removal of the left lung. There is small fluid collection within the pleural space with some irregular appearance more superoinferiorly and posteriorly. Scattered debris within the fluid. Consider MRI. Echocardiogram reveals normal LV function. [id number] tricuspid regurgitation. Moderate to severe mitral regurgitation. Patient states his breathing status is stable today. He denies shortness of breath. He denies any diarrhea. His blood pressures have continued to be soft. He will did have a fluid bolus last evening. Orthostatic showed a change from systolic of 95 supine to a systolic of 81 with standing. WBC 16.5, hemoglobin 8.6, platelet count 216. Chemistry panel not reported. 09/25 Patient is seen today sitting up and recliner. He was started on midodrine yesterday. His blood pressure has been improved and this morning at 125/67. Heart rate in the 70s and 80s, afebrile, pulse ox 97% on room air. Repeat blood work ordered for today is pending. 09/26: Patient sitting up in a chair in no apparent distress, he denies any chest pain, he denies any shortness breath, he has no coughing, we are awaiting the prior authorization for extended care facility displacement patient will likely need to go to [facility], patient appears to be stable at this time his consult is greatly low however his albumin is below as well, patient will be given calcium gluconate 1 g IV piggyback 1, we'll continue with Aureliano carbonate 500 mg orally twice every day as well monitor the patient very closely 09/27: Patient sitting up in a chair in no apparent distress, denies any chest pain, shortness breath, he appears to be stable at this time, we are awaiting transfer to [facility] for the next 24 hours. 09/28: Patient is laying down in bed in no apparent distress, he did have an episode of epistaxis from his left nostril, but was stopped with a pressure, he denies any chest pain or any shortness breath at this time, he has no coughing, he has no hemoptysis, he has no abdominal pain, nausea or vomiting or diarrhea, he did have a good bowel movement, his swelling is down, he was declined by the insurance from going to the rehab, therefore the patient will be discharged home tomorrow morning his sister, pick him up. PHYSICAL EXAMINATION Vitals reviewed CONSTITUTIONAL: No apparent distress. HEENT: Head is normocephalic. Pupils are equal, round. Sclerae anicteric. Mucous membranes of the mouth are moist. Significant hearing loss noted. CHEST EXAMINATION: Diminished breath sounds. No chest wall tenderness is noted on palpation or with deep breathing. HEART EXAMINATION: Regular rate and rhythm. S1, S2 heard. Systolic ejection murmur at apex, no gallops or rub. EXTREMITIES: 2+ peripheral pulses, positive for lower extremity edema and no calf tenderness. SKIN: Warm, dry NEUROLOGIC EXAMINATION: Patient is awake, alert and oriented x3, cranial nerves III-12 grossly intact, muscle power were 4 out of 5 in upper extremities and 3 out of 5 in bilateral lower extremities. ASSESSMENT 1. Presyncope. Likely related to orthostatic hypotension, patient was taken off losartan at this time, he was started on Midodrin 5 mg orally 3 times every day, continue with bilateral knee-high DUNCAN hose, monitor the patient very closely. 2. Acute kidney injury secondary to acute tubular necrosis due to aggressive diuresis and poor oral intake of fluid. Patient will be maintained on Farxiga 10 mg po daily 3. Community acquired Pneumonia. Just finished antibiotic. 4 . Recent left leg hematoma status post evacuation 08/22. Stable at this time. 5. History of tachy-arabella syndrome and syncope status post pacemaker implantati on in 07/2020 6. Paroxysmal atrial fibrillation. Continue metoprolol ER 100 mg once every day, continue Eliquis 5 mg orally twice every day . 7. Hypertension and hypertensive cardiovascular disease. Has been recently hypertensive and due to orthostatic hypotension however he is maintained on met oprolol ER 100 mg orally once every day . 8. mixed hyperlipidemia. Continue atorvastatin 80 mg orally once every day. 9. Former tobacco use with COPD. Stable at this time. 10. Former alcohol use in remission now. . 11. Non-small cell lung cancer in 2008 status post left pneumonectomy in r emission now. 12. Hypothyroidism. Continue Synthroid 88 g orally once every day. 13. Hypokalemia. Resolved discontinue oral potassium. 14. Hypomagnesemia status post placement. resolved. 15. Hypocalcemia. Patient will be given additional dose of calcium gluconate 2 g IV piggyback 1 and increase calcium carbonate 500 mg orally 3 times every day. 16. Patient will be going home tomorrow with his sister. Objective - Vital Signs Vital signs: Vital Signs Temp 98.1 F 09/29/22 07:27 Pulse 75 09/29/22 07:27 Resp 16 09/29/22 07:27 BP 117/54 09/29/22 07:27 Pulse Ox 99 09/29/22 07:27 FiO2 Intake & Output 09/29/22 09/29/22 09/30/22 06:59 18:59 06:59 Intake Total 222 Output Total 200 Balance 22 Weight 73.936 kg Intake: Oral 222 Output: Urine 200 Other: Voiding Method Urinal Urinal Diaper Diaper # Voids 1 # Bowel Movements 1 - Labs CBC & Chem 7: 09/28/22 05:28 09/28/22 05:28 Labs: Abnormal Lab Results - Last 24 Hours (Table) 09/28/22 Range/Units 05:28 Vit D 1,25-Dihydroxy 19 L (20 - 79) pg/mL
--- NOTE | 2022-10-02 11:07 | CDI ---
Documentation Clarification Form Date: 10/02/2022 10:29:07 AM From: Briseida Thomason RN CCDS Phone: [phone] Admit Date: 09/21/2022 4:04:00 PM Patient Name: Cuauhtemoc Boone Visit Number: [id number] Discharge Date: 09/29/2022 2:26:00 PM ATTENTION: The Clinical Documentation Specialists (CDI) and [facility] Coding Staff appreciate your assistance in clarifying documentation. Please respond to the clarification below the line at the bottom and electronically sign. The CDI & [facility] Coding staff will review the response and follow-up if needed. Please note: Queries are made part of the Legal Health Record. If you have any questions, please contact the author of this message via ITS. Dr. Nat SPRAGUE is documented 09/26, Medicine progress note 09/26 which may lack sufficient clinical evidence/support in the medical record. Additional clarification is requested. History/Risk factors: 77-year-old male presents to the ED after a fall and hitting his head on the ground. Medical History: CHF, HTN and Paroxysmal atrial fibrillation. 09/21, ED note. Clinical Indicators: Labs: Patient presents with a BUN 55 / CR 1.82 and GFR 35 on 09/21 Subsequent BUN 27.9 / CR 1.5 and GFR 44 on 09/23 BUN 21.6 / CR 1.1 and GFR 64.7on 09/25 09/22, H&P Medicine: Acute kidney injury. Plan to hold Bumex and Metolazone for now and recheck renal function in the morning. 09/23, Pulmonology note: Acute kidney injury and the creatinine is up to 1.8, renal function is improving. 09/26, Medicine note: Acute kidney injury secondary to acute tubular necrosis due to aggressive diuresis and poor oral intake. Treatment: Discontinued Bumex 2mg PO 09/22 after daily dose given; Discontinued Metolazone 2.5mg PO 09/22 after daily dose given. 09/23 0.9ns 500cc bolus IVPB x 1 Please clarify if ATN is a valid diagnosis? [ X ] Yes, ATN is present as evidence by (additional clinical support): _due to acute tubular necrosis and hemodynamic instability [ ] No, ATN is ruled out [ ] Other (please specify diagnosis) [ ] Unable to determine (Template Last Revised: August 2020) MTDD
== END 2022-09-29 14:26 | disposition home health service (06) ==
LOC: EC 13:45 → INTOOBSV 16:04 → 4SSUR 16:04 → 5NMEDONC 09-22 17:53 → UNDODISIN 09-29 14:26
PROVIDERS: ADMIT Internal Medicine; ATTEND Internal Medicine
DX: R55 Syncope and collapse (principal); S00.83XA Contusion of other part of head, initial encounter; H91.90 Unspecified hearing loss, unspecified ear; N17.0 Acute kidney failure with tubular necrosis; I48.0 Paroxysmal atrial fibrillation; E03.9 Hypothyroidism, unspecified; I25.10 Atherosclerotic heart disease of native coronary artery without angina pectoris; I67.2 Cerebral atherosclerosis; I11.0 Hypertensive heart disease with heart failure; E83.42 Hypomagnesemia; I50.32 Chronic diastolic (congestive) heart failure; D64.9 Anemia, unspecified; G31.9 Degenerative disease of nervous system, unspecified; I25.2 Old myocardial infarction; H27.02 Aphakia, left eye; E87.6 Hypokalemia; F10.11 Alcohol abuse, in remission; E78.2 Mixed hyperlipidemia; J44.0 Chronic obstructive pulmonary disease with (acute) lower respiratory infection; J18.9 Pneumonia, unspecified organism; E83.51 Hypocalcemia; I08.1 Rheumatic disorders of both mitral and tricuspid valves; M48.02 Spinal stenosis, cervical region; M25.78 Osteophyte, vertebrae; G62.1 Alcoholic polyneuropathy; K44.9 Diaphragmatic hernia without obstruction or gangrene; Z79.899 Other long term (current) drug therapy; Z79.890 Hormone replacement therapy; Z95.0 Presence of cardiac pacemaker; Z90.2 Acquired absence of lung [part of]; Z63.4 Disappearance and death of family member; Z82.49 Family history of ischemic heart disease and other diseases of the circulatory system; Z80.0 Family history of malignant neoplasm of digestive organs; Z83.438 Family history of other disorder of lipoprotein metabolism and other lipidemia; Z90.49 Acquired absence of other specified parts of digestive tract; Z20.822 Contact with and (suspected) exposure to COVID-19; Z79.01 Long term (current) use of anticoagulants; Z87.891 Personal history of nicotine dependence; Z80.1 Family history of malignant neoplasm of trachea, bronchus and lung; W01.0XXA Fall on same level from slipping, tripping and stumbling without subsequent striking against object, initial encounter
CPT/HCPCS: 96361 ×2; 96366 ×6; 96367 ×3; 96365 ×2; 96375; 99285; 36415; 94760 ×4; 93005; 93306; 97530 ×5; 97162; 97535; 97166; 82652; 80053 ×4; 80048 ×2; 87449; 82330; 83735 ×5; 84100; 84484; 85025 ×3; 85027 ×3; 85610; 85730; 87324; 82306; 83970; 84145; 87635; 87636; 72170; 71045 ×2; 71046; 72125; 70450; 71250; G0378 ×9; J0456 ×4; J0696 ×5; J2916; J3475 ×4; J0613 ×2; 96374

== ENCOUNTER → 2022-10-22 | Outpatient (CLI) | payer MEDICARE, OTHER ==
--- NOTE | 2022-10-22 16:47 | XR ---
EXAMINATION TYPE: XR chest 2V DATE OF EXAM: 10/22/2022 COMPARISON: 09/25/2022 HISTORY: 69-year-old male R05.1, acute cough TECHNIQUE: Frontal and lateral views FINDINGS: Patient is rotated towards the left. This may account for the hazy density throughout the right hemit horax, increased from prior. Left anterior chest wall pacemaker generator with right atrial and right ventricular leads. Surgical clips at the left hilum. There is white out of the left hemithorax and s hift of the heart into the left side of the chest suggestive of prior pneumonectomy. 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 Hyperinflation. IMPRESSION: 1. COPD and prior left pneumonectomy. 2. Interval development of hazy density throughout the right hemithorax. Correlate for developing air space disease/pneumonitis.
== END | disposition home or self-care (01) ==
LOC: RADXRMAIN 11:27
PROVIDERS: ATTEND Internal Medicine
DX: J44.9 Chronic obstructive pulmonary disease, unspecified (principal); Z90.2 Acquired absence of lung [part of]
CPT/HCPCS: 71046

== ENCOUNTER → 2023-02-04 | Outpatient (CLI) | payer MEDICARE, OTHER ==
--- NOTE | 2023-02-04 15:32 | CT ---
EXAMINATION TYPE: CT chest wo con CT DLP: 328.30 mGycm, Automated exposure control for dose reduction was used. DATE OF EXAM: 02/04/2023 9:17 AM COMPARISON: 09/23/2022 and 06/11/2020. 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 Two-dimensional coronal and sagittal re constructions were obtained. Contrast used: Oral contrast used: without Oral Contrast Findings: CHEST: LUNGS/ PLEURA: The left lung appears surgically absent. There is leftward deviation of the lung. Smal l pleural effusion present. There is a nodular changes in the pleural space of the inferior aspect of the lung on the left and in the midlung on the left felt to be grossly similar in size. Scattered gr oundglass opacities are seen throughout the right lung which have improved in a different morphology compared to prior on 09/23/2022 and 12/23/2020. No focal right-sided consolidation pneumothorax or pleu ral effusion. AIRWAY: Patent and unremarkable. HEART: The heart is mildly enlarged for size. There is cardiac conduction leads present. MEDIASTINUM: No gross evidence of adenopathy. VASCULATURE: No aortic aneurysm. Atherosclerosis of the arterial vasculature. 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 MUSCULOSKELETAL: No acute osseous abnormalities SOFT TISSUES/LYMPH NODES: Unremarkable. LOWER NECK: No significant findings. UPPER ABDOMEN: The gallbladder is surgically absent. There is a small hiatal hernia. IMPRESSION: 1. Scattered ground glass opacities have shifted in morphology within the right lung compared to 09/05 and 12/23/2020 and are new from one of 2020. Findings could represent atypical infection arsenio diony pneumonitis versus less likely pulmonary edema. . Clinical correlation advised. 2. Posttreatment changes with suspected removal of the left lung. There is small fluid collection wi thin the pleural space with some irregular appearance more superiorly and posteriorly. Scattered repr esent debris within the fluid. Consider MRI and/or ultrasound.
== END | disposition home or self-care (01) ==
LOC: RADCTMAIN 08:44
PROVIDERS: ATTEND Internal Medicine
DX: C34.92 Malignant neoplasm of unspecified part of left bronchus or lung (principal); R91.8 Other nonspecific abnormal finding of lung field
CPT/HCPCS: 71250; 74150

== ENCOUNTER 2023-03-18 09:53 | Inpatient (IN) | payer MEDICARE, OTHER ==
[2023-03-18 10:40] LABS: Anisocytosis Slight; Basophils % (A) 0 %; Eosinophils # (A) 0.1 k/uL (0-0.7); Eosinophils % (A) 0 %; HCT 31.6 % (39.0-53.0); HGB 9.3 gm/dL (13.0-17.5); Hypochromasia Marked; Lymphocytes # (A) 1.1 k/uL (1.0-4.8); Lymphocytes % (A) 6 %; MCH 19.5 pg (25.0-35.0); MCHC 29.4 g/dL (31.0-37.0); MCV 66.2 fL (80.0-100.0); Mean Platelet Volume 8.5; Microcytosis Marked; Monocytes # (A) 2.2 k/uL (0-1.0); Monocytes % (A) 11 %; Neutrophils # (A) 16.7 k/uL (1.3-7.7); Neutrophils % (A) 82 %; Platelet Count 253 k/uL (150-450); RBC 4.78 m/uL (4.30-5.90); RDW 16.3 % (11.5-15.5); WBC 20.4 k/uL (3.8-10.6)
--- NOTE | 2023-03-18 10:40 | ED ---
General Adult HPI - General Chief complaint: Shortness of Breath Stated complaint: SOB Time Seen by Provider: 03/18/23 10:05 Source: patient, EMS, RN notes reviewed, old records reviewed Mode of arrival: EMS Limitations: no limitations - History of Present Illness Initial comments: This is a 77-year-old male who presents emergency Department complaining of shortness of breath. Patient has history of COPD and congestive heart failure. Patient was told by his physician that he had fluid on the lungs and he was sent here to be evaluated. Patient denies any chest pain or palpitations. Patient denies any fever chills or cough per patient denies any abdominal pain patient denies nausea vomiting diarrhea per patient denies any leg pain or leg swelling. Patient denies any calf pain. - Related Data Home Medications Medication Instructions Recorded Confirmed Atorvastatin [Lipitor] 80 mg PO HS 06/11/20 09/21/22 Magnesium Oxide 400 mg PO DAILY PRN 12/23/20 09/21/22 Empagliflozin [Jardiance] 10 mg PO DAILY 08/21/22 09/21/22 Ipratropium-Albuterol Nebulize 3 ml INHALATION RT-QID PRN 08/21/22 09/21/22 [Duoneb 0.5 mg-3 mg/3 ml Soln] Levothyroxine Sodium [Synthroid] 88 mcg PO DAILY 08/21/22 09/21/22 traZODone HCL [Desyrel] 100 mg PO HS 08/21/22 09/21/22 Bumetanide [BUMEX] 2 mg PO DAILY 09/21/22 09/21/22 Metoprolol Succinate (ER) [Toprol 100 mg PO DAILY 09/21/22 09/21/22 XL] Previous Rx's Medication Instructions Recorded Apixaban [Eliquis] 5 mg PO BID #60 tab 10/22/21 Midodrine [ProAmatine] 5 mg PO 0600,1200,1800 #90 tablet 09/28/22 Allergies Allergy/AdvReac Type Severity Reaction Status Date / Time No Known Allergies Allergy Verified 03/18/23 10:13 Review of Systems ROS Statement: Those systems with pertinent positive or pertinent negative responses have been documented in the HPI. ROS Other: All systems not noted in ROS Statement are negative. Past Medical History Past Medical History: Coronary Artery Disease (CAD), Heart Failure, COPD, Hypertension, Thyroid Disorder Additional Past Medical History / Comment(s): vertigo Last Myocardial Infarction Date:: 2013 History of Any Multi-Drug Resistant Organisms: None Reported Past Surgical History: Hernia Repair, Pacemaker Additional Past Surgical History / Comment(s): Left lung removed Past Anesthesia/Blood Transfusion Reactions: No Reported Reaction Type of Cardiac Device: Unknown Device Placement Date:: June, Past Psychological History: No Psychological Hx Reported Smoking Status: Former smoker Past Alcohol Use History: None Reported Past Drug Use History: None Reported - Past Family History Father Family Medical History: Memory Impairment Additional Family Medical History / Comment(s): Father at age 71 from a myocardial infarction. Mother Family Medical History: No Reported History Additional Family Medical History / Comment(s): Mother at age 92 from old age. Brother(s) Additional Family Medical History / Comment(s): Patient has 3 brothers alive with no major medical problems. One brother is dying from stomach cancer. Sister(s) Additional Family Medical History / Comment(s): Patient has one sister and she is alive. History of hypertension and hyperlipidemia. General Exam - General Exam Comments Initial Comments: GENERAL: Patient is well-developed and well-nourished. Patient is nontoxic and well- hydrated and is in mild distress. ENT: Neck is soft and supple. No significant lymphadenopathy is noted. Oropharynx is clear. Moist mucous membranes. Neck has full range of motion without eliciting any pain. EYES: The sclera were anicteric and conjunctiva were pink and moist. Extraocular movements were intact and pupils were equal round and reactive to light. Eyelids were unremarkable. PULMONARY: Patient has diminished breath sounds on the left base as well as crackles in the left side CARDIOVASCULAR: There is a regular rate and rhythm without any murmurs gallops or rubs. ABDOMEN: Soft and nontender with normal bowel sounds. SKIN: Skin is clear with no lesions or rashes and otherwise unremarkable. NEUROLOGIC: Patient is alert and oriented x3. Cranial nerves II through XII are grossly intact. Motor and sensory are also intact. Normal speech, volume and content. Symmetrical smile. MUSCULOSKELETAL: Normal extremities with adequate strength and full range of motion. LYMPHATICS: No significant lymphadenopathy is noted PSYCHIATRIC: Normal psychiatric evaluation. Limitations: no limitations Course Vital Signs 03/18/23 10:05 Temperature 98.3 F Pulse Rate 97 Respiratory 20 Rate Blood Pressure 155/73 O2 Sat by Pulse 99 Oximetry Medical Decision Making - Medical Decision Making EKG is interpreted by myself. EKG shows a paced rhythm at 77 bpm NV interval 170 QRS is under 26 QT interval 377 QTC is 49. Patient's EKG shows no ST segment elevation or depression. Was pt. sent in by a medical professional or institution ([facility], [facility], urgent care, hospital, or residential...) When possible be specific @ -No Did you speak to anyone other than the patient for history (EMS, parent, family, police, friend...)? What history was obtained from this source @ -No Did you review nursing and triage notes (agree or disagree)? Why? @ -I reviewed and agree with nursing and triage notes Were old charts reviewed (outside hosp., previous admission, EMS record, old EKG, old radiological studies, urgent care reports/EKG's, residential records)? Report findings @ -I reviewed prior charts primary radiological studies in prior laboratory on this patient Differential Diagnosis (chest pain, altered mental status, abdominal pain women, abdominal pain men, vaginal bleeding, weakness, fever, dyspnea, syncope, headache, dizziness, GI bleed, back pain, seizure, CVA, palpatations, mental health, musculoskeletal)? @ -Differential Dyspnea: Coronary syndrome, arrhythmia, tamponade, asthma, COPD, pulmonary embolism, pneumonia, pneumothorax, pulmonary effusion, anaphylaxis, diabetic ketoacidosis, flailed chest, pulmonary contusion, diaphragmatic rupture, anemia, neuromus cular, this is not meant to be an all-inclusive list. EKG interpreted by me (3pts min.). @ -As above X-rays interpreted by me (1pt min.). @ -Chest x-ray shows patchy opacifications on the right and a pneumonectomy on the left. This is most consistent with pneumonia versus pneumonitis CT interpreted by me (1pt min.). @ -None done U/S interpreted by me (1pt. min.). @ -None done What testing was considered but not performed or refused? (CT, X-rays, U/S, labs)? Why? @ -None What meds were considered but not given or refused? Why? @ -None Did you discuss the management of the patient with other professionals (professionals i.e. Dr., PA, COURT ORDER[facility], lab, RT, psych nurse, executive secretary social welfare, weight loss centre manager, teacher, marketing officer, casework specialist)? Give summary @ -I spoke with Dr. Oglesby he agreed to admit the patient Was smoking cessation discussed for >3mins.? @ -No Was critical care preformed (if so, how long)? @ -No Were there social determinants of health that impacted care today? How? (Homelessness, low income, unemployed, alcoholism, drug addiction, transportation, low edu. Level, literacy, decrease access to med. care, mcc, rehab)? @ -No Was there de-escalation of care discussed even if they declined (Discuss DNR or withdrawal of care, Hospice)? DNR status @ -No What co-morbidities impacted this encounter? (DM, HTN, Smoking, COPD, CAD, Cancer, CVA, ARF, Chemo, Hep., AIDS, mental health diagnosis, sleep apnea, morbid obesity)? @ -None Was patient admitted / discharged? Hospital course, mention meds given and route, prescriptions, significant lab abnormalities, going to OR and other pertinent info. @ -Patient received antibiotics in the emergency department as well as Lasix. I spoke with Dr. Oglesby and he agreed to admit the patient admitted the patient I consult the pulmonary Undiagnosed new problem with uncertain prognosis? @ -No Drug Therapy requiring intensive monitoring for toxicity (Heparin, Nitro, Insulin, Cardizem)? @ -No Were any procedures done? @ -No Diagnosis/symptom? @ -Pneumonia Acute, or Chronic, or Acute on Chronic? @ -Acute Uncomplicated (without systemic symptoms) or Complicated (systemic symptoms)? @ -Complicated Side effects of treatment? @ -No Exacerbation, Progression, or Severe Exacerbation? @ -No Poses a threat to life or bodily function? How? (Chest pain, [place], OR, pneumonia, PE, COPD, DKA, ARF, appy, cholecystitis, CVA, Diverticulitis, Homicidal, Suicidal, threat to staff... and all critical care pts) @ -Yes this can lead to sepsis and end organ dysfunction Diagnosis/symptom? @ -Pulmonary edema Acute, or Chronic, or Acute on Chronic? @ -Acute Uncomplicated (without systemic symptoms) or Complicated (systemic symptoms)? @ -Complicated Side effects of treatment? @ -none Exacerbation, Progression, or Severe Exacerbation] @ -no Poses a threat to life or bodily function? @ -Yes this could the hypoxia and end organ dysfunction - Lab Data Result diagrams: 03/18/23 10:32 03/18/23 10:32 Lab Results 03/18/23 03/18/23 03/18/23 Range/Units 10:32 10:32 10:32 WBC 20.4 H (3.8-10.6) k/uL RBC 4.78 (4.30-5.90) m/uL Hgb 9.3 L (13.0-17.5) gm/dL Hct 31.6 L (39.0-53.0) % MCV 66.2 L (80.0-100.0) fL MCH 19.5 L (25.0-35.0) pg MCHC 29.4 L (31.0-37.0) g/dL RDW 16.3 H (11.5-15.5) % Plt Count 253 (150-450) k/uL MPV 8.5 Neutrophils % 82 % Lymphocytes % 6 % Monocytes % 11 % Eosinophils % 0 % Basophils % 0 % Neutrophils # 16.7 H (1.3-7.7) k/uL Lymphocytes # 1.1 (1.0-4.8) k/uL Monocytes # 2.2 H (0-1.0) k/uL Eosinophils # 0.1 (0-0.7) k/uL Basophils # 0.0 (0-0.2) k/uL Hypochromasia Marked Anisocytosis Slight Microcytosis Marked PT 10.5 (9.0-12.0) sec INR 1.0 (<1.2) APTT 21.9 L (22.0-30.0) sec Sodium 141 (137-145) mmol/L Potassium 4.6 (3.5-5.1) mmol/L Chloride 102 (98-107) mmol/L Carbon Dioxide 24 (22-30) mmol/L Anion Gap 15 mmol/L BUN 39 H (9-20) mg/dL Creatinine 1.04 (0.66-1.25) mg/dL Est GFR (CKD-EPI)AfAm 80 (>60 ml/min/1.73 sqM) Est GFR (CKD-EPI)NonAf 69 (>60 ml/min/1.73 sqM) Glucose 89 (74-99) mg/dL Calcium 8.9 (8.4-10.2) mg/dL Magnesium 2.0 (1.6-2.3) mg/dL Total Bilirubin 2.7 H (0.2-1.3) mg/dL AST 27 (17-59) U/L ALT 15 (4-49) U/L Alkaline Phosphatase 72 (38-126) U/L Troponin I (0.000-0.034) ng/mL NT-Pro-B Natriuret Pep 3170 pg/mL Total Protein 7.1 (6.3-8.2) g/dL Albumin 4.5 (3.5-5.0) g/dL 03/18/23 Range/Units 10:32 WBC (3.8-10.6) k/uL RBC (4.30-5.90) m/uL Hgb (13.0-17.5) gm/dL Hct (39.0-53.0) % MCV (80.0-100.0) fL MCH (25.0-35.0) pg MCHC (31.0-37.0) g/dL RDW (11.5-15.5) % Plt Count (150-450) k/uL MPV Neutrophils % % Lymphocytes % % Monocytes % % Eosinophils % % Basophils % % Neutrophils # (1.3-7.7) k/uL Lymphocytes # (1.0-4.8) k/uL Monocytes # (0-1.0) k/uL Eosinophils # (0-0.7) k/uL Basophils # (0-0.2) k/uL Hypochromasia Anisocytosis Microcytosis PT (9.0-12.0) sec INR (<1.2) APTT (22.0-30.0) sec Sodium (137-145) mmol/L Potassium (3.5-5.1) mmol/L Chloride (98-107) mmol/L Carbon Dioxide (22-30) mmol/L Anion Gap mmol/L BUN (9-20) mg/dL Creatinine (0.66-1.25) mg/dL Est GFR (CKD-EPI)AfAm (>60 ml/min/1.73 sqM) Est GFR (CKD-EPI)NonAf (>60 ml/min/1.73 sqM) Glucose (74-99) mg/dL Calcium (8.4-10.2) mg/dL Magnesium (1.6-2.3) mg/dL Total Bilirubin (0.2-1.3) mg/dL AST (17-59) U/L ALT (4-49) U/L Alkaline Phosphatase (38-126) U/L Troponin I 0.016 (0.000-0.034) ng/mL NT-Pro-B Natriuret Pep pg/mL Total Protein (6.3-8.2) g/dL Albumin (3.5-5.0) g/dL Disposition Clinical Impression: Pneumonia, Acute pulmonary edema Disposition: ADMITTED IP TO THIS HOSP Referrals: Nat Oglesby MD [Primary Care Provider] - 1-2 days Time of Disposition: 11:39
[2023-03-18 11:06] LABS: Partial Thromboplastin Time 21.9 sec (22.0-30.0); Prothrombin Time 10.5 sec (9.0-12.0)
[2023-03-18 11:08] LABS: ALT 15 U/L (4-49); AST 27 U/L (17-59); African American GFR (CKD) 80 (>60 ml/min/1.73 sqM); Albumin 4.5 g/dL (3.5-5.0); Alkaline Phosphatase 72 U/L (38-126); Anion Gap 15 mmol/L; Blood Urea Nitrogen 39 mg/dL (9-20); Calcium 8.9 mg/dL (8.4-10.2); Carbon Dioxide 24 mmol/L (22-30); Chloride 102 mmol/L (98-107); Glucose 89 mg/dL (74-99); Non-African American GFR(CKD) 69 (>60 ml/min/1.73 sqM); Potassium 4.6 mmol/L (3.5-5.1); Sodium 141 mmol/L (137-145); Total Bilirubin 2.7 mg/dL (0.2-1.3); Total Protein 7.1 g/dL (6.3-8.2)
[2023-03-18 11:15] LABS: NT-Pro-B-Type Natriuretic Pept 3170 pg/mL
--- NOTE | 2023-03-18 11:16 | XR ---
EXAMINATION TYPE: XR chest 2V DATE OF EXAM: 03/18/2023 COMPARISON: 03/16/2023 HISTORY: 77-year-old male with shortness of breath and chest pain TECHNIQUE: PA and lateral views FINDINGS: Left anterior chest wall pacemaker generator with right atrial and 2 right ventricular leads. Continu ed complete white out of the left hemithorax with cardiomediastinal shift into the left. Surgical cli ps of the left hilum. Improving aeration throughout the right lung. Some residual airspace disease re [place]. Hyperinflation. Chronic gibbus deformity noted thoracolumbar junction. IMPRESSION: 1. Significantly improving aeration throughout the right lung. Some residual airspace disease remains . 2. COPD with chronic postpneumonectomy changes on the left.
[2023-03-18] MEDS ORDERED: FUROSEMIDE 10 MG/ML 10 ML VIAL IV STA (11:35)
[2023-03-18] MEDS ORDERED: PIPERACILLIN-TAZOBACTAM 3.375 GM in SODIUM CHLORIDE 0.9% 100 ML IVPB STA (11:50)
[2023-03-18] MEDS ORDERED: AZITHROMYCIN 500 MG in SODIUM CHLORIDE 0.9% 250 ML IVPB STA (11:50)
[2023-03-18] MEDS ORDERED: PNEUMONIA PROTOCOL UTILIZED 1 EACH MISC PO PRN (11:50)
[2023-03-18] MEDS ORDERED: BUDESONIDE 1 MG/2 ML NEBU INHALATION STA (12:42)
[2023-03-18] MEDS: IPRATROPIUM-ALBUTEROL 3 ML NEB INHALATION SCH ×2 (15:31→21:34)
--- NOTE | 2023-03-18 15:39 | P.CNPUL ---
History of Present Illness Consult date: 03/18/23 Requesting physician: Nat Oglesby Reason for consult: dyspnea, abnormal CXR/CT Chief complaint: Shortness of breath History of present illness: This is a very pleasant 77-year-old male patient with a known history of diabetes mellitus, hypothyroidism, hyperlipidemia, atrial fibrillation anticoag ulated with Eliquis, permanent pacemaker implantation, lung cancer with previous left-sided pneumonectomy back in 2008. He had been having complaints of increasing shortness of breath over the past several several days. He was seen in the emergency department on 03/16/2023 and was treated for congestive heart failure with 80 mg of Lasix and to follow up with Dr. Oglesby in 1 week. He re-presented to the emergency room today with continued shortness of breath. Today's chest x-ray actually shows significant improvement in aeration of the right lung with some residual airspace disease. Evidence of COPD and chronic postpneumonectomy changes on the left. White count 20.4. Hemoglobin 9.3. Pl atelets 253. Sodium 141. Potassium 4.6. Bicarb 24. BUN 39. Creatinine 1.04. AST 27. ALT 15. Troponin 0.16. ProBNP 3170. Coronavirus by PCR not detected. He is seen today in consultation in the emergency department. He's currently sitting up in a stretcher. Awake and alert in no acute distress. Maintaining O2 saturations up to 100% on 2 L/m per nasal cannula. He is afebrile. Hemodynamically stable. He is short of breath with exertion. Short of breath with minimal conversation. No cough or congestion. No chills. No hemoptysis. He's been initiated on Lasix 40 mg IV every 12 hours. Review of Systems REVIEW OF SYSTEMS: CONSTITUTIONAL: Denies any recent significant weight loss or weight gain. EYES: Denies change in vision. EARS, NOSE, MOUTH, THROAT: Denies headaches, denies sore throat. CARDIOVASCULAR: Denies chest pain, palpitations or syncopal episodes. RESPIRATORY: Positive for shortness of breath, no cough, congestion or hemoptysis. GASTROINTESTINAL: Denies change in appetite, denies abdominal pain GENITOURINARY: Denies hematuria, denies infections. MUSKULOSKELETAL: Denies pain, denies swelling. INTEGUMENTARY: Denies rash, denies eczema. NEUROLOGICAL: Denies recent memory loss, no recent seizure activity. PSYCHIATRIC: Denies anxiety, denies depression. HEMATOLOGIC/LYMPHATIC: Denies anemia, denies enlarged lymph nodes. Past Medical History Past Medical History: Coronary Artery Disease (CAD), Heart Failure, COPD, Hypertension, Thyroid Disorder Additional Past Medical History / Comment(s): vertigo Last Myocardial Infarction Date:: 2013 History of Any Multi-Drug Resistant Organisms: None Reported Past Surgical History: Hernia Repair, Pacemaker Additional Past Surgical History / Comment(s): Left lung removed Past Anesthesia/Blood Transfusion Reactions: No Reported Reaction Type of Cardiac Device: Unknown Device Placement Date:: June, Past Psychological History: No Psychological Hx Reported Smoking Status: Former smoker Past Alcohol Use History: None Reported Past Drug Use History: None Reported - Past Family History Father Family Medical History: Memory Impairment Additional Family Medical History / Comment(s): Father at age 71 from a myocardial infarction. Mother Family Medical History: No Reported History Additional Family Medical History / Comment(s): Mother at age 92 from old age. Brother(s) Additional Family Medical History / Comment(s): Patient has 3 brothers alive with no major medical problems. One brother is dying from stomach cancer. Sister(s) Additional Family Medical History / Comment(s): Patient has one sister and she is alive. History of hypertension and hyperlipidemia. Medications and Allergies Home Medications Medication Instructions Recorded Confirmed Type Atorvastatin [Lipitor] 80 mg PO HS 06/11/20 03/18/23 History Magnesium Oxide 400 mg PO DAILY 12/23/20 03/18/23 History Apixaban [Eliquis] 5 mg PO BID #60 tab 10/22/21 03/18/23 Rx Levothyroxine Sodium [Synthroid] 88 mcg PO DAILY 08/21/22 03/18/23 History traZODone HCL [Desyrel] 100 mg PO HS 08/21/22 03/18/23 History Metoprolol Succinate (ER) [Toprol 100 mg PO DAILY 09/21/22 03/18/23 History XL] Bumetanide [Bumex] 2 mg PO DAILY 03/18/23 03/18/23 History Dapagliflozin Propanediol [Farxiga] 5 mg PO DAILY 03/18/23 03/18/23 History Allergies Allergy/AdvReac Type Severity Reaction Status Date / Time No Known Allergies Allergy Verified 03/18/23 12:31 Physical Exam Vitals: Vital Signs Temp Pulse Resp BP Pulse Ox 03/18/23 15:20 79 20 142/65 100 03/18/23 13:39 71 20 132/79 100 03/18/23 12:38 71 20 144/57 97 03/18/23 10:05 98.3 F 97 20 155/73 99 Intake and Output 03/18/23 03/18/23 03/18/23 06:59 14:59 22:59 Other: Weight 58.967 kg GENERAL EXAM: Alert, frail, cachectic 77-year-old male patient, on 2 L nasal cannula, fairly comfortable in no apparent distress. HEAD: Normocephalic. EYES: Normal reaction of pupils, equal size. NOSE: Clear with pink turbinates. THROAT: No erythema or exudates. NECK: No masses, no JVD. CHEST: No chest wall deformity. LUNGS: Equal air entry with faint crackles in the right lung base. Absent breath sounds on the left.. CVS: S1 and S2 normal with no audible murmur, regular rhythm. ABDOMEN: No hepatosplenomegaly, normal bowel sounds, no guarding or rigidity. SPINE: No scoliosis or deformity SKIN: No rashes CENTRAL NERVOUS SYSTEM: No focal deficits, tone is normal in all 4 extremities. EXTREMITIES: There is trace peripheral edema. No clubbing, no cyanosis. Peripheral pulses are intact. Results - Laboratory Findings CBC and BMP: 03/18/23 10:32 03/18/23 10:32 PT/INR, D-dimer PT 10.5 sec (9.0-12.0) 03/18/23 10:32 INR 1.0 (<1.2) 03/18/23 10:32 Abnormal lab findings: Abnormal Labs 03/18/23 03/18/23 03/18/23 10:32 10:32 10:32 WBC 20.4 H Hgb 9.3 L Hct 31.6 L MCV 66.2 L MCH 19.5 L MCHC 29.4 L RDW 16.3 H Neutrophils # 16.7 H Monocytes # 2.2 H APTT 21.9 L BUN 39 H Total Bilirubin 2.7 H - Diagnostic Findings Chest x-ray: image reviewed Assessment and Plan Assessment: Dyspnea secondary to an acute exacerbation of diastolic congestive heart failure History of left pneumonectomy back in 2008 due to non-small cell lung cancer History of atrial fibrillation, and related with Eliquis Permanent pacemaker implantation History of hypertension Hypothyroidism Former smoker History of hypertension Hyperlipidemia Hypothyroidism Plan: The patient was seen and evaluated Chest x-ray, labs and medications reviewed Continue with IV diuretics Titrate the FiO2 as tolerated Continue Zosyn for now Check a pro-calcitonin We will continue to follow and make further recommendations based on his cli nical status I have personally seen and examined the patient, performed the documentation and the assessment and plan as written. Number of minutes spent on the visit: 20.
[2023-03-18] MEDS: APIXABAN 5 MG TAB PO SCH (21:39)
[2023-03-18] MEDS: ATORVASTATIN 80 MG TAB PO SCH (21:40)
[2023-03-18] MEDS: FUROSEMIDE 10 MG/ML 4 ML VIAL IV SCH (21:40)
[2023-03-18] MEDS: PIPERACILLIN-TAZOBACTAM 3.375 GM in SODIUM CHLORIDE 0.9% 100 ML IVPB SCH (21:40)
[2023-03-18] MEDS: traZODone HCL 100 MG TAB PO SCH (21:40)
[2023-03-19] MEDS: PIPERACILLIN-TAZOBACTAM 3.375 GM in SODIUM CHLORIDE 0.9% 100 ML IVPB SCH (04:23)
[2023-03-19 04:32] LABS: Mycoplasma IgG Antibody (EIA) 0.49 INDEX (<=0.90); Mycoplasma IgM Antibody 0.52 INDEX (<=0.90)
[2023-03-19] MEDS: PANTOPRAZOLE 40 MG TABLET PO SCH (06:38)
[2023-03-19] MEDS: LEVOTHYROXINE 88 MCG TAB PO SCH (06:39)
[2023-03-19 08:45] LABS: Anisocytosis Slight; Basophils # (A) 0.1 k/uL (0-0.2); Basophils % (A) 0 %; Eosinophils # (A) 0.1 k/uL (0-0.7); Eosinophils % (A) 0 %; HCT 29.5 % (39.0-53.0); HGB 8.9 gm/dL (13.0-17.5); Hypochromasia Marked; Lymphocytes # (A) 1.5 k/uL (1.0-4.8); Lymphocytes % (A) 7 %; MCH 19.6 pg (25.0-35.0); MCHC 30.2 g/dL (31.0-37.0); Mean Platelet Volume 9.5; Microcytosis Marked; Monocytes # (A) 4.1 k/uL (0-1.0); Monocytes % (A) 19 %; Neutrophils # (A) 15.8 k/uL (1.3-7.7); Neutrophils % (A) 72 %; Platelet Count 225 k/uL (150-450); Poikilocytosis Slight; RBC 4.53 m/uL (4.30-5.90); RDW 16.2 % (11.5-15.5); WBC 22.1 k/uL (3.8-10.6)
[2023-03-19] MEDS: IPRATROPIUM-ALBUTEROL 3 ML NEB INHALATION SCH ×4 (08:48→19:05)
[2023-03-19 08:50] LABS: ALT 14 U/L (4-49); AST 24 U/L (17-59); African American GFR (CKD) 67 (>60 ml/min/1.73 sqM); Albumin 4.1 g/dL (3.5-5.0); Alkaline Phosphatase 69 U/L (38-126); Anion Gap 14 mmol/L; Blood Urea Nitrogen 34 mg/dL (9-20); Calcium 8.4 mg/dL (8.4-10.2); Carbon Dioxide 29 mmol/L (22-30); Chloride 97 mmol/L (98-107); Glucose 82 mg/dL (74-99); Non-African American GFR(CKD) 58 (>60 ml/min/1.73 sqM); Potassium 3.6 mmol/L (3.5-5.1); Sodium 140 mmol/L (137-145); Total Bilirubin 3.4 mg/dL (0.2-1.3); Total Protein 6.9 g/dL (6.3-8.2)
[2023-03-19] MEDS: METOPROLOL SUCCINATE (ER) 100 MG TAB.ER.24H PO SCH (10:12)
[2023-03-19] MEDS: FUROSEMIDE 10 MG/ML 4 ML VIAL IV SCH ×2 (10:12→20:57)
[2023-03-19] MEDS: APIXABAN 5 MG TAB PO SCH ×2 (10:12→20:48)
[2023-03-19] MEDS: MAGNESIUM OXIDE 400 MG TAB PO SCH (10:12)
[2023-03-19] MEDS: DAPAGLIFLOZIN PROPANEDIOL 5 MG TABLET PO SCH (10:12)
--- NOTE | 2023-03-19 10:34 | XR ---
EXAMINATION TYPE: XR chest 2V DATE OF EXAM: 03/19/2023 COMPARISON: 03/18/2023 HISTORY: Shortness of breath TECHNIQUE: Frontal and lateral views of the chest are obtained. FINDINGS: Scattered senescent parenchymal changes noted. Hyperinflation compatible with COPD. Complete opacification left hemithorax is redemonstrated. Ill-defined areas of interstitial type opac ity right upper and right lower lobe persist although appear to be less conspicuous. Heart size is stable. Mediastinal structures are stable and grossly unremarkable. No evidence for hilar prominence. Degenerative changes dorsal spine. IMPRESSION: 1. Complete opacification left hemithorax is redemonstrated. Ill-defined areas of interstitial type o pacity right upper and right lower lobe persist although appear to be less conspicuous.
[2023-03-19] MEDS: AZITHROMYCIN 500 MG in SODIUM CHLORIDE 0.9% 250 ML IVPB SCH (11:17)
--- NOTE | 2023-03-19 11:56 | P.PN ---
Subjective Progress Note Date: 03/19/23 Principal diagnosis: Acute exacerbation of chronic diastolic congestive heart failure This is a very pleasant 77-year-old male patient with a known history of diabetes mellitus, hypothyroidism, hyperlipidemia, atrial fibrillation anticoagulated with Eliquis, permanent pacemaker implantation, lung cancer with previous left-sided pneumonectomy back in 2008. He had been having complaints of increasing shortness of breath over the past several several days. He was seen in the emergency department on 03/16/2023 and was treated for congestive heart failure with 80 mg of Lasix and to follow up with Dr. Oglesby in 1 week. He re-presented to the emergency room today with continued shortness of breath. Today's chest x-ray actually shows significant improvement in aeration of the right lung with some residual airspace disease. Evidence of COPD and chronic postpneumonectomy changes on the left. White count 20.4. Hemoglobin 9.3. Platelets 253. Sodium 141. Potassium 4.6. Bicarb 24. BUN 39. Creatinine 1.04. AST 27. ALT 15. Troponin 0.16. ProBNP 3170. Coronavirus by PCR not detected. He is seen today in consultation in the emergency department. He's currently sitting up in a stretcher. Awake and alert in no acute distress. Maintaining O2 saturations up to 100% on 2 L/m per nasal cannula. He is afebrile. Hemodynamically stable. He is short of breath with exertion. Short of breath with minimal conversation. No cough or congestion. No chills. No hemoptysis. He's been initiated on Lasix 40 mg IV every 12 hours. Patient was reevaluated today on 03/19/23 patient is doing much better today, breathing a lot easier. Remains on nasal cannula at 2 L but his O2 saturation is 98-99%. Chest x-ray is showing definite improvement in his right inters titial edema, clinically the patient is great, and his chest x-ray has dramatically improved over the last few days. Patient does have W scan of 22.1 hemoglobin of 8.9, basic metabolic profile is normal renal profile showed slight rise in his creatinine up to 1.20. Pro calcitonin level is 0.1 which is considered not elevated considering normal is 0.09 not to mention the patient is showing significant improvement clinically and radiographically. And his BNP level on admission was 3170 Objective - Vital Signs Vital signs: Vital Signs Temp 97.9 F 03/19/23 08:00 Pulse 80 03/19/23 09:01 Resp 16 03/19/23 08:00 BP 121/61 03/19/23 08:00 Pulse Ox 98 03/19/23 08:48 FiO2 28 03/19/23 08:48 Intake & Output 03/18/23 03/19/23 03/19/23 18:59 06:59 18:59 Intake Total 118 Output Total 350 Balance -350 118 Weight 58.967 kg Intake: Oral 118 Output: Urine 350 Other: Voiding Method Urinal Urinal # Voids 3 - Exam Physical Exam: Revealed a 77-year-old white male in no distress on 2 L nasal cannula Head: Atraumatic normocephalic HEENT:[Neck is supple.] [No neck masses.] [No thyromegaly.] [No JVD.] Chest: [Diminished breath sound on the left side, clear breath sounds on the right side. Cardiac Exam: [Normal S1 and S2, no S3 gallop, no murmur.] Abdomen: [Soft, nontender, no megaly, no rebound, no guarding, normal bowel sounds.] Extremities: [No clubbing, no edema, no cyanosis.] Neurological Exam: [No focal neurologic deficit.] Alert oriented 3 Psychiatric: Normal mood affect and normal mental status examination - Labs CBC & Chem 7: 03/19/23 07:16 03/19/23 07:16 Labs: Abnormal Lab Results - Last 24 Hours (Table) 03/18/23 03/19/23 03/19/23 Range/Units 21:59 07:16 07:16 WBC 22.1 H (3.8-10.6) k/uL Hgb 8.9 L (13.0-17.5) gm/dL Hct 29.5 L (39.0-53.0) % MCV 65.0 L (80.0-100.0) fL MCH 19.6 L (25.0-35.0) pg MCHC 30.2 L (31.0-37.0) g/dL RDW 16.2 H (11.5-15.5) % Neutrophils # 15.8 H (1.3-7.7) k/uL Monocytes # 4.1 H (0-1.0) k/uL Chloride 97 L (98-107) mmol/L BUN 34 H (9-20) mg/dL Total Bilirubin 3.4 H (0.2-1.3) mg/dL Procalcitonin 0.10 H (0.02-0.09) ng/mL Assessment and Plan Assessment: Impression:Dyspnea secondary to an acute exacerbation of diastolic congestive heart failure History of left pneumonectomy back in 2008 due to non-small cell lung cancer History of atrial fibrillation, and related with Eliquis Permanent pacemaker implantation History of hypertension Hypothyroidism Former smoker History of hypertension Hyperlipidemia Hypothyroidism Recommendation: Continue diuretics Continue bronchodilators. Discontinue Zosyn and start the patient on oral Augmentin for 5 days Consider discharge planning if cleared by other consultants on the case. We will continue to follow in the meantime Time with Patient: Less than 30
--- NOTE | 2023-03-19 14:49 | P.HPIM ---
History of Present Illness H&P Date: 03/18/23 Chief Complaint: Acute diastolic heart failure/Pneumonia HISTORY OF PRESENT ILLNESS: This is a 77-year-old male patient of mine with past medical history of non-small cell lung cancer diagnosed in 2009 status post lobectomy, remote history of tobacco use, remote history of alcohol abuse, alcoholic peripheral neuropathy, hypertension, coronary artery disease, paroxysmal atrial fibrillation on eliquis, history of tachybradycardia syndrome status post pacemaker implantation, patient was seen in the ER few days ago with increased shortness of breath, CXR was ok at that time with minimally elevated BNP patient was given Lasix 40 mg IVP and he was sent home he was 96 % on RA and was supposed to see me in the office in few days, unfortunately patient woke up in the morning today with increased shortness of breath, became very anxious and he called EMS who brought him to the ER at [facility], his CXR was read as improvement in the right lung areation with possible pneumonitis in the left lower lobe, and cardiomegaly, he was started on O2 , Zosyn and Zithromax and was placed on lasix 40 mg IVP Q12 hours and was admitted to the hospital for evaluation and treatment, pulmonary consult was obtained. REVIEW OF SYSTEMS: Constitutional: No documented fever, no chills, no night sweats. positive for weight change. positive for weakness, fatigue or lethargy. No daytime sleepiness. HEENT: No headache. No blurred vision or double vision, no loss of vision. very hard of Hearing, no ringing in the ears, no dizziness. No nasal drainage or congestion. No epistaxis. No sore throat. Lungs: positive for shortness of breath, occasional cough, no sputum production. no wheezing. Cardiovascular: No chest pain, positive for lower extremity edema. No palpitations. No paroxysmal nocturnal dyspnea. positive for orthopnea, occasional dizziness Abdominal: Reports no abdominal pain. No nausea, vomiting. No diarrhea. No constipation. No bloody or tarry stools reports loss of appetite. Genitourinary: No dysuria, increased frequency, urgency. No urinary retention. Musculoskeletal: positive for myalgias. positive for muscle weakness, positive for gait dysfunction, positive for frequent falls, positive for back pain and neck pain. Integumentary: No wounds, no lesions. No rash or pruritus. Neurologic: No aphasia. No facial droop. No change in mentation. No head injury. No headache. No paralysis. No paresthesia. Psychiatric: positive for depression, positive for anxiety. No mood swings. Endocrine: No abnormal blood sugars. No weight change. PAST MEDICAL HISTORY: Hypertension Hyperlipidemia Supraventricular tachycardia Malignant neoplasm of the prostate Neoplasm of the left bronchus Paroxysmal atrial fibrillation on Coumadin Alcoholic peripheral neuropathy Sick sinus syndrome Hypothyroidism PAST SURGICAL HISTORY: Left and right groin hernia repair Lung left resection in 2008 Permanent pacemaker 07/28 I&D left leg hematoma SOCIAL HISTORY: Patient has history of smoking and quit 5-10 years ago. No current alcohol use, illicit drug use, marijuana use. Patient does have history of alcohol abuse in the past. FAMILY HISTORY: Father at age 71 from a myocardial infarction. Mother at age 92 from old age. Patient has 3 brothers and 2 brothers are living with no major medical problems, one brother from stomach cancer. Patient has one sister living with history of hypertension hyperlipidemia. PHYSICAL EXAMINATION: General: This is a 77-year-old male resting in bed in no distress HEENT: Head is atraumatic, normocephalic, pupils were equal round reactive to light and recommendation, extraocular muscle movement were intact, sclera nonicteric, conjunctivae were pale, mucous membranes of the mouth are somewhat dry. Neck: Supple, no JVP, normal carotid upstroke bilaterally, no lymphadenopathy. Chest: Decreased breath sounds at the bases, no wheezes, no chest wall tenderness, no intercostal retractions. Heart: First heart sound is normal, second heart sound is normal, systolic ejection murmur 2/6 located at the left sternal border. there is PPM in the left upper precordium Abdomen: Soft, nontender, nondistended, positive bowel sounds. Extremities: There is +1 edema no calf tenderness DP +1 bilaterally Neurologic examination: Patient is awake alert and oriented 3, cranial nerves II-12 appear grossly intact, muscle power were 4 out of 5 in upper extremities and 3 out of 5 in bilateral lower extremities, deep tendon reflexes normal bilaterally. ASSESSMENT AND PLAN: 1. Right lower lobe pneumonia left pneumonitis. we will check sputum cultures and urine legionella antigen. Zosyn and Zithromax , Duoneb qid and Pulmicort 1 mg Neb bid, Pulmonary consult. 2. Acute on chronic diastolic heart failure. we will continue with Furosemide 40 mg IVP Q 12 H and we will continue with Farxiga 5 mg po daily 3. Leukocytosis with microcytosis and from cytopenia. Patient was recently evaluated by oncology, MGUS workup was negative and patient to have a follow-up in the office. 4. History of non-small cell lung cancer in 2008 status post left pneumonectomy. 5. Hypertension and hypertensive cardiovascular disease. Continue Toprol-XL 100 mg daily 6. Chronic diastolic heart failure. Metoprolol 100 mg po daily, lasix ad farxiga as above 7. Paroxysmal atrial fibrillation. Continue patient on eliquis and we will continue with Metoprolol ER 100 mg po daily. 8. History of sick sinus syndrome status post pacemaker implantation, stable. 9. Alcoholic peripheral neuropathy. stable. 10. Hypothyroidism. Continue levothyroxine 88 g daily. 11. GI prophylaxis. Protonix 40 mg daily. 12. DVT prophylaxis. Continue patient on eliquis. 13. Admit to inpatient estimated length of stay is 2 midnights Past Medical History Past Medical History: Coronary Artery Disease (CAD), Heart Failure, COPD, Hypertension, Thyroid Disorder Additional Past Medical History / Comment(s): vertigo Last Myocardial Infarction Date:: 2013 History of Any Multi-Drug Resistant Organisms: None Reported Past Surgical History: Hernia Repair, Pacemaker Additional Past Surgical History / Comment(s): Left lung removed Past Anesthesia/Blood Transfusion Reactions: No Reported Reaction Type of Cardiac Device: Unknown Device Placement Date:: June, Past Psychological History: No Psychological Hx Reported Smoking Status: Former smoker Past Alcohol Use History: None Reported Past Drug Use History: None Reported - Past Family History Father Family Medical History: Memory Impairment Additional Family Medical History / Comment(s): Father at age 71 from a myocardial infarction. Mother Family Medical History: No Reported History Additional Family Medical History / Comment(s): Mother at age 92 from old age. Brother(s) Additional Family Medical History / Comment(s): Patient has 3 brothers alive with no major medical problems. One brother is dying from stomach cancer. Sister(s) Additional Family Medical History / Comment(s): Patient has one sister and she is alive. History of hypertension and hyperlipidemia. Medications and Allergies Home Medications Medication Instructions Recorded Confirmed Type Atorvastatin [Lipitor] 80 mg PO HS 06/11/20 03/18/23 History Magnesium Oxide 400 mg PO DAILY 12/23/20 03/18/23 History Apixaban [Eliquis] 5 mg PO BID #60 tab 10/22/21 03/18/23 Rx Levothyroxine Sodium [Synthroid] 88 mcg PO DAILY 08/21/22 03/18/23 History traZODone HCL [Desyrel] 100 mg PO HS 08/21/22 03/18/23 History Metoprolol Succinate (ER) [Toprol 100 mg PO DAILY 09/21/22 03/18/23 History XL] Bumetanide [Bumex] 2 mg PO DAILY 03/18/23 03/18/23 History Dapagliflozin Propanediol [Farxiga] 5 mg PO DAILY 03/18/23 03/18/23 History Allergies Allergy/AdvReac Type Severity Reaction Status Date / Time No Known Allergies Allergy Verified 03/18/23 12:31 Physical Exam Vitals: Vital Signs Temp Pulse Resp BP Pulse Ox 03/18/23 12:38 71 20 144/57 97 03/18/23 10:05 98.3 F 97 20 155/73 99 Intake and Output 03/17/23 03/18/23 03/18/23 22:59 06:59 14:59 Other: Weight 58.967 kg Results CBC & Chem 7: 03/19/23 07:16 03/19/23 07:16 Labs: Abnormal Lab Results - Last 24 Hours (Table) 03/18/23 03/18/23 03/18/23 Range/Units 10:32 10:32 10:32 WBC 20.4 H (3.8-10.6) k/uL Hgb 9.3 L (13.0-17.5) gm/dL Hct 31.6 L (39.0-53.0) % MCV 66.2 L (80.0-100.0) fL MCH 19.5 L (25.0-35.0) pg MCHC 29.4 L (31.0-37.0) g/dL RDW 16.3 H (11.5-15.5) % Neutrophils # 16.7 H (1.3-7.7) k/uL Monocytes # 2.2 H (0-1.0) k/uL APTT 21.9 L (22.0-30.0) sec BUN 39 H (9-20) mg/dL Total Bilirubin 2.7 H (0.2-1.3) mg/dL
--- NOTE | 2023-03-19 14:51 | P.PN ---
Subjective Progress Note Date: 03/19/23 HISTORY OF PRESENT ILLNESS: This is a 77-year-old male patient of mine with past medical history of non-small cell lung cancer diagnosed in 2009 status post lobectomy, remote history of tobacco use, remote history of alcohol abuse, alcoholic peripheral neuropathy, hypertension, coronary artery disease, paroxysmal atrial fibrillation on eliquis, history of tachybradycardia syndrome status post pacemaker implantation, patient was seen in the ER few days ago with increased shortness of breath, CXR was ok at that time with minimally elevated BNP patient was given Lasix 40 mg IVP and he was sent home he was 96 % on RA and was supposed to see me in the office in few days, unfortunately patient woke up in the morning today with increased shortness of breath, became very anxious and he called EMS who brought him to the ER at [facility], his CXR was read as improvement in the right lung areation with possible pneumonitis in the left lower lobe, and cardiomegaly, he was started on O2 , Zosyn and Zithromax and was placed on lasix 40 mg IVP Q12 hours and was admitted to the hospital for evaluation and treatment, pulmonary consult was obtained. 03/19: Patient is sitting up in bed is feeling better, continues to be on O2 , we will continue with current treatment plan with IV ABX and Diuretics with furosemide along with Farxiga we will monitor input and output and daily weight, PT and OT to see patient along with foster care social worker for discharge planning, REVIEW OF SYSTEMS: Constitutional: No documented fever, no chills, no night sweats. positive for weight change. positive for weakness, fatigue or lethargy. No daytime sle epiness. HEENT: No headache. No blurred vision or double vision, no loss of vision. very hard of Hearing, no ringing in the ears, no dizziness. No nasal drainage or congestion. No epistaxis. No sore throat. Lungs: positive for shortness of breath, occasional cough, no sputum production. no wheezing. Cardiovascular: No chest pain, positive for lower extremity edema. No palpitations. No paroxysmal nocturnal dyspnea. positive for orthopnea, occasional dizziness Abdominal: Reports no abdominal pain. No nausea, vomiting. No diarrhea. No constipation. No bloody or tarry stools reports loss of appetite. Genitourinary: No dysuria, increased frequency, urgency. No urinary retention. Musculoskeletal: positive for myalgias. positive for muscle weakness, positive for gait dysfunction, positive for frequent falls, positive for back pain and neck pain. Integumentary: No wounds, no lesions. No rash or pruritus. Neurologic: No aphasia. No facial droop. No change in mentation. No head injury. No headache. No paralysis. No paresthesia. Psychiatric: positive for depression, positive for anxiety. No mood swings. Endocrine: No abnormal blood sugars. No weight change. PHYSICAL EXAMINATION: General: This is a 77-year-old male resting in bed in no distress HEENT: Head is atraumatic, normocephalic, pupils were equal round reactive to light and recommendation, extraocular muscle movement were intact, sclera nonicteric, conjunctivae were pale, mucous membranes of the mouth are somewhat dry. Neck: Supple, no JVP, normal carotid upstroke bilaterally, no lymphadenopathy. Chest: Decreased breath sounds at the bases, no wheezes, no chest wall tenderness, no intercostal retractions. Heart: First heart sound is normal, second heart sound is normal, systolic ejection murmur 2/6 located at the left sternal border. there is PPM in the left upper precordium Abdomen: Soft, nontender, nondistended, positive bowel sounds. Extremities: There is +1 edema no calf tenderness DP +1 bilaterally Neurologic examination: Patient is awake alert and oriented 3, cranial nerves II-12 appear grossly intact, muscle power were 4 out of 5 in upper extremities and 3 out of 5 in bilateral lower extremities, deep tendon reflexes normal bilaterally. ASSESSMENT AND PLAN: 1. Right lower lobe pneumonia left pneumonitis. we will check sputum cultures and urine legionella antigen. Zosyn and Zithromax , Duoneb qid and Pulmicort 1 mg Neb bid, Pulmonary consult. 2. Acute on chronic diastolic heart failure. we will continue with Furosemide 40 mg IVP Q 12 H and we will continue with Farxiga 5 mg po daily 3. Leukocytosis with microcytosis and from cytopenia. Patient was recently evaluated by oncology, MGUS workup was negative and patient to have a follow-up in the office. 4. History of non-small cell lung cancer in 2009 status post left pneumonectomy. 5. Hypertension and hypertensive cardiovascular disease. Continue Toprol-XL 100 mg daily 6. Chronic diastolic heart failure. Metoprolol 100 mg po daily, lasix ad farxiga as above 7. Paroxysmal atrial fibrillation. Continue patient on eliquis and we will continue with Metoprolol ER 100 mg po daily. 8. History of sick sinus syndrome status post pacemaker implantation, stable. 9. Alcoholic peripheral neuropathy. stable. 10. Hypothyroidism. Continue levothyroxine 88 g daily. 11. GI prophylaxis. Protonix 40 mg daily. 12. DVT prophylaxis. Continue patient on eliquis. 13. PT/OT evaluation Objective - Vital Signs Vital signs: Vital Signs Temp 97.3 F L 03/19/23 12:44 Pulse 85 03/19/23 12:44 Resp 16 03/19/23 12:44 BP 102/55 03/19/23 12:44 Pulse Ox 97 03/19/23 12:44 FiO2 28 03/19/23 08:48 Intake & Output 03/18/23 03/19/23 03/19/23 18:59 06:59 18:59 Intake Total 118 Output Total 350 Balance -350 118 Weight 58.967 kg 58.967 kg Intake: Oral 118 Output: Urine 350 Other: Voiding Method Urinal Urinal # Voids 3 1 - Labs CBC & Chem 7: 03/19/23 07:16 03/19/23 07:16 Labs: Abnormal Lab Results - Last 24 Hours (Table) 03/18/23 03/19/23 03/19/23 Range/Units 21:59 07:16 07:16 WBC 22.1 H (3.8-10.6) k/uL Hgb 8.9 L (13.0-17.5) gm/dL Hct 29.5 L (39.0-53.0) % MCV 65.0 L (80.0-100.0) fL MCH 19.6 L (25.0-35.0) pg MCHC 30.2 L (31.0-37.0) g/dL RDW 16.2 H (11.5-15.5) % Neutrophils # 15.8 H (1.3-7.7) k/uL Monocytes # 4.1 H (0-1.0) k/uL Chloride 97 L (98-107) mmol/L BUN 34 H (9-20) mg/dL Total Bilirubin 3.4 H (0.2-1.3) mg/dL Procalcitonin 0.10 H (0.02-0.09) ng/mL
[2023-03-19] MEDS: ATORVASTATIN 80 MG TAB PO SCH (20:48)
[2023-03-19] MEDS: traZODone HCL 100 MG TAB PO SCH (20:48)
[2023-03-19] MEDS: AMOXIC-POT CLAV 875-125MG 1 EACH TAB PO SCH (20:48)
[2023-03-20] MEDS: ACETAMINOPHEN TAB 325 MG TAB PO PRN (02:36)
[2023-03-20] MEDS: LEVOTHYROXINE 88 MCG TAB PO SCH (06:08)
[2023-03-20] MEDS: IPRATROPIUM-ALBUTEROL 3 ML NEB INHALATION SCH ×4 (07:38→18:39)
[2023-03-20 08:03] LABS: Anisocytosis Slight; Basophils % (A) 0 %; Eosinophils # (A) 0.1 k/uL (0-0.7); Eosinophils % (A) 1 %; HCT 28.6 % (39.0-53.0); HGB 8.4 gm/dL (13.0-17.5); Hypochromasia Marked; Lymphocytes # (A) 1.1 k/uL (1.0-4.8); Lymphocytes % (A) 5 %; MCH 19.7 pg (25.0-35.0); MCHC 29.3 g/dL (31.0-37.0); MCV 67.4 fL (80.0-100.0); Mean Platelet Volume 10.6; Microcytosis Marked; Monocytes # (A) 4.9 k/uL (0-1.0); Monocytes % (A) 21 %; Neutrophils % (A) 70 %; Platelet Count 193 k/uL (150-450); RBC 4.25 m/uL (4.30-5.90); RDW 16.2 % (11.5-15.5); WBC 22.8 k/uL (3.8-10.6)
[2023-03-20 08:04] LABS: ALT 12 U/L (4-49); AST 23 U/L (17-59); African American GFR (CKD) 74 (>60 ml/min/1.73 sqM); Albumin 3.6 g/dL (3.5-5.0); Albumin/Globulin Ratio 1.4; Alkaline Phosphatase 62 U/L (38-126); Anion Gap 9 mmol/L; Blood Urea Nitrogen 32 mg/dL (9-20); Calcium 7.7 mg/dL (8.4-10.2); Carbon Dioxide 32 mmol/L (22-30); Chloride 96 mmol/L (98-107); Globulin 2.5 g/dL; Glucose 81 mg/dL (74-99); Non-African American GFR(CKD) 64 (>60 ml/min/1.73 sqM); Potassium 3.4 mmol/L (3.5-5.1); Sodium 137 mmol/L (137-145); Total Bilirubin 3.5 mg/dL (0.2-1.3); Total Protein 6.1 g/dL (6.3-8.2)
[2023-03-20] MEDS: DAPAGLIFLOZIN PROPANEDIOL 5 MG TABLET PO SCH (08:23)
[2023-03-20] MEDS: PANTOPRAZOLE 40 MG TABLET PO SCH (08:23)
[2023-03-20] MEDS: MAGNESIUM OXIDE 400 MG TAB PO SCH (08:23)
[2023-03-20] MEDS: AZITHROMYCIN 500 MG in SODIUM CHLORIDE 0.9% 250 ML IVPB SCH (08:23)
[2023-03-20] MEDS: AMOXIC-POT CLAV 875-125MG 1 EACH TAB PO SCH ×2 (08:23→20:36)
[2023-03-20] MEDS: APIXABAN 5 MG TAB PO SCH ×2 (08:23→20:35)
[2023-03-20 08:48] LABS: Poikilocytosis (M) Present
[2023-03-20] MEDS ORDERED: POTASSIUM CHLORIDE ER 20 MEQ TAB.ER PO STA (11:13)
[2023-03-20] MEDS: METOPROLOL SUCCINATE (ER) 100 MG TAB.ER.24H PO SCH (11:40)
--- NOTE | 2023-03-20 11:59 | P.PN ---
Subjective Progress Note Date: 03/20/23 This is a very pleasant 77-year-old male patient with a known history of diabetes mellitus, hypothyroidism, hyperlipidemia, atrial fibrillation anticoagulated with Eliquis, permanent pacemaker implantation, lung cancer with previous left-sided pneumonectomy back in 2008. He had been having complaints of increasing shortness of breath over the past several several days. He was seen in the emergency department on 03/16/2023 and was treated for congestive heart failure with 80 mg of Lasix and to follow up with Dr. Oglesby in 1 week. He re-presented to the emergency room today with continued shortness of breath. Today's chest x-ray actually shows significant improvement in aeration of the right lung with some residual airspace disease. Evidence of COPD and chronic postpneumonectomy changes on the left. White count 20.4. Hemoglobin 9.3. Platelets 253. Sodium 141. Potassium 4.6. Bicarb 24. BUN 39. Creatinine 1.04. AST 27. ALT 15. Troponin 0.16. ProBNP 3170. Coronavirus by PCR not d etected. He is seen today in consultation in the emergency department. He's currently sitting up in a stretcher. Awake and alert in no acute distress. Maintaining O2 saturations up to 100% on 2 L/m per nasal cannula. He is afebrile. Hemodynamically stable. He is short of breath with exertion. Short of breath with minimal conversation. No cough or congestion. No chills. No hemoptysis. He's been initiated on Lasix 40 mg IV every 12 hours. Patient was reevaluated today on 03/19/23 patient is doing much better today, breathing a lot easier. Remains on nasal cannula at 2 L but his O2 saturation is 98-99%. Chest x-ray is showing definite improvement in his right interstitial edema, clinically the patient is great, and his chest x-ray has dramatically improved over the last few days. Patient does have W scan of 22.1 hemoglobin of 8.9, basic metabolic profile is normal renal profile showed slight rise in his creatinine up to 1.20. Pro calcitonin level is 0.1 which is considered not elevated considering normal is 0.09 not to mention the patient is showing significant improvement clinically and radiographically. And his BNP level on admission was 3170 The patient was seen today 03/20/2023 in follow-up on the regular medical floor. He is sitting up in bed. Awake and alert in no acute distress. He is maintaining O2 saturations up to 100% on 2 L/m per nasal cannula. He's been afebrile. Hemodynamically stable. Cultures reveal no growth. White count 22.8. Hemoglobin 8.4. Platelets 193. Sodium 137. Potassium 3.4. Bicarb 32. BUN 32. Creatinine 1.10. Pro calcitonin 0.10. He remains on Augmentin, bronchodilators. Anticoagulated with Eliquis. Objective - Vital Signs Vital signs: Vital Signs Temp 97.7 F 03/20/23 08:50 Pulse 80 03/20/23 11:09 Resp 18 03/20/23 08:50 BP 94/59 03/20/23 11:40 Pulse Ox 100 03/20/23 08:50 FiO2 28 03/19/23 08:48 Intake & Output 03/19/23 03/20/23 03/20/23 18:59 06:59 18:59 Intake Total 118 Output Total 200 Balance 118 -200 Weight 58.967 kg 91 kg Intake: Oral 118 Output: Urine 200 Other: Voiding Method Urinal Urinal Urinal # Voids 1 1 - Exam GENERAL EXAM: Alert, frail, 77-year-old male patient, on 2 L nasal cannula, comfortable in no apparent distress. HEAD: Normocephalic. EYES: Normal reaction of pupils, equal size. NOSE: Clear with pink turbinates. THROAT: No erythema or exudates. NECK: No masses, no JVD. CHEST: No chest wall deformity. LUNGS: Equal air entry with faint crackles in the right lung base. Absent breath sounds on the left. CVS: S1 and S2 normal with no audible murmur, regular rhythm. ABDOMEN: No hepatosplenomegaly, normal bowel sounds, no guarding or rigidity. SPINE: No scoliosis or deformity SKIN: No rashes CENTRAL NERVOUS SYSTEM: No focal deficits, tone is normal in all 4 extremities. EXTREMITIES: There is trace peripheral edema. No clubbing, no cyanosis. Peripheral pulses are intact. - Labs CBC & Chem 7: 03/20/23 06:21 03/20/23 06:21 Labs: Abnormal Lab Results - Last 24 Hours (Table) 03/20/23 03/20/23 Range/Units 06:21 06:21 WBC 22.8 H (3.8-10.6) k/uL RBC 4.25 L (4.30-5.90) m/uL Hgb 8.4 L (13.0-17.5) gm/dL Hct 28.6 L (39.0-53.0) % MCV 67.4 L (80.0-100.0) fL MCH 19.7 L (25.0-35.0) pg MCHC 29.3 L (31.0-37.0) g/dL RDW 16.2 H (11.5-15.5) % Neutrophils # 16.0 H (1.3-7.7) k/uL Monocytes # 4.9 H (0-1.0) k/uL Potassium 3.4 L (3.5-5.1) mmol/L Chloride 96 L (98-107) mmol/L Carbon Dioxide 32 H (22-30) mmol/L BUN 32 H (9-20) mg/dL Calcium 7.7 L (8.4-10.2) mg/dL Total Bilirubin 3.5 H (0.2-1.3) mg/dL Total Protein 6.1 L (6.3-8.2) g/dL Microbiology - Last 24 Hours (Table) 03/18/23 12:28 Blood Culture - Preliminary Blood 03/18/23 11:42 Blood Culture - Preliminary Blood Assessment and Plan Assessment: Dyspnea secondary to an acute exacerbation of diastolic congestive heart failure History of left pneumonectomy back in 2008 due to non-small cell lung cancer History of atrial fibrillation, anticoagulated with Eliquis Permanent pacemaker implantation History of hypertension Hypothyroidism Former smoker History of hypertension Hyperlipidemia Hypothyroidism Plan: The patient was seen and evaluated Labs and medications reviewed Titrate the FiO2 as tolerated Continue Augmentin Plan is for subacute rehab at discharge We will continue to follow I have personally seen and examined the patient, performed the documentation and the assessment and plan as written. Number of minutes spent on the visit: 33.
[2023-03-20] MEDS: FUROSEMIDE 10 MG/ML 4 ML VIAL IV SCH (12:08)
--- NOTE | 2023-03-20 13:04 | P.PN ---
Subjective Progress Note Date: 03/20/23 HISTORY OF PRESENT ILLNESS: This is a 77-year-old male patient of mine with past medical history of non-small cell lung cancer diagnosed in 2009 status post lobectomy, remote history of tobacco use, remote history of alcohol abuse, alcoholic peripheral neuropathy, hypertension, coronary artery disease, paroxysmal atrial fibrillation on eliquis, history of tachybradycardia syndrome status post pacemaker implantation, patient was seen in the ER few days ago with increased shortness of breath, CXR was ok at that time with minimally elevated BNP patient was given Lasix 40 mg IVP and he was sent home he was 96 % on RA and was supposed to see me in the office in few days, unfortunately patient woke up in the morning today with increased shortness of breath, became very anxious and he called EMS who brought him to the ER at [facility], his CXR was read as improvement in the right lung areation with possible pneumonitis in the left lower lobe, and cardiomegaly, he was started on O2 , Zosyn and Zithromax and was placed on lasix 40 mg IVP Q12 hours and was admitted to the hospital for evaluation and treatment, pulmonary consult was obtained. 03/19: Patient is sitting up in bed is feeling better, continues to be on O2 , we will continue with current treatment plan with IV ABX and Diuretics with furosemide along with Farxiga we will monitor input and output and daily weight, PT and OT to see patient along with director social welfare for discharge planning. 03/20: Patient is sitting up in bed he continues to be generally weak, he is a bleeding using a walker, physical therapy has not seen the patient has, switch the patient to oral Bumex since his blood pressures a bit lower side, he appears to be at his dry weight, patient was switched oral Augmentin 875 mg orally twice every day, as the patient is cleared by physical therapy can be discharged home tomorrow morning. REVIEW OF SYSTEMS: Constitutional: No documented fever, no chills, no night sweats. positive for weight change. positive for weakness, fatigue or lethargy. No daytime sleepiness. HEENT: No headache. No blurred vision or double vision, no loss of vision. very hard of Hearing, no ringing in the ears, no dizziness. No nasal drainage or congestion. No epistaxis. No sore throat. Lungs: positive for shortness of breath, occasional cough, no sputum production. no wheezing. Cardiovascular: No chest pain, positive for lower extremity edema. No palpitations. No paroxysmal nocturnal dyspnea. positive for orthopnea, occasional dizziness Abdominal: Reports no abdominal pain. No nausea, vomiting. No diarrhea. No constipation. No bloody or tarry stools reports loss of appetite. Genitourinary: No dysuria, increased frequency, urgency. No urinary retention. Musculoskeletal: positive for myalgias. positive for muscle weakness, positive for gait dysfunction, positive for frequent falls, positive for back pain and neck pain. Integumentary: No wounds, no lesions. No rash or pruritus. Neurologic: No aphasia. No facial droop. No change in mentation. No head injury. No headache. No paralysis. No paresthesia. Psychiatric: positive for depression, positive for anxiety. No mood swings. Endocrine: No abnormal blood sugars. No weight change. PHYSICAL EXAMINATION: General: This is a 77-year-old male resting in bed in no distress HEENT: Head is atraumatic, normocephalic, pupils were equal round reactive to light and recommendation, extraocular muscle movement were intact, sclera nonict stephane, conjunctivae were pale, mucous membranes of the mouth are somewhat dry. Neck: Supple, no JVP, normal carotid upstroke bilaterally, no lymphadenopathy. Chest: Decreased breath sounds at the bases, no wheezes, no chest wall tenderness, no intercostal retractions. Heart: First heart sound is normal, second heart sound is normal, systolic ejection murmur 2/6 located at the left sternal border. there is PPM in the left upper precordium Abdomen: Soft, nontender, nondistended, positive bowel sounds. Extremities: There is +1 edema no calf tenderness DP +1 bilaterally Neurologic examination: Patient is awake alert and oriented 3, cranial nerves II-12 appear grossly intact, muscle power were 4 out of 5 in upper extremities and 3 out of 5 in bilateral lower extremities, deep tendon reflexes normal bilaterally. ASSESSMENT AND PLAN: 1. Right lower lobe pneumonia left pneumonitis. we will check sputum cultures and urine legionella antigen. Zosyn and Zithromax , Duoneb qid and Pulmicort 1 mg Neb bid, Pulmonary consult. 2. Acute on chronic diastolic heart failure. Back to his baseline, discontinue frusemide start the patient on Bumex 2 mg orally once every day, continue patient on Farxiga 5 mg once every day. 3. Leukocytosis with microcytosis and thrombocytopenia was recently evaluated by oncology, MGUS workup was negative and patient to have a follow-up in the office. 4. History of non-small cell lung cancer in 2008 status post left pneumonectom y. 5. Hypertension and hypertensive cardiovascular disease. Continue Toprol-XL 100 mg daily 6. Chronic diastolic heart failure. Metoprolol 100 mg po daily,we will switch t oral diuretics and we will continue to monitor BP very closely 7. Paroxysmal atrial fibrillation. Continue patient on eliquis and we will continue with Metoprolol ER 100 mg po daily. 8. History of sick sinus syndrome status post pacemaker implantation, stable. 9. Alcoholic peripheral neuropathy. stable. 10. Hypothyroidism. Continue levothyroxine 88 g daily. 11. GI prophylaxis. Protonix 40 mg daily. 12. DVT prophylaxis. Continue patient on eliquis. 13. PT/OT evaluation 14. Discharge in AM Objective - Vital Signs Vital signs: Vital Signs Temp 97.7 F 03/20/23 08:50 Pulse 80 03/20/23 11:09 Resp 18 03/20/23 08:50 BP 94/59 03/20/23 11:40 Pulse Ox 100 03/20/23 08:50 FiO2 28 03/19/23 08:48 Intake & Output 03/19/23 03/20/23 03/20/23 18:59 06:59 18:59 Intake Total 118 Output Total 200 Balance 118 -200 Weight 58.967 kg 91 kg Intake: Oral 118 Output: Urine 200 Other: Voiding Method Urinal Urinal Urinal # Voids 1 1 - Labs CBC & Chem 7: 03/20/23 06:21 03/20/23 06:21 Labs: Abnormal Lab Results - Last 24 Hours (Table) 03/20/23 03/20/23 Range/Units 06:21 06:21 WBC 22.8 H (3.8-10.6) k/uL RBC 4.25 L (4.30-5.90) m/uL Hgb 8.4 L (13.0-17.5) gm/dL Hct 28.6 L (39.0-53.0) % MCV 67.4 L (80.0-100.0) fL MCH 19.7 L (25.0-35.0) pg MCHC 29.3 L (31.0-37.0) g/dL RDW 16.2 H (11.5-15.5) % Neutrophils # 16.0 H (1.3-7.7) k/uL Monocytes # 4.9 H (0-1.0) k/uL Potassium 3.4 L (3.5-5.1) mmol/L Chloride 96 L (98-107) mmol/L Carbon Dioxide 32 H (22-30) mmol/L BUN 32 H (9-20) mg/dL Calcium 7.7 L (8.4-10.2) mg/dL Total Bilirubin 3.5 H (0.2-1.3) mg/dL Total Protein 6.1 L (6.3-8.2) g/dL Microbiology - Last 24 Hours (Table) 03/18/23 12:28 Blood Culture - Preliminary Blood 03/18/23 11:42 Blood Culture - Preliminary Blood
[2023-03-20] MEDS: traZODone HCL 100 MG TAB PO SCH (20:35)
[2023-03-20] MEDS: ATORVASTATIN 80 MG TAB PO SCH (20:36)
[2023-03-21] MEDS: LEVOTHYROXINE 88 MCG TAB PO SCH (06:41)
[2023-03-21 07:23] LABS: Basophils % (A) 0 %; Eosinophils # (A) 0.1 k/uL (0-0.7); Eosinophils % (A) 1 %; HCT 26.9 % (39.0-53.0); HGB 7.9 gm/dL (13.0-17.5); Hypochromasia Marked; Lymphocytes # (A) 1.2 k/uL (1.0-4.8); Lymphocytes % (A) 6 %; MCH 19.4 pg (25.0-35.0); MCHC 29.2 g/dL (31.0-37.0); MCV 66.2 fL (80.0-100.0); Mean Platelet Volume 8.8; Microcytosis Marked; Monocytes # (A) 4.6 k/uL (0-1.0); Monocytes % (A) 25 %; Neutrophils # (A) 12.1 k/uL (1.3-7.7); Neutrophils % (A) 65 %; Platelet Count 182 k/uL (150-450); RBC 4.06 m/uL (4.30-5.90); WBC 18.6 k/uL (3.8-10.6)
[2023-03-21] MEDS: IPRATROPIUM-ALBUTEROL 3 ML NEB INHALATION SCH ×4 (07:34→18:33)
[2023-03-21 07:47] LABS: ALT 12 U/L (4-49); AST 27 U/L (17-59); African American GFR (CKD) 86 (>60 ml/min/1.73 sqM); Albumin 3.4 g/dL (3.5-5.0); Albumin/Globulin Ratio 1.4; Alkaline Phosphatase 68 U/L (38-126); Anion Gap 9 mmol/L; Blood Urea Nitrogen 28 mg/dL (9-20); Calcium 7.4 mg/dL (8.4-10.2); Carbon Dioxide 28 mmol/L (22-30); Chloride 98 mmol/L (98-107); Globulin 2.4 g/dL; Glucose 83 mg/dL (74-99); Non-African American GFR(CKD) 74 (>60 ml/min/1.73 sqM); Potassium 3.9 mmol/L (3.5-5.1); Sodium 135 mmol/L (137-145); Total Bilirubin 3.8 mg/dL (0.2-1.3); Total Protein 5.8 g/dL (6.3-8.2)
[2023-03-21] MEDS: PANTOPRAZOLE 40 MG TABLET PO SCH (08:40)
[2023-03-21] MEDS: BUMETANIDE 1 MG TAB PO SCH (08:41)
[2023-03-21] MEDS: METOPROLOL SUCCINATE (ER) 100 MG TAB.ER.24H PO SCH (08:41)
[2023-03-21] MEDS: AMOXIC-POT CLAV 875-125MG 1 EACH TAB PO SCH ×2 (08:41→20:31)
[2023-03-21] MEDS: DAPAGLIFLOZIN PROPANEDIOL 5 MG TABLET PO SCH (08:41)
[2023-03-21] MEDS: MAGNESIUM OXIDE 400 MG TAB PO SCH (08:41)
[2023-03-21] MEDS: APIXABAN 5 MG TAB PO SCH ×2 (08:41→20:29)
[2023-03-21 08:59] LABS: Poikilocytosis (M) Present
[2023-03-21] MEDS ORDERED: SODIUM FERRIC GLUCONAT-SUCROSE 125 MG in SODIUM CHLORIDE 0.9% 100 ML IVPB ONE (09:45)
--- NOTE | 2023-03-21 10:48 | P.PN ---
Subjective Progress Note Date: 03/21/23 HISTORY OF PRESENT ILLNESS: This is a 77-year-old male patient of mine with past medical history of non-small cell lung cancer diagnosed in 2009 status post lobectomy, remote history of tobacco use, remote history of alcohol abuse, alcoholic peripheral neuropathy, hypertension, coronary artery disease, paroxysmal atrial fibrillation on eliquis, history of tachybradycardia syndrome status post pacemaker implantation, patient was seen in the ER few days ago with increased shortness of breath, CXR was ok at that time with minimally elevated BNP patient was given Lasix 40 mg IVP and he was sent home he was 96 % on RA and was supposed to see me in the office in few days, unfortunately patient woke up in the morning today with increased shortness of breath, became very anxious and he called EMS who brought him to the ER at [facility], his CXR was read as improvement in the right lung areation with possible pneumonitis in the left lower lobe, and cardiomegaly, he was started on O2 , Zosyn and Zithromax and was placed on lasix 40 mg IVP Q12 hours and was admitted to the hospital for evaluation and treatment, pulmonary consult was obtained. 03/19: Patient is sitting up in bed is feeling better, continues to be on O2 , we will continue with current treatment plan with IV ABX and Diuretics with furosemide along with Farxiga we will monitor input and output and daily weight, PT and OT to see patient along with social services designee for discharge planning. 03/20: Patient is sitting up in bed he continues to be generally weak, he is a bleeding using a walker, physical therapy has not seen the patient has, switch the patient to oral Bumex since his blood pressures a bit lower side, he appears to be at his dry weight, patient was switched oral Augmentin 875 mg orally twice every day, as the patient is cleared by physical therapy can be discharged home tomorrow morning. 03/21: Patient is sitting up in bed he continues to be generally weak, he appears to be more pale today his hemoglobin is down 7.9, per to have microcytic anemia likely iron deficiency anemia, we will start the patient on Ferrlecit 125 mg IVPB x1 and will repeat his hemoglobin tomorrow morning, patient has been following with Dr. Wolff was an outpatient as a matter fact he has an appointment with him sometimes next month, meanwhile we will continue to work with physical therapy and occupational therapy as well as social services designee to see the patient required to go to a subacute rehabilitation. REVIEW OF SYSTEMS: Constitutional: No documented fever, no chills, no night sweats. positive for weight change. positive for weakness, fatigue or lethargy. No daytime sleepiness. HEENT: No headache. No blurred vision or double vision, no loss of vision. very hard of Hearing, no ringing in the ears, no dizziness. No nasal drainage or congestion. No epistaxis. No sore throat. Lungs: positive for shortness of breath, occasional cough, no sputum production. no wheezing. Cardiovascular: No chest pain, positive for lower extremity edema. No palpitations. No paroxysmal nocturnal dyspnea. positive for orthopnea, occasional dizziness Abdominal: Reports no abdominal pain. No nausea, vomiting. No diarrhea. No constipation. No bloody or tarry stools reports loss of appetite. Genitourinary: No dysuria, increased frequency, urgency. No urinary retention. Musculoskeletal: positive for myalgias. positive for muscle weakness, posit robina for gait dysfunction, positive for frequent falls, positive for back pain and neck pain. Integumentary: No wounds, no lesions. No rash or pruritus. Neurologic: No aphasia. No facial droop. No change in mentation. No head injury. No headache. No paralysis. No paresthesia. Psychiatric: positive for depression, positive for anxiety. No mood swings. Endocrine: No abnormal blood sugars. No weight change. PHYSICAL EXAMINATION: General: This is a 77-year-old male resting in bed in no distress HEENT: Head is atraumatic, normocephalic, pupils were equal round reactive to light and recommendation, extraocular muscle movement were intact, sclera blair cteric, conjunctivae were pale, mucous membranes of the mouth are somewhat dry. Neck: Supple, no JVP, normal carotid upstroke bilaterally, no lymphadenopathy. Chest: Decreased breath sounds at the bases, no wheezes, no chest wall tenderness, no intercostal retractions. Heart: First heart sound is normal, second heart sound is normal, systolic ejection murmur 2/6 located at the left sternal border. there is PPM in the left upper precordium Abdomen: Soft, nontender, nondistended, positive bowel sounds. Extremities: There is +1 edema no calf tenderness DP +1 bilaterally Neurologic examination: Patient is awake alert and oriented 3, cranial nerves II-12 appear grossly intact, muscle power were 4 out of 5 in upper extremities and 3 out of 5 in bilateral lower extremities, deep tendon reflexes normal bilaterally. ASSESSMENT AND PLAN: 1. Right lower lobe pneumonia left pneumonitis. Continue Augmentin 875 mg orally twice every day , Duoneb qid and Pulmicort 1 mg Neb bid, continue oxygen support. 2. Acute on chronic diastolic heart failure. on Bumex 2 mg orally once every day, continue patient on Farxiga 5 mg once every day. 3. Leukocytosis with microcytosis and thrombocytopenia was recently evaluated by oncology, MGUS workup was negative , patient was supposed to have EGD and colonoscopy that he canceled on his own we will try to reschedule again. 4. History of non-small cell lung cancer in 2008 status post left pneumonectomy. 5. Hypertension and hypertensive cardiovascular disease. Continue Toprol-XL 100 mg daily 6. Chronic diastolic heart failure. Metoprolol 100 mg po daily,we will switch t oral diuretics and we will continue to monitor BP very closely 7. Paroxysmal atrial fibrillation. Continue patient on eliquis and we will co ntinue with Metoprolol ER 100 mg po daily. 8. History of sick sinus syndrome status post pacemaker implantation, stable. 9. Iron deficiency anemia. Start the patient on Ferrlecit 125 mg IV piggyback, repeat the patient's CBC tomorrow morning. 10. Hypothyroidism. Continue levothyroxine 88 g daily. 11. GI prophylaxis. Protonix 40 mg daily. 12. DVT prophylaxis. Continue patient on eliquis. 13. PT/OT evaluation for subacute rehabilitation 14. supervisor shed workers consultation for possible subacute rehabilitation. 15. [facility] on the [facility] in AM Objective - Vital Signs Vital signs: Vital Signs Temp 97.7 F 03/21/23 08:00 Pulse 91 03/21/23 08:00 Resp 18 03/21/23 08:00 BP 113/56 03/21/23 08:00 Pulse Ox 94 L 03/21/23 08:00 FiO2 28 03/19/23 08:48 Intake & Output 03/20/23 03/21/23 03/21/23 18:59 06:59 18:59 Intake Total 118 Output Total 500 Balance 118 -500 Weight 91.5 kg Intake: Oral 118 Output: Urine 500 Other: Voiding Method Urinal Urinal Urinal # Voids 1 - Labs CBC & Chem 7: 03/21/23 06:04 03/21/23 06:04 Labs: Abnormal Lab Results - Last 24 Hours (Table) 03/21/23 03/21/23 Range/Units 06:04 06:04 WBC 18.6 H (3.8-10.6) k/uL RBC 4.06 L (4.30-5.90) m/uL Hgb 7.9 L (13.0-17.5) gm/dL Hct 26.9 L (39.0-53.0) % MCV 66.2 L (80.0-100.0) fL MCH 19.4 L (25.0-35.0) pg MCHC 29.2 L (31.0-37.0) g/dL RDW 16.0 H (11.5-15.5) % Neutrophils # 12.1 H (1.3-7.7) k/uL Monocytes # 4.6 H (0-1.0) k/uL Sodium 135 L (137-145) mmol/L BUN 28 H (9-20) mg/dL Calcium 7.4 L (8.4-10.2) mg/dL Total Bilirubin 3.8 H (0.2-1.3) mg/dL Total Protein 5.8 L (6.3-8.2) g/dL Albumin 3.4 L (3.5-5.0) g/dL Microbiology - Last 24 Hours (Table) 03/18/23 12:28 Blood Culture - Preliminary Blood 03/18/23 11:42 Blood Culture - Preliminary Blood
[2023-03-21] MEDS: traZODone HCL 100 MG TAB PO SCH (20:29)
[2023-03-21] MEDS: ATORVASTATIN 80 MG TAB PO SCH (20:29)
[2023-03-22] MEDS: LEVOTHYROXINE 88 MCG TAB PO SCH (06:01)
[2023-03-22] MEDS: IPRATROPIUM-ALBUTEROL 3 ML NEB INHALATION SCH ×4 (07:43→18:34)
[2023-03-22] MEDS: DAPAGLIFLOZIN PROPANEDIOL 5 MG TABLET PO SCH (08:21)
[2023-03-22] MEDS: AMOXIC-POT CLAV 875-125MG 1 EACH TAB PO SCH ×2 (08:21→20:29)
[2023-03-22] MEDS: APIXABAN 5 MG TAB PO SCH ×2 (08:21→20:29)
[2023-03-22] MEDS: PANTOPRAZOLE 40 MG TABLET PO SCH (08:21)
[2023-03-22] MEDS: MAGNESIUM OXIDE 400 MG TAB PO SCH (08:21)
[2023-03-22] MEDS: BUMETANIDE 1 MG TAB PO SCH (08:21)
[2023-03-22] MEDS: ACETAMINOPHEN TAB 325 MG TAB PO PRN (11:05)
[2023-03-22 11:38] LABS: BUN/Creat Ratio 18.33 Ratio (12.00-20.00); Chloride 98 mmol/L (96-109); Glucose 77 mg/dL (70-110); Potassium 3.7 mmol/L (3.5-5.5); Sodium 140 mmol/L (135-145)
[2023-03-22 11:39] LABS: ALT 15 U/L (10-49); AST 24 U/L (14-35); Albumin 3.8 d/dL (3.8-4.9); Albumin/Globulin Ratio 2.24 Ratio (1.60-3.17); Alkaline Phosphatase 71 U/L (41-126); Calcium 7.4 mg/dL (8.7-10.3); Globulin 1.7 d/dL (1.6-3.3); Total Bilirubin 2.3 mg/dL (0.3-1.2); Total Protein 5.5 d/dL (6.2-8.2)
[2023-03-22 11:46] LABS: Basophils # (A) 0.04 X 10*3/uL (0.00-0.10); Basophils % (A) 0.2 %; Eosinophils # (A) 0.12 X 10*3/uL (0.04-0.35); Eosinophils % (A) 0.5 %; HCT 27.1 % (39.6-50.0); HGB 7.3 d/dL (13.0-17.0); Lymphocytes # (A) 1.38 X 10*3/uL (0.90-5.00); Lymphocytes % (A) 6.1 %; MCH 18.1 pg (27.0-32.0); MCHC 26.9 d/dL (32.0-37.0); MCV 67.1 FL (80.0-97.0); Monocytes # (A) 7.17 X 10*3/uL (0.20-1.00); NRBC Per 100 WBC 0 X 10*3/uL (0.00-0.01); Neutrophils # (A) 13.48 X 10*3/uL (1.80-7.70); Neutrophils % (A) 60.1 %; Platelet Count 234 X 10*3/uL (140-440); RBC 4.04 X 10*6/uL (4.40-5.60); RDW 17.8 % (11.5-14.5); WBC 22.44 X 10*3/uL (4.50-10.00)
[2023-03-22] MEDS ORDERED: SODIUM FERRIC GLUCONAT-SUCROSE 125 MG in SODIUM CHLORIDE 0.9% 100 ML IVPB ONE (12:44)
--- NOTE | 2023-03-22 12:44 | P.DS ---
Providers Date of admission: 03/18/23 11:54 Expected date of discharge: 03/23/23 Attending physician: Nat Oglesby Consults: 03/18/23 11:50 Consult Physician Routine Consulting Provider: Nayeli Solis Consult Reason/Comments: Pneumonia Do you want consulting provider notified?: Yes Primary care physician: Nat Oglesby Hospital Course: HISTORY OF PRESENT ILLNESS: This is a 77-year-old male patient of mine with past medical history of non-small cell lung cancer diagnosed in 2008 status post lobectomy, remote history of tobacco use, remote history of alcohol abuse, alcoholic peripheral neuropathy, hypertension, coronary artery disease, paroxysmal atrial fibrillation on eliquis, history of tachybradycardia syndrome status post pacemaker implantation, patient was seen in the ER few days ago with increased shortness of breath, CXR was ok at that time with minimally elevated BNP patient was given Lasix 40 mg IVP and he was sent home he was 96 % on RA and was supposed to see me in the office in few days, unfortunately patient woke up in the morning today with increased shortness of breath, became very anxious and he called EMS who brought him to the ER at [facility], his CXR was read as improvement in the right lung areation with possible pneumonitis in the left lower lobe, and cardiomegaly, he was started on O2 , Zosyn and Zithromax and was placed on lasix 40 mg IVP Q12 hours and was admitted to the hospital for evaluation and treatment, pulmonary consult was obtained. 03/19: Patient is sitting up in bed is feeling better, continues to be on O2 , we will continue with current treatment plan with IV ABX and Diuretics with furosemide along with Farxiga we will monitor input and output and daily weight, PT and OT to see patient along with social sciences professor for discharge planning. 03/20: Patient is sitting up in bed he continues to be generally weak, he is a bleeding using a walker, physical therapy has not seen the patient has, switch the patient to oral Bumex since his blood pressures a bit lower side, he appears to be at his dry weight, patient was switched oral Augmentin 875 mg orally twice every day, as the patient is cleared by physical therapy can be discharged home tomorrow morning. 03/21: Patient is sitting up in bed he continues to be generally weak, he appears to be more pale today his hemoglobin is down 7.9, per to have microcytic anemia likely iron deficiency anemia, we will start the patient on Ferrlecit 125 mg IVPB x1 and will repeat his hemoglobin tomorrow morning, patient has been following with Dr. Wolff was an outpatient as a matter fact he has an appointment with him sometimes next month, meanwhile we will continue to work with physical therapy and occupational therapy as well as social sciences professor to see the patient required to go to a subacute rehabilitation. dISCHARGE dIAGNOSES: 1. Right lower lobe pneumonia left pneumonitis. 2. Acute on chronic diastolic heart failure. 3. Leukocytosis with microcytosis and thrombocytopenia was recently evaluated by oncology, MGUS workup was negative , 4. History of non-small cell lung cancer in 2008 status post left pneumonectomy. 5. Hypertension and hypertensive cardiovascular disease. 6. Chronic diastolic heart failure. 7. Paroxysmal atrial fibrillation. 8. History of sick sinus syndrome status post pacemaker implantation 9. Iron deficiency anemia. 10. Hypothyroidism. Patient Condition at Discharge: Stable Plan - Discharge Summary Discharge Rx Participant: Yes New Discharge Prescriptions: New Amoxic-Pot Clav 875-125Mg [Augmentin 875-125] 1 each PO Q12HR #14 tab Ipratropium-Albuterol Nebulize [Duoneb 0.5 mg-3 mg/3 ml Soln] 3 ml INHALATION RT-QID #360 each Acetaminophen Tab [Tylenol] 650 mg PO Q6HR PRN tab PRN Reason: Fever And/ Or Pain Continue Atorvastatin [Lipitor] 80 mg PO HS Magnesium Oxide 400 mg PO DAILY traZODone HCL [Desyrel] 100 mg PO HS Levothyroxine Sodium [Synthroid] 88 mcg PO DAILY Bumetanide [BUMEX] 2 mg PO DAILY Apixaban [Eliquis] 5 mg PO BID #60 tab Metoprolol Succinate (ER) [Toprol XL] 100 mg PO DAILY Dapagliflozin Propanediol [Farxiga] 5 mg PO DAILY Discharge Medication List Atorvastatin [Lipitor] 80 mg PO HS 06/11/20 [History] Magnesium Oxide 400 mg PO DAILY 12/23/20 [History] Apixaban [Eliquis] 5 mg PO BID #60 tab 10/22/21 [Rx] Levothyroxine Sodium [Synthroid] 88 mcg PO DAILY 08/21/22 [History] traZODone HCL [Desyrel] 100 mg PO HS 08/21/22 [History] Metoprolol Succinate (ER) [Toprol XL] 100 mg PO DAILY 09/21/22 [History] Bumetanide [BUMEX] 2 mg PO DAILY 03/18/23 [History] Dapagliflozin Propanediol [Farxiga] 5 mg PO DAILY 03/18/23 [History] Acetaminophen Tab [Tylenol] 650 mg PO Q6HR PRN tab 03/20/23 [Rx] Amoxic-Pot Clav 875-125Mg [Augmentin 875-125] 1 each PO Q12HR #14 tab 03/20/23 [Rx] Ipratropium-Albuterol Nebulize [Duoneb 0.5 mg-3 mg/3 ml Soln] 3 ml INHALATION RT-QID #360 each 03/20/23 [Rx] Follow up Appointment(s)/Referral(s): Nat Oglesby MD [Primary Care Provider] - 03/30/23 1:00 pm Carlo Prieto MD [STAFF PHYSICIAN] - 04/20/23 11:15 am (This is a previously scheduled follow up appointment. We were unable to get a sooner appointment.) Discharge Disposition: HOME WITH HOME HEALTH SERVICES
[2023-03-22] MEDS: METOPROLOL SUCCINATE (ER) 100 MG TAB.ER.24H PO SCH (14:17)
[2023-03-22] MEDS: ATORVASTATIN 80 MG TAB PO SCH (20:29)
[2023-03-22] MEDS: traZODone HCL 100 MG TAB PO SCH (20:29)
[2023-03-23] MEDS: LEVOTHYROXINE 88 MCG TAB PO SCH (06:19)
[2023-03-23] MEDS: IPRATROPIUM-ALBUTEROL 3 ML NEB INHALATION SCH ×4 (07:55→20:04)
[2023-03-23] MEDS: PANTOPRAZOLE 40 MG TABLET PO SCH (08:40)
[2023-03-23] MEDS: AMOXIC-POT CLAV 875-125MG 1 EACH TAB PO SCH ×2 (08:40→21:26)
[2023-03-23] MEDS: DAPAGLIFLOZIN PROPANEDIOL 5 MG TABLET PO SCH (08:40)
[2023-03-23] MEDS: APIXABAN 5 MG TAB PO SCH ×2 (08:40→21:26)
[2023-03-23] MEDS: MAGNESIUM OXIDE 400 MG TAB PO SCH (08:40)
[2023-03-23] MEDS: BUMETANIDE 1 MG TAB PO SCH (08:41)
[2023-03-23] MEDS: METOPROLOL SUCCINATE (ER) 100 MG TAB.ER.24H PO SCH (08:41)
[2023-03-23 12:55] LABS: Anisocytosis Slight; Basophils % (A) 0 %; Eosinophils # (A) 0.1 k/uL (0-0.7); Eosinophils % (A) 0 %; HCT 29.4 % (39.0-53.0); HGB 8.6 gm/dL (13.0-17.5); Hypochromasia Marked; Lymphocytes # (A) 1.1 k/uL (1.0-4.8); Lymphocytes % (A) 4 %; MCH 19.1 pg (25.0-35.0); MCHC 29.1 g/dL (31.0-37.0); MCV 65.7 fL (80.0-100.0); Mean Platelet Volume 8.7; Microcytosis Marked; Monocytes # (A) 4.2 k/uL (0-1.0); Monocytes % (A) 16 %; Neutrophils # (A) 20.3 k/uL (1.3-7.7); Neutrophils % (A) 77 %; Platelet Count 224 k/uL (150-450); RBC 4.48 m/uL (4.30-5.90); WBC 26.5 k/uL (3.8-10.6)
[2023-03-23 13:06] LABS: ALT 17 U/L (4-49); AST 32 U/L (17-59); African American GFR (CKD) 76 (>60 ml/min/1.73 sqM); Albumin 3.6 g/dL (3.5-5.0); Albumin/Globulin Ratio 1.3; Alkaline Phosphatase 70 U/L (38-126); Anion Gap 11 mmol/L; Blood Urea Nitrogen 22 mg/dL (9-20); Calcium 7.1 mg/dL (8.4-10.2); Carbon Dioxide 31 mmol/L (22-30); Chloride 95 mmol/L (98-107); Globulin 2.7 g/dL; Glucose 107 mg/dL (74-99); Non-African American GFR(CKD) 65 (>60 ml/min/1.73 sqM); Potassium 3.7 mmol/L (3.5-5.1); Sodium 137 mmol/L (137-145); Total Protein 6.3 g/dL (6.3-8.2)
[2023-03-23] MEDS: ACETAMINOPHEN TAB 325 MG TAB PO PRN (16:14)
[2023-03-23] MEDS: FERROUS SULFATE 325 MG TAB PO SCH (17:50)
[2023-03-23] MEDS: traZODone HCL 100 MG TAB PO SCH (21:26)
[2023-03-23] MEDS: ATORVASTATIN 80 MG TAB PO SCH (21:26)
[2023-03-24] MEDS: LEVOTHYROXINE 88 MCG TAB PO SCH (06:09)
--- NOTE | 2023-03-24 07:46 | XR ---
EXAMINATION TYPE: XR chest 2V DATE OF EXAM: 03/24/2023 COMPARISON: 03/19/2023 HISTORY: Shortness of breath TECHNIQUE: Frontal and lateral views of the chest are obtained. FINDINGS: Complete opacification left hemithorax. Right lung is clear. Heart size is stable. Mediastinal structures are stable and grossly unremarkable. No evidence for hilar prominence. Degenerative changes dorsal spine. IMPRESSION: 1. Complete opacification left hemithorax. Right lung is clear.
[2023-03-24] MEDS: APIXABAN 5 MG TAB PO SCH ×2 (08:09→20:01)
[2023-03-24] MEDS: MAGNESIUM OXIDE 400 MG TAB PO SCH (08:09)
[2023-03-24] MEDS: AMOXIC-POT CLAV 875-125MG 1 EACH TAB PO SCH ×2 (08:09→20:01)
[2023-03-24] MEDS: PANTOPRAZOLE 40 MG TABLET PO SCH (08:10)
[2023-03-24] MEDS: DAPAGLIFLOZIN PROPANEDIOL 5 MG TABLET PO SCH (08:10)
[2023-03-24] MEDS: FERROUS SULFATE 325 MG TAB PO SCH ×2 (08:10→17:52)
[2023-03-24] MEDS: METOPROLOL SUCCINATE (ER) 100 MG TAB.ER.24H PO SCH (08:10)
[2023-03-24] MEDS: BUMETANIDE 1 MG TAB PO SCH (08:10)
[2023-03-24] MEDS: IPRATROPIUM-ALBUTEROL 3 ML NEB INHALATION SCH ×4 (08:31→20:19)
[2023-03-24 10:59] LABS: Basophils # (A) 0.05 X 10*3/uL (0.00-0.10); Basophils % (A) 0.2 %; Eosinophils # (A) 0.15 X 10*3/uL (0.04-0.35); Eosinophils % (A) 0.7 %; HCT 26.2 % (39.6-50.0); HGB 7.1 d/dL (13.0-17.0); Lymphocytes # (A) 1.35 X 10*3/uL (0.90-5.00); Lymphocytes % (A) 6.1 %; MCH 18.3 pg (27.0-32.0); MCHC 27.1 d/dL (32.0-37.0); MCV 67.4 FL (80.0-97.0); Monocytes # (A) 4.64 X 10*3/uL (0.20-1.00); Monocytes % (A) 20.9 %; NRBC Per 100 WBC 0 X 10*3/uL (0.00-0.01); Neutrophils # (A) 15.76 X 10*3/uL (1.80-7.70); Neutrophils % (A) 71.1 %; Platelet Count 233 X 10*3/uL (140-440); RBC 3.89 X 10*6/uL (4.40-5.60); RDW 18.7 % (11.5-14.5); WBC 22.18 X 10*3/uL (4.50-10.00)
[2023-03-24 11:12] LABS: ALT 16 U/L (10-49); AST 26 U/L (14-35); Albumin 3.5 d/dL (3.8-4.9); Albumin/Globulin Ratio 1.84 Ratio (1.60-3.17); Alkaline Phosphatase 79 U/L (41-126); BUN/Creat Ratio 17.33 Ratio (12.00-20.00); Blood Urea Nitrogen 20.8 mg/dL (9.0-27.0); Calcium 7.3 mg/dL (8.7-10.3); Carbon Dioxide 29.5 mmol/L (21.6-31.8); Chloride 98 mmol/L (96-109); Globulin 1.9 d/dL (1.6-3.3); Glucose 75 mg/dL (70-110); Potassium 3.7 mmol/L (3.5-5.5); Sodium 141 mmol/L (135-145); Total Bilirubin 1.1 mg/dL (0.3-1.2); Total Protein 5.4 d/dL (6.2-8.2)
--- NOTE | 2023-03-24 11:59 | P.DS ---
Providers Date of admission: 03/18/23 11:54 Expected date of discharge: 03/26/23 Attending physician: Nat Oglesby Consults: 03/18/23 11:50 Consult Physician Routine Consulting Provider: Nayeli Solis Consult Reason/Comments: Pneumonia Do you want consulting provider notified?: Yes Primary care physician: Nat Oglesby Hospital Course: HISTORY OF PRESENT ILLNESS: This is a 77-year-old male patient of mine with past medical history of non-small cell lung cancer diagnosed in 2008 status post lobectomy, remote history of tobacco use, remote history of alcohol abuse, alcoholic peripheral neuropathy, hypertension, coronary artery disease, paroxysmal atrial fibrillation on eliquis, history of tachybradycardia syndrome status post pacemaker implantation, patient was seen in the ER few days ago with increased shortness of breath, CXR was ok at that time with minimally elevated BNP patient was given Lasix 40 mg IVP and he was sent home he was 96 % on RA and was supposed to see me in the office in few days, unfortunately patient woke up in the morning today with increased shortness of breath, became very anxious and he called EMS who brought him to the ER at [facility], his CXR was read as improvement in the right lung areation with possible pneumonitis in the left lower lobe, and cardiomegaly, he was started on O2 , Zosyn and Zithromax and was placed on lasix 40 mg IVP Q12 hours and was admitted to the hospital for evaluation and treatment, pulmonary consult was obtained. 03/19: Patient is sitting up in bed is feeling better, continues to be on O2 , we will continue with current treatment plan with IV ABX and Diuretics with furosemide along with Farxiga we will monitor input and output and daily weight, PT and OT to see patient along with case management social worker for discharge planning. 03/20: Patient is sitting up in bed he continues to be generally weak, he is a bleeding using a walker, physical therapy has not seen the patient has, switch the patient to oral Bumex since his blood pressures a bit lower side, he appears to be at his dry weight, patient was switched oral Augmentin 875 mg orally twice every day, as the patient is cleared by physical therapy can be discharged home tomorrow morning. 03/21: Patient is sitting up in bed he continues to be generally weak, he appears to be more pale today his hemoglobin is down 7.9, per to have microcytic anemia likely iron deficiency anemia, we will start the patient on Ferrlecit 125 mg IVPB x1 and will repeat his hemoglobin tomorrow morning, patient has been following with Dr. Wolff was an outpatient as a matter fact he has an appointment with him sometimes next month, meanwhile we will continue to work with physical therapy and occupational therapy as well as case management social worker to see the patient required to go to a subacute rehabilitation. 03/22: Patient is sitting up in bed complains of increased weakness, has been seen by PT and it was recommended to go to Sub-Acute rehab , also HGB is down and he will be getting Ferrlicet 125 mg IVPB daily for 2 doses, will need to have GI work up as out patient we will schedule with , 03/23: Patient is sitting in bed, feeling better today, HGB is up to 8.6, no bowel movements, no signs of bleeding but definitely iron deficiency anemia, will require repeated GI work up as outpatient we will continue with iron suplements meanwhile unless active bleeding, we will continue to work with PT and OT and await Prior Authorization for Sub Acute rehabilitation 03/24: Patient remains afebrile, heart rate in the 70s, blood pressure 106/58, pulse ox 96% on room air. Repeat blood work reveals WBC 22.1, hemoglobin 7.1, platelet count 233. Creatinine 1.2. Blood cultures finalized with no growth at 5 days. Repeat chest x-ray reveals complete opacities occasional of the left hemithorax. Right lung is clear. Discharge plan is for subacute rehab at [facility]. Patient is currently waiting for insurance authorization. Once all arrangements are completed, patient will be discharged today in stable condition. 03/25: Patient is waiting for insurance authorization. He has been doing well in general but continues to have some weakness. He remains afebrile. Heart rate 70, BP 107/57. PO 98% on room air. Patient will be discharged once all arrangements are completed. [id number] call is scheduled this afternoon. If insurance authorization is not obtained, patient will be discharged home. DISCHARGE DIAGNOSES: 1. Right lower lobe pneumonia left pneumonitis. 2. Acute on chronic diastolic heart failure. 3. Leukocytosis with microcytosis and thrombocytopenia was recently evaluated by oncology, MGUS workup was negative 4. History of non-small cell lung cancer in 2009 status post left pneumonectomy. 5. Hypertension and hypertensive cardiovascular disease. 6. Chronic diastolic heart failure. 7. Paroxysmal atrial fibrillation. 8. History of sick sinus syndrome status post pacemaker implantation 9. Iron deficiency anemia. 10. Hypothyroidism. Discharge plan: [facility] Greater than 35 minutes was utilized and coordinating patient's discharge. Impression and plan of care have been directed as dictated by the signing physician. Jada Burr nurse practitioner acting as scribe for signing physician. Patient Condition at Discharge: Stable Plan - Discharge Summary Discharge Rx Participant: Yes New Discharge Prescriptions: New Amoxic-Pot Clav 875-125Mg [Augmentin 875-125] 1 each PO Q12HR #14 tab Ipratropium-Albuterol Nebulize [Duoneb 0.5 mg-3 mg/3 ml Soln] 3 ml INHALATION RT-QID #360 each Acetaminophen Tab [Tylenol] 650 mg PO Q6HR PRN tab PRN Reason: Fever And/ Or Pain Ferrous Sulfate [Iron (65 MG Elemental)] 325 mg PO BID-W/MEALS #60 tab Continue Atorvastatin [Lipitor] 80 mg PO HS Magnesium Oxide 400 mg PO DAILY traZODone HCL [Desyrel] 100 mg PO HS Levothyroxine Sodium [Synthroid] 88 mcg PO DAILY Bumetanide [BUMEX] 2 mg PO DAILY Apixaban [Eliquis] 5 mg PO BID #60 tab Metoprolol Succinate (ER) [Toprol XL] 100 mg PO DAILY Dapagliflozin Propanediol [Farxiga] 5 mg PO DAILY Discharge Medication List Atorvastatin [Lipitor] 80 mg PO HS 06/11/20 [History] Magnesium Oxide 400 mg PO DAILY 12/23/20 [History] Apixaban [Eliquis] 5 mg PO BID #60 tab 10/22/21 [Rx] Levothyroxine Sodium [Synthroid] 88 mcg PO DAILY 08/21/22 [History] traZODone HCL [Desyrel] 100 mg PO HS 08/21/22 [History] Metoprolol Succinate (ER) [Toprol XL] 100 mg PO DAILY 09/21/22 [History] Bumetanide [BUMEX] 2 mg PO DAILY 03/18/23 [History] Dapagliflozin Propanediol [Farxiga] 5 mg PO DAILY 03/18/23 [History] Acetaminophen Tab [Tylenol] 650 mg PO Q6HR PRN tab 03/20/23 [Rx] Amoxic-Pot Clav 875-125Mg [Augmentin 875-125] 1 each PO Q12HR #14 tab 03/20/23 [Rx] Ipratropium-Albuterol Nebulize [Duoneb 0.5 mg-3 mg/3 ml Soln] 3 ml INHALATION RT-QID #360 each 03/20/23 [Rx] Ferrous Sulfate [Iron (65 MG Elemental)] 325 mg PO BID-W/MEALS #60 tab 03/24/23 [Rx] Follow up Appointment(s)/Referral(s): Nat Oglesby MD [Primary Care Provider] - 03/30/23 1:00 pm Carlo Prieto MD [STAFF PHYSICIAN] - 04/20/23 11:15 am (This is a previously scheduled follow up appointment. We were unable to get a sooner appointment.) Discharge Disposition: HOME WITH HOME HEALTH SERVICES
--- NOTE | 2023-03-24 16:18 | P.PN ---
Subjective Progress Note Date: 03/22/23 HISTORY OF PRESENT ILLNESS: This is a 77-year-old male patient of mine with past medical history of non-small cell lung cancer diagnosed in 2009 status post lobectomy, remote history of tobacco use, remote history of alcohol abuse, alcoholic peripheral neuropathy, hypertension, coronary artery disease, paroxysmal atrial fibrillation on eliquis, history of tachybradycardia syndrome status post pacemaker implantation, patient was seen in the ER few days ago with increased shortness of breath, CXR was ok at that time with minimally elevated BNP patient was given Lasix 40 mg IVP and he was sent home he was 96 % on RA and was supposed to see me in the office in few days, unfortunately patient woke up in the morning today with increased shortness of breath, became very anxious and he called EMS who brought him to the ER at [facility], his CXR was read as improvement in the right lung areation with possible pneumonitis in the left lower lobe, and cardiomegaly, he was started on O2 , Zosyn and Zithromax and was placed on lasix 40 mg IVP Q12 hours and was admitted to the hospital for evaluation and treatment, pulmonary consult was obtained. 03/19: Patient is sitting up in bed is feeling better, continues to be on O2 , we will continue with current treatment plan with IV ABX and Diuretics with furosemide along with Farxiga we will monitor input and output and daily weight, PT and OT to see patient along with social welfare administrator for discharge planning. 03/20: Patient is sitting up in bed he continues to be generally weak, he is a bleeding using a walker, physical therapy has not seen the patient has, switch the patient to oral Bumex since his blood pressures a bit lower side, he appears to be at his dry weight, patient was switched oral Augmentin 875 mg orally twice every day, as the patient is cleared by physical therapy can be discharged home tomorrow morning. 03/21: Patient is sitting up in bed he continues to be generally weak, he appears to be more pale today his hemoglobin is down 7.9, per to have microcytic anemia likely iron deficiency anemia, we will start the patient on Ferrlecit 125 mg IVPB x1 and will repeat his hemoglobin tomorrow morning, patient has been following with Dr. Wolff was an outpatient as a matter fact he has an appointment with him sometimes next month, meanwhile we will continue to work with physical therapy and occupational therapy as well as social welfare administrator to see the patient required to go to a subacute rehabilitation. 03/22: Patient is sitting up in bed complains of increased weakness, has been s een by PT and it was recommended to go to Sub-Acute rehab , also HGB is down and he will be getting Ferrlicet 125 mg IVPB daily for 2 doses, will need to have GI work up as out patient we will schedule with , REVIEW OF SYSTEMS: Constitutional: No documented fever, no chills, no night sweats. positive for weight change. positive for weakness, fatigue or lethargy. No daytime sleepiness. HEENT: No headache. No blurred vision or double vision, no loss of vision. very hard of Hearing, no ringing in the ears, no dizziness. No nasal drainage or congestion. No epistaxis. No sore throat. Lungs: positive for shortness of breath, occasional cough, no sputum production. no wheezing. Cardiovascular: No chest pain, positive for lower extremity edema. No palpitations. No paroxysmal nocturnal dyspnea. positive for orthopnea, occasional dizziness Abdominal: Reports no abdominal pain. No nausea, vomiting. No diarrhea. No constipation. No bloody or tarry stools reports loss of appetite. Genitourinary: No dysuria, increased frequency, urgency. No urinary retention. Musculoskeletal: positive for myalgias. positive for muscle weakness, positive for gait dysfunction, positive for frequent falls, positive for back pain and neck pain. Integumentary: No wounds, no lesions. No rash or pruritus. Neurologic: No aphasia. No facial droop. No change in mentation. No head injury. No headache. No paralysis. No paresthesia. Psychiatric: positive for depression, positive for anxiety. No mood swings. Endocrine: No abnormal blood sugars. No weight change. PHYSICAL EXAMINATION: General: This is a 77-year-old male resting in bed in no distress HEENT: Head is atraumatic, normocephalic, pupils were equal round reactive to light and recommendation, extraocular muscle movement were intact, sclera nonict stephane, conjunctivae were pale, mucous membranes of the mouth are somewhat dry. Neck: Supple, no JVP, normal carotid upstroke bilaterally, no lymphadenopathy. Chest: Decreased breath sounds at the bases, no wheezes, no chest wall tenderness, no intercostal retractions. Heart: First heart sound is normal, second heart sound is normal, systolic ejection murmur 2/6 located at the left sternal border. there is PPM in the left upper precordium Abdomen: Soft, nontender, nondistended, positive bowel sounds. Extremities: There is +1 edema no calf tenderness DP +1 bilaterally Neurologic examination: Patient is awake alert and oriented 3, cranial nerves II-12 appear grossly intact, muscle power were 4 out of 5 in upper extremities and 3 out of 5 in bilateral lower extremities, deep tendon reflexes normal bilaterally. ASSESSMENT AND PLAN: 1. Right lower lobe pneumonia left pneumonitis. Continue Augmentin 875 mg orally twice every day , Duoneb qid and Pulmicort 1 mg Neb bid, continue oxygen support as needed 2. Acute on chronic diastolic heart failure. on Bumex 2 mg orally once every day, continue patient on Farxiga 5 mg once every day. 3. Leukocytosis with microcytosis and thrombocytopenia was recently evaluated by oncology, MGUS workup was negative , patient was supposed to have EGD and colonoscopy that he canceled on his own we will try to reschedule again, will follow up with next month 4. History of non-small cell lung cancer in 2009 status post left pneumonectomy. 5. Hypertension and hypertensive cardiovascular disease. Continue Toprol-XL 100 mg daily 6. Chronic diastolic heart failure. Metoprolol 100 mg po daily,we will co ntinue with Bumex 2 mg po daily 7. Paroxysmal atrial fibrillation. Continue patient on eliquis 5 mg po bid and we will continue with Metoprolol ER 100 mg po daily. 8. History of sick sinus syndrome status post pacemaker implantation, stable. 9. Iron deficiency anemia. Start the patient on Ferrlecit 125 mg IV piggyback, repeat the patient's CBC tomorrow morning. 10. Hypothyroidism. Continue levothyroxine 88 g daily. 11. GI prophylaxis. Protonix 40 mg daily. 12. DVT prophylaxis. Continue patient on eliquis. 13. PT/OT evaluation for subacute rehabilitation 14. hog worker consultation for possible subacute rehabilitation. 15. [facility] [place] when Auth is available. Objective - Vital Signs Vital signs: Vital Signs Temp 97.8 F 03/22/23 07:01 Pulse 88 03/22/23 11:15 Resp 19 03/22/23 07:01 BP 103/53 03/22/23 10:02 Pulse Ox 99 03/22/23 07:01 FiO2 28 03/19/23 08:48 Intake & Output 03/21/23 03/22/23 03/22/23 18:59 06:59 18:59 Intake Total 218 118 Output Total 900 550 Balance -682 -432 Weight 99.5 kg Intake: Intake, IV Titration 100 Amount Sodium Ferric Gluconat- 100 Sucrose 125 mg In Sodium Chloride 0.9% 100 ml @ 100 mls/hr IVPB ONCE ONE Rx#:[id number] Oral 118 118 Output: Urine 900 550 Other: Voiding Method Urinal Urinal Urinal # Voids 2 1 - Labs CBC & Chem 7: 03/24/23 05:24 03/24/23 05:24 Labs: Abnormal Lab Results - Last 24 Hours (Table) 03/22/23 03/22/23 Range/Units 05:41 05:41 WBC 22.44 H (4.50-10.00) X 10*3/uL RBC 4.04 L (4.40-5.60) X 10*6/uL Hgb 7.3 L (13.0-17.0) d/dL Hct 27.1 L (39.6-50.0) % MCV 67.1 L (80.0-97.0) FL MCH 18.1 L (27.0-32.0) pg MCHC 26.9 L (32.0-37.0) d/dL RDW 17.8 H (11.5-14.5) % Neutrophils # 13.48 H (1.80-7.70) X 10*3/uL Monocytes # 7.17 H (0.20-1.00) X 10*3/uL Anion Gap 14.00 H (4.00-12.00) mmol/L Calcium 7.4 L (8.7-10.3) mg/dL Total Bilirubin 2.3 H (0.3-1.2) mg/dL Total Protein 5.5 L (6.2-8.2) d/dL Microbiology - Last 24 Hours (Table) 03/18/23 12:28 Blood Culture - Preliminary Blood 03/18/23 11:42 Blood Culture - Preliminary Blood
--- NOTE | 2023-03-24 16:21 | P.PN ---
Subjective Progress Note Date: 03/23/23 HISTORY OF PRESENT ILLNESS: This is a 77-year-old male patient of mine with past medical history of non-small cell lung cancer diagnosed in 2009 status post lobectomy, remote history of tobacco use, remote history of alcohol abuse, alcoholic peripheral neuropathy, hypertension, coronary artery disease, paroxysmal atrial fibrillation on eliquis, history of tachybradycardia syndrome status post pacemaker implantation, patient was seen in the ER few days ago with increased shortness of breath, CXR was ok at that time with minimally elevated BNP patient was given Lasix 40 mg IVP and he was sent home he was 96 % on RA and was supposed to see me in the office in few days, unfortunately patient woke up in the morning today with increased shortness of breath, became very anxious and he called EMS who brought him to the ER at [facility], his CXR was read as improvement in the right lung areation with possible pneumonitis in the left lower lobe, and cardiomegaly, he was started on O2 , Zosyn and Zithromax and was placed on lasix 40 mg IVP Q12 hours and was admitted to the hospital for evaluation and treatment, pulmonary consult was obtained. 03/19: Patient is sitting up in bed is feeling better, continues to be on O2 , we will continue with current treatment plan with IV ABX and Diuretics with furosemide along with Farxiga we will monitor input and output and daily weight, PT and OT to see patient along with social work instructor for discharge planning. 03/20: Patient is sitting up in bed he continues to be generally weak, he is a bleeding using a walker, physical therapy has not seen the patient has, switch the patient to oral Bumex since his blood pressures a bit lower side, he appears to be at his dry weight, patient was switched oral Augmentin 875 mg orally twice every day, as the patient is cleared by physical therapy can be discharged home tomorrow morning. 03/21: Patient is sitting up in bed he continues to be generally weak, he appears to be more pale today his hemoglobin is down 7.9, per to have microcytic anemia likely iron deficiency anemia, we will start the patient on Ferrlecit 125 mg IVPB x1 and will repeat his hemoglobin tomorrow morning, patient has been following with Dr. Wolff was an outpatient as a matter fact he has an appointment with him sometimes next month, meanwhile we will continue to work with physical therapy and occupational therapy as well as social work instructor to see the patient required to go to a subacute rehabilitation. 03/22: Patient is sitting up in bed complains of increased weakness, has been s een by PT and it was recommended to go to Sub-Acute rehab , also HGB is down and he will be getting Ferrlicet 125 mg IVPB daily for 2 doses, will need to have GI work up as out patient we will schedule with , 03/23: Patient is sitting in bed, feeling better today, HGB is up to 8.6, no bowel movements, no signs of bleeding but definitely iron deficiency anemia, will require repeated GI work up as outpatient we will continue with iron suplements meanwhile unless active bleeding, we will continue to work with PT and OT and await Prior Authorization for Sub Acute rehabilitation REVIEW OF SYSTEMS: Constitutional: No documented fever, no chills, no night sweats. positive for weight change. positive for weakness, fatigue or lethargy. No daytime sleepiness. HEENT: No headache. No blurred vision or double vision, no loss of vision. very hard of Hearing, no ringing in the ears, no dizziness. No nasal drainage or congestion. No epistaxis. No sore throat. Lungs: positive for shortness of breath, occasional cough, no sputum production. no wheezing. Cardiovascular: No chest pain, positive for lower extremity edema. No palpitations. No paroxysmal nocturnal dyspnea. positive for orthopnea, occasional dizziness Abdominal: Reports no abdominal pain. No nausea, vomiting. No diarrhea. No constipation. No bloody or tarry stools reports loss of appetite. Genitourinary: No dysuria, increased frequency, urgency. No urinary retention. Musculoskeletal: positive for myalgias. positive for muscle weakness, positive for gait dysfunction, positive for frequent falls, positive for back pain and neck pain. Integumentary: No wounds, no lesions. No rash or pruritus. Neurologic: No aphasia. No facial droop. No change in mentation. No head injury. No headache. No paralysis. No paresthesia. Psychiatric: positive for depression, positive for anxiety. No mood swings. Endocrine: No abnormal blood sugars. No weight change. PHYSICAL EXAMINATION: General: This is a 77-year-old male resting in bed in no distress HEENT: Head is atraumatic, normocephalic, pupils were equal round reactive to light and recommendation, extraocular muscle movement were intact, sclera nonicteric, conjunctivae were pale, mucous membranes of the mouth are somewhat dry. Neck: Supple, no JVP, normal carotid upstroke bilaterally, no lymphadenopathy. Chest: Decreased breath sounds at the bases, no wheezes, no chest wall tenderness, no intercostal retractions. Heart: First heart sound is normal, second heart sound is normal, systolic ejection murmur 2/6 located at the left sternal border. there is PPM in the left upper precordium Abdomen: Soft, nontender, nondistended, positive bowel sounds. Extremities: There is +1 edema no calf tenderness DP +1 bilaterally Neurologic examination: Patient is awake alert and oriented 3, cranial nerves II-12 appear grossly intact, muscle power were 4 out of 5 in upper extremities and 3 out of 5 in bilateral lower extremities, deep tendon reflexes normal bilaterally. ASSESSMENT AND PLAN: 1. Right lower lobe pneumonia left pneumonitis. Continue Augmentin 875 mg orally twice every day , Duoneb qid and Pulmicort 1 mg Neb bid, continue oxygen support as needed 2. Acute on chronic diastolic heart failure. on Bumex 2 mg orally once every day, continue patient on Farxiga 5 mg once every day. 3. Leukocytosis with microcytosis and thrombocytopenia was recently evaluated by oncology, MGUS workup was negative , patient was supposed to have EGD and colonoscopy that he canceled on his own we will try to reschedule again, will follow up with next month 4. History of non-small cell lung cancer in 2009 status post left pneumonect bianca. 5. Hypertension and hypertensive cardiovascular disease. Continue Toprol-XL 100 mg daily 6. Chronic diastolic heart failure. Metoprolol 100 mg po daily,we will continue with Bumex 2 mg po daily 7. Paroxysmal atrial fibrillation. Continue patient on eliquis 5 mg po bid and we will continue with Metoprolol ER 100 mg po daily. 8. History of sick sinus syndrome status post pacemaker implantation, stable. 9. Iron deficiency anemia. Start the patient on Ferrlecit 125 mg IV piggyback, repeat the patient's CBC tomorrow morning. 10. Hypothyroidism. Continue levothyroxine 88 g daily. 11. GI prophylaxis. Protonix 40 mg daily. 12. DVT prophylaxis. Continue patient on eliquis. 13. PT/OT evaluation for subacute rehabilitation 14. iron worker foreman consultation for possible subacute rehabilitation. 15. [facility] when Auth is available. Objective - Vital Signs Vital signs: Vital Signs Temp 97.7 F 03/23/23 18:05 Pulse 74 03/23/23 18:05 Resp 16 03/23/23 18:05 BP 114/66 03/23/23 18:05 Pulse Ox 97 03/23/23 18:05 FiO2 28 03/19/23 08:48 Intake & Output 03/23/23 03/23/23 03/24/23 06:59 18:59 06:59 Intake Total 118 100 Output Total 420 200 Balance -302 -100 Weight 44.906 kg Intake: Oral 118 100 Output: Urine 420 200 Other: Voiding Method Urinal # Voids 1 - Labs CBC & Chem 7: 03/24/23 05:24 03/24/23 05:24 Labs: Abnormal Lab Results - Last 24 Hours (Table) 03/23/23 03/23/23 Range/Units 12:35 12:35 WBC 26.5 H (3.8-10.6) k/uL Hgb 8.6 L (13.0-17.5) gm/dL Hct 29.4 L (39.0-53.0) % MCV 65.7 L (80.0-100.0) fL MCH 19.1 L (25.0-35.0) pg MCHC 29.1 L (31.0-37.0) g/dL RDW 17.0 H (11.5-15.5) % Neutrophils # 20.3 H (1.3-7.7) k/uL Monocytes # 4.2 H (0-1.0) k/uL Chloride 95 L (98-107) mmol/L Carbon Dioxide 31 H (22-30) mmol/L BUN 22 H (9-20) mg/dL Glucose 107 H (74-99) mg/dL Calcium 7.1 L (8.4-10.2) mg/dL Total Bilirubin 2.0 H (0.2-1.3) mg/dL
[2023-03-24] MEDS: SENNOSIDES-DOCUSATE SODIUM 1 EACH TAB PO SCH (17:52)
[2023-03-24] MEDS: traZODone HCL 100 MG TAB PO SCH (20:01)
[2023-03-24] MEDS: ATORVASTATIN 80 MG TAB PO SCH (20:05)
[2023-03-25 06:24] LABS: Anisocytosis Slight; HCT 26.8 % (39.0-53.0); HGB 7.8 gm/dL (13.0-17.5); Hypochromasia Marked; MCH 19.3 pg (25.0-35.0); MCHC 29.3 g/dL (31.0-37.0); MCV 65.8 fL (80.0-100.0); Microcytosis Marked; Platelet Count 218 k/uL (150-450); RBC 4.07 m/uL (4.30-5.90); RDW 18.2 % (11.5-15.5); WBC 16.4 k/uL (3.8-10.6)
[2023-03-25] MEDS: IPRATROPIUM-ALBUTEROL 3 ML NEB INHALATION SCH ×4 (07:30→19:53)
--- NOTE | 2023-03-25 07:35 | P.PN ---
Subjective Progress Note Date: 03/24/23 HISTORY OF PRESENT ILLNESS: This is a 77-year-old male patient of mine with past medical history of non-small cell lung cancer diagnosed in 2009 status post lobectomy, remote history of tobacco use, remote history of alcohol abuse, alcoholic peripheral neuropathy, hypertension, coronary artery disease, paroxysmal atrial fibrillation on eliquis, history of tachybradycardia syndrome status post pacemaker implantation, patient was seen in the ER few days ago with increased shortness of breath, CXR was ok at that time with minimally elevated BNP patient was given Lasix 40 mg IVP and he was sent home he was 96 % on RA and was supposed to see me in the office in few days, unfortunately patient woke up in the morning today with increased shortness of breath, became very anxious and he called EMS who brought him to the ER at [facility], his CXR was read as improvement in the right lung areation with possible pneumonitis in the left lower lobe, and cardiomegaly, he was started on O2 , Zosyn and Zithromax and was placed on lasix 40 mg IVP Q12 hours and was admitted to the hospital for evaluation and treatment, pulmonary consult was obtained. 03/19: Patient is sitting up in bed is feeling better, continues to be on O2 , we will continue with current treatment plan with IV ABX and Diuretics with furosemide along with Farxiga we will monitor input and output and daily weight, PT and OT to see patient along with social work instructor for discharge planning. 03/20: Patient is sitting up in bed he continues to be generally weak, he is a bleeding using a walker, physical therapy has not seen the patient has, switch the patient to oral Bumex since his blood pressures a bit lower side, he appears to be at his dry weight, patient was switched oral Augmentin 875 mg orally twice every day, as the patient is cleared by physical therapy can be discharged home tomorrow morning. 03/21: Patient is sitting up in bed he continues to be generally weak, he appears to be more pale today his hemoglobin is down 7.9, per to have microcytic anemia likely iron deficiency anemia, we will start the patient on Ferrlecit 125 mg IVPB x1 and will repeat his hemoglobin tomorrow morning, patient has been following with Dr. Wolff was an outpatient as a matter fact he has an appointment with him sometimes next month, meanwhile we will continue to work with physical therapy and occupational therapy as well as social work instructor to see the patient required to go to a subacute rehabilitation. 03/22: Patient is sitting up in bed complains of increased weakness, has been s een by PT and it was recommended to go to Sub-Acute rehab , also HGB is down and he will be getting Ferrlicet 125 mg IVPB daily for 2 doses, will need to have GI work up as out patient we will schedule with , 03/23: Patient is sitting in bed, feeling better today, HGB is up to 8.6, no bowel movements, no signs of bleeding but definitely iron deficiency anemia, will require repeated GI work up as outpatient we will continue with iron suplements meanwhile unless active bleeding, we will continue to work with PT and OT and await Prior Authorization for Sub Acute rehabilitation 03/24: Patient remains afebrile, heart rate in the 70s, blood pressure 106/58, pulse ox 96% on room air. Repeat blood work reveals WBC 22.1, hemoglobin 7.1, platelet count 233. Creatinine 1.2. Blood cultures finalized with no growth at 5 days. Repeat chest x-ray reveals complete opacities occasional of the left hemithorax. Right lung is clear. Discharge plan is for subacute rehab at [facility]. Patient is currently waiting for insurance authorization. Once all arrangements are completed, patient will be discharged today in stable condition. REVIEW OF SYSTEMS: Constitutional: No documented fever, no chills, no night sweats. positive for weight change. positive for weakness, fatigue or lethargy. No daytime sleepiness. HEENT: No headache. No blurred vision or double vision, no loss of vision. very hard of Hearing, no ringing in the ears, no dizziness. No nasal drainage or congestion. No epistaxis. No sore throat. Lungs: Improved shortness of breath, occasional cough, no sputum production. no wheezing. Cardiovascular: No chest pain, positive for lower extremity edema. No palpitations. No paroxysmal nocturnal dyspnea. positive for orthopnea, occasio nal dizziness Abdominal: Reports no abdominal pain. No nausea, vomiting. No diarrhea. No constipation. No bloody or tarry stools reports loss of appetite. Genitourinary: No dysuria, increased frequency, urgency. No urinary retention. Musculoskeletal: positive for myalgias. positive for muscle weakness, positive for gait dysfunction, positive for frequent falls, positive for back pain and neck pain. Integumentary: No wounds, no lesions. No rash or pruritus. Neurologic: No aphasia. No facial droop. No change in mentation. No head injury. No headache. No paralysis. No paresthesia. Psychiatric: positive for depression, positive for anxiety. No mood swings. Endocrine: No abnormal blood sugars. No weight change. PHYSICAL EXAMINATION: General: This is a 77-year-old male resting in bed in no distress HEENT: Head is atraumatic, normocephalic, pupils were equal round reactive to light and recommendation, extraocular muscle movement were intact, sclera nonicteric, conjunctivae were pale, mucous membranes of the mouth are somewhat dry. Neck: Supple, no JVP, normal carotid upstroke bilaterally, no lymphadenopathy. Chest: Decreased breath sounds at the bases, no wheezes, no chest wall tenderness, no intercostal retractions. Heart: First heart sound is normal, second heart sound is normal, systolic ejection murmur 2/6 located at the left sternal border. there is PPM in the left upper precordium Abdomen: Soft, nontender, nondistended, positive bowel sounds. Extremities: There is +1 edema no calf tenderness DP +1 bilaterally Neurologic examination: Patient is awake alert and oriented 3, cranial nerves II-12 appear grossly intact, muscle power were 4 out of 5 in upper extremities and 3 out of 5 in bilateral lower extremities, deep tendon reflexes normal bilaterally. ASSESSMENT AND PLAN: 1. Right lower lobe pneumonia left pneumonitis. Continue Augmentin 875 mg orally twice every day , Duoneb qid and Pulmicort 1 mg Neb bid, continue oxygen support as needed 2. Acute on chronic diastolic heart failure. on Bumex 2 mg orally once every day, continue patient on Farxiga 5 mg once every day. 3. Leukocytosis with microcytosis and thrombocytopenia was recently evaluated by oncology, MGUS workup was negative , patient was supposed to have EGD and colonoscopy that he canceled on his own we will try to reschedule again, will follow up with next month 4. History of non-small cell lung cancer in 2009 status post left pneumonectomy. 5. Hypertension and hypertensive cardiovascular disease. Continue Toprol-XL 100 mg daily 6. Chronic diastolic heart failure. Metoprolol 100 mg po daily,we will continue with Bumex 2 mg po daily 7. Paroxysmal atrial fibrillation. Continue patient on eliquis 5 mg po bid and we will continue with Metoprolol ER 100 mg po daily. 8. History of sick sinus syndrome status post pacemaker implantation, stable. 9. Iron deficiency anemia. Start the patient on Ferrlecit 125 mg IV piggyback, repeat the patient's CBC tomorrow morning. 10. Hypothyroidism. Continue levothyroxine 88 g daily. 11. GI prophylaxis. Protonix 40 mg daily. 12. DVT prophylaxis. Continue patient on eliquis. 13. PT/OT evaluation for subacute rehabilitation 14. [facility] can worker consultation for possible subacute rehabilitation. 15. [facility] when Auth is available. Impression and plan of care have been directed as dictated by the signing physic ian. Jada Burr nurse practitioner acting as scribe for signing physician. Objective - Vital Signs Vital signs: Vital Signs Temp 97.8 F 03/24/23 11:55 Pulse 78 03/24/23 11:55 Resp 19 03/24/23 11:55 BP 107/53 03/24/23 11:55 Pulse Ox 100 03/24/23 11:55 FiO2 28 03/19/23 08:48 Intake & Output 03/23/23 03/24/23 03/24/23 18:59 06:59 18:59 Intake Total 100 100 Output Total 200 200 Balance -100 -100 Weight 57.294 kg Intake: Oral 100 100 Output: Urine 200 200 Other: Voiding Method Urinal Urinal # Voids 1 1 - Labs CBC & Chem 7: 03/25/23 05:17 03/24/23 05:24 Labs: Abnormal Lab Results - Last 24 Hours (Table) 03/23/23 03/23/23 03/24/23 Range/Units 12:35 12:35 05:24 WBC 26.5 H 22.18 H (3.8-10.6) k/uL RBC 3.89 L (4.40-5.60) X 10*6/uL Hgb 8.6 L 7.1 L (13.0-17.5) gm/dL Hct 29.4 L 26.2 L (39.0-53.0) % MCV 65.7 L 67.4 L (80.0-100.0) fL MCH 19.1 L 18.3 L (25.0-35.0) pg MCHC 29.1 L 27.1 L (31.0-37.0) g/dL RDW 17.0 H 18.7 H (11.5-15.5) % Neutrophils # 20.3 H 15.76 H (1.3-7.7) k/uL Monocytes # 4.2 H 4.64 H (0-1.0) k/uL Chloride 95 L (98-107) mmol/L Carbon Dioxide 31 H (22-30) mmol/L Anion Gap (4.00-12.00) mmol/L BUN 22 H (9-20) mg/dL Glucose 107 H (74-99) mg/dL Calcium 7.1 L (8.4-10.2) mg/dL Total Bilirubin 2.0 H (0.2-1.3) mg/dL Total Protein (6.2-8.2) d/dL Albumin (3.8-4.9) d/dL 03/24/23 Range/Units 05:24 WBC (3.8-10.6) k/uL RBC (4.40-5.60) X 10*6/uL Hgb (13.0-17.5) gm/dL Hct (39.0-53.0) % MCV (80.0-100.0) fL MCH (25.0-35.0) pg MCHC (31.0-37.0) g/dL RDW (11.5-15.5) % Neutrophils # (1.3-7.7) k/uL Monocytes # (0-1.0) k/uL Chloride (98-107) mmol/L Carbon Dioxide (22-30) mmol/L Anion Gap 13.50 H (4.00-12.00) mmol/L BUN (9-20) mg/dL Glucose (74-99) mg/dL Calcium 7.3 L (8.4-10.2) mg/dL Total Bilirubin (0.2-1.3) mg/dL Total Protein 5.4 L (6.2-8.2) d/dL Albumin 3.5 L (3.8-4.9) d/dL Microbiology - Last 24 Hours (Table) 03/18/23 12:28 Blood Culture - Final Blood 03/18/23 11:42 Blood Culture - Final Blood
[2023-03-25] MEDS: LEVOTHYROXINE 88 MCG TAB PO SCH (07:58)
[2023-03-25] MEDS: PANTOPRAZOLE 40 MG TABLET PO SCH (09:13)
[2023-03-25] MEDS: FERROUS SULFATE 325 MG TAB PO SCH ×2 (09:13→16:47)
[2023-03-25] MEDS: AMOXIC-POT CLAV 875-125MG 1 EACH TAB PO SCH ×2 (09:23→20:09)
[2023-03-25] MEDS: APIXABAN 5 MG TAB PO SCH ×2 (09:24→20:09)
[2023-03-25] MEDS: BUMETANIDE 1 MG TAB PO SCH (09:24)
[2023-03-25] MEDS: MAGNESIUM OXIDE 400 MG TAB PO SCH (09:26)
[2023-03-25] MEDS: DAPAGLIFLOZIN PROPANEDIOL 5 MG TABLET PO SCH (09:26)
[2023-03-25] MEDS: SENNOSIDES-DOCUSATE SODIUM 1 EACH TAB PO SCH (09:27)
[2023-03-25] MEDS: METOPROLOL SUCCINATE (ER) 100 MG TAB.ER.24H PO SCH (09:27)
--- NOTE | 2023-03-25 13:50 | P.PN ---
Subjective Progress Note Date: 03/25/23 HISTORY OF PRESENT ILLNESS: This is a 77-year-old male patient of mine with past medical history of non-small cell lung cancer diagnosed in 2009 status post lobectomy, remote history of tobacco use, remote history of alcohol abuse, alcoholic peripheral neuropathy, hypertension, coronary artery disease, paroxysmal atrial fibrillation on eliquis, history of tachybradycardia syndrome status post pacemaker implantation, patient was seen in the ER few days ago with increased shortness of breath, CXR was ok at that time with minimally elevated BNP patient was given Lasix 40 mg IVP and he was sent home he was 96 % on RA and was supposed to see me in the office in few days, unfortunately patient woke up in the morning today with increased shortness of breath, became very anxious and he called EMS who brought him to the ER at [facility], his CXR was read as improvement in the right lung areation with possible pneumonitis in the left lower lobe, and cardiomegaly, he was started on O2 , Zosyn and Zithromax and was placed on lasix 40 mg IVP Q12 hours and was admitted to the hospital for evaluation and treatment, pulmonary consult was obtained. 03/19: Patient is sitting up in bed is feeling better, continues to be on O2 , we will continue with current treatment plan with IV ABX and Diuretics with furosemide along with Farxiga we will monitor input and output and daily weight, PT and OT to see patient along with social worker assistant for discharge planning. 03/20: Patient is sitting up in bed he continues to be generally weak, he is a bleeding using a walker, physical therapy has not seen the patient has, switch the patient to oral Bumex since his blood pressures a bit lower side, he appears to be at his dry weight, patient was switched oral Augmentin 875 mg orally twice every day, as the patient is cleared by physical therapy can be discharged home tomorrow morning. 03/21: Patient is sitting up in bed he continues to be generally weak, he appears to be more pale today his hemoglobin is down 7.9, per to have microcytic anemia likely iron deficiency anemia, we will start the patient on Ferrlecit 125 mg IVPB x1 and will repeat his hemoglobin tomorrow morning, patient has been following with Dr. Wolff was an outpatient as a matter fact he has an appointment with him sometimes next month, meanwhile we will continue to work with physical therapy and occupational therapy as well as social worker assistant to see the patient required to go to a subacute rehabilitation. 03/22: Patient is sitting up in bed complains of increased weakness, has been s een by PT and it was recommended to go to Sub-Acute rehab , also HGB is down and he will be getting Ferrlicet 125 mg IVPB daily for 2 doses, will need to have GI work up as out patient we will schedule with , 03/23: Patient is sitting in bed, feeling better today, HGB is up to 8.6, no bowel movements, no signs of bleeding but definitely iron deficiency anemia, will require repeated GI work up as outpatient we will continue with iron suplements meanwhile unless active bleeding, we will continue to work with PT and OT and await Prior Authorization for Sub Acute rehabilitation 03/24: Patient remains afebrile, heart rate in the 70s, blood pressure 106/58, pulse ox 96% on room air. Repeat blood work reveals WBC 22.1, hemoglobin 7.1, platelet count 233. Creatinine 1.2. Blood cultures finalized with no growth at 5 days. Repeat chest x-ray reveals complete opacities occasional of the left hemithorax. Right lung is clear. Discharge plan is for subacute rehab at [facility]. Patient is currently waiting for insurance authorization. Once all arrangements are completed, patient will be discharged today in stable condition. 03/25: Patient is seen in follow-up today. He is waiting for insurance authorization for rehab. He has been afebrile, heart rate in the 60s and 70s, blood pressure 104/63 and pulse ox 99% on room air. Repeat blood work reveals WBC 16.4, hemoglobin 7.8 and platelet count 218. REVIEW OF SYSTEMS: Constitutional: No documented fever, no chills, no night sweats. positive for weight change. positive for weakness, fatigue or lethargy. No daytime sleepiness. HEENT: No headache. No blurred vision or double vision, no loss of vision. very hard of Hearing, no ringing in the ears, no dizziness. No nasal drainage or congestion. No epistaxis. No sore throat. Lungs: Improved shortness of breath, occasional cough, no sputum production. no wheezing. Cardiovascular: No chest pain, positive for lower extremity edema. No palpitations. No paroxysmal nocturnal dyspnea. positive for orthopnea, occasional dizziness Abdominal: Reports no abdominal pain. No nausea, vomiting. No diarrhea. No constipation. No bloody or tarry stools reports loss of appetite. Genitourinary: No dysuria, increased frequency, urgency. No urinary retention. Musculoskeletal: positive for myalgias. positive for muscle weakness, positive for gait dysfunction, positive for frequent falls, positive for back pain and neck pain. Integumentary: No wounds, no lesions. No rash or pruritus. Neurologic: No aphasia. No facial droop. No change in mentation. No head injury. No headache. No paralysis. No paresthesia. Psychiatric: positive for depression, positive for anxiety. No mood swings. Endocrine: No abnormal blood sugars. No weight change. PHYSICAL EXAMINATION: General: This is a 77-year-old male resting in bed in no distress HEENT: Head is atraumatic, normocephalic, pupils were equal round reactive to light and recommendation, extraocular muscle movement were intact, sclera nonict stephane, conjunctivae were pale, mucous membranes of the mouth are somewhat dry. Neck: Supple, no JVP, normal carotid upstroke bilaterally, no lymphadenopathy. Chest: Decreased breath sounds at the bases, no wheezes, no chest wall tenderness, no intercostal retractions. Heart: First heart sound is normal, second heart sound is normal, systolic ejection murmur 2/6 located at the left sternal border. there is PPM in the left upper precordium Abdomen: Soft, nontender, nondistended, positive bowel sounds. Extremities: min edema no calf tenderness DP +1 bilaterally Neurologic examination: Patient is awake alert and oriented 3, cranial nerves II-12 appear grossly intact, muscle power were 4 out of 5 in upper extremities and 3 out of 5 in bilateral lower extremities, deep tendon reflexes normal angie aterally. ASSESSMENT AND PLAN: 1. Right lower lobe pneumonia left pneumonitis. Continue Augmentin 875 mg orally twice every day , Duoneb qid and Pulmicort 1 mg Neb bid, continue oxygen support as needed 2. Acute on chronic diastolic heart failure. on Bumex 2 mg orally once every day, continue patient on Farxiga 5 mg once every day. 3. Leukocytosis with microcytosis and thrombocytopenia was recently evaluated by oncology, MGUS workup was negative , patient was supposed to have EGD and colonoscopy that he canceled on his own we will try to reschedule again, will follow up with next month 4. History of non-small cell lung cancer in 2009 status post left pneumonectomy. 5. Hypertension and hypertensive cardiovascular disease. Continue Toprol-XL 100 mg daily 6. Chronic diastolic heart failure. Metoprolol 100 mg po daily,we will continue with Bumex 2 mg po daily 7. Paroxysmal atrial fibrillation. Continue patient on eliquis 5 mg po bid and we will continue with Metoprolol ER 100 mg po daily. 8. History of sick sinus syndrome status post pacemaker implantation, stable. 9. Iron deficiency anemia. Start the patient on Ferrlecit 125 mg IV piggyback, repeat the patient's CBC tomorrow morning. 10. Hypothyroidism. Continue levothyroxine 88 g daily. 11. GI prophylaxis. Protonix 40 mg daily. 12. DVT prophylaxis. Continue patient on eliquis. 13. PT/OT evaluation for subacute rehabilitation 14. [place] worker consultation for possible subacute rehabilitation. 15. [facility] when Auth is available. Impression and plan of care have been directed as dictated by the signing physician. Jada Burr nurse practitioner acting as scribe for signing physician. Objective - Vital Signs Vital signs: Vital Signs Temp 97.6 F 03/25/23 12:25 Pulse 64 03/25/23 12:25 Resp 18 03/25/23 12:25 BP 104/63 03/25/23 12:25 Pulse Ox 99 03/25/23 12:25 FiO2 28 03/19/23 08:48 Intake & Output 03/24/23 03/25/23 03/25/23 18:59 06:59 18:59 Output Total 450 Balance -450 Output: Urine 450 Other: Voiding Method Urinal Urinal # Voids 1 # Bowel Movements 1 - Labs CBC & Chem 7: 03/25/23 05:17 03/24/23 05:24 Labs: Abnormal Lab Results - Last 24 Hours (Table) 03/25/23 Range/Units 05:17 WBC 16.4 H (3.8-10.6) k/uL RBC 4.07 L (4.30-5.90) m/uL Hgb 7.8 L (13.0-17.5) gm/dL Hct 26.8 L (39.0-53.0) % MCV 65.8 L (80.0-100.0) fL MCH 19.3 L (25.0-35.0) pg MCHC 29.3 L (31.0-37.0) g/dL RDW 18.2 H (11.5-15.5) %
[2023-03-25] MEDS: ATORVASTATIN 80 MG TAB PO SCH (20:10)
[2023-03-25] MEDS: traZODone HCL 100 MG TAB PO SCH (20:10)
[2023-03-25 21:04] VITALS: RESP 16
[2023-03-26] MEDS: LEVOTHYROXINE 88 MCG TAB PO SCH (06:06)
[2023-03-26] MEDS: IPRATROPIUM-ALBUTEROL 3 ML NEB INHALATION SCH ×3 (07:43→15:18)
[2023-03-26] MEDS: SENNOSIDES-DOCUSATE SODIUM 1 EACH TAB PO SCH (08:27)
[2023-03-26] MEDS: FERROUS SULFATE 325 MG TAB PO SCH (08:27)
[2023-03-26] MEDS: METOPROLOL SUCCINATE (ER) 100 MG TAB.ER.24H PO SCH (08:27)
[2023-03-26] MEDS: MAGNESIUM OXIDE 400 MG TAB PO SCH (08:27)
[2023-03-26] MEDS: PANTOPRAZOLE 40 MG TABLET PO SCH (08:27)
[2023-03-26] MEDS: APIXABAN 5 MG TAB PO SCH (08:27)
[2023-03-26] MEDS: AMOXIC-POT CLAV 875-125MG 1 EACH TAB PO SCH (08:27)
[2023-03-26] MEDS: BUMETANIDE 1 MG TAB PO SCH (08:27)
[2023-03-26] MEDS: DAPAGLIFLOZIN PROPANEDIOL 5 MG TABLET PO SCH (08:28)
[2023-03-26 13:46] VITALS: BP 113/62; TEMP 98.1
[2023-03-26 15:19] VITALS: BMI 17.6
[2023-03-26 15:36] VITALS: PULSE 70
== END 2023-03-26 16:34 | disposition home health service (06) | DRG 291 ==
LOC: EC 09:53 → 4SSUR 11:54 → 1SOBS 13:47 → 5NMEDONC 03-19 17:20
PROVIDERS: ADMIT Internal Medicine; ATTEND Internal Medicine
DX: I11.0 Hypertensive heart disease with heart failure (principal); I50.33 Acute on chronic diastolic (congestive) heart failure; J18.9 Pneumonia, unspecified organism; G62.1 Alcoholic polyneuropathy; I48.0 Paroxysmal atrial fibrillation; Z79.01 Long term (current) use of anticoagulants; D50.9 Iron deficiency anemia, unspecified; I25.10 Atherosclerotic heart disease of native coronary artery without angina pectoris; E78.5 Hyperlipidemia, unspecified; J98.4 Other disorders of lung; E03.9 Hypothyroidism, unspecified; Z79.84 Long term (current) use of oral hypoglycemic drugs; Z79.890 Hormone replacement therapy; Z79.899 Other long term (current) drug therapy; Z80.0 Family history of malignant neoplasm of digestive organs; I25.2 Old myocardial infarction; Z82.49 Family history of ischemic heart disease and other diseases of the circulatory system; Z85.118 Personal history of other malignant neoplasm of bronchus and lung; Z85.46 Personal history of malignant neoplasm of prostate; Z90.2 Acquired absence of lung [part of]; Z95.0 Presence of cardiac pacemaker; Z87.891 Personal history of nicotine dependence
CPT/HCPCS: 36415; 71046; 80053; 83605; 83735; 83880; 84145; 84484; 85025; 85027; 85610; 85730; 86738; 87040; 87449; 87635; 93005; 94640; 94760; 96365; 96367; 96375; 99285